=== PATIENT | female | born 1940 | race Caucasian/White ===

== ENCOUNTER 2020-12-22 08:13 | Outpatient (REF) | payer MEDICARE, OTHER, SELFPAY ==
--- NOTE | ~2020-12-22 | MM_ITS ---
EXAMINATION: MM SCREENING DIGITAL BREAST TOMOSYNTHESIS, BILATERAL CLINICAL INFORMATION: Screening. Asymptomatic. Status post right lumpectomy. COMPARISON: Mammography: December 18, 2019 and studies dating back to June 12, 2012 TECHNIQUE: Digital breast tomosynthesis is performed in both the craniocaudal and mediolateral oblique views along with computer-aided detection (CAD). Synthesized 2D images are generated from the tomosynthesis. FINDINGS: There are scattered areas of fibroglandular density (ACR BI-RADS breast composition Category b). There are no significant masses, abnormal calcifications, or other abnormalities. Postsurgical change again seen within the right breast. MM/MM tomosynthesis screening BI IMPRESSION: There are no significant changes from prior study. ASSESSMENT: BI-RADS 2: Benign RECOMMENDATION: Routine annual mammography screening. This patient's information was entered into a reminder system with a target due date for their next mammogram.
== END 2020-12-22 08:14 | disposition home or self-care (01) ==
LOC: HO.MAMMO 08:13
PROVIDERS: PCP Student in an Organized Health Care Education/Training Program; Visit Provider Student in an Organized Health Care Education/Training Program
DX: Z12.31 Encounter for screening mammogram for malignant neoplasm of breast (principal)
CPT/HCPCS: 77063; 77067

== ENCOUNTER 2021-12-13 14:47 | Inpatient (IN) | payer MEDICARE, OTHER, SELFPAY ==
[2021-12-13] VITALS (10 sets, daily range): BP systolic 98–194; BP diastolic 47–90; PULSE 75–114; RESP 16–22; TEMP 36.7–37.9; O2SAT 83–100; BMI 22.2
--- NOTE | ~2021-12-13 | XR_ITS ---
EXAMINATION: XR CHEST CLINICAL INFORMATION: Dyspnea. COMPARISON: None TECHNIQUE: Frontal view of the chest was obtained. FINDINGS: The lungs are fairly well-expanded and clear of acute pneumonic process. There is slight prominence of bilateral parahilar vascular/interstitial markings suspicious for interstitial pneumonitis or edema. The heart size is normal. There is moderate spondylosis of dorsal spine. No lytic process. XR/XR chest 1V IMPRESSION: Prominent bilateral parahilar vascular/interstitial markings suggestive of interstitial pneumonitis or edema.
--- NOTE | 2021-12-13 15:01 | ECG_ITS ---
Test Reason : sob Blood Pressure : / mmHG Vent. Rate : 100 BPM Atrial Rate : 100 BPM P-R Int : 142 ms QRS Dur : 068 ms QT Int : 356 ms P-R-T Axes : 000 136 141 degrees QTc Int : 459 ms Suspect limb lead reversal, interpretation assumes no reversal Normal sinus rhythm Low voltage QRS Lateral infarct , age undetermined Abnormal ECG When compared with ECG of 10-JAN-2009 14:54, Lateral infarct is now Present ST now depressed in Anterolateral leads Nonspecific T wave abnormality now evident in Lateral leads Referred By: Vera Blanco Electronically Signed By:SIS HULL MD
--- NOTE | 2021-12-13 15:09 | ED_ITS ---
HPI - SOB/Dyspnea General Chief Complaint: Dyspnea Stated Complaint: DIFF BREATHING Time Seen by Provider: 12/13/21 15:01 Source: patient Mode of arrival: EMS (from PCP office) Limitations: no limitations History of Present Illness HPI Narrative: 81 yo female hx of smoking, HTN, HLD, remote pneumonia in the past comes in with c/o 5 days of cough, shortness of breath, low grade fevers and not feeling well. Presented to PCP office found to be hypoxic with sats in 80s. She denies travel or sick contacts. She did start using an air conditioner (wall or mini split) about a week ago. MD elicited complaint: shortness of breath and cough Pertinent past history: pneumonia Onset (ago): day(s) (5) Timing: progressively worsening Severity: severe Exacerbating factors: exertion and coughing Relieving factors: oxygen and rest Associated symptoms: fever, cough, wheezing and chest congestion Treatment prior to arrival: oxygen Related Data Home Medications Medication Instructions Recorded Confirmed gemfibrozil 600 mg tablet 600 mg PO BID 12/13/21 12/13/21 hydrochlorothiazide 25 mg tablet 25 mg PO BEDTIME 12/13/21 12/13/21 Allergies Allergy/AdvReac Type Severity Reaction Status Date / Time No Known Allergies Allergy Verified 12/13/21 15:01 [No Known Allergies*] Review of Systems Review of Systems: Constitutional : pos Fever, pos Chills ENT/Mouth : No sore throat, No Rhinorrhea, No Swallowing Difficulty Eyes: No Eye Pain, No Swelling, No Redness Cardiovascular : No Chest Pain, positive SOB, No Orthopnea, positive Edema Respiratory : pos Cough, pos Sputum, pos Wheezing, positive dyspnea Gastrointestinal : No Nausea, No Vomiting, No Diarrhea, No abdominal Pain, No Hematochezia, No Melena Genitourinary : No Dysuria, No Urinary Frequency, No Hematuria Musculoskeletal : No joint pain, No Myalgias Skin : No Skin Lesions, No rash Neuro : pos Weakness, No Numbness, No Dizziness, No Headache Psych : No Anxiety/Panic, No Depression Heme/Lymph: No Bruising, No Lymphadenopathy Endocrine : No Polyuria, No Polydipsia All other systems reviewed and are negative PMFSH Past Medical History Attestation statement: The following information was validated with the patient. Medical History HTN (hypertension) Hypercholesteremia IBS (irritable bowel syndrome) Social History Social History Patient Tobacco Use Status: Current everyday Tobacco user Use of substances other than those prescribed or required for medical reasons: No Advance Directives: No Advance Directives Information Provided: Yes Physical Exam Vital Signs: Vital Signs: Last Vital Signs Temp 99.8 F 12/13/21 14:53 Pulse 107 H 12/13/21 16:03 Resp 21 H 12/13/21 16:03 BP 119/66 12/13/21 16:03 Pulse Ox 96 12/13/21 16:03 O2 Del Method 12/13/21 16:03 O2 Flow Rate 2 12/13/21 16:03 BMI result Body Mass Index 22.2 Appearance: Alert. Oriented X3. Mild acute distress. Eyes: Pupils equal, round and reactive to light. ENT: Pharynx normal. Neck: Normal inspection. Neck supple. CVS: tachycardic heart rate and rhythm. Pulses normal. Respiratory: Mild respiratory distress. Breath sounds coarse with junky cough along with rales at bases, upper lungs wheezes noted Abdomen: Soft and nontender. Skin: Skin warm and dry. Normal skin color. Normal skin turgor. Extremities: No lower extremity edema. No calf ttp Neuro: Oriented X 3. No motor deficit. No sensory deficit. Course Course Course Narrative: patient denies chest pain has new ST deg depressions but EKG done while patient initially arrived hypoxic, trop flat possibly related to demand from hypoxia MDM - SOB/Dyspnea MDM Narrative Medical decision making narrative: 81 yo female hx of smoking, HTN, HLD, remote pneumonia comes in with 5 days of cough, fevers, [place] - very coarse and chest congestion. At this time the patient is hypoxic on arrival will obtain labs, EKG, CXR for pneumonia, cultures, supplemental O2, she is wheezing on exam and is a heavy smoker IV solumedrol and neb ordered along with empiric rocephin. Likely admit. Lab Data Result diagrams: 12/13/21 15:28 12/13/21 15:28 Labs: Lab Results 12/13/21 12/13/21 12/13/21 Range/Units 15:28 15:28 15:28 WBC 11.8 H (4.8-10.8) X10*3/uL RBC 4.50 (4.20-5.50) X10*6/uL Hgb 14.9 (12.0-16.0) g/dl Hct 46.2 (37.0-47.0) % MCV 102.7 H (80.0-98.0) fL MCH 33.1 H (27.0-33.0) pg MCHC 32.3 (31.0-35.0) g/dl RDW 12.8 (11.0-16.0) % Plt Count 276 (160-400) X10*3/uL MPV 10.2 (9.4-12.3) fL Immature Gran % (Auto) 0.8 H (0.0-0.4) % Neut % (Auto) 86.6 H (45-73) % Lymph % (Auto) 7.0 L (20-40) % [place] % (Auto) 4.5 (2-11) % Eos % (Auto) 0.8 (0-4) % Baso % (Auto) 0.3 (0-2) % Lymph # (Auto) 0.8 L (1.2-4.9) X10*3/uL [place] # (Auto) 0.5 (0.1-1.2) X10*3/uL Eos # (Auto) 0.1 (0.0-0.4) X10*3/uL Baso # (Auto) 0.0 (0.0-0.2) X10*3/uL Abs Immat Gran (auto) 0.09 H (0.00-0.03) X10*3/uL Absolute Neuts (auto) 10.2 H (2.0-8.3) x10*3/uL Absolute Nucleated RBC 0.000 (0.0-0.012) X10*3/uL Nucleated RBC % (auto) 0.0 (0.0-0.2) /100WBC PT (9.9-13.0) SEC INR (0.9-1.1) VBG pH (7.32-7.43) VBG pCO2 mmHg VBG pO2 mmHg VBG HCO3 (22-26) mmol/L VBG O2 Saturation % VBG Base Excess mmol/L Sodium 139 (135-145) mmol/L Potassium 3.6 (3.3-5.1) mmol/L Chloride 97 (96-108) mmol/L Carbon Dioxide 25 (22-29) mmol/L Anion Gap 21 H (12-20) BUN 23 H (9-16) mg/dL Creatinine 1.26 (0.5-1.4) mg/dL Estim Creat Clear Calc 33.3 Estimated GFR 41 Random Glucose 137 H (60-115) mg/dL Lactic Acid (0.5-2.0) mmol/L Calcium 9.2 (8.4-10.2) mg/dL Magnesium 2.3 (1.6-2.6) mg/dL Total Bilirubin 0.4 (0.0-1.0) mg/dL Direct Bilirubin 0.2 (0.0-0.5) mg/dL AST 27 (5-31) U/L ALT 14 (0-31) U/L Alkaline Phosphatase 91 (39-117) U/L Troponin I High Sens 5.7 (<3.5-17.0) ng/L B-Natriuretic Peptide 86 (<100) pg/mL Total Protein 7.7 (6.5-8.0) g/dL Albumin 4.5 (3.5-5.0) g/dL Influenza Type A (PCR) (Negative) Influenza Type B (PCR) (Negative) RSV RNA Qual (PCR) (Negative) SARS-CoV-2 RNA (RT-PCR) (Negative) 12/13/21 12/13/21 12/13/21 Range/Units 15:28 15:28 15:28 WBC (4.8-10.8) X10*3/uL RBC (4.20-5.50) X10*6/uL Hgb (12.0-16.0) g/dl Hct (37.0-47.0) % MCV (80.0-98.0) fL MCH (27.0-33.0) pg MCHC (31.0-35.0) g/dl RDW (11.0-16.0) % Plt Count (160-400) X10*3/uL MPV (9.4-12.3) fL Immature Gran % (Auto) (0.0-0.4) % Neut % (Auto) (45-73) % Lymph % (Auto) (20-40) % [place] % (Auto) (2-11) % Eos % (Auto) (0-4) % Baso % (Auto) (0-2) % Lymph # (Auto) (1.2-4.9) X10*3/uL [place] # (Auto) (0.1-1.2) X10*3/uL Eos # (Auto) (0.0-0.4) X10*3/uL Baso # (Auto) (0.0-0.2) X10*3/uL Abs Immat Gran (auto) (0.00-0.03) X10*3/uL Absolute Neuts (auto) (2.0-8.3) x10*3/uL Absolute Nucleated RBC (0.0-0.012) X10*3/uL Nucleated RBC % (auto) (0.0-0.2) /100WBC PT 11.8 (9.9-13.0) SEC INR 1.0 (0.9-1.1) VBG pH (7.32-7.43) VBG pCO2 mmHg VBG pO2 mmHg VBG HCO3 (22-26) mmol/L VBG O2 Saturation % VBG Base Excess mmol/L Sodium (135-145) mmol/L Potassium (3.3-5.1) mmol/L Chloride (96-108) mmol/L Carbon Dioxide (22-29) mmol/L Anion Gap (12-20) BUN (9-16) mg/dL Creatinine (0.5-1.4) mg/dL Estim Creat Clear Calc Estimated GFR Random Glucose (60-115) mg/dL Lactic Acid 2.0 (0.5-2.0) mmol/L Calcium (8.4-10.2) mg/dL Magnesium (1.6-2.6) mg/dL Total Bilirubin (0.0-1.0) mg/dL Direct Bilirubin (0.0-0.5) mg/dL AST (5-31) U/L ALT (0-31) U/L Alkaline Phosphatase (39-117) U/L Troponin I High Sens (<3.5-17.0) ng/L B-Natriuretic Peptide (<100) pg/mL Total Protein (6.5-8.0) g/dL Albumin (3.5-5.0) g/dL Influenza Type A (PCR) NEGATIVE (Negative) Influenza Type B (PCR) NEGATIVE (Negative) RSV RNA Qual (PCR) POSITIVE A (Negative) SARS-CoV-2 RNA (RT-PCR) NEGATIVE (Negative) 12/13/21 Range/Units 15:30 WBC (4.8-10.8) X10*3/uL RBC (4.20-5.50) X10*6/uL Hgb (12.0-16.0) g/dl Hct (37.0-47.0) % MCV (80.0-98.0) fL MCH (27.0-33.0) pg MCHC (31.0-35.0) g/dl RDW (11.0-16.0) % Plt Count (160-400) X10*3/uL MPV (9.4-12.3) fL Immature Gran % (Auto) (0.0-0.4) % Neut % (Auto) (45-73) % Lymph % (Auto) (20-40) % [place] % (Auto) (2-11) % Eos % (Auto) (0-4) % Baso % (Auto) (0-2) % Lymph # (Auto) (1.2-4.9) X10*3/uL [place] # (Auto) (0.1-1.2) X10*3/uL Eos # (Auto) (0.0-0.4) X10*3/uL Baso # (Auto) (0.0-0.2) X10*3/uL Abs Immat Gran (auto) (0.00-0.03) X10*3/uL Absolute Neuts (auto) (2.0-8.3) x10*3/uL Absolute Nucleated RBC (0.0-0.012) X10*3/uL Nucleated RBC % (auto) (0.0-0.2) /100WBC PT (9.9-13.0) SEC INR (0.9-1.1) VBG pH 7.35 (7.32-7.43) VBG pCO2 52 mmHg VBG pO2 35 mmHg VBG HCO3 29 H (22-26) mmol/L VBG O2 Saturation 50.0 % VBG Base Excess 2.7 mmol/L Sodium (135-145) mmol/L Potassium (3.3-5.1) mmol/L Chloride (96-108) mmol/L Carbon Dioxide (22-29) mmol/L Anion Gap (12-20) BUN (9-16) mg/dL Creatinine (0.5-1.4) mg/dL Estim Creat Clear Calc Estimated GFR Random Glucose (60-115) mg/dL Lactic Acid (0.5-2.0) mmol/L Calcium (8.4-10.2) mg/dL Magnesium (1.6-2.6) mg/dL Total Bilirubin (0.0-1.0) mg/dL Direct Bilirubin (0.0-0.5) mg/dL AST (5-31) U/L ALT (0-31) U/L Alkaline Phosphatase (39-117) U/L Troponin I High Sens (<3.5-17.0) ng/L B-Natriuretic Peptide (<100) pg/mL Total Protein (6.5-8.0) g/dL Albumin (3.5-5.0) g/dL Influenza Type A (PCR) (Negative) Influenza Type B (PCR) (Negative) RSV RNA Qual (PCR) (Negative) SARS-CoV-2 RNA (RT-PCR) (Negative) ECG Data Attestation: I personally reviewed and interpreted this ECG as follows: ECG interpretation date: 12/13/21 ECG interpretation time: 15:17 Interpretation: Rate: 99 Rhythm: NSR [place]: normal Normal P waves. Normal RAJNI. Normal QRS complex. ST T wave : nonspecific no SURENDRA new inferior and lateral ST depressions qTC: prolonged prior studies: changed from 2008 The study has been interpreted contemporaneously by me. . Discharge Plan Discharge Clinical Impression: Hypoxia, Community acquired pneumonia, RSV bronchitis, ST segment changes on electrocardiogram Patient Disposition: Admitted As Inpatient
--- NOTE | 2021-12-13 15:12 | ECG_ITS ---
Test Reason : cp Blood Pressure : / mmHG Vent. Rate : 099 BPM Atrial Rate : 099 BPM P-R Int : 142 ms QRS Dur : 070 ms QT Int : 358 ms P-R-T Axes : 068 061 071 degrees QTc Int : 459 ms Normal sinus rhythm Possible Left atrial enlargement Nonspecific ST abnormality Abnormal ECG When compared with ECG of 13-DEC-2021 15:01, QRS axis Shifted left Nonspecific T wave abnormality no longer evident in Lateral leads Referred By: Vera Blanco Electronically Signed By:SIS HULL MD
[2021-12-13] MEDS: Acetaminophen 325 MG TABLET 650 MG PO ×2 (15:16→21:03)
[2021-12-13] MEDS: methylPREDNISolone Sod Succ 125 MG/2 ML VIAL IVPUSH (15:17)
[2021-12-13] MEDS: Albuterol Sulfate (0.083%) 2.5 MG/3 ML VIAL.NEB INHALE (15:26)
[2021-12-13] MEDS: cefTRIAXone sodium 1 GM in 0.9 % Sodium Chloride 50 ML IV (15:32)
[2021-12-13 15:39] LABS: MANUAL DIFF FLAG NO
[2021-12-13 15:40] LABS: Basophils Percent Auto 0.3 % (0-2); Eosinophils Absolute Auto 0.1 X10*3/uL (0.0-0.4); Eosinophils Percent Auto 0.8 % (0-4); Hematocrit 46.2 % (37.0-47.0); Hemoglobin 14.9 g/dl (12.0-16.0); Imm Gran Abs Auto 0.09 X10*3/uL (0.00-0.03); Imm Gran Pct Auto 0.8 % (0.0-0.4); Lymphocytes Absolute Auto 0.8 X10*3/uL (1.2-4.9); Mean Corpuscular HGB Conc 32.3 g/dl (31.0-35.0); Mean Corpuscular Hemoglobin 33.1 pg (27.0-33.0); Mean Corpuscular Volume 102.7 fL (80.0-98.0); Mean Platelet Volume 10.2 fL (9.4-12.3); Monocytes Absolute Auto 0.5 X10*3/uL (0.1-1.2); Monocytes Percent Auto 4.5 % (2-11); Neutrophils Absolute Auto 10.2 x10*3/uL (2.0-8.3); Neutrophils Percent Auto 86.6 % (45-73); Platelet Count 276 X10*3/uL (160-400); Red Cell Distribution Width 12.8 % (11.0-16.0); White Blood Count 11.8 X10*3/uL (4.8-10.8)
[2021-12-13 15:44] LABS: VBG Base Excess 2.7 mmol/L; VBG HCO3 29 mmol/L (22-26); VBG pCO2 52 mmHg; VBG pH 7.35 (7.32-7.43); VBG pO2 35 mmHg
[2021-12-13 15:48] LABS: Prothrombin Time 11.8 SEC (9.9-13.0)
[2021-12-13 16:03] LABS: Alanine Aminotransferase 14 U/L (0-31); Albumin Level 4.5 g/dL (3.5-5.0); Alkaline Phosphatase 91 U/L (39-117); Anion Gap 21 (12-20); Aspartate Amino Transferase 27 U/L (5-31); Bilirubin Direct 0.2 mg/dL (0.0-0.5); Bilirubin Total 0.4 mg/dL (0.0-1.0); Blood Urea Nitrogen 23 mg/dL (9-16); Calcium 9.2 mg/dL (8.4-10.2); Carbon Dioxide 25 mmol/L (22-29); Chloride 97 mmol/L (96-108); Creatinine Clr Calc Pharmacy 33.3; Estimated Glomerular Filt Rate 41; Glucose Random 137 mg/dL (60-115); Magnesium 2.3 mg/dL (1.6-2.6); Potassium 3.6 mmol/L (3.3-5.1); Sodium 139 mmol/L (135-145); Total Protein 7.7 g/dL (6.5-8.0)
[2021-12-13 16:16] LABS: B Type Natriuretic Peptide 86 pg/mL (<100); Troponin-I High Sensitivity 5.7 ng/L (<3.5-17.0)
[2021-12-13 16:20] LABS: Influenza A PCR NEGATIVE (Negative); Influenza B PCR NEGATIVE (Negative); Resp Syncy Virus RNA Qual PCR POSITIVE (Negative); SARS COV2 PCR INHOUSE NEGATIVE (Negative)
--- NOTE | 2021-12-13 16:24 | PHA.MEDREC ---
med rec complete, no issues Pharmacy Consult ? Medication Reconciliation Pharmacy has completed the medication reconciliation.
--- NOTE | 2021-12-13 16:29 | P.HPHOSP_ITS ---
History of Present Illness Date of Service: 12/13/21 Chief Complaint: Shortness of breath 81-year-old woman presented to the ER with complaints of worsening shortness of breath over the last several days. She reports a family member was recently diagnosed with RSV. She reported fever last night. She denied chest pain, nausea, vomiting, diarrhea, history of asthma or COPD. She continues to smoke about 5-6 cigarettes a day. She reports her symptoms started with allergy type symptoms initially. Chest x-ray shows some atelectasis, white blood cell count 11.8, initial oxygen saturation of 83% on room air. In the ER, she was given albuterol, Solu-Medrol, Rocephin and azithromycin. She will be admitted for further management and treatment of acute hypoxic respiratory failure secondary to RSV. Review of Systems Review of Systems: reported fever last night respiratory see HPI cardiovascular denies chest pain gastrointestinal denies any dysphagia abdominal pain nausea vomiting or diarrhea genitourinary denies any dysuria frequency or hematuria musculoskeletal denies any joint pain or swelling neuropsych denies any weakness or seizures all other systems reviewed are negative [facility] Medical History (Updated 12/13/21 @ 16:35 by Xin Keene NP) Diverticulosis HTN (hypertension) Hypercholesteremia IBS (irritable bowel syndrome) Family History (Updated 12/13/21 @ 16:34 by Xin Keene NP) Sister Breast cancer Surgical History (Updated 12/13/21 @ 16:35 by Xin Keene NP) H/O colonoscopy Social History (Updated 12/13/21 @ 16:35 by Xin Keene NP) Patient Tobacco Use Status: Current everyday Tobacco user Cigarettes Per Day: 5 Use of substances other than those prescribed or required for medical reasons: No Advance Directives: No Advance Directives Information Provided: Yes Meds Allergies Allergy/AdvReac Type Severity Reaction Status Date / Time No Known Allergies Allergy Verified 12/13/21 15:01 [No Known Allergies*] Active Medications: Current Medications Azithromycin 500 mg/ Sodium (Chloride) 250 mls @ 125 mls/hr IV ONCE ONE Stop: 12/13/21 17:53 Sodium Chloride (Ns) 500 mls @ 500 mls/hr IV .Q1H WOODY Stop: 12/13/21 17:14 Pharmacy Consult (Consult Rx Perform Med Rec) 1 each MISCELLANE ONCE PRN PRN Reason: Consult order Home Medications Medication Instructions Recorded Confirmed Last Taken Type gemfibrozil 600 mg tablet 600 mg PO BID 12/13/21 12/13/21 12/12/21 History hydrochlorothiazide 25 mg tablet 25 mg PO BEDTIME 12/13/21 12/13/21 12/12/21 His tory pravastatin 20 mg tablet 20 mg PO BEDTIME 12/13/21 12/13/21 12/12/21 History Physical Exam Vital Signs and Narrative: Vital Signs: Last Vital Signs Temp 99.8 F 12/13/21 14:53 Pulse 107 H 12/13/21 16:03 Resp 21 H 12/13/21 16:03 BP 119/66 12/13/21 16:03 Pulse Ox 96 12/13/21 16:03 O2 Del Method 12/13/21 16:03 O2 Flow Rate 2 12/13/21 16:03 BMI result Body Mass Index 22.2 Results Labs CBC and Chem 7: 12/13/21 15:28 12/13/21 15:28 Labs: Laboratory Results - last 24 hr 12/13/21 12/13/21 12/13/21 15:28 15:28 15:28 MCV 102.7 H MCH 33.1 H MCHC 32.3 RDW 12.8 Plt Count 276 MPV 10.2 Immature Gran % (Auto) 0.8 H Neut % (Auto) 86.6 H Lymph % (Auto) 7.0 L [place] % (Auto) 4.5 Eos % (Auto) 0.8 Baso % (Auto) 0.3 Lymph # (Auto) 0.8 L [place] # (Auto) 0.5 Eos # (Auto) 0.1 Baso # (Auto) 0.0 Abs Immat Gran (auto) 0.09 H Absolute Neuts (auto) 10.2 H Absolute Nucleated RBC 0.000 Nucleated RBC % (auto) 0.0 PT INR VBG pH VBG pCO2 VBG pO2 VBG HCO3 VBG O2 Saturation VBG Base Excess Anion Gap 21 H Estim Creat Clear Calc 33.3 Estimated GFR 41 Random Glucose 137 H Lactic Acid Calcium 9.2 Magnesium 2.3 Total Bilirubin 0.4 Direct Bilirubin 0.2 AST 27 ALT 14 Alkaline Phosphatase 91 Troponin I High Sens 5.7 B-Natriuretic Peptide 86 Total Protein 7.7 Albumin 4.5 Influenza Type A (PCR) Influenza Type B (PCR) RSV RNA Qual (PCR) SARS-CoV-2 RNA (RT-PCR) 12/13/21 12/13/21 12/13/21 15:28 15:28 15:28 MCV MCH MCHC RDW Plt Count MPV Immature Gran % (Auto) Neut % (Auto) Lymph % (Auto) [place] % (Auto) Eos % (Auto) Baso % (Auto) Lymph # (Auto) [place] # (Auto) Eos # (Auto) Baso # (Auto) Abs Immat Gran (auto) Absolute Neuts (auto) Absolute Nucleated RBC Nucleated RBC % (auto) PT 11.8 INR 1.0 VBG pH VBG pCO2 VBG pO2 VBG HCO3 VBG O2 Saturation VBG Base Excess Anion Gap Estim Creat Clear Calc Estimated GFR Random Glucose Lactic Acid 2.0 Calcium Magnesium Total Bilirubin Direct Bilirubin AST ALT Alkaline Phosphatase Troponin I High Sens B-Natriuretic Peptide Total Protein Albumin Influenza Type A (PCR) NEGATIVE Influenza Type B (PCR) NEGATIVE RSV RNA Qual (PCR) POSITIVE A SARS-CoV-2 RNA (RT-PCR) NEGATIVE 12/13/21 15:30 MCV MCH MCHC RDW Plt Count MPV Immature Gran % (Auto) Neut % (Auto) Lymph % (Auto) [place] % (Auto) Eos % (Auto) Baso % (Auto) Lymph # (Auto) [place] # (Auto) Eos # (Auto) Baso # (Auto) Abs Immat Gran (auto) Absolute Neuts (auto) Absolute Nucleated RBC Nucleated RBC % (auto) PT INR VBG pH 7.35 VBG pCO2 52 VBG pO2 35 VBG HCO3 29 H VBG O2 Saturation 50.0 VBG Base Excess 2.7 Anion Gap Estim Creat Clear Calc Estimated GFR Random Glucose Lactic Acid Calcium Magnesium Total Bilirubin Direct Bilirubin AST ALT Alkaline Phosphatase Troponin I High Sens B-Natriuretic Peptide Total Protein Albumin Influenza Type A (PCR) Influenza Type B (PCR) RSV RNA Qual (PCR) SARS-CoV-2 RNA (RT-PCR) Assessment and Plan (1) Hypoxia: Status: Acute Plan 81-year-old woman admitted acute hypoxic respiratory failure secondary to RSV Acute hypoxic respiratory failure Secondary to RSV, clinical pneumonia Chest x-ray showing prominent bilateral perihilar vascular interstitial markings suggestive of interstitial pneumonitis Has resolved with oxygen therapy continue supplemental oxygen Rocephin, azithromycin Follow cultures Robitussin for cough Tobacco use Discussed the importance of smoking cessation Offered NRT Hypertension Continue hydrochlorothiazide Hyperlipidemia Continue statin DVT prophylaxis with Lovenox Attending Dr Crowder Full code Patient likely requires 2 midnights For treatment of acute hypoxic respiratory failure secondary to RSV and clinical pneumonia requiring IV antibiotics and s upplemental oxygen Quality Stroke Does the patient have a stroke diagnosis?: No VTE Prior VTE?: No VTE Risk Level:: Medical - moderate - high VTE Device Contraindication: Treatment Not Indicated VTE Drug Contraindication: N/A - Med Ordered
[2021-12-13] MEDS: 0.9 % Sodium Chloride 500 ML IV (16:35)
[2021-12-13] MEDS: Azithromycin 500 MG in 0.9 % Sodium Chloride 250 ML 125 MG IV (16:36)
[2021-12-13 17:27] LABS: Venous Blood Gas Refer to POC result
[2021-12-13] MEDS: Enoxaparin Sodium 40 MG/0.4 ML SYRINGE SUBCUT (18:44)
[2021-12-13 20:48] LABS: Appearance Urine CLEAR; Color Urine YELLOW; Glucose Urine UA NEG (NEG); Leukocyte Esterase Urine 2+ (NEG); Nitrite Urine POS (NEG); PH 5.5 (5.0-8.0); UACC Culture Trigger YES; Urine Blood 2+ (NEG); Urine Ketones NEG (NEG); Urine Protein NEG (NEG-TRACE)
[2021-12-13 20:55] LABS: Bacteria Urine 1+ /LPF; Squamous Epithelial Cell Urine TRACE /LPF
[2021-12-13] MEDS: hydroCHLOROthiazide 25 MG TABLET PO (20:57)
[2021-12-13] MEDS: Pravastatin Sodium 20 MG TABLET PO (20:57)
[2021-12-14] VITALS (9 sets, daily range): BP systolic 102–123; BP diastolic 39–63; PULSE 70–104; RESP 15–22; TEMP 36.7–36.8; O2SAT 94–98
--- NOTE | 2021-12-14 | ECG_ITS ---
Test Reason : SOB Blood Pressure : / mmHG Vent. Rate : 080 BPM Atrial Rate : 080 BPM P-R Int : 152 ms QRS Dur : 072 ms QT Int : 422 ms P-R-T Axes : 069 056 075 degrees QTc Int : 486 ms Normal sinus rhythm Nonspecific ST abnormality Abnormal ECG When compared with ECG of 13-DEC-2021 15:05, No significant change was found Referred By: Brianna Fernandez Electronically Signed By:SIS HULL MD
[2021-12-14] MEDS: 0.9 % Sodium Chloride Flush 3 ML SYRINGE IVFLUSH (00:53)
[2021-12-14] MEDS: guaiFENesin DM 100/10/5 ML 5 ML SYRUP PO (01:14)
[2021-12-14 05:09] LABS: Basophils Percent Auto 0.2 % (0-2); Hematocrit 41.5 % (37.0-47.0); Hemoglobin 13.3 g/dl (12.0-16.0); Imm Gran Abs Auto 0.05 X10*3/uL (0.00-0.03); Imm Gran Pct Auto 0.6 % (0.0-0.4); Lymphocytes Percent Auto 11.6 % (20-40); MANUAL DIFF FLAG NO; Mean Corpuscular Hemoglobin 33.3 pg (27.0-33.0); Mean Corpuscular Volume 103.8 fL (80.0-98.0); Mean Platelet Volume 10.4 fL (9.4-12.3); Monocytes Absolute Auto 0.4 X10*3/uL (0.1-1.2); Monocytes Percent Auto 4.9 % (2-11); Neutrophils Absolute Auto 7.4 x10*3/uL (2.0-8.3); Neutrophils Percent Auto 82.7 % (45-73); Platelet Count 263 X10*3/uL (160-400); Red Cell Distribution Width 12.6 % (11.0-16.0); White Blood Count 8.9 X10*3/uL (4.8-10.8)
[2021-12-14 05:26] LABS: Anion Gap 17 (12-20); Blood Urea Nitrogen 27 mg/dL (9-16); Calcium 9.1 mg/dL (8.4-10.2); Carbon Dioxide 27 mmol/L (22-29); Chloride 100 mmol/L (96-108); Creatinine Clr Calc Pharmacy 33.6; Estimated Glomerular Filt Rate 41; Glucose Random 122 mg/dL (60-115); Potassium 3.9 mmol/L (3.3-5.1); Sodium 140 mmol/L (135-145)
[2021-12-14] MEDS: gemfibroziL 600 MG TABLET PO ×2 (09:35→21:06)
[2021-12-14] MEDS: Nicotine 7 MG PATCH.TD24 TRANSDERMA (09:35)
--- NOTE | 2021-12-14 11:18 | P.PNIM_ITS ---
Subjective Subjective Date of Service: 12/14/21 Interval History: Seen and examined this morning Follow-up for pneumonia Reports recently around granddaughter who had a cold Patient reports ongoing cough, dyspnea on exertion Review of Systems Review of Systems: Yes all other systems are reviewed and are negative Constitutional Constitutional: Denies chills and Denies fever(s) Cardiovascular Cardiovascular: Denies chest pain, Denies palpitations and Reports dyspnea Respiratory Respiratory: Reports cough and Reports dyspnea Gastrointestinal Gastrointestinal: Denies abdominal pain, Denies nausea and Denies vomiting Endocrine Endocrine: Denies palpitations Physical Exam Vital Signs: Vital Signs: Last Vital Signs Temp 98.1 F 12/14/21 05:09 Pulse 72 12/14/21 06:28 Resp 22 H 12/14/21 06:28 BP 109/56 L 12/14/21 06:28 Pulse Ox 96 12/14/21 06:29 O2 Del Method 12/14/21 06:29 O2 Flow Rate 3 12/14/21 06:28 Oxygen Flow Rate 3 12/14/21 06:29 BMI result Body Mass Index 22.2 Const: General: comfortable, alert and awake Nutritional Appearance: average body habitus Orientation/consciousness: patient oriented x3 Resp: Other: Primarily bilateral expiratory wheeze Effort & Inspection: normal respiratory effort and able to speak in complete sentences Auscultation: wheezes Cardio: Rate: regular rate Heart sounds: S1 normal heart sound present and S2 normal heart sound present GI: Inspection: No distended Palpation (GI): Soft to palpation and nontender Neuro: General: patient oriented x3 Extrem: Other: Able to move all 4 extremities spontaneously General: Yes no pedal edema Objective Data Active Medications Acetaminophen (Acetaminophen 325 Mg Tablet) 650 mg PO Q6H PRN PRN Reason: Pain, Mild (Pain Scale 1-3) Last Admin: 12/13/21 21:03 Dose: 650 mg Documented By: JAKUB Albuterol/Ipratropium (Albuterol/Iprat 2.5/0.5mg 3 Ml Ampul.Neb) 3 ml INHALE RQ4H PRN PRN Reason: Shortness of Breath/Wheezing Enoxaparin Sodium (Enoxaparin Sodium 40 Mg/0.4 Ml Syringe) 40 mg SUBCUT Q24H [facility] Last Admin: 12/13/21 18:44 Dose: 40 mg Documented By: HO.SANTEE Gemfibrozil (Gemfibrozil 600 Mg Tablet) 600 mg PO BID [facility] Last Admin: 12/14/21 09:35 Dose: 600 mg Documented By: GWENDOLYN Guaifenesin/Dextromethorphan (Guaifenesin Dm 100/10/5 Ml 5 Ml Syrup) 5 ml PO Q6H PRN PRN Reason: Cough Last Admin: 12/14/21 01:14 Dose: 5 ml Documented By: JAKUB Hydrochlorothiazide (Hydrochlorothiazide 25 Mg Tablet) 25 mg PO BEDTIME [facility]; Protocol Last Admin: 12/13/21 20:57 Dose: 25 mg Documented By: JAKUB Ceftriaxone Sodium 1 gm/ (Sodium Chloride) 50 mls @ 100 mls/hr IV Q24H [facility] Azithromycin 500 mg/ Sodium (Chloride) 250 mls @ 125 mls/hr IV Q24H [facility] Nicotine (Nicotine 7 Mg Patch.Td24) 7 mg TRANSDERMA DAILY [facility] Last Admin: 12/14/21 09:35 Dose: 7 mg Documented By: GWENDOLYN Ondansetron HCl (Ondansetron Hcl 4 Mg/2 Ml Vial) 4 mg IVPUSH Q8H PRN PRN Reason: Nausea and Vomiting Pharmacy Consult (Consult Rx Perform Med Rec) 1 each MISCELLANE ONCE PRN PRN Reason: Consult order Pravastatin Sodium (Pravastatin Sodium 20 Mg Tablet) 20 mg PO BEDTIME [facility] Last Admin: 12/13/21 20:57 Dose: 20 mg Documented By: JAKUB Sodium Chloride (0.9 % Sodium Chloride Flush 3 Ml Syringe) 3 ml IVFLUSH QSHIFT [facility] Last Admin: 12/14/21 10:00 Dose: Not Given Documented By: GWENDOLYN Non-Admin Reason: Previously Administered Labs CBC & Chem 7: 12/14/21 04:38 12/14/21 04:38 Labs: Laboratory Results - last 24 hr 12/13/21 12/13/21 12/13/21 15:28 15:28 15:28 MCV 102.7 H MCH 33.1 H MCHC 32.3 RDW 12.8 Plt Count 276 MPV 10.2 Immature Gran % (Auto) 0.8 H Neut % (Auto) 86.6 H Lymph % (Auto) 7.0 L [place] % (Auto) 4.5 Eos % (Auto) 0.8 Baso % (Auto) 0.3 Lymph # (Auto) 0.8 L [place] # (Auto) 0.5 Eos # (Auto) 0.1 Baso # (Auto) 0.0 Abs Immat Gran (auto) 0.09 H Absolute Neuts (auto) 10.2 H Absolute Nucleated RBC 0.000 Nucleated RBC % (auto) 0.0 PT INR VBG pH VBG pCO2 VBG pO2 VBG HCO3 VBG O2 Saturation VBG Base Excess Anion Gap 21 H Estim Creat Clear Calc 33.3 Estimated GFR 41 Random Glucose 137 H Lactic Acid Calcium 9.2 Magnesium 2.3 Total Bilirubin 0.4 Direct Bilirubin 0.2 AST 27 ALT 14 Alkaline Phosphatase 91 Troponin I High Sens 5.7 B-Natriuretic Peptide 86 Total Protein 7.7 Albumin 4.5 Urine Color Urine Appearance Urine pH Ur Specific [place] Urine Protein Urine Glucose (UA) Urine Ketones Urine Blood Urine Nitrite Ur Leukocyte Esterase Urine RBC Urine WBC Ur Squamous Epith Cells Urine Bacteria Influenza Type A (PCR) Influenza Type B (PCR) RSV RNA Qual (PCR) SARS-CoV-2 RNA (RT-PCR) 12/13/21 12/13/21 12/13/21 15:28 15:28 15:28 MCV MCH MCHC RDW Plt Count MPV Immature Gran % (Auto) Neut % (Auto) Lymph % (Auto) [place] % (Auto) Eos % (Auto) Baso % (Auto) Lymph # (Auto) [place] # (Auto) Eos # (Auto) Baso # (Auto) Abs Immat Gran (auto) Absolute Neuts (auto) Absolute Nucleated RBC Nucleated RBC % (auto) PT 11.8 INR 1.0 VBG pH VBG pCO2 VBG pO2 VBG HCO3 VBG O2 Saturation VBG Base Excess Anion Gap Estim Creat Clear Calc Estimated GFR Random Glucose Lactic Acid 2.0 Calcium Magnesium Total Bilirubin Direct Bilirubin AST ALT Alkaline Phosphatase Troponin I High Sens B-Natriuretic Peptide Total Protein Albumin Urine Color Urine Appearance Urine pH Ur Specific [place] Urine Protein Urine Glucose (UA) Urine Ketones Urine Blood Urine Nitrite Ur Leukocyte Esterase Urine RBC Urine WBC Ur Squamous Epith Cells Urine Bacteria Influenza Type A (PCR) NEGATIVE Influenza Type B (PCR) NEGATIVE RSV RNA Qual (PCR) POSITIVE A SARS-CoV-2 RNA (RT-PCR) NEGATIVE 12/13/21 12/13/21 12/14/21 15:30 20:35 04:38 MCV 103.8 H MCH 33.3 H MCHC 32.0 RDW 12.6 Plt Count 263 MPV 10.4 Immature Gran % (Auto) 0.6 H Neut % (Auto) 82.7 H Lymph % (Auto) 11.6 L [place] % (Auto) 4.9 Eos % (Auto) 0.0 Baso % (Auto) 0.2 Lymph # (Auto) 1.0 L [place] # (Auto) 0.4 Eos # (Auto) 0.0 Baso # (Auto) 0.0 Abs Immat Gran (auto) 0.05 H Absolute Neuts (auto) 7.4 Absolute Nucleated RBC 0.000 Nucleated RBC % (auto) 0.0 PT INR VBG pH 7.35 VBG pCO2 52 VBG pO2 35 VBG HCO3 29 H VBG O2 Saturation 50.0 VBG Base Excess 2.7 Anion Gap Estim Creat Clear Calc Estimated GFR Random Glucose Lactic Acid Calcium Magnesium Total Bilirubin Direct Bilirubin AST ALT Alkaline Phosphatase Troponin I High Sens B-Natriuretic Peptide Total Protein Albumin Urine Color YELLOW Urine Appearance CLEAR Urine pH 5.5 Ur Specific [place] 1.020 Urine Protein NEG Urine Glucose (UA) NEG Urine Ketones NEG Urine Blood 2+ H Urine Nitrite POS H Ur Leukocyte Esterase 2+ H Urine RBC 5-9 H Urine WBC 10-14 H Ur Squamous Epith Cells TRACE Urine Bacteria 1+ Influenza Type A (PCR) Influenza Type B (PCR) RSV RNA Qual (PCR) SARS-CoV-2 RNA (RT-PCR) 12/14/21 04:38 MCV MCH MCHC RDW Plt Count MPV Immature Gran % (Auto) Neut % (Auto) Lymph % (Auto) [place] % (Auto) Eos % (Auto) Baso % (Auto) Lymph # (Auto) [place] # (Auto) Eos # (Auto) Baso # (Auto) Abs Immat Gran (auto) Absolute Neuts (auto) Absolute Nucleated RBC Nucleated RBC % (auto) PT INR VBG pH VBG pCO2 VBG pO2 VBG HCO3 VBG O2 Saturation VBG Base Excess Anion Gap 17 Estim Creat Clear Calc 33.6 Estimated GFR 41 Random Glucose 122 H Lactic Acid Calcium 9.1 Magnesium Total Bilirubin Direct Bilirubin AST ALT Alkaline Phosphatase Troponin I High Sens B-Natriuretic Peptide Total Protein Albumin Urine Color Urine Appearance Urine pH Ur Specific [place] Urine Protein Urine Glucose (UA) Urine Ketones Urine Blood Urine Nitrite Ur Leukocyte Esterase Urine RBC Urine WBC Ur Squamous Epith Cells Urine Bacteria Influenza Type A (PCR) Influenza Type B (PCR) RSV RNA Qual (PCR) SARS-CoV-2 RNA (RT-PCR) Assessment and Plan (1) Community acquired pneumonia: Status: Acute (2) RSV bronchitis: Status: Acute Plan 81-year-old woman admitted acute hypoxic respiratory failure secondary to RSV Acute hypoxic respiratory failure Secondary to RSV, bronchitis/acute COPD exacerbation Chest x-ray showing prominent bilateral perihilar vascular interstitial markings suggestive of interstitial pneumonitis continue supplemental oxygen, wean as tolerated Continue IV Rocephin, azithromycin d#2 Follow cultures Robitussin for cough Acute COPD exacerbation Likely exacerbated by RSV Scheduled, p.r.n. breathing treatments Will start systemic steroids Tobacco use Discussed the importance of smoking cessation Offered NRT Hypertension Continue hydrochlorothiazide Hyperlipidemia Continue statin, gemfibrozil DVT prophylaxis with Lovenox Attending Dr Proctor Full code Requires ongoing inpatient hospitalization for treatment of acute hypoxic respiratory failure secondary to RSV and clinical pneumonia requiring IV antibiotics and supplemental oxygen Quality Stroke Does the patient have a stroke diagnosis?: No VTE Prior VTE?: No VTE Risk Level:: Medical - moderate - high VTE Device Contraindication: Treatment Not Indicated VTE Drug Contraindication: N/A - Med Ordered
[2021-12-14] MEDS: Albuterol/Iprat 2.5/0.5MG 3 ML AMPUL.NEB INHALE ×3 (12:19→20:36)
[2021-12-14] MEDS: cefTRIAXone sodium 1 GM in 0.9 % Sodium Chloride 50 ML IV (13:30)
--- NOTE | 2021-12-14 15:22 | PC.NURSE ---
This nurse responded to call cool of pt, IV changed, pt not distressed with c/o mild SOB, neb treatment provided. No complaints of pain, call cool in hand.
[2021-12-14] MEDS: Acetaminophen 325 MG TABLET 650 MG PO (15:56)
[2021-12-14] MEDS: Azithromycin 500 MG in 0.9 % Sodium Chloride 250 ML 125 MG IV (15:57)
[2021-12-14] MEDS: methylPREDNISolone Sod Succ 40 MG/ML VIAL IVPUSH (15:57)
[2021-12-14] MEDS: Enoxaparin Sodium 40 MG/0.4 ML SYRINGE SUBCUT (18:10)
--- NOTE | 2021-12-14 19:24 | PC.NURSE ---
Addendum entered by Amina Singh 12/15/21 06:49: Report given to FERNANDA Acuña Addendum entered by Amina Singh 12/14/21 19:37: pt is alert and oriented. resting in bed. on continuos cardiac monitoring. denies any chest pain Original Note: report received from FERNANDA Newton
[2021-12-14] MEDS: Pravastatin Sodium 20 MG TABLET PO (21:06)
[2021-12-14] MEDS: hydroCHLOROthiazide 25 MG TABLET PO (21:06)
[2021-12-15] MEDS: guaiFENesin DM 100/10/5 ML 5 ML SYRUP PO ×3 (02:01→21:34)
[2021-12-15] MEDS: methylPREDNISolone Sod Succ 40 MG/ML VIAL IVPUSH ×2 (02:01→15:59)
[2021-12-15 06:00] VITALS: BP 105/49; PULSE 65; RESP 17; TEMP 36.3; O2SAT 97
[2021-12-15] MEDS: gemfibroziL 600 MG TABLET PO ×2 (09:36→19:46)
[2021-12-15] MEDS: Nicotine 7 MG PATCH.TD24 TRANSDERMA (09:36)
[2021-12-15] MEDS: 0.9 % Sodium Chloride Flush 3 ML SYRINGE IVFLUSH ×3 (09:38→23:46)
[2021-12-15 10:39] VITALS: BP 124/64; PULSE 66; RESP 18; TEMP 35.5; O2SAT 97
--- NOTE | 2021-12-15 11:44 | MHC.CM.PN ---
PT NOT YET MEDICALLY CLEARED DC PLAN TBD HOME VS HOME WITH SERVICES
--- NOTE | 2021-12-15 11:52 | P.PNIM_ITS ---
Subjective Subjective Date of Service: 12/15/21 Interval History: Seen and examined this morning Follow-up for COPD/RSV Breathing improving, still with cough, dyspnea on exertion Review of Systems Review of Systems: Yes all other systems are reviewed and are negative Constitutional Constitutional: Denies chills and Denies fever(s) Cardiovascular Cardiovascular: Denies chest pain, Denies palpitations and Reports dyspnea on exertion Respiratory Respiratory: Reports cough and Reports dyspnea on exertion Gastrointestinal Gastrointestinal: Denies abdominal pain, Denies diarrhea, Denies nausea and Denies vomiting Endocrine Endocrine: Denies palpitations Physical Exam Vital Signs: Vital Signs: Last Vital Signs Temp 96 F L 12/15/21 10:39 Pulse 66 12/15/21 10:39 Resp 18 12/15/21 10:39 BP 124/64 12/15/21 10:39 Pulse Ox 97 12/15/21 10:39 O2 Del Method 12/15/21 10:39 O2 Flow Rate 2 12/15/21 10:39 Oxygen Flow Rate 3 12/14/21 06:29 BMI result Body Mass Index 22.2 Const: General: comfortable, alert and awake Nutritional Appearance: average body habitus Orientation/consciousness: patient oriented x3 Resp: Other: Scattered expiratory wheeze Effort & Inspection: normal respiratory effort and able to speak in complete sentences Auscultation: wheezes Cardio: Rate: regular rate Heart sounds: S1 normal heart sound present and S2 normal heart sound present GI: Inspection: No distended Palpation (GI): Soft to palpation and nontender Neuro: General: patient oriented x3 Extrem: Other: Able to move all 4 extremities spontaneously General: Yes no pedal edema Objective Data Active Medications Acetaminophen (Acetaminophen 325 Mg Tablet) 650 mg PO Q6H PRN PRN Reason: Pain, Mild (Pain Scale 1-3) Last Admin: 12/14/21 15:56 Dose: 650 mg Documented By: GWENDOLYN Albuterol/Ipratropium (Albuterol/Iprat 2.5/0.5mg 3 Ml Ampul.Neb) 3 ml INHALE RQ4H PRN PRN Reason: Shortness of Breath/Wheezing Last Admin: 12/14/21 12:19 Dose: 3 ml Documented By: KATE Albuterol/Ipratropium (Albuterol/Iprat 2.5/0.5mg 3 Ml Ampul.Neb) 3 ml INHALE RQ6H WHILE AWAKE [facility] Last Admin: 12/15/21 08:24 Dose: Not Given Documented By: KATE Non-Admin Reason: pt unavail Enoxaparin Sodium (Enoxaparin Sodium 40 Mg/0.4 Ml Syringe) 40 mg SUBCUT Q24H [facility] Last Admin: 12/14/21 18:10 Dose: 40 mg Documented By: GWENDOLYN Gemfibrozil (Gemfibrozil 600 Mg Tablet) 600 mg PO BID [facility] Last Admin: 12/15/21 09:36 Dose: 600 mg Documented By: KACY Guaifenesin/Dextromethorphan (Guaifenesin Dm 100/10/5 Ml 5 Ml Syrup) 5 ml PO Q6H PRN PRN Reason: Cough Last Admin: 12/15/21 09:36 Dose: 5 ml Documented By: KACY Hydrochlorothiazide (Hydrochlorothiazide 25 Mg Tablet) 25 mg PO BEDTIME [facility]; Protocol Last Admin: 12/14/21 21:06 Dose: 25 mg Documented By: YUE Ceftriaxone Sodium 1 gm/ (Sodium Chloride) 50 mls @ 100 mls/hr IV Q24H [facility] Last Infusion: 12/14/21 14:11 Dose: 0 mls/hr Documented By: GWENDOLYN Azithromycin 500 mg/ Sodium (Chloride) 250 mls @ 125 mls/hr IV Q24H [facility] Last Infusion: 12/14/21 18:30 Dose: 0 mls/hr Documented By: GWENDOLYN Methylprednisolone Sodium Succinate (Methylprednisolone Sod Succ 40 Mg/Ml Vial) 40 mg IVPUSH Q12H [facility] Last Admin: 12/15/21 02:01 Dose: 40 mg Documented By: YUE Nicotine (Nicotine 7 Mg Patch.Td24) 7 mg TRANSDERMA DAILY [facility] Last Admin: 12/15/21 09:36 Dose: 7 mg Documented By: KACY Ondansetron HCl (Ondansetron Hcl 4 Mg/2 Ml Vial) 4 mg IVPUSH Q8H PRN PRN Reason: Nausea and Vomiting Pharmacy Consult (Consult Rx Perform Med Rec) 1 each MISCELLANE ONCE PRN PRN Reason: Consult order Pravastatin Sodium (Pravastatin Sodium 20 Mg Tablet) 20 mg PO BEDTIME [facility] Last Admin: 12/14/21 21:06 Dose: 20 mg Documented By: N-ANICL Sodium Chloride (0.9 % Sodium Chloride Flush 3 Ml Syringe) 3 ml IVFLUSH QSHIFT [facility] Last Admin: 12/15/21 09:38 Dose: 3 ml Documented By: KACY Labs CBC & Chem 7: 12/14/21 04:38 12/14/21 04:38 Microbiology Microbiology Results: Microbiology 12/13/21 20:35 Urine Culture - Final Urine clean catch - Urine spear top 12/13/21 15:31 Blood Culture - Preliminary Blood - Venous No growth after 24 hours. 12/13/21 15:27 Blood Culture - Preliminary Blood - Venous No growth after 24 hours. Assessment and Plan (1) Community acquired pneumonia: Status: Acute (2) RSV bronchitis: Status: Acute Plan 81-year-old woman admitted acute hypoxic respiratory failure secondary to RSV Acute hypoxic respiratory failure Secondary to RSV, bronchitis/acute COPD exacerbation Chest x-ray showing prominent bilateral perihilar vascular interstitial markings suggestive of interstitial pneumonitis continue supplemental oxygen, wean as tolerated Continue IV Rocephin, azithromycin d#3 Blood cultures negative to date Supportive care Acute COPD exacerbation Likely exacerbated by RSV Scheduled, p.r.n. breathing treatments Continue systemic steroids Tobacco use Discussed the importance of smoking cessation Offered NRT Hypertension Continue hydrochlorothiazide Hyperlipidemia Continue statin, gemfibrozil CKD3 Renal function appears at baseline EKG changes initial trop negative no chest pain repeat EKG unchanged DVT prophylaxis with Lovenox Attending Dr Proctor Full code Requires ongoing inpatient hospitalization for treatment of acute hypoxic respiratory failure secondary to RSV and clinical pneumonia requiring IV antibiotics and supplemental oxygen Quality Stroke Does the patient have a stroke diagnosis?: No VTE Prior VTE?: No VTE Risk Level:: Medical - moderate - high VTE Device Contraindication: Treatment Not Indicated VTE Drug Contraindication: N/A - Med Ordered
--- NOTE | 2021-12-15 13:16 | MHC.CM.PN ---
Pt lives alone, family involved and provide assistance. She reports she is independent/self-care at home and does not utilize any in home assistance. She denies use of any DME. Covid vaccinated x3 (Pfizer). PCP on file- Dr. Sarah Mathews HCP on file. Family will transport home IMM delivered/signed placed in chart Discharge Plan: Home vs Home with services
--- NOTE | 2021-12-15 14:29 | PC.NURSE ---
New admit from ED with PNA/RSV. Alert and oriented. Denies pain or discomfort. VSS, afebrile, no acute resp. distress noted. Skin is intact. Continue on IB ABT and solu medrol, no adverse reaction noted. Droplet precautions maintained. Family at bedside, updated of plan of care.
[2021-12-15] MEDS: Albuterol/Iprat 2.5/0.5MG 3 ML AMPUL.NEB INHALE ×2 (15:22→19:48)
[2021-12-15 15:25] VITALS: PULSE 76; RESP 16; O2SAT 95
[2021-12-15 15:35] VITALS: BP 114/57; PULSE 74; RESP 17; TEMP 36.4; O2SAT 95
[2021-12-15] MEDS: cefTRIAXone sodium 1 GM in 0.9 % Sodium Chloride 50 ML IV (16:00)
[2021-12-15] MEDS: Azithromycin 500 MG in 0.9 % Sodium Chloride 250 ML 125 MG IV (16:02)
[2021-12-15] MEDS: Enoxaparin Sodium 40 MG/0.4 ML SYRINGE SUBCUT (16:41)
[2021-12-15] MEDS: hydroCHLOROthiazide 25 MG TABLET PO (19:46)
[2021-12-15] MEDS: Pravastatin Sodium 20 MG TABLET PO (19:46)
[2021-12-15 19:49] VITALS: PULSE 82; RESP 17; O2SAT 94
[2021-12-15 20:00] VITALS: BP 127/60; PULSE 82; RESP 18; TEMP 36.4; O2SAT 94
[2021-12-16] VITALS (10 sets, daily range): BP systolic 110–138; BP diastolic 59–79; PULSE 60–84; RESP 16–18; TEMP 36.4–37; O2SAT 93–97
[2021-12-16] MEDS: methylPREDNISolone Sod Succ 40 MG/ML VIAL IVPUSH ×2 (05:07→14:36)
[2021-12-16] MEDS: Albuterol/Iprat 2.5/0.5MG 3 ML AMPUL.NEB INHALE ×3 (09:10→19:48)
[2021-12-16] MEDS: Nicotine 7 MG PATCH.TD24 TRANSDERMA (09:40)
[2021-12-16] MEDS: 0.9 % Sodium Chloride Flush 3 ML SYRINGE IVFLUSH ×3 (09:40→20:44)
[2021-12-16] MEDS: gemfibroziL 600 MG TABLET PO ×2 (09:40→20:44)
--- NOTE | 2021-12-16 10:12 | P.PNIM_ITS ---
Subjective Subjective Date of Service: 12/16/21 Interval History: Seen and examined this morning Follow-up for COPD/RSV Breathing improving, still with cough, dyspnea on exertion Physical Exam Vital Signs: Vital Signs: Last Vital Signs Temp 98.3 F 12/16/21 07:43 Pulse 64 12/16/21 09:12 Resp 18 12/16/21 09:12 BP 138/64 12/16/21 07:47 Pulse Ox 95 12/16/21 07:43 O2 Del Method 12/16/21 07:43 O2 Flow Rate 2 12/16/21 07:43 Oxygen Flow Rate 3 12/14/21 06:29 BMI result Body Mass Index 22.2 Appearing in no acute distress lung sounds exp wheezing heart regular rate rhythm, clear S1, S2 positive bowel sounds, abdomen is soft, nontender neuro patient is alert x3, no focal deficits Objective Data Active Medications Acetaminophen (Acetaminophen 325 Mg Tablet) 650 mg PO Q6H PRN PRN Reason: Pain, Mild (Pain Scale 1-3) Last Admin: 12/14/21 15:56 Dose: 650 mg Documented By: GWENDOLYN Albuterol/Ipratropium (Albuterol/Iprat 2.5/0.5mg 3 Ml Ampul.Neb) 3 ml INHALE RQ4H PRN PRN Reason: Shortness of Breath/Wheezing Last Admin: 12/15/21 15:22 Dose: 3 ml Documented By: LUIS EDUARDO Albuterol/Ipratropium (Albuterol/Iprat 2.5/0.5mg 3 Ml Ampul.Neb) 3 ml INHALE RQ6H WHILE AWAKE [facility] Last Admin: 12/16/21 09:10 Dose: 3 ml Documented By: DORA Enoxaparin Sodium (Enoxaparin Sodium 40 Mg/0.4 Ml Syringe) 40 mg SUBCUT Q24H [facility] Last Admin: 12/15/21 16:41 Dose: 40 mg Documented By: SIA Gemfibrozil (Gemfibrozil 600 Mg Tablet) 600 mg PO BID [facility] Last Admin: 12/16/21 09:40 Dose: 600 mg Documented By: KODY Guaifenesin/Dextromethorphan (Guaifenesin Dm 100/10/5 Ml 5 Ml Syrup) 5 ml PO Q6H PRN PRN Reason: Cough Last Admin: 12/15/21 21:34 Dose: 5 ml Documented By: ROYAL Hydrochlorothiazide (Hydrochlorothiazide 25 Mg Tablet) 25 mg PO BEDTIME [facility]; Protocol Last Admin: 12/15/21 19:46 Dose: 25 mg Documented By: ROYAL Ceftriaxone Sodium 1 gm/ (Sodium Chloride) 50 mls @ 100 mls/hr IV Q24H [facility] Last Infusion: 12/15/21 16:43 Dose: 0 mls/hr Documented By: SIA Azithromycin 500 mg/ Sodium (Chloride) 250 mls @ 125 mls/hr IV Q24H [facility] Last Infusion: 12/15/21 18:20 Dose: 0 mls/hr Documented By: SIA Methylprednisolone Sodium Succinate (Methylprednisolone Sod Succ 40 Mg/Ml Vial) 40 mg IVPUSH Q12H [facility] Last Admin: 12/16/21 05:07 Dose: 40 mg Documented By: ARTHUR Nicotine (Nicotine 7 Mg Patch.Td24) 7 mg TRANSDERMA DAILY [facility] Last Admin: 12/16/21 09:40 Dose: 7 mg Documented By: KODY Ondansetron HCl (Ondansetron Hcl 4 Mg/2 Ml Vial) 4 mg IVPUSH Q8H PRN PRN Reason: Nausea and Vomiting Pharmacy Consult (Consult Rx Perform Med Rec) 1 each MISCELLANE ONCE PRN PRN Reason: Consult order Pravastatin Sodium (Pravastatin Sodium 20 Mg Tablet) 20 mg PO BEDTIME [facility] Last Admin: 12/15/21 19:46 Dose: 20 mg Documented By: ROYAL Sodium Chloride (0.9 % Sodium Chloride Flush 3 Ml Syringe) 3 ml IVFLUSH QSHIFT [facility] Last Admin: 12/16/21 09:40 Dose: 3 ml Documented By: KODY Labs CBC & Chem 7: 12/14/21 04:38 12/14/21 04:38 Microbiology Microbiology Results: Microbiology 12/13/21 15:31 Blood Culture - Preliminary Blood - Venous No growth after 48 hours. 12/13/21 15:27 Blood Culture - Preliminary Blood - Venous No growth after 48 hours. 12/13/21 20:35 Urine Culture - Final Urine clean catch - Urine spear top Assessment and Plan (1) Community acquired pneumonia: Status: Acute (2) RSV bronchitis: Status: Acute Plan 81-year-old woman admitted acute hypoxic respiratory failure secondary to RSV Acute hypoxic respiratory failure Secondary to RSV, bronchitis/acute COPD exacerbation Chest x-ray showing prominent bilateral perihilar vascular interstitial markings suggestive of interstitial pneumonitis continue supplemental oxygen, wean as tolerated Continue IV Rocephin, azithromycin Blood cultures negative to date Supportive care Acute COPD exacerbation Likely exacerbated by RSV Scheduled, p.r.n. breathing treatments Continue systemic steroids Tobacco use Discussed the importance of smoking cessation Offered NRT Hypertension Continue hydrochlorothiazide Hyperlipidemia Continue statin, gemfibrozil CKD3 Renal function appears at baseline EKG changes initial trop negative no chest pain repeat EKG unchanged DVT prophylaxis with Lovenox Attending Dr. Conley Full code Requires ongoing inpatient hospitalization for treatment of acute hypoxic respiratory failure secondary to RSV and clinical pneumonia requiring IV antibiotics and supplemental oxygen Quality Stroke Does the patient have a stroke diagnosis?: No VTE Prior VTE?: No VTE Risk Level:: Medical - moderate - high VTE Device Contraindication: Treatment Not Indicated VTE Drug Contraindication: N/A - Med Ordered
[2021-12-16] MEDS: cefTRIAXone sodium 1 GM in 0.9 % Sodium Chloride 50 ML IV (14:36)
[2021-12-16] MEDS: Azithromycin 500 MG in 0.9 % Sodium Chloride 250 ML 125 MG IV (15:23)
[2021-12-16] MEDS: Enoxaparin Sodium 40 MG/0.4 ML SYRINGE SUBCUT (17:29)
[2021-12-16] MEDS: Pravastatin Sodium 20 MG TABLET PO (20:43)
[2021-12-16] MEDS: hydroCHLOROthiazide 25 MG TABLET PO (20:43)
[2021-12-16] MEDS: Acetaminophen 325 MG TABLET 650 MG PO (20:50)
[2021-12-16] MEDS: guaiFENesin DM 100/10/5 ML 5 ML SYRUP PO (23:19)
[2021-12-17] VITALS (9 sets, daily range): BP systolic 94–135; BP diastolic 48–68; PULSE 66–82; RESP 14–20; TEMP 35.9–36.8; O2SAT 90–96
[2021-12-17] MEDS: methylPREDNISolone Sod Succ 40 MG/ML VIAL IVPUSH ×2 (03:26→14:39)
[2021-12-17] MEDS: Albuterol/Iprat 2.5/0.5MG 3 ML AMPUL.NEB INHALE ×3 (07:42→20:27)
[2021-12-17] MEDS: Nicotine 7 MG PATCH.TD24 TRANSDERMA (07:57)
[2021-12-17] MEDS: gemfibroziL 600 MG TABLET PO ×2 (07:57→20:20)
[2021-12-17] MEDS: 0.9 % Sodium Chloride Flush 3 ML SYRINGE IVFLUSH ×3 (08:00→20:20)
--- NOTE | 2021-12-17 10:07 | P.PNIM_ITS ---
Subjective Subjective Date of Service: 12/17/21 Interval History: Seen and examined this morning Follow-up for COPD/RSV Breathing improving, still with cough, dyspnea on exertion Physical Exam Vital Signs: Vital Signs: Last Vital Signs Temp 98.3 F 12/17/21 08:06 Pulse 71 12/17/21 08:06 Resp 16 12/17/21 08:06 BP 127/60 12/17/21 08:06 Pulse Ox 95 12/17/21 08:06 O2 Del Method 12/17/21 08:06 O2 Flow Rate 2 12/17/21 03:53 Oxygen Flow Rate 3 12/14/21 06:29 BMI result Body Mass Index 22.2 Appearing in no acute distress lung sounds exp wheezing heart regular rate rhythm, clear S1, S2 positive bowel sounds, abdomen is soft, nontender neuro patient is alert x3, no focal deficits Objective Data Active Medications Acetaminophen (Acetaminophen 325 Mg Tablet) 650 mg PO Q6H PRN PRN Reason: Pain, Mild (Pain Scale 1-3) Last Admin: 12/16/21 20:50 Dose: 650 mg Documented By: TIMO Albuterol/Ipratropium (Albuterol/Iprat 2.5/0.5mg 3 Ml Ampul.Neb) 3 ml INHALE RQ4H PRN PRN Reason: Shortness of Breath/Wheezing Last Admin: 12/15/21 15:22 Dose: 3 ml Documented By: LUIS EDUARDO Albuterol/Ipratropium (Albuterol/Iprat 2.5/0.5mg 3 Ml Ampul.Neb) 3 ml INHALE RQ6H WHILE AWAKE [facility] Last Admin: 12/17/21 07:42 Dose: 3 ml Documented By: DORA Enoxaparin Sodium (Enoxaparin Sodium 40 Mg/0.4 Ml Syringe) 40 mg SUBCUT Q24H [facility] Last Admin: 12/16/21 17:29 Dose: 40 mg Documented By: KODY Gemfibrozil (Gemfibrozil 600 Mg Tablet) 600 mg PO BID [facility] Last Admin: 12/17/21 07:57 Dose: 600 mg Documented By: KODY Guaifenesin/Dextromethorphan (Guaifenesin Dm 100/10/5 Ml 5 Ml Syrup) 5 ml PO Q6H PRN PRN Reason: Cough Last Admin: 12/16/21 23:19 Dose: 5 ml Documented By: TIMO Hydrochlorothiazide (Hydrochlorothiazide 25 Mg Tablet) 25 mg PO BEDTIME [facility]; Protocol Last Admin: 12/16/21 20:43 Dose: 25 mg Documented By: TIMO Ceftriaxone Sodium 1 gm/ (Sodium Chloride) 50 mls @ 100 mls/hr IV Q24H [facility] Last Infusion: 12/16/21 15:25 Dose: 0 mls/hr Documented By: KODY Azithromycin 500 mg/ Sodium (Chloride) 250 mls @ 125 mls/hr IV Q24H [facility] Last Infusion: 12/16/21 17:31 Dose: 0 mls/hr Documented By: KODY Methylprednisolone Sodium Succinate (Methylprednisolone Sod Succ 40 Mg/Ml Vial) 40 mg IVPUSH Q12H [facility] Last Admin: 12/17/21 03:26 Dose: 40 mg Documented By: TIMO Nicotine (Nicotine 7 Mg Patch.Td24) 7 mg TRANSDERMA DAILY [facility] Last Admin: 12/17/21 07:57 Dose: 7 mg Documented By: KODY Ondansetron HCl (Ondansetron Hcl 4 Mg/2 Ml Vial) 4 mg IVPUSH Q8H PRN PRN Reason: Nausea and Vomiting Pharmacy Consult (Consult Rx Perform Med Rec) 1 each MISCELLANE ONCE PRN PRN Reason: Consult order Pravastatin Sodium (Pravastatin Sodium 20 Mg Tablet) 20 mg PO BEDTIME [facility] Last Admin: 12/16/21 20:43 Dose: 20 mg Documented By: TIMO Sodium Chloride (0.9 % Sodium Chloride Flush 3 Ml Syringe) 3 ml IVFLUSH QSHIFT [facility] Last Admin: 12/17/21 08:00 Dose: 3 ml Documented By: KODY Labs CBC & Chem 7: 12/14/21 04:38 12/14/21 04:38 Assessment and Plan (1) Community acquired pneumonia: Status: Acute (2) RSV bronchitis: Status: Acute Plan 81-year-old woman admitted acute hypoxic respiratory failure secondary to RSV Acute hypoxic respiratory failure Secondary to RSV, bronchitis/acute COPD exacerbation Chest x-ray showing prominent bilateral perihilar vascular interstitial markings suggestive of interstitial pneumonitis continue supplemental oxygen, wean as tolerated Continue IV Rocephin, azithromycin Blood cultures negative to date Supportive care Acute COPD exacerbation Likely exacerbated by RSV Scheduled, p.r.n. breathing treatments change systemic steroids to oral prednisone 40 mg Tobacco use Discussed the importance of smoking cessation Offered NRT Hypertension Continue hydrochlorothiazide Hyperlipidemia Continue statin, gemfibrozil CKD3 Renal function appears at baseline EKG changes initial trop negative no chest pain repeat EKG unchanged DVT prophylaxis with Lovenox Attending Dr. Conley Full code Requires ongoing inpatient hospitalization for treatment of acute hypoxic r espiratory failure secondary to RSV and clinical pneumonia requiring IV antibiotics and supplemental oxygen Quality Stroke Does the patient have a stroke diagnosis?: No VTE Prior VTE?: No VTE Risk Level:: Medical - moderate - high VTE Device Contraindication: Treatment Not Indicated VTE Drug Contraindication: N/A - Med Ordered
[2021-12-17] MEDS: guaiFENesin LA 600 MG TAB.ER.12H PO ×2 (10:34→20:20)
[2021-12-17] MEDS: cefTRIAXone sodium 1 GM in 0.9 % Sodium Chloride 50 ML IV (14:39)
[2021-12-17] MEDS: Azithromycin 500 MG in 0.9 % Sodium Chloride 250 ML 125 MG IV (15:16)
[2021-12-17] MEDS: Enoxaparin Sodium 40 MG/0.4 ML SYRINGE SUBCUT (17:20)
[2021-12-17] MEDS: Pravastatin Sodium 20 MG TABLET PO (20:20)
[2021-12-17] MEDS: hydroCHLOROthiazide 25 MG TABLET PO (20:20)
[2021-12-17] MEDS: guaiFENesin DM 100/10/5 ML 5 ML SYRUP PO (23:10)
[2021-12-18] VITALS: BP 123/62; PULSE 74; RESP 18; TEMP 36.8; O2SAT 96
[2021-12-18 03:39] VITALS: BP 124/62; PULSE 70; RESP 17; TEMP 36.6; O2SAT 94
[2021-12-18 07:35] VITALS: BP 140/72; PULSE 76; RESP 19; TEMP 36.8; O2SAT 93
[2021-12-18] MEDS: Albuterol/Iprat 2.5/0.5MG 3 ML AMPUL.NEB INHALE (08:02)
[2021-12-18 08:04] VITALS: PULSE 72; RESP 18; O2SAT 90
[2021-12-18] MEDS: guaiFENesin DM 100/10/5 ML 5 ML SYRUP PO (08:44)
[2021-12-18] MEDS: Nicotine 7 MG PATCH.TD24 TRANSDERMA (08:44)
[2021-12-18] MEDS: predniSONE 20 MG TABLET 40 MG PO (08:45)
[2021-12-18] MEDS: guaiFENesin LA 600 MG TAB.ER.12H PO (08:46)
[2021-12-18] MEDS: gemfibroziL 600 MG TABLET PO (08:46)
[2021-12-18] MEDS: 0.9 % Sodium Chloride Flush 3 ML SYRINGE IVFLUSH (08:46)
[2021-12-18 09:42] VITALS: PULSE 102; PULSE 106; PULSE 115; PULSE 94; O2SAT 84; O2SAT 87; O2SAT 90; O2SAT 91
[2021-12-18 11:29] VITALS: BP 146/66; PULSE 70; RESP 18; TEMP 36.4; O2SAT 91
--- NOTE | 2021-12-18 13:41 | MHC.CM.PN ---
PT MEDICALLY CLEARED FOR D/C HOME W/NEW [facility] FOR NEW HOME O2 W/EXERTION, PER RESPIRATORY PT WILL NEED [facility], FAMILY FOR TRANSPORT.
--- NOTE | 2021-12-18 16:42 | W.MHC.F2F ---
Service Date Service Date: 12/18/21 Encounter Date of encounter: 12/18/21 Reasons for Services Signs and symptoms assessed: New to oxygen Reason for nursing home: CV/CP assess and/or care and teach disease management Homebound: Leaving the home is medically contraindicated at this time without the asist of a device and/or another person due th the listed conditions above and below. Reason homebound: other ( shortness of breath with ambulation) Certification: Based on the above findings, I certify that this patient is confined to the home and needs intermittent nursing home care, physical therapy and/or speech therapy, or continues to need occupational therapy. The patient is under my care, and I have initiated the establishment of the plan of care. The patient will be followed by a physician who will periodically review the plan of care.
--- NOTE | 2021-12-18 17:00 | P.DS_ITS ---
DS: Providers Provider Date of Service: 12/18/21 Date of admission: 12/13/21 16:38 Primary care physician: Sarah Mathews MD Attending physician on discharge: Pete Elaine Discharging clinician: Xin Keene DS: Diagnosis Discharge Diagnosis (1) Community acquired pneumonia: Status: Acute (2) RSV bronchitis: Status: Acute DS: Summary Hospital Course Hospital Course: 81-year-old woman presented to the ER with complaints of worsening shortness of breath over the last several days.? She reports a family member was recently diagnosed with RSV.? She reported fever last night.? She denied chest pain, nausea, vomiting, diarrhea, history of asthma or COPD.? She continues to smoke about 5-6 cigarettes a day.? She reports her symptoms started with allergy type symptoms initially.? Chest x-ray shows some atelectasis, white blood cell count 11.8, initial oxygen saturation of 83% on room air.? In the ER, she was given albuterol, Solu-Medrol, Rocephin and azithromycin.? She will be admitted for further management and treatment of acute hypoxic respiratory failure secondary to RSV. Acute hypoxic respiratory failure Secondary to RSV, bronchitis/acute COPD exacerbation Chest x-ray showing prominent bilateral perihilar vascular interstitial markings suggestive of interstitial pneumonitis continue supplemental oxygen, wean as tolerated completed IV Rocephin, azithromycin Blood cultures negative to date Home oxygen eval rec 2 LNC with ambulation Acute COPD exacerbation Likely exacerbated by RSV Scheduled, p.r.n. breathing treatments change systemic steroids to oral prednisone 40 mg taper Tobacco use Discussed the importance of smoking cessation Offered NRT Hypertension Continue hydrochlorothiazide Hyperlipidemia Continue statin, gemfibrozil CKD3 Renal function appears at baseline EKG changes initial trop negative no chest pain repeat EKG unchanged Time Spent with Patient Time attestation: Total time spent providing and/or coordinating discharge services: Discharge coordination time: Greater than 30 minutes Quality: Safe Use of Opioids Does Pt have an Active Cancer Diagnosis on the Problem List?: No Quality: Stroke Does the patient have a stroke diagnosis?: No Physical Exam Vital Signs: Vital Signs: Last Vital Signs Temp 97.5 F 12/18/21 11:29 Pulse 70 12/18/21 11:29 Resp 18 12/18/21 11:29 BP 146/66 H 12/18/21 11:29 Pulse Ox 91 L 12/18/21 11:29 O2 Del Method 12/18/21 11:29 O2 Flow Rate 2 12/18/21 03:39 Oxygen Flow Rate 3 12/14/21 06:29 BMI result Body Mass Index 22.2 Appearing in no acute distress head is normocephalic atraumatic eyes pupils are PERRLA sclera is anicteric mouth throat mucous membranes are intact and moist neck is supple no lymphadenopathy, no JVD noted lung sounds mild wheeze heart regular rate rhythm, clear S1, S2 positive bowel sounds, abdomen is soft, nontender neuro patient is alert x3, no focal deficits DS: Data Data Completed and Pending Labs on day of discharge: Preliminary micro results at discharge 12/13/21 15:31 Blood Culture - Preliminary Blood - Venous No growth after 48 hours. 12/13/21 15:27 Blood Culture - Preliminary Blood - Venous No growth after 48 hours. Discharge Plan Discharge Anticipated Discharge Date/Time: 12/18/21 12:29 Patient Disposition: Home Health Service Discharge Diagnosis: Acute hypoxic respiratory failure Acute COPD exacerbation RSV Referrals: Juan BENITES [Outside] - 1 Day (GROUP HOME FOR NEW HOME O2, A NURSE WILL CALL TO SET UP FIRST VISIT) Sarah Mathews MD [Primary Care Provider] - 1 Week Hernando Keene MD [Physician] - 1 Week (Follow up for acute respiratory failure now on home oxygen ) Discharge Medications: New prednisone 10 mg tablet See Taper PO DAILY Qty: 30 0RF Taper: Prednisone 40 mg daily for 3 Days and 0 Hour 30 mg daily for 3 Days and 0 Hour 20 mg daily for 3 Days and 0 Hour 10 mg daily for 3 Days and 0 Hour nicotine 7 mg/24 hr Patch 24 Hour 7 mg transdermal DAILY Qty: 14 0RF dextromethorphan-guaifenesin 10-100 mg/5 mL Syrup 5 ml PO Q6H PRN (Reason: Cough) Qty: 237 0RF Continued gemfibrozil 600 mg Tablet 600 mg PO BID hydrochlorothiazide 25 mg Tablet 25 mg PO BEDTIME pravastatin 20 mg Tablet 20 mg PO BEDTIME Discharge Orders: Discharge Order (Routine); Ordered 12/18/21 Ordered By: Xin Keene Diet: advance to usual diet Activity on Discharge: As tolerated Stand Alone Forms: Patient Portal Discharge page Activity Restrictions/Additional Instructions: * No smoking. A patient on oxygen should never smoke. Smoking while on oxygen is a 100% danger to the patient and anyone nearby. * No e-cigarettes/vaporizing with medical oxygen.?These have a ?spark? within and can ignite. * Always keep oxygen cylinders at least five feet from gas stoves, candles, electrical devices or other heat sources. * Do not use oil, grease, or petroleum-based lotions or creams near the oxygen equipment. These materials are highly flammable and will easily burn when near oxygen. * Do not use electric razors, candles, sparking toys or other potential ignition sources while using oxygen. * Always secure your home oxygen tank in a fixed position when at home, or in a safe position when using portable oxygen in public. * Draping a blanket over an oxygen concentrator or hiding it in a confined space like a closet allows for a dangerous buildup of pure oxygen. * Oxygen saturates hair, bedding, clothing and other nearby materials. This makes it extremely easy for a fire to start and spread. * Family members, home visitors and caretakers must also follow every home oxygen safety tip. Care Plan Goals: resolution of symptoms Health Concerns: acute hypoxic respiratory failure secondary to RSV and pneumonia Plan of Treatment: Follow-up with helminthology teacher for further workup and management of lung disease You have been placed on oxygen, for use mainly with ambulation because your saturation goes down You may get an oxygen saturation monitor to monitor at home Assessment: see discharge summary Discharge Date/Time: 12/18/21 14:32
[2021-12-20 06:02] LABS: Legionella Ag Urine Not Detected (Not Detected)
== END 2021-12-18 14:32 | disposition home health service (06) | DRG 194 ==
LOC: HO.ED 15:55 → HO.EDOVER 16:46 → HO.S3 12-15 06:44
PROVIDERS: Admitting Provider Nurse Practitioner Acute Care; Emergency Provider Emergency Medicine; PCP Student in an Organized Health Care Education/Training Program; Responsible Provider Nurse Practitioner Acute Care; Visit Provider Nurse Practitioner Acute Care
DX: J12.1 Respiratory syncytial virus pneumonia (principal); J44.0 Chronic obstructive pulmonary disease with (acute) lower respiratory infection; J44.1 Chronic obstructive pulmonary disease with (acute) exacerbation; N13.0 Hydronephrosis with ureteropelvic junction obstruction; J20.5 Acute bronchitis due to respiratory syncytial virus; I12.9 Hypertensive chronic kidney disease with stage 1 through stage 4 chronic kidney disease, or unspecified chronic kidney disease; E78.5 Hyperlipidemia, unspecified; F17.210 Nicotine dependence, cigarettes, uncomplicated; Z20.822 Contact with and (suspected) exposure to COVID-19; Z71.6 Tobacco abuse counseling; Z87.01 Personal history of pneumonia (recurrent); Z79.899 Other long term (current) drug therapy
CPT/HCPCS: 0241U; 36415; 71045; 80048; 80076; 81001; 82803; 83605; 83735; 83880; 84484; 85025; 85610; 87040; 87086; 87449; 93005; 94640; 96365; 96366; 96367; 96375; 99285; J0456; J0696; J1650; J2920; J2930

== ENCOUNTER → 2022-02-06 14:39 | Outpatient (BNVA) | payer MEDICARE, OTHER, SELFPAY | PROVIDERS: PCP Student in an Organized Health Care Education/Training Program; Visit Provider Internal Medicine | DX: J44.0 Chronic obstructive pulmonary disease with (acute) lower respiratory infection (principal); J20.5 Acute bronchitis due to respiratory syncytial virus; F17.210 Nicotine dependence, cigarettes, uncomplicated | CPT/HCPCS: 94010; 99212 ==

== ENCOUNTER → 2022-06-06 14:57 | Outpatient (BNVA) | payer MEDICARE, OTHER, SELFPAY | PROVIDERS: PCP Student in an Organized Health Care Education/Training Program; Visit Provider Internal Medicine | DX: J44.9 Chronic obstructive pulmonary disease, unspecified (principal); F17.210 Nicotine dependence, cigarettes, uncomplicated | CPT/HCPCS: 99212 ==

== ENCOUNTER 2022-12-17 10:15 | Outpatient (REF) | payer MEDICARE, OTHER, SELFPAY ==
--- NOTE | ~2022-12-17 | XR_ITS ---
EXAMINATION: XR CHEST CLINICAL INFORMATION: Nicotine dependence. COMPARISON: Chest radiograph dated 12/13/2021. TECHNIQUE: Frontal and lateral views of the chest were obtained. FINDINGS: The heart, great vessels, pulmonary vasculature and mediastinum are normal. Within the right upper lobe, a 5.2 x 4.2 cm mass is now appreciated. There is no congestive heart failure. No pleural effusion or pneumothorax is seen. There is fullness of the right paratracheal stripe and the right hilum. There is no acute osseous abnormality. There is degenerative change of the right shoulder. XR/XR chest 2V IMPRESSION: A 5.2 cm right upper lobe mass is seen, highly suspicious for neoplasm. Right paratracheal stripe and hilar fullness suggest possible lymphadenopathy. Recommend CT evaluation. A preliminary report was provided by the [facility] on 01/04/2023.
== END 2022-12-17 10:16 | disposition home or self-care (01) ==
LOC: HO.XRAY 10:15
PROVIDERS: PCP Student in an Organized Health Care Education/Training Program; Visit Provider Internal Medicine
DX: J44.9 Chronic obstructive pulmonary disease, unspecified (principal); J20.5 Acute bronchitis due to respiratory syncytial virus; F17.200 Nicotine dependence, unspecified, uncomplicated
CPT/HCPCS: 71046; 99212

== ENCOUNTER 2023-01-05 08:22 | Outpatient (REF) | payer MEDICARE, SELFPAY ==
[2023-01-05 09:17] LABS: Anion Gap 16 (12-20); Blood Urea Nitrogen 24 mg/dL (9-16); Calcium 9.9 mg/dL (8.4-10.2); Carbon Dioxide 30 mmol/L (22-29); Chloride 101 mmol/L (96-108); Estimated Glomerular Filt Rate 41; Glucose Random 105 mg/dL (60-115); Potassium 3.5 mmol/L (3.3-5.1); Sodium 143 mmol/L (135-145)
== END 2023-01-05 08:23 | disposition home or self-care (01) ==
LOC: HO.LAB 08:22
PROVIDERS: PCP Student in an Organized Health Care Education/Training Program; Visit Provider Hospitalist
DX: R59.0 Localized enlarged lymph nodes (principal); R91.8 Other nonspecific abnormal finding of lung field
CPT/HCPCS: 36415; 80048

== ENCOUNTER 2023-01-07 13:10 | Outpatient (REF) | payer MEDICARE, OTHER, SELFPAY ==
--- NOTE | ~2023-01-07 | CT_ITS ---
EXAMINATION: CT CHEST WITH CONTRAST CLINICAL INFORMATION: Nonspecific abnormal finding of lung field COMPARISON: Previous chest x-rays from November 2021 and 2022 TECHNIQUE: Multidetector volumetric CT imaging of the chest was obtained after the administration of 65 mL of Omnipaque 350 intravenous contrast without immediate adverse reactions. Axial MIP volume rendering provided. Sagittal and coronal reformatted images were obtained. This CT examination was performed using dose optimization techniques as appropriate, variously including the following: *Automated exposure control *Adjustment of mA and/or kV according to patient size (this includes techniques or standardized protocols for targeted exams where dose is matched to indication/reason for exam; i.e. extremities or head) *Use of iterative reconstruction technique DLP: 111 mGy-cm FINDINGS: ENVIRONMENTAL PROTECTION FORESTER: Right upper lobe mass LUNGS: Spiculated right upper lobe mass. This measures 3 x 4 cm in AP and transverse dimension. This extends to the lateral pleural surface and there is reactive pleural thickening. This is slightly heterogeneous in attenuation questionable for areas of cystic change or necrosis. 3 mm adjacent satellite right upper lobe nodule axial image 81 and 83 series 7. 5 mm left upper lobe nodule axial image 67 series 7. 3 mm peripheral or subpleural right lower lobe nodule axial image 176 series 7. Scarring or subsegmental atelectasis in the medial right lower lobe adjacent to vertebral body bony osteophyte. Mild emphysema. MEDIASTINUM: Small spinal and bilateral hilar lymph nodes. No enlarged lymph nodes. Normal heart size. No pericardial effusion. Normal caliber thoracic aorta. Severe coronary artery calcification.. PLEURA: There is no pleural effusion. No pleural mass or thickening. AXILLA: No lymphadenopathy. 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 Left renal cyst. Diverticulosis of the colon. 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 CT/CT chest w IV con IMPRESSION: 3 x 4 cm right upper lobe mass suspicious for neoplasm. PET/CT scan or tissue sampling recommended. Emphysema. Small pulmonary nodules. Severe coronary artery calcification. 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 Dedicated abdominal aorta ultrasound recommended. 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 Fleischner guidelines were followed.
[2023-01-07] MEDS: iohexoL 350 MG/ML 100 ML INFUS..BTL 65 ML IV (13:57)
== END 2023-01-07 13:11 | disposition home or self-care (01) ==
LOC: HO.CT 13:10
PROVIDERS: PCP Student in an Organized Health Care Education/Training Program; Visit Provider Hospitalist
DX: R91.8 Other nonspecific abnormal finding of lung field (principal); R59.0 Localized enlarged lymph nodes
CPT/HCPCS: 71260; Q9967

== ENCOUNTER 2023-01-10 09:39 | Outpatient (AMB) | payer MEDICARE, MEDICAID, SELFPAY ==
[2023-01-10 10:14] VITALS: BP 112/60; PULSE 71; O2SAT 91; BMI 20.5
--- NOTE | 2023-01-10 10:14 | MHC.OFFVIS ---
Intake Vital Signs 01/10/23 10:14 Height 5 ft 6 in Weight 127 lb BMI 20.5 BP 112/60 Blood Pressure Location Lt brachial Position Standing Pulse 71 Pulse Source Pulse Oximeter Pulse Oximetry (%) 91 L Oxygen Delivery Method Room Air Intake Visit Reasons: lung mass Intake Note: pt is here for follow up of ct scan, only just little coughing,it does sound harsh at times, she is with her granddaughter Gwendolyn. Cycle Touring Guide Required: No Allergies No Known Allergies [No Known Allergies*] Allergy (Verified 01/10/23 10:51) Medication List - Last Reconciled 01/10/23 by Janet Soliz MD albuterol sulfate 90 mcg/actuation (ProAir HFA) 2 puffs inhalation Q6H PRN aspirin 81 mg PO DAILY gemfibrozil 600 mg PO BID hydrochlorothiazide 25 mg PO BEDTIME pravastatin 20 mg PO BEDTIME Do you need a note to return to daycare/school/sports/work: No HPI lung mass HPI Details THIS 82 YEARS OLD VERY PLEASANT FEMALE, COMES TO DISCUSS THE FINDINGS OF HER CT SCAN OF THE CHEST. SHE IS A LONG-TIME SMOKER, HAS BEEN FULLY AWARE OF THE POSSIBLE RISKS FROM SMOKING. SYMPTOM MEDICALLY THE ONLY SYMPTOM SHE HAS IS MILD INTERMITTENT COUGH, NO WHEEZING, MILD SHORTNESS OF BREATH ON WALKING UP HILL OR CLIMBING STAIRS. APPETITE IS FAIR BUT LATELY SHE HAS LOST A FEW LB OF WEIGHT SINCE LAST VISIT. THE CT SCAN OF THE CHEST SHOWS GROSS ABNORMALITY ESPECIALLY A LARGE MASS IN THE RIGHT UPPER LOBE. PFSH Medical History COPD (chronic obstructive pulmonary disease) Diverticulosis HTN (hypertension) Hypercholesteremia IBS (irritable bowel syndrome) Lung mass Lymphadenopathy, mediastinal Smoker Surgical History H/O colonoscopy Family History Sister Breast cancer Social History Household Members: None Housing: Apartment Do you presently have visiting nurse or other home services: No Patient Tobacco Use Status: Current everyday Tobacco user Tobacco use type: Cigarette Cigarettes Per Day: 4 Years Smoked: 45years e-Cigarette/Vaping Use: Never Used Second Hand Smoke Exposure: No service: No Current occupational status: retired Review of Systems Const All systems reviewed & are unremarkable except as noted in HPI and below Eyes Reports no additional complaints ENT Reports no additional complaints Card Denies chest pain, Denies irregular heart rhythm and Denies leg edema Resp Reports as per HPI GI Reports no additional complaints Reports no additional complaints Musc Reports no additional complaints Skin/Breast Reports system reviewed and no additional complaints, except as documented Neuro Reports no additional complaints Psych Reports no additional complaints Physical Exam Vital Signs: Last Vital Signs Pulse 71 01/10/23 10:14 BP 112/60 01/10/23 10:14 Pulse Ox 91 L 01/10/23 10:14 Oxygen Delivery Method Room Air 01/10/23 10:14 BMI result Body Mass Index 20.5 Const General: healthy appearing, comfortable, no acute distress, alert and awake Orientation/consciousness: patient oriented x3 HEENT Head: Yes normal to inspection General nose exam: No nasal polyps present and No nasal discharge present Face and sinus: Yes sinuses nontender Mouth: oropharynx normal Throat: Yes posterior oropharynx normal Eyes General: appearance normal, both eyes and all related structures Neck Neck: Yes normal visual inspection, Yes no lymphadenopathy, Yes trachea midline and Yes no JVD Thyroid: Thyroid normal Chest Chest palpation & inspection: normal inspection of the chest, normal palpation of entire chest wall and no tenderness Resp Other: Percussion note hyper-resonant. Breath sounds are slightly distant with prolonged expiratory phase. No wheezes or rhonchi . No creps. Cardio Palpation: normal PMI Rate: regular rate Rhythm: regular rhythm Heart sounds: no gallops and no murmurs Peripheral pulses: Peripheral pulses 2+ throughout GI Palpation (GI): Soft to palpation, nontender, No hepatosplenomegaly present and no masses Auscultation: normal bowel sounds Back/Spine/Pelvis Thoracic/Lumbar Spine: thoracic and lumbar spine normal to inspection Skin General skin exam: no rashes or lesions noted Neuro General: patient oriented x3 and no focal motor deficits Cranial nerves: Yes CN's II-XII intact bilaterally Extrem General: Yes normal to inspection, Yes no clubbing, cyanosis or edema and Yes no calf tenderness Psych Appearance: grossly normal and well kempt Speech and movement: Normal speech and movement present Results Reviewed Results Reviewed: CT SCAN OF CHEST : IMPRESSION: 3 x 4 cm right upper lobe mass suspicious for neoplasm. PET/CT scan or tissue sampling recommended. Emphysema. Small pulmonary nodules. Severe coronary artery calcification. 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 Dedicated abdominal aorta ultrasound recommended. ? ? Assessment & Plan Assessment & Plan (1) Smoker: Comment: SHE IS A LONG-TIME SMOKER, HAS REDUCED TO 5 CIGARETTES A DAY. AGAIN HAD A DETAILED DISCUSSION WITH HER AND ADVISED HER TO QUIT COMPLETELY, OR AT LEAST CUT DOWN MUCH POSSIBLE * PATIENT IS FULLY AWARE OF THE CONSEQUENCES OF CONTINUED SMOKING. Code(s): F17.200 - Nicotine dependence, unspecified, uncomplicated (2) COPD (chronic obstructive pulmonary disease): Comment: SHE HAS BEEN SMOKER FOR LAST 40 YEARS. TRYING TO CUT DOWN MUCH POSSIBLE. SHE UNDERSTANDs THAT GOAL IS TO QUIT COMPLETELY. SHE IS RELATIVELY ASYMPTOMATIC AT PRESENT EXCEPT FOR COUGHING JAGS . SPIROMETRY HAS SHOWN MILD TO MODERATE DEGREE OF COPD. TX : ALBUTEROL HFA 2 PUFFS Q 4-6 HOURS ONLY P.R.N. IF THERE IS A BOUT OF PERSISTENT COUGH OR WHEEZING. DOES NOT NEED ANY MAINTENANCE REGIMEN AT THIS TIME. Code(s): J44.9 - Chronic obstructive pulmonary disease, unspecified (3) Lung mass: Comment: PER CT SCAN OF THE CHEST, SHE HAS 3X4 CM SPICULATED MASS IN THE RIGHT UPPER LOBE , MOST LIKELY NEOPLASTIC UNLESS RULED RESERVE WILSON. ONE SMALL NODULE IN THE LEFT UPPER LOBE AND 1 SMALL NODULE IN RIGHT LOWER LOBE. 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 DISCUSSED THE OPTIONS INCLUDING PERCUTANEOUS NEEDLE BIOPSY WORSE IS PET SCAN. SHE PREFERS TO UNDERGO PET SCAN BEFORE ANY SURGICAL INTERVENTION. DOES A PET SCAN IS REQUESTED. Code(s): R91.8 - Other nonspecific abnormal finding of lung field Orders: Orders PET CT fusion skull to thigh Today F17.200 - Nicotine dependence, unspecified, uncomplicated, J44.9 - Chronic obstructive pulmonary disease, unspecified, R91.8 - Other nonspecific abnormal finding of lung field Coding Level of Care Code Est Pt Level 3 (94168) Diagnoses Smoker F17.200 COPD (chronic obstructive pulmonary disease) J44.9 Lung mass R91.8
== END 2023-01-10 10:55 | disposition home or self-care (01) ==
PROVIDERS: PCP Student in an Organized Health Care Education/Training Program; Visit Provider Internal Medicine
DX: F17.200 Nicotine dependence, unspecified, uncomplicated (principal); J44.9 Chronic obstructive pulmonary disease, unspecified; R91.8 Other nonspecific abnormal finding of lung field
CPT/HCPCS: 99213

== ENCOUNTER → 2023-01-10 09:39 | Outpatient (BNVA) | payer MEDICARE, SELFPAY | PROVIDERS: PCP Student in an Organized Health Care Education/Training Program; Visit Provider Internal Medicine | DX: J44.9 Chronic obstructive pulmonary disease, unspecified (principal); R91.8 Other nonspecific abnormal finding of lung field; F17.210 Nicotine dependence, cigarettes, uncomplicated | CPT/HCPCS: 99212 ==

== ENCOUNTER 2023-01-22 08:54 | Outpatient (REF) | payer MEDICARE, SELFPAY ==
--- NOTE | ~2023-01-22 | PE_ITS ---
EXAMINATION: Fluorine-18 FDG PET/CT Scan CLINICAL INDICATION: Initial treatment management. Large lung mass right upper lobe, most likely neoplastic. Patient is a high risk for percutaneous needle biopsy. PROCEDURE: 65 minutes following the intravenous administration of 16.9 mCi of fluorine 18 FDG, images from the base of the skull to the mid thighs were obtained using a combined PET/CT scanner with CT scan based attenuation correction. No oral contrast was administered. No intravenous contrast was administered. Transverse, coronal, sagittal, and volume reconstruction projections were obtained. The patient's blood glucose as determined by a finger stick, was 113 mg/dl immediately prior to injection. Total CT exam dose-length product 253.86 mGy-cm * These CT images were obtained using dose optimization techniques as appropriate, variously including the following: Automated exposure control * Adjustment of mA and/or kV according to patient size (this includes techniques or standardized protocols for targeted exams where dose is matched to indication/reason for exam; i.e. extremities or head) * Use of iterative reconstruction technique COMPARISON: No previous PET/CT scan is available for comparison. CT scan of the chest dated 01/07/2023 there is available for comparison. FINDINGS: (Slice numbers described in this report are numbered superiorly to inferiorly with slice #1 in the head) NECK AND VISUALIZED HEAD: No foci of abnormal FDG activity are noted. The distribution of FDG activity is physiological. There is no cervical lymphadenopathy. THORAX: There is intensely FDG avid right upper lobe pulmonary mass, SUVmax 20.4, slice 82/296. This mass has spiculations which abut the lateral pleura of the right upper lobe and measures approximately 4.5 x 5.4 cm in largest transverse dimensions and 3.8 cm cephalocaudad. There is an FDG avid right lower paratracheal lymph node, SUVmax 6.1, slice 90/267. There is a 0.4 cm satellite nodule lateral to the right upper lobe mass previously described, slice 84/267, and a 0.5 cm medial left upper lobe pulmonary nodule, slice 76/267, both too small to be characterized on the FDG PET images. These nodules as well as the mass in the right upper lobe are not significantly changed in appearance from the 01/07/[address] scan. No additional suspicious nodules are visualized. Additional small subcentimeter nodules visualized on the diagnostic chest CT dated 01/07/2023 are not apparent on these nondiagnostic CT images. There is no pleural or pericardial fluid, or pneumothorax. There is no additional mediastinal, supraclavicular, or axillary lymphadenopathy. ABDOMEN AND PELVIS: There is mild FDG activity present throughout the gastrointestinal tract without a suspicious focal component, probably physiological. There is diffuse diverticulosis without evidence of diverticulitis. A large posterior gastric diverticulum and a smaller posterior duodenal diverticulum adjacent to the pancreas are visualized and appear unchanged from 01/07/2023. The hollow viscera are otherwise unremarkable. A 0.5 cm dense calcification in the left lobe of the liver is noted, likely a granuloma. The liver is otherwise unremarkable. The gallbladder and spleen are unremarkable. There is a 3.3 cm hypodense left peripelvic renal cysts and this is markedly FDG photopenic. Some cortical thinning in the left kidney is present. The kidneys are otherwise unremarkable. The adrenal glands and pancreas are unremarkable. The pelvic organs are unremarkable. There is no retroperitoneal, mesenteric, pelvic or inguinal lymphadenopathy. MUSCULOSKELETAL: There are no foci of abnormal FDG activity in the osseous structures. There are degenerative changes in the spine but no suspicious sclerotic or lytic lesions are present. VASCULAR: Diffuse vascular calcifications including dense coronary calcifications are present. There is aneurysmal dilatation of the infrarenal abdominal aorta measuring 3.2 cm in largest AP dimension. PET/PET CT fusion skull to thigh IMPRESSION: 1. An intensely FDG avid right upper lobe mass is most likely malignant. 2. A right lower paratracheal lymph node is FDG avid and likely a metastasis. 3. Additional subcentimeter pulmonary nodules are present, several of these better visualized on the 01/07/[address] scan and all too small to be characterized on the FDG PET images. 4. No additional abnormalities suspicious for other metastatic or malignant lesions are noted. 5. 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 6. Diffuse vascular calcifications including dense coronary calcifications.
== END 2023-01-22 08:55 | disposition home or self-care (01) ==
LOC: HO.PET 08:54
PROVIDERS: PCP Student in an Organized Health Care Education/Training Program; Visit Provider Internal Medicine
DX: Z13.89 Encounter for screening for other disorder (principal)

== ENCOUNTER 2023-01-29 11:19 | Outpatient (AMB) | payer MEDICARE, SELFPAY ==
[2023-01-29 11:31] VITALS: BP 120/64; PULSE 78; O2SAT 94; BMI 20.3
--- NOTE | 2023-01-29 11:31 | MHC.OFFVIS ---
Intake Vital Signs 01/29/23 11:31 Height 5 ft 6 in Weight 126 lb BMI 20.3 BP 120/64 Blood Pressure Location Lt brachial Position Sitting Pulse 78 Pulse Source Pulse Oximeter Pulse Oximetry (%) 94 Oxygen Delivery Method Room Air Intake Visit Reasons: lung mass Intake Note: pt is here for follow up only an occasional cough, and here for test results. 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 History of smoking 1 pack a day for 45 years, now down to 5 cigarettes a day but she continues to smoke. She has moderately severe obstructive airway, disorder as per spirometry has albuterol HFA on hand but hardly needs to use it. She is not on any long-acting BDs. She is being worked up for a mass in the right upper lobe. She denies any recent weight loss. She has had CT scan of the chest, followed by PET scan , which confirmed FDG positive mass, confined to the right upper lobe, a right paratracheal node also positive. Initially we were cautious about needle biopsy because of pulmonary emphysema. But now that seems to be the next step. So the patient and her 2 daughters were here to discuss, and we did have a detailed discussion. Patient is agreeable to undergo the needle biopsy. [facility] Medical History COPD (chronic obstructive pulmonary disease) Diverticulosis HTN (hypertension) Hypercholesteremia IBS (irritable bowel syndrome) Lung mass Lymphadenopathy, mediastinal Smoker Surgical History H/O colonoscopy Family History Sister Breast cancer Social History Household Members: None Housing: Apartment Do you presently have visiting nurse or other home services: No Patient Tobacco Use Status: Current everyday Tobacco user Tobacco use type: Cigarette Cigarettes Per Day: 5 Years Smoked: 45years e-Cigarette/Vaping Use: Never Used Second Hand Smoke Exposure: No service: No Current occupational status: retired Review of Systems Const All systems reviewed & are unremarkable except as noted in HPI and below Eyes Reports no additional complaints ENT Reports no additional complaints Card Denies chest pain, Denies irregular heart rhythm and Denies leg edema Resp Reports as per HPI GI Reports no additional complaints Reports no additional complaints Musc Reports no additional complaints Skin/Breast Reports system reviewed and no additional complaints, except as documented Neuro Reports no additional complaints Psych Reports no additional complaints Physical Exam Vital Signs: Last Vital Signs Pulse 78 01/29/23 11:31 BP 120/64 01/29/23 11:31 Pulse Ox 94 01/29/23 11:31 Oxygen Delivery Method Room Air 01/29/23 11:31 BMI result Body Mass Index 20.3 Const General: healthy appearing, comfortable, no acute distress, alert and awake Orientation/consciousness: patient oriented x3 HEENT Head: Yes normal to inspection General nose exam: No nasal polyps present and No nasal discharge present Face and sinus: Yes sinuses nontender Mouth: oropharynx normal Throat: Yes posterior oropharynx normal Eyes General: appearance normal, both eyes and all related structures Neck Neck: Yes normal visual inspection, Yes no lymphadenopathy, Yes trachea midline and Yes no JVD Thyroid: Thyroid normal Chest Chest palpation & inspection: normal inspection of the chest, normal palpation of entire chest wall and no tenderness Resp Other: Percussion note hyper-resonant. Breath sounds are slightly distant with prolonged expiratory phase. No wheezes or rhonchi . No creps. Cardio Palpation: normal PMI Rate: regular rate Rhythm: regular rhythm Heart sounds: no gallops and no murmurs Peripheral pulses: Peripheral pulses 2+ throughout GI Palpation (GI): Soft to palpation, nontender, No hepatosplenomegaly present and no masses Auscultation: normal bowel sounds Back/Spine/Pelvis Thoracic/Lumbar Spine: thoracic and lumbar spine normal to inspection Skin General skin exam: no rashes or lesions noted Neuro General: patient oriented x3 and no focal motor deficits Cranial nerves: Yes CN's II-XII intact bilaterally Extrem General: Yes normal to inspection, Yes no clubbing, cyanosis or edema and Yes no calf tenderness Psych Appearance: grossly normal and well kempt Speech and movement: Normal speech and movement present Results Reviewed Results Reviewed: Results of CT scan, PET scan, and previous spirometry reviewed with the patient. Assessment & Plan Assessment & Plan (1) COPD (chronic obstructive pulmonary disease): Comment: SHE HAS BEEN SMOKER FOR LAST 45 YEARS. TRYING TO CUT DOWN MUCH POSSIBLE. SHE UNDERSTANDs THAT GOAL IS TO QUIT COMPLETELY. SHE IS RELATIVELY ASYMPTOMATIC AT PRESENT EXCEPT FOR COUGHING JAGS . SPIROMETRY HAS SHOWN MILD TO MODERATE DEGREE OF COPD. TX : ALBUTEROL HFA 2 PUFFS Q 4-6 HOURS ONLY P.R.N. IF THERE IS A BOUT OF PERSISTENT COUGH OR WHEEZING. DOES NOT NEED ANY MAINTENANCE REGIMEN AT THIS TIME. Code(s): J44.9 - Chronic obstructive pulmonary disease, unspecified (2) Smoker: Comment: SHE IS A LONG-TIME SMOKER, HAS REDUCED TO 5 CIGARETTES A DAY. AGAIN HAD A DETAILED DISCUSSION WITH HER AND ADVISED HER TO QUIT COMPLETELY, OR AT LEAST CUT DOWN MUCH POSSIBLE * PATIENT IS FULLY AWARE OF THE CONSEQUENCES OF CONTINUED SMOKING. Code(s): F17.200 - Nicotine dependence, unspecified, uncomplicated (3) Lung mass: Comment: PER CT SCAN OF THE CHEST, SHE HAS 3X4 CM SPICULATED MASS IN THE RIGHT UPPER LOBE , MOST LIKELY NEOPLASTIC UNLESS RULED RESERVE WILSON. ONE SMALL NODULE IN THE LEFT UPPER LOBE AND 1 SMALL NODULE IN RIGHT LOWER LOBE. PET SCAN : 1. An intensely FDG avid right upper lobe mass is most likely malignant. 2. A right lower paratracheal lymph node is FDG avid and likely a metastasis. 3. Additional subcentimeter pulmonary nodules are present, several of these better visualized on the 01/07/[address] scan and all too small to be characterized on the FDG PET images. 4. No additional abnormalities suspicious for other metastatic or malignant lesions are noted. 5. 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 6. Diffuse vascular calcifications including dense coronary calcifications. Code(s): R91.8 - Other nonspecific abnormal finding of lung field (4) Lymphadenopathy, mediastinal: Comment: Patient does have mediastinal lymphadenopathy, 1 paratracheal lymph node FDG positive . Code(s): R59.0 - Localized enlarged lymph nodes Plan Add a discussion with the patient and her daughters. Explained all the present findings. Surprisingly the patient is relatively asymptomatic. In view of the findings I think we will have the following plan: COMPLETE PULMONARY FUNCTION TEST. IS ORDERED THORACIC SURGICAL CONSULTATION , FOR SURGICAL INPUT. INTERVENTIONAL RADIOLOGY rEQ. FOR PERCUTANEOUS NEEDLE BIOPSY. PATIENT ADVISED TO QUIT SMOKING COMPLETELY, AFTER THE PERCUTANEOUS NEEDLE BIOPSY WE WILL HAVE FURTHER DISCUSSION, MOST LIKELY PATIENT WILL BE CANDIDATE FOR, CHEMO/RADIATION THERAPY. Orders: Orders PFT pulmonary function test Today F17.200 - Nicotine dependence, unspecified, uncomplicated, J44.9 - Chronic obstructive pulmonary disease, unspecified, R91.8 - Other nonspecific abnormal finding of lung field Referrals Interventional Radiology Referral R59.0 - Localized enlarged lymph nodes, R91.8 - Other nonspecific abnormal finding of lung field Thoracic Surgery Referral F17.200 - Nicotine dependence, unspecified, uncomplicated, J44.9 - Chronic obstructive pulmonary disease, unspecified, R59.0 - Localized enlarged lymph nodes, R91.8 - Other nonspecific abnormal finding of lung field Coding Level of Care Code Est Pt Level 4 (35344) Diagnoses COPD (chronic obstructive pulmonary disease) J44.9 Smoker F17.200 Lung mass R91.8 Lymphadenopathy, mediastinal R59.0
== END 2023-01-29 11:55 | disposition home or self-care (01) ==
PROVIDERS: PCP Student in an Organized Health Care Education/Training Program; Visit Provider Internal Medicine
DX: J44.9 Chronic obstructive pulmonary disease, unspecified (principal); F17.200 Nicotine dependence, unspecified, uncomplicated; R91.8 Other nonspecific abnormal finding of lung field; R59.0 Localized enlarged lymph nodes
CPT/HCPCS: 99214

== ENCOUNTER → 2023-01-29 11:19 | Outpatient (BNVA) | payer MEDICARE, SELFPAY | PROVIDERS: PCP Student in an Organized Health Care Education/Training Program; Visit Provider Internal Medicine | DX: J44.9 Chronic obstructive pulmonary disease, unspecified (principal); R91.8 Other nonspecific abnormal finding of lung field; R59.0 Localized enlarged lymph nodes; F17.210 Nicotine dependence, cigarettes, uncomplicated | CPT/HCPCS: 99212 ==

== ENCOUNTER 2023-01-30 10:08 | Outpatient (REF) | payer MEDICARE, OTHER, SELFPAY ==
--- NOTE | 2023-01-30 11:21 | PFT_ITS ---
FLOWS: 1. FEV1 57% of predicted at 1.20 L. 2. FVC 79% of predicted at 2.23 L. 3. FEV1 to FVC ratio of 0.54. 4. Positive bronchodilator response. LUNG VOLUMES: 1. Total lung capacity 91% of predicted at 4.90 L. 2. Residual volume 111% of predicted at 2.82 L. 3. Slow vital capacity 73% of predicted at 2.09 L. 4. Expiratory reserve volume 106% of predicted at 0.63 L. 5. Diffusion capacity is moderately reduced. IMPRESSION: Moderate obstructive ventilatory defect with positive bronchodilator response. Decreased diffusion capacity suggests emphysema. MD CUAUHTEMOC Cabello/MODL / [id number]
== END 2023-01-30 10:09 | disposition home or self-care (01) ==
LOC: HO.RESP 10:08
PROVIDERS: PCP Student in an Organized Health Care Education/Training Program; Visit Provider Internal Medicine
DX: J44.9 Chronic obstructive pulmonary disease, unspecified (principal); R91.8 Other nonspecific abnormal finding of lung field; F17.200 Nicotine dependence, unspecified, uncomplicated
CPT/HCPCS: 94060; 94727; 94729

== ENCOUNTER → 2023-01-30 11:21 | Outpatient (BNV) | payer MEDICARE, SELFPAY | PROVIDERS: PCP Student in an Organized Health Care Education/Training Program; Visit Provider Internal Medicine Pulmonary Disease | DX: J44.9 Chronic obstructive pulmonary disease, unspecified (principal); R91.8 Other nonspecific abnormal finding of lung field | CPT/HCPCS: 94060; 94727; 94729 ==

== ENCOUNTER 2023-02-07 09:33 | Outpatient (AMB) | payer MEDICARE, MEDICAID, SELFPAY ==
--- NOTE | 2023-02-07 09:39 | A.OFFVIS_ITS ---
Intake Vital Signs 02/07/23 09:43 Height 5 ft 6 in Weight 125 lb BMI 20.2 BP 118/70 Blood Pressure Location Lt brachial Position Sitting Pulse 80 Intake Visit Reasons: Other nonspecific abnormal finding of lung field Intake Note: Patient referred by Dr. Soliz for Rt lobe pulomonary mass. PET Scan 01-22-23. Patient c/o on and off cough. 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 She is currently undergoing workup by pulmonology for this. Patient has a very significant smoking history of almost 1 pack per day for over 40 years. She denies any significant respiratory symptoms although she does have COPD treated with inhalers. She had not had hemoptysis, cough, dyspnea, or chest pain. Chart was reviewed patient evaluated. Patient is scheduled tentatively for February 27 CT-guided lung biopsy. She has also had pulmonary function tests which will be reviewed. PET-CT confirms the right upper lobe lung lesion. Question of distal right para tracheal adenopathy. PFSH Medical History COPD (chronic obstructive pulmonary disease) Diverticulosis HTN (hypertension) Hypercholesteremia IBS (irritable bowel syndrome) Smoker Surgical History (Updated 02/07/23 @ 10:06 by Nicholas Sandoval MD) H/O colonoscopy History of lumpectomy Lung mass Lymphadenopathy, mediastinal Family History Sister Breast cancer Social History Household Members: None Housing: Apartment Do you presently have visiting nurse or other home services: No Patient Tobacco Use Status: Current everyday Tobacco user Tobacco use type: Cigarette Cigarettes Per Day: 5 Years Smoked: 45years e-Cigarette/Vaping Use: Never Used Second Hand Smoke Exposure: No service: No Current occupational status: retired Physical Exam Vital Signs: Last Vital Signs Pulse 80 02/07/23 09:43 BP 118/70 02/07/23 09:43 BMI result Body Mass Index 20.2 Chest Other: Chest sounds bilaterally, consistent with COPD, HS 1 in 2 GI Other: Soft, benign Assessment & Plan Assessment & Plan (1) Lung mass: Comment: PER CT SCAN OF THE CHEST, SHE HAS 3X4 CM SPICULATED MASS IN THE RIGHT UPPER LOBE , MOST LIKELY NEOPLASTIC UNLESS RULED RESERVE WILSON. ONE SMALL NODULE IN THE LEFT UPPER LOBE AND 1 SMALL NODULE IN RIGHT LOWER LOBE. PET SCAN : 1. An intensely FDG avid right upper lobe mass is most likely malignant. 2. A right lower paratracheal lymph node is FDG avid and likely a metastasis. 3. Additional subcentimeter pulmonary nodules are present, several of these better visualized on the 01/07/[address] scan and all too small to be characterized on the FDG PET images. 4. No additional abnormalities suspicious for other metastatic or malignant lesions are noted. 5. 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 6. Diffuse vascular calcifications including dense coronary calcifications. Code(s): R91.8 - Other nonspecific abnormal finding of lung field (2) Lymphadenopathy, mediastinal: Comment: Patient does have mediastinal lymphadenopathy, 1 paratracheal lymph node FDG positive . Code(s): R59.0 - Localized enlarged lymph nodes Plan Current plan is see the patient after her needle biopsy and review pathology results. Making the presumption that this is a non-small cell lung cancer, patient will need to be staged with either EBUS or mediastinoscopy to rule out mediastinal lymph node involvement. Further interventions and studies will be directed by the above-mentioned procedure results. Coding Level of Care Code New Pt Level 5 (02796) Diagnoses Lung mass R91.8 Lymphadenopathy, mediastinal R59.0
[2023-02-07 09:43] VITALS: BP 118/70; PULSE 80; BMI 20.2
== END 2023-02-07 10:03 | disposition home or self-care (01) ==
PROVIDERS: PCP Student in an Organized Health Care Education/Training Program; Referring Provider Internal Medicine; Visit Provider Surgery
DX: R91.8 Other nonspecific abnormal finding of lung field (principal); R59.0 Localized enlarged lymph nodes
CPT/HCPCS: 99204

== ENCOUNTER → 2023-02-07 09:33 | Outpatient (BNVA) | payer MEDICARE, SELFPAY | PROVIDERS: PCP Student in an Organized Health Care Education/Training Program; Referring Provider Internal Medicine; Visit Provider Surgery ==

== ENCOUNTER → 2023-02-28 12:11 | Day surgery (SDC) | payer MEDICARE, SELFPAY ==
[2023-02-28 12:22] VITALS: BMI 20.2
[2023-02-28 12:30] VITALS: BMI 20.2
[2023-02-28 12:37] VITALS: BP 94/55; RESP 18; TEMP 37.1; O2SAT 96
[2023-02-28] MEDS: Lactated Ringers 1,000 ML 50 ML IVCONT (12:57)
[2023-02-28 12:58] LABS: MANUAL DIFF FLAG NO
[2023-02-28 13:03] LABS: Basophils Absolute Auto 0.1 X10*3/uL (0.0-0.2); Basophils Percent Auto 0.7 % (0-2); Eosinophils Absolute Auto 0.2 X10*3/uL (0.0-0.4); Eosinophils Percent Auto 2.2 % (0-4); Hematocrit 40.8 % (37.0-47.0); Hemoglobin 13.4 g/dl (12.0-16.0); Imm Gran Abs Auto 0.07 X10*3/uL (0.00-0.03); Imm Gran Pct Auto 0.7 % (0.0-0.4); Lymphocytes Absolute Auto 1.9 X10*3/uL (1.2-4.9); Lymphocytes Percent Auto 18.3 % (20-40); Mean Corpuscular HGB Conc 32.8 g/dl (31.0-35.0); Mean Corpuscular Hemoglobin 33.5 pg (27.0-33.0); Monocytes Absolute Auto 0.7 X10*3/uL (0.1-1.2); Monocytes Percent Auto 6.9 % (2-11); Neutrophils Absolute Auto 7.6 x10*3/uL (2.0-8.3); Neutrophils Percent Auto 71.2 % (45-73); Platelet Count 330 X10*3/uL (160-400); Red Cell Distribution Width 12.5 % (11.0-16.0); White Blood Count 10.6 X10*3/uL (4.8-10.8)
[2023-02-28 13:08] LABS: INTERNATIONAL NORM RATIO 0.9 (0.9-1.1); Prothrombin Time 11.5 SEC (11.1-13.3)
[2023-02-28 13:11] LABS: Partial Thromboplastin Time 36.5 SEC (26.0-36.4)
[2023-02-28 13:21] LABS: Anion Gap 16 (12-20); Blood Urea Nitrogen 34 mg/dL (9-16); Carbon Dioxide 23 mmol/L (22-29); Chloride 105 mmol/L (96-108); Estimated Glomerular Filt Rate 40; Potassium 3.8 mmol/L (3.3-5.1); Sodium 140 mmol/L (135-145)
--- NOTE | 2023-02-28 15:13 | PC.NURSE ---
RN Moira Townsend texted by this RN requesting ETA for next pt. complication of previous pt could take 1-2 hours or longer. Pt offered choice to wait or reschedule, chose reschedule (daughter Lamar present) Pt agreeable with plan. IV dc'd and pressure x 2 to ensure no new oozing. redressed and guided to waiting room with two daughters, will wait in waiting room to today make reschedule appt.
== END ==
PROVIDERS: Radiology Diagnostic Radiology; PCP Student in an Organized Health Care Education/Training Program; Visit Provider Radiology Diagnostic Radiology
DX: R91.8 Other nonspecific abnormal finding of lung field (principal); Z53.8 Procedure and treatment not carried out for other reasons; J44.9 Chronic obstructive pulmonary disease, unspecified; K57.30 Diverticulosis of large intestine without perforation or abscess without bleeding; I10 Essential (primary) hypertension; E78.00 Pure hypercholesterolemia, unspecified; Z79.82 Long term (current) use of aspirin; Z79.899 Other long term (current) drug therapy
CPT/HCPCS: 36415; 80051; 82565; 84520; 85025; 85610; 85730

== ENCOUNTER 2023-03-01 10:59 | Day surgery (SDC) | payer MEDICARE, OTHER, SELFPAY ==
[2023-03-01] VITALS (8 sets, daily range): BP systolic 100–129; BP diastolic 42–67; PULSE 68–81; RESP 20; TEMP 36.9; O2SAT 93–95; BMI 21.0
--- NOTE | ~2023-03-01 | XR_ITS ---
EXAMINATION: XR CHEST CLINICAL INFORMATION: Post right lung biopsy COMPARISON: Previous chest x-ray November 2022 TECHNIQUE: Frontal view of the chest was obtained. FINDINGS: No pneumothorax post right lung biopsy. Right upper lobe mass not appreciably changed. Cardiac and mediastinal contours are stable. The lungs are well-inflated. No pleural effusion. Degenerative changes of the spine. XR/XR chest 1V IMPRESSION: No pneumothorax post right upper lobe lung biopsy.
--- NOTE | ~2023-03-01 | CT_ITS ---
PROCEDURE: CT GUIDED BIOPSY, LUNG CLINICAL INFORMATION: Right upper lobe mass COMPARISON: Previous chest CT December 2022 and PET/CT January 2023 TECHNIQUE: Procedure and risks and benefits including bleeding, infection and pneumothorax were discussed with the patient and informed consent was obtained. The patient was positioned in the supine position. Axial images through the chest were performed. The right upper lateral chest was prepped and draped in the usual sterile fashion. The skin and soft tissues were anesthetized with 1% lidocaine plain. CT guidance and a coaxial system, access to the 5 cm mass in the right upper lobe obtained. 20-gauge core biopsies were obtained. A wet reading from the pathologist was nondiagnostic. The coaxial needle was repositioned more inferiorly in the mass. Additional 20-gauge biopsies were performed demonstrating atypical cells suspicious for neoplasm. Total of 12 20-gauge core biopsies performed. The patient received Versed 1.5 mg and fentanyl 50 mcg intravenously during. Sedation was provided by registered nurse under my direct supervision. Total sedation [id number] patient contact time was [address] examination was performed using dose optimization techniques as appropriate, variously including the following: *Automated exposure control *Adjustment of mA and/or kV according to patient size (this includes techniques or standardized protocols for targeted exams where dose is matched to indication/reason for exam; i.e. extremities or head) *Use of iterative reconstruction technique DLP: 99 mGy-cm FINDINGS: There is a 5 cm mass in the right upper lobe that was targeted for biopsy and there is evidence of emphysema. There are enlarged right mediastinal lymph nodes. Imaging demonstrates no evidence of pneumothorax. There is no appreciable hemorrhage. CT/CT biopsy lung RT IMPRESSION: CT-guided right upper lobe lung biopsy.
--- NOTE | 2023-03-01 13:49 | HO.RADPN ---
RADIOLOGY Narrative Narrative: RUL lung biopsy using coaxial system. Multiple 20g core biopies. No complication
[2023-03-01] MEDS: Acetaminophen 325 MG TABLET 650 MG PO (14:44)
== END 2023-03-01 16:15 | disposition home or self-care (01) ==
PROVIDERS: Radiology Diagnostic Radiology; PCP Student in an Organized Health Care Education/Training Program; Visit Provider Internal Medicine
DX: R91.8 Other nonspecific abnormal finding of lung field (principal); R59.0 Localized enlarged lymph nodes; J18.9 Pneumonia, unspecified organism; J44.9 Chronic obstructive pulmonary disease, unspecified; F17.210 Nicotine dependence, cigarettes, uncomplicated; I10 Essential (primary) hypertension; E78.00 Pure hypercholesterolemia, unspecified; Z79.82 Long term (current) use of aspirin; Z79.899 Other long term (current) drug therapy
CPT/HCPCS: 32408; 71045; 88305; 88333; 88334; 99152; 99153; J2250; J3010

== ENCOUNTER → 2023-03-01 12:02 | Outpatient (BNV) | payer MEDICARE, SELFPAY | PROVIDERS: PCP Student in an Organized Health Care Education/Training Program; Visit Provider Radiology Diagnostic Radiology | DX: R91.8 Other nonspecific abnormal finding of lung field (principal) | CPT/HCPCS: 32408 ==

== ENCOUNTER 2023-03-11 10:08 | Outpatient (AMB) | payer MEDICARE, MEDICAID, SELFPAY ==
[2023-03-11 10:13] VITALS: BP 137/64; PULSE 79
--- NOTE | 2023-03-11 10:13 | A.OFFVIS_ITS ---
Intake Vital Signs 03/11/23 10:13 Weight 129 lb 8 oz BP 137/64 Blood Pressure Location Rt brachial Position Sitting Pulse 79 Intake Visit Reasons: Follow Up after CT bx for pulmonary Intake Note: Patient here to f/u after CT bx Rt lung. Denies pain or discomfort. [employer] Tester Required: No Accompanied by: Daughter Allergies No Known Allergies [No Known Allergies*] Allergy (Verified 03/11/23 10:14) HPI HPI Comments History of Present Illness Details Patient presents with her daughter follow-up. The IR lung biopsy demonstrated no evidence of malignancy, and chronic inflammatory cells. Based on the patient's significant smoking history along with the radiographic and pets scan findings, I am still concerned that the patient has an underlying malignancy. I discussed the case duct Jassi, pulmonology and he will review with Dr. Ramires what the case and consideration should be given for bronchoscopy and EBUS. Other options include repeat CT scan with IR biopsy and just available should be needed mediastinoscopy. [facility] Medical History Smoker COPD (chronic obstructive pulmonary disease) Diverticulosis Hypercholesteremia IBS (irritable bowel syndrome) HTN (hypertension) Surgical History History of lumpectomy Lymphadenopathy, mediastinal Lung mass H/O colonoscopy Family History Sister Breast cancer Social History Household Members: None Housing: Apartment Do you presently have visiting nurse or other home services: No Patient Tobacco Use Status: Current everyday Tobacco user Tobacco use type: Cigarette Cigarettes Per Day: 4 Years Smoked: 45years e-Cigarette/Vaping Use: Never Used Second Hand Smoke Exposure: No service: No Current occupational status: retired Physical Exam Vital Signs: Last Vital Signs Pulse 79 03/11/23 10:13 BP 137/64 03/11/23 10:13 Chest Other: Status quo. Chest breath sounds bilaterally. Consistent with COPD. Assessment & Plan Assessment & Plan (1) Lung mass: Comment: PER CT SCAN OF THE CHEST, SHE HAS 3X4 CM SPICULATED MASS IN THE RIGHT UPPER LOBE , MOST LIKELY NEOPLASTIC UNLESS RULED RESERVE WILSON. ONE SMALL NODULE IN THE LEFT UPPER LOBE AND 1 SMALL NODULE IN RIGHT LOWER LOBE. PET SCAN : 1. An intensely FDG avid right upper lobe mass is most likely malignant. 2. A right lower paratracheal lymph node is FDG avid and likely a metastasis. 3. Additional subcentimeter pulmonary nodules are present, several of these better visualized on the 01/07/[address] scan and all too small to be characterized on the FDG PET images. 4. No additional abnormalities suspicious for other metastatic or malignant lesions are noted. 5. 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 6. Diffuse vascular calcifications including dense coronary calcifications. Code(s): R91.8 - Other nonspecific abnormal finding of lung field (2) Lymphadenopathy, mediastinal: Comment: Patient does have mediastinal lymphadenopathy, 1 paratracheal lymph node FDG positive . Code(s): R59.0 - Localized enlarged lymph nodes (3) COPD (chronic obstructive pulmonary disease): Comment: SHE HAS BEEN SMOKER FOR LAST 45 YEARS. TRYING TO CUT DOWN MUCH POSSIBLE. SHE UNDERSTANDs THAT GOAL IS TO QUIT COMPLETELY. SHE IS RELATIVELY ASYMPTOMATIC AT PRESENT EXCEPT FOR COUGHING JAGS . SPIROMETRY HAS SHOWN MILD TO MODERATE DEGREE OF COPD. TX : ALBUTEROL HFA 2 PUFFS Q 4-6 HOURS ONLY P.R.N. IF THERE IS A BOUT OF PERSISTENT COUGH OR WHEEZING. DOES NOT NEED ANY MAINTENANCE REGIMEN AT THIS TIME. Code(s): J44.9 - Chronic obstructive pulmonary disease, unspecified (4) Smoker: Comment: SHE IS A LONG-TIME SMOKER, HAS REDUCED TO 5 CIGARETTES A DAY. AGAIN HAD A DETAILED DISCUSSION WITH HER AND ADVISED HER TO QUIT COMPLETELY, OR AT LEAST CUT DOWN MUCH POSSIBLE * PATIENT IS FULLY AWARE OF THE CONSEQUENCES OF CONTINUED SMOKING. Code(s): F17.200 - Nicotine dependence, unspecified, uncomplicated Plan Plan as noted in the HPI comments. For consideration for bronchoscopy and EBUS, per pulmonology. Further surgical intervention will be determined by the above-mentioned interventions and the results. Coding Level of Care Code Est Pt Level 5 (61217) Diagnoses Lung mass R91.8 Lymphadenopathy, mediastinal R59.0 COPD (chronic obstructive pulmonary disease) J44.9 Smoker F17.200
== END 2023-03-11 10:23 | disposition home or self-care (01) ==
PROVIDERS: PCP Student in an Organized Health Care Education/Training Program; Visit Provider Surgery
DX: R91.8 Other nonspecific abnormal finding of lung field (principal); R59.0 Localized enlarged lymph nodes; J44.9 Chronic obstructive pulmonary disease, unspecified; F17.200 Nicotine dependence, unspecified, uncomplicated
CPT/HCPCS: 99214

== ENCOUNTER → 2023-03-11 10:08 | Outpatient (BNVA) | payer MEDICARE, SELFPAY | PROVIDERS: PCP Student in an Organized Health Care Education/Training Program; Visit Provider Surgery | DX: J44.9 Chronic obstructive pulmonary disease, unspecified (principal); R59.0 Localized enlarged lymph nodes; R91.8 Other nonspecific abnormal finding of lung field; F17.210 Nicotine dependence, cigarettes, uncomplicated | CPT/HCPCS: 99212 ==

== ENCOUNTER 2023-03-18 08:54 | Day surgery (SDC) | payer MEDICARE, OTHER, SELFPAY ==
--- NOTE | 2023-03-15 10:26 | HO.ANESPROP2 ---
Documented by User: Marcela Luque NP 03/15/23 10:27 HPI - Anesthesia Eval Consult details Narrative: 82yo F for Endoscopic Bronchial Ultrasound PMFSH Active Problems Active Problems: All Active Problems (Updated 01/29/23 @ 12:03 by Janet Soliz MD) Lymphadenopathy, mediastinal (Acute) Lung mass (Acute) Smoker (Acute) COPD (chronic obstructive pulmonary disease) (Acute) Community acquired pneumonia (Acute) RSV bronchitis (Acute) Past Medical History Medical History Smoker COPD (chronic obstructive pulmonary disease) Diverticulosis Hypercholesteremia IBS (irritable bowel syndrome) HTN (hypertension) Family History Family History Sister Breast cancer Surgical History Surgical History Hx of tonsillectomy Hx of appendectomy History of lumpectomy Lymphadenopathy, mediastinal Lung mass H/O colonoscopy Social History Social History Household Members: None Housing: Apartment Do you presently have visiting nurse or other home services: No Patient Tobacco Use Status: Current everyday Tobacco user Tobacco use type: Cigarette Cigarettes Per Day: 5 Years Smoked: 45years e-Cigarette/Vaping Use: Never Used Second Hand Smoke Exposure: No Use of substances other than those prescribed or required for medical reasons: No Are you DNR?: No Advance Directives: No Advance Directives Information Provided: Yes service: No Current occupational status: retired Meds Allergies Allergy/AdvReac Type Severity Reaction Status Date / Time No Known Allergies Allergy Verified 03/18/23 09:40 [No Known Allergies*] Home Medications Medication Instructions Recorded Confirmed Last Taken Type gemfibrozil 600 mg tablet 600 mg PO BID 12/13/21 03/18/23 12/12/21 History hydrochlorothiazide 25 mg tablet 25 mg PO BEDTIME 12/13/21 03/18/23 12/12/21 History pravastatin 20 mg tablet 20 mg PO BEDTIME 12/13/21 03/18/23 12/12/21 History albuterol sulfate 90 mcg/actuation 2 puff inhalation Q6H PRN 02/06/22 03/18/23 Unknown History aerosol inhaler (ProAir HFA) shortness of breath or wheeze aspirin 81 mg tablet,delayed 81 mg PO DAILY 06/06/22 03/18/23 03/10/23 History release Exam Exam Date and Time: March 15, 2023 1026 Pertinent Lab Results Pertinent Lab Results: Laboratory Tests 02/28/23 12:54 WBC 10.6 Hgb 13.4 Hct 40.8 Plt Count 330 D Sodium 140 Potassium 3.8 Chloride 105 Carbon Dioxide 23 BUN 34 H Creatinine 1.27 Assessment and Plan Assessment Anesthesia Assessment: Chart Reviewed Documented by User: Zenobia Crook MD 03/18/23 10:10 PMFSH Active Problems Active Problems: All Active Problems (Updated 03/18/23 @ 09:57 by Zenobia Crook MD) Lymphadenopathy, mediastinal (Acute) Lung mass (Acute) Smoker (Acute)- last cigarette a few hours ago 03/18/23 COPD (chronic obstructive pulmonary disease) (Acute) Community acquired pneumonia (Acute) RSV bronchitis (Acute) Past Medical History Medical History Smoker COPD (chronic obstructive pulmonary disease) Diverticulosis Hypercholesteremia IBS (irritable bowel syndrome) HTN (hypertension) Family History Family History Sister Breast cancer Family history of problems with anesthesia: No Surgical History Surgical History Hx of tonsillectomy Hx of appendectomy History of lumpectomy Lymphadenopathy, mediastinal Lung mass H/O colonoscopy History of Problems with Anesthesia: No Social History Social History Household Members: None Housing: Apartment Do you presently have visiting nurse or other home services: No Patient Tobacco Use Status: Current everyday Tobacco user Tobacco use type: Cigarette Cigarettes Per Day: 5 Years Smoked: 45years e-Cigarette/Vaping Use: Never Used Second Hand Smoke Exposure: No Use of substances other than those prescribed or required for medical reasons: No Are you DNR?: No Advance Directives: No Advance Directives Information Provided: Yes service: No Current occupational status: retired Meds Allergies Allergy/AdvReac Type Severity Reaction Status Date / Time No Known Allergies Allergy Verified 03/18/23 09:40 [No Known Allergies*] Home Medications Medication Instructions Recorded Confirmed Last Taken Type gemfibrozil 600 mg tablet 600 mg PO BID 12/13/21 03/18/23 12/12/21 History hydrochlorothiazide 25 mg tablet 25 mg PO BEDTIME 12/13/21 03/18/23 12/12/21 History pravastatin 20 mg tablet 20 mg PO BEDTIME 12/13/21 03/18/23 12/12/21 History albuterol sulfate 90 mcg/actuation 2 puff inhalation Q6H PRN 02/06/22 03/18/23 Unknown History aerosol inhaler (ProAir HFA) shortness of breath or wheeze aspirin 81 mg tablet,delayed 81 mg PO DAILY 06/06/22 03/18/23 03/10/23 History release Exam Height,Weight and Vital Signs: Height 5 ft 7 in Weight 58.967 kg Vital Signs Temp Pulse Resp BP Pulse Ox O2 Del Method 03/18/23 09:26 96.7 F L 79 16 136/69 95 Room Air Airway Mallampati Class: II TM Dist: >3cm Neck ROM: Full Denture: Upper Loose/Missing/Broken Teeth: Yes (Full dentures top. Only 1 tooth bottom- not loose or broken per patient ) Heart: RRR Lungs: ? Mild end- expiratory wheezing R>L. Sats 96% (RA) Assessment and Plan Assessment Anesthesia Assessment: Anesthesia Plan Discussed Final Anesthetic Review Family History of Problems with Anesthesia: No History of Problems with Anesthesia: No NPO: Yes ASA Class: III Final Preanesthetic Review: No Changes in Pt Med Stat, Meds/Allgs Chart Reviewed, Consent Obtained/Reviewed and Anes Risks/Benef Reviewed Patient Risk: Intermediate Procedure Risk: Intermediate Assessment/Block/Sedation in SS: Assess/Block/Sedation-SS Anesthetic Plan Anesthetic Plan: GA Disposition: Standard PACU
[2023-03-18] VITALS (9 sets, daily range): BP systolic 111–136; BP diastolic 48–69; PULSE 79–96; RESP 16–20; TEMP 35.9–36.9; O2SAT 95–98; BMI 20.4
--- NOTE | ~2023-03-18 | XR_ITS ---
EXAMINATION: XR CHEST CLINICAL INFORMATION: Lung mass. COMPARISON: Chest radiograph 03/01/2023. TECHNIQUE: AP view of the chest was obtained. FINDINGS: Normal heart size. Similar appearance of a right upper lobe mass measuring approximately up to 5 cm. No pneumothorax. No pleural effusion. No new focal airspace opacity. Several additional pulmonary nodules described on PET/CT from 01/22/[address] chest from 01/07/2023 are too small to be characterized by radiograph. No acute osseous findings. Again noted calcific/ossific bodies adjacent to the right acromioclavicular joint. Visualized upper abdomen is within normal limits. XR/XR chest 1V IMPRESSION: 1. Similar appearance of a right upper lobe mass. 2. No pneumothorax or pleural effusion. 3. No new focal airspace opacity. 4. Several additional pulmonary nodules described on prior PET and CT chest are too small to be characterized by radiograph.
--- NOTE | 2023-03-18 09:18 | MHC.SHP ---
Pre-Procedural Eval Section A Date of Service: 03/18/23 The patient is an INPATIENT: No Changes since office visit: No Cold of Flu in the past 2 weeks, No New Medical Problems, No Changes in Medication and No Patient answered all questions Section B Chief Complaint: Other nonspecific abnormal finding of lung field Details of Present Illness: 82 y/o woman with large RUL mass. +PET scan with mediastinal LN. Relevant Family History (Specify if Yes): No Relevant Social History: None Present Medications: see Short Stay Collaborative assessment Medical History: Significant History Allergies: Allergies Allergy/AdvReac Type Severity Reaction Status Date / Time No Known Allergies Allergy Verified 03/11/23 10:14 [No Known Allergies*] Review of Systems Sugical H&P ROS: Negative: Constitution, Cardiovascular, Neurological, Psychiatric, Hem-Onc, Allergic/Immunologic, Gastrointestinal, Genitourinary, Integumentary and Endocrine and Yes, Specify: Respiratory (cough) Exam Surgical H&P Exam: Normal: HEENT, Normal: Heart, Normal: Lungs, Normal: Extremities, Normal: Abdomen, Normal: Skin and Normal: Neurological Plan Diagnosis/Plan: Change (Lung mass/mediastinal LN, plan to perform an EBUS followed by bronchosopcy with biopsies) I have reviewed the history and physical and performed a pertinent physical examination on my patient. No changes have occurred unless specified. Time Spent With Patient Time: Total time managing care of this patient today ____ minutes.
--- NOTE | 2023-03-18 09:27 | PC.NURSE ---
congested sounding cough, nonproductive. 02 sat 95-96%. no sob. ls clear throughout.
[2023-03-18] MEDS: Lactated Ringers 1,000 ML 100 ML IVCONT (09:39)
[2023-03-18] MEDS: Albuterol Sulfate (0.083%) 2.5 MG/3 ML VIAL.NEB INHALE (10:24)
--- NOTE | 2023-03-18 20:42 | PM.OP ---
Brief Operative Note Date of Service: 03/18/23 Pre-op diagnosis: Lung mass, mediastinal lymphadenopathy Post-op diagnosis: same Procedure: EBUS with TBNA station 4R and 7; Bronchoscopy with transbronchial biopsies RUL/brushings RUL/washings RUL Surgeon: Hernando Keene MD Anesthesia: GETA Was an Quirk Sander used for this Procedure?: No Estimated blood loss (mL): 1 Pathology: other (RUL biopsies; needle aspirate 4R, 7) Condition: stable Disposition: same day
--- NOTE | 2023-03-19 05:03 | OP_ITS ---
DATE OF SERVICE: 03/18/2023 SURGEON: Hernando Keene MD PREOPERATIVE DIAGNOSIS: POSTOPERATIVE DIAGNOSIS: PROCEDURE PERFORMED: Endobronchial ultrasound bronchoscopy with transbronchial needle aspirations with transbronchial biopsies, washings, and brushings. ESTIMATED BLOOD LOSS:1ml COMPLICATIONS:none ANESTHESIA: General endotracheal anesthesia. ASSISTANTS:None SPECIMENS:RUL transbronchial biopsies; Station 4R and 7 Transbronchial needle aspiration (TBNA) PREOPERATIVE DIAGNOSES: Lung mass and mediastinal lymphadenopathy. POSTOPERATIVE DIAGNOSES: Lung mass and mediastinal lymphadenopathy. PROCEDURE IN DETAIL: After the patient was adequately sedated and intubated, a flexible digital bronchoscope with endobronchial ultrasound bronchoscopy (EBUS) was introduced into the endotracheal tube and visualized the distal trachea, which appeared to be normal. Using ultrasound guidance, the lymph node stations were appreciated. The patient did have elongated about 2 cm right paratracheal lymph nodes, there was evident in addition to smaller 1 to 2 cm station 7 lymph node. The lymph node that was active on the PET scan was the 4R lymph node. Using the ultrasound guidance real-time, transbronchial needle aspirations were obtained from the 4R station lymph node. Specimens given to the pathologist and adequate specimens were collected consistent with lymphoid tissue. The patient had undergone 4 samples of the 4R lymph node and then moved to the station 7 where 2 additional samples were collected and placed on the for additional cytologic evaluation. The patient tolerated the procedure the needle aspirations well without any apparent complications. The EBUS bronchoscope was then removed and replaced with the regular bronchoscope. The tracheobronchial tree was examined up to the subsegmental level. The patient did have some purulent secretions from the left lower lobe area that was suctioned, no endobronchial lesions or masses noted. The patient did have bronchiectatic changes and evidence of chronic airway disease throughout the airways. Using cytologic brushes into the right upper lobe, apical segments as there were 2. Specimen sent to the proper location. Then, bronchial washings were collected and ice saline was used for good hemostasis. Next, using forceps transbronchial needle aspirations of the right upper lobe were collected, patient did have some minimal bleeding noted. Epinephrine was used, half an ampule with good hemostasis. No evidence of any bleeding at the end of the procedure. The bronchoscope was removed. The total endoscopic time approximately 45 minutes. Patient tolerated the procedure well. Vital signs were stable throughout the procedure. Chest x-ray postoperative appeared to be intact with the evidence of the right upper lung mass, but no evidence of pneumothorax. MD CHERYL Morataya/WILTON / [id number] MTDD
== END 2023-03-18 14:44 | disposition home or self-care (01) ==
PROVIDERS: PCP Student in an Organized Health Care Education/Training Program; Visit Provider Hospitalist
PROC: (CPT 31652; principal; 2023-03-18 10:30)
DX: C34.11 Malignant neoplasm of upper lobe, right bronchus or lung (principal); C77.1 Secondary and unspecified malignant neoplasm of intrathoracic lymph nodes; R59.0 Localized enlarged lymph nodes; J44.9 Chronic obstructive pulmonary disease, unspecified; I10 Essential (primary) hypertension; E78.00 Pure hypercholesterolemia, unspecified; F17.210 Nicotine dependence, cigarettes, uncomplicated; Z79.82 Long term (current) use of aspirin; Z79.899 Other long term (current) drug therapy
CPT/HCPCS: 31652; 31628; 31629; 31623; 71045; 87070; 87205; 88112; 88172; 88173; 88177; 88305; 88341; 88342; 94640; J0171; J1100; J2371; J2405; J3010

== ENCOUNTER → 2023-03-18 08:54 | Outpatient (BNV) | payer MEDICARE, SELFPAY | PROVIDERS: PCP Student in an Organized Health Care Education/Training Program; Visit Provider Hospitalist | DX: C34.11 Malignant neoplasm of upper lobe, right bronchus or lung (principal); C78.1 Secondary malignant neoplasm of mediastinum | CPT/HCPCS: 31623; 31625; 31645; 31652 ==

== ENCOUNTER 2023-03-19 11:27 | Outpatient (REF) | payer MEDICARE, OTHER, SELFPAY ==
--- NOTE | ~2023-03-19 | XR_ITS ---
EXAMINATION: XR CHEST CLINICAL INFORMATION: Status post bronchoscopy COMPARISON: 03/18/2023 TECHNIQUE: 2 views of the chest were obtained. FINDINGS: No significant change large right apical mass and right hilar prominence. No pneumothorax identified status post bronchoscopy. Heart and mediastinum within normal limits. Aortic calcifications again seen. No consolidations or effusions. Degenerative changes and demineralization. XR/XR chest 2V IMPRESSION: No pneumothorax status post bronchoscopy.
== END 2023-03-19 11:28 | disposition home or self-care (01) ==
LOC: HO.XRAY 11:27
PROVIDERS: Visit Provider Hospitalist
DX: R91.8 Other nonspecific abnormal finding of lung field (principal)
CPT/HCPCS: 71046

== ENCOUNTER 2023-03-27 14:57 | Outpatient (AMB) | payer MEDICARE, MEDICAID, SELFPAY ==
[2023-03-27 15:12] VITALS: BP 102/60; PULSE 76; O2SAT 95; BMI 20.2
--- NOTE | 2023-03-27 15:12 | MHC.OFFVIS ---
Intake Vital Signs 03/27/23 15:12 Height 5 ft 6.5 in Weight 127 lb BMI 20.2 BP 102/60 Blood Pressure Location Lt brachial Position Sitting Pulse 76 Pulse Source Pulse Oximeter Pulse Oximetry (%) 95 Oxygen Delivery Method Room Air Intake Visit Reasons: S/p ebus Intake Note: pt is here for results of biopsy. [employer] Negative Required: No Allergies No Known Allergies [No Known Allergies*] Allergy (Verified 03/27/23 15:45) Medication List - Last Reconciled 03/27/23 by Janet Soliz MD albuterol sulfate 90 mcg/actuation (ProAir HFA) 2 puffs inhalation Q6H PRN amoxicillin-pot clavulanate 875-125 mg 1 tab PO BID 14 days aspirin 81 mg PO DAILY gemfibrozil 600 mg PO BID hydrochlorothiazide 25 mg PO BEDTIME pravastatin 20 mg PO BEDTIME Do you need a note to return to daycare/school/sports/work: No HPI S/p ebus HPI Details This 82 years old very pleasant female. Has history of life time smoking. She has mild COPD treated with only albuterol p.r.n.. Because of her history of smoking she underwent CT scan of the chest in December of this year, A 3 x 4 cm mass in the right upper lobe was noted. PET scan on 01/22/2023, positive for FDG avid right upper lobe mass, and also paratracheal lymph node FDG avid. On 03/01/23 a percutaneous needle biopsy was performed by Interventional Radiology. It was negative for any malignancy. However because of relatively large mass with mediastinal lymphadenopathy, there was strong possibility of neoplastic process. Patient was seen by thoracic surgeon Dr. Sandoval, who recommended that she should have bronchoscopy and biopsy byEBUS procedure. On 03/19, Dr. Hernando Keene performed bronchoscopy and EBUS, biopsy of the lung mass as well as mediastinal lymph node. Bronchial washing grew you Strep VIRIDANS, and she is being treated with Augmentin for 2 weeks. The biopsy from the lung mass as well as from the lymph node are positive for SMALL CELL CARCINOMA. PATIENT COMES HERE TODAY TO DISCUSS ABOUT THE RESULTS WHICH I HAVE EXPLAINED TO HER WELL TO HER DAUGHTER. SHE CLAIMS THAT SHE IS STILL EATING WELL, SHE HAS NO CHEST PAIN, SHE HAS ONLY MILD SHORTNESS OF BREATH, NO WHEEZING. SHE IS USING ALBUTEROL HFA ONLY P.R.N.. [facility]LY [facility] Medical History (Updated 03/27/23 @ 15:59 by Janet Soliz MD) Small cell carcinoma Smoker COPD (chronic obstructive pulmonary disease) Diverticulosis Hypercholesteremia IBS (irritable bowel syndrome) HTN (hypertension) Surgical History Hx of tonsillectomy Hx of appendectomy History of lumpectomy Lymphadenopathy, mediastinal Lung mass H/O colonoscopy Family History Sister Breast cancer Social History Household Members: None Housing: Apartment Do you presently have visiting nurse or other home services: No Patient Tobacco Use Status: Current everyday Tobacco user Tobacco use type: Cigarette Cigarettes Per Day: 5 Years Smoked: 45years e-Cigarette/Vaping Use: Never Used Second Hand Smoke Exposure: No service: No Current occupational status: retired Review of Systems Const All systems reviewed & are unremarkable except as noted in HPI and below Eyes Reports no additional complaints ENT Reports no additional complaints Card Denies chest pain, Denies irregular heart rhythm and Denies leg edema Resp Reports as per HPI GI Reports no additional complaints Reports no additional complaints Musc Reports no additional complaints Skin/Breast Reports system reviewed and no additional complaints, except as documented Neuro Reports no additional complaints Psych Reports no additional complaints Physical Exam Vital Signs: Last Vital Signs Pulse 76 03/27/23 15:12 BP 102/60 03/27/23 15:12 Pulse Ox 95 03/27/23 15:12 Oxygen Delivery Method Room Air 03/27/23 15:12 BMI result Body Mass Index 20.2 Const General: healthy appearing, comfortable, no acute distress, alert and awake Orientation/consciousness: patient oriented x3 HEENT Head: Yes normal to inspection General nose exam: No nasal polyps present and No nasal discharge present Face and sinus: Yes sinuses nontender Mouth: oropharynx normal Throat: Yes posterior oropharynx normal Eyes General: appearance normal, both eyes and all related structures Neck Neck: Yes normal visual inspection, Yes no lymphadenopathy, Yes trachea midline and Yes no JVD Thyroid: Thyroid normal Chest Chest palpation & inspection: normal inspection of the chest, normal palpation of entire chest wall and no tenderness Resp Other: Percussion note hyper-resonant. Breath sounds are slightly distant with prolonged expiratory phase. No wheezes or rhonchi . No creps. Cardio Palpation: normal PMI Rate: regular rate Rhythm: regular rhythm Heart sounds: no gallops and no murmurs Peripheral pulses: Peripheral pulses 2+ throughout GI Palpation (GI): Soft to palpation, nontender, No hepatosplenomegaly present and no masses Auscultation: normal bowel sounds Back/Spine/Pelvis Thoracic/Lumbar Spine: thoracic and lumbar spine normal to inspection Skin General skin exam: no rashes or lesions noted Neuro General: patient oriented x3 and no focal motor deficits Cranial nerves: Yes CN's II-XII intact bilaterally Extrem General: Yes normal to inspection, Yes no clubbing, cyanosis or edema and Yes no calf tenderness Psych Appearance: grossly normal and well kempt Speech and movement: Normal speech and movement present Results Reviewed Results Reviewed: I REVIEWED THE RESULTS OF HER CT SCAN WELL PET SCAN. ALSO REVIEWED THE RESULTS OF BIOPSY. SHE AND HER DAUGHTER UNDERSTAND VERY WELL. Assessment & Plan Assessment & Plan (1) Smoker: Comment: SHE IS A LONG-TIME SMOKER, HAS REDUCED TO 5 CIGARETTES A DAY. AGAIN HAD A DETAILED DISCUSSION WITH HER AND ADVISED HER TO QUIT COMPLETELY, OR AT LEAST CUT DOWN MUCH POSSIBLE SHE IS TRYING TO QUIT COMPLETELY. Code(s): F17.200 - Nicotine dependence, unspecified, uncomplicated (2) COPD (chronic obstructive pulmonary disease): Comment: SHE HAS BEEN SMOKER FOR LAST 45 YEARS. TRYING TO CUT DOWN MUCH POSSIBLE. SHE IS RELATIVELY ASYMPTOMATIC AT PRESENT EXCEPT FOR COUGHING JAGS . SPIROMETRY HAS SHOWN MILD TO MODERATE DEGREE OF COPD. TX : ALBUTEROL HFA 2 PUFFS Q 4-6 HOURS ONLY P.R.N. IF THERE IS A BOUT OF PERSISTENT COUGH OR WHEEZING. DOES NOT NEED ANY MAINTENANCE REGIMEN AT THIS TIME. Code(s): J44.9 - Chronic obstructive pulmonary disease, unspecified (3) Small cell carcinoma: Comment: HAS A ROUNDED MASS IN RIGHT UPPER LOBE WITH MEDIASTINAL LYMPHADENOPATHY STRONGLY FDG ACTIVE. 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 I EXPLAINED THIS FINDING TO THE PATIENT AND HER DAUGHTER. I ALSO EXPLAINED THAT THIS TUMOR MAY BE AMENABLE TO TREATMENT BY CHEMOTHERAPY. SHE WILL BE REFERRED TO ONCOLOGY SERVICE, THE PATIENT AND HER DAUGHTER BOTH ARE AGREEABLE TO MAKE AN APPOINTMENT AT [facility]. Code(s): C80.1 - Malignant (primary) neoplasm, unspecified Orders: Referrals Hematology & Oncology Referral C80.1 - Malignant (primary) neoplasm, unspecified, J44.9 - Chronic obstructive pulmonary disease, unspecified Coding Level of Care Code Est Pt Level 4 (11600) Diagnoses Smoker F17.200 COPD (chronic obstructive pulmonary disease) J44.9 Small cell carcinoma C80.1
== END 2023-03-27 15:39 | disposition home or self-care (01) ==
PROVIDERS: PCP Student in an Organized Health Care Education/Training Program; Visit Provider Internal Medicine
DX: F17.200 Nicotine dependence, unspecified, uncomplicated (principal); J44.9 Chronic obstructive pulmonary disease, unspecified; C80.1 Malignant (primary) neoplasm, unspecified
CPT/HCPCS: 99214

== ENCOUNTER → 2023-03-27 14:57 | Outpatient (BNVA) | payer MEDICARE, SELFPAY | PROVIDERS: PCP Student in an Organized Health Care Education/Training Program; Visit Provider Internal Medicine | DX: C80.1 Malignant (primary) neoplasm, unspecified (principal); J44.9 Chronic obstructive pulmonary disease, unspecified; F17.210 Nicotine dependence, cigarettes, uncomplicated | CPT/HCPCS: 99212 ==

== ENCOUNTER 2023-04-03 13:41 | Outpatient (AMB) | payer MEDICARE, SELFPAY ==
[2023-04-03 13:50] VITALS: BP 107/59; PULSE 94; BMI 21.1
--- NOTE | 2023-04-03 13:50 | MHC.OFFVIS ---
Intake Vital Signs 04/03/23 13:50 Height 5 ft 5 in Weight 127 lb BMI 21.1 BP 107/59 L Blood Pressure Location Rt brachial Position Sitting Pulse 94 Intake Visit Reasons: port placement Intake Note: Patient here to discuss port placement. 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 She presents here for Port-A-Cath placement for recently diagnosed small-cell lung cancer. Patient is known to me from the recent past. [facility] Medical History Small cell carcinoma Smoker COPD (chronic obstructive pulmonary disease) Diverticulosis Hypercholesteremia IBS (irritable bowel syndrome) HTN (hypertension) Surgical History Hx of tonsillectomy Hx of appendectomy History of lumpectomy Lymphadenopathy, mediastinal Lung mass H/O colonoscopy Family History Sister Breast cancer Social History Household Members: None Housing: Apartment Do you presently have visiting nurse or other home services: No Patient Tobacco Use Status: Current everyday Tobacco user Tobacco use type: Cigarette Years Smoked: 45years e-Cigarette/Vaping Use: Never Used Second Hand Smoke Exposure: No service: No Current occupational status: retired Physical Exam Vital Signs: Last Vital Signs Pulse 94 04/03/23 13:50 BP 107/59 L 04/03/23 13:50 BMI result Body Mass Index 21.1 Chest Other: Chest breath sounds bilaterally, HS 1 in 2 GI Other: Abdomen soft, benign Assessment & Plan Assessment & Plan (1) Small cell carcinoma: Comment: HAS A ROUNDED MASS IN RIGHT UPPER LOBE WITH MEDIASTINAL LYMPHADENOPATHY STRONGLY FDG ACTIVE. 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 I EXPLAINED THIS FINDING TO THE PATIENT AND HER DAUGHTER. I ALSO EXPLAINED THAT THIS TUMOR MAY BE AMENABLE TO TREATMENT BY CHEMOTHERAPY. SHE WILL BE REFERRED TO ONCOLOGY SERVICE, THE PATIENT AND HER DAUGHTER BOTH ARE AGREEABLE TO MAKE AN APPOINTMENT AT [facility]. Code(s): C80.1 - Malignant (primary) neoplasm, unspecified (2) Admission for fitting of Port-A-Cath: Code(s): Z45.2 - Encounter for adjustment and management of vascular access device Plan Risks, benefits, alternatives of Port-A-Cath placement were reviewed with the patient and her daughter and included but not limited to bleeding, infection, pneumothorax, numbness, pain, scarring, catheter migration and the patient wishes to proceed. All questions were answered. Tentatively this will be scheduled for 04/05/2023 Coding Level of Care Code Est Pt Level 5 (81342) Diagnoses Small cell carcinoma C80.1 Admission for fitting of Port-A-Cath Z45.2
== END 2023-04-03 14:20 | disposition home or self-care (01) ==
PROVIDERS: PCP Student in an Organized Health Care Education/Training Program; Visit Provider Surgery
DX: C80.1 Malignant (primary) neoplasm, unspecified (principal); Z45.2 Encounter for adjustment and management of vascular access device
CPT/HCPCS: 99215

== ENCOUNTER → 2023-04-03 13:41 | Outpatient (BNVA) | payer MEDICARE, SELFPAY | PROVIDERS: PCP Student in an Organized Health Care Education/Training Program; Visit Provider Surgery | DX: Z45.2 Encounter for adjustment and management of vascular access device (principal); C34.11 Malignant neoplasm of upper lobe, right bronchus or lung; R59.0 Localized enlarged lymph nodes | CPT/HCPCS: 99212 ==

== ENCOUNTER 2023-04-04 11:07 | Outpatient (REF) | payer MEDICARE, OTHER, SELFPAY ==
--- NOTE | ~2023-04-04 | MR_ITS ---
EXAMINATION: MR BRAIN WITHOUT AND WITH CONTRAST CLINICAL INFORMATION: Small cell carcinoma of the lungs. Initial staging. COMPARISON: None available. TECHNIQUE: Multiplanar, multisequence MRI of the brain was obtained before and after the intravenous administration of 5.5 mL Gadavist. FINDINGS: Motion artifact is present. Multiple enhancing lesions as follows: -3 mm subcortical lesion involving the left middle frontal gyrus (series 11, image 103 of 144) with associated mild FLAIR hyperintensity. -4 mm lesion involving the left parietal operculum (series 11, image 92) with associated minimal FLAIR hyperintensity. -8 x 7 mm rim-enhancing lesion in the left parietal lobe (series 11, image 89) with associated restricted diffusion and FLAIR hyperintensity. -8 x 8 mm enhancing lesion with central focus of hypoenhancement in the right cerebellar hemisphere (series 11, image 52) without associated restricted diffusion and surrounding FLAIR hyperintensity. 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 No acute intracranial hemorrhage or infarct. Scattered and confluent periventricular white matter T2/FLAIR hyperintensities, nonspecific however commonly seen with small vessel ischemic disease. No midline shift or hydrocephalus. No acute extra-axial fluid collections. The osseous structures are unremarkable. The pituitary gland, pineal gland and remaining midline structures are unremarkable. Sequelae of bilateral lens replacement. Otherwise, no orbital pathology. Mucosal thickening of the paranasal sinuses. The mastoid air cells are clear. 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
[2023-04-04] MEDS: gadobutroL 7.5 ML VIAL IVPUSH (12:36)
== END 2023-04-04 11:08 | disposition home or self-care (01) ==
LOC: HO.MRI 11:07
PROVIDERS: PCP Student in an Organized Health Care Education/Training Program; Visit Provider Internal Medicine Medical Oncology
DX: C80.1 Malignant (primary) neoplasm, unspecified (principal)
CPT/HCPCS: 70553; A9585

== ENCOUNTER 2023-04-05 09:22 | Day surgery (SDC) | payer MEDICARE, OTHER, SELFPAY ==
--- NOTE | 2023-04-04 07:22 | MHC.SHP ---
Pre-Procedural Eval Section A Date of Service: 04/04/23 The patient is an INPATIENT: No Changes since office visit: No Cold of Flu in the past 2 weeks, No New Medical Problems, No Changes in Medication and No Patient answered all questions The History & Physical has been completed within 30 days and I have reviewed it.: Yes Section B Chief Complaint: Malignant (primary) neoplasm,access device Allergies: Allergies Allergy/AdvReac Type Severity Reaction Status Date / Time No Known Allergies Allergy Verified 04/03/23 13:51 [No Known Allergies*] Plan I have reviewed the history and physical and performed a pertinent physical examination on my patient. No changes have occurred unless specified. Time Spent With Patient Time: Total time managing care of this patient today ____ minutes.
[2023-04-05] VITALS (10 sets, daily range): BP systolic 116–145; BP diastolic 51–67; PULSE 65–94; RESP 16–18; TEMP 36.1–36.6; O2SAT 93–97; BMI 21.1
--- NOTE | ~2023-04-05 | XR_ITS ---
EXAMINATION: XR CHEST CLINICAL INFORMATION: Status post right IJ port placement. COMPARISON: 03/19/2023 TECHNIQUE: Frontal view of the chest was obtained. XR/XR chest 1V FINDINGS AND IMPRESSION: The tip of the right IJ port catheter is located at level of proximal superior vena cava. No pneumothorax. Lungs are adequately expanded. Again noted is an irregular mass in the right upper lobe. No pleural effusion. No acute pulmonary disease compared to 03/19/2023. Cardiac silhouette has normal size and contour. Atherosclerotic calcification of the aorta. No acute skeletal findings.
--- NOTE | ~2023-04-05 | FL_ITS ---
EXAMINATION: XR FLUOROSCOPY WITH IMAGES CLINICAL INFORMATION: Port-A-Cath insertion. COMPARISON: None available. TECHNIQUE: Fluoroscopy Supervised By: Dr. Nicholas Sandoval. Fluoroscopy Time: 0.2 minutes. Cumulative Dose: 2.07 mGy. DAP: 0.564 Gycm2. Images: 1. FINDINGS: Images demonstrate a right jugular Port-A-Cath with tip projecting over the SVC. There is a large right upper lobe mass. FL/FL guidance in OR IMPRESSION: Fluoroscopy guidance for Port-A-Cath placement
[2023-04-05] MEDS: Lactated Ringers 1,000 ML 100 ML IVCONT (09:40)
--- NOTE | 2023-04-05 09:54 | PC.NURSE ---
Dr. Vee updated that patient is a smoker, lung sounds diminished throughtout, with exception of clear sounds in left lower base. occ. smoker cough noted. Dr. Vee ordered respiratory treatment. to be completed now by respiratory.
[2023-04-05] MEDS: Albuterol Sulfate (0.083%) 2.5 MG/3 ML VIAL.NEB INHALE (10:05)
--- NOTE | 2023-04-05 10:45 | HO.ANESPROP2 ---
Documented by User: Marcela Luque NP 04/04/23 09:10 HPI - Anesthesia Eval Consult details Narrative: 82yo F for Port-a-Cath Insertion Small cell ca of lung (hx of breast ca) Smoker PMF Active Problems Active Problems: All Active Problems (Updated 03/28/23 @ 12:43 by Yosef Wolff MD) Admission for fitting of Port-A-Cath (Acute) Breast cancer (Acute) Small cell carcinoma (Acute) RSV bronchitis (Acute) Community acquired pneumonia (Acute) Lymphadenopathy, mediastinal (Acute) Lung mass (Acute) Smoker (Acute) COPD (chronic obstructive pulmonary disease) (Acute) Past Medical History Medical History Small cell carcinoma Smoker COPD (chronic obstructive pulmonary disease) Diverticulosis Hypercholesteremia IBS (irritable bowel syndrome) HTN (hypertension) Family History Family History Sister Breast cancer Family history of problems with anesthesia: No Surgical History Surgical History Hx of tonsillectomy Hx of appendectomy History of lumpectomy Lymphadenopathy, mediastinal Lung mass H/O colonoscopy History of Problems with Anesthesia: No Social History Social History Household Members: None Housing: Apartment Do you presently have visiting nurse or other home services: No Patient Tobacco Use Status: Current everyday Tobacco user Tobacco use type: Cigarette Years Smoked: 45years Smoked in Last 30 Days: Yes e-Cigarette/Vaping Use: Never Used Patient Interested in Nicotine Replacement: No Second Hand Smoke Exposure: No Are you DNR?: No Advance Directives: No Advance Directives Information Provided: Yes service: No Current occupational status: retired Meds Allergies Allergy/AdvReac Type Severity Reaction Status Date / Time No Known Allergies Allergy Verified 04/05/23 10:00 [No Known Allergies*] Home Medications Medication Instructions Recorded Confirmed Last Taken Type gemfibrozil 600 mg tablet 600 mg PO BID 12/13/21 04/05/23 12/12/21 History hydrochlorothiazide 25 mg tablet 25 mg PO BEDTIME 12/13/21 04/05/23 12/12/21 History pravastatin 20 mg tablet 20 mg PO BEDTIME 12/13/21 04/05/23 12/12/21 History albuterol sulfate 90 mcg/actuation 2 puff inhalation Q6H PRN 02/06/22 04/05/23 Unknown History aerosol inhaler (ProAir HFA) shortness of breath or wheeze aspirin 81 mg tablet,delayed 81 mg PO DAILY 06/06/22 04/05/23 03/29/23 History release Exam Exam Date and Time: April 04, 2023 09 Pertinent Lab Results Pertinent Lab Results: Laboratory Tests 03/28/23 11:47 WBC 10.8 Hgb 13.0 Hct 40.5 Plt Count 385 Sodium 142 Potassium 4.9 D Chloride 106 Carbon Dioxide 23 BUN 22 H Creatinine 1.00 Assessment and Plan Assessment Anesthesia Assessment: Chart Reviewed Final Anesthetic Review Family History of Problems with Anesthesia: No History of Problems with Anesthesia: No Documented by User: Kendra Vee DO 04/05/23 10:54 PMFSH Past Medical History Medical History Small cell carcinoma Smoker COPD (chronic obstructive pulmonary disease) Diverticulosis Hypercholesteremia IBS (irritable bowel syndrome) HTN (hypertension) Family History Family History Sister Breast cancer Family history of problems with anesthesia: No Surgical History Surgical History Hx of tonsillectomy Hx of appendectomy History of lumpectomy Lymphadenopathy, mediastinal Lung mass H/O colonoscopy History of Problems with Anesthesia: No Social History Social History Household Members: None Housing: Apartment Do you presently have visiting nurse or other home services: No Patient Tobacco Use Status: Current everyday Tobacco user Tobacco use type: Cigarette Years Smoked: 45years Smoked in Last 30 Days: Yes e-Cigarette/Vaping Use: Never Used Patient Interested in Nicotine Replacement: No Second Hand Smoke Exposure: No Are you DNR?: No Advance Directives: No Advance Directives Information Provided: Yes service: No Current occupational status: retired Meds Allergies Allergy/AdvReac Type Severity Reaction Status Date / Time No Known Allergies Allergy Verified 04/05/23 10:00 [No Known Allergies*] Home Medications Medication Instructions Recorded Confirmed Last Taken Type gemfibrozil 600 mg tablet 600 mg PO BID 12/13/21 04/05/23 12/12/21 History hydrochlorothiazide 25 mg tablet 25 mg PO BEDTIME 12/13/21 04/05/23 12/12/21 History pravastatin 20 mg tablet 20 mg PO BEDTIME 12/13/21 04/05/23 12/12/21 History albuterol sulfate 90 mcg/actuation 2 puff inhalation Q6H PRN 02/06/22 04/05/23 Unknown History aerosol inhaler (ProAir HFA) shortness of breath or wheeze aspirin 81 mg tablet,delayed 81 mg PO DAILY 06/06/22 04/05/23 03/29/23 History release Exam Exam Date and Time: April 05, 2023 1045 Height,Weight and Vital Signs: Vital Signs Temperature 97.9 F 04/05/23 09:57 Pulse Rate 65 04/05/23 09:57 Respiratory Rate 18 04/05/23 09:57 Blood Pressure 136/61 04/05/23 09:57 Pulse Oximetry 95 04/05/23 09:57 Oxygen Delivery Method Room Air 04/05/23 09:57 Temperature 97.9 F 04/05/23 09:57 Pulse Rate 79 04/05/23 10:08 Respiratory Rate 18 04/05/23 10:08 Blood Pressure 136/61 04/05/23 09:57 Pulse Oximetry 95 04/05/23 09:57 Oxygen Delivery Method Room Air 04/05/23 09:57 Height 5 ft 5 in Weight 57.606 kg Airway Mallampati Class: I Neck ROM: Full Denture: Upper Heart: S1S2 Lungs: Diminished bilaterally Assessment and Plan Assessment Anesthesia Assessment: Anesthesia Plan Discussed and Chart Reviewed Final Anesthetic Review Family History of Problems with Anesthesia: No History of Problems with Anesthesia: No NPO: Yes ASA Class: III Final Preanesthetic Review: No Changes in Pt Med Stat, Meds/Allgs Chart Reviewed, Consent Obtained/Reviewed and Anes Risks/Benef Reviewed Patient Risk: Intermediate Procedure Risk: Low Anesthetic Plan Anesthetic Plan: GA and Agree w/ Assess. and Plan Disposition: Standard PACU
--- NOTE | 2023-04-05 11:44 | P.OP_ITS ---
Operative Note Operative Note Date of Service: 04/05/23 Narrative: Preoperative diagnosis: [] IV access for chemotherapy, lung cancer Postop diagnosis: [] same Procedure [] right internal jugular vein Port-A-Cath placement with Doppler ultrasound guidance and fluoroscopy Surgeon: [] Jaime Cabin Cleaning Supervisor: [] Sol Type of Anesthesia: [] LMA Indication for surgery: [] IV access Findings: [] patient brought to the operating room, placed on operative table in supine position, after adequate level of LMA anesthesia was induced, bilateral neck and chest areas were prepped draped in usual sterile fashion. Using Doppler ultrasound guidance, the right internal jugular vein was identified and cannulated using Seldinger technique. A wire was advanced level of the superior vena cava under fluoroscopic guidance. A pocket was fashioned approximately 4 fingerbreadths below the wire and tunnel to the wire. A catheter was placed the subcutaneous tunnel, connected to port, and secured to the pocket using 3-0 Vicryl sutures. Dilating sheath was then placed over the wire again under fluoroscopic guidance and a wire retrieved. Pre hep flushed catheter was advanced over the sheath to the level of the superior vena cava under fluoroscopic guidance. Peel-away sheath was removed out incident. Antegrade and retrograde flow were easily established. Wounds were irrigated, secured hemostasis, and closed using interrupted inverted dermal 3-0 Vicryl sutures followed by Steri-Strips and sterile dressings. Wounds were infiltrated 0.5% Marcaine/ 1% lidocaine. Sponge, needle, and instrument counts reported correct. Patient tolerated the procedure well and emerged anesthesia stable condition. EBL minimal. Postprocedure x-ray in the operating room was within normal limits. Permanent chest x-ray film From recovery room is pending.
== END 2023-04-05 13:25 | disposition home or self-care (01) ==
PROVIDERS: PCP Student in an Organized Health Care Education/Training Program; Visit Provider Surgery
PROC: (CPT 36561; principal; 2023-04-05 11:10)
DX: Z45.2 Encounter for adjustment and management of vascular access device (principal); C34.11 Malignant neoplasm of upper lobe, right bronchus or lung; Z85.3 Personal history of malignant neoplasm of breast; J44.9 Chronic obstructive pulmonary disease, unspecified; F17.210 Nicotine dependence, cigarettes, uncomplicated; I10 Essential (primary) hypertension; Z79.899 Other long term (current) drug therapy; Z79.82 Long term (current) use of aspirin
CPT/HCPCS: 36561; 71045; 94640; C1788; J0690; J1100; J1643; J2371; J2405; J2795; J3010

== ENCOUNTER → 2023-04-17 13:00 | Outpatient (BNV) | payer MEDICARE, MEDICAID, SELFPAY | PROVIDERS: PCP Student in an Organized Health Care Education/Training Program; Visit Provider Internal Medicine Medical Oncology | DX: C34.11 Malignant neoplasm of upper lobe, right bronchus or lung (principal); Z85.3 Personal history of malignant neoplasm of breast | CPT/HCPCS: 99204; 99213; 99214 ==

== ENCOUNTER 2023-04-30 10:46 | Outpatient (AMB) | payer MEDICARE, MEDICAID, SELFPAY ==
--- NOTE | 2023-04-30 11:32 | MHC.OFFVIS ---
Intake Vital Signs 04/30/23 11:33 Height 5 ft 5 in Weight 123 lb BMI 20.5 BP 98/54 L Blood Pressure Location Lt brachial Pulse 90 Pulse Source Pulse Oximeter Pulse Oximetry (%) 97 Oxygen Delivery Method Room Air Intake Visit Reasons: S/p ebus Intake Note: pt is here for follow up and states she started chemo had one treatment done, next one is every 3 days, and radiation will be started. She feels okay , but she does cough, some short of breath and fatigue. Consumer Loan Officer Required: No Allergies No Known Allergies [No Known Allergies*] Allergy (Verified 04/30/23 11:55) Medication List - Last Reconciled 04/30/23 by Janet Soliz MD albuterol sulfate 90 mcg/actuation (ProAir HFA) 2 puffs inhalation Q6H PRN gemfibrozil 600 mg PO BID hydrochlorothiazide 25 mg PO BEDTIME hydrocodone-acetaminophen 5-325 mg 1 tab PO Q4-6H PRN ondansetron 8 mg PO Q8H pravastatin 20 mg PO BEDTIME Do you need a note to return to daycare/school/sports/work: No HPI S/p ebus HPI Details 82 YEARS OLD VERY PLEASANT FEMALE WITH RECENT DIAGNOSIS OF SMALL CELL CARCINOMA RIGHT UPPER LOBE WITH POSITIVE LYMPH NODE BIOPSY. MRI SHOWING METS IN THE BRAIN. SHE HAS BEEN STARTED ON CHEMOTHERAPY, BY DR. SUMNER, AND IS SCHEDULED TO HAVE RADIATION THERAPY AT [facility] WHICH WILL BE STARTED IN EARLY MAY. REMAINS IN GOOD SPIRITS. SHE HAS NO BREATHING ISSUES. APPETITE IS POOR BUT SHE IS STILL EATING FAIRLY WELL. NO PAINS AND ACHES. [facility] Medical History Smoker COPD (chronic obstructive pulmonary disease) Diverticulosis Hypercholesteremia IBS (irritable bowel syndrome) HTN (hypertension) Surgical History Small cell carcinoma Hx of tonsillectomy Hx of appendectomy History of lumpectomy Lymphadenopathy, mediastinal Lung mass H/O colonoscopy Family History Sister Breast cancer Social History Household Members: None Housing: Apartment Do you presently have visiting nurse or other home services: No Patient Tobacco Use Status: Current everyday Tobacco user Tobacco use type: Cigarette Years Smoked: 45years e-Cigarette/Vaping Use: Never Used Second Hand Smoke Exposure: No service: No Current occupational status: retired Review of Systems Const All systems reviewed & are unremarkable except as noted in HPI and below Eyes Reports no additional complaints ENT Reports no additional complaints Card Denies chest pain, Denies irregular heart rhythm and Denies leg edema Resp Reports as per HPI GI Reports no additional complaints Reports no additional complaints Musc Reports no additional complaints Skin/Breast Reports system reviewed and no additional complaints, except as documented Neuro Reports no additional complaints Psych Reports no additional complaints Physical Exam Vital Signs: Last Vital Signs Pulse 90 04/30/23 11:33 BP 98/54 L 04/30/23 11:33 Pulse Ox 97 04/30/23 11:33 Oxygen Delivery Method Room Air 04/30/23 11:33 BMI result Body Mass Index 20.5 Const General: healthy appearing, comfortable, no acute distress, alert and awake Orientation/consciousness: patient oriented x3 HEENT Head: Yes normal to inspection General nose exam: No nasal polyps present and No nasal discharge present Face and sinus: Yes sinuses nontender Mouth: oropharynx normal Throat: Yes posterior oropharynx normal Eyes General: appearance normal, both eyes and all related structures Neck Neck: Yes normal visual inspection, Yes no lymphadenopathy, Yes trachea midline and Yes no JVD Thyroid: Thyroid normal Chest Chest palpation & inspection: normal inspection of the chest, normal palpation of entire chest wall and no tenderness Resp Other: Percussion note hyper-resonant. Breath sounds are slightly distant with prolonged expiratory phase. No wheezes or rhonchi . No creps. Cardio Palpation: normal PMI Rate: regular rate Rhythm: regular rhythm Heart sounds: no gallops and no murmurs Peripheral pulses: Peripheral pulses 2+ throughout GI Palpation (GI): Soft to palpation, nontender, No hepatosplenomegaly present and no masses Auscultation: normal bowel sounds Back/Spine/Pelvis Thoracic/Lumbar Spine: thoracic and lumbar spine normal to inspection Skin General skin exam: no rashes or lesions noted Neuro General: patient oriented x3 and no focal motor deficits Cranial nerves: Yes CN's II-XII intact bilaterally Extrem General: Yes normal to inspection, Yes no clubbing, cyanosis or edema and Yes no calf tenderness Psych Appearance: grossly normal and well kempt Speech and movement: Normal speech and movement present Assessment & Plan Assessment & Plan (1) COPD (chronic obstructive pulmonary disease): Comment: SHE HAS BEEN SMOKER FOR LAST 45 YEARS. TRYING TO CUT DOWN MUCH POSSIBLE. SHE IS RELATIVELY ASYMPTOMATIC AT PRESENT EXCEPT FOR COUGHING JAGS . SPIROMETRY HAS SHOWN MILD TO MODERATE DEGREE OF COPD. TX : ALBUTEROL HFA 2 PUFFS Q 4-6 HOURS ONLY P.R.N. IF THERE IS A BOUT OF PERSISTENT COUGH OR WHEEZING. DOES NOT NEED ANY MAINTENANCE REGIMEN AT THIS TIME. Code(s): J44.9 - Chronic obstructive pulmonary disease, unspecified (2) Smoker: Comment: SHE IS A LONG-TIME SMOKER, HAS REDUCED TO 5 CIGARETTES A DAY AND IS TRYING TO QUIT COMPLETELY. Code(s): F17.200 - Nicotine dependence, unspecified, uncomplicated (3) Small cell carcinoma: Comment: HAS A ROUNDED MASS IN RIGHT UPPER LOBE WITH MEDIASTINAL LYMPHADENOPATHY STRONGLY FDG ACTIVE. 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 MRI OF BRAIN IS POSITIVE FOR BRAIN METS. PATIENT IS UNDER CARE OF DR. HENRY SUMNER . AND HAS ALREADY BEEN STARTED ON CHEMOTHERAPY. ALSO SCHEDULED TO HAVE RADIATION THERAPY AT [facility] Code(s): C80.1 - Malignant (primary) neoplasm, unspecified Coding Level of Care Code Est Pt Level 3 (40443) Diagnoses COPD (chronic obstructive pulmonary disease) J44.9 Smoker F17.200 Small cell carcinoma C80.1
[2023-04-30 11:33] VITALS: BP 98/54; PULSE 90; O2SAT 97; BMI 20.5
== END 2023-04-30 11:59 | disposition home or self-care (01) ==
PROVIDERS: PCP Student in an Organized Health Care Education/Training Program; Visit Provider Internal Medicine
DX: J44.9 Chronic obstructive pulmonary disease, unspecified (principal); F17.200 Nicotine dependence, unspecified, uncomplicated; C80.1 Malignant (primary) neoplasm, unspecified
CPT/HCPCS: 99213

== ENCOUNTER → 2023-04-30 10:46 | Outpatient (BNVA) | payer MEDICARE, SELFPAY | PROVIDERS: PCP Student in an Organized Health Care Education/Training Program; Visit Provider Internal Medicine | DX: J44.9 Chronic obstructive pulmonary disease, unspecified (principal); C34.11 Malignant neoplasm of upper lobe, right bronchus or lung; C79.31 Secondary malignant neoplasm of brain; F17.210 Nicotine dependence, cigarettes, uncomplicated | CPT/HCPCS: 99212 ==

== ENCOUNTER 2023-07-16 09:49 | Outpatient (AMB) | payer MEDICARE, SELFPAY ==
[2023-07-16 10:09] VITALS: BP 90/52; PULSE 80; O2SAT 99
--- NOTE | 2023-07-16 10:09 | MHC.OFFVIS ---
Intake Vital Signs 07/16/23 10:09 BP 90/52 L Blood Pressure Location Rt brachial Position Sitting Pulse 80 Pulse Source Pulse Oximeter Pulse Oximetry (%) 99 Oxygen Delivery Method Room Air Intake Visit Reasons: 6MW Allergies No Known Allergies [No Known Allergies*] Allergy (Verified 07/16/23 10:10) Medication List - Last Reconciled 07/16/23 by Gwendolyn Brown LPN albuterol sulfate 90 mcg/actuation (ProAir HFA) 2 puffs inhalation Q6H PRN alprazolam (Xanax) 0.25 mg PO BID PRN gemfibrozil 600 mg PO BID hydrochlorothiazide 25 mg PO BEDTIME hydrocodone-acetaminophen 5-325 mg 1 tab PO Q4-6H PRN ondansetron 8 mg PO Q8H pravastatin 20 mg PO BEDTIME PFSH Medical History Smoker COPD (chronic obstructive pulmonary disease) Diverticulosis Hypercholesteremia IBS (irritable bowel syndrome) HTN (hypertension) Surgical History Small cell carcinoma Hx of tonsillectomy Hx of appendectomy History of lumpectomy Lymphadenopathy, mediastinal Lung mass H/O colonoscopy Family History Sister Breast cancer Social History Household Members: None Housing: Apartment Do you presently have visiting nurse or other home services: No Patient Tobacco Use Status: Current everyday Tobacco user Tobacco use type: Cigarette Years Smoked: 45years e-Cigarette/Vaping Use: Never Used Second Hand Smoke Exposure: No service: No Current occupational status: retired Physical Exam Vital Signs: Last Vital Signs Pulse 80 07/16/23 10:09 BP 90/52 L 07/16/23 10:09 Pulse Ox 99 07/16/23 10:09 Oxygen Delivery Method Room Air 07/16/23 10:09 Office Procedures 6 Minute Walk Time:: 10:00 SPO2 % at rest: 99 Pulse at rest: 80 SPO2 % during excercise: 96 Pulse during excercise: 104 SPO2 % after excercise: 97 Pulse after excercise: 98 Distance in yards walked: 180 Kameron Score: 5 Performance Observations:: Janine walked on level ground without assistance, she walked on room air the entire walk. Janine maintained her SPO2 96-100%, no supplemental O2 needed. [id number] - 6 Minute Walk Assessment & Plan Assessment & Plan (1) COPD (chronic obstructive pulmonary disease): Comment: Code(s): J44.9 - Chronic obstructive pulmonary disease, unspecified Plan 6MWT Orders: Orders AMB 6 minute walk Today J44.9 - Chronic obstructive pulmonary disease, unspecified Coding Level of Care Code Established Pt Est Pt Level 1 (76282) Patient Type Established Diagnoses COPD (chronic obstructive pulmonary disease) J44.9 CPT Codes Coding ([id number]) Comment NURSE VISIT ONLY
[2023-07-16 10:11] VITALS: PULSE 80; O2SAT 99
== END 2023-07-16 10:05 | disposition home or self-care (01) ==
PROVIDERS: PCP Student in an Organized Health Care Education/Training Program; Visit Provider Hospitalist
DX: J44.9 Chronic obstructive pulmonary disease, unspecified (principal)
CPT/HCPCS: 94618

== ENCOUNTER → 2023-07-16 09:49 | Outpatient (BNVA) | payer MEDICARE, SELFPAY | PROVIDERS: PCP Student in an Organized Health Care Education/Training Program; Visit Provider Hospitalist | DX: J44.9 Chronic obstructive pulmonary disease, unspecified (principal) | CPT/HCPCS: 94618; 99211 ==

== ENCOUNTER 2023-07-22 08:08 | Outpatient (REF) | payer MEDICARE, OTHER, SELFPAY ==
--- NOTE | ~2023-07-22 | CT_ITS ---
EXAMINATION: CT CHEST WITH CONTRAST CLINICAL INFORMATION: Follow-up small cell lung carcinoma. COMPARISON: PET/CT dated January 22, 2023. Chest CT dated January 07, 2023. TECHNIQUE: Multidetector volumetric CT imaging of the chest was obtained after the administration of 65 mL of Omnipaque 350 intravenous contrast without immediate adverse reactions. Axial MIP volume rendering provided. Sagittal and coronal reformatted images were obtained. This CT examination was performed using dose optimization techniques as appropriate, variously including the following: *Automated exposure control *Adjustment of mA and/or kV according to patient size (this includes techniques or standardized protocols for targeted exams where dose is matched to indication/reason for exam; i.e. extremities or head) *Use of iterative reconstruction technique DLP: 117 mGy-cm FINDINGS: LUNGS: Decrease in size of spiculated right upper lobe lung mass with tendrils extending to the pleura. The mass currently measures approximately 2.5 x 1.7 cm in axial dimension (image 53, series 5), having measured up to approximately 4.7 x 3.8 cm on January 07, 2023, by my measurements. Approximately 0.7 x 0.5 cm left upper lobe nodule medially near the vertebral column (image 48, series 5), not grossly changed compared with January 07, 2023, by my measurements. No new lung nodule identified. Mild emphysema. MEDIASTINUM: A precarinal lymph node measures 0.6 cm in short axis (image 26, series 3), not significant changed compared with chest CT from January 07, 2023. This was hypermetabolic on PET CT from January 22, 2023. A 0.8 cm subcarinal node appears unchanged (image 29, series 3). A 0.9 cm right hilar node appears unchanged (image 28, series 3). Heart normal in size. No pericardial effusion. Uncoiled aorta, suggesting hypertension. Tip of right internal jugular chest port catheter in superior vena cava. CORONARY ARTERIAL CALCIFICATION: Severe. PLEURA: Trace bilateral pleural fluid, new. No pneumothorax. AXILLA: No lymphadenopathy by size criteria. UPPER ABDOMEN: No change in approximately 8.5 cm gastric fundal diverticulum containing debris. No evidence of associated inflammation. OSSEOUS STRUCTURES: No suspicious lytic or sclerotic bony lesion identified. Degenerative changes of the spine and right shoulder. CT/CT chest w IV con IMPRESSION: Decrease in size of spiculated right upper lobe lung mass compared with most recent prior chest CT dated January 07, 2023, as above. No change in approximately 0.7 x 0.5 cm left upper lobe nodule. Subcentimeter mediastinal and right hilar nodes, not significantly changed, as above. Trace bilateral pleural fluid, new. Additional findings, as above.
[2023-07-22] MEDS: iohexoL 350 MG/ML 100 ML INFUS..BTL 65 ML IV (09:07)
== END 2023-07-22 08:09 | disposition home or self-care (01) ==
LOC: HO.CT 08:08
PROVIDERS: PCP Student in an Organized Health Care Education/Training Program; Visit Provider Internal Medicine Medical Oncology
DX: C34.90 Malignant neoplasm of unspecified part of unspecified bronchus or lung (principal)
CPT/HCPCS: 71260; Q9967

== ENCOUNTER 2023-08-15 09:21 | Outpatient (AMB) | payer MEDICARE, MEDICAID, SELFPAY ==
--- NOTE | 2023-08-15 09:24 | MHC.OFFVIS ---
Intake Vital Signs 08/15/23 09:25 Height 5 ft 5 in Weight 134 lb 0.4 oz BMI 22.3 BP 118/60 Blood Pressure Location Lt brachial Position Sitting Pulse 62 Pulse Source Pulse Oximeter Pulse Oximetry (%) 97 Oxygen Delivery Method Room Air Intake Visit Reasons: COPD Intake Note: pt is here for follow up and feeling okay, still having chemo every other week, finished radiation in June, she is having pain on right side rib area between armpit. Rn Perioperative Required: No Allergies No Known Allergies [No Known Allergies*] Allergy (Verified 08/15/23 09:42) Medication List - Last Reconciled 08/15/23 by Janet Soliz MD albuterol sulfate 90 mcg/actuation (ProAir HFA) 2 puffs inhalation Q6H PRN alprazolam (Xanax) 0.25 mg PO BID PRN gemfibrozil 600 mg PO BID hydrochlorothiazide 25 mg PO BEDTIME hydrocodone-acetaminophen 5-325 mg 1 tab PO Q4-6H PRN levothyroxine (Synthroid) 75 mcg PO DAILY ondansetron 8 mg PO Q8H pravastatin 20 mg PO BEDTIME HPI COPD HPI Details 83 YEARS OLD VERY PLEASANT FEMALE WITH RECENT DIAGNOSIS OF SMALL CELL CARCINOMA RIGHT UPPER LOBE WITH POSITIVE LYMPH NODE BIOPSY.MRI SHOWING METS IN THE BRAIN. SHE HAS BEEN STARTED ON CHEMOTHERAPY, BY DR. SUMNER, AND HAS COMPLETED RADIATION THERAPY AT [facility] REMAINS IN [facility] SPIRITS. SHE HAS NO BREATHING ISSUES. SHE DOES USE OXYGEN AT NIGHT AND ALSO FOR A FEW HOURS IN THE AFTERNOONS. APPETITE IS POOR BUT SHE IS STILL EATING FAIRLY WELL. COMPLAINS OF MILD DENSE COMFORT OVER THE RIGHT LOWER COSTAL AREA, BUT IT IS NOT PLEURITIC.. [facility] Medical History (Updated 08/15/23 @ 09:49 by Janet Soliz MD) Hypoxemia Smoker COPD (chronic obstructive pulmonary disease) Diverticulosis Hypercholesteremia IBS (irritable bowel syndrome) HTN (hypertension) Surgical History (Updated 08/15/23 @ 09:47 by Janet Soliz MD) Small cell carcinoma Hx of tonsillectomy Hx of appendectomy History of lumpectomy Lymphadenopathy, mediastinal Lung mass H/O colonoscopy Family History Sister Breast cancer Social History Household Members: None Housing: Apartment Do you presently have visiting nurse or other home services: No Patient Tobacco Use Status: Current everyday Tobacco user Tobacco use type: Cigarette Cigarettes Per Day: 5 Years Smoked: 45years e-Cigarette/Vaping Use: Never Used Second Hand Smoke Exposure: No service: No Current occupational status: retired Review of Systems Const All systems reviewed & are unremarkable except as noted in HPI and below Eyes Reports no additional complaints ENT Reports no additional complaints Card Denies chest pain, Denies irregular heart rhythm and Denies leg edema Resp Reports as per HPI GI Reports no additional complaints Reports no additional complaints Musc Reports no additional complaints Skin/Breast Reports system reviewed and no additional complaints, except as documented Neuro Reports no additional complaints Psych Reports no additional complaints Physical Exam Vital Signs: Last Vital Signs Pulse 62 08/15/23 09:25 BP 118/60 08/15/23 09:25 Pulse Ox 97 08/15/23 09:25 Oxygen Delivery Method Room Air 08/15/23 09:25 BMI result Body Mass Index 22.3 Const General: healthy appearing, comfortable, no acute distress, alert and awake Orientation/consciousness: patient oriented x3 HEENT Head: Yes normal to inspection General nose exam: No nasal polyps present and No nasal discharge present Face and sinus: Yes sinuses nontender Mouth: oropharynx normal Throat: Yes posterior oropharynx normal Eyes General: appearance normal, both eyes and all related structures Neck Neck: Yes normal visual inspection, Yes no lymphadenopathy, Yes trachea midline and Yes no JVD Thyroid: Thyroid normal Chest Chest palpation & inspection: normal inspection of the chest, normal palpation of entire chest wall and no tenderness Resp Other: Percussion note hyper-resonant. Breath sounds are slightly distant with prolonged expiratory phase. No wheezes or rhonchi . No creps. Cardio Palpation: normal PMI Rate: regular rate Rhythm: regular rhythm Heart sounds: no gallops and no murmurs Peripheral pulses: Peripheral pulses 2+ throughout GI Palpation (GI): Soft to palpation, nontender, No hepatosplenomegaly present and no masses Auscultation: normal bowel sounds Back/Spine/Pelvis Thoracic/Lumbar Spine: thoracic and lumbar spine normal to inspection Skin General skin exam: no rashes or lesions noted Neuro General: patient oriented x3 and no focal motor deficits Cranial nerves: Yes CN's II-XII intact bilaterally Extrem General: Yes normal to inspection, Yes no clubbing, cyanosis or edema and Yes no calf tenderness Psych Appearance: grossly normal and well kempt Speech and movement: Normal speech and movement present Assessment & Plan Assessment & Plan (1) COPD (chronic obstructive pulmonary disease): Comment: COPD IS VERY STABLE SHE HAS NOT REQUIRING A MAINTENANCE INHALER. Code(s): J44.9 - Chronic obstructive pulmonary disease, unspecified Plan: CONTINUE ALBUTEROL HFA 2 PUFFS Q 6 HOURS ONLY P.R.N. (2) Smoker: Comment: SHE IS A LONG-TIME SMOKER, HAS REDUCED TO 5 CIGARETTES A DAY AND IS TRYING TO QUIT COMPLETELY. Code(s): F17.200 - Nicotine dependence, unspecified, uncomplicated Plan: ENCOURAGED TO QUIT SMOKING COMPLETELY (3) Small cell carcinoma: Comment: HAS A ROUNDED MASS IN RIGHT UPPER LOBE WITH MEDIASTINAL LYMPHADENOPATHY STRONGLY FDG ACTIVE. 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 MRI OF BRAIN IS POSITIVE FOR BRAIN METS. PATIENT IS UNDER CARE OF DR. HENRY SUMNER . CONTINUES ON CHEMOTHERAPY. ALSO HAS COMPLETED RADIATION THERAPY AT [facility]. Code(s): C80.1 - Malignant (primary) neoplasm, unspecified Plan: CONTINUE CHEMOTHERAPY PROGRAM (4) Hypoxemia: Comment: OVERNIGHT OXIMETRY RECORDING DID CONFIRM THAT SHE HAS NOCTURNAL HYPOXEMIA. Code(s): R09.02 - Hypoxemia Plan: ADVISED TO KEEP USING O2 2 L/MINUTE AT NIGHT AND ONLY P.R.N. DURING THE DAYTIME. Coding Level of Care Code Est Pt Level 3 (45918) Diagnoses COPD (chronic obstructive pulmonary disease) J44.9 Smoker F17.200 Small cell carcinoma C80.1 Hypoxemia R09.02
[2023-08-15 09:25] VITALS: BP 118/60; PULSE 62; O2SAT 97; BMI 22.3
== END 2023-08-15 09:42 | disposition home or self-care (01) ==
PROVIDERS: PCP Student in an Organized Health Care Education/Training Program; Visit Provider Internal Medicine
DX: J44.9 Chronic obstructive pulmonary disease, unspecified (principal); F17.200 Nicotine dependence, unspecified, uncomplicated; C80.1 Malignant (primary) neoplasm, unspecified; R09.02 Hypoxemia
CPT/HCPCS: 99213

== ENCOUNTER → 2023-08-15 09:21 | Outpatient (BNVA) | payer MEDICARE, OTHER, SELFPAY | PROVIDERS: PCP Student in an Organized Health Care Education/Training Program; Visit Provider Internal Medicine | DX: J44.9 Chronic obstructive pulmonary disease, unspecified (principal); C80.1 Malignant (primary) neoplasm, unspecified; R09.02 Hypoxemia; F17.210 Nicotine dependence, cigarettes, uncomplicated | CPT/HCPCS: 99212 ==

== ENCOUNTER 2023-09-07 09:27 | Inpatient (IN) | payer MEDICARE, OTHER, SELFPAY ==
[2023-09-07] VITALS (8 sets, daily range): BP systolic 84–132; BP diastolic 44–66; PULSE 66–83; RESP 15–20; TEMP 36.4–37.7; O2SAT 92–95; BMI 22.2; BMI 22.6
--- NOTE | ~2023-09-07 | XR_ITS ---
EXAMINATION: XR CHEST CLINICAL INFORMATION: Reason for Exam sob COMPARISON: Chest radiograph 04/05/2023 TECHNIQUE: One view of the chest FINDINGS: Lines and tubes: Right chest wall port catheter tip terminates overlying the upper SVC. EKG leads overlie the patient. Interval decrease in size of the previously seen right upper lobe mass which now demonstrates bandlike residual opacities. No new focal consolidation. No pleural effusion. No pneumothorax. Unchanged cardiomediastinal silhouette. XR/XR chest 1V IMPRESSION: Interval decrease in size of the previously seen right upper lobe mass which now demonstrates bandlike residual opacities. No new focal consolidation.
--- NOTE | ~2023-09-07 | XR_ITS ---
EXAMINATION: XR CHEST CLINICAL INFORMATION: Shortness of breath COMPARISON: Chest radiograph from 09/07/2023, CT chest from 07/22/2023 TECHNIQUE: Frontal view of the chest was obtained. FINDINGS: Right single lumen chest port with its distal tip terminating in the proximal SVC, accessed at the time of image acquisition, stable. Redemonstrated radiopacity involving the right upper lung field corresponding to previously identified right upper lobe mass. No pneumothorax. Trachea is midline. Cardiac mediastinal silhouette is stable. Aorta demonstrates atherosclerotic calcifications. No large pleural effusion. Degenerative changes of the thoracolumbar spine. 7 mm periarticular osteophyte along the lateral margin of the right acromioclavicular joint, stable. Soft tissues are unremarkable. XR/XR chest 1V IMPRESSION: 1. Right single lumen chest port with its distal tip terminating in the proximal SVC, accessed at the time of image acquisition, stable. 2. Redemonstrated radiopacity involving the right upper lung field corresponding to previously identified right upper lobe mass.
--- NOTE | ~2023-09-07 | CT_ITS ---
CT HEAD WITHOUT IV CONTRAST CT CERVICAL SPINE WITHOUT IV CONTRAST INDICATION: Fall. COMPARISON: Brain MRI 04/04/2023. TECHNIQUE: Multidetector CT acquisitions of the head and cervical spine were obtained without IV contrast. Multiplanar reformats were acquired and utilized for image interpretation. This CT examination was performed using dose optimization techniques as appropriate, variously including the following: *Automated exposure control *Adjustment of mA and/or kV according to patient size (this includes techniques or standardized protocols for targeted exams where dose is matched to indication/reason for exam; i.e. extremities or head) *Use of iterative reconstruction technique FINDINGS: HEAD: Known intracranial metastatic disease is better demonstrated on the prior MRI of the brain dated 04/04/2023. If there is any concern for progression, a repeat MRI of the brain would be advised. Stable chronic low attenuation within the right caudate. There is a 1.3 cm ossified extra-axial focus along the left parasylvian convexity that could reflect a meningioma or focal dural ossification. There is no intracranial hemorrhage, hydrocephalus, extra-axial surface collection, midline shift, or other herniation pattern. Vargas to white matter differentiation is diffusely maintained without evidence of an evolved acute territorial infarct. The basilar cisterns are preserved. No significant soft tissue abnormality. No acute osseous abnormality. The paranasal sinuses and the mastoid air cells are well aerated. CERVICAL SPINE: Cervical alignment is normal. The vertebral body heights are maintained. There are multilevel endplate osteophytes. There are no acute fractures and there are no acute subluxations. Craniocervical junction is unremarkable. Hypertrophic degenerative changes involving the atlantodental interval. There is no prevertebral soft tissue swelling. Atherosclerotic calcification involving the carotid bifurcations bilaterally. Right IJ Port-A-Cath. CT/CT cervical spine wo IV con IMPRESSION: - No intracranial hemorrhage. There is a 1.3 cm ossified extra-axial focus along the left parasylvian convexity that could reflect a meningioma or focal dural ossification. Known intracranial metastatic disease is better demonstrated on the prior MRI of the brain dated 04/04/2023. If there is any concern for progression, a repeat MRI of the brain would be advised. - No acute osseous abnormality within the cervical spine. Cervical spondylosis.
--- NOTE | 2023-09-07 09:37 | PC.NURSE ---
unable to obtain O2 sat in triage, Irma RN to assume care of pt, made aware O2 sat not reading in traige.
--- NOTE | 2023-09-07 09:43 | ECG_ITS ---
Test Reason : SOB Blood Pressure : / mmHG Vent. Rate : 071 BPM Atrial Rate : 071 BPM P-R Int : 152 ms QRS Dur : 068 ms QT Int : 424 ms P-R-T Axes : 071 050 079 degrees QTc Int : 460 ms Normal sinus rhythm Septal infarct , age undetermined Nonspecific ST abnormality Abnormal ECG When compared with ECG of 14-DEC-2021 12:56, Septal infarct is now Present Referred By: Leslie Hackett Electronically Signed By:SIS HULL MD
[2023-09-07] MEDS: 0.9 % Sodium Chloride 1,000 ML 999 ML IVCONT (10:19)
[2023-09-07 10:23] LABS: MANUAL DIFF FLAG NO
--- NOTE | 2023-09-07 10:31 | ED_ITS ---
HPI - General Adult General Chief complaint: Fall Stated complaint: fell 2 days ago Time Seen by Provider: 09/07/23 09:41 Source: patient and family (two daughter's at bedside) Mode of arrival: ambulatory Limitations: no limitations History of Present Illness HPI narrative: 83yoF with a PMHx of smoking, HTN. 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 Wolff has completed radiation therapy at [facility] presenting to the ED with daughters at bedside with complaints of generalized fatigue, malaise, decreased appetite, cough, chest congestion and she had a fall on with head injury with loss of consciousness. She has also had some increased urinary frequency and urgency. Her daughter's report that this all started around Saturday she was already not feeling well or not her normal self. Then on Saturday she received her pneumonia vaccine. Saturday she went to have chemotherapy and she was noted to have some ANA therefore they gave her some IV fluids. She was also started on Bactrim by Dr. Wolff for a UTI. She has started Bactrim yesterday only took 2 pills. Daughters are concerned due to she is having more generalized weakness and normal. Patient denies any fevers, chills, dizziness or headaches, neck pain or stiffness, trouble swallowing or breathing, hemoptysis, chest pain or shortness of breath, dyspnea on exertion orthopnea, palpitations or paresthesias, nausea vomiting or diarrhea, black or bloody stools, rashes, neck or back pain, extremity pain or swelling, rashes or any other symptoms complaints or concerns at this time MD complaint: Generalized weakness, fatigue, malaise, decreased appetite, cough, fall Onset (ago): day(s) (5) Related Data Home Medications Medication Instructions Recorded Confirmed gemfibrozil 600 mg tablet 600 mg PO BID 12/13/21 08/06/23 hydrochlorothiazide 25 mg tablet 25 mg PO BEDTIME 12/13/21 08/06/23 pravastatin 20 mg tablet 20 mg PO BEDTIME 12/13/21 08/06/23 albuterol sulfate 90 mcg/actuation 2 puff inhalation Q6H PRN 02/06/22 08/06/23 aerosol inhaler (ProAir HFA) shortness of breath or wheeze Previous Rx's Medication Instructions Recorded hydrocodone 5 mg-acetaminophen 325 1 tab PO Q4-6H PRN pain #30 tabs 04/05/23 mg tablet ondansetron 8 mg disintegrating 8 mg PO Q8H #60 tabs 04/09/23 tablet alprazolam 0.25 mg tablet (Xanax) 0.25 mg PO BID PRN Anxiety #30 tabs 05/11/23 levothyroxine 75 mcg tablet 75 mcg PO DAILY #30 tabs 08/06/23 (Synthroid) levothyroxine 88 mcg tablet 88 mcg PO DAILY #30 tabs 09/03/23 sulfamethoxazole 800 1 tab PO BID #14 tabs 09/06/23 mg-trimethoprim 160 mg tablet (Bactrim DS) Allergies Allergy/AdvReac Type Severity Reaction Status Date / Time No Known Allergies Allergy Verified 08/15/23 09:42 [No Known Allergies*] Review of Systems 2 Review of Systems: Constitutional : No Weight loss, No Fever, No Chills, No Night Sweats, + Fatigue, + Malaise ENT/Mouth : No Hearing loss, No Ear Pain, No Nasal Congestion, No Sinus Pain, No Hoarseness, No sore throat, No Rhinorrhea, No Swallowing Difficulty Eyes: No Eye Pain, No Swelling, No Redness, No Foreign Body, No Discharge, No Vision Changes Cardiovascular : No Chest Pain, No SOB, No Dyspnea on Exertion, No Orthopnea, No Edema, No Palpitations Respiratory : + Cough, + Sputum, No Wheezing, No Smoke Exposure, No Dyspnea Gastrointestinal : No Nausea, No Vomiting, No Diarrhea, No Constipation, No abdominal Pain, No Hematochezia, No Melena Genitourinary : no irregular bleeding, No Dysuria, No Urinary Frequency, No Hematuria, No Urinary Incontinence, No Urgency, No Flank Pain, No Urinary Flow Changes, No Hesitancy Musculoskeletal : No joint pain, No Myalgias, No Joint Swelling Skin : No Skin Lesions, No rash Neuro : + General Weakness, No Focal weakness, No Numbness, No Paresthesias, No Loss of Consciousness, No Dizziness, No Headache Psych : No Anxiety/Panic, No Depression, No SI/HI/AH/VH, No Social Issues, Heme/Lymph: No Bruising, No Bleeding,No Lymphadenopathy Endocrine : No Polyuria, No Polydipsia, No Temperature Intolerance Yes all other systems are reviewed and are negative [facility] Past Medical History Attestation statement: The following information was validated with the patient. Source: old records reviewed, obtained from family and nursing notes reviewed Medical History Hypoxemia Smoker COPD (chronic obstructive pulmonary disease) Diverticulosis Hypercholesteremia IBS (irritable bowel syndrome) HTN (hypertension) Surgical History Small cell carcinoma Hx of tonsillectomy Hx of appendectomy History of lumpectomy Lymphadenopathy, mediastinal Lung mass H/O colonoscopy Family History Family History Sister Breast cancer Social History Social History Household Members: None Housing: Apartment Do you presently have visiting nurse or other home services: No Patient Tobacco Use Status: Current everyday Tobacco user Tobacco use type: Cigarette Cigarettes Per Day: 5 Years Smoked: 45years Smoked in Last 30 Days: No e-Cigarette/Vaping Use: Never Used Second Hand Smoke Exposure: No Use of substances other than those prescribed or required for medical reasons: No Advance Directives: No Advance Directives Information Provided: No service: No Current occupational status: retired Physical Exam ED Vital Signs: Vital Signs - 24 hr 09/07/23 09:29 09/07/23 09:47 09/07/23 12:16 Temperature 97.6 F Pulse Rate 83 74 66 Respiratory Rate 16 15 Blood Pressure 84/44 L 95/52 L 109/60 Pulse Oximetry 92 Oxygen Delivery Method Room Air Room Air Room Air Oxygen Flow Rate 95 BMI result Body Mass Index 22.2 vital signs have been reviewed as normal and appeared to be correct. Blood pressure hypotensive at 84/44. Heart rate normal. Respiration rate normal. Temperature normal. Oxygen saturation normal. Appearance: Alert. Oriented X3. No acute distress. Head: Normal external exam. Normocephalic. Atraumatic. No Durand signs noted. No raccoon eyes noted Eyes: PERRLA. EOMI. Conjunctiva and sclera normal. Eyelids normal. ENT: EAC normal. TM's Normal. No septal hematoma noted. No hemotympanum noted. Pharynx normal. Uvula midline. Moist mucous membranes. No lesions/ulcerations or masses noted on the tongue. Normal voice. No trismus noted. No drooling noted. No muffled voice noted. Neck: Normal inspection. Neck supple. FROM. No adenopathy. Thyroid Normal. No tracheal deviation noted. No crepitus is noted. No meningeal signs. No neck mass noted. No signs of trauma noted. CVS: Normal heart rate and rhythm. Heart sound normal. Pulses normal throughout. No murmurs/rales/gallops. Respiratory: No respiratory distress. Painless inspiration. Decreased breath sounds with +mild wheezing and rhonchi. No rales noted. Chest nontender. No crepitus is noted. No signs of trauma noted. No accessory muscle usage noted or decreased air movement noted. No signs of trauma. Abdomen: Soft and nontender. Bowel sounds normal in all 4 quadrants. No distention noted. No organomegaly noted. No visible injury noted. Back: No CVA tenderness. Full range of motion noted. Nontender. No signs of trauma. Patient neuro intact bilaterally and distally on all 4 extremities. Patient's reflexes intact bilaterally and distally on all 4 extremities. No rashes/lesion/induration/fluctuance or signs of infection noted. Skin: Skin warm and dry. Normal skin color. Normal skin turgor. No rashes/lesions/lacerations noted. Extremities: No lower extremity edema. No calf tenderness is noted. Extremities exhibit normal range of motion and nontender. Neuro: Oriented X 3. No motor deficit. No sensory deficit. Reflexes normal. Normal steady gait. No focal neuro deficits noted. CN's II-XII intact bilaterally? Vascular: + radial pulses/+ 2 distal pedal pulses/+2 dorsalis pedis b/l. Normal cap refill. No cyanosis noted to upper extremity nails and lower extremity toes nails. Course Course Course Narrative: 83yoF with a PMHx of smoking, HTN. 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 Wolff has completed radiation therapy at [facility] presenting to the ED with daughters at bedside with complaints of generalized fatigue, malaise, decreased appetite, cough, chest congestion and she had a fall on with head injury with loss of consciousness. She is also currently on Bactrim for UTI started by Dr. Wolff yesterday. On exam patient is alert and oriented x3. Not in any acute distress. No focal deficits noted. Lungs with decreased breath sounds with expiratory wheezing with some rhonchi at the bases otherwise no rales. No lower extremity edema or calf tenderness. Abdomen is soft and nontender. There are no rashes noted. Differential diagnosis includes toxic metabolic etiologies such as electrolyte disturbances, hypoglycemia, uremia, acidosis state such as infection. H and P not consistent with encephalopathy, toxidrome so, intoxication, withdrawal, intracranial bleed or ischemic stroke, ACS. Plan: Labs, blood cultures, lactic acid, UA, CT scan of brain/cervical spine, chest x-ray, COVID/RSV/flu swab. Provide a L of IV fluids and re-evaluate Reevaluation(s) Reevaluation #1: Labs reviewed and patient has anemia her H&H on 09/02/2023 was 11.3 and 35.2 today it is 10.1 and 30.2. Cm 2.9 therefore 20 mEq of IV potassium ordered at this time. BUN/creatinine increasing patient's BUN and creatinine now is 32 and 1.78 this is worse when compared to 09/02/2023. Patient negative for COVID/RSV/flu. CT scan of brain/cervical spine revealed chronic changes no acute processes were noted. And chest x-ray revealed improvement no worsening changes. Therefore due to patient having a UTI being on Bactrim having hyponatremia, hypokalemia and ANA patient will need to be admitted. I discussed this case with the hospitalist Xin Keene who is a nurse practitioner who will admit at this time. Rocephin was also ordered at this time. Daughter and patient at bedside understand agree this plan Time: 13:01 Medications Administered Generic Name Dose Route Start Last Admin Trade Name Freq PRN Reason Stop Dose Admin Potassium Chloride 10 meq in 100 mls @ 100 mls/hr 09/07/23 11:15 09/07/23 12:13 Potassium Chloride/H20 IV 09/07/23 13:14 100 mls/hr Q1H WOODY Administration Discontinued Medications Generic Name Dose Route Start Last Admin Trade Name Freq PRN Reason Stop Dose Admin Sodium Chloride 1,000 mls @ 999 mls/hr 09/07/23 10:00 09/07/23 12:15 Ns IVCONT 09/07/23 11:00 Infused .Q1H1M WOODY Infusion Medical Decision Making Medical Decision Making MDM Narrative: see course Differential Diagnosis Differential Diagnoses: The differential diagnosis associated with the presentation includes see course Admission/Observation Consideration of admission/observation: Escalation of care including admission/observation considered Consult Healthcare Provider Management of the patient was discussed with: Hospitalist Lab Data MDM Lab Attestation statement: I reviewed the patient's lab results. 09/07/23 10:13 09/07/23 10:13 Labs: Lab Results 09/07/23 Range/Units 10:13 WBC 9.9 (4.8-10.8) X10*3/uL RBC 2.68 L (4.20-5.50) X10*6/uL Hgb 10.1 L (12.0-16.0) g/dl Hct 30.2 L (37.0-47.0) % MCV 112.7 H D (80.0-98.0) fL MCH 37.7 H (27.0-33.0) pg MCHC 33.4 (31.0-35.0) g/dl RDW 15.2 (11.0-16.0) % Plt Count 135 L D (160-400) X10*3/uL MPV 10.1 (9.4-12.3) fL Immature Gran % (Auto) 0.7 H (0.0-0.4) % Neut % (Auto) 81.0 H (45-73) % Lymph % (Auto) 6.5 L (20-40) % [place] % (Auto) 9.5 (2-11) % Eos % (Auto) 1.9 (0-4) % Baso % (Auto) 0.4 (0-2) % Lymph # (Auto) 0.6 L (1.2-4.9) X10*3/uL [place] # (Auto) 0.9 (0.1-1.2) X10*3/uL Eos # (Auto) 0.2 (0.0-0.4) X10*3/uL Baso # (Auto) 0.0 (0.0-0.2) X10*3/uL Abs Immat Gran (auto) 0.07 H (0.00-0.03) X10*3/uL Absolute Neuts (auto) 8.0 (2.0-8.3) x10*3/uL Absolute Nucleated RBC 0.000 (0.0-0.012) X10*3/uL Nucleated RBC % (auto) 0.0 (0.0-0.2) /100WBC PT 11.4 (11.1-13.3) SEC INR 0.9 (0.9-1.1) Sodium 136 (135-145) mmol/L Potassium 2.9 L* D (3.3-5.1) mmol/L Chloride 99 (96-108) mmol/L Carbon Dioxide 27 (22-29) mmol/L Anion Gap 13 (12-20) BUN 32 H (9-16) mg/dL Creatinine 1.78 H (0.5-1.4) mg/dL Estim Creat Clear Calc 21.8 Estimated GFR 27 Random Glucose 102 (60-115) mg/dL Lactic Acid 1.3 (0.5-2.0) mmol/L Calcium 9.0 D (8.4-10.2) mg/dL Magnesium 2.1 (1.6-2.6) mg/dL Total Bilirubin 0.3 (0.0-1.0) mg/dL AST 13 (5-31) U/L ALT 7 (0-31) U/L Alkaline Phosphatase 62 (39-117) U/L Troponin I High Sens 5.3 (<3.5-17.0) ng/L Total Protein 6.9 (6.5-8.0) g/dL Albumin 3.7 (3.5-5.0) g/dL Influenza Type A (PCR) NEGATIVE (Negative) Influenza Type B (PCR) NEGATIVE (Negative) RSV RNA Qual (PCR) NEGATIVE (Negative) SARS-CoV-2 RNA (RT-PCR) NEGATIVE (Negative) Independent Interpretation I performed an independent interpretation of an: EKG and CT Scan (CT scan reviewed by myself this is my independent interpretation agreeable with rash report) Radiology Impression Discussion of test interpretation with radiology: I have reviewed the radiologist's reading. Radiologist Impression: FINDINGS: Lines and tubes: Right chest wall port catheter tip terminates overlying the upper SVC. EKG leads overlie the patient. Interval decrease in size of the previously seen right upper lobe mass which now demonstrates bandlike residual opacities. No new focal consolidation. No pleural effusion. No pneumothorax. Unchanged cardiomediastinal silhouette. XR/XR chest 1V IMPRESSION: Interval decrease in size of the previously seen right upper lobe mass which now demonstrates bandlike residual opacities. No new focal consolidation. FINDINGS: HEAD: Known intracranial metastatic disease is better demonstrated on the prior MRI of the brain dated 04/04/2023. If there is any concern for progression, a repeat MRI of the brain would be advised. Stable chronic low attenuation within the right caudate. There is a 1.3 cm ossified extra-axial focus along the left parasylvian convexity that could reflect a meningioma or focal dural ossification. There is no intracranial hemorrhage, hydrocephalus, extra-axial surface collection, midline shift, or other herniation pattern. Vargas to white matter differentiation is diffusely maintained without evidence of an evolved acute territorial infarct. The basilar cisterns are preserved. No significant soft tissue abnormality. No acute osseous abnormality. The paranasal sinuses and the mastoid air cells are well aerated. CERVICAL SPINE: Cervical alignment is normal. The vertebral body heights are maintained. There are multilevel endplate osteophytes. There are no acute fractures and there are no acute subluxations. Craniocervical junction is unremarkable. Hypertrophic degenerative changes involving the atlantodental interval. There is no prevertebral soft tissue swelling. Atherosclerotic calcification involving the carotid bifurcations bilaterally. Right IJ Port-A-Cath. CT/CT head/brain wo IV con IMPRESSION: - No intracranial hemorrhage. There is a 1.3 cm ossified extra-axial focus along the left parasylvian convexity that could reflect a meningioma or focal dural ossification. Known intracranial metastatic disease is better demonstrated on the prior MRI of the brain dated 04/04/2023. If there is any concern for progression, a repeat MRI of the brain would be advised. - No acute osseous abnormality within the cervical spine. Cervical spondylosis. Independent Historian Clinical information obtained from an independent historian. History obtained from or confirmed by: Other (Patient, medical records, nurse's no and both daughters at bedside) External Record Review External record reviewed: Inpatient record, Office record, Outpatient record, Prior outpatient labs, Prior outpatient radiology, Primary care record and Outside ED record All prior labs/imaging/EKG and notes that are accessible in our system reviewed by myself Prescription Management I considered prescription management with: Antibiotic Chronic Conditions Patient?s care impacted by: Cancer Social Determinants Patient?s care significantly limited by Social Determinants of Health including: Other Social Determinant of Health Critical Care Time Critical Care Time Critical Care Time: Yes Total Critical Care Time: 60 Attestation: I personally attest to this time spent taking care of the patient Discharge Plan Discharge Clinical Impression: General weakness, Acute hypokalemia, Anemia, ANA (acute kidney injury), Acute hypotension, Syncope, UTI (urinary tract infection) Patient Disposition: Admitted As Inpatient Prescriptions: No Action levothyroxine 88 mcg Tablet 88 mcg PO DAILY Qty: 30 3RF sulfamethoxazole-trimethoprim [Bactrim DS] 800-160 mg Tablet 1 tab PO BID Qty: 14 2RF gemfibrozil 600 mg Tablet 600 mg PO BID hydrochlorothiazide 25 mg Tablet 25 mg PO BEDTIME pravastatin 20 mg Tablet 20 mg PO BEDTIME hydrocodone-acetaminophen 5-325 mg tablet 1 tab PO Q4-6H PRN (Reason: pain) Qty: 30 0RF Rx Instructions: Partial Fill upon patient request. ondansetron 8 mg Tablet,Disintegrating 8 mg PO Q8H Qty: 60 3RF alprazolam [Xanax] 0.25 mg Tablet 0.25 mg PO BID PRN (Reason: Anxiety) Qty: 30 0RF levothyroxine [Synthroid] 75 mcg Tablet 75 mcg PO DAILY Qty: 30 3RF albuterol sulfate [ProAir HFA] 90 mcg/actuation HFA aerosol inhaler 2 puff inhalation Q6H PRN (Reason: shortness of breath or wheeze)
--- NOTE | 2023-09-07 10:34 | PC.NURSE ---
Patient resting quietly on stretcher at this time, R chest port accessed, labs drawn from port, patient to CT scan at this time.
[2023-09-07 10:38] LABS: Basophils Percent Auto 0.4 % (0-2); Eosinophils Absolute Auto 0.2 X10*3/uL (0.0-0.4); Eosinophils Percent Auto 1.9 % (0-4); Hematocrit 30.2 % (37.0-47.0); Hemoglobin 10.1 g/dl (12.0-16.0); Imm Gran Abs Auto 0.07 X10*3/uL (0.00-0.03); Imm Gran Pct Auto 0.7 % (0.0-0.4); Lymphocytes Absolute Auto 0.6 X10*3/uL (1.2-4.9); Lymphocytes Percent Auto 6.5 % (20-40); Mean Corpuscular HGB Conc 33.4 g/dl (31.0-35.0); Mean Corpuscular Hemoglobin 37.7 pg (27.0-33.0); Mean Platelet Volume 10.1 fL (9.4-12.3); Monocytes Absolute Auto 0.9 X10*3/uL (0.1-1.2); Monocytes Percent Auto 9.5 % (2-11); Platelet Count 135 X10*3/uL (160-400); Red Blood Count 2.68 X10*6/uL (4.20-5.50); Red Cell Distribution Width 15.2 % (11.0-16.0); White Blood Count 9.9 X10*3/uL (4.8-10.8)
[2023-09-07 10:41] LABS: Mean Corpuscular Volume 112.7 fL (80.0-98.0)
[2023-09-07 10:44] LABS: Lactic Acid 1.3 mmol/L (0.5-2.0)
[2023-09-07 10:47] LABS: INTERNATIONAL NORM RATIO 0.9 (0.9-1.1); Prothrombin Time 11.4 SEC (11.1-13.3)
[2023-09-07 10:57] LABS: Troponin-I High Sensitivity 5.3 ng/L (<3.5-17.0)
[2023-09-07 11:03] LABS: Alanine Aminotransferase 7 U/L (0-31); Albumin Level 3.7 g/dL (3.5-5.0); Alkaline Phosphatase 62 U/L (39-117); Anion Gap 13 (12-20); Aspartate Amino Transferase 13 U/L (5-31); Bilirubin Total 0.3 mg/dL (0.0-1.0); Blood Urea Nitrogen 32 mg/dL (9-16); Carbon Dioxide 27 mmol/L (22-29); Chloride 99 mmol/L (96-108); Creatinine Clr Calc Pharmacy 21.8; Estimated Glomerular Filt Rate 27; Glucose Random 102 mg/dL (60-115); Magnesium 2.1 mg/dL (1.6-2.6); Potassium 2.9 mmol/L (3.3-5.1); Sodium 136 mmol/L (135-145); Total Protein 6.9 g/dL (6.5-8.0)
[2023-09-07] MEDS: Potassium Chloride/H20 10 MEQ/100 ML PIGGYBACK 100 MEQ IV ×2 (11:15→12:13)
[2023-09-07 12:17] LABS: Influenza A PCR NEGATIVE (Negative); Influenza B PCR NEGATIVE (Negative); Resp Syncy Virus RNA Qual PCR NEGATIVE (Negative); SARS COV2 PCR INHOUSE NEGATIVE (Negative)
--- NOTE | 2023-09-07 13:13 | PM.IMHP ---
History of Present Illness Date of Service: 09/07/23 Chief Complaint: Fall 83 year old women with HTN. HLD, h/o recurrent PNA, recent dx of small cell carcinoma and COPD. current everyday smoker. 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 Wolff has completed radiation therapy at [facility]. She presented with generalized fatigue, malaise, decreased appetite, cough, chest congestion and a fall on with head injury and loss of consciousness. She has also had some increased urinary frequency and urgency. Her daughter's report that this all started around Saturday she was already not feeling well or not her normal self. On Saturday she received her pneumonia vaccine. Saturday she went to have chemotherapy and she was noted to have some ANA therefore they gave her some IV fluids. She was also started on Bactrim by Dr. Wolff for a UTI but only took 2 pills. Patient denied fever, chills, nausea, vomiting, diarrhea, recent illness, sick contacts, chest pain, shortness for breath. Cervical spine and head CT negative for any acute abnormality. Chest x-ray showing interval decrease in size of the previously seen right upper lobe mass which now demonstrates bandlike residual opacities with no new focal consolidation. Potassium noted to be 2.9, creatinine 1.78, positive UA, low blood pressure reading of 84/44, patient given IV fluids as well as IV potassium, Rocephin. Patient will be admitted for further management and treatment of UTI, hyperkalemia, fall and ANA. Review of Systems Review of Systems: Denies any recent fever chills or decrease in appetite respiratory denies any shortness of breath coverage production cardiovascular is adjustment of any PND or edema gastrointestinal denies any dysphagia abdominal pain nausea vomiting or diarrhea genitourinary denies any dysuria frequency or hematuria musculoskeletal denies any joint pain or swelling neuropsych denies any weakness or seizures all other systems reviewed are negative COUNT INCLUDES THE [facility] Medical History (Updated 09/07/23 @ 14:19 by Xin Keene NP) Hypoxemia Smoker COPD (chronic obstructive pulmonary disease) Diverticulosis Hypercholesteremia IBS (irritable bowel syndrome) HTN (hypertension) Family History Sister Breast cancer Surgical History (Updated 09/07/23 @ 14:37 by Xin Keene NP) Small cell carcinoma Hx of tonsillectomy Hx of appendectomy History of lumpectomy Lymphadenopathy, mediastinal Lung mass H/O colonoscopy Social History Household Members: None Housing: Apartment Do you presently have visiting nurse or other home services: No Patient Tobacco Use Status: Never used Tobacco Tobacco use type: Cigarette Years Smoked: 45years Smoked in Last 30 Days: No e-Cigarette/Vaping Use: Never Used Second Hand Smoke Exposure: No Use of substances other than those prescribed or required for medical reasons: No Advance Directives: No Advance Directives Information Provided: No Nutrition Risks: Poor intake 0-25% >4 days Patient : No service: No Current occupational status: retired [employer] Allergies Allergy/AdvReac Type Severity Reaction Status Date / Time No Known Allergies Allergy Verified 08/15/23 09:42 [No Known Allergies*] Active Medications: Current Medications Acetaminophen (Acetaminophen 325 Mg Tablet) 650 mg PO Q6H PRN PRN Reason: Pain, Mild (Pain Scale 1-3) Heparin Sodium (Porcine) (Heparin Sodium,Porcine 5,000 Unit/Ml Vial) 5,000 unit SUBCUT Q12H WOODY Potassium Chloride (Potassium Chloride/H20) 10 meq in 100 mls @ 100 mls/hr IV Q1H WOODY Stop: 09/07/23 13:14 Last Admin: 09/07/23 12:13 Dose: 100 mls/hr Ceftriaxone Sodium 2 gm/ (Sodium Chloride) 50 mls @ 100 mls/hr IV ONCE ONE Stop: 09/07/23 13:29 Ceftriaxone Sodium 1 gm/ (Sodium Chloride) 50 mls @ 100 mls/hr IV Q24H WOODY Ondansetron HCl (Ondansetron Hcl 4 Mg/2 Ml Vial) 4 mg IVPUSH Q8H PRN PRN Reason: Nausea and Vomiting Sodium Chloride (0.9 % Sodium Chloride Flush 3 Ml Syringe) 3 ml IVFLUSH QSHIFT [facility] Home Medications Medication Instructions Recorded Confirmed Last Taken Type gemfibrozil 600 mg tablet 600 mg PO BID 12/13/21 09/07/23 12/12/21 History hydrochlorothiazide 25 mg tablet 25 mg PO BEDTIME 12/13/21 09/07/23 12/12/21 History pravastatin 20 mg tablet 20 mg PO BEDTIME 12/13/21 09/07/23 12/12/21 History albuterol sulfate 90 mcg/actuation 2 puff inhalation Q6H PRN 02/06/22 09/07/23 Unknown History aerosol inhaler (ProAir HFA) shortness of breath or wheeze ondansetron 8 mg disintegrating 8 mg PO Q8H PRN Nausea 09/07/23 09/07/23 Unknown History tablet propylene glycol 0.6 % eye drops 1 drp ophthalmic (eye) DAILY PRN 09/07/23 09/07/23 Unknown History (Systane Complete) Dry Eyes Physical Exam Vital Signs and Narrative: Vital Signs: Last Vital Signs Temp 97.6 F 09/07/23 09:29 Pulse 66 09/07/23 12:16 Resp 15 09/07/23 12:16 BP 109/60 09/07/23 12:16 Pulse Ox 92 09/07/23 12:16 O2 Del Method Room Air 09/07/23 12:16 O2 Flow Rate 95 09/07/23 09:47 BMI result Body Mass Index 22.2 Appearing in no acute distress head is normocephalic atraumatic eyes pupils are PERRLA sclera is anicteric mouth throat mucous membranes are intact and moist neck is supple no lymphadenopathy, no JVD noted lung sounds are clear to auscultation heart regular rate rhythm, clear S1, S2 positive bowel sounds, abdomen is soft, nontender neuro patient is alert x3, no focal deficits Results Labs 09/07/23 10:13 09/07/23 10:13 Labs: Laboratory Results - last 24 hr 09/07/23 10:13 MCV 112.7 H D MCH 37.7 H MCHC 33.4 RDW 15.2 Plt Count 135 L D MPV 10.1 Immature Gran % (Auto) 0.7 H Neut % (Auto) 81.0 H Lymph % (Auto) 6.5 L [place] % (Auto) 9.5 Eos % (Auto) 1.9 Baso % (Auto) 0.4 Lymph # (Auto) 0.6 L [place] # (Auto) 0.9 Eos # (Auto) 0.2 Baso # (Auto) 0.0 Abs Immat Gran (auto) 0.07 H Absolute Neuts (auto) 8.0 Absolute Nucleated RBC 0.000 Nucleated RBC % (auto) 0.0 PT 11.4 INR 0.9 Anion Gap 13 Estim Creat Clear Calc 21.8 Estimated GFR 27 Random Glucose 102 Lactic Acid 1.3 Calcium 9.0 D Magnesium 2.1 Total Bilirubin 0.3 AST 13 ALT 7 Alkaline Phosphatase 62 Troponin I High Sens 5.3 Total Protein 6.9 Albumin 3.7 Influenza Type A (PCR) NEGATIVE Influenza Type B (PCR) NEGATIVE RSV RNA Qual (PCR) NEGATIVE SARS-CoV-2 RNA (RT-PCR) NEGATIVE Imaging Radiologist's Impressions: Impressions Cervical Spine CT 09/07/23 10:51 IMPRESSION: - No intracranial hemorrhage. There is a 1.3 cm ossified extra-axial focus along the left parasylvian convexity that could reflect a meningioma or focal dural ossification. Known intracranial metastatic disease is better demonstrated on the prior MRI of the brain dated 04/04/2023. If there is any concern for progression, a repeat MRI of the brain would be advised. - No acute osseous abnormality within the cervical spine. Cervical spondylosis. Head CT 09/07/23 10:51 IMPRESSION: - No intracranial hemorrhage. There is a 1.3 cm ossified extra-axial focus along the left parasylvian convexity that could reflect a meningioma or focal dural ossification. Known intracranial metastatic disease is better demonstrated on the prior MRI of the brain dated 04/04/2023. If there is any concern for progression, a repeat MRI of the brain would be advised. - No acute osseous abnormality within the cervical spine. Cervical spondylosis. Chest X-Ray 09/07/23 10:55 IMPRESSION: Interval decrease in size of the previously seen right upper lobe mass which now demonstrates bandlike residual opacities. No new focal consolidation. Assessment and Plan (1) Small cell carcinoma: Status: Acute (2) UTI (urinary tract infection): Status: Acute Plan 83 year old women admitted with UTI, ANA after a fall at home ANA Likely from dehydration and use of bactrim IV fluids follow BMP closely avoid nephrotoxins UTI Positive ua from 09/06/23 start Rocephin follow urine cx Hypokalemia likely secondary to dehydration replete with IV and po potassium follow BMP closely Fall likely multifactorial, fall, UTI, dehydration treat above Small cell carcinoma current treatment with [facility] oncology COPD no exacerbation continue home albuterol mental health continue home medications Hypothyroidism TSH >100 recently increased levothyroxine to 88mcg, continue Smoker NRT discussed the importance of smoking cessation HLD hold statin for now DVT prophlaxis with Heparin Full code patient will need at least 48 hours admission for tx of acute ana, UTI and hyppokalemia from dehydration requiring close telemetry monitoring and possible specialty consultation. Given her dx of small cell carcinoma she could decompensate quickly at a lesser acute setting Quality Stroke Does the patient have a stroke diagnosis?: No VTE Prior VTE?: No VTE Risk Level:: Medical - moderate - high VTE Device Contraindication: Treatment Not Indicated VTE Drug Contraindication: N/A - Med Ordered
[2023-09-07] MEDS: Potassium Chloride ER 20 MEQ TAB.ER.PRT 40 MEQ PO (13:14)
[2023-09-07] MEDS: cefTRIAXone sodium 2 GM in 0.9 % Sodium Chloride 50 ML IV (13:14)
--- NOTE | 2023-09-07 13:24 | PHA.MEDREC ---
Pharmacy Consult ? Medication Reconciliation Pharmacy has completed the medication reconciliation. spoke with family member at bedside who had a list on her phone. She reports that the patient restarted her levothyroxine 75mcg 4 days ago and explained they were given an increase in dose (88mcg) but family member is keeping her on 75mcg because patient was not taking it every day and thinks that is why her labs came back abnormal. Family member reports that the patient last took Bactrim around 8AM this morning.
--- NOTE | 2023-09-07 13:36 | PM.HEMONCCN ---
Subjective - Subjective Chief complaint: Consult for: Small cell carcinoma of the lung. Status post fall. 2. UTI. Patient: known to practice within the last 3 years Consult date: 09/07/23 Requesting Physician: Bisi. Primary Care Provider: Sarah Mathews MD Medical Summary: DIAGNOSIS: SMALL CELL CARCINOMA OF THE LUNG. CURRENT THERAPY: Received cycle 1 of Carbo/etoposide and atezolizumab on 04/15. Had cycle 2 on 05/06. Cycle 3 on 05/27. Cycle 4 on 06/19. On maintenance atezolizumab started on 07/09. Had cycle 8 on 08/20. HPI - Consult Narrative Reason for consult: Consult for: Small cell carcinoma of the lung, failure to thrive. UTI Narrative: Janine Felder is a 83 year old lady with history of small-cell carcinoma of the lung on immunotherapy. She presented to the ED with complaints of generalized fatigue, malaise, decreased appetite, cough, chest congestion. She had a fall on with no head injury and no loss of consciousness. She has also had some increased urinary frequency and urgency. On Saturday she received her pneumonia vaccine. After that, she was not feeling well and not her normal self. Saturday she went to have chemotherapy, she did not eat well Saturday or Saturday. She was noted to have some ANA therefore recieved some IV fluids. She had increased frequency of micturition. , upon walking from the kitchen to the living room, she she felt woozy and fell. She had a low-grade fever 99 degrees. aDaughter noted her face looked flushed. She was rather drowsy. Saturday she came in to Oncology. Had a urine test which came back positive for UTI. I gave her a script for Bactrim. She has started it yesterday only took 2 pills. She has had more generalized weakness. ROS: Generalized weakness, fatigue, malaise, decreased appetite, , fall. Patient denies any fevers, chills. Appetite there is no problem. She did lose a few lb. Denies headache no dizziness. She has a cough. No chest pain or trouble breathing. No hemoptysis, dyspnea on exertion orthopnea, palpitations. Denies abdominal pain nausea vomiting heartburn indigestion, trouble swallowing or diarrhea, black or bloody stools. Bowels are working without any gross blood in it. She had a colonoscopy a long time ago. No dysuria or hematuria. No joint pain muscle pain. No focal weakness. Denies depression. No skin rashes or pruritus PRESENTING HISTORY: She was referred by Dr. Soliz account of recent diagnosis of small cell carcinoma of the lung. Patient describes that a couple of years ago she came down with pneumonia and RSV infection. She was admitted at that time. Subsequently she has been followed by Pulmonary every [address] scan of the chest from 01/16 revealed: 3 x 4 cm right upper lobe mass suspicious for neoplasm. PET/CT scan or tissue sampling recommended. Emphysema. Small pulmonary nodules. Severe coronary artery calcification. 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 Dedicated abdominal aorta ultrasound recommended. PET SCAN from 01/23 revealed: 1. An intensely FDG avid right upper lobe mass is most likely malignant. 2. A right lower paratracheal lymph node is FDG avid and likely a metastasis. 3. Additional subcentimeter pulmonary nodules are present, several of these better visualized on the 01/07/[address] scan and all too small to be characterized on the FDG PET images. 4. No additional abnormalities suspicious for other metastatic or malignant lesions are noted. 5. 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 6. Diffuse vascular calcifications including dense coronary calcifications. PATHOLOGY from 03/18 revealed: POSITIVE FOR MALIGNANCY, CONSISTENT WITH SMALL CELL CARCINOMA. She received radiation therapy between 05/29/23 and mid June. It had to be interrupted due to the leukopenia, for a week. Medical History: History of breast cancer: 20 years ago. She says she had a lumpectomy and was not tamoxifen for 5 years. She does not remember which hospital in [place]. COPD (chronic obstructive pulmonary disease) Diverticulosis HTN (hypertension) Hypercholesteremia IBS (irritable bowel syndrome) Small cell carcinoma Smoker Surgical History: H/O colonoscopy History of lumpectomy Hx of appendectomy Hx of tonsillectomy Lung mass Lymphadenopathy, mediastinal Family History: Sister with Breast cancer. A sister has lung cancer. Social History: She previously worked for [employer], in a good firm. Then for [employer]. She worked as a [employer]. 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 She is . She has 4 daughters. She started smoking in her 20s. She smoked a pack a day, Living Situation History: Household Members: None Housing: Apartment Do you presently have visiting nurse or other home services: No Alcohol History Details: 1. How often do you have a drink containing alcohol?: a. Never Tobacco History: Patient Tobacco Use Status: Current everyday Tobacco Tobacco use type: Cigarette Years Smoked: 45years Review of Systems - Constitutional Reports system reviewed and no additional complaints, except as documented, Reports weakness, Reports weight loss, Denies fever(s) - Eyes Reports system reviewed and no additional complaints, except as documented - ENT Reports system reviewed and no additional complaints, except as documented - Cardiovascular Reports system reviewed and no additional complaints, except as documented - Respiratory Reports no additional respiratory complaints - Gastrointestinal Reports system reviewed and no additional complaints, except as documented - Genitourinary Reports no additional female genitourinary complaints - Musculoskeletal Reports system reviewed and no additional complaints, except as documented - Integumentary/Breasts Skin/Breast: Reports no additional skin complaints - Neurologic Reports system reviewed and no additional complaints, except as documented - Psychiatric Reports system reviewed and no additional complaints, except as documented - Endocrine Reports no additional endocrine complaints - Hematologic/Lymphatic Reports system reviewed and no additional complaints, except as documented - Allergic/Immunologic Reports system reviewed and no additional complaints, except as documented Oncology Screenings - ECOG Performance Status ECOG Performance Status: 2 [facility] Medical History: Medical History (Last Updated 09/07/23 @ 14:19 by Xin Keene NP) COPD (chronic obstructive pulmonary disease) Diverticulosis HTN (hypertension) Hypercholesteremia Hypoxemia IBS (irritable bowel syndrome) Smoker Functional capacity: wheelchair bound Patient : No Family History: Family History (Last Reviewed 09/07/23 @ 10:55 by MACIE Alvarez) Sister Breast cancer Surgical History: Surgical History (Last Updated 09/07/23 @ 14:37 by Xin Keene NP) H/O colonoscopy History of lumpectomy Hx of appendectomy Hx of tonsillectomy Lung mass Lymphadenopathy, mediastinal Small cell carcinoma Social History: Social History (Last Reviewed 09/07/23 @ 10:55 by MACIE Alvarez) Living Situation History: Household Members: None Housing: Apartment Do you presently have visiting nurse or other home services: No Tobacco History: Patient Tobacco Use Status: Never used Tobacco Tobacco use type: Cigarette Years Smoked: 45years e-Cigarette/Vaping Use: Currently Using Second Hand Smoke Exposure: No Occupation Assessmet: service: No Current occupational status: retired Home Medications and Allergies Current Medications: Current Medications Acetaminophen (Acetaminophen 325 Mg Tablet) 650 mg PO Q6H PRN PRN Reason: Pain, Mild (Pain Scale 1-3) Heparin Sodium (Porcine) (Heparin Sodium,Porcine 5,000 Unit/Ml Vial) 5,000 unit SUBCUT Q12H WOODY Ceftriaxone Sodium 1 gm/ (Sodium Chloride) 50 mls @ 100 mls/hr IV Q24H WOODY Sodium Chloride (Ns) 1,000 mls @ 100 mls/hr IVCONT .Q10H WOODY Ondansetron HCl (Ondansetron Hcl 4 Mg/2 Ml Vial) 4 mg IVPUSH Q8H PRN PRN Reason: Nausea and Vomiting Sodium Chloride (0.9 % Sodium Chloride Flush 3 Ml Syringe) 3 ml IVFLUSH QSHIFT WOODY Home Medications Medication Instructions Recorded Confirmed Type gemfibrozil 600 mg tablet 600 mg PO BID 12/13/21 09/07/23 History hydrochlorothiazide 25 mg tablet 25 mg PO BEDTIME 12/13/21 09/07/23 History pravastatin 20 mg tablet 20 mg PO BEDTIME 12/13/21 09/07/23 History albuterol sulfate 90 mcg/actuation 2 puff inhalation Q6H PRN 02/06/22 09/07/23 History aerosol inhaler (ProAir HFA) shortness of breath or wheeze ondansetron 8 mg disintegrating 8 mg PO Q8H PRN Nausea 09/07/23 09/07/23 History tablet propylene glycol 0.6 % eye drops 1 drp ophthalmic (eye) DAILY PRN 09/07/23 09/07/23 History (Systane Complete) Dry Eyes Allergies Allergy/AdvReac Type Severity Reaction Status Date / Time No Known Allergies Allergy Verified 08/15/23 09:42 [No Known Allergies*] Physical Exam Vital signs: Vital Signs Temp 97.6 F 09/07/23 09:29 Pulse 66 09/07/23 12:16 Resp 15 09/07/23 12:16 BP 109/60 09/07/23 12:16 Pulse Ox 92 09/07/23 12:16 O2 Del Method Room Air 09/07/23 12:16 O2 Flow Rate 95 09/07/23 09:47 Intake & Output 09/06/23 09/07/23 09/07/23 18:59 06:59 18:59 Intake Total 1196.667 / 1196.667 Balance 1196.667 / 1196.667 Intake: Intake, IV Amount 1196.667 / 1196.667 Potassium Chloride/H20 10 meq 196.667 / 196.667 In 100 ml @ 100 mls/hr IV Q1H WOODY Rx#:[id number] 0.9 % Sodium Chloride 1,000 ml 1000 / 1000 @ 999 mls/hr IVCONT .Q1H1M WOODY Rx#:[id number] Other: Weight 60.6 kg Weight 60.6 kg - Constitutional Present: mild distress - Routine HEENT Exam Head: Present: normocephalic Eye: Present: normal appearance ENT: Present: mucous membranes moist - Routine Neck Exam Present: supple - Routine Respiratory Exam Present: decreased breath sounds - Routine Cardiovascular Exam Cardiovascular: Present: S1, S2 - Routine Abdominal Exam Present: normal bowel sounds, nontender - Routine Extremities Exam Present: nontender - Routine Skin Exam Present: intact - Routine Neurological Exam Present: alert, moving all extremities, normal speech Hem/Onc Consult Result - Labs CBC & Chem 7: 09/08/23 06:14 09/09/23 08:26 Labs: Short CBC 09/07/23 Range/Units 10:13 WBC 9.9 (4.8-10.8) X10*3/uL Hgb 10.1 L (12.0-16.0) g/dl Hct 30.2 L (37.0-47.0) % Plt Count 135 L D (160-400) X10*3/uL BMP 09/07/23 10:13 Sodium 136 Potassium 2.9 L* D Chloride 99 Carbon Dioxide 27 BUN 32 H Creatinine 1.78 H Calcium 9.0 D Liver Function 09/07/23 Range/Units 10:13 Total Bilirubin 0.3 (0.0-1.0) mg/dL AST 13 (5-31) U/L ALT 7 (0-31) U/L Alkaline Phosphatase 62 (39-117) U/L Albumin 3.7 (3.5-5.0) g/dL Assessment and Plan Patient Active problem list reviewed?: Yes (1) Small cell carcinoma Status: Acute Assessment and plan: 83-year-old lady with small-cell carcinoma of the lung diagnosed, status post chemotherapy followed by combined modality therapy, currently on immunotherapy maintenance. She presents with general weakness, Acute hypokalemia, Anemia, ANA (acute kidney injury), Acute hypotension, Syncope, UTI (urinary tract infection). 01/13 BIOPSY OF TISSUE FROM THE LUNG MASS WELL FROM MEDIASTINAL LYMPH NODE, POSITIVE FOR POORLY DIFFERENTIATED SMALL CELL CARCINOMA WITH NEUROENDOCRINE FEATURES. MRI OF BRAIN IS POSITIVE FOR BRAIN METS. She has a 60 pack years of smoking history. CT scan of the chest from 01/16 revealed: 3 x 4 cm right upper lobe mass suspicious for neoplasm. PET/CT scan or tissue sampling recommended. Emphysema. Small pulmonary nodules. Severe coronary artery calcification. 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 Dedicated abdominal aorta ultrasound recommended. Review of imaging from 09/05 revealed: Chest CT: Lines and tubes: Right chest wall port catheter tip terminates overlying the upper SVC. EKG leads overlie the patient. Interval decrease in size of the previously seen right upper lobe mass which now demonstrates bandlike residual opacities. No new focal consolidation. No pleural effusion. No pneumothorax. Unchanged cardiomediastinal silhouette. Chest x-ray, IMPRESSION: Interval decrease in size of the previously seen right upper lobe mass which now demonstrates bandlike residual opacities. No new focal consolidation. HEAD: Known intracranial metastatic disease is better demonstrated on the prior MRI of the brain dated 04/04/2023. If there is any concern for progression, a repeat MRI of the brain would be advised. Stable chronic low attenuation within the right caudate. There is a 1.3 cm ossified extra-axial focus along the left parasylvian convexity that could reflect a meningioma or focal dural ossification. There is no intracranial hemorrhage, hydrocephalus, extra-axial surface collection, midline shift, or other herniation pattern. Vargas to white matter differentiation is diffusely maintained without evidence of an evolved acute territorial infarct. The basilar cisterns are preserved. No significant soft tissue abnormality. No acute osseous abnormality. The paranasal sinuses and the mastoid air cells are well aerated. CERVICAL SPINE: Cervical alignment is normal. The vertebral body heights are maintained. There are multilevel endplate osteophytes. There are no acute fractures and there are no acute subluxations. Craniocervical junction is unremarkable. Hypertrophic degenerative changes involving the atlantodental interval. There is no prevertebral soft tissue swelling. Atherosclerotic calcification involving the carotid bifurcations bilaterally. Right IJ Port-A-Cath. Patient presents after a fall at home. She has had a cough. She has had symptoms of UTI. She has hypokalemia. Kidney function is elevated. PLAN: She will be managed in the hospital with IV hydration. Potassium replacement. IV antibiotics to cover bronchitis and UTI. Her thyroid function is up. The daughter tells me she has not been taking her Synthroid at home. Will resume. Hopefully she will turn around over the next 24 hours. Thanks for the consult, I will follow along with you, CC: Dr. Mathews. - Time Spent With Patient Time Spent with Patient (in minutes): 30
[2023-09-07] MEDS: Heparin Sodium,Porcine 5,000 UNIT/ML VIAL 5000 UNIT SUBCUT (13:37)
[2023-09-07] MEDS: 0.9 % Sodium Chloride 1,000 ML 100 ML IVCONT ×2 (13:38→22:20)
[2023-09-07 17:22] LABS: Potassium 4.3 mmol/L (3.3-5.1)
[2023-09-07 18:00] LABS: Appearance Urine Clear; Color Urine Yellow; Glucose Urine UA Negative (Negative); Leukocyte Esterase Urine Moderate (2+) (Negative); Nitrite Urine Negative (Negative); UMIC TRIGGER UACC YES; Urine Blood Trace (Negative); Urine Ketones Negative (Negative); Urine Protein Negative (Neg-Trace)
[2023-09-07 18:07] LABS: Bacteria Urine None Seen (None Seen); Hyaline Casts Urine 0-2 /LPF (0-2); RBC Urine 0-2 /HPF (0-2); Squamous Epithelial Cell Urine 0-2 /HPF (0-2); UACC Culture Trigger YES; WBC Urine 21-50 /HPF (0-5)
[2023-09-08 03:28] VITALS: BP 119/57; PULSE 70; RESP 18; TEMP 36.9; O2SAT 94
[2023-09-08] MEDS: Heparin Sodium,Porcine 5,000 UNIT/ML VIAL 5000 UNIT SUBCUT ×2 (04:01→13:54)
[2023-09-08] MEDS: Levothyroxine Sodium 75 MCG TABLET PO (06:18)
[2023-09-08] MEDS: 0.9 % Sodium Chloride 1,000 ML 100 ML IVCONT ×2 (06:19→15:36)
[2023-09-08 07:04] LABS: Hematocrit 27.4 % (37.0-47.0); Hemoglobin 8.9 g/dl (12.0-16.0); Mean Corpuscular HGB Conc 32.5 g/dl (31.0-35.0); Mean Corpuscular Hemoglobin 36.9 pg (27.0-33.0); Mean Platelet Volume 9.9 fL (9.4-12.3); Platelet Count 120 X10*3/uL (160-400); Red Blood Count 2.41 X10*6/uL (4.20-5.50); Red Cell Distribution Width 14.8 % (11.0-16.0); White Blood Count 8.3 X10*3/uL (4.8-10.8)
[2023-09-08 07:05] VITALS: BP 103/60; PULSE 69; RESP 20; TEMP 36.7; O2SAT 92
[2023-09-08 07:15] LABS: Mean Corpuscular Volume 113.7 fL (80.0-98.0)
[2023-09-08 07:16] LABS: Anion Gap 14 (12-20); Blood Urea Nitrogen 23 mg/dL (9-16); Carbon Dioxide 22 mmol/L (22-29); Chloride 105 mmol/L (96-108); Creatinine Clr Calc Pharmacy 26.5; Estimated Glomerular Filt Rate 34; Glucose Random 86 mg/dL (60-115); Potassium 4.2 mmol/L (3.3-5.1); Sodium 137 mmol/L (135-145)
--- NOTE | 2023-09-08 09:44 | HO.PM.IMPN ---
Subjective Subjective Date of Service: 09/08/23 Review of Systems Follow up ANA, dehydration, UTI feeling good today no nausea or vomiting Physical Exam Vital Signs: Vital Signs: Last Vital Signs Temp 98.1 F 09/08/23 07:05 Pulse 69 09/08/23 07:05 Resp 20 09/08/23 07:05 BP 103/60 09/08/23 07:05 Pulse Ox 92 09/08/23 07:05 O2 Del Method Room Air 09/08/23 07:05 O2 Flow Rate 95 09/07/23 09:47 BMI result Body Mass Index 22.6 Appearing in no acute distress lung sounds are clear to auscultation heart regular rate rhythm, clear S1, S2 positive bowel sounds, abdomen is soft, nontender neuro patient is alert x3, no focal deficits Objective Data Active Medications Acetaminophen (Acetaminophen 325 Mg Tablet) 650 mg PO Q6H PRN PRN Reason: Pain, Mild (Pain Scale 1-3) Albuterol Sulfate (Albuterol Sulfate 90 Mcg 8 Gm Inhaler) 2 puff INHALE Q6H PRN PRN Reason: shortness of breath or wheeze Alprazolam (Alprazolam 0.25 Mg Tablet) 0.25 mg PO BID PRN PRN Reason: Anxiety Heparin Sodium (Porcine) (Heparin Sodium,Porcine 5,000 Unit/Ml Vial) 5,000 unit SUBCUT Q12H [facility] Last Admin: 09/08/23 04:01 Dose: 5,000 unit Documented By: RISHI Ceftriaxone Sodium 1 gm/ (Sodium Chloride) 50 mls @ 100 mls/hr IV Q24H [facility] Sodium Chloride (Ns) 1,000 mls @ 100 mls/hr IVCONT .Q10H [facility] Last Admin: 09/08/23 06:19 Dose: 100 mls/hr Documented By: RISHI Levothyroxine Sodium (Levothyroxine Sodium 88 Mcg Tablet) 88 mcg PO DAILY@0600 [facility] Ondansetron HCl (Ondansetron Hcl 4 Mg/2 Ml Vial) 4 mg IVPUSH Q8H PRN PRN Reason: Nausea and Vomiting Sodium Chloride (0.9 % Sodium Chloride Flush 3 Ml Syringe) 3 ml IVFLUSH QSHIFT [facility] Last Admin: 09/08/23 09:28 Dose: Not Given Documented By: HO.RIVEJES Non-Admin Reason: IV Running Labs 03/17/24 06:14 09/08/23 06:14 Labs: Laboratory Results - last 24 hr 09/07/23 09/07/23 09/08/23 10:13 17:43 06:14 MCV 112.7 H D 113.7 H MCH 37.7 H 36.9 H MCHC 33.4 32.5 RDW 15.2 14.8 Plt Count 135 L D 120 L MPV 10.1 9.9 Immature Gran % (Auto) 0.7 H Neut % (Auto) 81.0 H Lymph % (Auto) 6.5 L Brooks % (Auto) 9.5 Eos % (Auto) 1.9 Baso % (Auto) 0.4 Lymph # (Auto) 0.6 L Brooks # (Auto) 0.9 Eos # (Auto) 0.2 Baso # (Auto) 0.0 Abs Immat Gran (auto) 0.07 H Absolute Neuts (auto) 8.0 Absolute Nucleated RBC 0.000 0.000 Nucleated RBC % (auto) 0.0 0.0 PT 11.4 INR 0.9 Anion Gap 13 14 Estim Creat Clear Calc 21.8 26.5 Estimated GFR 27 34 Random Glucose 102 86 Lactic Acid 1.3 Calcium 9.0 D 8.0 L D Magnesium 2.1 Total Bilirubin 0.3 AST 13 ALT 7 Alkaline Phosphatase 62 Troponin I High Sens 5.3 Total Protein 6.9 Albumin 3.7 Urine Color Yellow Urine Appearance Clear Urine pH 6.0 Ur Specific [place] 1.010 Urine Protein Negative Urine Glucose (UA) Negative Urine Ketones Negative Urine Blood Trace H Urine Nitrite Negative Ur Leukocyte Esterase Moderate (2+) H Urine RBC 0-2 Urine WBC 21-50 H Ur Squamous Epith Cells 0-2 Urine Bacteria None Seen Hyaline Casts 0-2 Influenza Type A (PCR) NEGATIVE Influenza Type B (PCR) NEGATIVE RSV RNA Qual (PCR) NEGATIVE SARS-CoV-2 RNA (RT-PCR) NEGATIVE Assessment and Plan (1) Community acquired pneumonia: Status: Acute (2) RSV bronchitis: Status: Acute Plan 83 year old women admitted with UTI, ANA after a fall at home ANA Creat trending down Likely from dehydration and use of bactrim IV fluids follow BMP closely avoid nephrotoxins Klebsiella pneumoniae UTI Positive ua from 09/06/23 continue Rocephin Hypokalemia. 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 Sanford Full code DISPO plan for home when medically clear continue hospital stay for tx of acute ana, UTI and hypokalemia from dehydration requiring close telemetry monitoring and possible specialty consultation. Given her dx of small cell carcinoma she could decompensate quickly at a lesser acute setting Quality Stroke Does the patient have a stroke diagnosis?: No VTE Prior VTE?: No VTE Risk Level:: Medical - moderate - high VTE Device Contraindication: Treatment Not Indicated VTE Drug Contraindication: N/A - Med Ordered
--- NOTE | 2023-09-08 10:08 | MHC.CM.PN ---
IMM 09/08/23 DELIVERED TO BEDSIDE, PT IS A&O, REPORTS HER DTR KARINA LIVES W/HER, PT IS FULLY INDEP W/CARE, DENIES USE OF DME/SERVICES AND REPORTS HER DTR KARINA CAN ASSIST IF SHE NEEDS ANYTHING, CURRENTLY PT ID DECLINING [facility] SERVICES. PT VERIFIES PCP IS [facility], PT EDUCATED ON AND DECLINES TO COMPLETE A HCP AT THIS TIME.
[2023-09-08 11:12] VITALS: BP 101/60; PULSE 73; RESP 18; TEMP 36.7; O2SAT 100
[2023-09-08] MEDS: cefTRIAXone sodium 1 GM in 0.9 % Sodium Chloride 50 ML IV (13:54)
[2023-09-08 15:34] VITALS: BP 111/60; PULSE 75; RESP 18; TEMP 36.5; O2SAT 92
[2023-09-08 20:00] VITALS: BP 117/58; PULSE 80; RESP 18; TEMP 36.7; O2SAT 95
[2023-09-09] VITALS: BP 120/65; PULSE 73; RESP 18; TEMP 36.9; O2SAT 100
[2023-09-09] MEDS: 0.9 % Sodium Chloride Flush 3 ML SYRINGE IVFLUSH ×2 (01:26→09:24)
[2023-09-09] MEDS: 0.9 % Sodium Chloride 1,000 ML 100 ML IVCONT (01:59)
[2023-09-09 03:43] VITALS: BP 122/59; PULSE 64; RESP 18; TEMP 36.7; O2SAT 97
[2023-09-09] MEDS: Levothyroxine Sodium 88 MCG TABLET PO (05:06)
[2023-09-09 07:56] VITALS: BP 116/59; PULSE 62; RESP 20; TEMP 36.1; O2SAT 97
--- NOTE | 2023-09-09 08:36 | PM.DS ---
DS: Providers Provider Date of Service: 09/09/23 Date of admission: 09/07/23 13:10 Primary care physician: Sarah Mathews MD Consults: 09/07/23 13:13 Consult to Hematology / Oncology Routine Consulting Provider: Yosef Wolff Reason for consultation: ANA DS: Diagnosis Discharge Diagnosis (1) Community acquired pneumonia: Status: Acute (2) RSV bronchitis: Status: Acute DS: Summary Hospital Course Hospital Course: History and physical as per admitting provider. 83 year old women with HTN. HLD, h/o recurrent PNA, recent dx of small cell carcinoma and COPD. current everyday smoker. 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 Wolff has completed radiation therapy at [facility]. She presented with generalized fatigue, malaise, decreased appetite, cough, chest congestion and a fall on with head injury and loss of consciousness. She has also had some increased urinary frequency and urgency. Her daughter's report that this all started around Saturday she was already not feeling well or not her normal self. On Saturday she received her pneumonia vaccine. Saturday she went to have chemotherapy and she was noted to have some ANA therefore they gave her some IV fluids. She was also started on Bactrim by Dr. Wolff for a UTI but only took 2 pills. Patient denied fever, chills, nausea, vomiting, diarrhea, recent illness, sick contacts, chest pain, shortness for breath. Cervical spine and head CT negative for any acute abnormality. Chest x-ray showing interval decrease in size of the previously seen right upper lobe mass which now demonstrates bandlike residual opacities with no new focal consolidation. Potassium noted to be 2.9, creatinine 1.78, positive UA, low blood pressure reading of 84/44, patient given IV fluids as well as IV potassium, Rocephin. Patient will be admitted for further management and treatment of UTI, hyperkalemia, fall and ANA. 83-year-old woman treated for ANA, UTI, hypokalemia and fall. She is currently under the care of [facility] Oncology for small-cell carcinoma. She presented dehydrated was treated with IV fluids. Prior to hospitalization she was treated with Bactrim for UTI which may have worsened her ANA. UA was positive and she was started on IV Rocephin, urine culture back for Klebsiella pneumoniae. Will treat with 6 more days of cefuroxime. Hypokalemia was repleted with IV and oral potassium and resolved. Fall was likely multifactorial related to UTI and dehydration. She uses oxygen at home as needed and she may continue with that. Plan is for discharge home with family. COPD. No exacerbation. Continue home albuterol Mental health. Continue home medications Hypothyroidism. TSH greater than 100, on levothyroxine 88 mcg at this time Hyperlipidemia. Continue statin Smoker. Discussed the importance of smoking cessation Time Attestation Discharge Coordination Time (in mins): 45 Quality: Safe Use of Opioids Does Pt have an Active Cancer Diagnosis on the Problem List?: No Quality: Stroke Does the patient have a stroke diagnosis?: No Physical Exam Vital Signs: Vital Signs: Last Vital Signs Temp 96.9 F 09/09/23 07:56 Pulse 62 09/09/23 07:56 Resp 20 09/09/23 07:56 BP 116/59 L 09/09/23 07:56 Pulse Ox 97 09/09/23 07:56 O2 Del Method Nasal Cannula 09/09/23 07:56 O2 Flow Rate 1 09/09/23 07:56 BMI result Body Mass Index 22.6 Appearing in no acute distress head is normocephalic atraumatic eyes pupils are PERRLA sclera is anicteric mouth throat mucous membranes are intact and moist neck is supple no lymphadenopathy, no JVD noted lung sounds are clear to auscultation heart regular rate rhythm, clear S1, S2 positive bowel sounds, abdomen is soft, nontender neuro patient is alert x3, no focal deficits DS: Data Data Completed and Pending Labs on day of discharge: Preliminary micro results at discharge 09/07/23 10:20 Blood Culture - Preliminary Blood - Venous No growth after 24 hours. 09/07/23 10:13 Blood Culture - Preliminary Blood - Venous No growth after 24 hours. Discharge Plan Discharge Anticipated Discharge Date/Time: 09/09/23 08:28 Patient Disposition: Home, Self-Care Discharge Diagnosis: Urinary tract infection Acute kidney injury Hypokalemia Fall Referrals: Sarah Mathews MD [Primary Care Provider] - 1 Week Discharge Medications: New cefuroxime axetil 500 mg tablet 500 mg PO BID Qty: 12 0RF Continued gemfibrozil 600 mg Tablet 600 mg PO BID hydrochlorothiazide 25 mg Tablet 25 mg PO BEDTIME pravastatin 20 mg Tablet 20 mg PO BEDTIME Systane Complete 0.6 % Drops 1 drp OPHTHALMIC (EYE) DAILY PRN (Reason: Dry Eyes) ondansetron 8 mg tablet,disintegrating 8 mg PO Q8H PRN (Reason: Nausea) alprazolam [Xanax] 0.25 mg Tablet 0.25 mg PO BID PRN (Reason: Anxiety) Qty: 30 0RF levothyroxine [Synthroid] 75 mcg Tablet 75 mcg PO DAILY Qty: 30 3RF albuterol sulfate [ProAir HFA] 90 mcg/actuation HFA aerosol inhaler 2 puff inhalation Q6H PRN (Reason: shortness of breath or wheeze) Discontinued sulfamethoxazole-trimethoprim [Bactrim DS] 800-160 mg Tablet 1 tab PO BID Qty: 14 2RF Discharge Orders: Discharge Order (Routine); Ordered 09/09/23 Ordered By: Xin Keene Diet: Advance to usual diet Activity on Discharge: As tolerated Stand Alone Forms: Patient Portal Discharge page Care Plan Goals: May continue to use oxygen at home as needed Health Concerns: Urinary tract infection Acute kidney injury Hypokalemia Fall Plan of Treatment: Follow-up with primary care provider as needed Take all medications as prescribed Assessment: See discharge summary
[2023-09-09 08:53] LABS: Anion Gap 12 (12-20); Blood Urea Nitrogen 20 mg/dL (9-16); Calcium 8.5 mg/dL (8.4-10.2); Carbon Dioxide 25 mmol/L (22-29); Chloride 107 mmol/L (96-108); Creatinine Clr Calc Pharmacy 28.5; Estimated Glomerular Filt Rate 37; Glucose Random 106 mg/dL (60-115); Potassium 4.7 mmol/L (3.3-5.1); Sodium 139 mmol/L (135-145)
--- NOTE | 2023-09-09 09:45 | MHC.CM.PN ---
IMM 09/08/23 Patient is discharged to home with family assist and transport.
--- NOTE | 2023-09-09 12:00 | W.MHC.F2F ---
Service Date Service Date: 09/09/23 Encounter Date of encounter: 09/09/23 Reasons for Services Signs and symptoms assessed: Weakness hypokalemia con uti Reason for physical therapy: home safety and mobility Homebound: Leaving the home is medically contraindicated at this time without the asist of a device and/or another person due th the listed conditions above and below. Reason homebound: weakness related to hospital stay Certification: Based on the above findings, I certify that this patient is confined to the home and needs intermittent penitentiary care, physical therapy and/or speech therapy, or continues to need occupational therapy. The patient is under my care, and I have initiated the establishment of the plan of care. The patient will be followed by a physician who will periodically review the plan of care. Time Spent With Patient Time: Total time managing care of this patient today ____ minutes.
--- NOTE | 2023-09-10 15:14 | MHC.CM.PN ---
Addendum entered by Stephanie Hawkins 09/10/23 15:17: DTR Lamar has been notified of the SOC date. Original Note: [facility] will start PT in the home on 09/12/23. The provider is aware and is ok with the SOC date.
== END 2023-09-09 11:40 | disposition home or self-care (01) | DRG 689 ==
LOC: HO.ED 13:05 → HO.EDOVER 13:23 → HO.IMC 15:56
PROVIDERS: Physician Assistant Medical; Admitting Provider Nurse Practitioner Acute Care; Emergency Provider Emergency Medicine; PCP Student in an Organized Health Care Education/Training Program; Visit Provider Nurse Practitioner Acute Care
DX: N39.0 Urinary tract infection, site not specified (principal); J18.9 Pneumonia, unspecified organism; C34.11 Malignant neoplasm of upper lobe, right bronchus or lung; C77.1 Secondary and unspecified malignant neoplasm of intrathoracic lymph nodes; C79.31 Secondary malignant neoplasm of brain; N17.9 Acute kidney failure, unspecified; J44.0 Chronic obstructive pulmonary disease with (acute) lower respiratory infection; B96.1 Klebsiella pneumoniae [K. pneumoniae] as the cause of diseases classified elsewhere; J20.5 Acute bronchitis due to respiratory syncytial virus; E78.5 Hyperlipidemia, unspecified; E03.9 Hypothyroidism, unspecified; E86.0 Dehydration; F17.210 Nicotine dependence, cigarettes, uncomplicated; Z71.6 Tobacco abuse counseling; E87.6 Hypokalemia; Z20.822 Contact with and (suspected) exposure to COVID-19; Z87.01 Personal history of pneumonia (recurrent); Z79.890 Hormone replacement therapy; Z79.899 Other long term (current) drug therapy
CPT/HCPCS: 0241U; 36415; 70450; 71045; 72125; 80048; 80053; 81001; 83605; 83735; 84132; 84484; 85025; 85027; 85610; 87040; 93005; 97161; 99285; J0696; J1644; J3480

== ENCOUNTER → 2023-09-07 09:43 | Outpatient (BNV) | payer MEDICARE, SELFPAY | PROVIDERS: Admitting Provider Nurse Practitioner Acute Care; Emergency Provider Emergency Medicine; PCP Student in an Organized Health Care Education/Training Program; Visit Provider Internal Medicine Cardiovascular Disease | DX: R06.02 Shortness of breath (principal) | CPT/HCPCS: 93010 ==

== ENCOUNTER → 2023-09-07 13:10 | Outpatient (BNV) | payer MEDICARE, SELFPAY | PROVIDERS: Admitting Provider Nurse Practitioner Acute Care; Emergency Provider Emergency Medicine; PCP Student in an Organized Health Care Education/Training Program; Visit Provider Nurse Practitioner Acute Care | DX: C80.1 Malignant (primary) neoplasm, unspecified (principal); N39.0 Urinary tract infection, site not specified | CPT/HCPCS: 99223; 99232; 99239; G0180 ==

== ENCOUNTER → 2023-09-07 13:10 | Outpatient (BNV) | payer MEDICARE, SELFPAY | PROVIDERS: Admitting Provider Nurse Practitioner Acute Care; Emergency Provider Emergency Medicine; PCP Student in an Organized Health Care Education/Training Program; Visit Provider Internal Medicine Medical Oncology | DX: C34.11 Malignant neoplasm of upper lobe, right bronchus or lung (principal); Z79.60 Long term (current) use of unspecified immunomodulators and immunosuppressants | CPT/HCPCS: 99222 ==

== ENCOUNTER 2023-09-13 15:28 | Outpatient (REF) | payer MEDICARE, SELFPAY ==
--- NOTE | ~2023-09-13 | XR_ITS ---
EXAMINATION: XR ELBOW, LEFT CLINICAL INFORMATION: Pain status post fall COMPARISON: None available. TECHNIQUE: AP, lateral, and oblique views of the left elbow. FINDINGS: The bones and soft tissues are normal. No fracture or joint effusion. Alignment is anatomic. Joint spaces are maintained. XR/XR elbow LT 2V IMPRESSION: Normal left elbow.
== END 2023-09-13 15:29 | disposition home or self-care (01) ==
LOC: HO.XRAY 15:28
PROVIDERS: PCP Family Medicine; Visit Provider Family Medicine
DX: S50.02XA Contusion of left elbow, initial encounter (principal)
CPT/HCPCS: 73070

== ENCOUNTER 2023-09-19 09:51 | Outpatient (REF) | payer MEDICARE, SELFPAY ==
[2023-09-19 14:56] LABS: Appearance Urine Clear; Color Urine Yellow; Glucose Urine UA Negative (Negative); Leukocyte Esterase Urine Negative (Negative); Nitrite Urine Negative (Negative); PH 5.5 (5.0-9.0); Specific Gravity - Urine 1.015 (1.005-1.025); Urine Blood Negative (Negative); Urine Ketones Negative (Negative); Urine Protein Negative (Neg-Trace)
[2023-09-19 15:02] LABS: Bacteria Urine None Seen (None Seen); Hyaline Casts Urine 0-2 /LPF (0-2); RBC Urine 0-2 /HPF (0-2); Squamous Epithelial Cell Urine 0-2 /HPF (0-2); WBC Urine 0-5 /HPF (0-5)
== END 2023-09-19 09:52 | disposition home or self-care (01) ==
LOC: HO.CHCLDS 09:51
PROVIDERS: Visit Provider Family Medicine
DX: R30.0 Dysuria (principal)
CPT/HCPCS: 81001

== ENCOUNTER 2023-09-27 13:42 | Outpatient (REF) | payer MEDICARE, SELFPAY ==
--- NOTE | ~2023-09-27 | MR_ITS ---
EXAMINATION: MR BRAIN WITHOUT AND WITH CONTRAST CLINICAL INFORMATION: Metastatic disease COMPARISON: MRI of the brain with and without contrast 04/04/2023 TECHNIQUE: Multiplanar multisequence MR imaging of the brain was obtained without and following the administration of 6 mL Gadavist intravenous contrast. FINDINGS: There is evidence of interval treatment response with resolution of previously noted intracranial metastatic lesions involving the left middle frontal gyrus, left frontal parietal operculum, left parietal deep white matter, and right cerebellum. There is mild T2/FLAIR hyperintense signal corresponding to the treated lesions in the left parietal deep white matter and right cerebellum, likely reflecting gliosis. No new intraparenchymal metastases are identified. There is no acute infarct on diffusion-weighted imaging. There is no intracranial hemorrhage on iron-sensitive imaging. No extra-axial collection or mass effect/herniation. There are several scattered foci of nonspecific supratentorial white matter T2/FLAIR signal abnormality. Chronic lacunar infarct involving the right aranda radiata No hydrocephalus. The ventricles are normal in morphology and size. Stable punctate focus of enhancement at the fundus of the right internal auditory canal Right cerebellar developmental venous anomaly. The major flow voids at the skull base are preserved. Stable extra-axial susceptibility artifact along the left lateral frontal convexity measuring up to 1.5 cm (series 6 image 14) corresponding to a region of calcification on CT and which may represent dural ossification or meningioma. The midline structures are normal. The cerebellar tonsils are normally positioned. The craniocervical junction is normal. Marrow signal is within normal limits. The visualized soft tissues are without significant abnormality. No signal abnormality within the paranasal sinuses or within the mastoid air cells. MR/MR head/brain wo/w con IMPRESSION: 1. Evidence of treatment response with resolution of previously noted enhancing intracranial metastases. No new intracranial metastatic disease. 2. Stable extra-axial susceptibility artifact along the left frontal convexity corresponding calcification on CT which may represent dural ossification or a densely calcified meningioma 3. Stable punctate focus of enhancement at the fundus of the right internal auditory canal which may represent a small schwannoma. Attention on follow-up imaging.
[2023-09-27] MEDS: gadobutroL 7.5 ML VIAL IVPUSH (14:46)
== END 2023-09-27 13:43 | disposition home or self-care (01) ==
LOC: HO.MRI 13:42
PROVIDERS: PCP Family Medicine; Visit Provider Internal Medicine Medical Oncology
DX: C80.1 Malignant (primary) neoplasm, unspecified (principal)
CPT/HCPCS: 70553; A9585

== ENCOUNTER 2023-09-30 10:56 | Outpatient (REF) | payer MEDICARE, OTHER, SELFPAY | END 2023-09-30 10:57 | disposition home or self-care (01) | LOC: HO.LAB 10:56 | PROVIDERS: PCP Student in an Organized Health Care Education/Training Program; Visit Provider Student in an Organized Health Care Education/Training Program | DX: Z13.89 Encounter for screening for other disorder (principal) ==

== ENCOUNTER 2023-10-17 09:18 | Outpatient (AMB) | payer MEDICARE, MEDICAID, SELFPAY ==
--- NOTE | 2023-10-17 09:31 | MHC.OFFVIS ---
Vital Signs 10/17/23 09:32 Height 5 ft 5 in Weight 130 lb 1.164 oz BMI 21.6 BP 102/60 Blood Pressure Location Lt brachial Position Sitting Pulse 56 Pulse Source Pulse Oximeter Pulse Oximetry (%) 95 Oxygen Delivery Method Room Air Intake Visit Reasons: COPD Intake Note: pt is here for follow up and states she is using oxygen as needed and family hears some wheeze, Adult Basic Education Teacher Required: No Allergies No Known Allergies [No Known Allergies*] Allergy (Verified 10/17/23 09:51) Medication List - Last Reconciled 10/17/23 by Janet Soliz MD albuterol sulfate 90 mcg/actuation (ProAir HFA) 2 puffs inhalation Q6H PRN alprazolam (Xanax) 0.25 mg PO BID PRN gemfibrozil 600 mg PO BID hydrochlorothiazide 25 mg PO BEDTIME levothyroxine (Synthroid) 75 mcg PO DAILY ondansetron 8 mg PO Q8H PRN pravastatin 20 mg PO BEDTIME propylene glycol 0.6% (Systane Complete) 1 drp ophthalmic (eye) DAILY PRN Do you need a note to return to daycare/school/sports/work: No HPI HPI COPD: Details: 83 years old very pleasant female, with mild COPD, and 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 Pulmonary arizmendi doing very well, she has mild cough or shortness of breath usually in the evening hours, she does use oxygen for short periods in the evenings but does not need to use at night. She uses albuterol inhaler only once in a while. Eating well and remains energetic. 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 She is tolerating the chemotherapy very well. [facility] Medical History Anemia Hypoxemia Smoker COPD (chronic obstructive pulmonary disease) Diverticulosis Hypercholesteremia IBS (irritable bowel syndrome) HTN (hypertension) Surgical History Small cell carcinoma Hx of tonsillectomy Hx of appendectomy History of lumpectomy Lymphadenopathy, mediastinal Lung mass H/O colonoscopy Family History Sister Breast cancer Social History Household Members: None Housing: Apartment Do you presently have visiting nurse or other home services: No Patient Tobacco Use Status: Never used Tobacco Tobacco use type: Cigarette Years Smoked: 45years e-Cigarette/Vaping Use: Currently Using Second Hand Smoke Exposure: No service: No Current occupational status: retired Review of Systems Const All systems reviewed & are unremarkable except as noted in HPI and below Eyes Reports no additional complaints ENT Reports no additional complaints Card Denies chest pain, Denies irregular heart rhythm and Denies leg edema Resp Reports as per HPI GI Reports no additional complaints Reports no additional complaints Musc Reports no additional complaints Skin/Breast Reports system reviewed and no additional complaints, except as documented Neuro Reports no additional complaints Psych Reports no additional complaints Physical Exam Vital Signs: Last Vital Signs Pulse 56 10/17/23 09:32 BP 102/60 10/17/23 09:32 Pulse Ox 95 10/17/23 09:32 Oxygen Delivery Method Room Air 10/17/23 09:32 BMI result Body Mass Index 21.6 Const General: healthy appearing, comfortable, no acute distress, alert and awake Orientation/consciousness: patient oriented x3 HEENT Head: Yes normal to inspection General nose exam: No nasal polyps present and No nasal discharge present Face and sinus: Yes sinuses nontender Mouth: oropharynx normal Throat: Yes posterior oropharynx normal Eyes General: appearance normal, both eyes and all related structures Neck Neck: Yes normal visual inspection, Yes no lymphadenopathy, Yes trachea midline and Yes no JVD Thyroid: Thyroid normal Chest Chest palpation & inspection: normal inspection of the chest, normal palpation of entire chest wall and no tenderness Resp Other: Percussion note hyper-resonant. Breath sounds are slightly distant with prolonged expiratory phase. No wheezes or rhonchi . No creps. Cardio Palpation: normal PMI Rate: regular rate Rhythm: regular rhythm Heart sounds: no gallops and no murmurs Peripheral pulses: Peripheral pulses 2+ throughout GI Palpation (GI): Soft to palpation, nontender, No hepatosplenomegaly present and no masses Auscultation: normal bowel sounds Back/Spine/Pelvis Thoracic/Lumbar Spine: thoracic and lumbar spine normal to inspection Skin General skin exam: no rashes or lesions noted Neuro General: patient oriented x3 and no focal motor deficits Cranial nerves: Yes CN's II-XII intact bilaterally Extrem General: Yes normal to inspection, Yes no clubbing, cyanosis or edema and Yes no calf tenderness Psych Appearance: grossly normal and well kempt Speech and movement: Normal speech and movement present Results Reviewed Results Reviewed: Recent MRI of the brain, shows resolution of the metastatic lesions. Assessment & Plan Assessment & Plan (1) COPD (chronic obstructive pulmonary disease): Comment: Chronic obstructive pulmonary disease, mild, and stable Code(s): J44.9 - Chronic obstructive pulmonary disease, unspecified Category: Medical Plan: Albuterol HFA 2 puffs Q 4-6 hours only p.r.n. (2) Smoker: Comment: Past history of smoking for 45 pack years. 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 Has responded to chemotherapy very well Code(s): C80.1 - Malignant (primary) neoplasm, unspecified Category: Surgical Plan: Continue chemotherapy, Under care of doctor Dr. Yosef Wolff , oncology service. Coding Level of Care Code Est Pt Level 3 (04749) Diagnoses COPD (chronic obstructive pulmonary disease) J44.9 Smoker F17.200 Small cell carcinoma C80.1
[2023-10-17 09:32] VITALS: BP 102/60; PULSE 56; O2SAT 95; BMI 21.6
== END 2023-10-17 09:51 | disposition home or self-care (01) ==
PROVIDERS: PCP Student in an Organized Health Care Education/Training Program; Visit Provider Internal Medicine
DX: J44.9 Chronic obstructive pulmonary disease, unspecified (principal); F17.200 Nicotine dependence, unspecified, uncomplicated; C80.1 Malignant (primary) neoplasm, unspecified
CPT/HCPCS: 99213

== ENCOUNTER → 2023-10-17 09:18 | Outpatient (BNVA) | payer MEDICARE, MEDICAID, SELFPAY | PROVIDERS: PCP Student in an Organized Health Care Education/Training Program; Visit Provider Internal Medicine | DX: J44.9 Chronic obstructive pulmonary disease, unspecified (principal); C80.1 Malignant (primary) neoplasm, unspecified; F17.200 Nicotine dependence, unspecified, uncomplicated | CPT/HCPCS: 99212 ==

== ENCOUNTER 2023-10-21 09:16 | Outpatient (REF) | payer MEDICARE, SELFPAY ==
--- NOTE | ~2023-10-21 | CT_ITS ---
EXAMINATION: CT CHEST WITH CONTRAST CLINICAL INFORMATION: Follow-up small cell carcinoma of lung COMPARISON: 07/22/2023 TECHNIQUE: Multidetector volumetric CT imaging of the chest was obtained after the administration of 65 mL of Omnipaque 350 intravenous contrast without immediate adverse reactions. Axial MIP volume rendering provided. Sagittal and coronal reformatted images were obtained. This CT examination was performed using dose optimization techniques as appropriate, variously including the following: *Automated exposure control *Adjustment of mA and/or kV according to patient size (this includes techniques or standardized protocols for targeted exams where dose is matched to indication/reason for exam; i.e. extremities or head) *Use of iterative reconstruction technique DLP: 94 mGy-cm FINDINGS: EPOXY SPECIALIST: Unremarkable There is Port-A-Cath present. LUNGS: There is spiculated lesion in the right upper lobe most likely scarring slightly diminished in size since previous study, measured approximately 1.6 x 0.9 cm, on the previous examination it was measured 1.8 x 1.2 cm. There are no new lesions. There are mild changes of emphysema. MEDIASTINUM: No evidence of hilar or mediastinal lymphadenopathy. Coronary artery calcifications present. There is no pericardial effusion. The aorta is not dilated. Thyroid gland is normal. PLEURA: There is no pleural effusion. No pleural mass or thickening. AXILLA: No lymphadenopathy. UPPER ABDOMEN: Gastric diverticulum redemonstrated with significant amount of debris extending gastric fundus. OSSEOUS STRUCTURES: Unremarkable. CT/CT chest w IV con IMPRESSION: 1. Slight decrease in size of right upper lobe spiculated lesion. No new lesions. No evidence of lymphadenopathy 2. Gastric diverticulum. Fleischner guidelines were followed.
[2023-10-21] MEDS: iohexoL 350 MG/ML 100 ML INFUS..BTL 65 ML IV (10:40)
== END 2023-10-21 09:17 | disposition home or self-care (01) ==
LOC: HO.CT 09:16
PROVIDERS: PCP Student in an Organized Health Care Education/Training Program; Visit Provider Internal Medicine Medical Oncology
DX: C80.1 Malignant (primary) neoplasm, unspecified (principal)
CPT/HCPCS: 71260; Q9967

== ENCOUNTER 2023-12-30 13:31 | Outpatient (REF) | payer MEDICARE, SELFPAY ==
--- NOTE | ~2023-12-30 | MR_ITS ---
EXAMINATION: MR BRAIN WITHOUT AND WITH CONTRAST CLINICAL INFORMATION: Brain metastasis COMPARISON: MRI brain on 09/27/2023 TECHNIQUE: Multiplanar, multisequence MRI of the brain was obtained before and after the intravenous administration of 5.5 mL Gadavist. FINDINGS: No suspicious intra-axial enhancement. 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 No acute intracranial hemorrhage or infarct. Scattered and confluent periventricular and deep white matter T2/FLAIR hyperintensities, nonspecific however commonly seen with small vessel ischemic disease. No midline shift or hydrocephalus. No acute extra-axial fluid collections. Unchanged punctate focus of enhancement in the fundus of the right internal auditory canal. The osseous structures are unremarkable. Stable extra-axial susceptibility artifact along the left frontal convexity. The pituitary gland, pineal gland and remaining midline structures are unremarkable. Sequela bilateral lens replacement. Otherwise, no orbital pathology. The paranasal sinuses and mastoid air cells are clear. MR/MR head/brain wo/w con IMPRESSION: -No evidence of new or recurrent disease. -Stable enhancing focus in the right internal auditory canal.
[2023-12-30] MEDS: gadobutroL 7.5 ML VIAL IVPUSH (15:12)
== END 2023-12-30 13:32 | disposition home or self-care (01) ==
LOC: HO.MRI 13:31
PROVIDERS: PCP Student in an Organized Health Care Education/Training Program; Visit Provider Internal Medicine Medical Oncology
DX: C79.31 Secondary malignant neoplasm of brain (principal)
CPT/HCPCS: 70553; A9585

== ENCOUNTER 2024-01-20 09:19 | Outpatient (AMB) | payer MEDICARE, MEDICAID, SELFPAY ==
[2024-01-20 09:28] VITALS: BP 102/64; PULSE 76; O2SAT 95; BMI 21.3
--- NOTE | 2024-01-20 09:28 | MHC.OFFVIS ---
Vital Signs 01/20/24 09:28 Height 5 ft 5 in Weight 127 lb 13.89 oz BMI 21.3 BP 102/64 Blood Pressure Location Lt brachial Position Sitting Pulse 76 Pulse Source Pulse Oximeter Pulse Oximetry (%) 95 Oxygen Delivery Method Room Air Intake Visit Reasons: COPD Intake Note: pt is here for follow up and using oxygen during the day, and some coughing but is having some right shoulder pain. 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 Officer Required: No Allergies No Known Allergies [No Known Allergies*] Allergy (Verified 01/20/24 09:55) Medication List - Last Reconciled 01/20/24 by Janet Soliz MD albuterol sulfate 90 mcg/actuation (ProAir HFA) 2 puffs inhalation Q6H PRN alprazolam (Xanax) 0.25 mg PO BID PRN gemfibrozil 600 mg PO BID hydrochlorothiazide 25 mg PO BEDTIME levothyroxine 88 mcg PO DAILY levothyroxine (Synthroid) 75 mcg PO DAILY ondansetron 8 mg PO Q8H PRN pravastatin 20 mg PO BEDTIME propylene glycol 0.6% (Systane Complete) 1 drp ophthalmic (eye) DAILY PRN Do you need a note to return to daycare/school/sports/work: No HPI HPI COPD: Details: THIS 83 YEARS OLD VERY PLEASANT FEMALE IS HERE FOR FOLLOW-UP. SHE HAS A MILD CASE OF CHRONIC OBSTRUCTIVE PULMONARY DISEASE FOR WHICH SHE USES ALBUTEROL HFA ONLY ONCE IN A WHILE, AND USES O2 SUPPLEMENTATION P.R.N. WHEN SHE GETS SHORT OF BREATH. THERE HAS BEEN NO RECENT RESPIRATORY INFECTION OR EXACERBATION. SHE WAS DIAGNOSED TO HAVE SMALL-CELL CARCINOMA OF THE RIGHT UPPER LOBE, IN DECEMBER 2022, SHE HAS BEEN TREATED WITH CHEMOTHERAPY, VERY SUCCESSFULLY AND THE RIGHT UPPER LOBE MASS HAS RESOLVED WITH SOME SCARRING. SHE IS FOLLOWED VERY CLOSELY BY IN ONCOLOGY DEPARTMENT.. IN GENERAL SHE IS WEAK, WITH DECREASED APPETITE, BUT MAINTAINING HER WEIGHT AND REMAINS STABLE. MAIN COMPLAINT TODAY IS RIGHT SHOULDER PAIN WHICH SEEMS TO BE RELATED TO DEGENERATIVE ARTHRITIS. SHE HAS BEEN A SMOKER, NOW CUT DOWN TO 2 CIGARETTES A DAY. [facility] Medical History Anemia Hypoxemia Smoker COPD (chronic obstructive pulmonary disease) Diverticulosis Hypercholesteremia IBS (irritable bowel syndrome) HTN (hypertension) Surgical History Small cell carcinoma Hx of tonsillectomy Hx of appendectomy History of lumpectomy Lymphadenopathy, mediastinal Lung mass H/O colonoscopy Family History Sister Breast cancer Social History Household Members: None Housing: Apartment Do you presently have visiting nurse or other home services: No Patient Tobacco Use Status: Current everyday Tobacco user Tobacco use type: Cigarette Cigarette Packs Per Day: 2 Years Smoked: 45years e-Cigarette/Vaping Use: Currently Using Second Hand Smoke Exposure: No service: No Current occupational status: retired Review of Systems Const All systems reviewed & are unremarkable except as noted in HPI and below Eyes Reports no additional complaints ENT Reports no additional complaints Card Denies chest pain, Denies irregular heart rhythm and Denies leg edema Resp Reports as per HPI GI Reports no additional complaints Reports no additional complaints Musc Reports no additional complaints Skin/Breast Reports system reviewed and no additional complaints, except as documented Neuro Reports no additional complaints Psych Reports no additional complaints Physical Exam Vital Signs: Last Vital Signs Pulse 76 01/20/24 09:28 BP 102/64 01/20/24 09:28 Pulse Ox 95 01/20/24 09:28 Oxygen Delivery Method Room Air 01/20/24 09:28 BMI result Body Mass Index 21.3 Const General: healthy appearing, comfortable, no acute distress, alert and awake Orientation/consciousness: patient oriented x3 HEENT Head: Yes normal to inspection General nose exam: No nasal polyps present and No nasal discharge present Face and sinus: Yes sinuses nontender Mouth: oropharynx normal Throat: Yes posterior oropharynx normal Eyes General: appearance normal, both eyes and all related structures Neck Neck: Yes normal visual inspection, Yes no lymphadenopathy, Yes trachea midline and Yes no JVD Thyroid: Thyroid normal Chest Chest palpation & inspection: normal inspection of the chest, normal palpation of entire chest wall and no tenderness Resp Other: Percussion note hyper-resonant. Breath sounds are slightly distant with prolonged expiratory phase. No wheezes or rhonchi . No creps. Cardio Palpation: normal PMI Rate: regular rate Rhythm: regular rhythm Heart sounds: no gallops and no murmurs Peripheral pulses: Peripheral pulses 2+ throughout GI Palpation (GI): Soft to palpation, nontender, No hepatosplenomegaly present and no masses Auscultation: normal bowel sounds Back/Spine/Pelvis Thoracic/Lumbar Spine: thoracic and lumbar spine normal to inspection Skin General skin exam: no rashes or lesions noted Neuro General: patient oriented x3 and no focal motor deficits Cranial nerves: Yes CN's II-XII intact bilaterally Extrem General: Yes normal to inspection, Yes no clubbing, cyanosis or edema and Yes no calf tenderness Psych Appearance: grossly normal and well kempt Speech and movement: Normal speech and movement present Results Reviewed Results Reviewed: CHEST CT SCAN ON 10/21/23 IMP. 1. Slight decrease in size of right upper lobe spiculated lesion. No new lesions. No evidence of lymphadenopathy 2. Gastric diverticulum. Assessment & Plan Assessment & Plan (1) COPD (chronic obstructive pulmonary disease): Comment: Chronic obstructive pulmonary disease, mild, and stable Code(s): J44.9 - Chronic obstructive pulmonary disease, unspecified Category: Medical Plan: TO USE ALBUTEROL HFA 2 PUFFS Q 4-6 HOURS ONLY P.R.N. (2) Small cell carcinoma: Comment: Diagnosed to have small cell carcinoma of the right upper lobe with brain Mets.in DECEMBER 2022 Has responded to chemotherapy very well, Code(s): C80.1 - Malignant (primary) neoplasm, unspecified Category: Surgical Plan: CONTINUE FOLLOW-UP WITH ONCOLOGY. (3) Hypoxemia: Comment: SHE DOES HAVE EXERCISE INDUCED HYPOXEMIA, AND USES O2 2 L/MINUTE ONLY P.R.N., Code(s): R09.02 - Hypoxemia Category: Medical Plan: ABOVE Coding Level of Care Code Est Pt Level 3 (35395) Diagnoses COPD (chronic obstructive pulmonary disease) J44.9 Small cell carcinoma C80.1 Hypoxemia R09.02
== END 2024-01-20 09:54 | disposition home or self-care (01) ==
PROVIDERS: PCP Student in an Organized Health Care Education/Training Program; Visit Provider Internal Medicine
DX: J44.9 Chronic obstructive pulmonary disease, unspecified (principal); C80.1 Malignant (primary) neoplasm, unspecified; R09.02 Hypoxemia
CPT/HCPCS: 99213

== ENCOUNTER → 2024-01-20 09:19 | Outpatient (BNVA) | payer MEDICARE, MEDICAID, SELFPAY | PROVIDERS: PCP Student in an Organized Health Care Education/Training Program; Visit Provider Internal Medicine | DX: J44.9 Chronic obstructive pulmonary disease, unspecified (principal); R09.02 Hypoxemia; C80.1 Malignant (primary) neoplasm, unspecified | CPT/HCPCS: 99212 ==

== ENCOUNTER 2024-01-27 12:56 | Outpatient (REF) | payer MEDICARE, SELFPAY ==
--- NOTE | ~2024-01-27 | XR_ITS ---
EXAMINATION: XR SHOULDER, RIGHT CLINICAL INFORMATION: COMPARISON: None available. TECHNIQUE: AP external rotation, Grashey, scapular Y, and axillary views of the right shoulder. FINDINGS: The bones and soft tissues are normal. No fracture. Glenohumeral joint is unremarkable and there are degenerative changes at acromioclavicular joint and there is subchondral cysts visualized through the greater tuberosity is anatomic with normal joint space. No abnormal soft tissue calcifications. XR/XR shoulder RT min 2V IMPRESSION: Degenerative changes at the glenohumeral joint and acromioclavicular
== END 2024-01-27 12:57 | disposition home or self-care (01) ==
LOC: HO.XRAY 12:56
PROVIDERS: PCP Student in an Organized Health Care Education/Training Program; Visit Provider Internal Medicine Medical Oncology
DX: M75.01 Adhesive capsulitis of right shoulder (principal)
CPT/HCPCS: 73030

== ENCOUNTER 2024-02-05 09:18 | Outpatient (REF) | payer MEDICARE, SELFPAY ==
--- NOTE | ~2024-02-05 | CT_ITS ---
EXAMINATION: CT CHEST WITH CONTRAST CLINICAL INFORMATION: History of small cell carcinoma of the lung. COMPARISON: 10/21/2023 and 07/22/2023 TECHNIQUE: Multidetector volumetric CT imaging of the chest was obtained after the administration of 65 mL of Omnipaque 350 intravenous contrast without immediate adverse reactions. Axial MIP volume rendering provided. Sagittal and coronal reformatted images were obtained. This CT examination was performed using dose optimization techniques as appropriate, variously including the following: *Automated exposure control *Adjustment of mA and/or kV according to patient size (this includes techniques or standardized protocols for targeted exams where dose is matched to indication/reason for exam; i.e. extremities or head) *Use of iterative reconstruction technique DLP: 99 mGy-cm FINDINGS: LUNGS: Moderate centrilobular emphysema. Spiculated nodule in the right upper lobe measures 2.1 x 1.3 cm on image 51 of series 6. Previous measurements were. 2.1 x 1.3 cm on image 51 of series 6. There are spicules radiating to the pleura with retraction. There is right upper lobe bronchiectasis. Stable 6 mm left upper lobe nodule on image 43 series 6. Central airways are patent. MEDIASTINUM: No bulky, hilar or mediastinal lymphadenopathy. Pulmonary arteries are dilated. No pericardial effusion. Marked coronary artery calcifications. PLEURA: No pleural effusion. CHEST WALL: Right chest wall Port-A-Cath with tip in the SVC. UPPER ABDOMEN: Large gastric diverticulum. OSSEOUS STRUCTURES: No destructive bone lesions. CT/CT chest w IV con IMPRESSION: Stable spiculated nodule in the right upper lobe measuring 2.1 x 1.3 cm. Stable 6 mm left upper lobe nodule. No new or enlarging pulmonary nodules. Follow-up imaging per oncologic protocol.
[2024-02-05] MEDS: iohexoL 350 MG/ML 100 ML INFUS..BTL 65 ML IV (09:55)
== END 2024-02-05 09:19 | disposition home or self-care (01) ==
LOC: HO.CT 09:18
PROVIDERS: Visit Provider Internal Medicine Medical Oncology
DX: C34.90 Malignant neoplasm of unspecified part of unspecified bronchus or lung (principal)
CPT/HCPCS: 71260; Q9967

== ENCOUNTER 2024-05-01 09:03 | Outpatient (AMB) | payer MEDICARE, SELFPAY ==
--- NOTE | 2024-05-01 09:09 | A.OFFVIS_ITS ---
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 NO hx of injury. Patient reports having pain in both shoulders for many years and it is getting worse. She mentions that her right shoulder is worse than the left shoulder. No hx of previous treatment. Patient has tried and failed 3 + months of Tylenol and NSAIDs. She does find releif with her heated blanket. 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 The patient is referred by [facility] On[facility] and Hematology for further evaluation of right shoulder pain. X- rays of the right shoulder were obtained on 01/27/24. While in the office today, the patient reports experiencing bilateral shoulder pain, right shoulder worse than the left that has been ongoing for years and has been getting worse. She has tried and failed more than 3 months of Tylenol and NSAIDs. She does find relief with a heated blanket. She has not tried any other treatments in the past. The patient has a medical history of small cell carcinoma and has been following up with [facility] Medical History Anemia Hypoxemia Smoker COPD (chronic obstructive pulmonary disease) Diverticulosis Hypercholesteremia IBS (irritable bowel syndrome) HTN (hypertension) Surgical History Small cell carcinoma Hx of tonsillectomy Hx of appendectomy History of lumpectomy Lymphadenopathy, mediastinal Lung mass H/O colonoscopy Family History Sister Breast cancer Social History (Updated 05/01/24 @ 09:23 by Elvis Keene) Household Members: None Housing: Apartment Do you presently have visiting nurse or other home services: No Alcohol intake: never Patient Tobacco Use Status: Current everyday Tobacco user Tobacco use type: Cigarette Cigarette Packs Per Day: 2 Years Smoked: 45years e-Cigarette/Vaping Use: Currently Using Second Hand Smoke Exposure: No service: No Current occupational status: retired Review of Systems Const All systems reviewed & are unremarkable except as noted in HPI and below Physical Exam Vital Signs: BMI result Body Mass Index 21.5 Const General: cooperative and no acute distress Orientation/consciousness: patient oriented x3 Resp Effort & Inspection: normal respiratory effort and able to speak in complete sentences Cardio Peripheral pulses: Peripheral pulses 2+ throughout Skin General skin exam: no rashes or lesions noted Neuro General: patient oriented x3 Extrem Other: Bilateral shoulder: Normal to inspection. No ecchymosis, erythema, or edema. Full shoulder ROM in all planes. Positive cross-body reach. 4/5 strength with an empty can. Negative drop arm. NVI. Office Procedures AMB Joint Injection/Aspiration Joint Injection/Aspiration Primary Site: left shoulder Secondary Site: right knee Prep: site was prepped using aseptic technique, ethochloride spray was applied and injection warnings given Injected: 80 mg of, DepoMedrol, with 8 mL of (2% plain lido ) and in the subcromial space Approach Used: posterolateral Procedure: The patient tolerated the procedure well, but had some pain with the injection and there was some relief with the local anesthesia Coding 45064 - Large joint Procedure code (CPT) selection complete Assessment & Plan Assessment & Plan (1) Acromioclavicular joint arthritis: Comment: Right shoulder AC joint arthritis. Code(s): M19.019 - Primary osteoarthritis, unspecified shoulder Category: Medical (2) Painful arc syndrome of left shoulder: Code(s): M75.102 - Unspecified rotator cuff tear or rupture of left shoulder, not specified as traumatic Category: Medical (3) Painful arc syndrome of right shoulder: Code(s): M75.101 - Unspecified rotator cuff tear or rupture of right shoulder, not specified as traumatic Category: Medical Plan Ms. Felder is a 83-year-old right hand dominant female who presents in the office today, as a new patient, for an evaluation of right shoulder pain. The patient is referred by [facility] Oncology and Hematology for further evaluation of right shoulder pain. X-rays of the right shoulder were obtained on 01/27/24. While in the office today, the patient reports experiencing bilateral shoulder pain, right shoulder worse than the left that has been ongoing for years and has been getting worse. She has tried and failed more than 3 months of Tylenol and NSAIDs. She does find relief with a heated blanket. She has not tried any other treatments in the past. The patient has a medical history of small cell carcinoma and has been following up with [facility]. The patient was offered a cortisone injection in the bilateral shoulders with 80 mg of Depo-Medrol. The patient was explained the risks, benefits, and alternatives to receiving this injection. After receiving consent for the injection, the patient had the procedure done while in the office today. The patient tolerated the procedure well with no complication. Follow up will be PRN, or sooner if needed. X-rays of the right shoulder, obtained on 01/27/24, revealed: Degenerative changes at the glenohumeral joint and acromioclavicular. X-rays of the left shoulder, obtained prior chest x-ray from 01/27/24, was reviewed by me, Kate Ferreira PA-C, which showed negative for any acute fracture or dislocation. Patient Instructions: Scribed by Cele Burnett medical front desk coordinator, for Kate Ferreira PA-C on 05/01/24 at 9:50 am EST. Coding Level of Care Code New Pt Level 4 (68881) Diagnoses Acromioclavicular joint arthritis M19.019 Painful arc syndrome of left shoulder M75.102 Painful arc syndrome of right shoulder M75.101 CPT Codes Coding - 24310 Large joint: 17488 - Large joint ([id number])
[2024-05-01 09:23] VITALS: BMI 21.5
== END 2024-05-01 09:56 | disposition home or self-care (01) ==
PROVIDERS: PCP Student in an Organized Health Care Education/Training Program; Visit Provider Physician Assistant
DX: M19.011 Primary osteoarthritis, right shoulder (principal); M75.102 Unspecified rotator cuff tear or rupture of left shoulder, not specified as traumatic; M75.101 Unspecified rotator cuff tear or rupture of right shoulder, not specified as traumatic
CPT/HCPCS: 20610; 99204

== ENCOUNTER → 2024-05-01 09:03 | Outpatient (BNVA) | payer MEDICARE, SELFPAY | PROVIDERS: PCP Student in an Organized Health Care Education/Training Program; Visit Provider Physician Assistant | DX: M75.101 Unspecified rotator cuff tear or rupture of right shoulder, not specified as traumatic (principal); M75.102 Unspecified rotator cuff tear or rupture of left shoulder, not specified as traumatic; M19.011 Primary osteoarthritis, right shoulder | CPT/HCPCS: 20610; 99202; J1010; J2003 ==

== ENCOUNTER 2024-05-09 07:49 | Outpatient (REF) | payer MEDICARE, SELFPAY ==
[2024-05-09 09:37] LABS: Alanine Aminotransferase 9 U/L (0-31); Alkaline Phosphatase 97 U/L (39-117); Anion Gap 15 (12-20); Aspartate Amino Transferase 16 U/L (5-31); Bilirubin Direct 0.2 mg/dL (0.0-0.5); Bilirubin Total 0.3 mg/dL (0.0-1.0); Blood Urea Nitrogen 40 mg/dL (9-16); Calcium 9.5 mg/dL (8.4-10.2); Carbon Dioxide 29 mmol/L (22-29); Chloride 105 mmol/L (96-108); Cholesterol 158 mg/dL (<200); Estimated Glomerular Filt Rate 42; Glucose Random 77 mg/dL (60-115); HDL Cholesterol 67 mg/dL (>40); LDL Cholesterol Calculated 82 mg/dL (<100); Potassium 3.7 mmol/L (3.3-5.1); Sodium 145 mmol/L (135-145); Total Protein 6.9 g/dL (6.5-8.0); Triglycerides 48 mg/dL (<150)
== END 2024-05-09 07:50 | disposition home or self-care (01) ==
LOC: HO.LAB 07:49
PROVIDERS: PCP Student in an Organized Health Care Education/Training Program; Visit Provider Student in an Organized Health Care Education/Training Program
DX: I10 Essential (primary) hypertension (principal); E03.9 Hypothyroidism, unspecified
CPT/HCPCS: 36415; 80048; 80061; 80076

== ENCOUNTER 2024-05-14 09:25 | Outpatient (AMB) | payer MEDICARE, MEDICAID, SELFPAY ==
--- NOTE | 2024-05-14 09:34 | A.OFFVIS_ITS ---
Vital Signs 05/14/24 09:35 Height 5 ft 5 in Weight 125 lb 10.616 oz BMI 20.9 BP 98/54 L Blood Pressure Location Lt brachial Position Sitting Pulse 53 Pulse Source Pulse Oximeter Pulse Oximetry (%) 96 Oxygen Delivery Method Room Air Intake Visit Reasons: COPD Intake Note: pt is here for follow up and states she is feeling okay, still having chemo, ct scan in June, and next Saturday Mri of brain. and using oxygen prn short of breath. Breastfeeding Peer Counselor Required: No Allergies No Known Allergies [No Known Allergies*] Allergy (Verified 05/14/24 09:49) Medication List - Last Reconciled 05/14/24 by Janet Soliz MD albuterol sulfate 90 mcg/actuation (ProAir HFA) 2 puffs inhalation Q6H PRN alprazolam 0.25 mg PO BEDTIME PRN cetirizine mg PO PRN hydrochlorothiazide 25 mg PO BEDTIME levothyroxine 100 mcg PO DAILY pravastatin 20 mg PO BEDTIME Do you need a note to return to daycare/school/sports/work: No HPI HPI COPD: Details: 83 years old very pleasant female of a thin build, with past history of smoking. Has been treated successfully for small cell carcinoma of the right upper lobe. She remains on maintenance therapy with atezolizumab IV q.2 weeks. She is being followed by. Dr. Wolff very closely Breathing arizmendi has been stable with only minimal shortness of breath, and occasional bouts of cough for which she uses albuterol just as needed. She does have oxygen concentrator at home and uses p.r.n. during the daytime after some physical work and especially after taking a shower. Sleeps well at night and does not have to use oxygen at night. [facility] Medical History Anemia Hypoxemia Smoker COPD (chronic obstructive pulmonary disease) Diverticulosis Hypercholesteremia IBS (irritable bowel syndrome) HTN (hypertension) Surgical History Small cell carcinoma Hx of tonsillectomy Hx of appendectomy History of lumpectomy Lymphadenopathy, mediastinal Lung mass H/O colonoscopy Family History Sister Breast cancer Social History Household Members: None Housing: Apartment Do you presently have visiting nurse or other home services: No Alcohol intake: never Patient Tobacco Use Status: Current everyday Tobacco user Tobacco use type: Cigarette Cigarette Packs Per Day: 4 Years Smoked: 45years e-Cigarette/Vaping Use: Currently Using Second Hand Smoke Exposure: No service: No Current occupational status: retired Review of Systems Const All systems reviewed & are unremarkable except as noted in HPI and below Eyes Reports no additional complaints ENT Reports no additional complaints Card Denies chest pain, Denies irregular heart rhythm and Denies leg edema Resp Reports as per HPI GI Reports no additional complaints Reports no additional complaints Musc Reports no additional complaints Skin/Breast Reports system reviewed and no additional complaints, except as documented Neuro Reports no additional complaints Psych Reports no additional complaints Physical Exam Vital Signs: Last Vital Signs Pulse 53 05/14/24 09:35 BP 98/54 L 05/14/24 09:35 Pulse Ox 96 05/14/24 09:35 Oxygen Delivery Method Room Air 05/14/24 09:35 BMI result Body Mass Index 20.9 Const General: healthy appearing, comfortable, no acute distress, alert and awake Orientation/consciousness: patient oriented x3 HEENT Head: Yes normal to inspection General nose exam: No nasal polyps present and No nasal discharge present Face and sinus: Yes sinuses nontender Mouth: oropharynx normal Throat: Yes posterior oropharynx normal Eyes General: appearance normal, both eyes and all related structures Neck Neck: Yes normal visual inspection, Yes no lymphadenopathy, Yes trachea midline and Yes no JVD Thyroid: Thyroid normal Chest Chest palpation & inspection: normal inspection of the chest, normal palpation of entire chest wall and no tenderness Resp Other: Percussion note hyper-resonant. Breath sounds are slightly distant with prolonged expiratory phase. No wheezes or rhonchi . No creps. Cardio Palpation: normal PMI Rate: regular rate Rhythm: regular rhythm Heart sounds: no gallops and no murmurs Peripheral pulses: Peripheral pulses 2+ throughout GI Palpation (GI): Soft to palpation, nontender, No hepatosplenomegaly present and no masses Auscultation: normal bowel sounds Back/Spine/Pelvis Thoracic/Lumbar Spine: thoracic and lumbar spine normal to inspection Skin General skin exam: no rashes or lesions noted Neuro General: patient oriented x3 and no focal motor deficits Cranial nerves: Yes CN's II-XII intact bilaterally Extrem General: Yes normal to inspection, Yes no clubbing, cyanosis or edema and Yes no calf tenderness Psych Appearance: grossly normal and well kempt Speech and movement: Normal speech and movement present Results Reviewed Results Reviewed: Last CT scan of chest in January 2024 IMPRESSION: Stable spiculated nodule in the right upper lobe measuring 2.1 x 1.3 cm. Stable 6 mm left upper lobe nodule. No new or enlarging pulmonary nodules. Follow-up imaging per oncologic protocol. Assessment & Plan Assessment & Plan (1) COPD (chronic obstructive pulmonary disease): Comment: Chronic obstructive pulmonary disease, mild, and stable Code(s): J44.9 - Chronic obstructive pulmonary disease, unspecified Category: Medical Plan: Albuterol HFA 2 puffs Q 6 hours p.r.n. (2) Smoker: Comment: Past history of smoking for 45 pack years. 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 Code(s): R09.02 - Hypoxemia Category: Medical Plan: CONTINUE TO USE O2 ONLY P.R.N. DOES NOT NEED PORTABLE O2 BECAUSE SHE DOES NOT GO OUT TOO MUCH. Coding Level of Care Code Est Pt Level 3 (97626) Diagnoses COPD (chronic obstructive pulmonary disease) J44.9 Smoker F17.200 Small cell carcinoma C80.1 Hypoxemia R09.02
[2024-05-14 09:35] VITALS: BP 98/54; PULSE 53; O2SAT 96; BMI 20.9
== END 2024-05-14 09:55 | disposition home or self-care (01) ==
PROVIDERS: PCP Student in an Organized Health Care Education/Training Program; Visit Provider Internal Medicine
DX: J44.9 Chronic obstructive pulmonary disease, unspecified (principal); F17.200 Nicotine dependence, unspecified, uncomplicated; C80.1 Malignant (primary) neoplasm, unspecified; R09.02 Hypoxemia
CPT/HCPCS: 99213

== ENCOUNTER → 2024-05-14 09:25 | Outpatient (BNVA) | payer MEDICARE, MEDICAID, SELFPAY | PROVIDERS: PCP Student in an Organized Health Care Education/Training Program; Visit Provider Internal Medicine | DX: J44.9 Chronic obstructive pulmonary disease, unspecified (principal); R09.02 Hypoxemia; C80.1 Malignant (primary) neoplasm, unspecified; F17.210 Nicotine dependence, cigarettes, uncomplicated | CPT/HCPCS: 99212 ==

== ENCOUNTER → 2024-05-19 09:03 | Outpatient (BNV) | payer MEDICARE, MEDICAID, SELFPAY | PROVIDERS: PCP Student in an Organized Health Care Education/Training Program; Visit Provider Radiology Diagnostic Radiology | DX: C79.31 Secondary malignant neoplasm of brain (principal) | CPT/HCPCS: 70553 ==

== ENCOUNTER 2024-05-19 09:08 | Outpatient (REF) | payer MEDICARE, MEDICAID, SELFPAY ==
--- NOTE | ~2024-05-19 | MR_ITS ---
EXAMINATION: MR BRAIN WITHOUT AND WITH CONTRAST CLINICAL INFORMATION: Follow-up brain metastatic disease. History of small cell carcinoma of the lung. COMPARISON: MR brain 12/30/2023, 09/27/2023,04/04/2023. TECHNIQUE: Multiplanar, multisequence MRI of the brain was obtained before and after the intravenous administration of 5.5 mL Gadavist. Examination performed on a 1.5 Rukhsana Siemens unit. Standard sequences utilized. FINDINGS: There is no diffusion restriction. There is no intracranial hemorrhage, acute infarction, mass effect, or edema. Ventricles, sulci, and cisterns are normal in size and configuration for patient age. No shift of midline. No abnormal hemosiderin deposition is identified. There are a few scattered punctate and minimally confluent foci of white matter T2 hyperintensity in the periventricular, subcortical, and hemispheric deep white matter, nonspecific. 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 A few subtle foci of encephalomalacia also present in the left middle frontal gyrus, left parietal operculum, left posterior temporal lobe, left periatrial white matter superiorly, in the region of previously seen treated metastases. After the administration of contrast, no pathologic intra or extra-axial contrast enhancement is present to suggest new metastases or recurrence. Solitary 3 mm focus of enhancement left medial cerebellum (series 19, image 32), has no correlating signal abnormality on any other sequence and is likely vascular. 2 mm focus of enhancement in the distal right IAC, consistent with a tiny acoustic schwannoma. This is unchanged. Enhancing DVA again noted in the right cerebellar hemisphere superiorly. Midline structures appear normally formed. The pituitary gland appears normal. Posterior fossa structures appear normal. Cerebellar tonsils are appropriately located. Major flow voids are preserved within the skull base. The globes and orbital contents demonstrate bilateral lens replacements. No additional abnormalities. Paranasal sinuses are clear bilaterally. The mastoids and tympanic cavities are normally aerated. Extracranial soft tissues demonstrate no abnormalities. No suspicious bone marrow changes are evident. MR/MR head/brain wo/w con IMPRESSION: 1. No acute intracranial hemorrhage, acute infarction, mass effect, or edema. No definite evidence of new or recurrent metastatic disease. 2. A vague 3 mm focus of enhancement of the left medial cerebellum as detailed, has no correlating signal abnormality on any other sequence and is likely vascular in etiology. Attention on follow-up recommended. 3. Stable mild encephalomalacia in the right periventricular aranda radiata, and subtle foci of gliosis in the regions of previously identified metastatic disease. 4. Stable 2 mm focus of nodular enhancement in the distal right IAC, consistent with a tiny acoustic schwannoma. This is unchanged 5. Ancillary findings as discussed. Electronically signed by: Fab Julio MD 05/22/2024 10:27 AM [facility]
[2024-05-19] MEDS: gadobutroL 7.5 ML VIAL IVPUSH (10:15)
== END 2024-05-19 09:09 | disposition home or self-care (01) ==
LOC: HO.MRI 09:08
PROVIDERS: PCP Student in an Organized Health Care Education/Training Program; Visit Provider Internal Medicine Medical Oncology
DX: C79.31 Secondary malignant neoplasm of brain (principal)
CPT/HCPCS: 70553; A9585

== ENCOUNTER 2024-06-11 07:55 | Inpatient (IN) | payer MEDICARE, OTHER, SELFPAY ==
[2024-06-11] VITALS (14 sets, daily range): BP systolic 90–113; BP diastolic 44–60; PULSE 72–99; RESP 15–22; TEMP 36.4–37.3; O2SAT 85–99; BMI 46.6; BMI 21.4
--- NOTE | ~2024-06-11 | XR_ITS ---
EXAMINATION: XR CHEST CLINICAL INFORMATION: sob COMPARISON: CT chest dated 02/05/2024 TECHNIQUE: Frontal view of the chest was obtained. FINDINGS: Right-sided port noted with its tip in the SVC. The lungs appear hyperinflated. Previously noted stellate mass in the right upper lobe as seen on 02/05/2024 is less conspicuous but there does appear to be some volume loss and scarring and cicatrization in this region. A CT would be more helpful to reassess this area. There appears to be minimal areas of scarring at the left base likely chronic. A lateral view was not obtained. Heart size normal with normal caliber pulmonary vessels. cause analyst leads are present. XR/XR chest 1V IMPRESSION: Chronic residual changes in the right upper lung and apex. No active disease. Electronically signed by: Gabe Neff MD 06/11/2024 09:55 AM [facility]
--- NOTE | 2024-06-11 08:31 | ED_ITS ---
HPI - SOB/Dyspnea General Chief Complaint: Dyspnea Stated Complaint: Fever, cough, low oxygen Time Seen by Provider: 06/11/24 08:10 History of Present Illness HPI Narrative: Patient is an 83-year-old female with a history of lung cancer metastatic to the brain. Currently undergoing chemotherapy. Last chemo was 2 days prior. Presented today with having increasing coughing upper respiratory symptoms generalized malaise fever up to 102 at home. Baseline patient has COPD normally uses oxygen on an as-needed basis. Patient denies any pain on urination. But feels increasing short of breath coughing. Very weak. Vaccinated for COVID. Vaccinated for the flu. No chest pain no diaphoresis. Feels there is an increased need of oxygen. Related Data Home Medications ?Medication ?Instructions ?Recorded ?Confirmed hydrochlorothiazide 25 mg tablet 25 mg PO BEDTIME 12/13/21 01/20/24 pravastatin 20 mg tablet 20 mg PO BEDTIME 12/13/21 01/20/24 albuterol sulfate 90 mcg/actuation 2 puff inhalation Q6H PRN 02/06/22 01/20/24 aerosol inhaler (ProAir HFA) shortness of breath or wheeze levothyroxine 100 mcg tablet 100 mcg PO DAILY 05/01/24 cetirizine 10 mg tablet mg PO PRN 05/14/24 Previous Rx's ?Medication ?Instructions ?Recorded alprazolam 0.25 mg tablet 0.25 mg PO BEDTIME PRN Anxiety #30 05/12/24 tabs Allergies Allergy/AdvReac Type Severity Reaction Status Date / Time No Known Allergies Allergy Verified 06/11/24 08:09 [No Known Allergies*] Review of Systems 2 Review of Systems: Positive coughing congestion upper respiratory symptoms Yes all other systems are reviewed and are negative [facility] Past Medical History Attestation statement: The following information was validated with the patient. Medical History Anemia Hypoxemia Smoker COPD (chronic obstructive pulmonary disease) Diverticulosis Hypercholesteremia IBS (irritable bowel syndrome) HTN (hypertension) Surgical History Small cell carcinoma Hx of tonsillectomy Hx of appendectomy History of lumpectomy Lymphadenopathy, mediastinal Lung mass H/O colonoscopy Family History Family History Sister Breast cancer Social History Social History Household Members: None Housing: Apartment Do you presently have visiting nurse or other home services: No Alcohol intake: never Patient Tobacco Use Status: Current everyday Tobacco user Tobacco use type: Cigarette Cigarette Packs Per Day: 4 Years Smoked: 45years Smoked in Last 30 Days: No e-Cigarette/Vaping Use: Currently Using Second Hand Smoke Exposure: No Use of substances other than those prescribed or required for medical reasons: No Advance Directives: No Advance Directives Information Provided: Yes Do you have a plan to hurt others: No Plan service: No Current occupational status: retired Physical Exam 2 Vital Signs: Vital Signs: Last Vital Signs Temp 98.6 F 06/11/24 10:45 Pulse 75 06/11/24 10:32 Resp 18 06/11/24 10:32 BP 108/55 L 06/11/24 10:32 Pulse Ox 96 06/11/24 10:32 O2 Del Method Nasal Cannula 06/11/24 10:32 O2 Flow Rate 2 06/11/24 10:32 BMI result Body Mass Index 21.4 Appearance: Alert. Oriented X3. No acute distress. Eyes: Pupils equal, round and reactive to light. ENT: Pharynx normal. Neck: Normal inspection. Neck supple. No lymph nodes noted. No crepitus CVS: Normal heart rate and rhythm. Pulses normal. Normal S1 and S2 Respiratory: Diminished breath sounds bilaterally mild wheezing at the bases. Increased work of breathing Abdomen: Soft and nontender. No rigidity. No distention. good BS x4 Skin: Skin warm and dry. Normal skin color. Normal skin turgor. Extremities: No lower extremity edema. Neurovascular intact to all extremities. No Lacerations. No Rash Neuro: Oriented X 3. No motor deficit. No sensory deficit. Moving all extermities. No slurred speech Medications Administered Discontinued Medications Generic Name Dose Route Start Last Admin Trade Name Freq PRN Reason Stop Dose Admin Acetaminophen 650 mg 06/11/24 08:28 06/11/24 08:51 Acetaminophen 325 Mg Tablet PO 06/11/24 08:29 650 mg ONCE ONE Administration Dexamethasone Sodium Phosphate 10 mg 06/11/24 10:00 06/11/24 10:29 Dexamethasone Sod Phosphate 10 Mg/Ml Vial IVPUSH 06/11/24 10:01 10 mg ONCE ONE Administration Cefepime HCl 2 gm in 50 mls @ 100 mls/hr 06/11/24 08:22 06/11/24 09:33 Maxipime IV 06/11/24 08:51 Infused ONCE ONE Infusion Lactated Ringer's 3,810 mls @ 3,810 mls/hr 06/11/24 08:22 06/11/24 11:10 Lr 30 ml/kg infuse over 1 hr (3810 ml) 06/11/24 09:21 Infused IVCONT Infusion .Q1H ONE Lactated Ringer's 1,752 mls @ 1,752 mls/hr 06/11/24 10:58 06/11/24 08:45 Lr 30 ml/kg infuse over 1 hr (1752 ml) 06/11/24 11:57 1,752 mls/hr IVCONT Administration .Q1H ONE Medical Decision Making Medical Decision Making [facility] Narrative: Positive coughing upper respiratory symptoms with a history of small-cell lung cancer. Patient is currently getting chemotherapy every other Saturday the last time was 2 days ago. Positive generalized malaise fever was 102 today. Patient's lactate is normal. There is no evidence for severe sepsis. Patient's weight was corrected. Only approximately 1800 cc was given. Patient's given antibiotics. Flu COVID RSV was sent. Patient's COVID test came back positive. Likely causing patient's fever generalized malaise. Started on dose of Decadron as patient is hypoxic. Initially was given neb treatment. Patient to be admitted. Case discussed with the hospitalist team. My interpretation of patient's x-ray was grossly negative for any acute infiltrate. Differential Diagnosis Differential Diagnoses: The differential diagnosis associated with the presentation includes Pneumonia, severe sepsis, sepsis, COPD, COVID, flu, RSV Admission/Observation Consideration of admission/observation: Escalation of care including admission/observation considered Lab Data [facility] Lab Attestation statement: I reviewed the patient's lab results. 06/11/24 08:44 06/11/24 08:44 Labs: Lab Results 06/11/24 06/11/24 Range/Units 08:44 09:24 WBC 7.1 (4.8-10.8) X10*3/uL RBC 3.26 L (4.20-5.50) X10*6/uL Hgb 11.2 L (12.0-16.0) g/dl Hct 34.4 L (37.0-47.0) % MCV 105.5 H (80.0-98.0) fL MCH 34.4 H (27.0-33.0) pg MCHC 32.6 (31.0-35.0) g/dl RDW 13.9 (11.0-16.0) % Plt Count 200 (160-400) X10*3/uL MPV 9.6 (9.4-12.3) fL Immature Gran % (Auto) 1.5 H (0.0-0.4) % Neut % (Auto) 84.4 H (45-73) % Lymph % (Auto) 7.1 L (20-40) % [place] % (Auto) 6.0 (2-11) % Eos % (Auto) 0.7 (0-4) % Baso % (Auto) 0.3 (0-2) % Lymph # (Auto) 0.5 L (1.2-4.9) X10*3/uL [place] # (Auto) 0.4 (0.1-1.2) X10*3/uL Eos # (Auto) 0.1 (0.0-0.4) X10*3/uL Baso # (Auto) 0.0 (0.0-0.2) X10*3/uL Abs Immat Gran (auto) 0.11 H (0.00-0.03) X10*3/uL Absolute Neuts (auto) 6.0 (2.0-8.3) x10*3/uL Absolute Nucleated RBC 0.000 (0.0-0.012) X10*3/uL Nucleated RBC % (auto) 0.0 (0.0-0.2) /100WBC PT 12.1 (10.9-12.4) SEC INR 1.0 (0.9-1.1) Sodium 139 (135-145) mmol/L Potassium 3.4 (3.3-5.1) mmol/L Chloride 102 (96-108) mmol/L Carbon Dioxide 28 (22-29) mmol/L Anion Gap 12 (12-20) BUN 33 H (9-16) mg/dL Creatinine 1.59 H (0.5-1.4) mg/dL Estim Creat Clear Calc 36.6 Estimated GFR 31 Random Glucose 97 (60-115) mg/dL Lactic Acid 0.9 (0.5-2.0) mmol/L Calcium 8.9 D (8.4-10.2) mg/dL Total Bilirubin 0.4 (0.0-1.0) mg/dL Direct Bilirubin 0.3 (0.0-0.5) mg/dL AST 23 (5-31) U/L ALT < 6 (0-31) U/L Alkaline Phosphatase 61 (39-117) U/L Total Protein 6.6 (6.5-8.0) g/dL Albumin 3.6 (3.5-5.0) g/dL Urine Color Yellow Urine Appearance Cloudy Urine pH 5.5 (5.0-9.0) Ur Specific [place] 1.015 (1.005-1.025) Urine Protein Negative (Neg-Trace) mg/dL Urine Glucose (UA) Negative (Negative) mg/dL Urine Ketones Negative (Negative) mg/dL Urine Blood Negative (Negative) Urine Nitrite Negative (Negative) Ur Leukocyte Esterase Small (1+) H (Negative) Urine RBC 0-2 (0-2) /HPF Urine WBC 0-5 (0-5) /HPF Ur Squamous Epith Cells 0-2 (0-2) /HPF Urine Bacteria None Seen (None Seen) Hyaline Casts 0-2 (0-2) /LPF Influenza Type A (PCR) NEGATIVE (Negative) Influenza Type B (PCR) NEGATIVE (Negative) RSV RNA Qual (PCR) NEGATIVE (Negative) SARS-CoV-2 RNA (RT-PCR) POSITIVE A (Negative) Independent Interpretation I performed an independent interpretation of an: Plain X-Ray (My interpretation of patient's chest x-ray was grossly negative for infiltrates) Radiology Impression Discussion of test interpretation with radiology: I have reviewed the radiologist's reading. Independent Historian Clinical information obtained from an independent historian. History obtained from or confirmed by: Other (Additional history obtained through family) External Record Review External record reviewed: Inpatient record Critical Care Time Critical Care Time Critical Care Time: Yes Total Critical Care Time: 40 Attestation: att Discharge Plan Discharge Clinical Impression: COPD (chronic obstructive pulmonary disease), COVID Patient Disposition: Admitted As Inpatient Print Language: Serbian
[2024-06-11] MEDS: LACTATED RINGERS 3810 ML IVCONT (08:45)
[2024-06-11] MEDS: LACTATED RINGERS 1752 ML IVCONT (08:45)
[2024-06-11] MEDS: cefEPime HCl/D5W 2 GM/50 ML PIGGYBACK IV (08:45)
[2024-06-11] MEDS: Acetaminophen 325 MG TABLET 650 MG PO (08:51)
[2024-06-11 08:53] LABS: MANUAL DIFF FLAG NO
[2024-06-11 08:59] LABS: Basophils Percent Auto 0.3 % (0-2); Eosinophils Absolute Auto 0.1 X10*3/uL (0.0-0.4); Eosinophils Percent Auto 0.7 % (0-4); Hematocrit 34.4 % (37.0-47.0); Hemoglobin 11.2 g/dl (12.0-16.0); Imm Gran Abs Auto 0.11 X10*3/uL (0.00-0.03); Imm Gran Pct Auto 1.5 % (0.0-0.4); Lymphocytes Absolute Auto 0.5 X10*3/uL (1.2-4.9); Lymphocytes Percent Auto 7.1 % (20-40); Mean Corpuscular HGB Conc 32.6 g/dl (31.0-35.0); Mean Corpuscular Hemoglobin 34.4 pg (27.0-33.0); Mean Corpuscular Volume 105.5 fL (80.0-98.0); Mean Platelet Volume 9.6 fL (9.4-12.3); Monocytes Absolute Auto 0.4 X10*3/uL (0.1-1.2); Neutrophils Percent Auto 84.4 % (45-73); Platelet Count 200 X10*3/uL (160-400); Red Blood Count 3.26 X10*6/uL (4.20-5.50); Red Cell Distribution Width 13.9 % (11.0-16.0); White Blood Count 7.1 X10*3/uL (4.8-10.8)
[2024-06-11 09:00] LABS: Prothrombin Time 12.1 SEC (10.9-12.4)
[2024-06-11 09:11] LABS: Lactic Acid 0.9 mmol/L (0.5-2.0)
[2024-06-11 09:12] LABS: Alanine Aminotransferase < 6 U/L (0-31); Albumin Level 3.6 g/dL (3.5-5.0); Alkaline Phosphatase 61 U/L (39-117); Anion Gap 12 (12-20); Aspartate Amino Transferase 23 U/L (5-31); Bilirubin Direct 0.3 mg/dL (0.0-0.5); Bilirubin Total 0.4 mg/dL (0.0-1.0); Blood Urea Nitrogen 33 mg/dL (9-16); Calcium 8.9 mg/dL (8.4-10.2); Carbon Dioxide 28 mmol/L (22-29); Chloride 102 mmol/L (96-108); Creatinine Clr Calc Pharmacy 36.6; Estimated Glomerular Filt Rate 31; Glucose Random 97 mg/dL (60-115); Potassium 3.4 mmol/L (3.3-5.1); Sodium 139 mmol/L (135-145); Total Protein 6.6 g/dL (6.5-8.0)
[2024-06-11 09:37] LABS: Appearance Urine Cloudy; Color Urine Yellow; Glucose Urine UA Negative (Negative); Leukocyte Esterase Urine Small (1+) (Negative); Nitrite Urine Negative (Negative); PH 5.5 (5.0-9.0); Specific Gravity - Urine 1.015 (1.005-1.025); UMIC TRIGGER UACC YES; Urine Blood Negative (Negative); Urine Ketones Negative (Negative); Urine Protein Negative (Neg-Trace)
[2024-06-11 09:48] LABS: Influenza A PCR NEGATIVE (Negative); Influenza B PCR NEGATIVE (Negative); Resp Syncy Virus RNA Qual PCR NEGATIVE (Negative); SARS COV2 PCR INHOUSE POSITIVE (Negative)
[2024-06-11 09:52] LABS: Bacteria Urine None Seen (None Seen); Hyaline Casts Urine 0-2 /LPF (0-2); RBC Urine 0-2 /HPF (0-2); Squamous Epithelial Cell Urine 0-2 /HPF (0-2); UACC Culture Trigger YES; WBC Urine 0-5 /HPF (0-5)
[2024-06-11] MEDS: dexAMETHasone sod phosphate 10 MG/ML VIAL IVPUSH (10:29)
--- NOTE | 2024-06-11 10:48 | PC.NURSE ---
Sepsis fluids order changed d/t updated pt weight. [facility] aware of change.
--- NOTE | 2024-06-11 11:01 | PC.NURSE ---
Sepsis fluids order changed to reflect pt accurate weight of 58.4kg. Pt to receive 1,752ml/hr of LR. MAR updated to reflect accurate fluid intake.
--- NOTE | 2024-06-11 11:16 | PM.IMHP ---
History of Present Illness Date of Service: 06/11/24 Attending physician on admission: Pete Elaine Chief Complaint: SOB, fever Pt is an 83-year-old female with a PMH significant for?HTN, HLD, COPD, 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 Wolff, on 2L home O2 prn, and current everyday smoker who presents to the ED with?weakness, SOB, cough, rhinorrhea and fever x3-4 days. Patient is accompanied by do not develop supplement HPI. Under reports patient has been feeling weak and tired, not wanting to move around and just sleeping all day for the past 3-4 days. Last night patient has spiked a fever 102.1. Symptoms did not improve this morning which prompted visit to the ED. currently receiving biweekly chemotherapy for small cell lung cancer. Follows with Dr. Wolff. Curerntly smokes around 6 cigarettes a day. No chest pain/pressure, palpitations. Denies nausea, vomiting, abdominal pain. No diarrhea. Denies headache. In the ED pt with elevated heart rate of 96, respiratory rate 22, soft BP as low as 90/44, elevated temp of 99.2 degrees, and hypoxic at 85% on RA. Noted to desat into 70s on RA after ambulation to the bathroom. Labs were significant for testing positive for COVID and elevated creatinine of 1.59 (baseline around 1.2). No leukocytosis. Stable H&H. No significant electrolyte abnormalities. Acid WNL. Hepatic function baseline. UA negative for UTI. CXR negative for active disease. Pt was treated with cefepime, IVF, acetaminophen, and dexamethasone. Pt will be admitted to the hospital for treatment and further evaluation of acute hypoxic respiratory failure in the setting of COVID infection. Review of Systems Review of Systems: Negative except for that which is stated in the HPI [facility] Medical History Anemia Hypoxemia Smoker COPD (chronic obstructive pulmonary disease) Diverticulosis Hypercholesteremia IBS (irritable bowel syndrome) HTN (hypertension) Family History Sister Breast cancer Surgical History Small cell carcinoma Hx of tonsillectomy Hx of appendectomy History of lumpectomy Lymphadenopathy, mediastinal Lung mass H/O colonoscopy Social History Household Members: None Housing: Apartment Do you presently have visiting nurse or other home services: No Alcohol intake: never Patient Tobacco Use Status: Current everyday Tobacco user Tobacco use type: Cigarette Cigarette Packs Per Day: 4 Years Smoked: 45years Smoked in Last 30 Days: No e-Cigarette/Vaping Use: Currently Using Second Hand Smoke Exposure: No Use of substances other than those prescribed or required for medical reasons: No Advance Directives: No Advance Directives Information Provided: Yes Do you have a plan to hurt others: No Plan service: No Current occupational status: retired [employer] Allergies Allergy/AdvReac Type Severity Reaction Status Date / Time No Known Allergies Allergy Verified 06/11/24 08:09 [No Known Allergies*] Active Medications: Current Medications Lactated Ringer's (Lr) 1,752 mls @ 1,752 mls/hr 30 ml/kg infuse over 1 hr (1752 ml) IVCONT .Q1H ONE Stop: 06/11/24 11:57 Last Admin: 06/11/24 08:45 Dose: 1,752 mls/hr Home Medications ?Medication ?Instructions ?Recorded ?Confirmed ?Last Taken ?Type hydrochlorothiazide 25 mg tablet 25 mg PO BEDTIME 12/13/21 01/20/24 12/12/21 History pravastatin 20 mg tablet 20 mg PO BEDTIME 12/13/21 01/20/24 12/12/21 History albuterol sulfate 90 mcg/actuation 2 puff inhalation Q6H PRN 02/06/22 01/20/24 Unknown History aerosol inhaler (ProAir HFA) shortness of breath or wheeze levothyroxine 100 mcg tablet 100 mcg PO DAILY 05/01/24 Unknown History cetirizine 10 mg tablet mg PO PRN 05/14/24 Unknown History Physical Exam Vital Signs and Narrative: Vital Signs: Last Vital Signs Temp 98.6 F 06/11/24 10:45 Pulse 75 06/11/24 10:32 Resp 18 06/11/24 10:32 BP 108/55 L 06/11/24 10:32 Pulse Ox 96 06/11/24 10:32 O2 Del Method Nasal Cannula 06/11/24 10:32 O2 Flow Rate 2 12/19/24 10:32 BMI result Body Mass Index 21.4 General: AOx3, no acute distress Resp: CTA bilaterally though diminished. CVS: S1, S2, RRR GI: +BS, NT, no distention Skin: Warm, dry Neuro: Cranial nerves II-XII grossly intact bilaterally. Motor grossly intact bilaterally Extremities: No edema Psych: Appropriate affect Results Labs 06/11/24 08:44 06/11/24 08:44 Labs: Laboratory Results - last 24 hr 06/11/24 06/11/24 08:44 09:24 MCV 105.5 H MCH 34.4 H MCHC 32.6 RDW 13.9 Plt Count 200 MPV 9.6 Immature Gran % (Auto) 1.5 H Neut % (Auto) 84.4 H Lymph % (Auto) 7.1 L [place] % (Auto) 6.0 Eos % (Auto) 0.7 Baso % (Auto) 0.3 Lymph # (Auto) 0.5 L [place] # (Auto) 0.4 Eos # (Auto) 0.1 Baso # (Auto) 0.0 Abs Immat Gran (auto) 0.11 H Absolute Neuts (auto) 6.0 Absolute Nucleated RBC 0.000 Nucleated RBC % (auto) 0.0 PT 12.1 INR 1.0 Anion Gap 12 Estim Creat Clear Calc 36.6 Estimated GFR 31 Random Glucose 97 Lactic Acid 0.9 Calcium 8.9 D Total Bilirubin 0.4 Direct Bilirubin 0.3 AST 23 ALT < 6 Alkaline Phosphatase 61 Total Protein 6.6 Albumin 3.6 Urine Color Yellow Urine Appearance Cloudy Urine pH 5.5 Ur Specific [place] 1.015 Urine Protein Negative Urine Glucose (UA) Negative Urine Ketones Negative Urine Blood Negative Urine Nitrite Negative Ur Leukocyte Esterase Small (1+) H Urine RBC 0-2 Urine WBC 0-5 Ur Squamous Epith Cells 0-2 Urine Bacteria None Seen Hyaline Casts 0-2 Influenza Type A (PCR) NEGATIVE Influenza Type B (PCR) NEGATIVE RSV RNA Qual (PCR) NEGATIVE SARS-CoV-2 RNA (RT-PCR) POSITIVE A Imaging Radiologist's Impressions: Impressions Chest X-Ray 06/11/24 08:22 IMPRESSION: Chronic residual changes in the right upper lung and apex. No active disease. Electronically signed by: Gabe Neff MD 06/11/2024 09:55 AM EST Assessment and Plan (1) COVID: Status: Acute (2) Acute and chronic respiratory failure with hypoxia: Status: Acute Plan Pt is an 83-year-old female with a PMH significant for?HTN, HLD, hypothyroidism, COPD, 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 Wolff, on 2L home O2 prn, and current everyday smoker who presents to the ED with?weakness, SOB, cough, rhinorrhea and fever x3-4 days. Pt will be admitted to the hospital for treatment and further evaluation of acute hypoxic respiratory failure in the setting of COVID infection. Acute on chronic hypoxic respiratory failure in setting of COVID infection Pt with weakness, lethargy, fever, SOB, cough x3-4 days Desatting to 85% on RA at rest, into 70s with ambulation Will treat with dexamethasone, breathing treatments, guaifenesin Titrate supplemental O2 >90, wean as tolerated; pt only on prn home O2 Monitor respiratory status Viral sepsis Tachycardia and tachypnea secondary to viral COVID infection No indication for antibiotics at this time Treat as above HTN Hold hydrochlorothiazide due to soft BP Resume as warranted HLD Continue statin Hypothyroidism Continue levothyroxine Full Code Attending:? DVT Prophylaxis: Lovenox Given patient's immunocompromised state currently on biweekly chemotherapy for small cell lung cancer, pt will require a hospitalization of at least two nights for treatment of?acute on chronic hypoxemic respiratory failure in the setting of COVID infection. Patient will receive IV steroids, breathing treatments, and close monitoring of vitals. Quality Stroke Does the patient have a stroke diagnosis?: No VTE Prior VTE?: No VTE Risk Level:: Medical - moderate - high VTE Device Contraindication: Treatment Not Indicated VTE Drug Contraindication: N/A - Med Ordered
[2024-06-11] MEDS: Albuterol/Iprat 2.5/0.5MG 3 ML AMPUL.NEB INHALE ×3 (13:00→19:35)
[2024-06-11] MEDS: Enoxaparin Sodium 40 MG/0.4 ML SYRINGE SUBCUT (13:03)
--- NOTE | 2024-06-11 13:31 | PHA.MEDREC ---
Addendum entered by Chava Rubalcava RP 06/11/24 13:40: MED REC CHECKED BY [facility] Original Note: Pharmacy Consult ? Medication Reconciliation Pharmacy has completed the medication reconciliation. Spoke to patients daughter Lamar over the phone to confirm med list. Daughter states patient Levothyroxine is 112 mcg, patients is on Gemfibrozil 600 mg .
[2024-06-11] MEDS: 0.9 % Sodium Chloride Flush 3 ML SYRINGE IVFLUSH ×2 (13:45→20:31)
--- NOTE | 2024-06-11 15:53 | HO.WOUND ---
Wound Consult: Initial 83yr old female admitted to [facility] on 06/11/24 - See progress notes and H&P for detailed history.? Wound consult placed for Right hand skin tear / abrasion.? Arrival to unit discussed with direct care nurse. no concerns for wound infection or bleeding are noted - dry wound bed. She applied xeroform and gauze wrap to the right hand. No new topical recommendations needed. If concerns for infection or bleeding are noted informed to reconsult wound care nurse. Recommendations: 1. Right Hand - Cleanse with NS moist gauze, Pat dry. Apply skin prep allow to dry, apply xeroform to wound bed cover with dry gauze, and wrap. Change daily. Re-consult wound care Nurse for wound deterioration or wound changes.
[2024-06-11] MEDS: gemfibroziL 600 MG TABLET PO (20:31)
[2024-06-11] MEDS: Pravastatin Sodium 20 MG TABLET PO (20:31)
[2024-06-12] VITALS (8 sets, daily range): BP systolic 101–134; BP diastolic 52–76; PULSE 68–87; RESP 18–20; TEMP 36.3–37.3; O2SAT 94–100
[2024-06-12] MEDS: Levothyroxine Sodium 112 MCG TABLET PO (05:14)
[2024-06-12] MEDS: Acetaminophen 325 MG TABLET 650 MG PO (05:15)
[2024-06-12] MEDS: Benzonatate 100 MG CAPSULE 200 MG PO ×2 (06:09→16:37)
[2024-06-12 06:45] LABS: Alanine Aminotransferase < 6 U/L (0-31); Albumin Level 3.3 g/dL (3.5-5.0); Alkaline Phosphatase 65 U/L (39-117); Anion Gap 15 (12-20); Aspartate Amino Transferase 20 U/L (5-31); Bilirubin Total 0.3 mg/dL (0.0-1.0); Blood Urea Nitrogen 27 mg/dL (9-16); Calcium 8.5 mg/dL (8.4-10.2); Carbon Dioxide 28 mmol/L (22-29); Chloride 103 mmol/L (96-108); Creatinine Clr Calc Pharmacy 31.5; Estimated Glomerular Filt Rate 41; Glucose Random 82 mg/dL (60-115); Potassium 3.5 mmol/L (3.3-5.1); Sodium 142 mmol/L (135-145); Total Protein 6.1 g/dL (6.5-8.0)
--- NOTE | 2024-06-12 08:22 | HO.PM.IMPN ---
Subjective Subjective Date of Service: 06/12/24 Interval History: Follow-up on acute hypoxic respiratory failure chronic respiratory failure in the setting of acute COVID. Hypoxia seems to have improved, she is feeling better Physical Exam Vital Signs: Vital Signs: Last Vital Signs Temp 98.2 F 06/12/24 07:57 Pulse 68 06/12/24 07:57 Resp 18 06/12/24 07:57 BP 101/58 L 06/12/24 07:57 Pulse Ox 97 06/12/24 07:57 O2 Del Method Nasal Cannula 06/12/24 07:57 O2 Flow Rate 2 06/12/24 07:57 BMI result Body Mass Index 21.4 Const: Other: General: AO X 3, no acute distress Resp: CTA bilateral CVS: S1,S2,RRR GI: +BS, NT, no distention Skin: No rash Neuro: motor grossly intact Psych: appropriate affect Objective Data Active Medications Acetaminophen (Acetaminophen 325 Mg Tablet) 650 mg PO Q6H PRN PRN Reason: Pain, Mild (Pain Scale 1-3), fever or headache Last Admin: 06/12/24 05:15 Dose: 650 mg Documented By: DIAMANTE Albuterol/Ipratropium (Albuterol/Iprat 2.5/0.5mg 3 Ml Ampul.Neb) 3 ml INHALE RQ4H WHILE AWAKE PRN PRN Reason: Shortness of Breath/Wheezing Alprazolam (Alprazolam 0.25 Mg Tablet) 0.25 mg PO BEDTIME PRN PRN Reason: Anxiety Benzonatate (Benzonatate 100 Mg Capsule) 200 mg PO TID PRN PRN Reason: Cough Last Admin: 06/12/24 06:09 Dose: 200 mg Documented By: DIAMANTE Calcium Carbonate (Calcium Carbonate 750 Mg Tab.Chew) 750 mg PO Q4H PRN PRN Reason: Heartburn Dexamethasone Sodium Phosphate (Dexamethasone Sod Phosphate 4 Mg/Ml Vial) 6 mg IVPUSH DAILY [facility] Enoxaparin Sodium (Enoxaparin Sodium 40 Mg/0.4 Ml Syringe) 40 mg SUBCUT Q24H [facility] Last Admin: 06/11/24 13:03 Dose: 40 mg Documented By: SANYA Gemfibrozil (Gemfibrozil 600 Mg Tablet) 600 mg PO BID [facility] Last Admin: 12/19/24 20:31 Dose: 600 mg Documented By: DIAMANTE Levothyroxine Sodium (Levothyroxine Sodium 112 Mcg Tablet) 112 mcg PO DAILY@0600 [facility] Last Admin: 06/12/24 05:14 Dose: 112 mcg Documented By: DIAMANTE Magnesium Hydroxide (Milk Of Magnesia 30 Ml Oral.Susp) 30 ml PO DAILY PRN PRN Reason: Constipation Melatonin (Melatonin 3 Mg Tablet) 6 mg PO BEDTIME PRN PRN Reason: Insomnia Ondansetron HCl (Ondansetron Hcl 4 Mg/2 Ml Vial) 4 mg IVPUSH Q8H PRN PRN Reason: Nausea and Vomiting Pravastatin Sodium (Pravastatin Sodium 20 Mg Tablet) 20 mg PO BEDTIME [facility] Last Admin: 06/11/24 20:31 Dose: 20 mg Documented By: DIAMANTE Sodium Chloride (0.9 % Sodium Chloride Flush 3 Ml Syringe) 3 ml IVFLUSH QSHIFT [facility] Last Admin: 06/11/24 20:31 Dose: 3 ml Documented By: DIAMANTE Labs 06/11/24 08:44 06/12/24 05:44 Labs: Laboratory Results - last 24 hr 06/11/24 06/11/24 06/12/24 08:44 09:24 05:44 MCV 105.5 H MCH 34.4 H MCHC 32.6 RDW 13.9 Plt Count 200 MPV 9.6 Immature Gran % (Auto) 1.5 H Neut % (Auto) 84.4 H Lymph % (Auto) 7.1 L [place] % (Auto) 6.0 Eos % (Auto) 0.7 Baso % (Auto) 0.3 Lymph # (Auto) 0.5 L [place] # (Auto) 0.4 Eos # (Auto) 0.1 Baso # (Auto) 0.0 Abs Immat Gran (auto) 0.11 H Absolute Neuts (auto) 6.0 Absolute Nucleated RBC 0.000 Nucleated RBC % (auto) 0.0 PT 12.1 INR 1.0 Anion Gap 12 15 Estim Creat Clear Calc 36.6 31.5 Estimated GFR 31 41 Random Glucose 97 82 Lactic Acid 0.9 Calcium 8.9 D 8.5 Total Bilirubin 0.4 0.3 Direct Bilirubin 0.3 AST 23 20 ALT < 6 < 6 Alkaline Phosphatase 61 65 Total Protein 6.6 6.1 L Albumin 3.6 3.3 L Urine Color Yellow Urine Appearance Cloudy Urine pH 5.5 Ur Specific [place] 1.015 Urine Protein Negative Urine Glucose (UA) Negative Urine Ketones Negative Urine Blood Negative Urine Nitrite Negative Ur Leukocyte Esterase Small (1+) H Urine RBC 0-2 Urine WBC 0-5 Ur Squamous Epith Cells 0-2 Urine Bacteria None Seen Hyaline Casts 0-2 Influenza Type A (PCR) NEGATIVE Influenza Type B (PCR) NEGATIVE RSV RNA Qual (PCR) NEGATIVE SARS-CoV-2 RNA (RT-PCR) POSITIVE A Assessment and Plan (1) COVID: Status: Acute Plan 83-year-old female with a PMH significant for?HTN, HLD, hypothyroidism, COPD, 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 Wolff, on 2L home O2 prn, and current everyday smoker who presents to the ED with?weakness, SOB, cough, rhinorrhea and fever x3-4 days. Pt will be admitted to the hospital for treatment and further evaluation of acute hypoxic respiratory failure in the setting of COVID infection. Acute on chronic hypoxic respiratory failure in setting of COVID infection -O2 as needed, treat underlying covid Viral sepsis d/t covid, resolved -Dexamethasone for covid -O2, aim for sat 94% HTN, BP on low side hold HCTZ HLD Continue statin Hypothyroidism Continue levothyroxine Lung CA, outpatient follow Weakness d/t covid -PT eval Full Code DVT Prophylaxis: Lovenox need for inpt: covid with hypoxia Quality Stroke Does the patient have a stroke diagnosis?: No VTE Prior VTE?: No VTE Risk Level:: Medical - moderate - high VTE Device Contraindication: Treatment Not Indicated VTE Drug Contraindication: N/A - Med Ordered
[2024-06-12] MEDS: gemfibroziL 600 MG TABLET PO ×2 (09:14→20:29)
[2024-06-12] MEDS: dexAMETHasone sod phosphate 4 MG/ML VIAL 6 MG IVPUSH (09:15)
[2024-06-12] MEDS: 0.9 % Sodium Chloride Flush 3 ML SYRINGE IVFLUSH ×3 (09:15→20:32)
--- NOTE | 2024-06-12 11:54 | MHC.CM.PN ---
IMM 06/12/24, Pt. lives alone, she does not have home care services, for DME, she has home O2. She has used [facility] in the past. HCP discussed she declined to complete form. Dtr to transport home at DC. PT rec. pul. rehab, pt. said she wants to go home. Dtr to discuss with PT. CM to follow for DC plan.
[2024-06-12] MEDS: Enoxaparin Sodium 40 MG/0.4 ML SYRINGE SUBCUT (12:48)
[2024-06-12] MEDS: Pravastatin Sodium 20 MG TABLET PO (20:29)
[2024-06-13 04:00] VITALS: BP 109/61; PULSE 110; RESP 18; TEMP 37.8; O2SAT 93
[2024-06-13] MEDS: Levothyroxine Sodium 112 MCG TABLET PO (06:15)
[2024-06-13 07:42] VITALS: BP 111/64; PULSE 93; RESP 16; TEMP 36.4; O2SAT 95
[2024-06-13] MEDS: gemfibroziL 600 MG TABLET PO (08:33)
[2024-06-13] MEDS: Benzonatate 100 MG CAPSULE 200 MG PO (08:33)
[2024-06-13] MEDS: dexAMETHasone sod phosphate 4 MG/ML VIAL 6 MG IVPUSH (08:33)
[2024-06-13] MEDS: 0.9 % Sodium Chloride Flush 3 ML SYRINGE IVFLUSH (08:34)
--- NOTE | 2024-06-13 10:31 | P.DS_ITS ---
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 Wolff, on 2L home O2 prn, and current everyday smoker who presents to the ED with?weakness, SOB, cough, rhinorrhea and fever x3-4 days. Patient is accompanied by do not develop supplement HPI. Under reports patient has been feeling weak and tired, not wanting to move around and just sleeping all day for the past 3-4 days. Last night patient has spiked a fever 102.1. Symptoms did not improve this morning which prompted visit to the ED. currently receiving biweekly chemotherapy for small cell lung cancer. Follows with Dr. Wolff. Curerntly smokes around 6 cigarettes a day. No chest pain/pressure, palpitations. Denies nausea, vomiting, abdominal pain. No diarrhea. Denies headache. In the ED pt with elevated heart rate of 96, respiratory rate 22, soft BP as low as 90/44, elevated temp of 99.2 degrees, and hypoxic at 85% on RA. Noted to desa t into 70s on RA after ambulation to the bathroom. Labs were significant for testing positive for COVID and elevated creatinine of 1.59 (baseline around 1.2). No leukocytosis. Stable H&H. No significant electrolyte abnormalities. Acid WNL. Hepatic function baseline. UA negative for UTI. CXR negative for active disease. Pt was treated with cefepime, IVF, acetaminophen, and dexamethasone. Pt will be admitted to the hospital for treatment and further evaluation of acute hypoxic respiratory failure in the setting of COVID infection. Hospital course: The patient presented to the hospital with fever and shortness of breath. Chest X-ray showed no acute findings. She tested positive for COVID-19 and was initially found to be hypoxic with an oxygen saturation of 85% on room air. The patient uses oxygen at home as needed. She was admitted for further management of acute hypoxic respiratory failure due to COVID-19 and was treated with dexamethasone. She continued on oxygen and has not demonstrated any further episodes of hypoxia. She reports feeling well. Physical therapy evaluated the patient and recommended pulmonary rehabilitation, but she declined in favor of returning home. She will be discharged with instructions to complete a 10-day course of dexamethasone 6 mg daily for COVID-19 with hypoxia. She is advised to use O2 continuously at 2 liters, rather than PRN Time Attestation Discharge Coordination Time (in mins): 35 Quality: Safe Use of Opioids Does Pt have an Active Cancer Diagnosis on the Problem List?: No Quality: Stroke Does the patient have a stroke diagnosis?: No Physical Exam Vital Signs: Vital Signs: Last Vital Signs Temp 97.6 F 06/13/24 07:42 Pulse 93 06/13/24 07:42 Resp 16 06/13/24 07:42 BP 111/64 06/13/24 07:42 Pulse Ox 95 06/13/24 07:42 O2 Del Method Nasal Cannula 06/13/24 07:42 O2 Flow Rate 2 06/13/24 07:42 BMI result Body Mass Index 21.4 Const: Other: General: AO X 3, no acute distress Resp: CTA bilateral CVS: S1,S2,RRR GI: +BS, NT, no distention Skin: No rash Neuro: motor grossly intact Psych: appropriate affect DS: Data Data Completed and Pending Labs on day of discharge: Preliminary micro results at discharge 06/11/24 08:44 Blood Culture - Preliminary Blood - Venous No growth after 24 hours. 06/11/24 08:44 Blood Culture - Preliminary Blood - Venous No growth after 24 hours. Discharge Plan Discharge Anticipated Discharge Date/Time: 06/13/24 10:16 Patient Disposition: Home Health Service Discharge Diagnosis: Acute on chronic respiratory failure, covid 19 Referrals: [facility] [Outside] - 1 Week Sarah Mathews MD [Primary Care Provider] - 1 Week Discharge Medications: New dexamethasone 6 mg tablet 6 mg PO DAILY Qty: 7 0RF Continued hydrochlorothiazide 25 mg Tablet 25 mg PO BEDTIME pravastatin 20 mg Tablet 20 mg PO BEDTIME levothyroxine 112 mcg tablet 112 mcg PO DAILY gemfibrozil 600 mg tablet 600 mg PO BID alprazolam 0.25 mg Tablet 0.25 mg PO BEDTIME PRN (Reason: Anxiety) Qty: 30 0RF albuterol sulfate [ProAir HFA] 90 mcg/actuation HFA aerosol inhaler 2 puff inhalation Q6H PRN (Reason: shortness of breath or wheeze) Discharge Orders: Discharge Order (Routine); Ordered 06/13/24 Ordered By: Abdiel Sanford Diet: Advance to usual diet Activity on Discharge: As tolerated Stand Alone Forms: Patient Portal Discharge page Print Language: Turkmen Care Plan Goals: recovery from covid and acute respiratory failure Health Concerns: covid 19, acute on chronic hypoxic respiratory failure copd Plan of Treatment: take dexamethasone as recommended continue oxygen at 2 liters wear mask in public for at least 5 more days Assessment: see above
[2024-06-13 11:34] VITALS: BP 118/62; PULSE 79; RESP 14; TEMP 36.8; O2SAT 93
[2024-06-13] MEDS: Enoxaparin Sodium 40 MG/0.4 ML SYRINGE SUBCUT (11:59)
[2024-06-13 12:45] VITALS: PULSE 89; O2SAT 86; O2SAT 90; O2SAT 93
--- NOTE | 2024-06-13 13:01 | MHC.CM.PN ---
Patient has been medically cleared for dc to home today, with services. A referral was made to [facility], who has been informed of today's dc. Last IMM addressed yesterday.Patient's Daughter to transport.
--- NOTE | 2024-06-13 14:34 | W.MHC.F2F ---
Service Date Service Date: 06/13/24 Encounter Date of encounter: 06/13/24 Reasons for Services Signs and symptoms assessed: Shortness with little effort Reason for group home: CV/CP assess and/or care, medication management and teach disease management Homebound: Leaving the home is medically contraindicated at this time without the asist of a device and/or another person due th the listed conditions above and below. Reason homebound: shortness of breath with minimal effort and weakness related to hospital stay Homebound supporting statement: homebound due to shortness of breath from covid, post hospitalization weakness, need of oxygen all the time now and therefore needs he assistance of anothe person Certification: Based on the above findings, I certify that this patient is confined to the home and needs intermittent group home care, physical therapy and/or speech therapy, or continues to need occupational therapy. The patient is under my care, and I have initiated the establishment of the plan of care. The patient will be followed by a physician who will periodically review the plan of care. Time Spent With Patient Time: Total time managing care of this patient today ____ minutes.
== END 2024-06-13 16:04 | disposition home health service (06) | DRG 871 ==
LOC: HO.ED 10:51 → HO.EDOVER 12:19 → HO.IMC 12:54
PROVIDERS: Admitting Provider Student in an Organized Health Care Education/Training Program; Emergency Provider Emergency Medicine Emergency Medical Services; PCP Student in an Organized Health Care Education/Training Program; Visit Provider Internal Medicine
DX: A41.89 Other specified sepsis (principal); J96.21 Acute and chronic respiratory failure with hypoxia; U07.1 COVID-19; C34.11 Malignant neoplasm of upper lobe, right bronchus or lung; C79.31 Secondary malignant neoplasm of brain; J44.9 Chronic obstructive pulmonary disease, unspecified; E03.9 Hypothyroidism, unspecified; F17.210 Nicotine dependence, cigarettes, uncomplicated; Z99.81 Dependence on supplemental oxygen; Z71.6 Tobacco abuse counseling; Z79.890 Hormone replacement therapy; Z79.899 Other long term (current) drug therapy
CPT/HCPCS: 0241U; 36415; 71045; 80048; 80053; 80076; 81001; 83605; 85025; 85610; 87040; 87086; 94640; 97162; 99285; J0692; J1100; J1650; J7120

== ENCOUNTER → 2024-06-11 11:44 | Outpatient (BNV) | payer MEDICARE, MEDICAID, SELFPAY | PROVIDERS: Admitting Provider Student in an Organized Health Care Education/Training Program; Emergency Provider Emergency Medicine Emergency Medical Services; PCP Student in an Organized Health Care Education/Training Program; Visit Provider Internal Medicine | DX: U07.1 COVID-19 (principal); J96.21 Acute and chronic respiratory failure with hypoxia | CPT/HCPCS: 99222; 99232; 99239; G0180 ==

== ENCOUNTER 2024-06-30 10:42 | Outpatient (AMB) | payer MEDICARE, MEDICAID, SELFPAY ==
[2024-06-30 10:54] VITALS: BP 84/48; PULSE 76; O2SAT 91; BMI 20.7
--- NOTE | 2024-06-30 10:54 | MHC.OFFVIS ---
Vital Signs 06/30/24 10:54 Height 5 ft 5 in Weight 124 lb 8.979 oz BMI 20.7 BP 84/48 L Blood Pressure Location Lt brachial Position Sitting Pulse 76 Pulse Source Pulse Oximeter Pulse Oximetry (%) 91 L Oxygen Delivery Method Room Air Intake Visit Reasons: COPD Intake Note: pt is here for follow up and states she has a cough that cannot produce mucous, she coughs hard and episode was scary due to phelgm was stuck and than finally little production, they have questions on this and what to do. Information Assurance Engineer Required: No Allergies No Known Allergies [No Known Allergies*] Allergy (Verified 06/30/24 13:31) Medication List - Last Reconciled 06/30/24 by Janet Soliz MD albuterol sulfate 90 mcg/actuation (ProAir HFA) 2 puffs inhalation Q6H PRN alprazolam 0.25 mg PO BEDTIME PRN gemfibrozil 600 mg PO BID hydrochlorothiazide 25 mg PO BEDTIME levothyroxine 125 mcg PO DAILY pravastatin 20 mg PO BEDTIME Do you need a note to return to daycare/school/sports/work: No HPI HPI COPD: Details: THIS 83 YEARS OLD VERY PLEASANT FEMALE IS HERE FOR FOLLOW-UP AFTER HER RECENT HOSPITALIZATION. OVER THE LAST WEEK OF MAY 2024, SHE WAS ADMITTED TO [facility] WITH SYMPTOMS OF, SORE THROAT NASAL CONGESTION SHORTNESS OF BREATH BUT NO FEVER. SHE TESTED POSITIVE FOR COVID INFECTION. SHE WAS KEPT IN THE HOSPITAL AND TREATED FOR COVID, WITH IV DEXAMETHASONE AND SYMPTOMATICALLY, SHE WAS DISCHARGED HOME TO COMPLETE THE COURSE OF DEXAMETHASONE AFTER 3 DAYS IN THE HOSPITAL. SHE HAS BEEN DOING WELL EXCEPT FOR ONGOING COUGH AND MUCUS WHICH SHE CAN NOT CLEAR. SHE HAS BEEN USING OXYGEN OFF AND ON WHICH SHE DOES HAVE AT HOME. SHE HAD SOME GENERALIZED WEAKNESS WHICH IS IMPROVING SLOWLY. [facility] Medical History Anemia Hypoxemia Smoker COPD (chronic obstructive pulmonary disease) Diverticulosis Hypercholesteremia IBS (irritable bowel syndrome) HTN (hypertension) Surgical History Small cell carcinoma Hx of tonsillectomy Hx of appendectomy History of lumpectomy Lymphadenopathy, mediastinal Lung mass H/O colonoscopy Family History Sister Breast cancer Social History Household Members: None Housing: Apartment Do you presently have visiting nurse or other home services: No Alcohol intake: never Patient Tobacco Use Status: Current everyday Tobacco user Tobacco use type: Cigarette Cigarette Packs Per Day: 0.25 Cigarettes Per Day: 4 Years Smoked: 60 e-Cigarette/Vaping Use: Currently Using Second Hand Smoke Exposure: No service: No Current occupational status: retired Review of Systems Const All systems reviewed & are unremarkable except as noted in HPI and below Eyes Reports no additional complaints ENT Reports no additional complaints Card Denies chest pain, Denies irregular heart rhythm and Denies leg edema Resp Reports as per HPI GI Reports no additional complaints Reports no additional complaints Musc Reports no additional complaints Skin/Breast Reports system reviewed and no additional complaints, except as documented Neuro Reports no additional complaints Psych Reports no additional complaints Physical Exam Vital Signs: Last Vital Signs Pulse 76 06/30/24 10:54 BP 84/48 L 06/30/24 10:54 Pulse Ox 91 L 06/30/24 10:54 Oxygen Delivery Method Room Air 06/30/24 10:54 BMI result Body Mass Index 20.7 Const General: healthy appearing, comfortable, no acute distress, alert and awake Orientation/consciousness: patient oriented x3 HEENT Head: Yes normal to inspection General nose exam: No nasal polyps present and No nasal discharge present Face and sinus: Yes sinuses nontender Mouth: oropharynx normal Throat: Yes posterior oropharynx normal Eyes General: appearance normal, both eyes and all related structures Neck Neck: Yes normal visual inspection, Yes no lymphadenopathy, Yes trachea midline and Yes no JVD Thyroid: Thyroid normal Chest Chest palpation & inspection: normal inspection of the chest, normal palpation of entire chest wall and no tenderness Resp Other: Percussion note hyper-resonant. Breath sounds are slightly distant with prolonged expiratory phase. No wheezes or rhonchi . No creps. Cardio Palpation: normal PMI Rate: regular rate Rhythm: regular rhythm Heart sounds: no gallops and no murmurs Peripheral pulses: Peripheral pulses 2+ throughout GI Palpation (GI): Soft to palpation, nontender, No hepatosplenomegaly present and no masses Auscultation: normal bowel sounds Back/Spine/Pelvis Thoracic/Lumbar Spine: thoracic and lumbar spine normal to inspection Skin General skin exam: no rashes or lesions noted Neuro General: patient oriented x3 and no focal motor deficits Cranial nerves: Yes CN's II-XII intact bilaterally Extrem General: Yes normal to inspection, Yes no clubbing, cyanosis or edema and Yes no calf tenderness Psych Appearance: grossly normal and well kempt Speech and movement: Normal speech and movement present Results Reviewed Results Reviewed: REVIEWED THE HOSPITAL COURSE, EXPLAINED TO THE PATIENT. CHEST X-RAY DID NOT SHOW ANY NEW CHANGE EXCEPT FOR CHRONIC FIBROTIC CHANGES IN THE RIGHT UPPER LOBE. Assessment & Plan Assessment & Plan (1) COPD (chronic obstructive pulmonary disease): Comment: Chronic obstructive pulmonary disease, mild, and stable, slightly aggravated by her recent respiratory infection. Code(s): J44.9 - Chronic obstructive pulmonary disease, unspecified Category: Medical Plan: Continue using ProAir HFA 2 puffs Q 4-6 hours only p.r.n.. OK to use Mucinex 400 mg b.i.d. or just plain Robitussin 2 tsp t.i.d. for cough and mucus. (2) Smoker: Comment: Past history of smoking for 45 pack years. Quit in 2022 Currently smoking about 2-3 cigarettes a day. Code(s): F17.200 - Nicotine dependence, unspecified, uncomplicated Category: Social Hx Plan: I encouraged her to quit smoking completely. 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 Yosef Wolff ( oncologist ) regularly (4) Hypoxemia: Comment: SHE DOES HAVE EXERCISE INDUCED HYPOXEMIA, AND USES O2 2 L/MINUTE ONLY P.R.N., AFTER ANY BOUT OF PHYSICAL EXERTION. Code(s): R09.02 - Hypoxemia Category: Medical Plan: OK to continue using O2 2 L/minute p.r.n. with any exertion or if she feels more short of breath. Coding Level of Care Code Est Pt Level 3 (15404) Diagnoses COPD (chronic obstructive pulmonary disease) J44.9 Smoker F17.200 Small cell carcinoma C80.1 Hypoxemia R09.02
== END 2024-06-30 11:53 | disposition home or self-care (01) ==
PROVIDERS: PCP Student in an Organized Health Care Education/Training Program; Visit Provider Internal Medicine
DX: J44.9 Chronic obstructive pulmonary disease, unspecified (principal); F17.200 Nicotine dependence, unspecified, uncomplicated; C80.1 Malignant (primary) neoplasm, unspecified; R09.02 Hypoxemia
CPT/HCPCS: 99213

== ENCOUNTER → 2024-06-30 10:42 | Outpatient (BNVA) | payer MEDICARE, MEDICAID, SELFPAY | PROVIDERS: PCP Student in an Organized Health Care Education/Training Program; Visit Provider Internal Medicine | DX: J44.9 Chronic obstructive pulmonary disease, unspecified (principal); C80.1 Malignant (primary) neoplasm, unspecified; R09.02 Hypoxemia; F17.210 Nicotine dependence, cigarettes, uncomplicated | CPT/HCPCS: 99212 ==

== ENCOUNTER 2024-07-02 10:12 | Outpatient (REF) | payer MEDICARE, MEDICAID, SELFPAY ==
--- NOTE | ~2024-07-02 | CT_ITS ---
EXAMINATION: CT CHEST WITH CONTRAST CLINICAL INFORMATION: Small cell carcinoma. Follow-up. COMPARISON: CT chest dated February 05, 2024. TECHNIQUE: Multidetector volumetric CT imaging of the chest was obtained after the administration of 65 mL of Omnipaque 350 intravenous contrast without immediate adverse reactions. Axial MIP volume rendering provided. Sagittal and coronal reformatted images were obtained. This CT examination was performed using dose optimization techniques as appropriate, variously including the following: *Automated exposure control *Adjustment of mA and/or kV according to patient size (this includes techniques or standardized protocols for targeted exams where dose is matched to indication/reason for exam; i.e. extremities or head) *Use of iterative reconstruction technique. DLP: 85 mGy centimeters. FINDINGS: There is a spiculated 19 x 14 x 20 mm attenuation abnormality centered in the right upper lobe with associated linear attenuation contractions and volume loss extending from the superior right pulmonary hilum into the subtalar of the right upper hemithorax. There is a focal attenuation with minimal bronchiectasis in the medial anterior right upper lobe and right middle lobe likely post treatment changes. Centrilobular emphysematous changes. No pleural effusion. No pneumothorax. No honeycombing. Respiratory airways is grossly patent. No lymphadenopathy, mediastinum or perihilar. No axillary lymphadenopathy. Mixed plaques throughout the thoracic aorta its main branches. Calcified plaques in the coronary arteries. Calcified plaques in the mitral valve. No pericardial effusion. No aneurysm or dissection, thoracic aorta. The right-sided Port-A-Cath tip ends in the SVC. Multilevel spondylosis throughout the axial skeleton without acute fracture or gross listhesis. Osteopenia versus osteoporosis. No gross lytic or blastic lesions. Posterior marginal osteophyte formation at T6-7. The proximal abdominal aorta diameters 2.7 cm. There is a prominent gastric fundus/large diverticulum. CT/CT chest w IV con IMPRESSION: Stable to slightly decreased spiculated lesion right upper lobe. No lymphadenopathy. Fleischner guidelines were followed. Electronically signed by: Fito Willams MD 07/02/2024 12:08 PM [facility] [place]
[2024-07-02] MEDS: iohexoL 350 MG/ML 100 ML INFUS..BTL 85 ML IV (11:02)
== END 2024-07-02 10:13 | disposition home or self-care (01) ==
LOC: HO.CT 10:12
PROVIDERS: PCP Student in an Organized Health Care Education/Training Program; Visit Provider Internal Medicine Medical Oncology
DX: C34.90 Malignant neoplasm of unspecified part of unspecified bronchus or lung (principal)
CPT/HCPCS: 71260; Q9967

== ENCOUNTER → 2024-07-02 10:14 | Outpatient (BNV) | payer MEDICARE, MEDICAID, SELFPAY | PROVIDERS: PCP Student in an Organized Health Care Education/Training Program; Visit Provider Radiology Diagnostic Radiology | DX: C34.91 Malignant neoplasm of unspecified part of right bronchus or lung (principal) | CPT/HCPCS: 71260 ==

== ENCOUNTER → 2024-07-28 14:20 | Outpatient (BNV) | payer MEDICARE, MEDICAID, SELFPAY | PROVIDERS: Visit Provider Radiology Diagnostic Radiology | DX: J47.1 Bronchiectasis with (acute) exacerbation (principal) | CPT/HCPCS: 71046 ==

== ENCOUNTER 2024-08-03 10:37 | Inpatient (IN) | payer MEDICARE, OTHER, SELFPAY ==
[2024-08-03] VITALS (7 sets, daily range): BP systolic 96–108; BP diastolic 43–56; PULSE 71–92; RESP 18–25; TEMP 36.5–36.7; O2SAT 88–99; BMI 21.3
--- NOTE | ~2024-08-03 | XR_ITS ---
EXAMINATION: XR CHEST CLINICAL INFORMATION: SOB COMPARISON: Chest 07/28/2024 TECHNIQUE: Frontal view of the chest was obtained. FINDINGS: The lungs are well-expanded and clear acute processes. Heart size and pulmonary vascularity is normal. No gross bony abnormality seen. There is a right central venous port with its tip in proximal SVC. There is moderate dorsal spine spondylosis. XR/XR chest 1V IMPRESSION: No acute cardiopulmonary process seen. Electronically signed by: Trey Ng MD 08/03/2024 11:24 AM [facility]
--- NOTE | 2024-08-03 10:44 | ED_ITS ---
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 Wolff on 2 liters/minute home O2 p.r.n. who presents for evaluation of dyspnea and weakness. Patient states that she has been sick last 2 days. She states feeling weak and having difficulty breathing. Daughter (Lamar) at the bedside states that she is not very good at using her inhalers. Patient states that she use 2 puffs of albuterol this morning and a few puffs last night as well. She states no increased cough frequency or sputum production. She has no hemoptysis or chest pain. She states no asymmetrical leg swelling. Daughter states that there was seen at urgent care a week ago Saturday and prescribed prednisone and a Z-Bautista, which she states that she has completed. Daughter states that had oxygen home and states that she has noticed increased need for oxygen use. Daughter states the lowest oxygen they have seen at home was 85%, which resolves with supplemental oxygen. Patient states no vomiting, diarrhea or urinary symptoms. Related Data Home Medications ?Medication ?Instructions ?Recorded ?Confirmed hydrochlorothiazide 25 mg tablet 25 mg PO BEDTIME 12/13/21 06/23/24 pravastatin 20 mg tablet 20 mg PO BEDTIME 12/13/21 06/23/24 albuterol sulfate 90 mcg/actuation 2 puff inhalation Q6H PRN 02/06/22 06/23/24 aerosol inhaler (ProAir HFA) shortness of breath or wheeze gemfibrozil 600 mg tablet 600 mg PO BID 06/11/24 06/23/24 Previous Rx's ?Medication ?Instructions ?Recorded alprazolam 0.25 mg tablet 0.25 mg PO BEDTIME PRN Anxiety #30 05/12/24 tabs levothyroxine 125 mcg tablet 125 mcg PO DAILY #60 caps 06/22/24 cefuroxime axetil 500 mg tablet 500 mg PO Q12H #14 tabs 07/14/24 Allergies Allergy/AdvReac Type Severity Reaction Status Date / Time No Known Allergies Allergy Verified 08/03/24 10:48 [No Known Allergies*] Review of Systems 2 Review of Systems: ROS as per HPI [facility] Past Medical History Medical History Anemia Hypoxemia Smoker COPD (chronic obstructive pulmonary disease) Diverticulosis Hypercholesteremia IBS (irritable bowel syndrome) HTN (hypertension) Surgical History Small cell carcinoma Hx of tonsillectomy Hx of appendectomy History of lumpectomy Lymphadenopathy, mediastinal Lung mass H/O colonoscopy Family History Family History Sister Breast cancer Social History Social History Household Members: None Housing: Apartment Do you presently have visiting nurse or other home services: No Alcohol intake: never Patient Tobacco Use Status: Current everyday Tobacco user Tobacco use type: Cigarette Cigarette Packs Per Day: 0.25 Cigarettes Per Day: 4 Years Smoked: 60 Smoked in Last 30 Days: Yes e-Cigarette/Vaping Use: Currently Using Second Hand Smoke Exposure: No Use of substances other than those prescribed or required for medical reasons: No Advance Directives: Yes Advance Directives Information Provided: No Advance Directives on File: No Do you have a plan to hurt others: No Plan service: No Current occupational status: retired Physical Exam ED Vital Signs: Vital Signs - 24 hr 08/03/24 10:43 08/03/24 12:13 Temperature 97.7 F Pulse Rate 81 71 Respiratory Rate 22 H 18 Blood Pressure 108/56 L Pulse Oximetry 88 L Oxygen Delivery Method Room Air BMI result Body Mass Index 21.3 Gen: NAD, AOx3 HEENT: NCAT, EOMI, normal conjunctiva CV: RRR Pulm: Diffuse expiratory wheezes with a prolonged expiratory phase, +conversational dyspnea, no respiratory distress GI: Soft, NTND, no rebound, guarding or rigidity Neuro: Grossly non focal Skin: Warm, dry, right chest catheter c/d/i Course Course Course Narrative: RME performed by Mery Reinoso PA-C. Patient is an 84 year old assigned female at presenting to the emergency department with wheezing / shortness of breath / cough. Patient states that she has small cell carcinoma which she follows with Dr. Wolff for and is on chemo. Patient recently finished antibiotics and steroids and continues to have profound weakness and shortness of breath. Patient is on oxygen at home. Detailed physical exam and review of systems are deferred to the mice raiser. EKG, labs, imaging, and swabs ordered. projector operator aware of patient. Medications Administered Discontinued Medications Generic Name Dose Route Start Last Admin Trade Name Larry PRN Reason Stop Dose Admin Albuterol Sulfate 2.5 mg/ 0 mg 08/03/24 12:03 08/03/24 12:09 Albuterol/Ipratropium 3 ml INHALE 08/03/24 12:04 7.5 dose ONCE ONE Administration Methylprednisolone Sodium Succinate 125 mg 08/03/24 11:32 08/03/24 11:56 Methylprednisolone Sod Succ 125 Mg/2 Ml Vial IVPUSH 08/03/24 11:33 125 mg ONCE ONE Administration Medical Decision Making Medical Decision Making [facility] Narrative: 1122 - patient presents with dyspnea. Initial presenting vital signs at 10:43 a.m. with a blood pressure 108/56 mmHg, pulse 81, respiration rate 22, temp 97.7? and SpO2 88% on room air does not meet SIRS criteria. Differential diagnosis includes, but is not limited to viral URI, pneumonia, pneumothorax, COPD exacerbation. This is not sepsis. Patient is afebrile and hemodynamically stable and hypoxic to 88% on room air. Hypoxia resolved with supplemental oxygen via nasal cannula. Exam is notable for diffuse expiratory wheezes, prolonged expiratory phase and conversational dyspnea. Lung exam is consistent with bronchospasm for which patient is provided Solu-Medrol and nebulized bronchodilators. I reviewed the patient's labs, EKG and chest x-ray as below. Patient is provided doxycycline for COPD exacerbation. Case management and discussed with admitting hospitalist, Dr. Proctor, and given increased need of oxygen use at home, hypoxia to 85% at home, diffuse expiratory wheezes on exam as above patient will certainly benefit from admission for ongoing pulmonary hygiene. Admission/Observation Consideration of admission/observation: Escalation of care including admission/observation considered Consult Healthcare Provider Management of the patient was discussed with: Hospitalist Lab Data [facility] Lab Attestation statement: I reviewed the patient's lab results. I independently reviewed and interpreted the patient's labs including CBC and metabolic panel, troponin, which are benign and reassuring. There is stable chronic anemia with hemoglobin 11.6 (previous 10.0). There is no leukocytosis or leukopenia. There is no evidence of acute kidney injury or electrolyte derangement. Troponin reassuring at 4.0. Clinically suspicion for ACS is low given lack of chest pain and reassuring EKG without ischemic changes. There is no hyperbilirubinemia or transaminitis. Patient is negative for COVID-19, influenza and RSV. 08/03/24 11:52 08/03/24 11:52 Labs: Lab Results 08/03/24 08/03/24 Range/Units 11:50 11:52 WBC 9.6 (4.8-10.8) X10*3/uL RBC 3.46 L (4.20-5.50) X10*6/uL Hgb 11.6 L (12.0-16.0) g/dl Hct 37.6 (37.0-47.0) % MCV 108.7 H (80.0-98.0) fL MCH 33.5 H (27.0-33.0) pg MCHC 30.9 L (31.0-35.0) g/dl RDW 15.3 (11.0-16.0) % Plt Count 194 (160-400) X10*3/uL MPV 9.7 (9.4-12.3) fL Immature Gran % (Auto) 2.2 H (0.0-0.4) % Neut % (Auto) 82.8 H (45-73) % Lymph % (Auto) 6.8 L (20-40) % [place] % (Auto) 7.3 (2-11) % Eos % (Auto) 0.5 (0-4) % Baso % (Auto) 0.4 (0-2) % Lymph # (Auto) 0.7 L (1.2-4.9) X10*3/uL [place] # (Auto) 0.7 (0.1-1.2) X10*3/uL Eos # (Auto) 0.1 (0.0-0.4) X10*3/uL Baso # (Auto) 0.0 (0.0-0.2) X10*3/uL Abs Immat Gran (auto) 0.21 H (0.00-0.03) X10*3/uL Absolute Neuts (auto) 8.0 (2.0-8.3) x10*3/uL Absolute Nucleated RBC 0.000 (0.0-0.012) X10*3/uL Nucleated RBC % (auto) 0.0 (0.0-0.2) /100WBC Hold Blue Top SEE NOTE Sodium 143 (135-145) mmol/L Potassium 3.9 (3.3-5.1) mmol/L Chloride 107 (96-108) mmol/L Carbon Dioxide 29 (22-29) mmol/L Anion Gap 11 L (12-20) BUN 28 H (9-16) mg/dL Creatinine 0.94 (0.5-1.4) mg/dL Estim Creat Clear Calc 39.1 Estimated GFR 57 Random Glucose 95 (60-115) mg/dL Calcium 8.8 D (8.4-10.2) mg/dL Magnesium 2.0 (1.6-2.6) mg/dL Total Bilirubin 0.3 (0.0-1.0) mg/dL AST 19 (5-31) U/L ALT < 6 (0-31) U/L Alkaline Phosphatase 67 (39-117) U/L Troponin I High Sens 4.0 (<3.5-17.0) ng/L Total Protein 6.7 (6.5-8.0) g/dL Albumin 3.7 (3.5-5.0) g/dL Influenza Type A (PCR) NEGATIVE (Negative) Influenza Type B (PCR) NEGATIVE (Negative) RSV RNA Qual (PCR) NEGATIVE (Negative) SARS-CoV-2 RNA (RT-PCR) NEGATIVE (Negative) Independent Interpretation I performed an independent interpretation of an: EKG and Plain X-Ray Interpretation: I independently reviewed and interpreted the patient's chest x-ray, which demonstrates no pleural effusion or pneumothorax, ?haziness at the right lung apex (we will await radiology impression). Considered additional antibiotic coverage for community-acquired pneumonia, but given reassuring radiology impression of the chest x-ray without focal process will defer at this time. Suspect the patient's symptoms are likely secondary to bronchospasm and hypoxia. I independently reviewed and interpreted the patient's EKG, which demonstrates sinus rhythm at 75 beats per minute, MN 136, QRS 64, QTC 451, no STEMI Radiology Impression Discussion of test interpretation with radiology: I have reviewed the radiologist's reading. Radiologist Impression: XR/XR chest 1V IMPRESSION: No acute cardiopulmonary process seen. Electronically signed by: Trey Ng MD 08/03/2024 11:24 AM EST Dictated By: Trey Ng MD Signed By: <Electronically signed by Trey Ng MD in OV> 08/03/24 1124 Independent Historian Clinical information obtained from an independent historian. History obtained from or confirmed by: Other (Family contributes to the history) Discharge Plan Discharge Clinical Impression: Acute exacerbation of chronic obstructive pulmonary disease Patient Disposition: Admitted As Inpatient Prescriptions: No Action hydrochlorothiazide 25 mg Tablet 25 mg PO BEDTIME pravastatin 20 mg Tablet 20 mg PO BEDTIME gemfibrozil 600 mg tablet 600 mg PO BID alprazolam 0.25 mg Tablet 0.25 mg PO BEDTIME PRN (Reason: Anxiety) Qty: 30 0RF levothyroxine 125 mcg Tablet 125 mcg PO DAILY Qty: 60 2RF cefuroxime axetil 500 mg Tablet 500 mg PO Q12H Qty: 14 3RF albuterol sulfate [ProAir HFA] 90 mcg/actuation HFA aerosol inhaler 2 puff inhalation Q6H PRN (Reason: shortness of breath or wheeze) Print Language: Citizen [place]
--- NOTE | 2024-08-03 10:45 | ECG_ITS ---
Test Reason : SOB Blood Pressure : */* mmHG Vent. Rate : 75 BPM Atrial Rate : 75 BPM P-R Int : 136 ms QRS Dur : 64 ms QT Int : 404 ms P-R-T Axes : 70 59 74 degrees QTcB Int : 451 ms Normal sinus rhythm Normal ECG When compared with ECG of 07-Sep-2023 10:27, T wave amplitude has increased in Anterior leads Referred By: Mery Reinoso Electronically Signed By: SIS HULL MD
[2024-08-03] MEDS: methylPREDNISolone Sod Succ 125 MG/2 ML VIAL IVPUSH (11:56)
[2024-08-03 11:59] LABS: MANUAL DIFF FLAG NO
[2024-08-03 12:03] LABS: Basophils Percent Auto 0.4 % (0-2); Eosinophils Absolute Auto 0.1 X10*3/uL (0.0-0.4); Eosinophils Percent Auto 0.5 % (0-4); Hematocrit 37.6 % (37.0-47.0); Hemoglobin 11.6 g/dl (12.0-16.0); Imm Gran Abs Auto 0.21 X10*3/uL (0.00-0.03); Imm Gran Pct Auto 2.2 % (0.0-0.4); Lymphocytes Absolute Auto 0.7 X10*3/uL (1.2-4.9); Lymphocytes Percent Auto 6.8 % (20-40); Mean Corpuscular HGB Conc 30.9 g/dl (31.0-35.0); Mean Corpuscular Hemoglobin 33.5 pg (27.0-33.0); Mean Corpuscular Volume 108.7 fL (80.0-98.0); Mean Platelet Volume 9.7 fL (9.4-12.3); Monocytes Absolute Auto 0.7 X10*3/uL (0.1-1.2); Monocytes Percent Auto 7.3 % (2-11); Neutrophils Percent Auto 82.8 % (45-73); Platelet Count 194 X10*3/uL (160-400); Red Blood Count 3.46 X10*6/uL (4.20-5.50); Red Cell Distribution Width 15.3 % (11.0-16.0); White Blood Count 9.6 X10*3/uL (4.8-10.8)
[2024-08-03] MEDS: Albuterol Sulfate 2.5 MG, Albuterol/Iprat 2.5/0.5MG 3 ML 3 ML INHALE (12:09)
[2024-08-03 12:19] LABS: Alanine Aminotransferase < 6 U/L (0-31); Albumin Level 3.7 g/dL (3.5-5.0); Alkaline Phosphatase 67 U/L (39-117); Anion Gap 11 (12-20); Aspartate Amino Transferase 19 U/L (5-31); Bilirubin Total 0.3 mg/dL (0.0-1.0); Blood Urea Nitrogen 28 mg/dL (9-16); Calcium 8.8 mg/dL (8.4-10.2); Carbon Dioxide 29 mmol/L (22-29); Chloride 107 mmol/L (96-108); Creatinine Clr Calc Pharmacy 39.1; Estimated Glomerular Filt Rate 57; Glucose Random 95 mg/dL (60-115); Potassium 3.9 mmol/L (3.3-5.1); Sodium 143 mmol/L (135-145); Total Protein 6.7 g/dL (6.5-8.0)
--- OUTSIDE RECORDS SUMMARY | 2024-08-03 12:34 | XMS_ITS | Encounter Summary ---
Author Organization [employer] Address 75 [facility] 7t [place] [address] Care Team Providers Care Ramp Agent Name Role Phone Sarah Mathews MD Primary Care Provider [phone] Encounter Details Date Type Department Care Team (Late st Contact Info) Description 07/29/2024 Orders Only [facility] CHC MED & PEDS [address] [place], [place] [phone] Sarah Mathews MD [address] [place] [address] Social History Tobacco Use Types Packs/Day Years Used Date Smoking Tobacco: Every Day Cigarettes Passive Smoke Exposure: Current Smokeless Tobacco: Never Alcohol Use Standard Drinks/Week Comments Never 0 (1 standard drink = 0.6 oz pur e alcohol) Depression Answer Date Recorded Patient Health Questionnaire-9 Score 2 04/29/2024 Patient Health Questionnaire-9 Score 2 04/29/2024 Last PHQ-9: Questionnaire Data Not on file 1 06/29/2023 Housing Stability Answer Date Recorded What is your housing situation today? I have urmila banegas 04/10/[address] you li ve. Do you have problems with any of the following? None of the above 04/10/2023 Food Insecurity Answer Date Recorded Within the past 12 months, y ou worried that your food would run out before you got money to buy more: Never True 04/10/2023 Within the past 12 months,th e food you bought just didn't last and you didn't have enough money to get more: Never True Transportation Answer Date Recorded In the past 12 months, has l ack of transportation kept you from medical appts, meetings, work or from getting things needed for daily living? No 04/10/2023 Utilities Answer Date Recorded In the past 12 months, has t he electric, gas, oil or water company threatened to shut off services in your home? No 04/10/2023 Depression Answer Date Recorded Patient Health Questionnaire-2 Score 1 04/29/2024 Internet Access Answer Date Recorded Internet Access Q1 Yes 07/22/2024 Internet Access Q2 Not on file 07/22/2024 Comments No Sex and Gender Information Value Date Recorded Sex Assigned at Female 04/23/2022 10:18 AM EDT Legal Sex Female 10:18 AM EDT Gender Identity Female 04/23/2022 10:18 AM EDT Sexual Orientation Straight 04/23/2022 10 :18 AM EDT documented as of this encounter Plan of Treatment Upcoming Encounters Date Type Department Care Team ([facility] st Contact Info) Description 08/26/2024 10:45 AM EST Office Visit [facility] MED & PEDS [address] [place] [address] Sarah Mathews MD [address] [place] [address] documented as of this encounter Procedures Procedure Name Priority Date/Time Associated Diagnosis Comments XR CHEST 1 VIEW Routine 08/03/2024 11:00 AM EST documented in this encounter Results * XR Chest 1 View (08/03/2024 11:00 AM EST) Anatomical Region Laterality Modality Chest Radiographic Preeti ging 08/03/2024 11:0 0 AM EST Narrative 08/03/2024 11:26 AM EST ? [facility] ?[address] ?[place] [address] ?XRay Report ? Signed ? Patient: Emerita,Janine ?MR#: [id number] ?? 34 ? : 1940 ?Acct:[id number] ? Age/Sex: 84 / F ?ADM Date: 02/10/25 ? Loc: HO.ED ? Attending Dr: ? Ordering Physician: Mery Reinoso ?? Date of Service: 08/03/24 ?? Procedure(s): XR chest 1V ?? Accession Number(s): [id number] ? cc: Mery Reinoso; Sarah Mathews MD ? EXAMINATION: ?? XR CHEST ? CLINICAL INFORMATION: ?? SOB ? COMPARISON: ?? Chest 07/28/2024 ? TECHNIQUE: ?? Frontal view of the chest was obtained. ? FINDINGS: ?? The lungs are well-expanded and clear acute processes. Heart size and ?? pulmonary vascularity is normal. No gross bony abnormality seen. There ?? is a right central venous port with its tip in proximal SVC. There is ?? moderate dorsal spine spondylosis. ? XR/XR chest 1V ?? IMPRESSION: ?? No acute cardiopulmonary process seen. ? Electronically signed by: ??Trey Ng MD ??08/03/2024 11:24 AM EST RP ? Dictated By: ?Trey Ng MD ? Signed By: ?<Electronically signed by Trey Ng MD in OV> ?08/03/24 1124 ? DD/ 1100 ? TD/TT: 08/03/24 1110 ? Sound Printer: MSM ? Procedure Note Julianjonel, Image - 08/03/[address] [address] XRay Report Signed Patient: Vanesa Felder#: [id number] 33 : 2Acct:[id number] Age/Sex: 84 / FADM Date: 08/03/24 Loc: HO.ED Attending Dr: Ordering Physician: Mery Reinoso Date of Service: 08/03/24 Procedure(s): XR chest 1V Accession Number(s): [id number] cc: Mery Reinoso; Sarah Mathews MD EXAMINATION: XR CHEST CLINICAL INFORMATION: SOB COMPARISON: Chest 07/28/2024 TECHNIQUE: Frontal view of the chest was obtained. FINDINGS: The lungs are well-expanded and clear acute processes. Heart size and pulmonary vascularity is normal. No gross bony abnormality seen. There is a right central venous port with its tip in proximal SVC. There is moderate dorsal spine spondylosis. XR/XR chest 1V IMPRESSION: No acute cardiopulmonary process seen. Electronically signed by: Trey Ng MD 08/03/2024 11:24 AM EST Dictated By: Trey Ng MD Signed By: <Electronically signed by Trey Ng MD in OV> 08/03/24 1124 DD/ 1100 TD/TT: 08/03/24 1110 Sound Printer: SAMMY [facility] External Provider IMG XR PROCEDURES Final Result documented in this encounter Visit Diagnoses Not on filedocumented in this encounter Additional Health Concerns Assessment Noted Time PHQ-9 Depression Total Score: 2 04/29/20 24 10:19 AM EST documented as of this encounter Care Teams Ramp Agent Relationship Specialty Start Date End Date Sarah Mathews MD [address] [place] [address] PCP - General Family Medicine 04/15/12 Juan BENITES 06/15/24 documented as of this encounter
--- OUTSIDE RECORDS SUMMARY | 2024-08-03 12:34 | XMS_ITS | Encounter Summary ---
Author Organization [employer] Address 75 [facility] [address]t [place] [address] Care Team Providers Care Computer Hardware Technician Name Role Phone Sarah Mathews MD Primary Care Provider Reason for Visit * Reason Comments Pre-visit Planning SDOH negative, Tobac co screening negative. Encounter Details Date Type Department Care Team ([facility] Contact Info) Description 07/22/2024 Patient Outreach [facility] CHC MED & PEDS [address] [place], [place] [phone] Sarah Mathews MD [address] [place], [place] [phone] Pre-visit Planning (SDOH negative, Tobacco screening negative. ) Social History Tobacco Use Types Packs/Day Years [...] is your housing situation today? I have urmiladiandra banegas 04/10/[address] you [...] AM EDT documented as of this encounter Progress Notes * Dione Hernandez - 07/22/2024 9:29 AM EST CC Dione Reed placed successful outbound call to patient for pre-visit planning. Patient name and confirmed. Patient confirms appt date and time, and has transportation arrangements. Biggest concern for appointment at this time is no concerns. Appropriate screenings completed in anticipation ofappointment. documented in this encounter Plan of Treatment Upcoming Encounters Date Type Department Care Team ([facility] st Contact Info) Description 08/26/2024 10:45 AM EST Office Visit [facility] MED & PEDS [address] [place] [address] Sarah Mathews MD [address] [place] [address] documented as of this encounter Visit Diagnoses Not on filedocumented in this encounter Additional Health Concerns Assessment Noted Time PHQ-9 Depression Total Score: 2 04/29/20 24 10:19 AM EST documented as of this encounter Care Teams Computer Hardware Technician Relationship Specialty Start Date End Date Sarah Mathews MD [address] [place] [address] PCP - General Family Medicine 04/15/12 Juan BENITES 06/15/24 documented as of this encounter
--- OUTSIDE RECORDS SUMMARY | 2024-08-03 12:34 | XMS_ITS | Encounter Summary ---
Author Organization [employer] Address 75 [facility] 7t [place] [address] Care Team Providers Care Computer Hardware Engineer Name Role Phone Sarah Mathews MD Primary Care Provider [phone] Reason for Visit * Reason Onset Date Comments Nurse Triage 07/28/2024 Encounter Details Date Type Department Care Team ([facility] st Contact Info) Description 07/28/2024 Telephone C CHC MED & PEDS [address] [place], [place] [phone] Sarah Mathews MD [address] [place] [address] Nurse Triage Social History Tobacco Use Types Packs/Day Years [...] AM EDT documented as of this encounter Miscellaneous Notes * Telephone Encounter - Lilly Paulino RN - 07/28/2024 9:32 AM EST Called pt. Daughter Lamar [phone]. Pt. Daughter states that pt. Has been trying to cough up mucous but, having trouble. This am o2 has been 84% and her heart rate has been low. Pt recently had a UTI a few weeks ago. Unsure if pt. Has UTI. Pt. Is using o2 and taking Geritussin but, not able to get phlegm out of lungs. Current pulse 127/74- 77 [id number] Pt. On o2 2 liters and is helping pt. Atpresent. No fever. Pt in background stating that she is urinating within normal limits. Pt. Has nonproductive cough. No swelling in legs. Advised to have pt. Get assessed in [facility] walk in today even though pt. Does have appt tomorrow with PCP at 1045am. Protocol Used: Cough (Adult) Protocol-Based Disposition: Go to Office or Video Visit Now Video visit not offered Positive Triage Questions: * Mild difficulty breathing (e.g., minimal/no SOB at rest, SOB with walking, pulse < 100) and still present when not coughing *O2 sats low. * Known COPD or other severe lung disease (i.e., bronchiectasis, cystic fibrosis, lung surgery) andsymptoms getting worse (i.e., increased sputum purulence or amount, increased breathing difficulty)< br /> * All higher-acuity triage questions were negative Care Advice Discussed: * Reassurance and Education - Cough * Cough Medicines * Coughing Spells * Prevent Dehydration * Avoid Tobacco Smoke * Humidifier * Telephone Encounter - Melissa Kirby - 07/28/2024 9:16 AM EST Symptom: Low Blood Pressure - Caller Reports Outcome: Schedule a same-day appointment or talk to a nurse or provider today Reason: Caller denied all higher acuity questions The caller accepted this outcome. Daughter is also concern about pt oxygen levels. Pt Daughter is aware that pt has an appt tomorrow but would like to see if pt can be seen today. documented in this encounter Plan of Treatment Upcoming Encounters Date Type Department Care Team (Late st Contact Info) Description 08/26/2024 10:45 AM EST Office Visit [facility] MED & PEDS [address] [place] [address] Sarah Mathews MD [address] [place] [address] documented as of this encounter Visit Diagnoses Not on filedocumented in this encounter Additional Health Concerns Assessment Noted Time PHQ-9 Depression Total Score: 2 04/29/20 24 10:19 AM EST documented as of this encounter Care Teams Computer Hardware Engineer Relationship Specialty Start Date End Date Sarah Mathews MD [address] [place] [address] PCP - General Family Medicine 04/15/12 Juan BENITES 06/15/24 documented as of this encounter
--- OUTSIDE RECORDS SUMMARY | 2024-08-03 12:34 | XMS_ITS | Encounter Summary ---
Author Organization [employer] Address [address] [place] [address] 7t [place] [address] Care Team Providers Care Powder Nipper Name Role Phone Sarah Mathews MD Primary Care Provider [phone] Reason for Referral * Imaging (Routine) - Pending Review Specialty Diagnoses / Procedures Referred By Hernando baez Referred To Contact Cardiology Diagnoses Edema leg Procedures Transthoracic Echo (TTE) Complete Sarah Mathews MD [address] [place] [address] Phone: tel: fax: Referral ID Status Reason Start Date Expiration Date Visits Requested Visits Authorized [id number] Pending Review Perform Procedure 07/29/2024 07/29/2025 1 1 Encounter Details Date Type Department Care Team (Late st Contact Info) Description 07/29/2024 10:45 AM EST Office Visit [facility] CHC MED & PEDS [address] [place] [address] Sarah Mathews MD [address] [place], [place] [phone] Edema leg (Primary Dx); Primary hypertension; Chronic obstructive pulmonary disease, unspecified COPD type (CMS/HCC) Social History Tobacco Use Types Packs/Day Years [...] AM EDT documented as of this encounter Last Filed Vital Signs Vital Sign Reading Time Taken Comments Blood Pressure 112/63 07/29/2024 10:47 AM EST Pulse 78 07/29/2024 10:47 AM EST Temperature 35.6 ??C (96.1 ??F) 07/29/2024 10:[address] Respiratory Rate 18 07/29/2024 10:47 AM EST Oxygen Saturation - - Inhaled Oxygen Concentration - - Weight 56.2 kg (124 lb) 07/29/2024 10:47 AM EST Height 163 cm (5' 4.17 ) 07/29/2024 10:47 AM EST Body Mass Index 21.17 07/29/2024 10:47 AM EST documented in this encounter Progress Notes * Sarah Mathews MD - 07/29/2024 10:45 AM EST Subjective Patient ID: Janine Felder is a 84 y.o. female who presents for No chief complaint on file.. Edema Presents with recurrent edema. The current episode started more than 1 month ago. The onset of the episode was gradual. These episodes happen throughout the day. The problem presents itself constantly. The problem has been stable. The edema is present on the both side(s). Associated symptoms include cough. Pertinent negative symptoms include no chest pain and no palpitations. Past medical history comments: COPD. Treatments tried include elevating limb(s) and low salt diet. There has been mild improvement on treatment(s). Review of Systems Constitutional: Negative. Respiratory: Positive for cough. Negative for shortness of breath. Cardiovascular: Negative for chest pain and palpitations. Gastrointestinal: Negative. Genitourinary: Negative. Musculoskeletal: Negative for neck pain. Neurological: Negative for headaches. Objective Physical Exam Constitutional: Appearance: Normal appearance. Cardiovascular: Rate and Rhythm: Normal rate and regular rhythm. Pulses: Normal pulses. Heart sounds: Normal heart sounds. Pulmonary: Effort: Pulmonary effort is normal. Musculoskeletal: Right lower le+ Edema present. Left lower le+ Edema present. Neurological: Mental Status: She is alert. Assessment/Plan Diagnoses and all orders for this visit: Edema leg Comments: Started on Lasix 5mg daily Advised leg elevation ECHO ordered to rule out CHF Orders: - Transthoracic Echo (TTE) Complete; Future Primary hypertension Comments: Stable No changes in meds Chronic obstructive pulmonary disease, unspecified COPD type (CMS/HCC) Comments: Stable on Oxygen Cont Prednisone to finish Other orders - furosemide (Lasix) 20 MG tablet; Take 0.5 tablets (10 mg) by mouth Once per day. documented in this encounter Plan of Treatment Upcoming Encounters Date Type Department Care Team (Late st Contact Info) Description 08/26/2024 10:45 AM EST Office Visit [facility] MED & PEDS [address] [place] [address] Sarah Mathews MD [address] [place] [address] Scheduled Orders Name Type Priority Associated Diagnoses Order Schedule Transthoracic Echo (TTE) Complete Echocardiography Routine Edema leg Expected: 07/29/2024 (Approximate), Expires: 07/29/2026 documented as of this encounter Visit Diagnoses Diagnosis Edema leg- Primary Edema Primary hypertension Unspecified essential hypertension Chronic obstructive pulmonary disease, unspecified COPD type ([facility]/HCC) documented in this encounter Additional Health Concerns Assessment Noted Time PHQ-9 Depression Total Score: 2 04/29/20 24 10:19 AM EST documented as of this encounter Care Teams Powder Nipper Relationship Specialty Start Date End Date Sarah Mathews MD [address] [place] [address] PCP - General Family Medicine 04/15/12 Juan BENITES 06/15/24 documented as of this encounter
--- OUTSIDE RECORDS SUMMARY | 2024-08-03 12:34 | XMS_ITS | Encounter Summary ---
Author Organization [employer] Address 75 [facility] 7t [place] [address] Care Team Providers Care Manufacturing Recruiter Name Role Phone Sarah Mathews MD Primary Care Provider [phone] Encounter Details Date Type Department Care Team (Latest Contact Info) Description 07/29/2024 Travel Social History Tobacco Use Types Packs/Day Years [...] Upcoming Encounters Date Type Department Care Team ([facility] st Contact Info) Description 08/26/2024 10:45 AM EST Office Visit [facility] MED & PEDS [address] [place] [address] Sarah Mathews MD [address] [place] [address] documented as of this encounter Visit Diagnoses Not on filedocumented in this encounter Additional Health Concerns Assessment Noted Time PHQ-9 Depression Total Score: 2 04/29/20 24 10:19 AM EST documented as of this encounter Care Teams Manufacturing Recruiter Relationship Specialty Start Date End Date Sarah Mathews MD [address] [place] [address] PCP - General Family Medicine 04/15/12 Juan BENITES 06/15/24 documented as of this encounter
--- OUTSIDE RECORDS SUMMARY | 2024-08-03 12:34 | XMS_ITS | Encounter Summary ---
Author Organization [employer] Address 75 [facility] 7t [place] [address] Care Team Providers Care Solidworks Drafter Name Role Phone Sarah Mathews MD Primary Care Provider [phone] Encounter Details Date Type Department Care Team (Latest Contact Info) Description 07/08/2024 Travel Social History Tobacco Use Types Packs/Day [...] Recorded Patient Health Questionnaire-2 Score 1 04/29/2024 Comments No Sex and Gender Information Value [...] EST Office Visit [facility] MED & PEDS [address] [place] [address] Sarah Mathews MD [address] [place] [address] documented as of this encounter Visit Diagnoses Not on filedocumented in this encounter Additional Health Concerns Assessment Noted Time PHQ-9 Depression Total Score: 2 04/29/20 24 10:19 AM EST documented as of this encounter Care Teams Solidworks Drafter Relationship Specialty Start Date End Date Sarah Mathews MD [address] [place] [address] [place] [address] PCP - General Family Medicine 04/15/12 Juan BENITES 06/15/24 documented as of this encounter
--- OUTSIDE RECORDS SUMMARY | 2024-08-03 12:34 | XMS_ITS | Encounter Summary ---
Author Organization [employer] Address 75 [facility] 7t [place] [address] Care Team Providers Care Sour Bleaching Pleater Name Role Phone Sarah Mathews MD Primary Care Provider [phone] Reason for Visit * Reason Onset Date Comments FYI 07/20/2024 Encounter Details Date Type Department Care Team ([facility] st Contact Info) Description 07/20/2024 Telephone C [facility] MED [facility] PEDS [address] [place], [place] [phone] Sarah Mathews MD [address] [place] [address] FYI Social History Tobacco Use Types Packs/Day Years [...] encounter Miscellaneous Notes * Telephone Encounter - Melissa Kirby - 07/20/2024 9:38 AM EST Tc from [facility] calling to inform pt missed today visit next visit is 07/23/24. documented in this encounter Plan of Treatment Upcoming Encounters Date Type Department Care Team (Late st Contact Info) Description 08/26/2024 10:45 AM EST Office Visit [facility] CHC MED & PEDS [address] [place] [address] Sarah Mathews MD [address] [place] [address] documented as of this encounter Visit Diagnoses Not on filedocumented in this encounter Additional Health Concerns Assessment Noted Time PHQ-9 Depression Total Score: 2 04/29/20 24 10:19 AM EST documented as of this encounter Care Teams Sour Bleaching Pleater Relationship Specialty Start Date End Date Sarah Mathews MD [address] [place] [address] PCP - General Family Medicine 04/15/12 Juan [facility] 06/15/24 documented as of this encounter
--- OUTSIDE RECORDS SUMMARY | 2024-08-03 12:34 | XMS_ITS | Encounter Summary ---
Author Organization [employer] Address 75 [facility] 7t [place] [address] Care Team Providers Care Natural Gas Inspector Name Role Phone Sarah Mathews MD Primary Care Provider [phone] Reason for Visit * Reason Onset Date Comments FYI 06/16/2024 Encounter Details Date Type Department Care Team (Late st Contact Info) Description 06/16/2024 Telephone [facility] [address] [place] [address] Sarah Mathews MD [address] [place] [address] FYI Social History Tobacco Use Types Packs/Day Years Used Date Smoking Tobacco: Every Day Cigarettes Smokeless Tobacco: Never Alcohol Use Standard Drinks/Week [...] encounter Miscellaneous Notes * Telephone Encounter - Jose David Huff RN - 06/16/2024 11:53 AM EST Please see FYI below. * Telephone Encounter - Abel Rutledge - 06/16/2024 11:21 AM EST [facility] Stating that they admitted pt into Physical Therapy and will be seeing pt once a week. documented in this encounter Plan of Treatment Upcoming Encounters Date Type Department Care Team ([facility] st Contact Info) Description 08/26/2024 10:45 AM EST Office Visit [facility] CHC MED & PEDS [address] [place] [address] Sarah Mathews MD [address] [place] [address] documented as of this encounter Visit Diagnoses Not on filedocumented in this encounter Additional Health Concerns Assessment Noted Time PHQ-9 Depression Total Score: 2 04/29/20 24 10:19 AM EST documented as of this encounter Care Teams Natural Gas Inspector Relationship Specialty Start Date End Date Sarah Mathews MD [address] [place] [address] PCP - General Family Medicine 04/15/12 Juan BENITES 06/15/24 documented as of this encounter
--- OUTSIDE RECORDS SUMMARY | 2024-08-03 12:34 | XMS_ITS | Encounter Summary ---
Author Organization [employer] Address [address] 7t [place] [address] Care Team Providers Care Manufacturer'S Service Representative Name Role Phone Sarah Mathews MD Primary Care Provider [phone] Encounter Details Date Type Department Care Team (Late st Contact Info) Description 07/28/2024 4:00 PM EST Office Visit [facility] [address] [place] [address] Sue Hooper MD [address] [place] [address] COPD exacerbation (CMS/HCC) (Primary Dx); Cough, unspecified type Social History Tobacco Use Types Packs/Day Years [...] Sign Reading Time Taken Comments Blood Pressure 106/62 07/28/2024 1:06 PM EST Pulse 91 07/28/2024 1:06 PM EST Temperature 36.4 ??C (97.6 ??F) 07/28/2024 1:06 PM ES T Respiratory Rate - - Oxygen Saturation 99% 07/28/2024 1:06 PM EST room air Inhaled Oxygen Concentration - - Weight - - Height - - Body Mass Index - - documented in this encounter Progress Notes * Sue Hooper MD - 07/28/2024 4:00 PM EST Subjective Patient ID: Janine Felder is a 84 y.o. female who presents for productive cough and worsening oxygen level. 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 She was given supplemental oxygen awhile back and uses it as needed. Her daughters have noticed that Dorota's oxygen levels have been lower the past few days, in the 88-90 % range whereas previously there were mostly in the low 90s. They have also noticed Dorota coughing more but she is unable to bring anything up. Review of Systems Constitutional: Negative for chills and fever. HENT: Negative for congestion. Respiratory: Positive for cough and shortness of breath. Negative for wheezing. Cardiovascular: Positive for leg swelling. Negative for chest pain. Gastrointestinal: Negative for diarrhea, nausea and vomiting. Neurological: Negative for light-headedness and headaches. Objective BP 106/62 (BP Location: Left arm, Patient Position: Sitting, BP Cuff Size: Adult) Pulse 91 Temp97.6 ??F (36.4 ??C) SpO2 99% Comment: room air Physical Exam Constitutional: Appearance: She is not toxic-appearing. Comments: Thin, alert, interactive. HENT: Head: Normocephalic and atraumatic. Nose: Nose normal. Mouth/Throat: Mouth: Mucous membranes are moist. Eyes: General: No scleral icterus. Conjunctiva/sclera: Conjunctivae normal. Pupils: Pupils are equal, round, and reactive to light. Cardiovascular: Rate and Rhythm: Normal rate and regular rhythm. Pulses: Normal pulses. Heart sounds: Normal heart sounds. Pulmonary: Effort: Pulmonary effort is normal. Comments: Decreased breath sounds. Prolonged expiratory phase. No wheezing. Coarse cough at times. Musculoskeletal: Right lower leg: Edema (1+ankle) present. Left lower leg: Edema (1+ ankle) present. Skin: General: Skin is warm and dry. Neurological: Mental Status: She is alert. Mental status is at baseline. Psychiatric: Mood and Affect: Mood normal. Behavior: Behavior normal. Assessment/Plan Diagnoses and all orders for this visit: COPD exacerbation ([facility]): Negative POCT for COVID and flu today. Chest xray official reading today shows airspace opacity vs mass in RUL. She has a known malignancy in that part of her lung. I will treat her for a COPD exacerbation with 5 days of prednisone, Z-pack, and q4-6hr albuterol 2 puffs.Has follow up tomorrow with PCP. I have communicated with Dr. Mathews and sent her the official Xray report. - predniSONE (Deltasone) 20 MG tablet; Take 2 tablets (40 mg) by mouth Once per day for 5 days. - azithromycin (Zithromax Z-Bautista) 250 MG tablet; Take 2 tablets once on day 1, then 1 tablet once a day for 4 days. Cough, unspecified type - POCT Rapid Covid-19 BinaxNOW - POCT Rapid Influenza A CHÁVEZ ID NOW - POCT Rapid Influenza B CHÁVEZ ID NOW - XR Chest 2 Views; Future documented in this encounter Plan of Treatment Upcoming Encounters Date Type Department Care Team (Late st Contact Info) Description 08/26/2024 10:45 AM EST Office Visit [facility] [address] [facility] [place] [address] Sarah Mathews MD [address] [place] [address] documented as of this encounter Procedures Procedure Name Priority Date/Time Associated Diagnosis Comments XR CHEST 2 VIEWS STAT 07/28/2024 2:20 PM EST Cough, unspecified type POCT INFLUENZA B (ID NOW RAPID MOLECULAR) Routine 07/28/2024 1:36 PM EST Cough, unspecified type POCT INFLUENZA A (ID NOW RAPID MOLECULAR) Routine 07/28/2024 1:36 PM EST Cough, unspecified type POCT RAPID COVID ANTIGEN Routine 07/28/2024 1:21 PM EST Cough, unspecified type documented in this encounter Results * XR Chest 2 Views (07/28/2024 2:20 PM EST) Anatomical Region Laterality Modality Chest Radiographic Preeti ging 07/28/2024 2:20 PM EST Narrative 07/28/2024 3:08 PM EST ?[facility] ?[address] ?[place] [address] ?XRay Report ? Signed ? Patient: Emerita,Janine ?MR#: [id number] ?? 34 ? : 1940 ?Acct:[id number] ? Age/Sex: 84 / F ?ADM Date: 02/04/25 ? Loc: HO.HHCX ? Attending : Sue Hooper MD ? Ordering Physician: Sue Hooper MD ?? Date of Service: 07/28/24 ?? Procedure(s): XR chest 2V ?? Accession Number(s): [id number] ? cc: Sue Hooper MD ? EXAMINATION: ?? XR CHEST ? CLINICAL INFORMATION: ?? Productive cough with worsening hypoxemia ? COMPARISON: ?? June 11, 2024. ? TECHNIQUE: ?? 2 views of the chest were obtained. ? FINDINGS: ?? Hyperinflated lungs. Patchy opacity right lung apex. Focal ?? bronchiectasis, right lung apex. ?? Right-sided Port-A-Cath with tip ends in the SVC. ?? No pneumothorax. ?? No pleural effusion. ?? Heart silhouette is normal in size. ?? Multilevel thoracic spondylosis. Superiorly convex deformity of the ?? right clavicle likely old. ? XR/XR chest 2V ?? IMPRESSION: ?? Airspace disease versus malignancy, right lung apex. ? Electronically signed by: ??Fito Willams MD ??07/28/2024 03:05 PM ?? EST RP ? Dictated By: ?Fito Weiss MD ? Signed By: ?<Electronically signed by Fito Galan MD in OV> ? 07/28/24 1505 ? DD/ 1420 ? TD/TT: 07/28/24 1431 ? Freight Flow Sales Leader: ? Procedure Note Umm Giraldo - 07/28/[address] [address] XRay Report Signed Patient: Vanesa Felder#: [id number] 33 : 2Acct:[id number] Age/Sex: 84 / FADM Date: 07/28/24 Loc: HO.HHCX Attending Dr: Sue Hooper MD Ordering Physician: Sue Hooper MD Date of Service: 07/28/24 Procedure(s): XR chest 2V Accession Number(s): [id number] cc: Sue Hooper MD EXAMINATION: XR CHEST CLINICAL INFORMATION: Productive cough with worsening hypoxemia COMPARISON: June 11, 2024. TECHNIQUE: 2 views of the chest were obtained. FINDINGS: Hyperinflated lungs. Patchy opacity right lung apex. Focal bronchiectasis, right lung apex. Right-sided Port-A-Cath with tip ends in the SVC. No pneumothorax. No pleural effusion. Heart silhouette is normal in size. Multilevel thoracic spondylosis. Superiorly convex deformity of the right clavicle likely old. XR/XR chest 2V IMPRESSION: Airspace disease versus malignancy, right lung apex. Electronically signed by: Fito Willams MD 07/28/2024 03:05 PM EST Dictated By: Fito Weiss MD Signed By: <Electronically signed by Fito Galan MDin OV> 07/28/24 1505 DD/ 1420 TD/TT: 07/28/24 1431 Freight Flow Sales Leader: Sue Hooper MD IMG XR PROCEDURES Final Resul t * POCT Rapid Influenza B CHÁVEZ ID NOW (07/28/2024 1:36 PM EST) [facility] Influenza B Negative Negative, Indeterminate [facility] Swab 07/28/2024 1:36 PM EST Sue Hooper MD POINT OF CARE TEST ENTER/EDIT ORDERABLES Final Result Performing Organization Address [facility] Co de Phone Number [facility] [address] [place] [phone] * POCT Rapid Influenza A CHÁVEZ ID NOW (07/28/2024 1:36 PM EST) [facility] Influenza A Negative Negative, Indeterminate [facility] Swab 07/28/2024 1:36 PM EST Sue Hooper MD POINT OF CARE TEST ENTER/EDIT ORDERABLES Final Result Performing Organization Address [facility] Co de Phone Number [facility] [address] [place] [phone] * POCT Rapid Covid-19 BinaxNOW (07/28/2024 1:21 PM EST) [facility] Rapid COVID Ag Negative Swab 07/28/2024 1:21 PM EST Sue Hooper MD POINT OF CARE TEST ENTER/EDIT ORDERABLES Final Result documented in this encounter Visit Diagnoses Diagnosis COPD exacerbation ([facility])- Primary Obstructive chronic bronchitis with exacerbation Cough, unspecified type documented in this encounter Additional Health Concerns Assessment Noted Time PHQ-9 Depression Total Score: 2 04/29/20 24 10:19 AM EST documented as of this encounter Care Teams Manufacturer'S Service Representative Relationship Specialty Start Date End Date Sarah Mathews MD [address] [place] [phone] PCP - General Family Medicine 04/15/12 Juan BENITES 06/15/24 documented as of this encounter
--- OUTSIDE RECORDS SUMMARY | 2024-08-03 12:34 | XMS_ITS | Encounter Summary ---
Author Organization [employer] Address [address] [facility] [address] 7t [place] [address] Care Team Providers Care Senior Network Security Architect Name Role Phone Sarah Mathews MD Primary Care Provider [phone] Reason for Visit * Reason Onset Date Comments Medication Question 07/29/2024 Encounter Details Date Type Department Care Team ([facility] st Contact Info) Description 07/29/2024 Telephone [facility] [address] [place], [place] [phone] Sarah Mathews MD [address] [place] [address] Medication Question Social History Tobacco Use Types Packs/Day Years [...] encounter Miscellaneous Notes * Telephone Encounter - Song Peña - 07/31/2024 11:59 AM EST Tc from pt daughter regarding prior message. She states that she talked to the pharmacy and they stated that the medication that was being ordered doesn't come in a 10 mg. Pt would like to Have the 20 Mg back and will just cut them in Half to give Pt 10 mg. Contact pt at [phone] * Telephone Encounter - Abel Rutledge - 07/30/2024 4:08 PM EST Tc from Pt daughter requesting that 10 mg furosemide (Lasix) could be sent to [id number] AT [facility]. Pt daughter is also waiting for call to schedule and endogram for pt. Daughter Contact: [phone] * Telephone Encounter - Sarah Mathews MD - 07/29/2024 6:33 PM EST Please send verbal order of 10mg.[facility] does not let me send 10mg * Telephone Encounter - Melissa Kirby - 07/29/2024 12:15 PM EST Tc from pt daughter Lamar calling to inform went to pickling grader medication furosemide (Lasix) 20 MG tablet but was advised by a pharmacist to contact pcp office to switch script over to 10 mg instead of 20 mg so that its easier to spilt medication in half. Any further questions please contact phone # [phone] documented in this encounter Plan of Treatment Upcoming Encounters Date Type Department Care Team (Late st Contact Info) Description 08/26/2024 10:45 AM EST Office Visit [facility] [address] [place] [address] Sarah Mathews MD [address] [place] [address] documented as of this encounter Visit Diagnoses Not on filedocumented in this encounter Additional Health Concerns Assessment Noted Time PHQ-9 Depression Total Score: 2 04/29/20 24 10:19 AM EST documented as of this encounter Care Teams Senior Network Security Architect Relationship Specialty Start Date End Date Sarah Mathews MD [address] [place] [address] PCP - General Family Medicine 04/15/12 Juan BENITES 06/15/24 documented as of this encounter
--- OUTSIDE RECORDS SUMMARY | 2024-08-03 12:34 | XMS_ITS | Encounter Summary ---
Author Organization [employer] Address [address] [facility] 7t [place] [address] Care Team Providers Care Boom Boss Name Role Phone Sarah Mathews MD Primary Care Provider [phone] Reason for Visit * Reason Comments RN Visit- BP Check Encounter Details Date Type Department Care Team (Latest Contact Info) Description 07/08/2024 2:00 PM EST Clinical Support [facility] [address] [place] [address] Jose David Huff, RN [address] [place] [address] Idiopathic hypotension Social History Tobacco Use Types Packs/Day Years [...] Sign Reading Time Taken Comments Blood Pressure 98/58 07/08/2024 3:50 PM EST Pulse 71 07/08/2024 3:50 PM EST Temperature - - Respiratory Rate - - Oxygen Saturation 96% 07/08/2024 3:50 PM EST Inhaled Oxygen Concentration - - Weight - - Height - - Body Mass Index - - documented in this encounter Progress Notes * Jose David Huff, FERNANDA - 07/08/2024 2:00 PM EST S: Janine Felder is a 83 y.o. female who presents here today with daughter for BP check per covering provider Dr. Francois. At last visit with covering provider Dr. Francois on 07/01/24, pt's BP noted to be 94/44 and hydrochlorothiazide was discontinued. Pt denies any dizziness or lightheadedness. Daughter reported the following BP readings from home: 07-02-24: 110/67, P 66 07-03-24: 103/58, P 79 07-04-24: 115/70, P 73 07-05-24: 93/56, P 78 07-06-24: 102/58, 119/70, P 67 07-07-24: 106/53, P 70 07-08-24: 88/59, P 72 Pt also continues with cough despite using expectorant. Has not worsened but has not really improved. Pt has an oxygen tank at home which she uses as needed. She has been needing to use it more frequently. Also has inhalers but has not had to use. Pt is not in any respiratory distress, talking in full sentences. O: Pt calm alert and oriented x 3. Today BP Left Arm: 98/58 sitting, Pulse 71, O2 sat 96 % on RA. Pt denies any sx. Heart Sounds normal, mild wheezing heard upon exhalation. A: Hypotension. P: Advised to continue monitoring BP and to continue not taking hydrochlorothiazide. In regards to cough, advised to continue expectorant and maintain hydrated and to f/u next week if symptoms worsenor do not improve so that we can schedule a re-evaluation. In regards to her BP will send message to PCP to advise of plan also to see if anything else can help with the cough. Pt verbalized understanding and agrees to plan at this time. documented in this encounter Plan of Treatment Upcoming Encounters Date Type Department Care Team (Late st Contact Info) Description 08/26/2024 10:45 AM EST Office Visit [facility] [address] [place] [address] Sarah Mathews MD [address] [place] [address] documented as of this encounter Visit Diagnoses Diagnosis Idiopathic hypotension Unspecified hypotension documented in this encounter Additional Health Concerns Assessment Noted Time PHQ-9 Depression Total Score: 2 04/29/20 24 10:19 AM EST documented as of this encounter Care Teams Boom Boss Relationship Specialty Start Date End Date Sarah Mathews MD [address] [place] [phone] PCP - General Family Medicine 04/15/12 Juan BENITES 06/15/24 documented as of this encounter
--- OUTSIDE RECORDS SUMMARY | 2024-08-03 12:35 | XMS_ITS | Encounter Summary ---
Author Organization [employer] Address [address] [facility] 7t [place] [address] Care Team Providers Care Minister Helper Name Role Phone Sarah Mathews MD Primary Care Provider [phone] Reason for Visit * Reason Onset Date Comments Nurse Triage 07/01/2024 Encounter Details Date Type Department Care Team (Late st Contact Info) Description 07/01/2024 Telephone [facility] [address] [place] [address] Sarah Mathews MD [address] [place] [address] Nurse Triage Social History Tobacco Use Types [...] encounter Miscellaneous Notes * Telephone Encounter - Berenice Marques RN - 07/01/2024 11:27 AM EST Triage call Pt daughter Lamar Guillen is asked by Pt to speak for Pt. Pt was admitted to [facility] 06/11/24for dx of copd exacerbation and covid. Pt was discharged 06/13/24. Pt has been having low blood pressure even while in the hospital. Note, Pt has been undergoing chemotherapy prior to ED visit. Pt was seen by criminal justice faculty yesterday and had a BP of 84/48. Today [facility]NA visit showed BP of 90/60 and last week running in the 102/60 range. Pt is taking hydroCHLOROthiazide 25mg daily every morning. Daughter reports no verbalized symtoms noted but some SOB at rest is noted but, not unusual. Daughter reports adequate liquid intake but, encouraged to increase liquids to 64oz daily ( 6-8 glasses or bottles of water). Daughter agrees with this advice and disposition. [facility]K apt in [facility] today at 240pm. Insurance is verified as active prior to booking. Pt does not have a hospital discharge follow up scheduled at this time. Protocol Used: Blood Pressure - Low (Adult) Protocol-Based Disposition: See in Office or Video Visit Today Positive Triage Question: * Systolic BP 90-110 while taking blood pressure medications * All higher-acuity triage questions were negative Care Advice Discussed: * Reassurance and Education - Low (Diastolic) Blood Pressure * Fall Prevention * Reasons To Call Back - Lightheadedness, weakness, or dizziness occurs - Systolic BP under 90 - You feel sick - You become worse * Telephone Encounter - Abel Rutledge - 07/01/2024 10:31 AM EST Symptom: Low Blood Pressure - Caller Reports Outcome: Talk to a nurse or provider within 15 minutes Reason: Sudden decrease within the past 24 hours The caller accepted this outcome. Blood Pressure: Yesterday: 84/48 Today: 90/60 documented in this encounter Plan of Treatment Upcoming Encounters Date Type Department Care Team (Late st Contact Info) Description 08/26/2024 10:45 AM EST Office Visit [facility] [address] [place] [address] Sarah Mathews MD [address] [place] [address] documented as of this encounter Visit Diagnoses Not on filedocumented in this encounter Additional Health Concerns Assessment Noted Time PHQ-9 Depression Total Score: 2 04/29/20 24 10:19 AM EST documented as of this encounter Care Teams Minister Helper Relationship Specialty Start Date End Date Sarah Mathews MD [address] [place] [address] PCP - General Family Medicine 04/15/12 Juan BENITES 06/15/24 documented as of this encounter
--- OUTSIDE RECORDS SUMMARY | 2024-08-03 12:35 | XMS_ITS | Encounter Summary ---
Author Organization [employer] Address [address] [place] [address] 7t [place] [address] Care Team Providers Care Stress Test Technician Name Role Phone Sarah Mathews MD Primary Care Provider [phone] Reason for Referral * Consultation (Routine) - Pending Review Specialty Diagnoses / Procedures Referred By Hernando baez Referred To Contact Pharmacy Diagnoses Urinary tract infection without hematuria, site unspecified Tash Walker PharmD [address] [place] [address] Phone: tel: fax: Referral ID Status Reason Start Date Expiration Date Visits Requested Visits Authorized [id number] Pending Review Continuity of Care 09/12/2023 09/11/2024 1 1 Encounter Details Date Type Department Care Team (Late st Contact Info) Description 09/12/2023 Orders Only [facility] [address] [place], [place] [phone] Tash Walker, PharmD [address] [place], [place] [phone] Urinary tract infection without hematuria, site unspecified (Primary Dx) Social History Tobacco Use Types Packs/Day Years Used Date Smoking Tobacco: Every Day Cigarettes Smokeless Tobacco: Never Alcohol Use Standard Drinks/Week Comments Never 0 (1 standard drink = 0.6 oz pur e alcohol) Housing Stability Answer Date Recorded What is [...] off services in your home? No 04/10/2023 Comments No Sex and Gender Information Value [...] Description 08/26/2024 10:45 AM EST Office Visit [facility] [address] [place] [address] Sarah Mathews MD [address] [place] [address] Scheduled Referrals Name Type Priority Associated Diagnoses Orde r Schedule Referral to Pharmacy [facility] Outpatient Referral Routine Urinary tract infection without hematuria, site unspecified Ordered: 09/12/2023 documented as of this encounter Visit Diagnoses Diagnosis Urinary tract infection without hematuria, site unspecified- Primary documented in this encounter Care Teams Stress Test Technician Relationship Specialty Start Date End Date Sarah Mathews MD [address] [place] [phone] PCP - General Family Medicine 04/15/12 Juan BENITES 06/15/24 documented as of this encounter
--- OUTSIDE RECORDS SUMMARY | 2024-08-03 12:35 | XMS_ITS | Encounter Summary ---
Author Organization [employer] Address [address] [facility] 7t [place] [address] Care Team Providers Care Statistics Professor Name Role Phone Sarah Mathews MD Primary Care Provider [phone] Reason for Visit * Reason Comments Med Refill Encounter Details Date Type Department Care Team ([facility] st Contact Info) Description 02/09/2024 Refill [facility] [address] [place] [address] Sarah Mathews MD [address] [place], [place] [phone] Primary hypertension Social History Tobacco Use Types Packs/Day Years [...] Description 08/26/2024 10:45 AM EST Office Visit [facility] [address] [place] [address] Sarah Mathews MD [address] [place] [address] documented as of this encounter Visit Diagnoses Diagnosis Primary hypertension Unspecified essential hypertension documented in this encounter Care Teams Statistics Professor Relationship Specialty Start Date End Date Sarah Mathews MD [address] [place] [address] [place] [address] PCP - General Family Medicine 04/15/12 Juan BENITES 06/15/24 documented as of this encounter
--- OUTSIDE RECORDS SUMMARY | 2024-08-03 12:35 | XMS_ITS | Clinical Summary ---
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 05/11/20 23 Active ondansetron ODT (Zofran-ODT) 8 MG disintegrating tablet DISSOLVE 1 TABLET ON THE TONGUE EVERY 8 HOURS 04/09/20 23 Active Multiple Vitamins-Minerals (CENTRUM SILVER 50+WOMEN PO) Purchases OTC- Take 1 tablet by mouth once daily Active pravastatin (Pravachol) 20 MG tablet TAKE 1 TABLET BY MOUTH EVERY NIGHT AT BEDTIME 90 tablet 1 01/23/20 24 Active levothyroxine (Synthroid, Levoxyl) 125 MCG tablet Take by mouth before breakfast. Active gemfibrozil (Lopid) 600 MG tabletIndications :Primary hypertension Take 1 tablet (600 mg) by mouth 2 times daily. 90 tablet 3 04/29/20 24 025 Active cetirizine (ZyrTEC) 10 MG tabletIndications :Seasonal Allergic Rhinitis Take 1 tablet (10 mg) by mouth at bedtime. 30 tablet 2 04/29/20 24 Active albuterol (ProAir HFA) 108 (90 Base) MCG/ACT inhaler Inhale 2 puffs every 4 (four) hours if needed for wheezing. 18 g 3 04/29/20 24 Active Blood Pressure kit 1 Units Once per day. 1 kit 07/01/19 25 Active azithromycin (Zithromax Z-Bautista) 250 MG tabletIndications :COPD exacerbation (CMS/HCC) Take 2 tablets once on day 1, then 1 tablet once a day for 4 days. 6 tablet 07/28/19 25 Active furosemide (Lasix) 20 MG tablet Take 0.5 tablets (10 mg) by mouth Once per day. 15 tablet 11 08/02/19 25 026 Active guaiFENesin (Robitussin) 100 MG/5ML liquid Take 10 mL (200 mg) by mouth if needed in the morning, at noon, and at bedtime for cough for up to 10 days. 120 mL 07/01/19 25 025 predniSONE (Deltasone) 20 MG tabletIndications :COPD exacerbation (CMS/HCC) Take 2 tablets (40 mg) by mouth Once per day for 5 days. 10 tablet 07/28/19 25 025 furosemide (Lasix) 20 MG tablet Take 0.5 tablets (10 mg) by mouth Once per day. 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 At this moment will discontinue hydrochlorothiazide and f.up in 1 week with nursing. Cough 07/01/2024 Assessment & Plan (07/02/2024 9:10 AM EST): Normal lung exam. Hemodynamically stable. At this moment will send expectorant. 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 04/23/2023 Atherosclerotic cardiovascular disease Renal cyst, left 04/23/2023 Irritable bowel syndrome 04/23/2023 Infrarenal abdominal aortic aneurysm (AAA) witho ut rupture 04/23/2023 History of radiation therapy 04/23/2023 History of breast cancer 04/23/2023 Diverticulosis of colon 04/23/2023 Gastric diverticulum without complication 2022 COPD (chronic obstructive pulmonary disease) Acquired trigger finger 10/16/2012 Hypercholesterolemia 10/16/2012 Tobacco dependence syndrome 10/16/2012 Encounters Date Type Department Care Team Description 08/03/2024 Orders Only GENERIC EXTERNAL DATA DEPARTMENT Provider, Generic External Data 07/29/2024 10:45 AM EST Office Visit [facility] [address] [place] [address] Sarah Mathews MD Edema leg (Primary Dx); Primary hypertension; Chronic obstructive pulmonary disease, unspecified COPD type (CMS/HCC) 07/29/2024 Orders Only [facility] [address] [place] [address] Sarah Mathews MD 07/29/2024 Telephone [facility] [address] [place] [address] Sarah Mathews MD Medication Question 07/29/2024 Travel 07/28/2024 4:00 PM EST Office Visit [facility] [address] [place] [address] Sue Hooper MD COPD exacerbation (CMS/HCC) (Primary Dx); Cough, unspecified type 07/28/2024 Telephone [facility] [address] [place] [address] Sarah Mathews MD Nurse Triage 07/22/2024 Patient Outreach [facility] [address] [place] [address] Sarah Mathews MD Pre-visit Planning (SDOH negative, Tobacco screening negative. ) 07/20/2024 Telephone [facility] [address] [place] [address] Sarah Mathews MD FYI 07/08/2024 2:00 PM EST Clinical Support [facility] [address] [place] [address] Jose David Huff, FERNANDA Idiopathic hypotension 07/08/2024 Travel 07/01/2024 2:40 PM EST Office Visit [facility] [address] [place] [address] Sandra Francois MD Idiopathic hypotension (Primary Dx); Cough, unspecified type 07/01/2024 Travel 07/01/2024 Telephone [facility] [address] [place], [place] [phone] Sarah Mathews MD Nurse Triage 06/16/2024 Telephone [facility] [address] [place], [place] [phone] Sarah Mathews MD FYI 06/11/2024 Orders Only GENERIC EXTERNAL DATA DEPARTMENT Provider, Generic External Data 05/19/2024 Orders Only [facility] External Provider, [facility] from Last 3 Months Immunizations Name Administration Dates Next Due Influenza Quadrivalent Adjuvanted 06/06/2022, Influenza injectable quadriv alent IIV4 with preservative 03/08/2015 Influenza, High Dose Seasona l, Preservative Free 04/29/2024,02/01/2017,02/04/2016 Influenza, IIV3, injectable 04/03/2012 Influenza, Split (incl. frederick f[place] surface antigen) 03/06/2013 Influenza, trivalent, adjuvanted 04/27/2018 Pfizer Covid-19 Vaccine 12+ 03/23/2021,,08/06/2020 Pneumococcal Conjugate PCV 20 09/02/2023 Pneumococcal Polysaccharide PPSV23 02/04/2016 TD (adult), 2 Lf tetanus tox oid, preservative free, adsorbed 02/21/2007 Tdap 12/21/2022 Zoster, live 06/26/2015 Social History Tobacco Use Types Packs/Day Years Used Date Smoking Tobacco: Every Day Cigarettes Passive Smoke Exposure: Current Smokeless Tobacco: Never Tobacco Cessation:Ready to Q uit: Not Asked; Counseling Given: Not Answered Alcohol Use Standard Drinks/Week Comments Never 0 [...] Orientation Straight 04/23/2022 10 :18 AM EDT Last Filed Vital Signs Vital Sign Reading Time Taken Comments Blood Pressure 112/63 07/29/2024 10:47 AM EST Pulse 78 07/29/2024 10:47 AM EST Temperature 35.6 ??C (96.1 ??F) 07/29/2024 10:[address] Respiratory Rate 18 07/29/2024 10:47 AM EST Oxygen Saturation 99% 07/28/2024 1:06 PM EST room air Inhaled Oxygen Concentration - - Weight 56.2 kg (124 lb) 07/29/2024 10:47 AM EST Height 163 cm (5' 4.17 ) 07/29/2024 10:47 AM EST Body Mass Index 21.17 07/29/2024 10:47 AM EST Plan of Treatment Upcoming Encounters Date Type Department Care Team (Late st Contact Info) Description 08/26/2024 10:45 AM EST Office Visit [facility] [address] [place] [address] Sarah Mathews MD [address] [place] [address] Health Maintenance Due Date Last Done Comments Hepatitis A Vaccines (1 of 2 - Risk 2-dose series) 1959 Zoster Vaccines (2 of 3) 08/21/2015 06/26/2015 RSV Patients and Patients Aged 60 years or older (1 - 1-dose 75+ series) 2016 COVID-19 Vaccine ( season) 2024 06/06/2022, 03/23/2021, 08/27/2020, Additional history exists Depression Screening 04/29/2025 04/29/2024, 04/29/20 24 SDOH Screening 07/22/2025 07/22/2024 Tobacco Screening 07/28/2025 07/28/2024 Alcohol/Substance Use Screening 07/29/2025 07/29/2024 Lipid Panel 05/09/2029 05/09/2024, 04/0 01/2024, 12/21/2022, Additional history exists DTaP/Tdap/Td Vaccines (2 - Td or Tdap) 12/21/2032 12/21/2022, 02/21/2007 Pneumococcal Vaccine: 50+ Years Completed 09/02/2023, 02/04/2016 Influenza Vaccine Completed 04/29/2024, , 04/23/2021, Additional history exists HIB Vaccines Aged Out No longer eligi ble based on patient's age to complete this topic HPV Vaccines Aged Out No longer eligi ble based on patient's age to complete this topic Hepatitis B Vaccines Aged Out No long er eligible based on patient's age to complete this topic IPV Vaccines Aged Out No longer eligi ble based on patient's age to complete this topic Meningococcal Vaccine Aged Out No nehemias christi eligible based on patient's age to complete this topic RSV under 20 months Aged Out No longe r eligible based on patient's age to complete this topic Rotavirus Vaccines Aged Out No longer eligible based on patient's age to complete this topic Procedures Procedure Name Priority Date/Time Associated Diagnosis Comments HIGH SENSITIVITY TROPONIN I Routine 08/03/2024 11:52 AM EST MAGNESIUM Routine 08/03/2024 11:52 AM EST COMPREHENSIVE METABOLIC PANEL Routine 08/03/2024 11:52 AM EST CBC WITH AUTO DIFFERENTIAL Routine 08/03/2024 11:52 AM EST HOLD LT BLUE - POSSIBLE COAG Routine 08/03/2024 11:50 AM EST XR CHEST 1 VIEW Routine 08/03/2024 11:00 AM EST XR CHEST 2 VIEWS STAT 07/28/2024 2:20 PM EST Cough, unspecified type POCT INFLUENZA B (ID NOW RAPID MOLECULAR) Routine 07/28/2024 1:36 PM EST Cough, unspecified type POCT INFLUENZA A (ID NOW RAPID MOLECULAR) Routine 07/28/2024 1:36 PM EST Cough, unspecified type POCT RAPID COVID ANTIGEN Routine 07/28/2024 1:21 PM EST Cough, unspecified type CT CHEST W CONTRAST Routine 07/02/2024 1 0:35 AM EST URINALYSIS, COMPLETE, WITH REFLEX TO CULTURE Routine 06/11/2024 9:24 AM EST BASIC METABOLIC PANEL Routine 06/11/2024 8:44 AM EST HEPATIC FUNCTION PANEL Routine 06/11/2024 8:44 AM EST LACTIC ACID Routine 06/11/2024 8:44 AM EST PROTHROMBIN TIME-INR Routine 06/11/2024 8:44 AM EST CBC WITH AUTO DIFFERENTIAL Routine 06/11/2024 8:44 AM EST SARS COV2/INFLUENZA A/B AND RSV RNA QL NAAT Routine 06/11/2024 8:44 AM EST XR CHEST 1 VIEW Routine 06/11/2024 8:22 AM EST MR BRAIN W AND WO CONTRAST Routine 05/19/2024 9:03 AM EST HEPATIC FUNCTION PANEL Routine 05/09/2024 8:09 AM EST Primary hypertension Hypothyroidism, unspecified type LIPID PANEL, STANDARD Routine 05/09/2024 8:09 AM EST Primary hypertension Hypothyroidism, unspecified type BASIC METABOLIC PANEL Routine 05/09/2024 8:09 AM EST Primary hypertension from Last 3 Months Results * High Sensitivity Troponin I (08/03/2024 11:52 AM EST) [facility] TROPONIN I HIGH SENSITIVITY 4.0 <3.5 - 17.0 ng/L [facility] Comment:The Chávez high sens itivity Troponin-I results should beused in conjunction with other diagnostic information suchas ECG, clinical observations and information, and patientsymptoms to aid in the diagnosis of CA. 08/03/2024 11:5 2 AM EST 08/03/2024 11:58 AM EST us Generic External Data Provider LAB BLOOD ORDERAB LES Final Result [facility] [address] [place] [phone] * (ABNORMAL) CBC auto differential (08/03/2024 11:52 AM EST) Only the most recent of2 resultswithin the time period is included. [facility] White Blood Count 9.6 4.8 - 10.8 X10*3/uL [facility] Red Blood Count 3.46(L) 4.20 - 5.50 X10*6/uL [facility] Hemoglobin 11.6(L) 12.0 - 16.0 g/dl [facility] Hematocrit 37.6 37.0 - 47.0 % [facility] Mean Corpuscular Volume 108.7(H) 80.0 - 98.0 fL [facility] Mean Corpuscular Hemoglobin 33.5(H) 27.0 - 33.0 pg [facility] Mean Corpuscular HGB Conc 30.9(L) 31.0 - 35.0 g/dl [facility] Red Cell Distribution Width 15.3 11.0 - 16.0 % [facility] Platelet Count 194 160 - 400 X10*3/uL [facility] Mean Platelet Volume 9.7 9.4 - 12.3 fL [facility] Neutrophils Percent Auto 82.8(H) 45 - 73 % [facility] Imm Gran Pct Auto 2.2(H) 0.0 - 0.4 % [facility] Lymphocytes Percent Auto 6.8(L) 20 - 40 % [facility] Monocytes Percent Auto 7.3 2 - 11 % [facility] Eosinophils Percent Auto 0.5 0 - 4 % [facility] Basophils Percent Auto 0.4 0 - 2 % [facility] NRBC Pct Auto 0.0 0.0 - 0.2 /100WBC [facility] Neutrophils Absolute Auto 8.0 2.0 - 8.3 x10*3/uL [facility] Imm Gran Abs Auto 0.21(H) 0.00 - 0.03 X10*3/uL [facility] Lymphocytes Absolute Auto 0.7(L) 1.2 - 4.9 X10*3/uL [facility] Monocytes Absolute Auto 0.7 0.1 - 1.2 X10*3/uL [facility] Eosinophils Absolute Auto 0.1 0.0 - 0.4 X10*3/uL [facility] Basophils Absolute Auto 0.0 0.0 - 0.2 X10*3/uL [facility] NRBC Abs Auto 0.000 0.0 - 0.012 X10*3/uL [facility] 08/03/2024 11:5 2 AM EST 08/03/2024 11:58 AM EST us Generic External Data Provider LAB BLOOD ORDERAB LES Final Result Performing Organization Address City/[facility] Co de Phone Number [facility] [address] [place] [phone] * Magnesium (08/03/2024 11:52 AM EST) Magnesium 2.0 1.6 - 2.6 mg/dL [facility] 08/03/2024 11:5 2 AM EST 08/03/2024 11:58 AM EST [employer] External Data Provider LAB BLOOD ORDERAB LES Final Result Performing Organization Address [facility] Phone Number [facility] [address] [place] [phone] * (ABNORMAL) Comprehensive Metabolic Panel (08/03/2024 11:52 AM EST) Sodium 143 135 - 145 mmol/L [facility] Potassium 3.9 3.3 - 5.1 mmol/L [facility] Chloride 107 96 - 108 mmol/L [facility] Carbon Dioxide 29 22 - 29 mmol/L [facility] Anion Gap 11(L) 12 - 20 [facility] Urea Nitrogen (BUN) 28(H) 9 - 16 mg/dL [facility] Creatinine, Serum 0.94 0.5 - 1.4 mg/dL [facility] Creatinine Clr Calc Pharmacy 39.1 [facility] Comment:Provided height and weight: 162.56 cm,56.245 kg.eGFR (calculated from the MDRD study equation) and eCrCl(calculated from the Cockcroft-Gault equation) are based ondifferent parameters and may not yield comparable results.If eCrCl result is absurd, please check patient'sheight/weight. Estimated Glomerular Filt Rate 57 [facility] Comment:Chronic Kidney Disea se: Estimated GFR < 60 mL/min/[id number] Kidney Disease: Estimated GFR < 15 mL/min/1.73m2 Glucose 95 60 - 115 mg/dL [facility] Calcium 8.8 8.4 - 10.2 mg/dL [facility] Bilirubin, Total 0.3 0.0 - 1.0 mg/dL [facility] Aspartate Amino Transferase 19 5 - 31 U/L [facility] Alanine Aminotransferase <6 0 - 31 U/L [facility] Total Protein 6.7 6.5 - 8.0 g/dL [facility] Albumin Level 3.7 3.5 - 5.0 g/dL [facility] Alkaline Phosphatase 67 39 - 117 U/L [facility] 08/03/2024 11:5 2 AM EST 08/03/2024 11:58 AM EST us Generic External Data Provider LAB BLOOD ORDERAB LES Final Result Performing Organization Address City/[facility]/ZIP Co de Phone Number [facility] [address] [place] [phone] * HOLD LT BLUE - POSSIBLE COAG (08/03/2024 11:50 AM EST) Hold Lt Blue - Possible Coag SEE NOTE [facility] Comment:Specimen will be hel d untested for 4 hours. Call Hematologyif testing is desired. 08/03/2024 11:5 0 AM EST 08/03/2024 12:02 PM EST us Generic External Data Provider LAB BLOOD ORDERAB LES Final Result Performing Organization Address [facility]/ZIP Co de Phone Number [facility] [address] [place] [phone] * XR Chest 1 View (08/03/2024 11:00 AM EST) Only the most recent of2 resultswithin the time period is included. Anatomical Region Laterality Modality Chest Radiographic Preeti ging 08/03/2024 11:0 0 AM EST Narrative 08/03/2024 11:26 AM EST ? [facility] ?[address] ?[place] [address] ?XRay Report ? Signed ? Patient: Emerita,Janine ?MR#: [id number] ?? 34 ? : 1940 ?Acct:[id number] ? Age/Sex: 84 / F ?ADM Date: 08/03/24 ? Loc: HO.ED ? Attending Dr: ? Ordering Physician: Mery Reinoso ?? Date of Service: 08/03/24 ?? Procedure(s): XR chest 1V ?? Accession Number(s): [id number] ? cc: Mery Reinoso; Sarah Mtahews MD ? EXAMINATION: ?? XR CHEST ? [...] DD/ 1100 ? TD/TT: 08/03/24 1110 ? Cut Off Man: MSM ? Procedure Note Enzo, Image - 08/03/[address] [address] XRay Report Signed Patient: Vanesa Felder#: [id number] [birth year] : 2Acct:[id number] Age/Sex: 84 / FADM Date: 08/03/24 Loc: HO.ED Attending Dr: Ordering Physician: Mery Reinoso Date of Service: 08/03/24 Procedure(s): XR chest 1V Accession Number(s): [id number] cc: Mery Reinoso; Sarah Mathews MD EXAMINATION: [...] Trey Ng MD 08/03/2024 11:24 AM EST RP Dictated By: Trey Ng MD Signed By: <Electronically signed by Trey Ng MD in OV> 08/03/24 1124 DD/ 1100 TD/TT: 08/03/24 1110 Cut Off Man: SAMMY [facility] External Provider IMG XR PROCEDURES Final Result * XR Chest 2 Views (07/28/2024 2:20 PM EST) Anatomical Region Laterality Modality Chest Radiographic Preeti ging 07/28/2024 2:20 PM EST Narrative 07/28/2024 3:08 PM EST ?[facility] ?[address] ?[place] [address] ?XRay Report ? Signed ? Patient: Emerita,Janine ?MR#: [id number] ?? 34 ? : 1940 ?Acct:[id number] ? Age/Sex: 84 / F ?ADM Date: 07/28/25 ? Loc: HO.HHCX ? Attending Dr: Sue Hooper MD ? Ordering Physician: Sue Hooper MD ?? Date of Service: 07/28/24 ?? Procedure(s): XR chest 2V ?? Accession Number(s): [id number] ? cc: Sue Hooper MD ? EXAMINATION: [...] DD/ 1420 ? TD/TT: 07/28/24 1431 ? Cut Off Man: ? Procedure Note Umm Giraldo - 07/28/[address] [address] XRay Report Signed Patient: Vanesa Felder#: [id number] [birth year] : 1940cct:[id number] Age/Sex: 84 / FADM Date: 07/28/24 Loc: HO.HHCX Attending Dr: Sue Hooper MD Ordering Physician: Sue Hooper MD Date of Service: 07/28/24 Procedure(s): XR chest 2V Accession Number(s): [id number] cc: Sue Hooepr MD EXAMINATION: XR CHEST CLINICAL INFORMATION: Productive [...] Fito Willams MD 07/28/2024 03:05 PM EST RP Dictated By: Fito Weiss MD Signed By: <Electronically signed by Fito Galan MDin OV> 07/28/24 1505 DD/ 1420 TD/TT: 07/28/24 1431 Cut Off Man: Sue Hooper MD IMG XR PROCEDURES Final Resul t * POCT Rapid Influenza B CHÁVEZ ID NOW (07/28/2024 1:36 PM EST) [facility] Influenza B Negative Negative, Indeterminate [facility] Swab 07/28/2024 1:36 PM EST Sue Hooper MD POINT OF CARE TEST ENTER/EDIT ORDERABLES Final Result Performing Organization Address [facility] Co de Phone Number [facility] [address] [place] [phone] * POCT Rapid Influenza A CHÁVEZ ID NOW (07/28/2024 1:36 PM EST) [facility] Influenza A Negative Negative, Indeterminate [facility] Swab 07/28/2024 1:36 PM EST Sue Hooper MD POINT OF CARE TEST ENTER/EDIT ORDERABLES Final Result Performing Organization Address [facility] de Phone Number [facility] [address] [place] [phone] * POCT Rapid Covid-19 BinaxNOW (07/28/2024 1:21 PM EST) [facility] Rapid COVID Ag Negative Swab 07/28/2024 1:21 PM EST Sue Hooper MD POINT OF CARE TEST ENTER/EDIT ORDERABLES Final Result * CT Chest w/ Contrast (07/02/2024 10:35 AM EST) Anatomical Region Laterality Modality Body, Chest Computed Tomogra phy 07/02/2024 10:3 5 AM EST Narrative 07/02/2024 12:11 PM EST ? [facility] ?[address] ?[place] [address] ? CT Scan Report ? Signed ? Patient: Emerita,Janine ?MR#: [id number] ?? 34 ? : 1940 ?Acct:[id number] ? Age/Sex: 83 / F ?ADM Date: 07/02/24 ? Loc: HO.CT ? Attending Dr: Yosef Wolff MD ? Ordering Physician: Yosef Wolff MD ?? Date of Service: 07/02/24 ?? Procedure(s): CT chest w IV con ?? Accession Number(s): [id number] ? cc: Yosef Wolff MD; Sarah Mathews MD ? Report Number: ?? [id number]: Total DLP = ?? 85.00 mGy-cm ?? EXAMINATION: ?? CT CHEST WITH CONTRAST ? CLINICAL INFORMATION: ?? Small cell carcinoma. Follow-up. ? COMPARISON: ?? CT chest dated February 05, 2024. ? TECHNIQUE: ?? Multidetector volumetric CT imaging of the chest was obtained after the ?? administration of 65 mL of Omnipaque 350 intravenous contrast without ?? immediate adverse reactions. Axial MIP volume rendering provided. ?? Sagittal and coronal reformatted images were obtained. ? This CT examination was performed using dose optimization techniques as ?? appropriate, variously including the following: ?? *Automated exposure control ?? *Adjustment of mA and/or kV according to patient size (this includes ?? techniques or standardized protocols for targeted exams where dose is ?? matched to indication/reason for exam; i.e. extremities or head) ?? *Use of iterative reconstruction technique. ?? DLP: 85 mGy centimeters. ? FINDINGS: ?? There is a spiculated 19 x 14 x 20 mm attenuation abnormality centered ?? in the right upper lobe with associated linear attenuation contractions ?? and volume loss extending from the superior right pulmonary hilum into ?? the subtalar of the right upper hemithorax. ?? There is a focal attenuation with minimal bronchiectasis in the medial ?? anterior right upper lobe and right middle lobe likely post treatment ?? changes. ?? Centrilobular emphysematous changes. ?? No pleural effusion. ?? No pneumothorax. ?? No honeycombing. ?? Respiratory airways is grossly patent. ?? No lymphadenopathy, mediastinum or perihilar. ?? No axillary lymphadenopathy. ?? Mixed plaques throughout the thoracic aorta its main branches. ?? Calcified plaques in the coronary arteries. ?? Calcified plaques in the mitral valve. ?? No pericardial effusion. ?? No aneurysm or dissection, thoracic aorta. ?? The right-sided Port-A-Cath tip ends in the SVC. ?? Multilevel spondylosis throughout the axial skeleton without acute ?? fracture or gross listhesis. Osteopenia versus osteoporosis. No gross ?? lytic or blastic lesions. ?? Posterior marginal osteophyte formation at T6-7. ?? The proximal abdominal aorta diameters 2.7 cm. ?? There is a prominent gastric fundus/large diverticulum. ? CT/CT chest w IV con ?? IMPRESSION: ?? Stable to slightly decreased spiculated lesion right upper lobe. ?? No lymphadenopathy. ? Fleischner guidelines were followed. ? Electronically signed by: ??Fito Willams MD ??07/02/2024 12:08 PM ?? EST ? Dictated By: ?Fito Weiss MD ? Signed By: ?<Electronically signed by Fito Galan MD in OV> ? 07/02/24 1208 ? DD/ 1035 ? TD/TT: 07/02/24 1103 ? Cut Off Man: ? Procedure Note Enzo, Image - 07/02/[address] [address] [address] Scan Report Signed Patient: Vanesa Felder#: [id number] 34 : 2Acct:[id number] Age/Sex: 83 / FADM Date: 07/02/24 Loc: HO.CT Attending Dr: Yosef Wolff MD Ordering Physician: Yosef Wolff MD Date of Service: 07/02/24 Procedure(s): CT chest w IV con Accession Number(s): [id number] cc: Yosef Wolff MD; Sarah Mathews MD Report Number: [id number]: Total DLP = 85.00 mGy-cm EXAMINATION: CT CHEST WITH CONTRAST CLINICAL INFORMATION: Small cell carcinoma. Follow-up. COMPARISON: CT chest dated February 05, 2024. TECHNIQUE: Multidetector volumetric CT imaging of the chest was obtained after the administration of 65 mL of Omnipaque 350 intravenous contrast without immediate adverse reactions. Axial MIP volume rendering provided. Sagittal and coronal reformatted images were obtained. This CT examination was performed using dose optimization techniques as appropriate, variously including the following: *Automated exposure control *Adjustment of mA and/or kV according to patient size (this includes techniques or standardized protocols for targeted exams where dose is matched to indication/reason for exam; i.e. extremities or head) *Use of iterative reconstruction technique. DLP: 85 mGy centimeters. FINDINGS: There is a spiculated 19 x 14 x 20 mm attenuation abnormality centered in the right upper lobe with associated linear attenuation contractions and volume loss extending from the superior right pulmonary hilum into the subtalar of the right upper hemithorax. There is a focal attenuation with minimal bronchiectasis in the medial anterior right upper lobe and right middle lobe likely post treatment changes. Centrilobular emphysematous changes. No pleural effusion. No pneumothorax. No honeycombing. Respiratory airways is grossly patent. No lymphadenopathy, mediastinum or perihilar. No axillary lymphadenopathy. Mixed plaques throughout the thoracic aorta its main branches. Calcified plaques in the coronary arteries. Calcified plaques in the mitral valve. No pericardial effusion. No aneurysm or dissection, thoracic aorta. The right-sided Port-A-Cath tip ends in the SVC. Multilevel spondylosis throughout the axial skeleton without acute fracture or gross listhesis. Osteopenia versus osteoporosis. No gross lytic or blastic lesions. Posterior marginal osteophyte formation at T6-7. The proximal abdominal aorta diameters 2.7 cm. There is a prominent gastric fundus/large diverticulum. CT/CT chest w IV con IMPRESSION: Stable to slightly decreased spiculated lesion right upper lobe. No lymphadenopathy. Fleischner guidelines were followed. Electronically signed by: Fito Willams MD 07/02/2024 12:08 PM EST RP Dictated By: Fito Weiss MD Signed By: <Electronically signed by Fito Galan MDin OV> 07/02/24 1208 DD/ 1035 TD/TT: 07/02/24 1103 Cut Off Man: [facility] External Provider IMG CT PROCEDURES Final Result * (ABNORMAL) Urinalysis, Complete, with Reflex to Culture (06/11/2024 9:24 AM EST) Color Urine Yellow [facility] Appearance Urine Cloudy [facility] PH 5.5 5.0 - 9.0 [facility] Glucose Urine UA Negative Negative mg/dL [facility] Urine Blood Negative Negative [facility] Specific [place] - Urine 1.015 1.005 - 1.025 [facility] Urine Protein Negative Neg-Trace mg/dL [facility] Urine Ketones Negative Negative mg/dL [facility] Nitrite Urine Negative Negative [facility] Leukocyte Esterase Urine Small (1+)(A) Negative [facility] RBC Urine 0-2 0 - 2 /HPF [facility] Urine WBC 0-5 0 - 5 /HPF [facility] Urine Squamous Epithelial Cell 0-2 0 - 2 /HPF [facility] Urine Bacteria None Seen None Seen [facility] Hyaline Casts, Urine 0-2 0 - 2 /LPF [facility] 06/11/2024 9:24 AM EST 06/11/2024 9:28 AM EST Narrative [facility] - 06/11/2024 9:53 AM EST Urine, Clean Catch Generic External Data Provider LAB URINE ORDERAB LES Final Result [facility] [address] [place] [phone] * (ABNORMAL) SARS-CoV-2 RNA, Influenza A/B, and RSV RNA, Ql NAAT (06/11/2024 8:44 AM EST) Influenza A PCR NEGATIVE Negative [facility] Influenza B PCR NEGATIVE Negative [facility] Resp Syncy Virus RNA Qual PCR NEGATIVE Negative [facility] SARS COV2 PCR POSITIVE(A) Negative [facility] Comment:All test results mus t be correlated with clinical findings.Negative results do not preclude SARS-CoV2, influenza Avirus, influenza B virus and/or RSV infectionand should not be used as the sole basis for treatment orother patient management decisions. Negative results must becombined with clinical observations, patient history, andepidemiological information.This test has not been evaluated for monitoring treatment ofinfection.This test has been authorized by the FDA under an EmergencyUse Authorization (EUA) for use by authorized laboratories.Testing performed on the [employer] GeneXpert utilizingreal-time RT-PCR.All SARS CoV2 and positive influenza A/B results arereported to [facility]. 06/11/2024 8:44 AM EST 06/11/2024 8:55 AM EST Generic External Data Provider LAB MICROBIOLOGY - GENERAL ORDERABLES Final Result [facility] [address] [place] [phone] * Prothrombin Time-INR (06/11/2024 8:44 AM EST) Prothrombin Time 12.1 10.9 - 12.4 SEC [facility] INTERNATIONAL NORM RATIO 1.0 0.9 - 1.1 [facility] Comment:INTERNATIONAL NORMAL IZED RATIO (INR) REFERENCE RANGES Reference RangeFor patients not on anticoagulant therapy: 0.9 - 1.1INR ranges for oral anticoagulanttherapy:For prevention and treatment of venous thrombosis and pulmonary embolism: 2.0 - 3.0For acute myocardial infarction with aspirin therapy: 2.0 - 3.0For acute myocardial infarction without aspirin therapy: 3.0 - 4.0For patients with mechanical prosthetic heart valves: 2.5 - 3.5 06/11/2024 8:44 AM EST 06/11/2024 8:51 AM EST us Generic External Data Provider LAB BLOOD ORDERAB LES Final Result Performing Organization Address [facility] Co de Phone Number [facility] [address] [place] [phone] * Lactic Acid (06/11/2024 8:44 AM EST) Lactic Acid 0.9 0.5 - 2.0 mmol/L [facility] 06/11/2024 8:44 AM EST 06/11/2024 8:51 AM EST us Generic External Data Provider LAB BLOOD ORDERAB LES Final Result Performing Organization Address [facility] Phone Number [facility] [address] [place] [phone] * Hepatic Function Panel (06/11/2024 8:44 AM EST) Only the most recent of2 resultswithin the time period is included. Bilirubin, Total 0.4 0.0 - 1.0 mg/dL [facility] Bilirubin, Direct 0.3 0.0 - 0.5 mg/dL [facility] Aspartate Amino Transferase 23 5 - 31 U/L [facility] Alanine Aminotransferase <6 0 - 31 U/L [facility] Total Protein 6.6 6.5 - 8.0 g/dL [facility] Albumin Level 3.6 3.5 - 5.0 g/dL [facility] Alkaline Phosphatase 61 39 - 117 U/L [facility] 06/11/2024 8:44 AM EST 06/11/2024 8:51 AM EST us Generic External Data Provider LAB BLOOD ORDERAB LES Final Result Performing Organization Address City/[facility] Co de Phone Number [facility] [address] [place] [phone] * (ABNORMAL) Basic Metabolic Panel (06/11/2024 8:44 AM EST) Only the most recent of2 resultswithin the time period is included. Sodium 139 135 - 145 mmol/L [facility] Potassium 3.4 3.3 - 5.1 mmol/L [facility] Chloride 102 96 - 108 mmol/L [facility] Carbon Dioxide 28 22 - 29 mmol/L [facility] Anion Gap 12 12 - 20 [facility] Urea Nitrogen (BUN) 33(H) 9 - 16 mg/dL [facility] Creatinine, Serum 1.59(H) 0.5 - 1.4 mg/dL [facility] Creatinine Clr Calc Pharmacy 36.6 [facility] Comment:Provided height and weight: 165.1 cm,127 kg.eGFR (calculated from the MDRD study equation) and eCrCl(calculated from the Cockcroft-Gault equation) are based ondifferent parameters and may not yield comparable results.If eCrCl result is absurd, please check patient'sheight/weight. Estimated Glomerular Filt Rate 31 [facility] Comment:Chronic Kidney Disea se: Estimated GFR < 60 mL/min/1.23s4Oeifzn Kidney Disease: Estimated GFR < 15 mL/min/1.73m2 Glucose 97 60 - 115 mg/dL [facility] Calcium 8.9 8.4 - 10.2 mg/dL [facility] 06/11/2024 8:44 AM EST 06/11/2024 8:51 AM EST us Generic External Data Provider LAB BLOOD ORDERAB LES Final Result [facility] [address] [place] [phone] * Mr Brain w/ and w/o Contrast (05/19/2024 9:03 AM EST) Anatomical Region Laterality Modality Brain Magnetic Resonan ce 05/19/2024 9:03 AM EST Narrative 05/22/2024 10:30 AM EST ? [facility] ?[address] ?[place] [address] ? Magnetic Resonance Report ? Signed ? Patient: Emerita,Janine ?MR#: [id number] ?? 34 ? : 1940 ?Acct:[id number] ? Age/Sex: 83 / F ?ADM Date: 05/19/24 ? Loc: HO.MRI ? Attending Dr: Yosef Wolff MD ? Ordering Physician: Yosef Wolff MD ?? Date of Service: 05/19/24 ?? Procedure(s): MR head/brain wo/w con ?? Accession Number(s): [id number] ? cc: Yosef Wolff MD; Sarah Mathews MD ? EXAMINATION: ?? MR BRAIN WITHOUT AND WITH CONTRAST ? CLINICAL INFORMATION: ?? 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 ? COMPARISON: ?? MR brain 12/30/2023, 09/27/2023,04/04/2023. ? TECHNIQUE: ?? Multiplanar, multisequence MRI of the brain was obtained before and ?? after the intravenous administration of 5.5 mL Gadavist. Examination ?? performed on a 1.5 Rukhsana Siemens unit. Standard sequences utilized. ? FINDINGS: ?? There is no diffusion restriction. ?? There is no intracranial hemorrhage, acute infarction, mass effect, or ?? edema. ?? Ventricles, sulci, and cisterns are normal in size and configuration ?? for patient age. No shift of midline. ?? No abnormal hemosiderin deposition is identified. ? There are a few scattered punctate and minimally confluent foci of ?? white matter T2 hyperintensity in the periventricular, subcortical, and ?? hemispheric deep white matter, nonspecific. ?? 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 ?? A few subtle foci of encephalomalacia also present in the left middle ?? frontal gyrus, left parietal operculum, left posterior temporal lobe, ?? left periatrial white matter superiorly, in the region of previously ?? seen treated metastases. ?? After the administration of contrast, no pathologic intra or ?? extra-axial contrast enhancement is present to suggest new metastases ?? or recurrence. ?? Solitary 3 mm focus of enhancement left medial cerebellum (series 19, ?? image 32), has no correlating signal abnormality on any other sequence ?? and is likely vascular. ?? 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 This is unchanged. ?? Enhancing DVA again noted in the right cerebellar hemisphere superiorly. ? Midline structures appear normally formed. The pituitary gland appears ?? normal. ?? Posterior fossa structures appear normal. Cerebellar tonsils are ?? appropriately located. ?? Major flow voids are preserved within the skull base. ? The globes and orbital contents demonstrate bilateral lens ?? replacements. No additional abnormalities. ?? Paranasal sinuses are clear bilaterally. ?? The mastoids and tympanic cavities are normally aerated. ? Extracranial soft tissues demonstrate no abnormalities. ?? No suspicious bone marrow changes are evident. ? MR/MR head/brain wo/w con ?? IMPRESSION: ?? 1. No acute intracranial hemorrhage, acute infarction, mass effect, or ?? edema. No definite evidence of new or recurrent metastatic disease. ?? 2. A vague 3 mm focus of enhancement of the left medial cerebellum as ?? detailed, has no correlating signal abnormality on any other sequence ?? and is likely vascular in etiology. Attention on follow-up recommended. ?? 3. Stable mild encephalomalacia in the right periventricular raanda ?? radiata, and subtle foci of gliosis in the regions of previously ?? identified metastatic disease. ?? 4. Stable 2 mm focus of nodular enhancement in the distal right IAC, ?? consistent with a tiny acoustic schwannoma. This is unchanged ?? 5. Ancillary findings as discussed. ? Electronically signed by: ??Fab Julio MD ??05/22/2024 10:27 AM EST RP ? Dictated By: ?Fab Julio MD ? Signed By: ?<Electronically signed by Fab Julio MD in OV> ?05/22/24 1027 ? DD/ 0903 ? TD/TT: 05/19/24 1005 ? Cut Off Man: ? 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 COMPARISON: MR brain 12/30/2023, 09/27/2023,04/04/2023. TECHNIQUE: Multiplanar, multisequence MRI of the brain was obtained before and after the intravenous administration of 5.5 mL Gadavist. Examination performed on a 1.5 Rukhsana Siemens unit. Standard sequences utilized. FINDINGS: There is no diffusion restriction. There is no intracranial hemorrhage, acute infarction, mass effect, or edema. Ventricles, sulci, and cisterns are normal in size and configuration for patient age. No shift of midline. No abnormal hemosiderin deposition is identified. There are a few scattered punctate and minimally confluent foci of white matter T2 hyperintensity in the periventricular, subcortical, and hemispheric deep white matter, nonspecific. 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 A few subtle foci of encephalomalacia also present in the left middle frontal gyrus, left parietal operculum, left posterior temporal lobe, left periatrial white matter superiorly, in the region of previously seen treated metastases. After the administration of contrast, no pathologic intra or extra-axial contrast enhancement is present to suggest new metastases or recurrence. Solitary 3 mm focus of enhancement left medial cerebellum (series 19, image 32), has no correlating signal abnormality on any other sequence and is likely vascular. 2 mm focus of enhancement in the distal right IAC, consistent with a tiny acoustic schwannoma. This is unchanged. Enhancing DVA again noted in the right cerebellar hemisphere superiorly. Midline structures appear normally formed. The pituitary gland appears normal. Posterior fossa structures appear normal. Cerebellar tonsils are appropriately located. Major flow voids are preserved within the skull base. The globes and orbital contents demonstrate bilateral lens replacements. No additional abnormalities. Paranasal sinuses are clear bilaterally. The mastoids and tympanic cavities are normally aerated. Extracranial soft tissues demonstrate no abnormalities. No suspicious bone marrow changes are evident. MR/MR head/brain wo/w con IMPRESSION: 1. No acute intracranial hemorrhage, acute infarction, mass effect, or edema. No definite evidence of new or recurrent metastatic disease. 2. A vague 3 mm focus of enhancement of the left medial cerebellum as detailed, has no correlating signal abnormality on any other sequence and is likely vascular in etiology. Attention on follow-up recommended. 3. Stable mild encephalomalacia in the right periventricular aranda radiata, and subtle foci of gliosis in the regions of previously identified metastatic disease. 4. Stable 2 mm focus of nodular enhancement in the distal right IAC, consistent with a tiny acoustic schwannoma. This is unchanged 5. Ancillary findings as discussed. Electronically signed by: Fab Julio MD 05/22/2024 10:27 AM EST Dictated By: Fab Julio MD Signed By: <Electronically signed by Fab Julio MD in OV> 05/22/24 1027 DD/ 0903 TD/TT: 05/19/24 1005 Cut Off Man: [facility] External Provider IMG MRI PROCEDURES Edited Result - Final * Lipid Panel, Standard (05/09/2024 8:09 AM EST) Triglycerides 48 <150 mg/dL [facility] Comment:Desirable Triglyceri de: less than 150 mg/dLBorderline High Triglyceride 150-199 mg/dLHigh Triglyceride: 200-499 mg/dLVery High Triglyceride: greater than or equal to 5OO mg/dL Cholesterol 158 <200 mg/dL [facility] Comment:Desirable Cholestero l: less than 200 mg/dLBorderline High Cholesterol: 200-239 mg/dLHigh Cholesterol: greater than 239 mg/dL LDL Cholesterol Calculated 82 <100 mg/dL [facility] Comment:Desirable LDL: less than 100 mg/dLNear Optimal/Above Optimal LDL: 110- 129 mg/dLBorderline High LDL: 130-159 mg/dLHigh LDL: 160-189 mg/dLVery High LDL: greater than or equal to 190 mg/dL HDL Cholesterol 67 >40 mg/dL [facility] Comment:Desirable HDL: great er than 40 mg/dL Note: This HDL assay may give artificially low results in patients with liver disease. Blood Venous blood specimen / Unknown 05/09/2024 8:09 AM EST 05/09/2024 8:09 AM EST us Sarah Mathews MD LAB BLOOD ORDERABLES Final Resul t [facility] [address] [place] [phone] from Last 3 Months Insurance [facility] MEDIC[facility] ADVANTAGE HMO Care Teams Fender Mechanic Relationship Specialty Start Date End Date Sarah Mathews MD [address] [place] [phone] PCP - General Family Medicine 04/15/12 Juan BENITES 06/15/24
--- OUTSIDE RECORDS SUMMARY | 2024-08-03 12:35 | XMS_ITS | Encounter Summary ---
Author Organization [employer] Address [address] [place] [address] Care Team Providers Care Command And Control Specialist Name Role Phone Sarah Mathews MD Primary Care Provider [phone] Reason for Visit * Reason Onset Date Comments FYI 09/16/2023 Encounter Details Date Type Department Care Team ([facility] Contact Info) Description 09/16/2023 Telephone [facility] [address], [place] [phone] Sarah Mathews MD [address] [place] [address] FYI Social History Tobacco Use Types Packs/Day [...] encounter Miscellaneous Notes * Telephone Encounter - Imelda Barrientos RN - 09/23/2023 12:05 PM EDT Noted. * Telephone Encounter - Sarah Mathews MD - 09/23/2023 11:39 AM EDT We will watch the LFTS periodically Sarah Mathews MD aware of the interaction * Telephone Encounter - Cindy Bernal - 09/16/2023 11:49 AM EDT Tc from [facility] with Juan BENITES calling to report a drug interaction with gemfibrozil (Lopid) 600 MG tablet and pravastatin (Pravachol) 20 MG tablet. Any questions, contact [facility] at [phone] documented in this encounter Plan of Treatment Upcoming Encounters Date Type Department Care Team (Late st Contact Info) Description 08/26/2024 10:45 AM EST Office Visit [facility] [address] [place] [phone] Sarah Mathews MD [address] [facility] [place] [address] documented as of this encounter Visit Diagnoses Not on filedocumented in this encounter Care Teams Command And Control Specialist Relationship Specialty Start Date End Date Sarah Mathews MD [address] [place] [address] [place] [address] PCP - General Family Medicine 04/15/12 Juan BENITES 06/15/24 documented as of this encounter
--- OUTSIDE RECORDS SUMMARY | 2024-08-03 12:35 | XMS_ITS | Encounter Summary ---
Author Organization [email or web address] Address [address] [facility] [address] [place] [address] Care Team Providers Care Wood Handler Name Role Phone Sarah Mathews MD Primary Care Provider Encounter Details Date Type Department Care Team ([facility] st Contact Info) Description 08/03/2024 Orders Only GENERIC EXTERNAL DATA DEPARTMENT Provider, Generic External Data Social History Tobacco Use Types Packs/Day Years [...] 10:45 AM EST Office Visit [facility] MED & PEDS [address] [place] [address] Sarah Mathews MD [address] [place] [address] documented as of this encounter Procedures Procedure Name Priority Date/Time Associated Diagnosis Comments HIGH SENSITIVITY TROPONIN I Routine 08/03/2024 11:52 AM EST CBC WITH AUTO DIFFERENTIAL Routine 08/03/2024 11:52 AM EST MAGNESIUM Routine 08/03/2024 11:52 AM EST COMPREHENSIVE METABOLIC PANEL Routine 08/03/2024 11:52 AM EST HOLD LT BLUE - POSSIBLE COAG Routine 08/03/2024 11:50 AM EST documented in this encounter Results * High Sensitivity Troponin I (08/03/2024 11:52 AM EST) TROPONIN I HIGH SENSITIVITY 4.0 <3.5 - 17.0 ng/L [facility] Comment:The Tao high sens itivity Troponin-I results should beused in conjunction with other diagnostic information suchas ECG, clinical observations and information, and patientsymptoms to aid in the diagnosis of ND. 08/03/2024 11:5 2 AM EST 08/03/2024 11:58 AM EST us Generic External Data Provider LAB BLOOD ORDERAB LES Final Result Performing Organization Address City/[facility]/ZIP Co de Phone Number [facility] [address] [place] [phone] * Magnesium (08/03/2024 11:52 AM EST) Magnesium 2.0 1.6 - 2.6 mg/dL [facility] 08/03/2024 11:5 2 AM EST 08/03/2024 11:58 AM EST Generic External Data Provider LAB BLOOD ORDERAB LES Final Result Performing Organization Address [facility] Co de Phone Number [facility] [address] [place] [phone] * (ABNORMAL) Comprehensive Metabolic Panel (08/03/2024 11:52 AM EST) Pathologist [facility] Sodium 143 135 - 145 mmol/L [facility] Potassium 3.9 3.3 - 5.1 mmol/L [facility] Chloride 107 96 - 108 mmol/L [facility] Carbon Dioxide 29 22 - 29 mmol/L [facility] Anion Gap 11(L) 12 - 20 [facility] Urea Nitrogen (BUN) 28(H) 9 - 16 mg/dL [facility] Creatinine, Serum 0.94 0.5 - 1.4 mg/dL [facility] Creatinine Clr Calc Pharmacy 39.1 [facility] Comment:Provided height and weight: 162.56 cm,56.245 kg.eGFR (calculated from the MDRD study equation) and eCrCl(calculated from the Cockcroft-Gault equation) are based ondifferent parameters and may not yield comparable results.If eCrCl result is absurd, please check patient'sheight/weight. Estimated Glomerular Filt Rate 57 [facility] Comment:Chronic Kidney Disea se: Estimated GFR < 60 mL/min/1.49d1Aolquo Kidney Disease: Estimated GFR < 15 mL/min/1.73m2 Glucose 95 60 - 115 mg/dL [facility] Calcium 8.8 8.4 - 10.2 mg/dL [facility] Bilirubin, Total 0.3 0.0 - 1.0 mg/dL [facility] Aspartate Amino Transferase 19 5 - 31 U/L [facility] Alanine Aminotransferase <6 0 - 31 U/L [facility] Total Protein 6.7 6.5 - 8.0 g/dL [facility] Albumin Level 3.7 3.5 - 5.0 g/dL [facility] Alkaline Phosphatase 67 39 - 117 U/L [facility] 08/03/2024 11:5 2 AM EST 08/03/2024 11:58 AM EST us Generic External Data Provider LAB BLOOD ORDERAB LES Final Result [facility] [address] [place] [phone] * (ABNORMAL) CBC auto differential (08/03/2024 11:52 AM EST) White Blood Count 9.6 4.8 - 10.8 X10*3/uL [facility] Red Blood Count 3.46(L) 4.20 - 5.50 X10*6/uL [facility] Hemoglobin 11.6(L) 12.0 - 16.0 g/dl [facility] Hematocrit 37.6 37.0 - 47.0 % [facility] Mean Corpuscular Volume 108.7(H) 80.0 - 98.0 fL [facility] Mean Corpuscular Hemoglobin 33.5(H) 27.0 - 33.0 pg [facility] Mean Corpuscular HGB Conc 30.9(L) 31.0 - 35.0 g/dl [facility] Red Cell Distribution Width 15.3 11.0 - 16.0 % [facility] Platelet Count 194 160 - 400 X10*3/uL [facility] Mean Platelet Volume 9.7 9.4 - 12.3 fL [facility] Neutrophils Percent Auto 82.8(H) 45 - 73 % [facility] Imm Gran Pct Auto 2.2(H) 0.0 - 0.4 % [facility] Lymphocytes Percent Auto 6.8(L) 20 - 40 % [facility] Monocytes Percent Auto 7.3 2 - 11 % [facility] Eosinophils Percent Auto 0.5 0 - 4 % [facility] Basophils Percent Auto 0.4 0 - 2 % [facility] NRBC Pct Auto 0.0 0.0 - 0.2 /100WBC [facility] Neutrophils Absolute Auto 8.0 2.0 - 8.3 x10*3/uL [facility] Imm Gran Abs Auto 0.21(H) 0.00 - 0.03 X10*3/uL [facility] Lymphocytes Absolute Auto 0.7(L) 1.2 - 4.9 X10*3/uL [facility] Monocytes Absolute Auto 0.7 0.1 - 1.2 X10*3/uL [facility] Eosinophils Absolute Auto 0.1 0.0 - 0.4 X10*3/uL [facility] Basophils Absolute Auto 0.0 0.0 - 0.2 X10*3/uL [facility] NRBC Abs Auto 0.000 0.0 - 0.012 X10*3/uL [facility] 08/03/2024 11:5 2 AM EST 08/03/2024 11:58 AM EST us Generic External Data Provider LAB BLOOD ORDERAB LES Final Result [facility] [address] [place] [phone] * HOLD LT BLUE - POSSIBLE COAG (08/03/2024 11:50 AM EST) Hold Lt Blue - Possible Coag SEE NOTE [facility] Comment:Specimen will be hel d untested for 4 hours. Call Hematologyif testing is desired. 08/03/2024 11:5 0 AM EST 08/03/2024 12:02 PM EST us Generic External Data Provider LAB BLOOD ORDERAB LES Final Result [facility] [address] [place] [phone] documented in this encounter Visit Diagnoses Not on filedocumented in this encounter Additional Health Concerns Assessment Noted Time PHQ-9 Depression Total Score: 2 04/29/20 24 10:19 AM EST documented as of this encounter Care Teams Wood Handler Relationship Specialty Start Date End Date Sarah Mathews MD [address] [place] [phone] PCP - General Family Medicine 04/15/12 Juan BENITES 06/15/24 documented as of this encounter
--- OUTSIDE RECORDS SUMMARY | 2024-08-03 12:35 | XMS_ITS | Encounter Summary ---
Author Organization [employer] Address [address] [facility] [address] [place] [address] Care Team Providers Care Motion Picture Photographer Name Role Phone Sarah Mathews MD Primary Care Provider [phone] Reason for Visit * Reason Onset Date Comments Results 10/09/2023 Encounter Details Date Type Department Care Team ([facility] st Contact Info) Description 10/09/2023 Telephone [facility] MED & PEDS [address] [place], [place] [phone] Sarah Mathews MD [address] [place] [address] Results Social History Tobacco Use Types Packs/Day Years [...] Telephone Encounter - Imelda Barrientos RN - 10/10/2023 12:05 PM EDT Noted. Labs placed in HIM basket. * Telephone Encounter - Aida Dai RN - 10/10/2023 8:53 AM EDT TC placed to daughter, listed on HIPAA form, regarding message below. Daughter reports pt has chemotherapy and gets blood work done every other week and when she went on the brought in the orders given by Dr. Mathews (BMP, hepatic fx and lipid panel orders) to be done there. No lab results noted in chart. RN was able to obtain result with attending as Dr. Wolff, SUB: Dr. Mathews, for ordered:liver panel, BMP, lipid panel from [facility] and printed to [facility] for medical records and for providerto review. RN informed daughter, lab results would be given to provider to review. Daughter verbalized understanding and reports so if there is anything abnormal, she will contact us. RN informed anamika horan yes, provider will review and notify. Daughter verbalized understanding. No further questions or concerns expressed this time. Daughter/pt to F/U as needed. RN will forward message to [facility] to obtain lab results for provider. TC from pt daughter requesting call back regarding Results. Type of results: labs Date when done: 09/30/23 [place] [facility] [place] Telephone Encounter - Melissa Kirby - 10/09/2023 12:35 PM EDT TC from pt daughter requesting call back regarding Results. Type of results: labs Date when done: 09/30/23 Facility: [facility] documented in this encounter Plan of Treatment Upcoming Encounters Date Type Department Care Team (Late st Contact Info) Description 08/26/2024 10:45 AM EST Office Visit [facility] MED & PEDS [address] [place] [address] Sarah Mathews MD [address] [place] [address] documented as of this encounter Visit Diagnoses Not on filedocumented in this encounter Care Teams Motion Picture Photographer Relationship Specialty Start Date End Date Sarah Mathews MD [address] [place] [phone] PCP - General Family Medicine 04/15/12 Juan BENITES 06/15/24 documented as of this encounter
--- OUTSIDE RECORDS SUMMARY | 2024-08-03 12:35 | XMS_ITS | Encounter Summary ---
Author Organization [employer] Address [address] [facility] [address] [place] [address] Care Team Providers Care Maintenance Mechanic Supervisor Name Role Phone Sarah Mathews MD Primary Care Provider [phone] Reason for Visit * Reason Onset Date Comments Hospital Follow-up 09/11/2023 Encounter Details Date Type Department Care Team ([facility] Contact Info) Description 09/11/2023 Telephone [facility] MED & PEDS [address] [place], [place] [phone] Sarah Mathews MD [address] [place] [address] Hospital Follow-up Social History Tobacco Use Types Packs/Day Years [...] encounter Miscellaneous Notes * Telephone Encounter - Cindy Gabe - 09/11/2023 10:38 AM EDT Tc from pt requesting a HDF appt. [place] [facility] [place]: 09/06 Discharge date: 09/08 Diagnosed: UTI, Fall, Acute kidney injury, Hypokalemia Please contact daughter at [phone] documented in this encounter Plan of Treatment Upcoming Encounters Date Type Department Care Team (Late st Contact Info) Description 08/26/2024 10:45 AM EST Office Visit [facility] MED & PEDS [address] [place] [phone] Sarah Mathews MD [address] [place] [phone] documented as of this encounter Visit Diagnoses Not on filedocumented in this encounter Care Teams Maintenance Mechanic Supervisor Relationship Specialty Start Date End Date Sarah Mathews MD [address] [place] [phone] PCP - General Family Medicine 04/15/12 Juan Daniella 06/15/24 documented as of this encounter
[2024-08-03 12:46] LABS: Influenza A PCR NEGATIVE (Negative); Influenza B PCR NEGATIVE (Negative); Resp Syncy Virus RNA Qual PCR NEGATIVE (Negative); SARS COV2 PCR INHOUSE NEGATIVE (Negative)
--- NOTE | 2024-08-03 13:26 | PC.NURSE ---
Confirmed w/ provider no blood cultures needed.
[2024-08-03] MEDS: Doxycycline Hyclate 100 MG in 0.9 % Sodium Chloride 250 ML 166.67 MG IV (13:34)
--- NOTE | 2024-08-03 14:26 | PM.IMHP ---
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 Wolff for cancer care) who comes with an increase in dyspnea and weakness x 2 days. When asked denies needing increased use of PRN 02, states she used maybe 1-2 times the last two days (2L via [place]). Denies sputum production, hemoptysis, wheezing or pleuritic pain. States she has a primarily non-productive cough at baseline, confirms she still is smoking daily, around 6 cigarettes, stated she smoked 3 this am prior to arrival. Denies recent sick contacts. She herself was seen recently however at urgent care, also for URI symptoms, and was prescribed prednisone and z-eliel, which she states she completed on Saturday, the day of or before she describes is when her current symptoms arose. Denies any CP, palpitations, edema, pain or redness to lower extremities, N/V/D, fevers, or chills, and no recent travel. Last chemo dose cycle#32 completed on 07/21, was pending chemo tomorrow with Dr. Wolff. Review of Systems Constitutional: Comments: Denies any wt loss, fever, or chills, no changes to sleep Endorses fatigue Eyes: Comments: Denies any changes to vision ENT: Comments: Denies headache, vertigo, changes to hearing, sore throat or rhinorrhea Cardiovascular: Comments: Denies palpitations, diaphoresis, orthopnea, edema, pain Respiratory: Comments: Denies hemoptysis, pleuritic pain, wheeze Endorses dyspnea Gastrointestinal: Comments: Denies N/V/D, no changes to appetite, bleeding, or pain Genitourinary: Comments: Denies frequency, urgency, pain, burning or hematuria Musculoskeletal: Comments: Denies musce or joint pain, stiffness, swelling of joints Integumentary/Breasts: Comments: Denies itchiness or dryness, lesions or rashes Neurologic: Comments: Denies dizziness, syncope or seizures, numbness, or tingling, or tremors Psychiatric: Comments: Denies anxiety, depression ,or memory changes Endocrine: Comments: Denies any intolerance to temperature, polyuria or dipsia, or bleeding Hematologic/Lymphatic: Comments: Endorses lung cancer hx Allergic/Immunologic: Comments: Denies REPLACED BY [facility] Medical History Anemia Hypoxemia Smoker COPD (chronic obstructive pulmonary disease) Diverticulosis Hypercholesteremia IBS (irritable bowel syndrome) HTN (hypertension) Family History Sister Breast cancer Surgical History Small cell carcinoma Hx of tonsillectomy Hx of appendectomy History of lumpectomy Lymphadenopathy, mediastinal Lung mass H/O colonoscopy Social History Household Members: None Housing: Apartment Do you presently have visiting nurse or other home services: No Alcohol intake: never Patient Tobacco Use Status: Current everyday Tobacco user Tobacco use type: Cigarette Cigarette Packs Per Day: 0.25 Cigarettes Per Day: 4 Years Smoked: 60 Smoked in Last 30 Days: Yes e-Cigarette/Vaping Use: Currently Using Second Hand Smoke Exposure: No Use of substances other than those prescribed or required for medical reasons: No Advance Directives: Yes Advance Directives Information Provided: No Advance Directives on File: No Do you have a plan to hurt others: No Plan service: No Current occupational status: retired [employer] Allergies Allergy/AdvReac Type Severity Reaction Status Date / Time No Known Allergies Allergy Verified 08/03/24 10:48 [No Known Allergies*] Home Medications ?Medication ?Instructions ?Recorded ?Confirmed ?Last Taken ?Type pravastatin 20 mg tablet 20 mg PO BEDTIME 12/13/21 08/03/24 08/02/24 History gemfibrozil 600 mg tablet 600 mg PO BID 06/11/24 08/03/24 08/03/24 History albuterol sulfate 90 mcg/actuation 2 inh inhalation Q6H PRN Shortness 08/03/24 08/03/24 08/02/24 History aerosol inhaler (Ventolin HFA) Of Breath Or Wheezing levothyroxine 125 mcg tablet 125 mcg PO DAILY@0600 08/03/24 08/03/24 08/03/24 History Physical Exam Vital Signs and Narrative: Vital Signs: Last Vital Signs Temp 97.7 F 08/03/24 10:43 Pulse 71 08/03/24 12:13 Resp 18 08/03/24 12:13 BP 108/56 L 08/03/24 10:43 Pulse Ox 88 L 08/03/24 10:43 O2 Del Method Room Air 08/03/24 10:43 BMI result Body Mass Index 21.3 Const: General: cooperative, no acute distress, alert and awake Nutritional Appearance: average body habitus Orientation/consciousness: patient oriented x3 HEENT: Head: Yes normal to inspection Ears: hearing grossly normal bilaterally Eyes: General: appearance normal, both eyes and all related structures Conjunctivae: conjunctivae normal Pupils: Equal, round and reactive pupils present EOM: EOMs intact bilaterally Neck: Yes normal visual inspection and Yes full ROM Resp: Effort & Inspection: normal respiratory effort, able to speak in complete sentences and Actively coughing Quality: dry Auscultation: wheezes throughout and diminished lung sounds diffuse Cardio: Jugular venous distension: no JVD Rate: regular rate Rhythm: regular rhythm GI: Inspection: Yes normal to inspection Palpation (GI): Soft to palpation Auscultation: normal bowel sounds : General: Yes no CVA tenderness Back/Spine/Pelvis: Back: no CVA tenderness Cervical Spine: cervical ROM normal Thoracic/Lumbar Spine: thoraco-lumbar ROM normal Skin: General skin exam: no rashes or lesions noted Neuro: General: patient oriented x3 Cranial nerves: Yes CN's II-XII intact bilaterally, Yes Equal, round and reactive pupils present and Yes Bilaterally intact EOM present Cognition (Neuro): normal cognition Extrem: General: Yes normal to inspection and Yes full ROM Psych: Appearance: grossly normal Mental Status: mental status grossly normal Speech and movement: Normal speech and movement present Affect: normal affect Results Labs 08/03/24 11:52 08/03/24 11:52 Labs: Laboratory Results - last 24 hr 08/03/24 08/03/24 11:50 11:52 MCV 108.7 H MCH 33.5 H MCHC 30.9 L RDW 15.3 Plt Count 194 MPV 9.7 Immature Gran % (Auto) 2.2 H Neut % (Auto) 82.8 H Lymph % (Auto) 6.8 L Riley % (Auto) 7.3 Eos % (Auto) 0.5 Baso % (Auto) 0.4 Lymph # (Auto) 0.7 L Riley # (Auto) 0.7 Eos # (Auto) 0.1 Baso # (Auto) 0.0 Abs Immat Gran (auto) 0.21 H Absolute Neuts (auto) 8.0 Absolute Nucleated RBC 0.000 Nucleated RBC % (auto) 0.0 Hold Blue Top SEE NOTE Anion Gap 11 L Estim Creat Clear Calc 39.1 Estimated GFR 57 Random Glucose 95 Calcium 8.8 D Magnesium 2.0 Total Bilirubin 0.3 AST 19 ALT < 6 Alkaline Phosphatase 67 Troponin I High Sens 4.0 Total Protein 6.7 Albumin 3.7 Influenza Type A (PCR) NEGATIVE Influenza Type B (PCR) NEGATIVE RSV RNA Qual (PCR) NEGATIVE SARS-CoV-2 RNA (RT-PCR) NEGATIVE Imaging Radiologist's Impressions: Impressions Chest X-Ray 08/03/24 11:00 IMPRESSION: No acute cardiopulmonary process seen. 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 Wolff for cancer care) who comes with an increase in dyspnea and weakness x 2 days. Acute and chronic respiratory failure, secondary to COPD exacerbation CXR negative for any acute cardiopulmonary processes EKG Nsr Supplemental 02, goal sat 88-92% Solumedrol IV Duonebs scheduled, and PRN Doxycycline HLD Continue statin Anemia, chronic No current treatments HTN Continue HCTZ Hypothyroidism Continue levothyroxine Lung cancer currently undergoing chemo, sees Dr. Wolff Heme/onc consulted DVT prophylaxis with Lovenox Full code Quality Stroke Does the patient have a stroke diagnosis?: No VTE Prior VTE?: No VTE Risk Level:: Medical - moderate - high VTE Device Contraindication: Treatment Not Indicated VTE Drug Contraindication: N/A - Med Ordered
--- NOTE | 2024-08-03 14:41 | PHA.MEDREC ---
Addendum entered by Carlo Gonzalez RPh 08/03/24 15:22: Med rec was reviewed by [facility]. Original Note: Pharmacy Consult ? Medication Reconciliation Pharmacy has completed the medication reconciliation. Spoke to patients daughter at bedside to confirm med list. Daughter states patient is not taking HCTZ 25 mg ( Dr Leon/Fatou June), and Furosemide 20 mg ( patient hasn't started yet. Having trouble with there pharmacy)
[2024-08-03 15:54] LABS: Appearance Urine Cloudy; Color Urine Yellow; Glucose Urine UA Negative (Negative); Leukocyte Esterase Urine Large (3+) (Negative); Nitrite Urine Positive (Negative); PH 5.5 (5.0-9.0); Specific Gravity - Urine 1.015 (1.005-1.025); UMIC TRIGGER UACC YES; Urine Blood Small (1+) (Negative); Urine Ketones Negative (Negative); Urine Protein 30 (1+) mg/dL (Neg-Trace)
[2024-08-03 16:07] LABS: Bacteria Urine 4+ (None Seen); Hyaline Casts Urine 0-2 /LPF (0-2); RBC Urine 0-2 /HPF (0-2); Squamous Epithelial Cell Urine 0-2 /HPF (0-2); UACC Culture Trigger YES; WBC Urine >50 /HPF (0-5)
[2024-08-03] MEDS: Albuterol/Iprat 2.5/0.5MG 3 ML AMPUL.NEB INHALE ×2 (16:24→18:54)
[2024-08-03] MEDS: Enoxaparin Sodium 40 MG/0.4 ML SYRINGE SUBCUT (16:43)
[2024-08-03] MEDS: 0.9 % Sodium Chloride Flush 3 ML SYRINGE IVFLUSH ×2 (16:43→23:36)
[2024-08-03] MEDS: Albumin Human 25 % 100 ML IV (20:37)
[2024-08-03] MEDS: cefTRIAXone sodium 1 GM VIAL IVPUSH (21:49)
[2024-08-03] MEDS: Pravastatin Sodium 20 MG TABLET PO (22:31)
[2024-08-04] VITALS (11 sets, daily range): BP systolic 104–136; BP diastolic 54–71; PULSE 72–94; RESP 16–22; TEMP 36.6–37; O2SAT 95–100
[2024-08-04] MEDS: Albumin Human 25 % 100 ML IV (02:07)
--- NOTE | 2024-08-04 03:22 | PM.EVENT ---
Event Note Date of Service: 08/04/24 Event Note: Patient with UTI, will add ceftriaxone Time Spent With Patient Time: Total time managing care of this patient today ____ minutes.
[2024-08-04 06:02] LABS: MANUAL DIFF FLAG NO
[2024-08-04 06:04] LABS: Basophils Percent Auto 0.2 % (0-2); Hemoglobin 9.4 g/dl (12.0-16.0); Imm Gran Abs Auto 0.13 X10*3/uL (0.00-0.03); Imm Gran Pct Auto 1.5 % (0.0-0.4); Lymphocytes Absolute Auto 0.6 X10*3/uL (1.2-4.9); Lymphocytes Percent Auto 6.6 % (20-40); Mean Corpuscular HGB Conc 30.3 g/dl (31.0-35.0); Mean Corpuscular Hemoglobin 32.9 pg (27.0-33.0); Mean Corpuscular Volume 108.4 fL (80.0-98.0); Mean Platelet Volume 10.1 fL (9.4-12.3); Monocytes Absolute Auto 0.6 X10*3/uL (0.1-1.2); Monocytes Percent Auto 6.7 % (2-11); Neutrophils Absolute Auto 7.4 x10*3/uL (2.0-8.3); Platelet Count 167 X10*3/uL (160-400); Red Blood Count 2.86 X10*6/uL (4.20-5.50); White Blood Count 8.7 X10*3/uL (4.8-10.8)
[2024-08-04 06:23] LABS: Alanine Aminotransferase < 6 U/L (0-31); Alkaline Phosphatase 57 U/L (39-117); Anion Gap 11 (12-20); Aspartate Amino Transferase 14 U/L (5-31); Bilirubin Total 0.3 mg/dL (0.0-1.0); Blood Urea Nitrogen 32 mg/dL (9-16); Calcium 8.9 mg/dL (8.4-10.2); Carbon Dioxide 29 mmol/L (22-29); Chloride 108 mmol/L (96-108); Creatinine Clr Calc Pharmacy 37.9; Estimated Glomerular Filt Rate 55; Glucose Random 84 mg/dL (60-115); Potassium 4.3 mmol/L (3.3-5.1); Sodium 144 mmol/L (135-145); Total Protein 6.4 g/dL (6.5-8.0)
[2024-08-04] MEDS: Levothyroxine Sodium 125 MCG TABLET PO (06:54)
[2024-08-04] MEDS: Albuterol/Iprat 2.5/0.5MG 3 ML AMPUL.NEB INHALE ×4 (07:33→19:29)
[2024-08-04] MEDS: 0.9 % Sodium Chloride Flush 3 ML SYRINGE IVFLUSH ×3 (08:23→20:22)
[2024-08-04] MEDS: methylPREDNISolone Sod Succ 40 MG/ML VIAL IVPUSH ×2 (08:24→20:09)
[2024-08-04] MEDS: Doxycycline Hyclate 100 MG in 0.9 % Sodium Chloride 250 ML 166.67 MG IV ×2 (08:25→20:20)
--- NOTE | 2024-08-04 08:53 | P.PNIM_ITS ---
Subjective Subjective Date of Service: 08/04/24 Review of Systems Follow-up visit completed for Acute and chronic respiratory failure, secondary to COPD exacerbation Pt reports respiratory symptoms seems to have improved, she is feeling a little bit better. Denies any urinary symptoms. Constitutional Alert and oriented, denies fever, chills Cardiovascular Denies palpitations, diaphoresis, orthopnea, edema, pain Respiratory Denies hemoptysis, pleuritic pain, wheeze Endorses dyspnea is improving Gastrointestinal Denies N/V/D, no changes to appetite, bleeding, or pain Genitourinary Denies frequency, urgency, pain, burning or hematuria Physical Exam 2 Vital Signs: Vital Signs: Last Vital Signs Temp 97.8 F 08/04/24 08:26 Pulse 85 08/04/24 08:26 Resp 20 08/04/24 08:26 BP 124/60 08/04/24 08:26 Pulse Ox 98 08/04/24 08:26 O2 Del Method Nasal Cannula 08/04/24 08:26 O2 Flow Rate 2 08/04/24 08:26 BMI result Body Mass Index 21.3 Const: General: cooperative, no acute distress, alert and awake Resp: Effort & Inspection: normal respiratory effort and able to speak in complete sentences Auscultation: wheezes throughout and diminished lung sounds diffuse Cardio: Jugular venous distension: no JVD Rate: regular rate Rhythm: r egular rhythm GI: Inspection: Yes normal to inspection Palpation (GI): Soft to palpation Auscultation: normal bowel sounds : General: Yes no CVA tenderness Back/Spine/Pelvis: Back: no CVA tenderness Objective Data Active Medications Acetaminophen (Acetaminophen 325 Mg Tablet) 650 mg PO Q6H PRN PRN Reason: Pain, Mild 1-3,fever,headache Albuterol Sulfate (Albuterol Sulfate 90 Mcg 8 Gm Inhaler) 2 puff INHALE Q6H PRN PRN Reason: Shortness Of Breath Or Wheezing Albuterol/Ipratropium (Albuterol/Iprat 2.5/0.5mg 3 Ml Ampul.Neb) 3 ml INHALE RQ4H WHILE AWAKE WOODY Last Admin: 08/04/24 07:33 Dose: 3 ml Documented By: QUE Alprazolam (Alprazolam 0.25 Mg Tablet) 0.25 mg PO BEDTIME PRN PRN Reason: Anxiety Calcium Carbonate (Calcium Carbonate 750 Mg Tab.Chew) 750 mg PO Q4H PRN PRN Reason: Heartburn Ceftriaxone Sodium (Ceftriaxone Sodium 1 Gm Vial) 1 gm IVPUSH Q24H [facility] Last Admin: 08/03/24 21:49 Dose: 1 gm Documented By: GABBY Enoxaparin Sodium (Enoxaparin Sodium 40 Mg/0.4 Ml Syringe) 40 mg SUBCUT Q24H [facility] Last Admin: 08/03/24 16:43 Dose: 40 mg Documented By: JACI Doxycycline Hyclate 100 mg/ (Sodium Chloride) 250 mls @ 166.67 mls/hr IV Q12H [facility] Last Admin: 08/04/24 08:25 Dose: 166.67 mls/hr Documented By: JOHN Levothyroxine Sodium (Levothyroxine Sodium 125 Mcg Tablet) 125 mcg PO DAILY@0600 [facility] Last Admin: 08/04/24 06:54 Dose: 125 mcg Documented By: GABBY Magnesium Hydroxide (Milk Of Magnesia 30 Ml Oral.Susp) 30 ml PO DAILY PRN PRN Reason: Constipation Melatonin (Melatonin 3 Mg Tablet) 6 mg PO BEDTIME PRN PRN Reason: Insomnia Methylprednisolone Sodium Succinate (Methylprednisolone Sod Succ 40 Mg/Ml Vial) 40 mg IVPUSH Q12H [facility] Last Admin: 08/04/24 08:24 Dose: 40 mg Documented By: JOHN Ondansetron HCl (Ondansetron Hcl 4 Mg/2 Ml Vial) 4 mg IVPUSH Q8H PRN PRN Reason: Nausea and Vomiting Pravastatin Sodium (Pravastatin Sodium 20 Mg Tablet) 20 mg PO BEDTIME [facility] Last Admin: 08/03/24 22:31 Dose: 20 mg Documented By: GABBY Sodium Chloride (0.9 % Sodium Chloride Flush 3 Ml Syringe) 3 ml IVFLUSH QSHIFT [facility] Last Admin: 08/04/24 08:23 Dose: 3 ml Documented By: JOHN Labs 08/04/24 05:37 08/04/24 05:37 Labs: Laboratory Results - last 24 hr 08/03/24 08/03/24 08/03/24 11:50 11:52 15:33 MCV 108.7 H MCH 33.5 H MCHC 30.9 L RDW 15.3 Plt Count 194 MPV 9.7 Immature Gran % (Auto) 2.2 H Neut % (Auto) 82.8 H Lymph % (Auto) 6.8 L [place] % (Auto) 7.3 Eos % (Auto) 0.5 Baso % (Auto) 0.4 Lymph # (Auto) 0.7 L [place] # (Auto) 0.7 Eos # (Auto) 0.1 Baso # (Auto) 0.0 Abs Immat Gran (auto) 0.21 H Absolute Neuts (auto) 8.0 Absolute Nucleated RBC 0.000 Nucleated RBC % (auto) 0.0 Hold Blue Top SEE NOTE Anion Gap 11 L Estim Creat Clear Calc 39.1 Estimated GFR 57 Random Glucose 95 Calcium 8.8 D Magnesium 2.0 Total Bilirubin 0.3 AST 19 ALT < 6 Alkaline Phosphatase 67 Troponin I High Sens 4.0 Total Protein 6.7 Albumin 3.7 Urine Color Yellow Urine Appearance Cloudy Urine pH 5.5 Ur Specific [place] 1.015 Urine Protein 30 (1+) H Urine Glucose (UA) Negative Urine Ketones Negative Urine Blood Small (1+) H Urine Nitrite Positive H Ur Leukocyte Esterase Large (3+) H Urine RBC 0-2 Urine WBC >50 H Ur Squamous Epith Cells 0-2 Urine Bacteria 4+ Hyaline Casts 0-2 Influenza Type A (PCR) NEGATIVE Influenza Type B (PCR) NEGATIVE RSV RNA Qual (PCR) NEGATIVE SARS-CoV-2 RNA (RT-PCR) NEGATIVE 08/04/24 05:37 MCV 108.4 H MCH 32.9 MCHC 30.3 L RDW 15.0 Plt Count 167 MPV 10.1 Immature Gran % (Auto) 1.5 H Neut % (Auto) 85.0 H Lymph % (Auto) 6.6 L [place] % (Auto) 6.7 Eos % (Auto) 0.0 Baso % (Auto) 0.2 Lymph # (Auto) 0.6 L [place] # (Auto) 0.6 Eos # (Auto) 0.0 Baso # (Auto) 0.0 Abs Immat Gran (auto) 0.13 H Absolute Neuts (auto) 7.4 Absolute Nucleated RBC 0.000 Nucleated RBC % (auto) 0.0 Hold Blue Top Anion Gap 11 L Estim Creat Clear Calc 37.9 Estimated GFR 55 Random Glucose 84 Calcium 8.9 Magnesium Total Bilirubin 0.3 AST 14 ALT < 6 Alkaline Phosphatase 57 Troponin I High Sens Total Protein 6.4 L Albumin 4.0 Urine Color Urine Appearance Urine pH Ur Specific [place] Urine Protein Urine Glucose (UA) Urine Ketones Urine Blood Urine Nitrite Ur Leukocyte Esterase Urine RBC Urine WBC Ur Squamous Epith Cells Urine Bacteria Hyaline Casts Influenza Type A (PCR) Influenza Type B (PCR) RSV RNA Qual (PCR) SARS-CoV-2 RNA (RT-PCR) Assessment and Plan (1) UTI (urinary tract infection): Status: Acute Plan 84 yo female with PMH significant for HTN, HLD, COPD on 2 liters/minute home O2 p.r.n., 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 Wolff for cancer care) who comes with an increase in dyspnea and weakness x 2 days. Acute and chronic respiratory failure, secondary to COPD exacerbation CXR negative for any acute cardiopulmonary processes EKG Nsr Supplemental 02, goal sat 88-92% Solumedrol IV Duonebs scheduled, and PRN Doxycycline GNR UTI started on ceftriaxone Follow final cx HLD Continue statin Anemia, chronic No current treatments HTN Continue HCTZ Hypothyroidism Continue levothyroxine Lung cancer currently undergoing chemo, sees Dr. Wolff Heme/onc consulted DVT prophylaxis with Lovenox Full code Quality Stroke Does the patient have a stroke diagnosis?: No VTE Prior VTE?: No VTE Risk Level:: Medical - moderate - high VTE Device Contraindication: Treatment Not Indicated VTE Drug Contraindication: N/A - Med Ordered
--- NOTE | 2024-08-04 10:45 | MHC.CM.PN ---
PTLIVES ALONE HAS SERVICES THRU HV AND HAS HOME 02 PT HAS A RIDE HOME WHEN DCD
--- NOTE | 2024-08-04 11:36 | PC.NURSE ---
Pt alert and oriented, breathing even and unlabored while at rest. Pt is on her 2L O2 NC and sating well, does have nonproductive cough. Denying any pain or new complaints. Ate some of her breakfast.
--- NOTE | 2024-08-04 11:50 | P.CDIM_ITS ---
PROVIDER RESPONSE TEXT: To clarify, the appropriate diagnosis supported by the clinical indicators: Acute and chronic Respiratory failure with hypoxia: acute QUERY TEXT: PHYSICIAN'S DOCUMENTATION REQUEST Date of Query: 08/04/2024 10:34 AM EST Patient Name: Janine Felder Admit Date: 08/03/2024 Dear Xin Keene [employer]ER, A review of the medical record indicates additional documentation may be needed. Please review below and update the documentation accordingly. Acute and chronic Respiratory failure was documented on 08/03/24. Clinical Indicators: PMH: small cell lung cancer COPD exacerbation Supplemental O2, goal SAT 88-92%, IV Solu-Medrol, Duoneb, Doxycline If possible, please further clarify the type and acuity of respiratory failure: Acute and chronic Respiratory failure with hypoxia Please specify acuity as Acute, Chronic, or Acute on chronic if known Acute and chronic Respiratory failure with hypercapnia Acute and chronic Respiratory failure with hypoxia and hypercapnia Other (explain) Clinically unable to determine (explain) Thank you, Lenore Stanford RN Use of terms such as suspected, likely, concern for, or probable (associated with a specific diagnosi s that is being evaluated, monitored, or treated as if it exists) are acceptable and can be coded in the inpatient se tting, when documented at the time of discharge. Please use your independent medical judgment in providing your response. THIS QUERY IS PART OF THE PERMANENT MEDICAL RECORD
--- NOTE | 2024-08-04 13:00 | PM.HEMONCCN ---
Subjective - Subjective Chief complaint: CONSULT FOR: Small-cell carcinoma of the lung. Brain metastases. Patient: known to practice within the last 3 years Consult date: 08/04/24 Requesting Physician: Sarah Mathews MD Primary Care Provider: Sarah Mathews MD Family Provider: Sarah Mathews MD. Medical Summary: DIAGNOSIS: Advanced small-cell carcinoma of the lung. Account Executive Trainee Utilized?: No - [place]se Speaking HPI - Consult Narrative Reason for consult: Consult for: Small-cell carcinoma of the lung. Narrative: Janine Felder is a 84 year old lady, admitted on 08/03 on account of shortness of breath. She has a history of small-cell lung cancer on chemotherapy. She presented with an increase in dyspnea and weakness x 2 days. She denies needing increased use of PRN 02, states she used maybe 1-2 times the last two days (2L via [place]). Denies sputum production, hemoptysis, wheezing or pleuritic pain. States she has a primarily non-productive cough at baseline, confirms she still is smoking daily, around 6 cigarettes, stated she smoked 3 this am prior to arrival. Denies recent sick contacts. She was seen recently at urgent care, also for URI symptoms, and was prescribed prednisone and z-eliel. She states she completed it on Saturday, the day of or before she describes is when her current symptoms arose. Denies any CP, palpitations, edema, pain or redness to lower extremities, N/V/D, fevers, or chills, and no recent travel. Last chemo dose cycle#32 completed on 07/21. PAST MEDICAL HISTORY: PMH significant for HTN, HLD, COPD on 2 liters/minute home O2 p.r.n. History of breast cancer: 20 years ago. She says she had a lumpectomy and was not tamoxifen for 5 years. She does not remember which hospital in [place]. COPD (chronic obstructive pulmonary disease) Diverticulosis HTN (hypertension) Hypercholesteremia IBS (irritable bowel syndrome) Small cell carcinoma Smoker Surgical History: H/O colonoscopy History of lumpectomy Hx of appendectomy Hx of tonsillectomy Lung mass Lymphadenopathy, mediastinal Family History: Sister with Breast cancer. A sister has lung cancer. Social History: She previously for [employer] turn in a good firm. Then for [employer]. 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 She is . She has 4 daughters. She started smoking in her 20s. She smoked a pack a day, Review of Systems - Constitutional Reports anorexia, Reports fatigue, Reports lack of energy, Reports malaise, Reports poor appetite, Reports weight loss - Eyes Reports no additional eye complaints - ENT Reports no additional ear, nose, mouth, and throat complaints - Cardiovascular Reports no additional cardiovascular complaints - Respiratory Reports no additional respiratory complaints - Gastrointestinal Reports no additional gastrointestinal complaints - Genitourinary Reports no additional female genitourinary complaints - Musculoskeletal Reports no additional musculoskeletal complaints - Integumentary/Breasts Skin/Breast: Reports no additional skin complaints - Neurologic Reports no additional neurologic complaints - Psychiatric Reports no additional psychiatric complaints - Endocrine Reports no additional endocrine complaints - Hematologic/Lymphatic Reports no additional hematologic/lymphatic complaints - Allergic/Immunologic Reports no additional allergic/immunologic complaints Oncology Screenings - ECOG Performance Status ECOG Performance Status: 2 [facility] Medical History: Medical History (Last Reviewed 06/30/24 @ 13:34 by Janet Soliz MD) Anemia COPD (chronic obstructive pulmonary disease) Diverticulosis HTN (hypertension) Hypercholesteremia Hypoxemia IBS (irritable bowel syndrome) Smoker Functional capacity: wheelchair bound Patient : No Family History: Family History (Last Reviewed 06/30/24 @ 13:34 by Janet Soliz MD) Sister Breast cancer Surgical History: Surgical History (Last Reviewed 06/30/24 @ 13:34 by Janet Soliz MD) H/O colonoscopy History of lumpectomy Hx of appendectomy Hx of tonsillectomy Lung mass Lymphadenopathy, mediastinal Small cell carcinoma Social History: Social History (Last Reviewed 06/30/24 @ 13:34 by Janet Soliz MD) Living Situation History: Household Members: None Housing: Apartment Do you presently have visiting nurse or other home services: No Tobacco History: Patient Tobacco Use Status: Current everyday Tobacco Tobacco use type: Cigarette Cigarette Packs Per Day: 0.25 Years Smoked: 60 e-Cigarette/Vaping Use: Currently Using Second Hand Smoke Exposure: No Advance Directives: Advance Directives Date on File: 08/04/24 Occupation Assessmet: service: No Current occupational status: retired Home Medications and Allergies Current Medications: Current Medications Acetaminophen (Acetaminophen 325 Mg Tablet) 650 mg PO Q6H PRN PRN Reason: Pain, Mild 1-3,fever,headache Albuterol Sulfate (Albuterol Sulfate 90 Mcg 8 Gm Inhaler) 2 puff INHALE Q6H PRN PRN Reason: Shortness Of Breath Or Wheezing Albuterol/Ipratropium (Albuterol/Iprat 2.5/0.5mg 3 Ml Ampul.Neb) 3 ml INHALE RQ4H WHILE AWAKE [facility] Last Admin: 08/04/24 11:52 Dose: 3 ml Alprazolam (Alprazolam 0.25 Mg Tablet) 0.25 mg PO BEDTIME PRN PRN Reason: Anxiety Calcium Carbonate (Calcium Carbonate 750 Mg Tab.Chew) 750 mg PO Q4H PRN PRN Reason: Heartburn Ceftriaxone Sodium (Ceftriaxone Sodium 1 Gm Vial) 1 gm IVPUSH Q24H [facility] Last Admin: 08/03/24 21:49 Dose: 1 gm Enoxaparin Sodium (Enoxaparin Sodium 40 Mg/0.4 Ml Syringe) 40 mg SUBCUT Q24H [facility] Last Admin: 08/03/24 16:43 Dose: 40 mg Doxycycline Hyclate 100 mg/ (Sodium Chloride) 250 mls @ 166.67 mls/hr IV Q12H [facility] Last Infusion: 08/04/24 09:56 Dose: Infused Levothyroxine Sodium (Levothyroxine Sodium 125 Mcg Tablet) 125 mcg PO DAILY@0600 [facility] Last Admin: 08/04/24 06:54 Dose: 125 mcg Magnesium Hydroxide (Milk Of Magnesia 30 Ml Oral.Susp) 30 ml PO DAILY PRN PRN Reason: Constipation Melatonin (Melatonin 3 Mg Tablet) 6 mg PO BEDTIME PRN PRN Reason: Insomnia Methylprednisolone Sodium Succinate (Methylprednisolone Sod Succ 40 Mg/Ml Vial) 40 mg IVPUSH Q12H [facility] Last Admin: 08/04/24 08:24 Dose: 40 mg Ondansetron HCl (Ondansetron Hcl 4 Mg/2 Ml Vial) 4 mg IVPUSH Q8H PRN PRN Reason: Nausea and Vomiting Pravastatin Sodium (Pravastatin Sodium 20 Mg Tablet) 20 mg PO BEDTIME [facility] Last Admin: 08/03/24 22:31 Dose: 20 mg Sodium Chloride (0.9 % Sodium Chloride Flush 3 Ml Syringe) 3 ml IVFLUSH QSHIFT [facility] Last Admin: 08/04/24 08:23 Dose: 3 ml Home Medications ?Medication ?Instructions ?Recorded ?Confirmed ?Type pravastatin 20 mg tablet 20 mg PO BEDTIME 12/13/21 08/03/24 History gemfibrozil 600 mg tablet 600 mg PO BID 06/11/24 08/03/24 History albuterol sulfate 90 mcg/actuation 2 inh inhalation Q6H PRN Shortness 08/03/24 08/03/24 History aerosol inhaler (Ventolin HFA) Of Breath Or Wheezing levothyroxine 125 mcg tablet 125 mcg PO DAILY@0600 08/03/24 08/03/24 History Allergies Allergy/AdvReac Type Severity Reaction Status Date / Time No Known Allergies Allergy Verified 08/03/24 10:48 [No Known Allergies*] Physical Exam Vital signs: Vital Signs Temp 97.8 F 08/04/24 08:26 Pulse 75 08/04/24 11:54 Resp 20 08/04/24 11:54 BP 124/60 08/04/24 08:26 Pulse Ox 98 08/04/24 08:26 O2 Del Method Nasal Cannula 08/04/24 08:26 O2 Flow Rate 2 08/04/24 08:26 Intake & Output 08/03/24 08/04/24 08/04/24 18:59 06:59 18:59 Intake Total 250 / 450 200 / 450 250 / 250 Balance 250 / 450 200 / 450 250 / 250 Intake: Intake, IV Amount 250 / 450 200 / 450 250 / 250 Albumin Human 25 % 100 ml @ 100 200 / 200 mls/hr IV Q6H [facility] Rx#: [id number] Doxycycline Hyclate 100 mg In 0 250 / 250 250 / 250 .9 % Sodium Chloride 250 ml @ 166.67 mls/hr IV Q12H [facility] Rx#: [id number] Other: Last Bowel Movement 08/03/24 Weight 56.245 kg Weight 56.245 kg - Constitutional Present: moderate distress - Routine HEENT Exam Head: Present: normal inspection, normocephalic ENT: Present: mucous membranes moist - Routine Neck Exam Present: supple - Routine Respiratory Exam Present: decreased breath sounds - Routine Cardiovascular Exam Cardiovascular: Present: RRR, S1, S2 - Routine Abdominal Exam Present: nontender - Routine Skin Exam Present: intact, normal turgor - Routine Neurological Exam Present: alert, oriented X3 Hem/Onc Consult Result - Labs CBC & Chem 7: 08/04/24 05:37 08/04/24 05:37 Labs: Short CBC 08/04/24 Range/Units 05:37 WBC 8.7 (4.8-10.8) X10*3/uL Hgb 9.4 L (12.0-16.0) g/dl Hct 31.0 L (37.0-47.0) % Plt Count 167 (160-400) X10*3/uL BMP 08/04/24 05:37 Sodium 144 Potassium 4.3 Chloride 108 Carbon Dioxide 29 BUN 32 H Creatinine 0.97 Calcium 8.9 Liver Function 08/04/24 Range/Units 05:37 Total Bilirubin 0.3 (0.0-1.0) mg/dL AST 14 (5-31) U/L ALT < 6 (0-31) U/L Alkaline Phosphatase 57 (39-117) U/L Albumin 4.0 (3.5-5.0) g/dL Urine 08/03/24 Range/Units 15:33 Urine Color Yellow Urine Appearance Cloudy Urine pH 5.5 (5.0-9.0) Ur Specific [place] 1.015 (1.005-1.025) Urine Protein 30 (1+) H (Neg-Trace) mg/dL Urine Glucose (UA) Negative (Negative) mg/dL Assessment and Plan Patient Active problem list reviewed?: Yes (1) Small cell carcinoma of lung Status: Acute Assessment and plan: 84-year-old lady, with a history of small-cell carcinoma of the lung. CT scan of the chest from 01/16/23 revealed: 3 x 4 cm right upper lobe mass suspicious for neoplasm. PET/CT scan or tissue sampling recommended. Emphysema. Small pulmonary nodules. Severe coronary artery calcification. 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 Dedicated abdominal aorta ultrasound recommended. PET SCAN from 01/23/23 revealed: 1. An intensely FDG avid right upper lobe mass is most likely malignant. 2. A right lower paratracheal lymph node is FDG avid and likely a metastasis. 3. Additional subcentimeter pulmonary nodules are present, several of these better visualized on the 01/07/[address] scan and all too small to be characterized on the FDG PET images. 4. No additional abnormalities suspicious for other metastatic or malignant lesions are noted. 5. 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 6. Diffuse vascular calcifications including dense coronary calcifications. PATHOLOGY from 03/18 revealed: POSITIVE FOR MALIGNANCY, CONSISTENT WITH SMALL CELL CARCINOMA. I explained to them that at this point it appeared she has limited stage disease. However, patient needs to have staging workup. Checked LDH: 161. I proceeded with an MRI of the brain, for initial staging. MRI of the brain from 04/04/23 revealed: Multiple enhancing lesions as follows: -3 mm subcortical lesion involving the left middle frontal gyrus (series 11, image 103 of 144) with associated mild FLAIR hyperintensity. -4 mm lesion involving the left parietal operculum (series 11, image 92) with associated minimal FLAIR hyperintensity -8 x 7 mm rim-enhancing lesion in the left parietal lobe (series 11, image 89) with associated restricted diffusion and FLAIR hyperintensity. -8 x 8 mm enhancing lesion with central focus of hypoenhancement in the right cerebellar hemisphere (series 11, image 52) without associated restricted diffusion and surrounding FLAIR hyperintensity. 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 Based upon NCCN guidelines and the above workup would recommend combined modality therapy with radiation along with systemic chemotherapy plus immunotherapy. Treatment regimen: carboplatin, etoposide and atezolizumab. For asymptomatic brain Mets from small cell lung carcinoma one can start chemotherapy and follow along. l got an opinion from radiation therapy at [facility]. Usually initial treatment is with systemic chemotherapy, with radiation to be started with the 2nd cycle. In general 4 - 6 cycles systemic therapy are recommended, every 21-28 days during concurrent RT. After that she would continue on maintenance Atezolizumab. She had a Port-A-Cath placed by IR on 04/05/23. Was started on systemic therapy on 04/15. She had cycle 2 on 05/06. Cycle 3 on 05/27/23. She tolerated it reasonably well. She has completed cycle 4 on 06/19. She received the radiation starting 05/[address] chest from July 22 revealed: Decrease in size of spiculated right upper lobe lung mass compared with most recent prior chest CT dated January 07, 2023, as above. MRI of the brain from 09/26 revealed: 1. Evidence of treatment response with resolution of previously noted enhancing intracranial metastases. No new intracranial metastatic disease. 2. Stable extra-axial susceptibility artifact along the left frontal convexity corresponding calcification on CT which may represent dural ossification or a densely calcified meningioma 3. Stable punctate focus of enhancement at the fundus of the right internal auditory canal which may represent a small schwannoma. Attention on follow-up imaging. CT chest from 10/20: 1. Slight decrease in size of right upper lobe spiculated lesion. No new lesions. No evidence of lymphadenopathy. 2. Gastric diverticulum. CT chest from 02/05/2024: Stable spiculated nodule in the right upper lobe measuring 2.1 x 1.3 cm. Stable 6 mm left upper lobe nodule. No new or enlarging pulmonary nodules. Follow-up imaging per oncologic protocol. She had urinary frequency. Daughter noted a little bit of confusion. Concern was UTI. However her urine came back negative. Brain MRI from 12/29: -No evidence of new or recurrent disease. -Stable enhancing focus in the right internal auditory canal. CT chest from 02/04: Stable spiculated nodule in the right upper lobe measuring 2.1 x 1.3 cm. Stable 6 mm left upper lobe nodule. No new or enlarging pulmonary nodules. Follow-up imaging per oncologic protocol. Overall she is holding stable. Has had right shoulder pain. X-ray of a right shoulder revealed: Degenerative changes at the glenohumeral joint and acromioclavicular I referred her to Orthopedics. Appointment was on 05/01. She was given cortisone shots and shoulders. Pain has resolved. MRI of the brain from 05/19/24 revealed: 1. No acute intracranial hemorrhage, acute infarction, mass effect, or edema. No definite evidence of new or recurrent metastatic disease. 2. A vague 3 mm focus of enhancement of the left medial cerebellum a detailed, has no correlating signal abnormality on any other sequence and is likely vascular in etiology. Attention on follow-up recommended. 3. Stable mild encephalomalacia in the right periventricular aranda radiata, and subtle foci of gliosis in the regions of previously identified metastatic disease. 4. Stable 2 mm focus of nodular enhancement in the distal right IAC, consistent with a tiny acoustic schwannoma. This is unchanged. She is receiving maintenance atezolizumab, cycle 32 on 07/21. She has been tolerating it very well. CT chest from 07/02/24: Stable to slightly decreased spiculated lesion right upper lobe. No lymphadenopathy. She has now been admitted with shortness of breath and generalized weakness. Chest x-ray revealed: No acute cardiopulmonary process seen. She has also been noted to have a UTI. She has COPD exacerbation. PLAN: She is being managed with updraft treatments antibiotics and steroids. Hopefully she will turn around. I would recommend continuing supportive care as you are doing. Thank you for the consult, I will follow along with you, CC: Sarah Mathews MD. - Time Spent With Patient Time Spent with Patient (in minutes): 30
[2024-08-04] MEDS: Enoxaparin Sodium 40 MG/0.4 ML SYRINGE SUBCUT (16:56)
[2024-08-04] MEDS: cefTRIAXone sodium 1 GM VIAL IVPUSH (20:14)
[2024-08-04] MEDS: Pravastatin Sodium 20 MG TABLET PO (20:19)
[2024-08-04] MEDS: Melatonin 3 MG TABLET 6 MG PO (20:28)
[2024-08-04] MEDS: Acetaminophen 325 MG TABLET 650 MG PO (20:29)
[2024-08-05 03:57] VITALS: BP 119/65; PULSE 82; RESP 18; TEMP 36.1; O2SAT 95
[2024-08-05] MEDS: Levothyroxine Sodium 125 MCG TABLET PO (05:50)
--- NOTE | 2024-08-05 07:00 | CA_ITS ---
Transthoracic Echocardiogram Patient (Last, First, Middle): Janine Felder, Gender: Female Date of : 1940 Age: 84 Procedure Date: 08/05/2024 Procedure Type: Transthoracic Echocardiogram Location: S3E Height: 162. cm Weight: 56.25 kg BSA: 1.59 m2 Heart Rate: 80 bpm BP: 110 / 59 mmHg Psych Coordinator: DIANE Referring MD: Xin Keene NP Rn Clinical Appeals: Shiraz Staton MD Symptoms: hypoxia,leg swelling Study Quality: Fair ECG Rhythm: Sinus Conclusions: - 1. Normal LV ejection fraction of 65-70% 2. Mildly dilated left atrium 3. Early mild calcific aortic stenosis 4. Severe mitral annular calcification with possible mild mitral stenosis 5. Normal RV systolic pressure 6. No pericardial effusion Findings Left Ventricle Normal left ventricular size, thickness, and systolic function. The visually estimated ejection fraction is between 65-70%. Spectral Doppler is indicative of an impaired relaxation filling pattern. E/E prime ratio is between 8 and 15 consistent with indeterminate filling pressures. Right Ventricle Normal right ventricular cavity size and systolic function. Atria The left atrium is mildly dilated. There is no evidence of interatrial shunt. The right atrium is normal in size. Aortic Valve The aortic valve was not well visualized. There is moderate calcification of the aortic valve. There is mild aortic valve stenosis. The peak aortic gradient is 12 mmHg.The mean gradient is 6 mmHg. The aortic valve area is 2.07 cm2. There is no aortic valve regurgitation. Mitral Valve There is mild anterior and severe posterior mitral leaflet thickening. There is severe mitral annular calcification. There is no mitral valve regurgitation. There is mild mitral valve stenosis. Pulmonic Valve The pulmonic valve was not well visualized. Tricuspid Valve Normal tricuspid valve structure. There is trace tricuspid valve regurgitation. The right ventricular systolic pressure is normal. The right ventricular systolic pressure is 24 mmHg. Normal right atrial pressure. There is no evidence of pulmonary hypertension. Great Vessels All visible segments of the aorta are normal in size. The pulmonary artery was not well visualized. There is no dilatation of the ascending aorta measuring 3.20 cm. Venous The inferior vena cava is normal in size and collapses greater than 50% with inspiration. Pericardium/Pleural There is no evidence of pericardial effusion. Prior Study Comparison No prior study available for comparison. Measurements 2D Linear Measurements IVSd: 0.90 0.6-0.9/0.6-1.0 cm LVIDd: 3.54 3.9-5.3/4.2-5.9 cm LVIDd Index: 2.23 2.4-3.2/2.2-3.1 cm/m2 LVIDs: 2.36 2.0-3.6 cm LVPWd: 0.98 0.7-1.1 cm LA Diam: 3.30 2.7-3.8/3.0-4.0 cm LAIDs Index: 2.08 1.5-2.3 cm/m2 LV Mass: 118.99 67-162/88-224 g LV Mass Index: 74.84 43-95/49-115 g/m2 LVOT Diam: 1.90 3.0+(-)1.3 cm 2D Systolic Function EF 4C: 64.70 >55% EF 2C: 65.60 >55% EF BiP: 66.30 >55% Mitral Valve MV VTI: 0.45 MV Pk Kenneth: 1.80 MV Mn Kenneth: 1.11 MV Pk Grad: 13.00 MV Mn Grad: 6.00 MV Pk E: 1.47 MV PK A: 1.62 MV Decel Time: 284.00 E/A: 0.90 E'Lateral: 6.85 E'Medial: 6.31 E/E' Med: 23.30 E/E' Lat: 21.50 PHT: 83.00 MVA PHT: 2.65 MVA Continuity: 1.56 Decel Yellow Medicine: 5.20 Aortic Valve AoV Pk Kenneth: 1.70 AoV Mn Kenneth: 1.11 AoV VTI: 0.34 AoV Pk Grad: 12.00 Aov Mn Grad: 6.00 CLARA Cont.VTI: 2.07 LVOT LVOT Pk Kenneth: 1.26 LVOT Mn Kenneth: 0.84 LVOT VTI: 0.25 LVOT Pk Grad: 6.00 LVOT Mn Grad: 3.00 LVOT Diam: 1.90 LVOT Area: 2.84 Diastolic Function MV Pk E: 1.47 MV Pk A: 1.62 E/A: 0.90 E'Medial: 6.31 E/E' Med: 23.30 E' Laterial: 6.85 E/E' Lat: 21.50 Right Ventricle TAPSE (mm): 16.30 TVS' Kenneth: 14.70 Tricuspid Valve TR Pk Kenneth: 2.27 TR Pk Grad: 21.00 RA Press: 3.00 RVSP: 24.00 Great Vessels Aorta Sinus of Valsalva: 3.10 2.0-3.5 cm Ao Asc: 3.20 2.1-3.4 cm Pulmonary Valve PV Pk Kenneth: 1.43 Peak PV Grad: 8.00 Updated in Other Vendor System with Status of Final Shiraz Staton MD electronically signed on 08/05/2024 2:02:58 PM with status of Final
[2024-08-05 08:03] VITALS: BP 110/59; PULSE 73; RESP 12; TEMP 37.1; O2SAT 96
[2024-08-05] MEDS: Albuterol/Iprat 2.5/0.5MG 3 ML AMPUL.NEB INHALE ×2 (08:09→11:59)
[2024-08-05 08:10] VITALS: PULSE 72; RESP 16; O2SAT 93
[2024-08-05] MEDS: Doxycycline Hyclate 100 MG in 0.9 % Sodium Chloride 250 ML 166.67 MG IV (08:15)
[2024-08-05] MEDS: methylPREDNISolone Sod Succ 40 MG/ML VIAL IVPUSH (08:15)
[2024-08-05] MEDS: 0.9 % Sodium Chloride Flush 3 ML SYRINGE IVFLUSH (08:16)
[2024-08-05] MEDS: Milk of Magnesia 30 ML ORAL.SUSP PO (08:23)
--- NOTE | 2024-08-05 11:03 | W.MHC.F2F ---
Service Date Service Date: 08/05/24 Encounter Date of encounter: 08/05/24 Reasons for Services Signs and symptoms assessed: COPD PNA UTI Reason for care home: CV/CP assess and/or care Reason for physical therapy: home safety and mobility Homebound: Leaving the home is medically contraindicated at this time without the asist of a device and/or another person due th the listed conditions above and below. Reason homebound: unsteady gait / fall risk and weakness related to hospital stay Certification: Based on the above findings, I certify that this patient is confined to the home and needs intermittent care home care, physical therapy and/or speech therapy, or continues to need occupational therapy. The patient is under my care, and I have initiated the establishment of the plan of care. The patient will be followed by a physician who will periodically review the plan of care. Time Spent With Patient Time: Total time managing care of this patient today ____ minutes.
--- NOTE | 2024-08-05 11:18 | PM.DS ---
DS: Providers Provider Date of Service: 08/05/24 Date of admission: 08/03/24 13:12 Date of discharge: 08/05/24 Primary care physician: Sarah Mathews MD Consults: 08/03/24 15:07 Consult to Hematology / Oncology Routine Consulting Provider: [facility] Oncology/Hematology Reason for consultation: copd exacerabtion, known to you DS: Diagnosis Discharge Diagnosis (1) Small cell carcinoma of lung: Status: Acute DS: Summary Hospital Course Hospital Course: History and physical as per admitting provider. 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 Wolff for cancer care) who comes with an increase in dyspnea and weakness x 2 days. When asked denies needing increased use of PRN 02, states she used maybe 1-2 times the last two days (2L via NC). Denies sputum production, hemoptysis, wheezing or pleuritic pain. States she has a primarily non-productive cough at baseline, confirms she still is smoking daily, around 6 cigarettes, stated she smoked 3 this am prior to arrival. Denies recent sick contacts. She herself was seen recently however at urgent care, also for URI symptoms, and was prescribed prednisone and z-eliel, which she states she completed on Saturday, the day of or before she describes is when her current symptoms arose. Denies any CP, palpitations, edema, pain or redness to lower extremities, N/V/D, fevers, or chills, and no recent travel. Last chemo dose cycle#32 completed on 07/21, was pending chemo tomorrow with Dr. Wolff. 84-year-old woman treated for acute on chronic respiratory failure secondary to COPD exacerbation and clinical pneumonia. Treated with oxygen, IV Solu-Medrol, scheduled DuoNebs, doxycycline and Rocephin. Patient already has oxygen at home and uses it as needed. She was noted to have E coli UTI and treated with ceftriaxone. Patient will be discharged home to complete antibiotic course as well as steroids. Hyperlipidemia. Continue statin Chronic anemia. No bleeding during hospitalization Hypertension. Continue hydrochlorothiazide Hypothyroidism. Continue levothyroxine Lung cancer. Currently undergoing chemotherapy Time Attestation Discharge Coordination Time (in mins): 40 Quality: Safe Use of Opioids Does Pt have an Active Cancer Diagnosis on the Problem List?: No Quality: Stroke Does the patient have a stroke diagnosis?: No Physical Exam Vital Signs: Vital Signs: Last Vital Signs Temp 98.8 F 08/05/24 08:03 Pulse 72 08/05/24 08:10 Resp 16 08/05/24 08:10 BP 110/59 L 08/05/24 08:03 Pulse Ox 96 08/05/24 08:03 O2 Del Method Nasal Cannula 08/05/24 08:03 O2 Flow Rate 1 08/05/24 08:03 BMI result Body Mass Index 21.3 Discharge Plan Discharge Anticipated Discharge Date/Time: 08/05/24 09:58 Patient Disposition: Home Health Service Discharge Diagnosis: COPD exacerbation Community-acquired pneumonia E coli UTI Referrals: Juan BENITES [Outside] - 1 Week ([facility]- A NURSE WILL CALL YOU TO RESUME SERVICES.) Sarah Mathews MD [Primary Care Provider] - 1 Week Discharge Medications: New albuterol sulfate 2.5 mg /3 mL (0.083 %) solution for nebulization 2.5 mg inhalation Q4H PRN (Reason: shortness of breath or wheezing) Qty: 180 0RF cefuroxime axetil 500 mg tablet 500 mg PO BID Qty: 6 0RF doxycycline hyclate 100 mg tablet 100 mg PO BID Qty: 6 0RF prednisone 10 mg tablet See Taper PO DIRECTED Qty: 30 0RF Taper: Prednisone 40 mg daily for 3 Days and 0 Hour 30 mg daily for 3 Days and 0 Hour 20 mg daily for 3 Days and 0 Hour 10 mg daily for 3 Days and 0 Hour Rx Instructions: see taper instructions Continued pravastatin 20 mg Tablet 20 mg PO BEDTIME gemfibrozil 600 mg tablet 600 mg PO BID alprazolam 0.25 mg Tablet 0.25 mg PO BEDTIME PRN (Reason: Anxiety) Qty: 30 0RF albuterol sulfate [Ventolin HFA] 90 mcg/actuation Hfa Aerosol Inhaler 2 inh INHALATION Q6H PRN (Reason: Shortness Of Breath Or Wheezing) levothyroxine 125 mcg tablet 125 mcg PO DAILY@0600 Discharge Orders: Discharge Order (Routine); Ordered 08/05/24 Ordered By: Xin Keene Diet: Advance to usual diet Activity on Discharge: As tolerated Stand Alone Forms: Patient Portal Discharge page Print Language: Syriac Care Plan Goals: Complete antibiotic course Health Concerns: COPD exacerbation Community-acquired pneumonia E coli UTI Plan of Treatment: Follow-up with primary care provider as needed Take all medications as prescribed Assessment: See discharge summary
--- NOTE | 2024-08-05 11:25 | PC.NURSE ---
Pt has echo ordered, residential gas heat technician requested oncology approval to administer contrast into chemo port. Pt is an existing patinet here for chemotherpy. Oncology was contacted and covering oncologist advised to use a peripheral location for the contrast. This RN offered to place a peripheral IV, residential gas heat technician denied.
--- NOTE | 2024-08-05 11:31 | MHC.CM.PN ---
DP: PT HAS BEEN MEDICALLY CLEARED FOR DC HOME WITH [facility]. [facility] UPDATED ON TODAY'S DC. DAUGHTER WILL TRANSPORT HOME.
[2024-08-05 12:02] VITALS: PULSE 72; RESP 16; O2SAT 93
[2024-08-05 12:52] LABS: B Type Natriuretic Peptide 647 pg/mL (<100)
== END 2024-08-05 14:27 | disposition home health service (06) | DRG 190 ==
LOC: HO.ED 13:02 → HO.EDOVER 13:21 → HO.S3 08-04 13:29
PROVIDERS: Physician Assistant Medical; Admitting Provider Nurse Practitioner Acute Care; Emergency Provider Emergency Medicine; PCP Student in an Organized Health Care Education/Training Program; Visit Provider Nurse Practitioner Acute Care
DX: J44.1 Chronic obstructive pulmonary disease with (acute) exacerbation (principal); J18.9 Pneumonia, unspecified organism; J96.21 Acute and chronic respiratory failure with hypoxia; C34.11 Malignant neoplasm of upper lobe, right bronchus or lung; C79.31 Secondary malignant neoplasm of brain; N39.0 Urinary tract infection, site not specified; J44.0 Chronic obstructive pulmonary disease with (acute) lower respiratory infection; B96.20 Unspecified Escherichia coli [E. coli] as the cause of diseases classified elsewhere; E78.5 Hyperlipidemia, unspecified; D63.0 Anemia in neoplastic disease; I10 Essential (primary) hypertension; E03.9 Hypothyroidism, unspecified; Z20.822 Contact with and (suspected) exposure to COVID-19; Z99.81 Dependence on supplemental oxygen; Z79.890 Hormone replacement therapy; Z79.899 Other long term (current) drug therapy
CPT/HCPCS: 0241U; 36415; 71045; 80053; 81001; 83735; 83880; 84484; 85025; 87086; 87088; 87186; 93005; 93306; 94640; 97161; 99221; 99285; J0696; J1650; J2919; P9047; Q9957

== ENCOUNTER → 2024-08-03 10:45 | Outpatient (BNV) | payer MEDICARE, MEDICAID, SELFPAY | PROVIDERS: Emergency Provider Emergency Medicine; PCP Student in an Organized Health Care Education/Training Program; Visit Provider Radiology Diagnostic Radiology | DX: R06.02 Shortness of breath (principal) | CPT/HCPCS: 71045 ==

== ENCOUNTER → 2024-08-03 10:45 | Outpatient (BNV) | payer MEDICARE, MEDICAID, SELFPAY | PROVIDERS: Emergency Provider Emergency Medicine; PCP Student in an Organized Health Care Education/Training Program; Visit Provider Internal Medicine Cardiovascular Disease | DX: R06.02 Shortness of breath (principal) | CPT/HCPCS: 93010 ==

== ENCOUNTER 2024-08-03 13:12 | Outpatient (BNV) | payer MEDICARE, MEDICAID, SELFPAY | END 2024-08-05 07:00 | PROVIDERS: Admitting Provider Nurse Practitioner Acute Care; Emergency Provider Emergency Medicine; PCP Student in an Organized Health Care Education/Training Program; Visit Provider Internal Medicine Cardiovascular Disease | DX: I35.0 Nonrheumatic aortic (valve) stenosis (principal); I35.8 Other nonrheumatic aortic valve disorders; I34.81 Nonrheumatic mitral (valve) annulus calcification; I34.2 Nonrheumatic mitral (valve) stenosis | CPT/HCPCS: 93306 ==

== ENCOUNTER → 2024-08-03 13:12 | Outpatient (BNV) | payer MEDICARE, MEDICAID, SELFPAY | PROVIDERS: Admitting Provider Nurse Practitioner Acute Care; Emergency Provider Emergency Medicine; PCP Student in an Organized Health Care Education/Training Program; Visit Provider Nurse Practitioner Acute Care | DX: C34.91 Malignant neoplasm of unspecified part of right bronchus or lung (principal); J44.1 Chronic obstructive pulmonary disease with (acute) exacerbation; J96.20 Acute and chronic respiratory failure, unspecified whether with hypoxia or hypercapnia; J18.9 Pneumonia, unspecified organism | CPT/HCPCS: 99223; 99232; 99239; 99499; G0180 ==

== ENCOUNTER → 2024-08-03 13:12 | Outpatient (BNV) | payer MEDICARE, MEDICAID, SELFPAY | PROVIDERS: Admitting Provider Nurse Practitioner Acute Care; Emergency Provider Emergency Medicine; PCP Student in an Organized Health Care Education/Training Program; Visit Provider Internal Medicine Medical Oncology | DX: C34.91 Malignant neoplasm of unspecified part of right bronchus or lung (principal); J44.9 Chronic obstructive pulmonary disease, unspecified | CPT/HCPCS: 99222 ==

== ENCOUNTER 2024-08-26 11:38 | Outpatient (REF) | payer MEDICARE, MEDICAID, SELFPAY ==
--- NOTE | ~2024-08-26 | XR_ITS ---
EXAMINATION: XR CHEST 2 VIEWS HISTORY: COPD COMPARISON: Comparison is made with the prior examination dated 08/03/2024. FINDINGS: PA and lateral views of the chest are submitted. A right-sided port is unchanged in position. There is scarring in the right upper lobe. The lungs are otherwise clear. There is no pleural effusion, pneumothorax, or pulmonary vascular congestion. The heart is normal in size. The aorta is tortuous. There is degenerative disc disease of the spine. XR/XR chest 2V IMPRESSION: No acute cardiopulmonary abnormality. Electronically signed by: Jean Marie Smith MD 08/28/2024 03:02 PM CARLOS
--- OUTSIDE RECORDS SUMMARY | 2024-08-26 14:09 | XMS_ITS | Encounter Summary ---
Author Organization [employer] Address [address] [facility] 7t [place] [address] Care Team Providers Care Risk Control Field Representative Name Role Phone Sarah Mathwes MD Primary Care Provider [phone] Reason for Visit * Reason Onset Date Comments Results 10/09/2023 Encounter Details Date Type Department Care Team ([facility] Contact Info) Description 10/09/2023 Telephone [facility] MED & PEDS [address] [place], [place] [phone] Sarah Mathews MD [address] [place], [place] [phone] Results Social History Tobacco Use Types Packs/Day [...] for ordered:liver panel, BMP, lipid panel from [facility] and printed to [facility] for medical records and for providerto [...] as needed. RN will forward message to [facility] to obtain lab results for provider. TC from pt daughter requesting call back regarding Results. Type of results: labs Date when done: 09/30/23 Facility: [facility] * Telephone Encounter - Melissa Kirby - 10/09/2023 12:35 PM EDT TC from pt daughter requesting call back regarding Results. Type of results: labs Date when done: 09/30/23 Facility: [facility] documented in this encounter Plan of Treatment Upcoming Encounters Date Type Department Care Team (Late st Contact Info) Description 09/28/2024 10:00 AM EDT Office Visit [facility] MED & PEDS [address] [place] [address] Sarah Mathews MD [address] [place] [address] documented as of this encounter Visit Diagnoses Not on filedocumented in this encounter Care Teams Risk Control Field Representative Relationship Specialty Start Date End Date Sarah Mathews MD [address] [place] [phone] PCP - General Family Medicine 04/15/12 Juan BENITES 06/15/24 documented as of this encounter
--- OUTSIDE RECORDS SUMMARY | 2024-08-26 14:09 | XMS_ITS | Encounter Summary ---
Author Organization [employer] Address [address] [facility] 7[address] [place] [address] Care Team Providers Care Plastics Technician Name Role Phone Sarah Mathews MD Primary Care Provider [phone] Reason for Visit * Reason Onset Date Comments FYI 07/20/2024 Encounter Details Date Type Department Care Team ([facility] st Contact Info) Description 07/20/2024 Telephone [facility] MED & PEDS [address] [place], [place] [phone] Sarah Mathews MD [address] [place] [address] FYI Social History Tobacco Use Types Packs/Day [...] - 07/20/2024 9:38 AM EST Tc from [facility] with [facility] calling to inform pt missed today visit next visit is 07/23/24. documented in this encounter Plan of Treatment Upcoming Encounters Date Type Department Care Team (Late st Contact Info) Description 09/28/2024 10:00 AM EDT Office Visit [facility] CHC MED & PEDS [address] [place] [address] Sarah Mathews MD [address] [place] [address] documented as of this encounter Visit Diagnoses Not on filedocumented in this encounter Additional Health Concerns Assessment Noted Time PHQ-9 Depression Total Score: 2 04/29/20 24 10:19 AM EST documented as of this encounter Care Teams Plastics Technician Relationship Specialty Start Date End Date Sarah Mathews MD [address] [place] [phone] PCP - General Family Medicine 04/15/12 [facility] 06/15/24 documented as of this encounter
--- OUTSIDE RECORDS SUMMARY | 2024-08-26 14:09 | XMS_ITS | Encounter Summary ---
Author Organization [employer] Address [address] [facility] 7t [place] [address] Care Team Providers Care Culturist Name Role Phone Sarah Mathews MD Primary Care Provider [phone] Encounter Details Date Type Department Care Team (Late st Contact Info) Description 08/03/2024 Orders Only [...] Upcoming Encounters Date Type Department Care Team ([facility] st Contact Info) Description 09/28/2024 10:00 AM EDT Office Visit [facility] CHC MED & PEDS [address] [place] [address] Sarah Mathews MD [address] [place] [address] documented as of this encounter Procedures Procedure Name Priority Date/Time Associated Diagnosis Comments HIGH SENSITIVITY TROPONIN I Routine 08/03/2024 11:52 AM EST SARS COV2/INFLUENZA A/B AND RSV RNA QL NAAT Routine 08/03/2024 11:52 AM EST CBC WITH AUTO DIFFERENTIAL Routine 08/03/2024 11:52 AM EST MAGNESIUM Routine 08/03/2024 11:52 AM EST COMPREHENSIVE METABOLIC PANEL Routine 08/03/2024 11:52 AM EST HOLD LT BLUE - POSSIBLE COAG Routine 08/03/2024 11:50 AM EST documented in this encounter Results * SARS-CoV-2 RNA, Influenza A/B, and RSV RNA, Ql NAAT (08/03/2024 11:52 AM EST) Influenza A PCR NEGATIVE Negative [facility] Influenza B PCR NEGATIVE Negative [facility] Resp Syncy Virus RNA Qual PCR NEGATIVE Negative [facility] SARS COV2 PCR NEGATIVE Negative [facility] Comment:All test results mus t be [...] use by authorized laboratories.Testing performed on the [employer] GeneXpert utilizingreal-time RT-PCR.All SARS CoV2 and positive influenza A/B results arereported to [facility]. 08/03/2024 11:5 2 AM EST 08/03/2024 12:00 PM EST Generic External Data Provider LAB MICROBIOLOGY - GENERAL ORDERABLES Final Result Performing Organization Address [facility] Co de Phone Number [facility] [address] [place] [phone] * High Sensitivity Troponin I (08/03/2024 11:52 AM EST) TROPONIN I HIGH SENSITIVITY 4.0 <3.5 - 17.0 ng/L [facility] Comment:The Tao high sens itivity Troponin-I results should beused in conjunction with other diagnostic information suchas ECG, clinical observations and information, and patientsymptoms to aid in the diagnosis of AK. 08/03/2024 11:5 2 AM EST 08/03/2024 11:58 AM EST Generic External Data Provider LAB BLOOD ORDERAB LES Final Result Performing Organization Address [facility] Co de Phone Number [facility] [address] [place] [phone] * Magnesium (08/03/2024 11:52 AM EST) Magnesium 2.0 1.6 - 2.6 mg/dL [facility] 08/03/2024 11:5 2 AM EST 08/03/2024 11:58 AM EST us Generic External Data Provider LAB BLOOD ORDERAB LES Final Result [facility] [address] [place] [address] [phone] * (ABNORMAL) Comprehensive Metabolic Panel (08/03/2024 11:52 AM EST) Sodium 143 135 - 145 mmol/L [facility] Potassium 3.9 3.3 - 5.1 mmol/L [facility] Chloride 107 96 - 108 mmol/L [facility] Carbon Dioxide 29 22 - 29 mmol/L [facility] Anion Gap 11(L) 12 - 20 [facility] Urea Nitrogen (BUN) 28(H) 9 - 16 mg/dL [facility] Creatinine, Serum 0.94 0.5 - 1.4 mg/dL [facility] Creatinine Clr Calc Pharmacy 39.1 [facility] Comment:Provided height and weight: 162.56 cm,56.245 kg.eGFR (calculated from the MDRD study equation) and eCrCl(calculated from the Cockcroft-Gault equation) are based ondifferent parameters and may not yield comparable results.If eCrCl result is absurd, please check patient'sheight/weight. Estimated Glomerular Filt Rate 57 [facility] Comment:Chronic Kidney Disea se: Estimated GFR < 60 mL/min/1.06o9[place]ow Kidney Disease: Estimated GFR < 15 mL/min/1.73m2 Glucose 95 60 - 115 mg/dL [facility] Calcium 8.8 8.4 - 10.2 mg/dL [facility] Bilirubin, Total 0.3 0.0 - 1.0 mg/dL [facility] Aspartate Amino Transferase 19 5 - 31 U/L [facility] Alanine Aminotransferase <6 0 - 31 U/L [facility] Total Protein 6.7 6.5 - 8.0 g/dL [facility] Albumin Level 3.7 3.5 - 5.0 g/dL [facility] Alkaline Phosphatase 67 39 - 117 U/L [facility] 08/03/2024 11:5 2 AM EST 08/03/2024 11:58 AM EST us Generic External Data Provider LAB BLOOD ORDERAB LES Final Result [facility] [address] [place] [address] [phone] * (ABNORMAL) CBC auto differential (08/03/2024 11:52 AM EST) White Blood Count 9.6 4.8 - 10.8 X10*3/uL [facility] Red Blood Count 3.46(L) 4.20 - 5.50 X10*6/uL [facility] Hemoglobin 11.6(L) 12.0 - 16.0 g/dl [facility] Hematocrit 37.6 37.0 - 47.0 % [facility] Mean Corpuscular Volume 108.7(H) 80.0 - 98.0 fL [facility] Mean Corpuscular Hemoglobin 33.5(H) 27.0 - 33.0 pg [facility] Mean Corpuscular HGB Conc 30.9(L) 31.0 - 35.0 g/dl [facility] Red Cell Distribution Width 15.3 11.0 - 16.0 % [facility] Platelet Count 194 160 - 400 X10*3/uL [facility] Mean Platelet Volume 9.7 9.4 - 12.3 fL [facility] Neutrophils Percent Auto 82.8(H) 45 - 73 % [facility] Imm Gran Pct Auto 2.2(H) 0.0 - 0.4 % [facility] Lymphocytes Percent Auto 6.8(L) 20 - 40 % [facility] Monocytes Percent Auto 7.3 2 - 11 % [facility] Eosinophils Percent Auto 0.5 0 - 4 % [facility] Basophils Percent Auto 0.4 0 - 2 % [facility] NRBC Pct Auto 0.0 0.0 - 0.2 /100WBC [facility] Neutrophils Absolute Auto 8.0 2.0 - 8.3 x10*3/uL [facility] Imm Gran Abs Auto 0.21(H) 0.00 - 0.03 X10*3/uL [facility] Lymphocytes Absolute Auto 0.7(L) 1.2 - 4.9 X10*3/uL [facility] Monocytes Absolute Auto 0.7 0.1 - 1.2 X10*3/uL [facility] Eosinophils Absolute Auto 0.1 0.0 - 0.4 X10*3/uL [facility] Basophils Absolute Auto 0.0 0.0 - 0.2 X10*3/uL [facility] NRBC Abs Auto 0.000 0.0 - 0.012 X10*3/uL [facility] 08/03/2024 11:5 2 AM EST 08/03/2024 11:58 AM EST us Generic External Data Provider LAB BLOOD ORDERAB LES Final Result Performing Organization Address [facility]/ZIP Co de Phone Number [facility] [address] [place] [phone] * HOLD LT BLUE - POSSIBLE COAG (08/03/2024 11:50 AM EST) Hold Lt Blue - Possible Coag SEE NOTE [facility] Comment:Specimen will be hel d untested for 4 hours. Call Hematologyif testing is desired. 08/03/2024 11:5 0 AM EST 08/03/2024 12:02 PM EST us Generic External Data Provider LAB BLOOD ORDERAB LES Final Result Performing Organization Address [facility] Co de Phone Number [facility] [address] [place] [phone] documented in this encounter Visit Diagnoses Not on filedocumented in this encounter Additional Health Concerns Assessment Noted Time PHQ-9 Depression Total Score: 2 04/29/20 24 10:19 AM EST documented as of this encounter Care Teams Culturist Relationship Specialty Start Date End Date Sarah Mathews MD [address] [place] [address] PCP - General Family Medicine 04/15/12 Juan BENITES 06/15/24 documented as of this encounter
--- OUTSIDE RECORDS SUMMARY | 2024-08-26 14:09 | XMS_ITS | Encounter Summary ---
Author Organization [employer] Address [address] [facility] [address]t [place] [address] Care Team Providers Care Typesetter Apprentice Name Role Phone Sarah Mathews MD Primary Care Provider [phone] Reason for Visit * Reason Onset Date Comments Nurse Triage 07/01/2024 Encounter Details Date Type Department Care Team ([facility] st Contact Info) Description 07/01/2024 Telephone [facility] [address] [place] [address] Sarah Mathews MD [address] [place], [place] [phone] Nurse Triage Social History Tobacco Use Types [...] speak for Pt. Pt was admitted to [facility] 06/11/24for dx of copd exacerbation and covid. Pt was discharged 06/13/24. Pt has been having low blood pressure even while in the hospital. Note, Pt has been undergoing chemotherapy prior to ED visit. Pt was seen by manager cafe yesterday and had a BP of 84/48. Today [facility] visit showed BP of 90/60 and lastweek running in the 102/60 range. Pt is taking hydroCHLOROthiazide 25mg daily every morning. Daughter reports no verbalized symtoms noted but some SOB at rest is noted but, not unusual. Daughter reports adequate liquid intake but, encouraged to increase liquids to 64oz daily ( 6-8 glasses or bottles of water). Daughter agrees with this advice and disposition. ASK apt in [facility] today at 240pm. Insurance is verified as [...] Description 09/28/2024 10:00 AM EDT Office Visit [facility] MED & PEDS [address] [place] [address] Sarah Mathews MD [address] [place] [address] documented as of this encounter Visit Diagnoses Not on filedocumented in this encounter Additional Health Concerns Assessment Noted Time PHQ-9 Depression Total Score: 2 04/29/20 24 10:19 AM EST documented as of this encounter Care Teams Typesetter Apprentice Relationship Specialty Start Date End Date Sarah Mathews MD [address] [place] [phone] PCP - General Family Medicine 04/15/12 Juan BENITES 06/15/24 documented as of this encounter
--- OUTSIDE RECORDS SUMMARY | 2024-08-26 14:09 | XMS_ITS | Encounter Summary ---
Author Organization [employer] Address [address] [facility] 7t [place] [address] Care Team Providers Care Hand Tool Filer Name Role Phone Sarah Mathews MD Primary Care Provider [phone] Reason for Referral * Imaging (Routine) - Authorized Specialty Diagnoses / Procedures Referred By Contac t Referred To Contact Cardiology Diagnoses Edema leg Procedures Transthoracic Echo (TTE) Complete Sarah Mathews MD [address] [place] [address] Phone: tel: fax: [address] Phone: tel: fax: Referral ID Status Reason Start Date Expiration Date Visits Requested Visits Authorized [id number] Authorized Perform Procedure 07/29/2024 07/29/2025 1 1 Encounter Details Date Type Department Care Team (Late st Contact Info) Description 07/29/2024 10:45 AM EST Office Visit [facility] MED & PEDS [address] [place] [address] Sarah Mathews MD [address] [place] [address] Edema leg (Primary Dx); Primary hypertension; Chronic [...] Upcoming Encounters Date Type Department Care Team ([facility] st Contact Info) Description 09/28/2024 10:00 AM EDT Office Visit [facility] MED & PEDS [address] [place] [address] Sarah Mathews MD [address] [place] [address] Scheduled Orders Name Type Priority Associated Diagnoses Order Schedule Transthoracic Echo (TTE) Complete Echocardiography Routine Edema leg Expected: 07/29/2024 (Approximate), Expires: 07/29/2026 documented as of this encounter Visit Diagnoses Diagnosis Edema leg- Primary Edema Primary hypertension Unspecified essential hypertension Chronic obstructive pulmonary disease, unspecified COPD type (CMS/HCC) documented in this encounter Additional Health Concerns Assessment Noted Time PHQ-9 Depression Total Score: 2 04/29/20 24 10:19 AM EST documented as of this encounter Care Teams Hand Tool Filer Relationship Specialty Start Date End Date Sarah Mathews MD [address] [place] [phone] PCP - General Family Medicine 04/15/12 Juan BENITES 06/15/24 documented as of this encounter
--- OUTSIDE RECORDS SUMMARY | 2024-08-26 14:09 | XMS_ITS | Encounter Summary ---
Author Organization [employer] Address [address] [facility] [address] [place] [address] Care Team Providers Care Retail Specialist Name Role Phone Sarah Mathews MD Primary Care Provider Reason for Referral * Consultation (Urgent) - Authorized Specialty Diagnoses / Procedures Referred By Contjenni t Referred To Contact Cardiology Diagnoses Edema leg Sarah Mathews MD [address] [place] [address] Phone: tel: fax: Shiraz Staton MD [address] [place] [phone] Phone: tel: fax: Referral ID Status Reason Start Date Expiration Date Visits Requested Visits Authorized [id number] Authorized Specialty Services Required 08/12/2024 08/12/2025 1 1 Encounter Details Date Type Department Care Team (Late st Contact Info) Description 08/12/2024 Orders Only [facility] MED & PEDS [address] [place], [place] [phone] Sarah Mathews MD [address] [place], [place] [phone] Edema leg (Primary Dx) Social History Tobacco Use Types [...] Upcoming Encounters Date Type Department Care Team ([facility] st Contact Info) Description 09/28/2024 10:00 AM EDT Office Visit [facility] MED & PEDS [address] [place] [address] Sarah Mathews MD [address] [place] [address] Scheduled Referrals Name Type Priority Associated Diagnoses Order Schedule Referral to Cardiology Outpatient Referral Urgent Edema leg Expected: 08/12/2024 (Approximate), Expires: 08/12/2025 documented as of this encounter Visit Diagnoses Diagnosis Edema leg- Primary Edema documented in this encounter Additional Health Concerns Assessment Noted Time PHQ-9 Depression Total Score: 2 04/29/20 10:19 AM EST documented as of this encounter Care Teams Retail Specialist Relationship Specialty Start Date End Date Sarah Mathews MD [address] [place], [place] [address] [place] [address] PCP - General Family Medicine 04/15/12 Juan BENITES 06/15/24 documented as of this encounter
--- OUTSIDE RECORDS SUMMARY | 2024-08-26 14:09 | XMS_ITS | Encounter Summary ---
Author Organization [employer] Address [address] [facility] [address] [place] [address] Care Team Providers Care Mapping Analyst Name Role Phone Sarah Mathews MD Primary Care Provider [phone] Reason for Visit * Reason Onset Date Comments Chart Prep 08/25/2024 Encounter Details Date Type Department Care Team ([facility] st Contact Info) Description 08/25/2024 Telephone C [facility] [address] [place], [place] [phone] Sarah Mathews MD [address] [place] [address] Chart Prep Social History Tobacco Use Types Packs/Day Years [...] encounter Miscellaneous Notes * Telephone Encounter - Awilda Montero [place] - 08/25/2024 2:21 PM EST Chart Prep Labs: done Images: done Vaccines due: yes Referrals: pending appt Screenings: none Overdue care gaps: none documented in this encounter Plan of Treatment Upcoming Encounters Date Type Department Care Team (Late st Contact Info) Description 09/28/2024 10:00 AM EDT Office Visit [facility] [address] [place] [address] Sarah Mathews MD [address] [place] [address] documented as of this encounter Visit Diagnoses Not on filedocumented in this encounter Additional Health Concerns Assessment Noted Time PHQ-9 Depression Total Score: 2 04/29/20 24 10:19 AM EST documented as of this encounter Care Teams Mapping Analyst Relationship Specialty Start Date End Date Sarah Mathews MD [address] [place] [id number] PCP - General Family Medicine 04/15/12 Juan BENITES 06/15/24 documented as of this encounter
--- OUTSIDE RECORDS SUMMARY | 2024-08-26 14:09 | XMS_ITS | Encounter Summary ---
Author Organization [employer] Address [address] [facility] [address] [place] [address] Care Team Providers Care Assembler Corncob Pipes Name Role Phone Sarah Mathews MD Primary Care Provider [phone] Reason for Visit * Reason Comments Cough fu Encounter Details Date Type Department Care Team ([facility] Contact Info) Description 08/26/2024 10:45 AM EST Office Visit [facility] [address] [place], [place] [phone] Sarah Mathews MD [address] [place], [place] [phone] Chronic obstructive pulmonary disease, unspecified COPD type (CMS/HCC) (Primary Dx) Social History Tobacco Use Types [...] Sign Reading Time Taken Comments Blood Pressure 109/63 08/26/2024 10:55 AM EST Pulse 78 08/26/2024 10:55 AM EST Temperature 36.6 ??C (97.9 ??F) 08/26/2024 10:[address] Respiratory Rate 22 08/26/2024 10:55 AM EST Oxygen Saturation - - Inhaled Oxygen Concentration - - Weight 54.4 kg (120 lb) 08/26/2024 10:55 AM EST Height 162.6 cm (5' 4 ) 08/26/2024 10:55 AM EST Body Mass Index 20.6 08/26/2024 10:55 AM EST documented in this encounter Progress Notes * Sarah Mathews MD - 08/26/2024 10:45 AM EST Subjective Patient ID: Janine Felder is a 84 y.o. female who presents for Cough (fu). Cough This is a recurrent problem. The current episode started in the past 7 days. The problem has been unchanged. The cough is Productive of sputum. Pertinent negatives include no chest pain, chills, ear congestion, fever, headaches, hemoptysis, myalgias, nasal congestion, postnasal drip, rash, rhinorrhea, shortness of breath, sweats, weight loss or wheezing. Review of Systems Constitutional: Negative. Negative for chills, fever and weight loss. HENT: Negative for postnasal drip and rhinorrhea. Respiratory: Positive for cough. Negative for hemoptysis, shortness of breath and wheezing. Cardiovascular: Negative for chest pain and palpitations. Gastrointestinal: Negative. Genitourinary: Negative. Musculoskeletal: Negative for myalgias and neck pain. Skin: Negative for rash. Neurological: Negative for headaches. Objective Physical Exam Constitutional: Appearance: Normal appearance. Cardiovascular: Rate and Rhythm: Normal rate and regular rhythm. Pulses: Normal pulses. Heart sounds: Normal heart sounds. Pulmonary: Effort: Pulmonary effort is normal. Breath sounds: Wheezing present. Abdominal: General: Abdomen is flat. Neurological: Mental Status: She is alert. Assessment/Plan Diagnoses and all orders for this visit: Chronic obstructive pulmonary disease, unspecified COPD type (CMS/HCC) Comments: D/C salmetrol Started on Breo daily Advised mucinex as need.Cont Oxygen.Advised steam inhaltion Orders: - XR Chest 2 Views; Future Other orders - Dextromethorphan-guaiFENesin (Mucinex DM) 30-600 MG tablet sustained-release 12 hour; Use 1 tab TID - Fluticasone Furoate-Vilanterol (Breo Ellipta) 100-25 MCG/ACT aerosol powder ; Inhale 100 mg Once per day. documented in this encounter Plan of Treatment Upcoming Encounters Date Type Department Care Team ([facility] Contact Info) Description 09/28/2024 10:00 AM EDT Office Visit [facility] [address] [place] [address] Sarah Mathews MD [address] [place] [address] Scheduled Orders Name Type Priority Associated Diagnoses Orde r Schedule XR Chest 2 Views Imaging Routine Chronic obstructive pulmonary disease, unspecified COPD type (CMS/HCC) Expected: 08/26/2024, Expires: 08/26/2025 documented as of this encounter Visit Diagnoses Diagnosis Chronic obstructive pulmonary disease, unspecified COPD type (CMS/HCC)- Primary documented in this encounter Additional Health Concerns Assessment Noted Time PHQ-9 Depression Total Score: 2 04/29/20 24 10:19 AM EST documented as of this encounter Care Teams Assembler Corncob Pipes Relationship Specialty Start Date End Date Sarah Mathews MD [address] [place] [address] [place] [address] PCP - General Family Medicine 04/15/12 Juan BENITES 06/15/24 documented as of this encounter
--- OUTSIDE RECORDS SUMMARY | 2024-08-26 14:09 | XMS_ITS | Clinical Summary ---
Author Organization [employer] Address [address] [facility] [address] [place] [address] Care Team Providers Care Frit Mixer Name Role Phone Sarah Mathews MD Primary Care Provider [phone] Allergies No known active allergies Medications ALPRAZolam (Xanax) 0.25 MG tablet Take 0.25 mg by mouth if needed in the morning and at bedtime for anxiety. 05/11/20 23 Active Multiple Vitamins-Minerals (CENTRUM SILVER 50+WOMEN [...] times daily. 90 tablet 3 04/29/20 24 2024 Active albuterol (ProAir HFA) 108 (90 Base) MCG/ACT inhaler Inhale 2 puffs every 4 (four) hours if needed for wheezing. 18 g 3 04/29/20 24 Active Blood Pressure kit 1 Units Once per day. 1 kit 07/01/19 25 Active furosemide (Lasix) 20 MG tablet Take 0.5 tablets (10 mg) by mouth Once per day. 15 tablet 11 08/02/19 25 2025 Active albuterol (2.5 MG/3ML) 0.083% nebulizer solution INHALE 1 VIAL EVERY 4 HOURS NEEDED FOR SHORTNESS OF BREATH 08/05/19 25 Active Spacer/Aero-Holdi ng Chambers device Use spacer with albuterol inhaler 1 Device 1 08/13/19 Active Dextromethorphan- guaiFENesin (Mucinex DM) 30-600 MG tablet sustained-release 12 hour Use 1 tab TID 28 tablet 08/27/19 25 Active Fluticasone Furoate-Vilantero l (Breo Ellipta) 100-25 MCG/ACT aerosol powder Inhale 100 mg Once per day. 28 each 3 08/27/19 25 Active ondansetron ODT (Zofran-ODT) 8 MG disintegrating tablet DISSOLVE 1 TABLET ON THE TONGUE EVERY 8 HOURS 04/09/202024 Discontinued(M ed list cleanup (will not trigger notification to Pharmacy)) cetirizine (ZyrTEC) 10 MG tabletIndications :Seasonal Allergic Rhinitis Take 1 tablet (10 mg) by mouth at bedtime. 30 tablet 2 04/29/20 24 2024 Discontinued(M ed list cleanup (will not trigger notification to Pharmacy)) predniSONE (Deltasone) 20 MG tabletIndications :COPD exacerbation (CMS/HCC) Take 2 tablets (40 mg) by mouth Once per day for 5 days. 10 tablet 07/28/19 25 2024 azithromycin (Zithromax Z-Bautista) 250 MG tabletIndications :COPD exacerbation (CMS/HCC) Take 2 tablets once on day 1, then 1 tablet once a day for 4 days. 6 tablet 07/28/19 25 2024 Discontinued furosemide (Lasix) 20 MG tablet Take 0.5 tablets (10 mg) by mouth Once per day. 15 tablet 11 07/29/19 25 2024 Discontinued predniSONE (Deltasone) 10 MG tablet 40 mg by mouth daily for 3 days 30 mg by mouth daily for 3 days 20 mg by mouth daily for 3 days 10 mg by mouth daily for 3 days 08/05/19 25 2024 Salmeterol Xinafoate (Serevent Diskus) 50 MCG/ACT aerosol powderIndications :Chronic obstructive pulmonary disease, unspecified COPD type (CMS/HCC) Inhale 1 Act (50 mcg) 2 times daily. 60 each 11 08/13/19 25 2024 Discontinued Active Problems Problem Noted Date Diagnosed [...] Encounters Date Type Department Care Team Description 08/26/2024 10:45 AM EST Office Visit [facility] [address] [place] [address] Sarah Mathews MD Chronic obstructive pulmonary disease, unspecified COPD type (CMS/HCC) (Primary Dx) 08/26/2024 Travel 08/25/2024 Telephone [facility] [address] [place] [address] Sarah Mathews MD Chart Prep 08/13/2024 10:30 AM EST Office Visit [facility] [address] [place] [address] Melanie Marlow MD Smoker (Primary Dx); Chronic obstructive pulmonary disease, unspecified COPD type (CMS/HCC); Hypoxemia; Atherosclerotic cardiovascular disease 08/13/2024 Travel 08/13/2024 Telephone [facility] [address] [place] [phone] Melanie Marlow MD 08/12/2024 Telephone [facility] [address] [place] [phone] Sarah Mathews MD ECHO ORDER 08/12/2024 Orders Only [facility] [address] [place] [address] Sarah Mathews MD Edema leg (Primary Dx) 08/06/2024 Telephone [facility] [address] [place] [phone] Bienvenido Canela MD 08/05/2024 Patient Outreach [facility] [address] [place] [address] Sarah Mathews MD Transition Of Care (Tcm) (HDF- scheduled ) 08/05/2024 Telephone [facility] MEDICINE [address] [place] [phone] Sarah Mathews MD Hospital Follow-up 08/03/2024 Orders Only GENERIC EXTERNAL DATA DEPARTMENT Provider, Generic External Data 07/29/2024 10:45 AM EST Office Visit [facility] [address] [place] [address] Sarah Mathews MD Edema leg (Primary Dx); Primary hypertension; Chronic obstructive pulmonary disease, unspecified COPD type (CMS/HCC) 07/29/2024 Orders Only [facility] [address] [place] [address] Sarah Mathews MD 07/29/2024 Telephone [facility] [address] [place] [address] Sarah Mathews MD Medication Question 07/29/2024 Travel 07/28/2024 4:00 PM EST Office Visit [facility] [address] [address] Sue Hooper MD COPD exacerbation (CMS/HCC) (Primary Dx); Cough, unspecified type 07/28/2024 Telephone [facility] [address] [place] [address] Sarah Mathews MD Nurse Triage 07/22/2024 Patient Outreach [facility] [address] [place] [address] Sarah Mathews MD Pre-visit Planning (SDOH negative, Tobacco screening negative. ) 07/20/2024 Telephone [facility] [address] [place] [address] Sarah Mathews MD FYI 07/08/2024 2:00 PM EST Clinical Support [facility] [address] [place] [address] Jose David Huff, FERNANDA Idiopathic hypotension 07/08/2024 Travel 07/01/2024 2:40 PM EST Office Visit [facility] [address] [place] [address] Sandra Francois MD Idiopathic hypotension (Primary Dx); Cough, unspecified type 07/01/2024 Travel 07/01/2024 Telephone [facility] [address] [place] [address] Sarah Mathews MD Nurse Triage 06/16/2024 Telephone [facility] [address] [place], [place] [phone] Sarah Mathews MD I 06/11/2024 Orders Only GENERIC EXTERNAL DATA DEPARTMENT Provider, Generic External Data from Last 3 Months Immunizations Name Administration [...] your housing situation today? I have urmila makenzie 04/10/[address] you li [...] 22 08/26/2024 10:55 AM EST Oxygen Saturation 97% 08/13/2024 10:24 AM EST Inhaled Oxygen Concentration - - Weight 54.4 kg (120 lb) 08/26/2024 10:55 AM EST Height 162.6 cm (5' 4 ) 08/26/2024 10:55 AM EST Body Mass Index 20.6 08/26/2024 10:55 AM EST Plan of Treatment Upcoming Encounters Date Type Department Care Team (Late st Contact Info) Description 09/28/2024 10:00 AM EDT Office Visit [facility] [address] [place] [address] Sarah Mathews MD [address] [place] [address] Health Maintenance Due Date Last Done Comments [...] AUTO DIFFERENTIAL Routine 08/03/2024 11:52 AM EST SARS COV2/INFLUENZA A/B AND RSV RNA QL NAAT Routine 08/03/2024 11:52 AM EST HOLD LT [...] 8:44 AM EST HEPATIC FUNCTION PANEL Routine 8:44 AM EST LACTIC ACID Routine 06/11/2024 8:44 AM EST PROTHROMBIN TIME-INR Routine 06/11/2024 8:44 AM EST CBC WITH AUTO DIFFERENTIAL Routine 06/11/2024 8:44 AM EST SARS COV2/INFLUENZA A/B AND RSV RNA QL NAAT Routine 06/11/2024 8:44 AM EST XR CHEST 1 VIEW Routine 06/11/2024 8:22 AM EST LIPID PANEL, STANDARD Routine 05/09/2024 8:09 AM EST Primary hypertension Hypothyroidism, unspecified type from Last 3 Months or Most Recently Relevant to Health Maintenance Results * High Sensitivity Troponin I (08/03/2024 11:52 AM EST) TROPONIN I HIGH SENSITIVITY 4.0 <3.5 - 17.0 ng/L [facility] Comment:The Chávez high sens itivity Troponin-I results should beused in conjunction with other diagnostic information suchas ECG, clinical observations and information, and patientsymptoms to aid in the diagnosis of MS. 08/03/2024 11:5 2 AM EST 08/03/2024 11:58 AM EST us Generic External Data Provider LAB BLOOD ORDERAB LES Final Result [facility] [address] [place] [phone] * SARS-CoV-2 RNA, Influenza A/B, and RSV RNA, Ql NAAT (08/03/2024 11:52 AM EST) Only the most recent of2 resultswithin the time period is included. Pathologist [facility] Influenza A PCR NEGATIVE Negative [facility] Influenza B PCR NEGATIVE Negative [facility] Resp Syncy Virus RNA Qual PCR NEGATIVE Negative [facility] SARS COV2 PCR NEGATIVE Negative [facility] Comment:All test results mus [...] use by authorized laboratories.Testing performed on the [employer] GeneXpert utilizingreal-time RT-PCR.All SARS CoV2 and positive influenza A/B results arereported to [facility]. 08/03/2024 11:5 2 AM EST 08/03/2024 12:00 PM EST us Generic External Data Provider LAB MICROBIOLOGY - GENERAL ORDERABLES Final Result [facility] [address] [place] [phone] * (ABNORMAL) CBC auto differential (08/03/2024 11:52 AM EST) Only the most recent of2 resultswithin the time period is included. Pathologist [facility] White Blood Count 9.6 4.8 - 10.8 X10*3/uL [facility] Red Blood Count 3.46(L) 4.20 - 5.50 X10*6/uL [facility] Hemoglobin 11.6(L) 12.0 - 16.0 g/dl [facility] Hematocrit 37.6 37.0 - 47.0 % [facility] Mean Corpuscular Volume 108.7(H) 80.0 - 98.0 fL [facility] Mean Corpuscular Hemoglobin 33.5(H) 27.0 - 33.0 pg [facility] Mean Corpuscular HGB Conc 30.9(L) 31.0 - 35.0 g/dl [facility] Red Cell Distribution Width 15.3 11.0 - 16.0 % [facility] Platelet Count 194 160 - 400 X10*3/uL [facility] Mean Platelet Volume 9.7 9.4 - 12.3 fL [facility] Neutrophils Percent Auto 82.8(H) 45 - 73 % [facility] Imm Gran Pct Auto 2.2(H) 0.0 - 0.4 % [facility] Lymphocytes Percent Auto 6.8(L) 20 - 40 % [facility] Monocytes Percent Auto 7.3 2 - 11 % [facility] Eosinophils Percent Auto 0.5 0 - 4 % [facility] Basophils Percent Auto 0.4 0 - 2 % [facility] NRBC Pct Auto 0.0 0.0 - 0.2 /100WBC [facility] Neutrophils Absolute Auto 8.0 2.0 - 8.3 x10*3/uL [facility] Imm Gran Abs Auto 0.21(H) 0.00 - 0.03 X10*3/uL [facility] Lymphocytes Absolute Auto 0.7(L) 1.2 - 4.9 X10*3/uL [facility] Monocytes Absolute Auto 0.7 0.1 - 1.2 X10*3/uL [facility] Eosinophils Absolute Auto 0.1 0.0 - 0.4 X10*3/uL [facility] Basophils Absolute Auto 0.0 0.0 - 0.2 X10*3/uL [facility] NRBC Abs Auto 0.000 0.0 - 0.012 X10*3/uL [facility] 08/03/2024 11:5 2 AM EST 08/03/2024 11:58 AM EST us Generic External Data Provider LAB BLOOD ORDERAB LES Final Result Performing Organization Address City/[facility]/ZIP Co de Phone Number [facility] [address] [place] [phone] * Magnesium (08/03/2024 11:52 AM EST) Magnesium 2.0 1.6 - 2.6 mg/dL [facility] 08/03/2024 11:5 2 AM EST 08/03/2024 11:58 AM EST Generic External Data Provider LAB BLOOD ORDERAB LES Final Result Performing Organization Address [facility] Co de Phone Number [facility] [address] [place] [phone] * (ABNORMAL) Comprehensive Metabolic Panel (08/03/2024 11:52 AM EST) Pathologist [facility] Sodium 143 135 - 145 mmol/L [facility] Potassium 3.9 3.3 - 5.1 mmol/L [facility] Chloride 107 96 - 108 mmol/L [facility] Carbon Dioxide 29 22 - 29 mmol/L [facility] Anion Gap 11(L) 12 - 20 [facility] Urea Nitrogen (BUN) 28(H) 9 - 16 mg/dL [facility] Creatinine, Serum 0.94 0.5 - 1.4 mg/dL [facility] Creatinine Clr Calc Pharmacy 39.1 [facility] Comment:Provided height and weight: 162.56 cm,56.245 kg.eGFR (calculated from the MDRD study equation) and eCrCl(calculated from the Cockcroft-Gault equation) are based ondifferent parameters and may not yield comparable results.If eCrCl result is absurd, please check patient'sheight/weight. Estimated Glomerular Filt Rate 57 [facility] Comment:Chronic Kidney Disea se: Estimated GFR < 60 mL/min/1.60p0Rqwgyr Kidney Disease: Estimated GFR < 15 mL/min/1.73m2 Glucose 95 60 - 115 mg/dL [facility] Calcium 8.8 8.4 - 10.2 mg/dL [facility] Bilirubin, Total 0.3 0.0 - 1.0 mg/dL [facility] Aspartate Amino Transferase 19 5 - 31 U/L [facility] Alanine Aminotransferase <6 0 - 31 U/L [facility] Total Protein 6.7 6.5 - 8.0 g/dL [facility] Albumin Level 3.7 3.5 - 5.0 g/dL [facility] Alkaline Phosphatase 67 39 - 117 U/L [facility] 08/03/2024 11:5 2 AM EST 08/03/2024 11:58 AM EST Generic External Data Provider LAB BLOOD ORDERAB LES Final Result Performing Organization Address [facility] Co de Phone Number [facility] [address] [place] [phone] [phone] * HOLD LT BLUE - POSSIBLE COAG (08/03/2024 11:50 AM EST) Hold Lt Blue - Possible Coag SEE NOTE [facility] Comment:Specimen will be hel d untested for 4 hours. Call Hematologyif testing is desired. 08/03/2024 11:5 0 AM EST 08/03/2024 12:02 PM EST us Generic External Data Provider LAB BLOOD ORDERAB LES Final Result Performing Organization Address City/[facility] Co de Phone Number [facility] [address] [place] [phone] * XR Chest 1 View (08/03/2024 11:00 AM EST) Only the most recent of2 resultswithin the time period is included. Anatomical Region Laterality Modality Chest Radiographic Preeti ging 08/03/2024 11:0 0 AM EST Narrative 08/03/2024 11:26 AM EST ? [facility] [place] [facility] ?[address] ?[place] [address] ?XRay Report ? Signed ? Patient: Emerita,Janine ?MR#: [id number] ?? 34 ? : 1940 ?Acct:[id number] ? Age/Sex: 84 / F ?ADM Date: 08/03/24 ? Loc: HO.ED ? Attending Dr: ? Ordering Physician: Mery Reinoso ?? Date of Service: 08/03/24 ?? Procedure(s): XR chest 1V ?? Accession Number(s): [id number] ? cc: Mery Reinoso; Sarah Mathews MD [...] DD/ 1100 ? TD/TT: 08/03/24 1110 ? Pharmaceutical Detailer: MSM ? Procedure Note Umm Giraldo - 08/03/[address] [address] XRay Report Signed Patient: Vanesa Felder#: [id number] [birth year] : 2Acct:[id number] Age/Sex: 84 / FADM Date: 08/03/24 Loc: HO.ED Attending Dr: Ordering Physician: Mery Reinoso Date of Service: 08/03/24 Procedure(s): XR chest 1V Accession Number(s): [id number] cc: Mery Reinoso; Sarah Mathews MD EXAMINATION: [...] 08/03/24 1124 DD/ 1100 TD/TT: 08/03/24 1110 Pharmaceutical Detailer: SAMMY [facility] External Provider IMG XR PROCEDURES Final Result * XR Chest 2 Views (07/28/2024 2:20 PM EST) Anatomical Region Laterality Modality Chest Radiographic Preeti ging 07/28/2024 2:20 PM EST Narrative 07/28/2024 3:08 PM EST ?[facility] ?[address] ?[place] [address] ?XRay Report ? Signed ? Patient: Janine Felder ?MR#: [id number] ?? 34 ? : 1940 ?Acct:[id number] ? Age/Sex: 84 / F ?ADM Date: 07/28/24 ? Loc: HO.HHCX ? Attending Dr: Sue Hooper MD ? Ordering Physician: Sue Hooper MD ?? Date of Service: 07/28/24 ?? Procedure(s): XR chest 2V ?? Accession Number(s): [id number] ? cc: Sue Hooper MD ? EXAMINATION: [...] DD/ 1420 ? TD/TT: 07/28/24 1431 ? Pharmaceutical Detailer: ? Procedure Note Enzo, Image - 07/28/[address] [address] XRay Report Signed Patient: Vanesa Felder#: [id number] [birth year] : 1940cct:[id number] Age/Sex: 84 / FADM Date: 07/28/24 Loc: HO.HHCX Attending Dr: Sue Hooper MD Ordering Physician: Sue Hooper MD Date of Service: 07/28/24 Procedure(s): XR chest 2V Accession Number(s): [id number] cc: Sue Hooper MD EXAMINATION: XR CHEST [...] 07/28/24 1505 DD/ 1420 TD/TT: 07/28/24 1431 Pharmaceutical Detailer: Sue Hooper MD IMG XR PROCEDURES Final Resul t * POCT Rapid Influenza B CHÁVEZ ID NOW (07/28/2024 1:36 PM EST) Influenza B Negative Negative, Indeterminate [facility] Swab 07/28/2024 1:36 PM EST Sue Hooper MD POINT OF CARE TEST ENTER/EDIT ORDERABLES Final Result Performing Organization Address [facility]/ZIP Co de Phone Number [facility] [address] [place] [phone] * POCT Rapid Influenza A CHÁVEZ ID NOW (07/28/2024 1:36 PM EST) [facility] Influenza A Negative Negative, Indeterminate [facility] Swab 07/28/2024 1:36 PM EST Sue Hooper MD POINT OF CARE TEST ENTER/EDIT ORDERABLES Final Result Performing Organization Address [facility] Co de Phone Number [facility] [address] [place] [phone] * POCT Rapid Covid-19 BinaxNOW (07/28/2024 1:21 PM EST) Rapid COVID Ag Negative Swab 07/28/2024 1:21 PM EST Sue Hooper MD POINT OF CARE TEST ENTER/EDIT ORDERABLES Final Result * CT Chest w/ Contrast (07/02/2024 10:35 AM EST) Anatomical Region Laterality Modality Body, Chest Computed Tomogra phy 07/02/2024 10:3 5 AM EST Narrative 07/02/2024 12:11 PM EST ? [facility] ?[address] ?[place], [place] [address] ? CT Scan Report ? Signed ? Patient: Emerita,Janine ?MR#: [id number] ?? 34 ? : 1940 ?Acct:[id number] ? Age/Sex: 83 / F ?ADM Date: 07/02/24 ? Loc: HO.CT ? Attending Dr: Yosef Wolff MD ? Ordering Physician: Yosef Wolff MD ?? Date of Service: 07/02/24 ?? Procedure(s): CT chest w IV con ?? Accession Number(s): [id number] ? cc: Yosef Wolff MD; Sarah Mathews MD ? Report Number: ?? [id number]: Total DLP = ?? 85.00 mGy-cm ?? [...] DD/ 1035 ? TD/TT: 07/02/24 1103 ? Pharmaceutical Detailer: ? Procedure Note Enzo, Image - 07/02/[address] [address] [address] Scan Report Signed Patient: Vanesa Felder#: [id number] [birth year] : 2Acct:[id number] Age/Sex: 83 / FADM Date: 07/02/24 Loc: HO.CT Attending Dr: Yosef Wolff MD Ordering Physician: Yosef Wolff MD Date of Service: 07/02/24 Procedure(s): CT chest w IV con Accession Number(s): [id number] cc: Yosef Wolff MD; Sarah Mathews MD Report Number: [id number]: Total DLP = 85.00 mGy-cm EXAMINATION: CT [...] by: Fito Willams MD 07/02/2024 12:[address] [facility] Dictated By: Fito Weiss MD Signed By: <Electronically signed by Fito Galan MDin OV> 07/02/24 1208 DD/ 1035 TD/TT: 07/02/24 1103 Pharmaceutical Detailer: [facility] External Provider IMG CT PROCEDURES Final Result * (ABNORMAL) Urinalysis, Complete, with Reflex to Culture (06/11/2024 9:24 AM EST) Color Urine Yellow [facility] Appearance Urine Cloudy [facility] PH 5.5 5.0 - 9.0 [facility] Glucose Urine UA Negative Negative mg/dL [facility] Urine Blood Negative Negative [facility] Specific [place] - Urine 1.015 1.005 - 1.025 [facility] Urine Protein Negative Neg-Trace mg/dL [facility] Urine Ketones Negative Negative mg/dL [facility] Nitrite Urine Negative Negative [facility] Leukocyte Esterase Urine Small (1+)(A) Negative [facility] RBC Urine 0-2 0 - 2 /HPF [facility] Urine WBC 0-5 0 - 5 /HPF [facility] Urine Squamous Epithelial Cell 0-2 0 - 2 /HPF [facility] Urine Bacteria None Seen None Seen [facility] Hyaline Casts, Urine 0-2 0 - 2 /LPF [facility] 06/11/2024 9:24 AM EST 06/11/2024 9:28 AM EST Narrative [facility] - 06/11/2024 9:53 AM EST Urine, Clean Catch Generic External Data Provider LAB URINE ORDERAB LES Final Result [facility] [address] [place] [phone] * Prothrombin Time-INR (06/11/2024 8:44 AM EST) Prothrombin Time 12.1 10.9 - 12.4 SEC [facility] INTERNATIONAL NORM RATIO 1.0 0.9 - 1.1 [facility] Comment:INTERNATIONAL NORMAL IZED RATIO (INR) REFERENCE [...] 8:44 AM EST 06/11/2024 8:51 AM EST Generic External Data Provider LAB BLOOD ORDERAB LES Final Result Performing Organization Address City/[facility]/ZIP Co de Phone Number [facility] [address] [place] [phone] * Lactic Acid (06/11/2024 8:44 AM EST) Lactic Acid 0.9 0.5 - 2.0 mmol/L [facility] 06/11/2024 8:44 AM EST 06/11/2024 8:51 AM EST [employer] External Data Provider LAB BLOOD ORDERAB LES Final Result Performing Organization Address City/[facility]/ZIP Co de Phone Number [facility] [address] [place] [phone] * Hepatic Function Panel (06/11/2024 8:44 AM EST) Bilirubin, Total 0.4 0.0 - 1.0 mg/dL [facility] Bilirubin, Direct 0.3 0.0 - 0.5 mg/dL [facility] Aspartate Amino Transferase 23 5 - 31 U/L [facility] Alanine Aminotransferase <6 0 - 31 U/L [facility] Total Protein 6.6 6.5 - 8.0 g/dL [facility] Albumin Level 3.6 3.5 - 5.0 g/dL [facility] Alkaline Phosphatase 61 39 - 117 U/L [facility] 06/11/2024 8:44 AM EST 06/11/2024 8:51 AM EST us Generic External Data Provider LAB BLOOD ORDERAB LES Final Result [facility] [address], [place] [phone] * (ABNORMAL) Basic Metabolic Panel (06/11/2024 8:44 AM EST) Sodium 139 135 - 145 mmol/L [facility] Potassium 3.4 3.3 - 5.1 mmol/L [facility] Chloride 102 96 - 108 mmol/L [facility] Carbon Dioxide 28 22 - 29 mmol/L [facility] Anion Gap 12 12 - 20 [facility] Urea Nitrogen (BUN) 33(H) 9 - 16 mg/dL [facility] Creatinine, Serum 1.59(H) 0.5 - 1.4 mg/dL [facility] Creatinine Clr Calc Pharmacy 36.6 [facility] Comment:Provided height and weight: 165.1 cm,127 kg.eGFR (calculated from the MDRD study equation) and eCrCl(calculated from the Cockcroft-Gault equation) are based ondifferent parameters and may not yield comparable results.If eCrCl result is absurd, please check patient'sheight/weight. Estimated Glomerular Filt Rate 31 [facility] Comment:Chronic Kidney Disea se: Estimated GFR < 60 mL/min/[id number] Kidney Disease: Estimated GFR < 15 mL/min/1.73m2 Glucose 97 60 - 115 mg/dL [facility] Calcium 8.9 8.4 - 10.2 mg/dL [facility] 06/11/2024 8:44 AM EST 06/11/2024 8:51 AM EST us Generic External Data Provider LAB BLOOD ORDERAB LES Final Result Performing Organization Address [facility] Co de Phone Number [facility] [address] [place] [phone] * Lipid Panel, Standard (05/09/2024 8:09 AM EST) Triglycerides 48 <150 mg/dL [facility] Comment:Desirable Triglyceri de: less than 150 mg/dLBorderline High Triglyceride 150-199 mg/dLHigh Triglyceride: 200-499 mg/dLVery High Triglyceride: greater than or equal to 5OO mg/dL Cholesterol 158 <200 mg/dL [facility] Comment:Desirable Cholestero l: less than 200 mg/dLBorderline High Cholesterol: 200-239 mg/dLHigh Cholesterol: greater than 239 mg/dL LDL Cholesterol Calculated 82 <100 mg/dL [facility] Comment:Desirable LDL: less than 100 mg/dLNear Optimal/Above Optimal LDL: 110- 129 mg/dLBorderline High LDL: 130-159 mg/dLHigh LDL: 160-189 mg/dLVery High LDL: greater than or equal to 190 mg/dL HDL Cholesterol 67 >40 mg/dL [facility] Comment:Desirable HDL: great er than 40 mg/dL Note: This HDL assay may give artificially low results in patients with liver disease. Blood Venous blood specimen / Unknown 05/09/2024 8:09 AM EST 05/09/2024 8:09 AM EST Sarah Mathews MD LAB BLOOD ORDERABLES Final Resul t Performing Organization Address City/[facility]/ZIP Co de Phone Number [facility] [address] [place] [address] [phone] from Last 3 Months or Most Recently Relevant to Health Maintenance Insurance [employer] MEDICARE ADVANTAGE HMO Care Teams Frit Mixer Relationship Specialty Start Date End Date Sarah Mathews MD [address] [place] [address] PCP - General Family Medicine 04/15/12 Juan A 06/15/24
--- OUTSIDE RECORDS SUMMARY | 2024-08-26 14:09 | XMS_ITS | Encounter Summary ---
Author Organization [employer] Address [address] [facility] 7t [place] [address] Care Team Providers Care Cook Specialty Foreign Food Name Role Phone Sarah Mathews MD Primary Care Provider [phone] Encounter Details Date Type Department Care Team ([facility] st Contact Info) Description 08/13/2024 Telephone [employer] [address] [place] [address] Melanie Marlow MD [address] [place], [place] [phone] Social History Tobacco Use Types Packs/Day Years [...] encounter Miscellaneous Notes * Telephone Encounter - Sarai Wu - 08/13/2024 9:17 AM EST Good morning Dr. Marlow, patient is scheduled with you today. Can you please add the need for cardiology referral sent by Dr. Mathews on 08/12, thank you. documented in this encounter Plan of Treatment Upcoming Encounters Date Type Department Care Team (Late st Contact Info) Description 09/28/2024 10:00 AM EDT Office Visit [facility] MED & PEDS [address] [place] [address] Sarah Mathews MD [address] [place] [address] documented as of this encounter Visit Diagnoses Not on filedocumented in this encounter Additional Health Concerns Assessment Noted Time PHQ-9 Depression Total Score: 2 04/29/20 24 10:19 AM EST documented as of this encounter Care Teams Cook Specialty Foreign Food Relationship Specialty Start Date End Date Sarah Mathews MD [address] [place] [address] PCP - General Family Medicine 04/15/12 Juan BENITES 06/15/24 documented as of this encounter
--- OUTSIDE RECORDS SUMMARY | 2024-08-26 14:09 | XMS_ITS | Encounter Summary ---
Author Organization [employer] Address [address] [facility] 7t [place] [address] Care Team Providers Care Production Line Name Role Phone Sarah Mathews MD Primary Care Provider [phone] Reason for Visit * Reason Onset Date Comments Hospital Follow-up 09/11/2023 Encounter Details Date Type Department Care Team ([facility] Contact Info) Description 09/11/2023 Telephone C [facility] MED & PEDS [address] [place], [place] [phone] Sarah Mathews MD [address] [place], [place] [phone] Hospital Follow-up Social History Tobacco Use Types [...] Miscellaneous Notes * Telephone Encounter - Cindy Bernal - 09/11/2023 10:38 AM EDT Tc from pt requesting a HDF appt. Hospital: [facility] Date of admission: 09/06 Discharge date: 09/08 Diagnosed: UTI, Fall, Acute kidney injury, Hypokalemia Please contact daughter at [phone] documented in this encounter Plan of Treatment Upcoming Encounters Date Type Department Care Team (Late st Contact Info) Description 09/28/2024 10:00 AM EDT Office Visit [facility] MED & PEDS [address] [place] [address] Sarah Mathews MD [address] [place] [address] documented as of this encounter Visit Diagnoses Not on filedocumented in this encounter Care Teams Production Line Relationship Specialty Start Date End Date Sarah Mathews MD [address] [place] [address] PCP - General Family Medicine 04/15/12 Juan A 06/15/24 documented as of this encounter
--- OUTSIDE RECORDS SUMMARY | 2024-08-26 14:09 | XMS_ITS | Encounter Summary ---
Author Organization [employer] Address [address] [facility] 7t [place] [address] Care Team Providers Care Agricultural Research Director Name Role Phone Sarah Mathews MD Primary Care Provider [phone] Reason for Visit * Reason Onset Date Comments Medication Question 07/29/2024 Encounter Details Date Type Department Care Team ([facility] st Contact Info) Description 07/29/2024 Telephone C [facility]S [address] [place], [place] [phone] Sarah Mathews MD [address] [place], [place] [phone] Medication Question Social History Tobacco Use Types [...] give Pt 10 mg. Contact pt at [phone] * Telephone Encounter - Abel Rutledge - 07/30/2024 4:08 PM EST Tc from Pt daughter requesting that 10 mg furosemide (Lasix) could be sent to [id number] AT [facility]. Pt daughter is also waiting for call to schedule and endogram for pt. Daughter Contact: [phone] * Telephone Encounter - Sarah Mathews MD - 07/29/2024 6:33 PM EST Please send verbal order of 10mg.[facility] does not let me send 10mg * Telephone Encounter - Melissa Kirby - 07/29/2024 12:15 PM EST Tc from pt daughter Lamar calling to inform went to sisal picker medication furosemide (Lasix) 20 MG tablet but was advised by a pharmacist to contact pcp office to switch script over to 10 mg instead of 20 mg so that its easier to spilt medication in half. Any further questions please contact phone # [phone] documented in this encounter Plan of Treatment Upcoming Encounters Date Type Department Care Team ([facility] st Contact Info) Description 09/28/2024 10:00 AM EDT Office Visit [facility] CHC MED & PEDS [address] [place] [address] Sarah Mathews MD [address] [place] [address] documented as of this encounter Visit Diagnoses Not on filedocumented in this encounter Additional Health Concerns Assessment Noted Time PHQ-9 Depression Total Score: 2 04/29/20 24 10:19 AM EST documented as of this encounter Care Teams Agricultural Research Director Relationship Specialty Start Date End Date Sarah Mathews MD [address] [place] [address] PCP - General Family Medicine 04/15/12 Juan BENITES 06/15/24 documented as of this encounter
--- OUTSIDE RECORDS SUMMARY | 2024-08-26 14:09 | XMS_ITS | Encounter Summary ---
Author Organization [employer] Address [address] [facility] [address] [facility] [address] 7t [place] [address] Care Team Providers Care Carton Stenciler Name Role Phone Sarah Mathews MD Primary Care Provider [phone] Encounter Details Date Type Department Care Team (Late st Contact Info) Description 08/06/2024 Telephone [facility] [address] [place] [address] [phone] Bienvenido Canela MD [address] [place] [address] [phone] Social History Tobacco Use Types Packs/Day Years [...] encounter Miscellaneous Notes * Telephone Encounter - Jyotsna Barrett RN - 08/07/2024 1:56 PM EST Spoke with daughter Lamar, who was with patient. Pt states she is doing better. She is using the O2.Bp is still fluctuating. She is receiving her neb treatments as well. No chest pain, difficulty breathing, respiratoy distress. Instructed daughter to take Mom to WIC or ED if symptoms start again. Daughter verbally stated understanding and agrees with plan. * Telephone Encounter - Bienvenido Canela MD - 08/06/2024 9:45 PM EST On-Call Note: Received a call from VNA nurse Saba Hassan due to low BP of 90/50 with HR 64. Was discharged yesterday from [facility] [place]3-[place]) due to COPD exacerbation and UTI. Underlying small cell carcinomaof lung, followed by Heme/Onc. States clinically doing well when VNA RN visited the patient. Deniesdizziness, lightheadedness, CP, or AUGUST. Currently scheduled for hospital discharge F/U on 08/13/[address] Marlow (PCP Dr. Mathews). Could you please check to see if sooner appointment is available? Ifnot, please check in with patient on Saturday or Saturday for a status check. Thank you. Bienvenido Canela MD documented in this encounter Plan of Treatment Upcoming Encounters Date Type Department Care Team (Late st Contact Info) Description 09/28/2024 10:00 AM EDT Office Visit [facility] CH[facility] MED & PEDS [address] [facility] [place] [address] Sarah Mathews MD [address] [place] [address] documented as of this encounter Visit Diagnoses Not on filedocumented in this encounter Additional Health Concerns Assessment Noted Time PHQ-9 Depression Total Score: 2 04/29/20 24 10:19 AM EST documented as of this encounter Care Teams Carton Stenciler Relationship Specialty Start Date End Date Sarah Mathews MD [address] [place] [address] PCP - General Family Medicine 04/15/12 Juan BENITES 06/15/24 documented as of this encounter
--- OUTSIDE RECORDS SUMMARY | 2024-08-26 14:09 | XMS_ITS | Encounter Summary ---
Author Organization [employer] Address [address] [facility] 7t [place] [address] Care Team Providers Care Ways Operator Name Role Phone Sarah Mathews MD Primary Care Provider [phone] Reason for Visit * Reason Onset Date Comments FYI 09/16/2023 Encounter Details Date Type Department Care Team ([facility] st Contact Info) Description 09/16/2023 Telephone C [facility] MED & PEDS [address] [place], [place] [phone] Sarah Mathews MD [address] [place], [place] [phone] FYI Social History Tobacco Use Types Packs/Day [...] MG tablet. Any questions, contact [place] at [phone] documented in this encounter Plan of Treatment Upcoming Encounters Date Type Department Care Team ([facility] st Contact Info) Description 09/28/2024 10:00 AM EDT Office Visit [facility] MED & PEDS [address] [place] [address] Sarah Mathews MD [address] [place] [address] documented as of this encounter Visit Diagnoses Not on filedocumented in this encounter Care Teams Ways Operator Relationship Specialty Start Date End Date Sarah Mathews MD [address] [place] [address] PCP - General Family Medicine 04/15/12 Juan BENITES 06/15/24 documented as of this encounter
--- OUTSIDE RECORDS SUMMARY | 2024-08-26 14:09 | XMS_ITS | Encounter Summary ---
Author Organization [employer] Address [address] [facility] 7t [place] [address] Care Team Providers Care Deliverer Food Name Role Phone Sarah Mathews MD Primary Care Provider Reason for Visit * Reason Comments Med Refill Encounter Details Date Type Department Care Team ([facility] st Contact Info) Description 02/09/2024 Refill [facility] MEDICINE [address] [place] [address] Sarah Mathews MD [address] [place], [place] [phone] Primary hypertension Social History Tobacco Use Types [...] Description 09/28/2024 10:00 AM EDT Office Visit [facility] MED & PEDS [address] [place] [address] Sarah Mathews MD [address] [place] [address] documented as of this encounter Visit Diagnoses Diagnosis Primary hypertension Unspecified essential hypertension documented in this encounter Care Teams Deliverer Food Relationship Specialty Start Date End Date Sarah Mathews MD [address] [place] [address] PCP - General Family Medicine 04/15/12 Juna Daniella 06/15/24 documented as of this encounter
--- OUTSIDE RECORDS SUMMARY | 2024-08-26 14:09 | XMS_ITS | Encounter Summary ---
Author Organization [employer] Address [address] [facility] 7t [place] [address] Care Team Providers Care Paper Coater Name Role Phone Sarah Mathews MD Primary Care Provider [phone] Encounter Details Date Type Department Care Team (Latest Contact Info) Description 08/26/2024 Travel Social History Tobacco Use Types Packs/Day [...] 09/28/2024 10:00 AM EDT Office Visit [facility] MED & PEDS [address] [place] [address] Sarah Mathews MD 505 [place] [address] documented as of this encounter Visit Diagnoses Not on filedocumented in this encounter Additional Health Concerns Assessment Noted Time PHQ-9 Depression Total Score: 2 04/29/20 24 10:19 AM EST documented as of this encounter Care Teams Paper Coater Relationship Specialty Start Date End Date Sarah Mathews MD [address] [place] [address] PCP - General Family Medicine 04/15/12 Juan BENITES 06/15/24 documented as of this encounter
--- OUTSIDE RECORDS SUMMARY | 2024-08-26 14:09 | XMS_ITS | Encounter Summary ---
Author Organization [employer] Address [address] [facility] 7t [place] [address] Care Team Providers Care Museum Archivist Name Role Phone Sarah Mathews MD Primary Care Provider [phone] Reason for Visit * Reason Onset Date Comments ECHO ORDER 08/12/2024 Encounter Details Date Type Department Care Team ([facility] [address] Contact Info) Description 08/12/2024 Telephone [employer] [facility] [address] [place] [address] Sarah Mathews MD [address] [place] [address] ECHO ORDER Social History Tobacco Use Types Packs/Day Years [...] encounter Miscellaneous Notes * Telephone Encounter - Rachelle Francois - 08/12/2024 2:53 PM EST Incoming fax from [facility], Patient had this test performed during Inpatient admission at [facility]. Please contact Health Information Management dept. at [facility] for report and advise if this test is still needed. Please be advised thatpatient will not be contacted until a response is received from the office. documented in this encounter Plan of Treatment Upcoming Encounters Date Type Department Care Team ([facility] st Contact Info) Description 09/28/2024 10:00 AM EDT Office Visit [facility] MED & PEDS [address] [place] [address] Sarah Mathews MD [address] [place] [address] documented as of this encounter Visit Diagnoses Not on filedocumented in this encounter Additional Health Concerns Assessment Noted Time PHQ-9 Depression Total Score: 2 04/29/20 24 10:19 AM EST documented as of this encounter Care Teams Museum Archivist Relationship Specialty Start Date End Date Sarah Mathews MD [address] [place] [address] PCP - General Family Medicine 04/15/12 Juan BENITES 06/15/24 documented as of this encounter
--- OUTSIDE RECORDS SUMMARY | 2024-08-26 14:09 | XMS_ITS | Encounter Summary ---
Author Organization [employer] Address [address] [facility] 7t [place] [address] Care Team Providers Care Ruby Software Developer Name Role Phone Sarah Mathews MD Primary Care Provider [phone] Reason for Visit * Reason Onset Date Comments FYI 06/16/2024 Encounter Details Date Type Department Care Team ([facility] st Contact Info) Description 06/16/2024 Telephone [facility] MEDICINE [address] [place] [address] Sarah Mathews MD [address] [place], [place] [phone] FYI Social History Tobacco Use Types Packs/Day [...] - 06/16/2024 11:21 AM EST Tc from Juan BENITES ([facility]) Stating that they admitted pt into Physical Therapy and will be seeing pt once a week. documented in this encounter Plan of Treatment Upcoming Encounters Date Type Department Care Team (Late st Contact Info) Description 09/28/2024 10:00 AM EDT Office Visit [facility] MED & PEDS [address] [place] [address] Sarah Mathews MD [address] [place] [address] documented as of this encounter Visit Diagnoses Not on filedocumented in this encounter Additional Health Concerns Assessment Noted Time PHQ-9 Depression Total Score: 2 04/29/20 24 10:19 AM EST documented as of this encounter Care Teams Ruby Software Developer Relationship Specialty Start Date End Date Sarah Mathews MD [address] [place] [address] PCP - General Family Medicine 04/15/12 Juan BENITES 06/15/24 documented as of this encounter
--- OUTSIDE RECORDS SUMMARY | 2024-08-26 14:09 | XMS_ITS | Encounter Summary ---
Author Organization [employer] Address [address] [facility] 7t [place] [address] Care Team Providers Care Corporate Legal Assistant Name Role Phone Sarah Mathews MD Primary Care Provider [phone] Encounter Details Date Type Department Care Team [...] 10:00 AM EDT Office Visit [facility] MED & PEDS 505 [place] [address] Sarah Mathews MD 505 [place] [address] documented as of this encounter Visit Diagnoses Not on filedocumented in this encounter Additional Health Concerns Assessment Noted Time PHQ-9 Depression Total Score: 2 04/29/20 24 10:19 AM EST documented as of this encounter Care Teams Corporate Legal Assistant Relationship Specialty Start Date End Date Sarah Mathews MD [address] [place] [address] PCP - General Family Medicine 04/15/12 Juan BENITES 06/15/24 documented as of this encounter
--- OUTSIDE RECORDS SUMMARY | 2024-08-26 14:09 | XMS_ITS | Encounter Summary ---
Author Organization [employer] Address [address] [facility] 7t [place] [address] Care Team Providers Care Education And Training Coordinator Name Role Phone Sarah Mathews MD Primary Care Provider [phone] Reason for Visit * Reason Onset Date Comments Hospital Follow-up 08/05/2024 Encounter Details Date Type Department Care Team ([facility] st Contact Info) Description 08/05/2024 Telephone [facility] MEDICINE [address] [place] [address] Sarah Mathews MD [address] [place], [place] [phone] Hospital Follow-up Social History Tobacco Use Types [...] encounter Miscellaneous Notes * Telephone Encounter - Abel Aamir - 08/05/2024 3:54 PM EST Tc from pt requesting a HDF appt. Hospital: [facility] Date of admission: 08/03/2024 Discharge date: 08/05/2024 Diagnosed: Respiratory Problems and UTI *Send message to [place] [facility] Care Coordinators documented in this encounter Plan of Treatment Upcoming Encounters Date Type Department Care Team (Late st Contact Info) Description 09/28/2024 10:00 AM EDT Office Visit [facility] CHC MED & PEDS [address] [place] [address] Sarah Mathews MD [address] [place] [address] documented as of this encounter Visit Diagnoses Not on filedocumented in this encounter Additional Health Concerns Assessment Noted Time PHQ-9 Depression Total Score: 2 04/29/20 24 10:19 AM EST documented as of this encounter Care Teams Education And Training Coordinator Relationship Specialty Start Date End Date Sarah Mathews MD [address] [place] [address] PCP - General Family Medicine 04/15/12 [facility] documented as of this encounter
--- OUTSIDE RECORDS SUMMARY | 2024-08-26 14:09 | XMS_ITS | Encounter Summary ---
Author Organization [employer] Address [address] [facility] 7t [place] [address] Care Team Providers Care Sap Data Architect Name Role Phone Sarah Mathews MD Primary Care Provider Reason for Visit * Reason Comments Transition Of Care (Tcm) HDF- scheduled Encounter Details Date Type Department Care Team ([facility] Contact Info) Description 08/05/[address] [facility] CHC MED & PEDS [address] [place], [place] [phone] Sarah Mathews MD [address] [place], [place] [phone] Transition Of Care (Tcm) (HDF- scheduled ) Social History Tobacco Use Types Packs/Day [...] as of this encounter Progress Notes * Sarah Mathews MD - 08/05/2024 3:59 PM EST Labs reviewed Bun elevated mostly from some dehydration * Wing Ralph RN - 08/05/2024 3:59 PM EST Tc to pt's daughter. Pt was concerned about elevated BNP and echo results done at [facility] on 08/05/24. Uploaded both results to pt's media. Informed daughter would message PCP to have her review these twoas that is what she is concerned about. Daughter verbalized understanding and agreement with plan. 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 Spoke with daughter Lamar. Reviewed labs. Lamar was looking for BNP results, informed her that that particular lab is sometime ordered at hospital. Stated it was done when pt got ECHO done. Appointment scheduled for 08/13/24. Will review results with provider at that time. documented in this encounter Miscellaneous Notes * Significant Event - Nkechi Oakleya - 08/05/2024 4:07 PM EST 08/05/24 1605 Hospital Discharges and Admission for [facility] Type of Visit Hospital Admission Date of Admission/Visit 08/03/24 Date of Discharge 08/03/24 Facility [facility] Diagnosis Respiratory Problems and UTI Disposition Discharged Home Follow-Up Actions Follow-Up Needed Provider appointment Follow-Up Outcome Spoke to Caregiver;Booked Appointment Initial Contact Date 08/05/24 CC Nkechi Yip placed outbound call to patient for HDF outreach. Patient's name and were confirmed by daughter. Patient offered an HDF appt. Patient is agreeable to an appointment and has been scheduled for 08/13/2024 at 10:[address] Marlow. Daughter would like for PCP to review Cardiac USand B enzyme labs and call daughter back due to enzymes levels being unleveled. Stated would send amessage to nurses to follow up . Insurance verified prior to scheduling. Patient advised to bring to appointment a photo id and insurance card. Patient provided with education on contacting the Health Center with any questions or concerns prior to the scheduled appointment. Patient educated on extended clinic hours on Mondays and Wednesdays, and Walk-In Urgent Care Located in [facility] of [facility]. Patient provided with after-hours line for [facility], , which offer night time triage service and option to transfer to recreational sports director provider if needed. CC will request Discharge summary to be scanned intochart. documented in this encounter Plan of Treatment Upcoming Encounters Date Type Department Care Team ([facility] st Contact Info) Description 09/28/2024 10:00 AM EDT Office Visit [facility] MED & PEDS [address] [place] [address] Sarah Mathews MD [address] [place] [address] documented as of this encounter Visit Diagnoses Not on filedocumented in this encounter Additional Health Concerns Assessment Noted Time PHQ-9 Depression Total Score: 2 04/29/20 24 10:19 AM EST documented as of this encounter Care Teams Sap Data Architect Relationship Specialty Start Date End Date Sarah Mathews MD [address] [place] [address] PCP - General Family Medicine 04/15/12 Juan Daniella 06/15/24 documented as of this encounter
--- OUTSIDE RECORDS SUMMARY | 2024-08-26 14:09 | XMS_ITS | Encounter Summary ---
Author Organization [employer] Address [address] [facility] 7t [place] [address] Care Team Providers Care Bank Appraiser Name Role Phone Sarah Mathews MD Primary Care Provider [phone] Reason for Visit * Reason Onset Date Comments Nurse Triage 07/28/2024 Encounter Details Date Type Department Care Team ([facility] st Contact Info) Description 07/28/2024 Telephone C [facility] [address] [place], [place] [phone] Sarah Mathews MD [address] [place] [address] Nurse Triage Social History Tobacco Use Types [...] 9:32 AM EST Called pt. Daughter Lamar [phone]. Pt. Daughter states that pt. Has been trying to cough up mucous but, having trouble. This am o2 has been 84% and her heart rate has been low. Pt recently had a UTI a few weeks ago. Unsure if pt. Has UTI. Pt. Is using o2 and taking Geritussin but, not able to get phlegm out of lungs. Current pulse 127/74- 77 [id number]%- Pt. On o2 2 liters and is helping pt. Atpresent. No fever. Pt in background stating that she is urinating within normal limits. Pt. Has nonproductive cough. No swelling in legs. Advised to have pt. Get assessed in [facility] walk in today even though pt. [...] Description 09/28/2024 10:00 AM EDT Office Visit [facility] PEDS [address] [place] [address] Sarah Mathews MD [address] [place] [address] documented as of this encounter Visit Diagnoses Not on filedocumented in this encounter Additional Health Concerns Assessment Noted Time PHQ-9 Depression Total Score: 2 04/29/20 24 10:19 AM EST documented as of this encounter Care Teams Bank Appraiser Relationship Specialty Start Date End Date Sarah Mathews MD [address] [place] [phone] PCP - General Family Medicine 04/15/12 Juan BENITES 06/15/24 documented as of this encounter
--- OUTSIDE RECORDS SUMMARY | 2024-08-26 14:09 | XMS_ITS | Encounter Summary ---
Author Organization [employer] Address [address] [facility] [address] 7t [place] [address] Care Team Providers Care Plumbing Engineer Name Role Phone Sarah Mathews MD Primary Care Provider [phone] Encounter Details Date Type Department Care Team (Late st Contact Info) Description 07/28/2024 4:00 PM EST Office Visit [facility] [address] [place] [address] Sue Hooper MD [address] [place] [address] COPD exacerbation (CMS/HCC) (Primary Dx); Cough, unspecified [...] in this encounter Progress Notes * Sue Hooepr MD - 07/28/2024 4:00 PM EST Subjective [...] the low 90s. They have also noticed oDrota coughing more but she is unable to [...] all orders for this visit: COPD exacerbation ([facility]): Negative POCT for COVID and flu today. [...] Description 09/28/2024 10:00 AM EDT Office Visit [facility] [address] [place] [address] Sarah Mathews MD [address] [place] [address] documented as of this encounter Procedures Procedure [...] PM EST Narrative 07/28/2024 3:08 PM EST ?[facility] ?[address] ?[place] [address] ?XRay Report ? Signed ? Patient: Emerita,Janine ?MR#: [id number] ?? 34 ? : 1940 ?Acct:[id number] ? Age/Sex: 84 / F ?ADM Date: 02/04/25 ? Loc: HO.HHCX ? Attending Dr: Sue Hooper MD ? Ordering Physician: Sue Hooper MD ?? Date of Service: 07/28/24 ?? Procedure(s): XR chest 2V ?? Accession Number(s): [id number] ? cc: Sue Hooper MD ? EXAMINATION: [...] DD/ 1420 ? TD/TT: 07/28/24 1431 ? Machine Operator Replanter: ? Procedure Note Umm Giraldo - 07/28/[address] [address] XRay Report Signed Patient: Vanesa Felder#: [id number] 34 : 2Acct:[id number] Age/Sex: 84 / FADM Date: 07/28/24 Loc: HO.HHCX Attending Dr: Sue Hooper MD Ordering Physician: Sue Hooper MD Date of Service: 07/28/24 Procedure(s): XR chest 2V Accession Number(s): [id number] cc: Sue Hooper MD EXAMINATION: XR CHEST [...] 07/28/24 1505 DD/ 1420 TD/TT: 07/28/24 1431 Machine Operator Replanter: Sue Hooper MD IMG XR PROCEDURES Final Resul t * POCT Rapid Influenza B CHÁVEZ ID NOW (07/28/2024 1:36 PM EST) [facility] Influenza B Negative Negative, Indeterminate [facility] Swab 07/28/2024 1:36 PM EST Sue Hooper MD POINT OF CARE TEST ENTER/EDIT ORDERABLES Final Result Performing Organization Address [facility] Co de Phone Number [facility] [address] [place] [phone] * POCT Rapid Influenza A CHÁVEZ ID NOW (07/28/2024 1:36 PM EST) [facility] Influenza A Negative Negative, Indeterminate [facility] Swab 07/28/2024 1:36 PM EST Sue Hooper MD POINT OF CARE TEST ENTER/EDIT ORDERABLES Final Result Performing Organization Address [facility] Co de Phone Number [facility] [address] [place] [phone] * POCT Rapid Covid-19 BinaxNOW (07/28/2024 1:21 PM EST) [facility] Rapid COVID Ag Negative Swab 07/28/2024 1:21 PM EST Sue Hooper MD POINT OF CARE TEST ENTER/EDIT ORDERABLES Final Result documented in this encounter Visit Diagnoses Diagnosis COPD exacerbation ([facility])- Primary Obstructive chronic bronchitis with exacerbation Cough, unspecified type documented in this encounter Additional Health Concerns Assessment Noted Time PHQ-9 Depression Total Score: 2 04/29/20 24 10:19 AM EST documented as of this encounter Care Teams Plumbing Engineer Relationship Specialty Start Date End Date Sarah Mathews MD [address] [place] [address] PCP - General Family Medicine 04/15/12 Juan BENITES 06/15/24 documented as of this encounter
--- OUTSIDE RECORDS SUMMARY | 2024-08-26 14:09 | XMS_ITS | Encounter Summary ---
Author Organization [employer] Address [address] [facility] 7t [place] [address] Care Team Providers Care Clerical Assigner Name Role Phone Sarah Mathews MD Primary Care Provider [phone] Encounter Details Date Type Department Care Team (Latest Contact Info) Description 08/13/2024 Travel Social History Tobacco Use Types Packs/Day [...] AM EDT Office Visit [facility] MED [facility] PED[facility] [address] [place] [address] Sarah Mathews MD [address] [place] [address] documented as of this encounter Visit Diagnoses Not on filedocumented in this encounter Additional Health Concerns Assessment Noted Time PHQ-9 Depression Total Score: 2 04/29/20 24 10:19 AM EST documented as of this encounter Care Teams Clerical Assigner Relationship Specialty Start Date End Date Sarah Mathews MD [address] [place] [address] PCP - General Family Medicine 04/15/12 Juan BENITES 06/15/24 documented as of this encounter
--- OUTSIDE RECORDS SUMMARY | 2024-08-26 14:09 | XMS_ITS | Encounter Summary ---
Author Organization [employer] Address [address] [facility] 7t [place] [address] Care Team Providers Care Ui Software Engineer Name Role Phone Sarah Mathews MD Primary Care Provider [phone] Encounter Details Date Type Department Care Team (Late st Contact Info) Description 07/29/2024 Orders Only [facility] MED & PEDS [address] [place], [place] [phone] Sarah Mathews MD [address] [place], [place] [phone] Social History Tobacco Use Types Packs/Day Years [...] Upcoming Encounters Date Type Department Care Team ([facility] st Contact Info) Description 09/28/2024 10:00 AM EDT Office Visit [facility] MED & PEDS [address] [place] [address] Sarah Mathews MD [address] [place] [address] documented as of this encounter Procedures Procedure Name Priority Date/Time Associated Diagnosis Comments XR CHEST 1 VIEW Routine 08/03/2024 11:00 AM EST documented in this encounter Results * XR Chest 1 View (08/03/2024 11:00 AM EST) Anatomical Region Laterality Modality Chest Radiographic Preeti ging 08/03/2024 11:0 0 AM EST Narrative 08/03/2024 11:26 AM EST ? [facility] ?[address] ?[place] [address] ?XRay Report ? Signed ? Patient: Emerita,Janine ?MR#: [id number] ?? 34 ? : 1940 ?Acct:[id number] ? Age/Sex: 84 / F ?ADM Date: 02/10/25 ? Loc: HO.ED ? Attending Dr: ? Ordering Physician: Mery Reinoso ?? Date of Service: 08/03/24 ?? Procedure(s): XR chest 1V ?? Accession Number(s): [id number] ? cc: Mery Reinoso; Sarah Mathews MD [...] DD/ 1100 ? TD/TT: 08/03/24 1110 ? Bell Tier: MSM ? Procedure Note Enzo, Umm - 08/03/[address] [address] XRay Report Signed Patient: Vanesa Felder#: [id number] 34 : 2Acct:[id number] Age/Sex: 84 / FADM Date: 08/03/24 Loc: .ED Attending Dr: Ordering Physician: Mery Reinoso Date of Service: 08/03/24 Procedure(s): XR chest 1V Accession Number(s): [id number] cc: Mery Reinoso; Sarah Mathews MD EXAMINATION: [...] 08/03/24 1124 DD/ 1100 TD/TT: 08/03/24 1110 Bell Tier: SAMMY [facility] External Provider IMG XR PROCEDURES Final Result documented in this encounter Visit Diagnoses Not on filedocumented in this encounter Additional Health Concerns Assessment Noted Time PHQ-9 Depression Total Score: 2 04/29/20 24 10:19 AM EST documented as of this encounter Care Teams Ui Software Engineer Relationship Specialty Start Date End Date Sarah Mathews MD [address] [place] [phone] PCP - General Family Medicine 04/15/12 Juan BENITES 06/15/24 documented as of this encounter
--- OUTSIDE RECORDS SUMMARY | 2024-08-26 14:09 | XMS_ITS | Encounter Summary ---
Author Organization [employer] Address [address] [facility] 7t [place] [address] Care Team Providers Care It Network Administrator Name Role Phone Sarah Mathews MD Primary Care Provider [phone] Encounter Details Date Type Department Care Team (Latest Contact Info) Description 08/13/2024 10:30 AM EST Office Visit [facility] MED & PEDS [address] [place], [place] [phone] Melanie Marlow MD [address] [place] [address] Smoker (Primary Dx); Chronic obstructive pulmonary disease, unspecified COPD type (CMS/HCC); Hypoxemia; Atherosclerotic cardiovascular disease Social History Tobacco Use Types Packs/Day Years [...] Sign Reading Time Taken Comments Blood Pressure 115/70 08/13/2024 10:24 AM EST Pulse 79 08/13/2024 10:24 AM EST Temperature 35.9 ??C (96.7 ??F) 08/13/2024 10:[address] Respiratory Rate 18 08/13/2024 10:24 AM EST Oxygen Saturation 97% 08/13/2024 10:24 AM EST Inhaled Oxygen Concentration - - Weight 54 kg (119 lb) 08/13/2024 10:24 AM EST Height 163 cm (5' 4.17 ) 08/13/2024 10:24 AM EST Body Mass Index 20.32 08/13/2024 10:24 AM EST documented in this encounter Progress Notes * Melanie Marlow MD - 08/13/2024 10:30 AM EST Subjective Patient ID: Janine Felder is a 84 y.o. female who presents for follow-up [facility] hospitalization for acute bronchitis/COPD exacerbation from COVID infection. Janine is an 84-year-old female patient of Dr. Mathews here for follow-up discharge of hospital where she was admitted for 4 days due to COPD exacerbation after COVID infection and UTI. Patient required ceftriaxone and prednisone treatment which she has now finished. She feels better now. She has home oxygen that she uses as needed. She is followed by movement education specialist Dr. Soliz with whom she has afollow-up on September 19. She is being followed by Dr. Wolff for lung cancer as well. She is only on albuterol as needed and coughs frequently. She was referred recently to cardiology by PCP due to lower extremity edema and abnormal echocardiogram revealing severe calcification of mitral valve. Review of Systems Constitutional: Negative for activity change, chills, fever and unexpected weight change. Respiratory: Negative for cough, shortness of breath and wheezing. Cardiovascular: Negative for chest pain, palpitations and leg swelling. Gastrointestinal: Negative for abdominal pain and blood in stool. Endocrine: Negative for polydipsia and polyuria. Genitourinary: Negative for decreased urine volume, difficulty urinating, dysuria and hematuria. Musculoskeletal: Negative for arthralgias and gait problem. Skin: Negative for color change and rash. Neurological: Negative for dizziness, light-headedness and headaches. Hematological: Negative for adenopathy. Psychiatric/Behavioral: Negative for dysphoric mood, hallucinations, sleep disturbance and suicidalideas. The patient is not nervous/anxious. Objective BP 115/70 (BP Location: Left arm, Patient Position: Sitting, BP Cuff Size: Adult) Pulse79 Temp 96.7 ??F (35.9 ??C) (Oral) Resp 18 Ht 5' 4.17 (1.63 m) Wt 119 lb (54 kg) SpO2 97% BMI 20.32 kg/m?? Physical Exam Vitals reviewed. Constitutional: Appearance: She is not toxic-appearing. HENT: Head: Normocephalic. Cardiovascular: Rate and Rhythm: Normal rate and regular rhythm. Heart sounds: Normal heart sounds. No murmur heard. Pulmonary: Breath sounds: Rhonchi and rales present. Musculoskeletal: Right lower leg: Edema present. Left lower leg: Edema present. Neurological: Mental Status: She is oriented to person, place, and time. Assessment/Plan Diagnoses and all orders for this visit: Smoker Comments: Patient still smokes tobacco and is not willing to quit, has tried before with her medications. Chronic obstructive pulmonary disease, unspecified COPD type ([facility]) Comments: Spacer prescribed today to use with albuterol inhaler. Serevent also prescribed to help with her COPD symptoms and to be used twice daily. Rinse mouth after each use. F/U with pulmonary as scheduled. Orders: - Salmeterol Xinafoate (Serevent Diskus) 50 MCG/ACT aerosol powder ; Inhale 1 Act (50 mcg) 2 times daily. Hypoxemia Comments: Patient has portable oxygen tank with her today. O2 on room air was 97. Atherosclerotic cardiovascular disease Comments: Patient was referred to cardiology by PCP already. Has history of pedal edema although none on examtoday. BP stable. Echo reviewed. Other orders - Spacer/Aero-Holding Chambers device; Use spacer with albuterol inhaler documented in this encounter Plan of Treatment Upcoming Encounters Date Type Department Care Team (Late st Contact Info) Description 09/28/2024 10:00 AM EDT Office Visit [facility] MED & PEDS [address] [place] [address] Sarah Mathews MD [address] [place] [address] documented as of this encounter Visit Diagnoses Diagnosis Smoker- Primary Tobacco use disorder Chronic obstructive pulmonary disease, unspecified COPD type ([facility]) Hypoxemia Atherosclerotic cardiovascular disease documented in this encounter Additional Health Concerns Assessment Noted Time PHQ-9 Depression Total Score: 2 04/29/20 24 10:19 AM EST documented as of this encounter Care Teams It Network Administrator Relationship Specialty Start Date End Date Sarah Mathews MD [address] [place] [phone] PCP - General Family Medicine 04/15/12 Juan BENITES 06/15/24 documented as of this encounter
--- OUTSIDE RECORDS SUMMARY | 2024-08-26 14:09 | XMS_ITS | Encounter Summary ---
Author Organization [employer] Address [address] [place] [address] 7 [place] [address] Care Team Providers Care Reformatory Attendant Name Role Phone Sarah Mathews MD Primary Care Provider [phone] Reason for Referral * Consultation (Routine) - Pending Review Specialty Diagnoses / Procedures Referred By Hernando t Referred To Contact Pharmacy Diagnoses Urinary tract infection without hematuria, site unspecified Tash Walker, PharmD [address] [place] [address] Phone: tel: fax: Referral ID Status Reason Start Date Expiration Date Visits Requested Visits Authorized [id number] Pending Review Continuity of Care 09/12/2023 09/11/2024 1 1 Encounter Details Date Type Department Care Team (Late st Contact Info) Description 09/12/2023 Orders Only [facility] [address] [place], [place] [phone] Tash Walker, PharmD [address] [place], [place] [phone] Urinary tract infection without hematuria, site unspecified [...] Description 09/28/2024 10:00 AM EDT Office Visit [facility] MED & PEDS [address] [place] [address] Sarah Mathews MD [address] [place] [address] Scheduled Referrals Name Type Priority Associated Diagnoses Orde r Schedule Referral to Pharmacy MTM Outpatient Referral Routine Urinary tract infection without hematuria, site unspecified Ordered: 09/12/2023 documented as of this encounter Visit Diagnoses Diagnosis Urinary tract infection without hematuria, site unspecified- Primary documented in this encounter Care Teams Reformatory Attendant Relationship Specialty Start Date End Date Sarah Mathews MD [address] [place] [address] PCP - General Family Medicine 04/15/12 Juan BENITES 06/15/24 documented as of this encounter
== END 2024-08-26 11:39 | disposition home or self-care (01) ==
LOC: HO.XRAY 11:38
PROVIDERS: Absent Provider Internal Medicine Medical Oncology; PCP Student in an Organized Health Care Education/Training Program; Visit Provider Student in an Organized Health Care Education/Training Program
DX: J44.9 Chronic obstructive pulmonary disease, unspecified (principal)
CPT/HCPCS: 71046

== ENCOUNTER → 2024-08-26 11:44 | Outpatient (BNV) | payer MEDICARE, MEDICAID, SELFPAY | PROVIDERS: Absent Provider Internal Medicine Medical Oncology; PCP Student in an Organized Health Care Education/Training Program; Visit Provider Radiology Diagnostic Radiology | DX: J44.9 Chronic obstructive pulmonary disease, unspecified (principal) | CPT/HCPCS: 71046 ==

== ENCOUNTER 2024-09-10 09:19 | Outpatient (AMB) | payer MEDICARE, MEDICAID, SELFPAY ==
[2024-09-10 09:25] VITALS: BP 110/64; PULSE 77; O2SAT 97; BMI 20.9
--- NOTE | 2024-09-10 09:25 | MHC.OFFVIS ---
Vital Signs 09/10/24 09:25 Height 5 ft 5 in Weight 125 lb 10.616 oz BMI 20.9 BP 110/64 Blood Pressure Location Lt brachial Position Sitting Pulse 77 Pulse Source Pulse Oximeter Pulse Oximetry (%) 97 Oxygen Delivery Method Room Air Intake Visit Reasons: COPD Intake Note: pt is here for follow up and feels good, and using oxygen with exertion, and prn night time. Linoleum Tile Floor Layer Required: No Allergies No Known Allergies [No Known Allergies*] Allergy (Verified 09/10/24 09:40) Medication List - Last Reconciled 09/10/24 by Janet Soliz MD albuterol sulfate 90 mcg/actuation (Ventolin HFA) 2 inhalations inhalation Q6H PRN albuterol sulfate 2.5 mg (3 mL) inhalation Q4H PRN alprazolam 0.25 mg PO BEDTIME PRN blood pressure test kit-large As directed fluticasone furoate-vilanterol 100-25 mcg/dose (Breo Ellipta) 1 inh inhalation DAILY gemfibrozil 600 mg PO BID levothyroxine 125 mcg PO DAILY@0600 pravastatin 20 mg PO BEDTIME Do you need a note to return to daycare/school/sports/work: No HPI HPI COPD: Details: This 84 years old female, very pleasant, 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 She does have moderate degree of COPD which is under control with her current treatment, which is mainly oxygen with any physical activity and albuterol solution in the nebulizer once or twice a day, With background therapy of Breo Ellipta 10-25 once a day. She was treated for a an acute exacerbation back in July and has recovered from that. She still smokes before to 5 cigarettes a day, has increased the number of cigarettes due to stressful situation that she is going through( 1 daughter suffers from cancer ) She uses O2 mainly when she is doing any physical activity. Eating fairly well and maintaining her nutrition. [facility] Medical History (Updated 09/10/24 @ 09:47 by Janet Soliz MD) COPD (chronic obstructive pulmonary disease) Anemia Hypoxemia Smoker Diverticulosis Hypercholesteremia IBS (irritable bowel syndrome) HTN (hypertension) Surgical History (Updated 09/10/24 @ 09:49 by Janet Soliz MD) Small cell carcinoma Hx of tonsillectomy Hx of appendectomy History of lumpectomy Lymphadenopathy, mediastinal Lung mass H/O colonoscopy Family History Sister Breast cancer Social History Household Members: None Housing: Apartment Do you presently have visiting nurse or other home services: No Alcohol intake: never Patient Tobacco Use Status: Current everyday Tobacco user Tobacco use type: Cigarette Cigarette Packs Per Day: 0.25 Years Smoked: 60 e-Cigarette/Vaping Use: Currently Using Second Hand Smoke Exposure: No Advance Directives Date on File: 08/04/24 service: No Current occupational status: retired Review of Systems Const All systems reviewed & are unremarkable except as noted in HPI and below Eyes Reports no additional complaints ENT Reports no additional complaints Card Denies chest pain, Denies irregular heart rhythm and Denies leg edema Resp Reports as per HPI GI Reports no additional complaints Reports no additional complaints Musc Reports no additional complaints Skin/Breast Reports system reviewed and no additional complaints, except as documented Neuro Reports no additional complaints Psych Reports no additional complaints Physical Exam Const General: healthy appearing, comfortable, no acute distress, alert and awake Orientation/consciousness: patient oriented x3 HEENT Head: Yes normal to inspection General nose exam: No nasal polyps present and No nasal discharge present Face and sinus: Yes sinuses nontender Mouth: oropharynx normal Throat: Yes posterior oropharynx normal Eyes General: appearance normal, both eyes and all related structures Neck Neck: Yes normal visual inspection, Yes no lymphadenopathy, Yes trachea midline and Yes no JVD Thyroid: Thyroid normal Chest Chest palpation & inspection: normal inspection of the chest, normal palpation of entire chest wall and no tenderness Breast/axilla inspection: Other (Port-A-Cath site in right pectoral area) Resp Other: Percussion note hyper-resonant. Breath sounds are slightly distant with prolonged expiratory phase. No wheezes or rhonchi . No creps. Cardio Palpation: normal PMI Rate: regular rate Rhythm: regular rhythm Heart sounds: no gallops and no murmurs Peripheral pulses: Peripheral pulses 2+ throughout GI Palpation (GI): Soft to palpation, nontender, No hepatosplenomegaly present and no masses Auscultation: normal bowel sounds Back/Spine/Pelvis Thoracic/Lumbar Spine: thoracic and lumbar spine normal to inspection Skin General skin exam: no rashes or lesions noted Neuro General: patient oriented x3 and no focal motor deficits Cranial nerves: Yes CN's II-XII intact bilaterally Extrem General: Yes normal to inspection, Yes no clubbing, cyanosis or edema and Yes no calf tenderness Psych Appearance: grossly normal and well kempt Speech and movement: Normal speech and movement present Assessment & Plan Assessment & Plan (1) COPD (chronic obstructive pulmonary disease): Comment: Chronic obstructive pulmonary disease, mild to moderately severe and stable, Code(s): J44.9 - Chronic obstructive pulmonary disease, unspecified Category: Medical Plan: Continue to use Breo Ellipta 100-25 1 inhalation daily Albuterol solution in the nebulizer once or twice a day as needed. Albuterol HFA 2 puffs Q 6 hours p.r.n. especially when outdoors. (2) Smoker: Comment: Past history of smoking for 45 pack years. Quit in 2022 Currently smoking about 4-5 cigarettes a day. Code(s): F17.200 - Nicotine dependence, unspecified, uncomplicated Category: Social Hx Plan: Counseled her to keep the number of cigarettes as low as possible (3) Hypoxemia: Comment: SHE DOES HAVE EXERCISE INDUCED HYPOXEMIA, AND USES O2 2 L/MINUTE ONLY P.R.N., AFTER ANY BOUT OF PHYSICAL EXERTION. 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 Yosef Wolff . Code(s): C80.1 - Malignant (primary) neoplasm, unspecified Category: Surgical Plan: Continue regular follow-up with oncology service. Coding Level of Care Code Est Pt Level 3 (73165) Diagnoses COPD (chronic obstructive pulmonary disease) J44.9 Smoker F17.200 Hypoxemia R09.02 Small cell carcinoma C80.1
--- OUTSIDE RECORDS SUMMARY | 2024-09-10 10:07 | XMS_ITS | Encounter Summary ---
Author Organization [employer] Address [address] [facility] 7t [place] [address] Care Team Providers Care Flooring Grader Name Role Phone Sarah Mathews MD Primary Care Provider [phone] Reason for Visit * Reason Comments Cough fu Encounter Details Date Type Department Care Team ([facility] Contact Info) Description 08/26/2024 10:45 AM EST Office Visit [facility] CHC MED & PEDS [address] [place], [place] [phone] Sarah Mathews MD [address] [place], [place] [phone] Chronic obstructive pulmonary disease, unspecified COPD type [...] Upcoming Encounters Date Type Department Care Team ([facility] st Contact Info) Description 09/28/2024 10:00 AM EDT Office Visit [facility] MED & PEDS [address] [place] [address] Sarah Mathews MD [address] [place] [address] documented as of this encounter Procedures Procedure Name Priority Date/Time Associated Diagnosis Comments XR CHEST 2 VIEWS Routine 08/26/2024 11:4 4 AM EST Chronic obstructive pulmonary disease, unspecified COPD type (CMS/HCC) documented in this encounter Results * XR Chest 2 Views (08/26/2024 11:44 AM EST) Anatomical Region Laterality Modality Chest Radiographic Preeti ging 08/26/2024 11:4 4 AM EST Narrative 08/28/2024 3:04 PM EST ? [facility] ?[address] ?[place] [address] ?XRay Report ? Signed ? Patient: Emerita,Janine ?MR#: [id number] ?? 34 ? : 1940 ?Acct:[id number] ? Age/Sex: 84 / F ?ADM Date: 08/26/24 ? Loc: HO.XRAY ? Attending Dr: Sarah Mathews MD ? Ordering Physician: Sarah Mathews MD ?? Date of Service: 08/26/24 ?? Procedure(s): XR chest 2V ?? Accession Number(s): [id number] ? cc: Yosef Wolff MD; Sarah Mathews MD ? EXAMINATION: ??XR CHEST 2 VIEWS ? HISTORY: COPD ? COMPARISON: Comparison is made with the prior examination dated ?? 08/03/2024. ? FINDINGS: ??PA and lateral views of the chest are submitted. A ?? right-sided port is unchanged in position. There is scarring in the ?? right upper lobe. The lungs are otherwise clear. ??There is no pleural ?? effusion, pneumothorax, or pulmonary vascular congestion. ??The heart is ?? normal in size. The aorta is tortuous. 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 ? XR/XR chest 2V ?? IMPRESSION: ?? No acute cardiopulmonary abnormality. ? Electronically signed by: ??Jean Marie Smith MD ??08/28/2024 03:02 PM EST ?? RP ? Dictated By: ?Jean Marie Smith MD ? Signed By: ?<Electronically signed by Jean Marie Smith MD in OV> ?08/28/24 1502 ? DD/ 1144 ? TD/TT: 08/26/24 1153 ? Traffic Observer: ? Procedure Note Umm Giraldo - 08/28/[address] [address] XRay Report Signed Patient: Vanesa Felder#: [id number] 33 : 2Acct:[id number] Age/Sex: 84 / FADM Date: 08/26/24 Loc: HO.XRAY Attending Dr: Sarah Mathews MD Ordering Physician: Sarah Mathews MD Date of Service: 08/26/24 Procedure(s): XR chest 2V Accession Number(s): [id number] cc: Yosef Wolff MD; Sarah Mathews MD EXAMINATION: XR CHEST 2 VIEWS HISTORY: COPD COMPARISON: Comparison is made with the prior examination dated 08/03/2024. FINDINGS: PA and lateral views of the chest are submitted. A right-sided port is unchanged in position. There is scarring in the right upper lobe. The lungs are otherwise clear. There is no pleural effusion, pneumothorax, or pulmonary vascular congestion. The heart is normal in size. The aorta is tortuous. There is degenerative disc disease of the spine. XR/XR chest 2V IMPRESSION: No acute cardiopulmonary abnormality. Electronically signed by: Jean Marie Smith MD 08/28/2024 03:02 PM EST RP Dictated By: Jean Marie Smith MD Signed By: <Electronically signed by Jean Marie Smith MD in OV> 08/28/24 1502 DD/ 1144 TD/TT: 08/26/24 1153 Traffic Observer: Sarah Mathews MD IMG XR PROCEDURES Final Result documented in this encounter Visit Diagnoses Diagnosis Chronic obstructive pulmonary disease, unspecified COPD type (CMS/HCC)- Primary documented in this encounter Additional Health Concerns Assessment Noted Time PHQ-9 Depression Total Score: 2 04/29/20 24 10:19 AM EST documented as of this encounter Care Teams Flooring Grader Relationship Specialty Start Date End Date Sarah Mathews MD [address] [place] [address] PCP - General Family Medicine 04/15/12 Juan BENITES 06/15/24 documented as of this encounter
--- OUTSIDE RECORDS SUMMARY | 2024-09-10 10:07 | XMS_ITS | Encounter Summary ---
Author Organization [employer] Address 75 [facility] 7t [place] [address] Care Team Providers Care Tanning Wheel Operator Name Role Phone Sarah Mathews MD Primary Care Provider Encounter Details Date Type Department Care Team (Latest Contact Info) Description 08/13/2024 10:30 AM EST Office Visit [facility] CHC MED & PEDS [address] [place], [place] [phone] Melanie Marlow MD [address] [place] [address] Smoker (Primary Dx); Chronic obstructive pulmonary disease, [...] 84 y.o. female who presents for follow-up [facility] hospitalization for acute bronchitis/COPD exacerbation from COVID [...] uses as needed. She is followed by license and permit specialist Dr. Soliz with whom she has [...] Chronic obstructive pulmonary disease, unspecified COPD type ([facility]) Comments: Spacer prescribed today to use with [...] 09/28/2024 10:00 AM EDT Office Visit [facility] MED & PEDS [address] [place] [address] Sarah Mathews MD [address] [place] [address] documented as of this encounter Visit Diagnoses Diagnosis Smoker- Primary Tobacco use disorder Chronic obstructive pulmonary disease, unspecified COPD type (CMS/[facility]) Hypoxemia Atherosclerotic cardiovascular disease documented in this encounter Additional Health Concerns Assessment Noted Time PHQ-9 Depression Total Score: 2 04/29/20 24 10:19 AM EST documented as of this encounter Care Teams Tanning Wheel Operator Relationship Specialty Start Date End Date Sarah Mathews MD [address] [place] [address] PCP - General Family Medicine 04/15/12 Juan BENITES 06/15/24 documented as of this encounter
--- OUTSIDE RECORDS SUMMARY | 2024-09-10 10:07 | XMS_ITS | Encounter Summary ---
Author Organization [employer] Address 75 [facility] 7t [place] [address] Care Team Providers Care Dividing Machine Operator Name Role Phone Sarah Mathews MD Primary Care Provider [phone] Reason for Visit * Reason Onset Date Comments Hospital Follow-up 08/05/2024 Encounter Details Date Type Department Care Team ([facility] st Contact Info) Description 08/05/2024 Telephone [facility] MEDICINE [address] [place] [address] Sarah Mathews MD [address] [place], [place] [phone] Hospital Follow-up Social History Tobacco Use Types [...] from pt requesting a HDF appt. Hospital: [facility] Date of admission: 08/03/2024 Discharge date: 08/05/2024 Diagnosed: Respiratory Problems and UTI *Send message to [facility] Clinical Care Coordinators documented in this encounter Plan of Treatment Upcoming Encounters Date Type Department Care Team (Late st Contact Info) Description 09/28/2024 10:00 AM EDT Office Visit [facility] CHC MED & PEDS [address] [place] [address] Sarah Mathews MD [address] [place] [address] documented as of this encounter Visit Diagnoses Not on filedocumented in this encounter Additional Health Concerns Assessment Noted Time PHQ-9 Depression Total Score: 2 04/29/20 24 10:19 AM EST documented as of this encounter Care Teams Dividing Machine Operator Relationship Specialty Start Date End Date Sarah Mathews MD [address] [place] [address] PCP - General Family Medicine 04/15/12 [facility] documented as of this encounter
--- OUTSIDE RECORDS SUMMARY | 2024-09-10 10:07 | XMS_ITS | Encounter Summary ---
Author Organization [employer] Address [address] [facility] 7t [place] [address] Care Team Providers Care Health And Fitness Professor Name Role Phone Sarah Mathews MD Primary Care Provider [phone] Reason for Visit * Reason Onset Date Comments Medication Question 07/29/2024 Encounter Details Date Type Department Care Team ([facility] st Contact Info) Description 07/29/2024 Telephone C CHC MED & PEDS [address] [place], [place] [phone] Sarah Mathews MD [address] [place], [place] [phone] Medication Question Social History Tobacco Use Types [...] give Pt 10 mg. Contact pt at [phone] * Telephone Encounter - Abel Rutledge - 07/30/2024 4:08 PM EST Tc from Pt daughter requesting that 10 mg furosemide (Lasix) could be sent to [id number] [facility]. Pt daughter is also waiting for call to schedule and endogram for pt. Daughter Contact: [phone] * Telephone Encounter - Sarah Mathews MD - 07/29/2024 6:33 PM EST Please send verbal order of 10mg.PSYCHIATRIC does not let me send 10mg * Telephone Encounter - Melissa Kirby - 07/29/2024 12:15 PM EST Tc from pt daughter Lamar calling to inform went to pickle pumper medication furosemide (Lasix) 20 MG tablet but was advised by a pharmacist to contact pcp office to switch script over to 10 mg instead of 20 mg so that its easier to spilt medication in half. Any further questions please contact phone # [phone] documented in this encounter Plan of Treatment Upcoming Encounters Date Type Department Care Team ([facility] st Contact Info) Description 09/28/2024 10:00 AM EDT Office Visit [facility] CHC MED & PEDS [address] [place] [address] Sarah Mathews MD [address] [place] [address] documented as of this encounter Visit Diagnoses Not on filedocumented in this encounter Additional Health Concerns Assessment Noted Time PHQ-9 Depression Total Score: 2 04/29/20 24 10:19 AM EST documented as of this encounter Care Teams Health And Fitness Professor Relationship Specialty Start Date End Date Sarah Mathews MD [address] [place] [id number] PCP - General Family Medicine 04/15/12 Juan BENITES 06/15/24 documented as of this encounter
--- OUTSIDE RECORDS SUMMARY | 2024-09-10 10:07 | XMS_ITS | Encounter Summary ---
Author Organization [employer] Address [address] [facility] 7t [place] [address] Care Team Providers Care Military Communications Specialist Name Role Phone Sarah Mathews MD Primary Care Provider [phone] Encounter Details Date Type Department Care Team [...] Description 09/28/2024 10:00 AM EDT Office Visit [facility] MED & PEDS [address] [place] [address] Sarah Mathews MD [address] [place] [address] documented as of this encounter Visit Diagnoses Not on filedocumented in this encounter Additional Health Concerns Assessment Noted Time PHQ-9 Depression Total Score: 2 04/29/20 24 10:19 AM EST documented as of this encounter Care Teams Military Communications Specialist Relationship Specialty Start Date End Date Sarah Mathews MD [address] [place] [address] PCP - General Family Medicine 04/15/12 Juan BENITES 06/15/24 documented as of this encounter
--- OUTSIDE RECORDS SUMMARY | 2024-09-10 10:07 | XMS_ITS | Encounter Summary ---
Author Organization [employer] Address [address] [facility] 7t [place] [address] Care Team Providers Care Lining Stitcher Name Role Phone Sarah Mathews MD Primary Care Provider [phone] Reason for Visit * Reason Comments Transition Of Care (Tcm) HDF- scheduled Encounter Details Date Type Department Care Team ([facility] Contact Info) Description 08/05/2024 Patient Outreach [facility] CHC MED & PEDS [address] [place], [place] [phone] Sarah Mathews MD [address] [place] [address] Transition Of Care (Tcm) (HDF- scheduled ) [...] elevated BNP and echo results done at [facility] on 08/05/24. Uploaded both results to pt's [...] Admission/Visit 08/03/24 Date of Discharge 08/03/24 Facility [facility] Diagnosis Respiratory Problems and UTI Disposition Discharged [...] Wednesdays, and Walk-In Urgent Care Located in [facility] of [facility]. Patient provided with after-hours line for [facility], , which offer night time triage service and option to transfer to web content specialist provider if needed. CC will request Discharge summary to be scanned intochart. documented in this encounter Plan of Treatment Upcoming Encounters Date Type Department Care Team ([facility] st Contact Info) Description 09/28/2024 10:00 AM EDT Office Visit [facility] MED & PEDS [address] [place] [address] Sarah Mathews MD [address] [place] [address] documented as of this encounter Visit Diagnoses Not on filedocumented in this encounter Additional Health Concerns Assessment Noted Time PHQ-9 Depression Total Score: 2 04/29/20 24 10:19 AM EST documented as of this encounter Care Teams Lining Stitcher Relationship Specialty Start Date End Date Sarah Mathews MD [address] [place] [id number] PCP - General Family Medicine 04/15/12 Juan Daniella 06/15/24 documented as of this encounter
--- OUTSIDE RECORDS SUMMARY | 2024-09-10 10:07 | XMS_ITS | Encounter Summary ---
Author Organization [employer] Address [address] [facility] 7t [place] [address] Care Team Providers Care Brazer Production Line Name Role Phone Sarah Mathews MD Primary Care Provider [phone] Encounter Details Date Type Department Care Team [...] [facility] MED & PEDS [address] [place] [address] Sarah Mathews MD [address] [place] [address] documented as of this encounter Visit Diagnoses Not on filedocumented in this encounter Additional Health Concerns Assessment Noted Time PHQ-9 Depression Total Score: 2 04/29/20 24 10:19 AM EST documented as of this encounter Care Teams Brazer Production Line Relationship Specialty Start Date End Date Sarah Mathews MD [address] [place] [address] PCP - General Family Medicine 04/15/12 Juan BENITES 06/15/24 documented as of this encounter
--- OUTSIDE RECORDS SUMMARY | 2024-09-10 10:07 | XMS_ITS | Clinical Summary ---
Author Organization [employer] Address [address] [facility] [address] [place] [address] Care Team Providers Care Dentist Name Role Phone Sarah Mathews MD Primary Care Provider [phone] Allergies No known active allergies Medications ALPRAZolam (Xanax) 0.25 MG tablet Take 0.25 mg by mouth if needed in the morning and at bedtime for anxiety. 05/11/20 23 Active Multiple Vitamins-Mineral s (CENTRUM SILVER 50+WOMEN PO) Purchases OTC- Take 1 tablet by mouth once daily Active pravastatin (Pravachol) 20 MG tablet TAKE 1 TABLET BY MOUTH EVERY NIGHT AT BEDTIME 90 tablet 1 01/23/20 24 Active levothyroxine (Synthroid, Levoxyl) 125 MCG tablet Take by mouth before breakfast. Active gemfibrozil (Lopid) 600 MG tabletIndication s:Primary hypertension Take 1 tablet (600 mg) by mouth 2 times daily. 90 tablet 3 04/29/20 24 025 Active albuterol (ProAir HFA) 108 (90 Base) MCG/ACT inhaler Inhale 2 puffs every 4 (four) hours if needed for wheezing. 18 g 3 04/29/20 24 Active Blood Pressure kit 1 Units Once per day. 1 kit 07/01/19 25 Active furosemide (Lasix) 20 MG tablet Take 0.5 tablets (10 mg) by mouth Once per day. 15 tablet 11 08/02/19 25 026 Active albuterol (2.5 MG/3ML) 0.083% nebulizer solution INHALE 1 VIAL EVERY 4 HOURS NEEDED FOR SHORTNESS OF BREATH 08/05/19 25 Active Spacer/Aero-Hold ing Chambers device Use spacer with albuterol inhaler 1 Device 1 08/13/19 25 Active Dextromethorphan -guaiFENesin (Mucinex DM) 30-600 MG tablet sustained-releas e 12 hour Use 1 tab TID 28 tablet 08/27/19 25 Active Fluticasone Furoate-Vilanter ol (Breo Ellipta) 100-25 MCG/ACT aerosol powder Inhale 100 mg Once per day. 28 each 3 08/27/19 25 Active azithromycin (Zithromax Z-Bautista) 250 MG tabletIndication s:COPD exacerbation (CMS/HCC) Take 2 tablets once on day 1, then 1 tablet once a day for 4 days. 6 tablet 07/28/19 25 025 Discontinued predniSONE (Deltasone) 10 MG tablet 40 mg by mouth daily for 3 days 30 mg by mouth daily for 3 days 20 mg by mouth daily for 3 days 10 mg by mouth daily for 3 days 08/05/19 25 025 Salmeterol Xinafoate (Serevent Diskus) 50 MCG/ACT aerosol powderIndication s:Chronic obstructive pulmonary disease, unspecified COPD type (CMS/HCC) Inhale 1 Act (50 mcg) 2 times daily. 60 each 11 08/13/19 25 025 Discontinued Active Problems Problem Noted [...] 08/26/2024 10:45 AM EST Office Visit [facility] [address] [place] [address] Sarah Mathews MD Chronic obstructive pulmonary disease, unspecified COPD type (CMS/HCC) (Primary Dx) 08/26/2024 Travel 08/25/2024 Telephone [facility] [address] [place] [address] Sarah Mathews MD Chart Prep 08/13/2024 10:30 AM EST Office Visit [facility] [address] [place] [address] Melanie Marlow MD Smoker (Primary Dx); Chronic obstructive pulmonary disease, unspecified COPD type (CMS/HCC); Hypoxemia; Atherosclerotic cardiovascular disease 08/13/2024 Travel 08/13/2024 Telephone [facility] [address] [place] [address] Melanie Marlow MD 08/12/2024 Telephone [facility] [address] [place] [address] Sarah Mahtews MD ECHO ORDER 08/12/2024 Orders Only [facility] [address] [place] [address] Sarah Mathews MD Edema leg (Primary Dx) 08/06/2024 Telephone [facility] [address] [place] [address] Bienvenido Canela MD 08/05/2024 Patient Outreach [facility] [address] [place] [address] Sarah Mathews MD Transition Of Care (Tcm) (HDF- scheduled ) 08/05/2024 Telephone [facility] [address] [place] [phone] Sarah Mathews MD Hospital Follow-up 08/03/2024 Orders Only GENERIC EXTERNAL DATA DEPARTMENT Provider, Generic External Data 07/29/2024 10:45 AM EST Office Visit [facility] [address] [place] [address] Sarah Mathews MD Edema leg (Primary Dx); Primary hypertension; Chronic obstructive pulmonary disease, unspecified COPD type (CMS/HCC) 07/29/2024 Orders Only [facility] [address] [place] [address] Sarah Mathews MD 07/29/2024 Telephone [facility] [address] [place] [address] Sarah Mathews MD Medication Question 07/29/2024 Travel 07/28/2024 4:00 PM EST Office Visit [facility] [address] [place] [phone] Sue Hooper MD COPD exacerbation ([facility]) (Primary Dx); Cough, unspecified type 07/28/2024 Telephone [facility] [address] [place] [address] Sarah Mathews MD Nurse Triage 07/22/2024 Patient Outreach [facility] [address] [place] [address] Sarah Mathews MD Pre-visit Planning (SDOH negative, Tobacco screening negative. ) 07/20/2024 Telephone [facility] [address] [place] [address] Sarah Mathews MD FYI 07/08/2024 2:00 PM EST Clinical Support [facility] [address] [place] [address] Jose David Huff, FERNANDA Idiopathic hypotension 07/08/2024 Travel 07/01/2024 2:40 PM EST Office Visit [facility] [address] [place] [address] Sandra Francois MD Idiopathic hypotension (Primary Dx); Cough, unspecified type 07/01/2024 Travel 07/01/2024 Telephone [facility] [address] [place], [place] [phone] Sarah Mathews MD Nurse Triage 06/16/2024 Telephone [facility] [address] [place], [place] [phone] Sarah Mathews MD FYI from Last 3 Months Immunizations Name Administration [...] 09/28/2024 10:00 AM EDT Office Visit [facility] [address] [facility] [place] [address] Sarah Mathews MD [address] [facility] [place] [address] Health Maintenance Due Date Last Done Comments Zoster Vaccines (2 of 3) 08/21/2015 06/26/2015 [...] patient's age to complete this topic Hepatitis A Vaccines Aged Out No long er eligible [...] obstructive pulmonary disease, unspecified COPD type (CMS/HCC) HIGH SENSITIVITY TROPONIN I Routine 08/03/2024 11:52 [...] CONTRAST Routine 07/02/2024 1 0:35 AM EST LIPID PANEL, STANDARD Routine 05/09/2024 8:09 AM EST Primary hypertension Hypothyroidism, unspecified type from Last 3 Months or Most Recently Relevant to Health Maintenance Results * XR Chest 2 Views (08/26/2024 11:44 AM EST) Only the most recent of2 resultswithin the time period is included. Anatomical Region Laterality Modality Chest Radiographic Preeti ging 08/26/2024 11:4 4 AM EST Narrative 08/28/2024 3:04 PM EST ? [place] [facility] ?[address] ?[place] [address] ?XRay Report ? Signed ? Patient: Emerita,Janine ?MR#: [id number] ?? 34 ? : 1940 ?Acct:[id number] ? Age/Sex: 84 / F ?ADM Date: 08/26/24 ? Loc: HO.XRAY ? Attending Dr: Sarah Mathews MD ? Ordering Physician: Sarah Mathews MD ?? Date of Service: 08/26/24 ?? Procedure(s): XR chest 2V ?? Accession Number(s): [id number] ? cc: Yosef Wolff MD; Sarah Mathews [...] DD/ 1144 ? TD/TT: 08/26/24 1153 ? Chief Revenue Officer: ? Procedure Note Enzo, Image - 08/28/[address] [address] XRay Report Signed Patient: Vanesa Felder#: [id number] 33 : 2Acct:[id number] Age/Sex: 84 / FADM Date: 08/26/24 Loc: RAJNI Attending Dr: Sarah Mathews MD Ordering Physician: Sarah Mathews MD Date of Service: 08/26/24 Procedure(s): XR chest 2V Accession Number(s): [id number] cc: Yosef Wolff MD; Sarah Mathews MD [...] Marie Smith MD 08/28/2024 03:02 PM EST Dictated By: Jean Marie Smith MD Signed By: <Electronically signed by Jean Marie Smith MD in OV> 08/28/24 1502 DD/ 1144 TD/TT: 08/26/24 1153 Chief Revenue Officer: us Sarah Mathews MD IMG XR PROCEDURES Final Result * High Sensitivity Troponin I (08/03/2024 11:52 AM EST) [facility] TROPONIN I HIGH SENSITIVITY 4.0 <3.5 - 17.0 ng/L [facility] Comment:The Chávez high sens itivity Troponin-I results should beused in conjunction with other diagnostic information suchas ECG, clinical observations and information, and patientsymptoms to aid in the diagnosis of [place]. 08/03/2024 11:5 2 AM EST 08/03/2024 11:58 AM EST us Generic External Data Provider LAB BLOOD ORDERAB LES Final Result [facility] [address] [place] [phone] * SARS-CoV-2 RNA, Influenza A/B, and RSV RNA, Ql NAAT (08/03/2024 11:52 AM EST) Influenza A PCR NEGATIVE Negative [facility] Influenza B PCR NEGATIVE Negative [facility] Resp Syncy Virus RNA Qual PCR NEGATIVE Negative [facility] SARS COV2 PCR NEGATIVE Negative [facility] Comment:All test results mus t [...] use by authorized laboratories.Testing performed on the [employer] GeneXpert utilizingreal-time RT-PCR.All SARS CoV2 and positive influenza A/B results arereported to [facility]. 08/03/2024 11:5 2 AM EST 08/03/2024 12:00 PM EST us Generic External Data Provider LAB MICROBIOLOGY - GENERAL ORDERABLES Final Result [facility] [address] [place] [phone] * (ABNORMAL) CBC auto differential (08/03/2024 11:52 AM EST) White Blood Count 9.6 4.8 - 10.8 X10*3/uL [facility] Red Blood Count 3.46(L) 4.20 - 5.50 X10*6/uL [facility] Hemoglobin 11.6(L) 12.0 - 16.0 g/dl [facility] Hematocrit 37.6 37.0 - 47.0 % [facility] Mean Corpuscular Volume 108.7(H) 80.0 - 98.0 fL [facility] Mean Corpuscular Hemoglobin 33.5(H) 27.0 - 33.0 pg [facility] Mean Corpuscular HGB Conc 30.9(L) 31.0 - 35.0 g/dl [facility] Red Cell Distribution Width 15.3 11.0 - 16.0 % [facility] Platelet Count 194 160 - 400 X10*3/uL [facility] Mean Platelet Volume 9.7 9.4 - 12.3 fL [facility] Neutrophils Percent Auto 82.8(H) 45 - 73 % [facility] Imm Gran Pct Auto 2.2(H) 0.0 - 0.4 % [facility] Lymphocytes Percent Auto 6.8(L) 20 - 40 % [facility] Monocytes Percent Auto 7.3 2 - 11 % [facility] Eosinophils Percent Auto 0.5 0 - 4 % [facility] Basophils Percent Auto 0.4 0 - 2 % [facility] NRBC Pct Auto 0.0 0.0 - 0.2 /100WBC [facility] Neutrophils Absolute Auto 8.0 2.0 - 8.3 x10*3/uL [facility] Imm Gran Abs Auto 0.21(H) 0.00 - 0.03 X10*3/uL [facility] Lymphocytes Absolute Auto 0.7(L) 1.2 - 4.9 X10*3/uL [facility] Monocytes Absolute Auto 0.7 0.1 - 1.2 X10*3/uL [facility] Eosinophils Absolute Auto 0.1 0.0 - 0.4 X10*3/uL [facility] Basophils Absolute Auto 0.0 0.0 - 0.2 X10*3/uL [facility] NRBC Abs Auto 0.000 0.0 - 0.012 X10*3/uL [facility] 08/03/2024 11:5 2 AM EST 08/03/2024 11:58 AM EST us Generic External Data Provider LAB BLOOD ORDERAB LES Final Result [facility] [address] [place] [address] [phone] * Magnesium (08/03/2024 11:52 AM EST) Magnesium 2.0 1.6 - 2.6 mg/dL [facility] 08/03/2024 11:5 2 AM EST 08/03/2024 11:58 AM EST us Generic External Data Provider LAB BLOOD ORDERAB LES Final Result [facility] [address] [place] [address] [phone] * (ABNORMAL) Comprehensive Metabolic Panel (08/03/2024 11:52 AM EST) Sodium 143 135 - 145 mmol/L [facility] Potassium 3.9 3.3 - 5.1 mmol/L [facility] Chloride 107 96 - 108 mmol/L [facility] Carbon Dioxide 29 22 - 29 mmol/L [facility] Anion Gap 11(L) 12 - 20 [facility] Urea Nitrogen (BUN) 28(H) 9 - 16 mg/dL [facility] Creatinine, Serum 0.94 0.5 - 1.4 mg/dL [facility] Creatinine Clr Calc Pharmacy 39.1 [facility] Comment:Provided height and weight: 162.56 cm,56.245 kg.eGFR (calculated from the MDRD study equation) and eCrCl(calculated from the Cockcroft-Gault equation) are based ondifferent parameters and may not yield comparable results.If eCrCl result is absurd, please check patient'sheight/weight. Estimated Glomerular Filt Rate 57 [facility] Comment:Chronic Kidney Disea se: Estimated GFR < 60 mL/min/1.23i7Nrcuti Kidney Disease: Estimated GFR < 15 mL/min/1.73m2 Glucose 95 60 - 115 mg/dL [facility] Calcium 8.8 8.4 - 10.2 mg/dL [facility] Bilirubin, Total 0.3 0.0 - 1.0 mg/dL [facility] Aspartate Amino Transferase 19 5 - 31 U/L [facility] Alanine Aminotransferase <6 0 - 31 U/L [facility] Total Protein 6.7 6.5 - 8.0 g/dL [facility] Albumin Level 3.7 3.5 - 5.0 g/dL [facility] Alkaline Phosphatase 67 39 - 117 U/L [facility] 08/03/2024 11:5 2 AM EST 08/03/2024 11:58 AM EST us Generic External Data Provider LAB BLOOD ORDERAB LES Final Result Performing Organization Address [facility] de Phone Number [facility] [address] [place] [address] [phone] * HOLD LT BLUE - POSSIBLE COAG (08/03/2024 11:50 AM EST) Hold Lt Blue - Possible Coag SEE NOTE [facility] Comment:Specimen will be hel d untested for 4 hours. Call Hematologyif testing is desired. 08/03/2024 11:5 0 AM EST 08/03/2024 12:02 PM EST Generic External Data Provider LAB BLOOD ORDERAB LES Final Result Performing Organization Address [facility] de Phone Number [facility] [address] [place] [address] [phone] * XR Chest 1 View (08/03/2024 11:00 AM EST) Anatomical Region Laterality Modality Chest Radiographic Preeti ging 08/03/2024 11:0 0 AM EST Narrative 08/03/2024 11:26 AM EST ? [facility] ?[address] ?[place] [address] ?XRay Report ? Signed ? Patient: Emerita,Janine ?MR#: [id number] ?? 34 ? : 1940 ?Acct:[id number] ? Age/Sex: 84 / F ?ADM Date: 02/10/25 ? Loc: HO.ED ? Attending Dr: ? Ordering Physician: Mery Reinoso ?? Date of Service: 08/03/24 ?? Procedure(s): XR chest 1V ?? Accession Number(s): [id number] ? cc: Mery Reinoso; Sarah Mathews MD [...] DD/ 1100 ? TD/TT: 08/03/24 1110 ? Chief Revenue Officer: MSM ? Procedure Note Donjonel, Image - 08/03/2024 [place] [address] XRay Report Signed Patient: Vanesa Felder#: [id number] 34 : 2Acct:[id number] Age/Sex: 84 / FADM Date: 08/03/24 Loc: HO.ED Attending Dr: Ordering Physician: Mery Reinoso Date of Service: 08/03/24 Procedure(s): XR chest 1V Accession Number(s): [id number] cc: Mery Reinoso; Sarah Mathews MD EXAMINATION: [...] 08/03/24 1124 DD/ 1100 TD/TT: 08/03/24 1110 Chief Revenue Officer: SAMMY [facility] External Provider IMG XR PROCEDURES Final Result * POCT Rapid Influenza B CHÁVEZ ID NOW (07/28/2024 1:36 PM EST) [facility] Influenza B Negative Negative, Indeterminate [facility] Swab 07/28/2024 1:36 PM EST Sue Hooper MD POINT OF CARE TEST ENTER/EDIT ORDERABLES Final Result Performing Organization Address [facility] Phone Number [facility] [address] [place] [phone] * POCT Rapid Influenza A CHÁVEZ ID NOW (07/28/2024 1:36 PM EST) [facility] Influenza A Negative Negative, Indeterminate [facility] Swab 07/28/2024 1:36 PM EST Sue Hooper MD POINT OF CARE TEST ENTER/EDIT ORDERABLES Final Result Performing Organization Address [facility] Phone Number [facility] [address] [place] [phone] * POCT Rapid Covid-19 BinaxNOW (07/28/2024 1:21 PM EST) [facility] Rapid COVID Ag Negative Swab 07/28/2024 1:21 PM EST Sue Hooper MD POINT OF CARE TEST ENTER/EDIT ORDERABLES Final Result * CT Chest w/ Contrast (07/02/2024 10:35 AM EST) Anatomical Region Laterality Modality Body, Chest Computed Tomogra phy 07/02/2024 10:3 5 AM EST Narrative 07/02/2024 12:11 PM EST ? [facility] ?[address] ?[place] [address] ? CT Scan Report ? Signed ? Patient: Emerita,Janine ?MR#: [id number] ?? 34 ? : 1940 ?Acct:[id number] ? Age/Sex: 83 / F ?ADM Date: 07/02/24 ? Loc: HO.CT ? Attending Dr: Yosef Wolff MD ? Ordering Physician: Yosef Wolff MD ?? Date of Service: 07/02/24 ?? Procedure(s): CT chest w IV con ?? Accession Number(s): [id number] ? cc: Yosef Wolff MD; Sarah Mathews MD ? Report Number: ?? [id number]: Total DLP = ?? 85.00 mGy-cm ?? [...] DD/ 1035 ? TD/TT: 07/02/24 1103 ? Chief Revenue Officer: ? Procedure Note Enzo, Image - 07/02/[address] [address] [address] Scan Report Signed Patient: Vanesa Felder#: [id number] 34 : 2Acct:[id number] Age/Sex: 83 / FADM Date: 07/02/24 Loc: HO.CT Attending Dr: Yosef Wolff MD Ordering Physician: Yosef Wolff MD Date of Service: 07/02/24 Procedure(s): CT chest w IV con Accession Number(s): [id number] cc: Yosef Wolff MD; Sarah Mathews MD Report Number: [id number]: Total DLP = 85.00 mGy-cm EXAMINATION: CT [...] 07/02/24 1208 DD/ 1035 TD/TT: 07/02/24 1103 Chief Revenue Officer: [facility] External Provider IMG CT PROCEDURES Final Result * Lipid Panel, Standard (05/09/2024 8:09 AM EST) Triglycerides 48 <150 mg/dL [facility] Comment:Desirable Triglyceri de: less than 150 mg/dLBorderline High Triglyceride 150-199 mg/dLHigh Triglyceride: 200-499 mg/dLVery High Triglyceride: greater than or equal to 5OO mg/dL Cholesterol 158 <200 mg/dL [facility] Comment:Desirable Cholestero l: less than 200 mg/dLBorderline High Cholesterol: 200-239 mg/dLHigh Cholesterol: greater than 239 mg/dL LDL Cholesterol Calculated 82 <100 mg/dL [facility] Comment:Desirable LDL: less than 100 mg/dLNear Optimal/Above Optimal LDL: 110- 129 mg/dLBorderline High LDL: 130-159 mg/dLHigh LDL: 160-189 mg/dLVery High LDL: greater than or equal to 190 mg/dL HDL Cholesterol 67 >40 mg/dL [facility] Comment:Desirable HDL: great er than 40 mg/dL Note: This HDL assay may give artificially low results in patients with liver disease. Blood Venous blood specimen / Unknown 05/09/2024 8:09 AM EST 05/09/2024 8:09 AM EST Sarah Mathews MD LAB BLOOD ORDERABLES Final Resul t [facility] [address] [place] [phone] from Last 3 Months or Most Recently Relevant to Health Maintenance Insurance [place] HSN FULL IRA [facility] MEDICARE ADVANTAGE HMO * Guarantor: Janine Felder Account Type Relation to Patient Date of Phone Billing Address Personal/Family Self [place], [place] Care Teams Dentist Relationship Specialty Start Date End Date Sarah Mathews MD [address] [place] [phone] PCP - General Family Medicine 04/15/12 Juan A 06/15/24
--- OUTSIDE RECORDS SUMMARY | 2024-09-10 10:07 | XMS_ITS | Encounter Summary ---
Author Organization [employer] Address [address] [facility] 7[address] [place] [address] Care Team Providers Care Green Ware Caster Name Role Phone Sarah Mathews MD Primary Care Provider [phone] Reason for Visit * Reason Comments Med Refill Encounter Details Date Type Department Care Team ([facility] st Contact Info) Description 02/09/2024 Refill [facility] [address] [place] [address] Sarah Mathews MD [address] [place], [place] [phone] Primary hypertension Social History Tobacco Use Types [...] 10:00 AM EDT Office Visit [facility] [address] [place] [address] Sarah Mathews MD [address] [place] [address] documented as of this encounter Visit Diagnoses Diagnosis Primary hypertension Unspecified essential hypertension documented in this encounter Care Teams Green Ware Caster Relationship Specialty Start Date End Date Sarah Mathews MD [address] [place] [phone] PCP - General Family Medicine 04/15/12 Juan Daniella 06/15/24 documented as of this encounter
--- OUTSIDE RECORDS SUMMARY | 2024-09-10 10:07 | XMS_ITS | Encounter Summary ---
Author Organization [employer] Address [address] [facility] [address]t [place] [address] Care Team Providers Care Assistant Family Teacher Name Role Phone Sarah Mathews MD Primary Care Provider [phone] Reason for Visit * Reason Onset Date Comments ECHO ORDER 08/12/2024 Encounter Details Date Type Department Care Team ([facility] Contact Info) Description 08/12/2024 Telephone [employer] [facility] [address] [place] [address] Sarah Mathews MD [address] [place] [address] ECHO ORDER Social History Tobacco Use Types [...] 08/12/2024 2:53 PM EST Incoming fax from [facility], Patient had this test performed during Inpatient admission at [facility]. Please contact Health Information Management dept. at [facility] for report and advise if this test is still needed. Please be advised thatpatient will not be contacted until a response is received from the office. documented in this encounter Plan of Treatment Upcoming Encounters Date Type Department Care Team ([facility] st Contact Info) Description 09/28/2024 10:00 AM EDT Office Visit [facility] [address] [place] [address] Sarah Mathews MD [address] [place] [address] documented as of this encounter Visit Diagnoses Not on filedocumented in this encounter Additional Health Concerns Assessment Noted Time PHQ-9 Depression Total Score: 2 04/29/20 24 10:19 AM EST documented as of this encounter Care Teams Assistant Family Teacher Relationship Specialty Start Date End Date Sarah Mathews MD [address] [place] [phone] PCP - General Family Medicine 04/15/12 Juan BENITES 06/15/24 documented as of this encounter
--- OUTSIDE RECORDS SUMMARY | 2024-09-10 10:07 | XMS_ITS | Encounter Summary ---
Author Organization [employer] Address [address] [facility] 7t [place] [address] Care Team Providers Care Crm Architect Name Role Phone Sarah Mathews MD Primary Care Provider [phone] Encounter Details Date Type Department Care Team ([facility] st Contact Info) Description 08/13/2024 Telephone [employer] [facility] [address] [place] [address] Melanie Marlow MD [address] [place], [place] [phone] Social History Tobacco Use Types Packs/Day Years [...] Description 09/28/2024 10:00 AM EDT Office Visit [facility] [address] [place] [address] Sarah Mathews MD [address] [place] [address] documented as of this encounter Visit Diagnoses Not on filedocumented in this encounter Additional Health Concerns Assessment Noted Time PHQ-9 Depression Total Score: 2 04/29/20 24 10:19 AM EST documented as of this encounter Care Teams Crm Architect Relationship Specialty Start Date End Date Sarah Mathews MD [address] [place] [phone] PCP - General Family Medicine 04/15/12 Juan BENITES 06/15/24 documented as of this encounter
--- OUTSIDE RECORDS SUMMARY | 2024-09-10 10:07 | XMS_ITS | Encounter Summary ---
Author Organization [employer] Address 75 [facility] 7t [place] [address] Care Team Providers Care Shelter Supervisor Name Role Phone Sarah Mathews MD Primary Care Provider [phone] Reason for Referral * Consultation (Urgent) - Authorized Specialty Diagnoses / Procedures Referred By Contjenni t Referred To Contact Cardiology Diagnoses Edema leg Sarah Mathews MD [address] [place] [address] Phone: tel: fax: Shiraz Staton MD [address] [place] [address] Phone: tel: fax: Referral ID Status Reason Start Date Expiration Date Visits Requested Visits Authorized [id number] Authorized Specialty Services Required 08/12/2024 08/12/2025 1 1 Encounter Details Date Type Department Care Team (Late st Contact Info) Description 08/12/2024 Orders Only [facility] MED & PEDS [address] [place], [place] [phone] Sarah Mathews MD [address] [place], [place] [phone] Edema leg (Primary Dx) Social History Tobacco [...] Upcoming Encounters Date Type Department Care Team ([facility] st Contact Info) Description 09/28/2024 10:00 AM EDT Office Visit [facility] MED & PEDS [address] [place] [address] Sarah Mathews MD [address] [place] [address] Scheduled Referrals Name Type Priority Associated Diagnoses Order Schedule Referral to Cardiology Outpatient Referral Urgent Edema leg Expected: 08/12/2024 (Approximate), Expires: 08/12/2025 documented as of this encounter Visit Diagnoses Diagnosis Edema leg- Primary Edema documented in this encounter Additional Health Concerns Assessment Noted Time PHQ-9 Depression Total Score: 2 04/29/20 10:19 AM EST documented as of this encounter Care Teams Shelter Supervisor Relationship Specialty Start Date End Date Sarah Mathews MD [address] [place], [place] [address] [place] [address] PCP - General Family Medicine 04/15/12 Juan BENITES 06/15/24 documented as of this encounter
--- OUTSIDE RECORDS SUMMARY | 2024-09-10 10:08 | XMS_ITS | Encounter Summary ---
Author Organization [employer] Address [address] [place] [address] 7 [place] [address] Care Team Providers Care Embossing Machine Operator Name Role Phone Sarah Mathews MD Primary Care Provider Reason for Referral * Consultation (Routine) - Pending Review Specialty Diagnoses / Procedures Referred By Hernando t Referred To Contact Pharmacy Diagnoses Urinary tract infection without hematuria, site unspecified Tash Walker, PharmD [address] [place] [address] Phone: tel: fax: Referral ID Status Reason Start Date Expiration Date Visits Requested Visits Authorized [id number] Pending Review Continuity of Care 09/12/2023 09/11/2024 1 1 Encounter Details Date Type Department Care Team (Late st Contact Info) Description 09/12/2023 Orders Only [facility] MEDICINE [address] [place], [place] [phone] Tash Walker, PharmD [address] [place], [place] [phone] Urinary tract infection without hematuria, site unspecified [...] Description 09/28/2024 10:00 AM EDT Office Visit [facility] MED & PEDS [address] [place] [address] Sarah Mathews MD 505 [place] [address] Scheduled Referrals Name Type Priority Associated Diagnoses Orde r Schedule Referral to Pharmacy [facility] Outpatient Referral Routine Urinary tract infection without hematuria, site unspecified Ordered: 09/12/2023 documented as of this encounter Visit Diagnoses Diagnosis Urinary tract infection without hematuria, site unspecified- Primary documented in this encounter Care Teams Embossing Machine Operator Relationship Specialty Start Date End Date Sarah Mathews MD [address] [place] [address] PCP - General Family Medicine 04/15/12 Juan BENITES 06/15/24 documented as of this encounter
--- OUTSIDE RECORDS SUMMARY | 2024-09-10 10:08 | XMS_ITS | Encounter Summary ---
Author Organization [employer] Address 75 [facility] 7t [place] [address] Care Team Providers Care Electrician Powerhouse Name Role Phone Sarah Mathews MD Primary Care Provider [phone] Reason for Visit * Reason Onset Date Comments Nurse Triage 07/01/2024 Encounter Details Date Type Department Care Team ([facility] st Contact Info) Description 07/01/2024 Telephone [facility] MEDICINE [address] [place] [address] Sarah Mathews MD [address] [place], [place] [phone] Nurse Triage Social History Tobacco Use Types [...] is your housing situation today? I have umrila banegas 04/10/[address] you [...] speak for Pt. Pt was admitted to [facility] 06/11/24for dx of copd exacerbation and covid. Pt was discharged 06/13/24. Pt has been having low blood pressure even while in the hospital. Note, Pt has been undergoing chemotherapy prior to ED visit. Pt was seen by education department registrar yesterday and had a BP of 84/48. [...] advice and disposition. [place]K apt [place] [facility] today at 240[place]. Insurance is verified [...] Description 09/28/2024 10:00 AM EDT Office Visit [facility] MED & PEDS [address] [place] [address] Sarah Mathews MD 505 [place] [address] documented as of this encounter Visit Diagnoses Not on filedocumented in this encounter Additional Health Concerns Assessment Noted Time PHQ-9 Depression Total Score: 2 04/29/20 24 10:19 AM EST documented as of this encounter Care Teams Electrician Powerhouse Relationship Specialty Start Date End Date Sarah Mathews MD [address] [place] [address] PCP - General Family Medicine 04/15/12 Juan BENITES 06/15/24 documented as of this encounter
--- OUTSIDE RECORDS SUMMARY | 2024-09-10 10:08 | XMS_ITS | Encounter Summary ---
Author Organization [employer] Address 75 [facility] 7t [place] [address] Care Team Providers Care Kiln Door Builder Name Role Phone Sarah Mathews MD Primary Care Provider [phone] Reason for Visit * Reason Onset Date Comments Results 10/09/2023 Encounter Details Date Type Department Care Team ([facility] Contact Info) Description 10/09/2023 Telephone [facility] MED & PEDS [address] [place], [place] [phone] Sarah Mathews MD [address] [place], [place] [phone] Results Social History Tobacco Use Types Packs/Day [...] for ordered:liver panel, BMP, lipid panel from [facility] and printed to [facility] [...] results: labs Date when done: 09/30/23 Facility[place] [facility] Telephone Encounter - Melissa Kirby - 10/09/2023 12:35 PM EDT TC from pt daughter requesting call back regarding Results. Type of results: labs Date when done: 09/30/23 Facility[place] [facility] documented in this encounter Plan of Treatment Upcoming Encounters Date Type Department Care Team (Late st Contact Info) Description 09/28/2024 10:00 AM EDT Office Visit [facility] MED & PEDS [address] [place] [address] Sarah Mathews MD [address] [place] [address] documented as of this encounter Visit Diagnoses Not on filedocumented in this encounter Care Teams Kiln Door Builder Relationship Specialty Start Date End Date Sarah Mathews MD [address] [place] [address] PCP - General Family Medicine 04/15/12 Juan BENITES 06/15/24 documented as of this encounter
--- OUTSIDE RECORDS SUMMARY | 2024-09-10 10:08 | XMS_ITS | Encounter Summary ---
Author Organization [employer] Address 75 [facility] 7t [place] [address] Care Team Providers Care Printing Mechanist Name Role Phone Sarah Mathews MD Primary Care Provider [phone] Reason for Visit * Reason Onset Date Comments Hospital Follow-up 09/11/2023 Encounter Details Date Type Department Care Team ([facility] Contact Info) Description 09/11/2023 Telephone C [facility] MED & PEDS [address] [place], [place] [phone] Sarah Mathews MD [address] [place], [place] [phone] Hospital Follow-up Social History Tobacco Use Types [...] from pt requesting a HDF appt. Hospital: [facility] Date of admission: 09/06 Discharge date: 09/08 Diagnosed: UTI, Fall, Acute kidney injury, Hypokalemia Please contact daughter at [phone] documented in this encounter Plan of Treatment Upcoming Encounters Date Type Department Care Team (Late st Contact Info) Description 09/28/2024 10:00 AM EDT Office Visit [facility] MED & PEDS [address] [place] [address] Sarah Mathews MD [address] [place] [address] documented as of this encounter Visit Diagnoses Not on filedocumented in this encounter Care Teams Printing Mechanist Relationship Specialty Start Date End Date Sarah Mathews MD [address] [place] [address] PCP - General Family Medicine 04/15/12 Juan A 06/15/24 documented as of this encounter
--- OUTSIDE RECORDS SUMMARY | 2024-09-10 10:08 | XMS_ITS | Encounter Summary ---
Author Organization [employer] Address 75 [facility] 7t [place] [address] Care Team Providers Care Beef Trimmer Name Role Phone Sarah Mathews MD Primary Care Provider [phone] Reason for Visit * Reason Onset Date Comments FYI 09/16/2023 Encounter Details Date Type Department Care Team ([facility] st Contact Info) Description 09/16/2023 Telephone C [facility] MED & PEDS [address] [place], [place] [phone] Sarah Mathews MD [address] [place], [place] [phone] FYI Social History Tobacco Use Types Packs/Day [...] MG tablet. Any questions, contact [place] at [phone] documented in this encounter Plan of Treatment Upcoming Encounters Date Type Department Care Team ([facility] st Contact Info) Description 09/28/2024 10:00 AM EDT Office Visit [facility] MED & PEDS [address] [place] [address] Sarah Mathews MD [address] [place] [address] documented as of this encounter Visit Diagnoses Not on filedocumented in this encounter Care Teams Beef Trimmer Relationship Specialty Start Date End Date Sarah Mathews MD [address] [place] [address] PCP - General Family Medicine 04/15/12 Juan BENITES 06/15/24 documented as of this encounter
--- OUTSIDE RECORDS SUMMARY | 2024-09-10 10:08 | XMS_ITS | Encounter Summary ---
Author Organization [employer] Address 75 [facility] 7t [place] [address] Care Team Providers Care Strategic Planner Name Role Phone Sarah Mathews MD Primary Care Provider [phone] Reason for Visit * Reason Onset Date Comments FYI 07/20/2024 Encounter Details Date Type Department Care Team ([facility] st Contact Info) Description 07/20/2024 Telephone C [facility] MED & PEDS [address] [place], [place] [phone] Sarah Mathews MD [address] [place] [address] FYI Social History Tobacco Use Types Packs/Day [...] - 07/20/2024 9:38 AM EST Tc from [facility] with [facility] calling to inform pt missed today visit next visit is 07/23/24. documented in this encounter Plan of Treatment Upcoming Encounters Date Type Department Care Team (Late st Contact Info) Description 09/28/2024 10:00 AM EDT Office Visit [facility] MED & PEDS [address] [place] [address] Sarah Mathews MD [address] [place] [address] documented as of this encounter Visit Diagnoses Not on filedocumented in this encounter Additional Health Concerns Assessment Noted Time PHQ-9 Depression Total Score: 2 04/29/20 24 10:19 AM EST documented as of this encounter Care Teams Strategic Planner Relationship Specialty Start Date End Date Sarah Mathews MD [address] [place] [address] PCP - General Family Medicine 04/15/12 Juan [facility] 06/15/24 documented as of this encounter
--- OUTSIDE RECORDS SUMMARY | 2024-09-10 10:08 | XMS_ITS | Encounter Summary ---
Author Organization [employer] Address 75 [facility] 7t [place] [address] Care Team Providers Care Metrology Specialist Name Role Phone Sarah Mathews MD Primary Care Provider [phone] Reason for Visit * Reason Onset Date Comments Chart Prep 08/25/2024 Encounter Details Date Type Department Care Team ([facility] st Contact Info) Description 08/25/2024 Telephone C [facility] MED & PEDS [address] [place], [place] [phone] Sarah Mathews MD [address] [place], [place] [phone] Chart Prep Social History Tobacco Use Types [...] Description 09/28/2024 10:00 AM EDT Office [facility] MED & PEDS [address] [place] [address] Sarah Mathews MD [address] [place] [address] documented as of this encounter Visit Diagnoses Not on filedocumented in this encounter Additional Health Concerns Assessment Noted Time PHQ-9 Depression Total Score: 2 04/29/20 24 10:19 AM EST documented as of this encounter Care Teams Metrology Specialist Relationship Specialty Start Date End Date Sarah Mathews MD [address] [place] [address] PCP - General Family Medicine 04/15/12 Juan BENITES 06/15/24 documented as of this encounter
--- OUTSIDE RECORDS SUMMARY | 2024-09-10 10:08 | XMS_ITS | Encounter Summary ---
Author Organization [employer] Address 75 [facility] 7t [place] [address] Care Team Providers Care Forest Products Gatherer Name Role Phone Sarah Mathews MD Primary Care Provider [phone] Reason for Visit * Reason Onset Date Comments FYI 06/16/2024 Encounter Details Date Type Department Care Team ([facility] st Contact Info) Description 06/16/2024 Telephone [facility] MEDICINE [address] [place] [address] Sarah Mathews MD [address] [place], [place] [phone] FYI Social History Tobacco Use Types Packs/Day [...] [facility] MED & PEDS [address] [place] [address] Sarah Mathews MD 505 [place] [address] documented as of this encounter Visit Diagnoses Not on filedocumented in this encounter Additional Health Concerns Assessment Noted Time PHQ-9 Depression Total Score: 2 04/29/20 24 10:19 AM EST documented as of this encounter Care Teams Forest Products Gatherer Relationship Specialty Start Date End Date Sarah Mathews MD [address] [place] [address] PCP - General Family Medicine 04/15/12 Juan BENITES 06/15/24 documented as of this encounter
== END 2024-09-10 09:41 | disposition home or self-care (01) ==
LOC: HO.HPS 09:20
PROVIDERS: PCP Student in an Organized Health Care Education/Training Program; Visit Provider Internal Medicine
DX: J44.9 Chronic obstructive pulmonary disease, unspecified (principal); F17.200 Nicotine dependence, unspecified, uncomplicated; R09.02 Hypoxemia; C80.1 Malignant (primary) neoplasm, unspecified
CPT/HCPCS: 99213

== ENCOUNTER → 2024-09-10 09:19 | Outpatient (BNVA) | payer MEDICARE, MEDICAID, SELFPAY | PROVIDERS: PCP Student in an Organized Health Care Education/Training Program; Visit Provider Internal Medicine | DX: J44.9 Chronic obstructive pulmonary disease, unspecified (principal); C34.11 Malignant neoplasm of upper lobe, right bronchus or lung; C79.31 Secondary malignant neoplasm of brain; F17.210 Nicotine dependence, cigarettes, uncomplicated; R09.02 Hypoxemia; Z99.81 Dependence on supplemental oxygen | CPT/HCPCS: 99212 ==

== ENCOUNTER 2024-09-21 12:19 | Outpatient (AMB) | payer MEDICARE, MEDICAID, SELFPAY ==
[2024-09-21 12:31] VITALS: BP 120/80; PULSE 78; BMI 21.3
--- NOTE | 2024-09-21 12:31 | MHC.OFFVIS ---
Vital Signs 09/21/24 12:31 Height 5 ft 5 in Weight 127 lb 13.89 oz BMI 21.3 BP 120/80 Blood Pressure Location Lt brachial Position Sitting Pulse 78 Intake Visit Reasons: POTASH FLAKER- Edema leg Intake Note: New patient echo abnormal echo Collar Closer Lockstitch Required: No Forestry Foreman: Forestry Foreman Present Accompanied by: Daughter Allergies No Known Allergies [No Known Allergies*] Allergy (Verified 09/10/24 09:40) Medication List - Last Reconciled 09/21/24 by Shiraz Staton MD albuterol sulfate 90 mcg/actuation (Ventolin HFA) 2 inhalations inhalation Q6H PRN albuterol sulfate 2.5 mg (3 mL) inhalation Q4H PRN alprazolam 0.25 mg PO BEDTIME PRN blood pressure test kit-large As directed fluticasone furoate-vilanterol 100-25 mcg/dose (Breo Ellipta) 1 inh inhalation DAILY gemfibrozil 600 mg PO BID levothyroxine 125 mcg PO DAILY@0600 pravastatin 20 mg PO BEDTIME HPI Comments Details: Thank you for referring Janine in cardiology consultation today for echocardiogram results. She was 84-year-old female with underlying significant COPD requiring oxygen therapy with exertion at nighttime. Patient has been admitted multiple time with hypoxemic respiratory failure related to significant COPD exacerbation. Unfortunately she has started to smoke again. She presents here with her daughter. She continues to exertional shortness of breath but denies any orthopnea, PND, leg edema. During 1 of the hospitalization she was noted to have significantly elevated BNP in the 600 range which had then down to 200 range. She has not had any significant history of prior congestive heart failure. She denies any palpitations, lightheadedness, syncope. No exertional chest pain. She was at 1 point time treated with loop diuretics but she has been off it and there is no worsening heart failure syndrome. She had an echocardiogram which shows normal LV ejection fraction but severe mitral annular calcification with mild mitral stenosis without significant pulmonary hypertension. [facility]LY [facility], [facility] Medical History COPD (chronic obstructive pulmonary disease) Anemia Hypoxemia Smoker Diverticulosis Hypercholesteremia IBS (irritable bowel syndrome) HTN (hypertension) Surgical History Small cell carcinoma Hx of tonsillectomy Hx of appendectomy History of lumpectomy Lymphadenopathy, mediastinal Lung mass H/O colonoscopy Family History Sister Breast cancer Social History Household Members: None Housing: Apartment Do you presently have visiting nurse or other home services: No Alcohol intake: never Patient Tobacco Use Status: Current everyday Tobacco user Tobacco use type: Cigarette Cigarette Packs Per Day: 0.25 Years Smoked: 60 e-Cigarette/Vaping Use: Currently Using Second Hand Smoke Exposure: No Advance Directives Date on File: 08/04/24 service: No Current occupational status: retired Review of Systems Const Denies chills, Denies daytime sleepiness, Denies fatigue, Denies fever(s), Denies frequent falls, Denies poor appetite, Denies snoring, Denies stops breathing during sleep, Denies weakness, Denies weight gain and Denies weight loss Eyes Denies loss of vision ENT Denies dizziness and Denies hearing loss Card Denies chest pain, Denies claudication, Denies leg edema, Denies lightheadedness, Denies palpitations, Denies dyspnea, Denies dyspnea on exertion and Denies orthopnea Resp Denies cough, Denies excessive phlegm production, Denies dyspnea, Denies dyspnea on exertion, Denies snoring and Denies wheezing GI Denies abdominal pain, Denies hematochezia, Denies change in bowel habits, Denies nausea and Denies vomiting Denies urinary frequency and Denies dysuria Musc Denies arthralgias, Denies muscle weakness, Denies numbness and Denies other (frequent falls) Skin/Breast Denies nail changes and Denies rash Neuro Denies Abnormal speech present, Denies dizziness, Denies frequent falls, Denies loss of vision, Denies memory loss, Denies numbness and Denies weakness Psych Denies depression and Denies memory loss Endo Denies fatigue and Denies palpitations Michael/Lymph Reports easy bruising and Reports other (anemia) Aller/Immun Denies wheezing Physical Exam Vital Signs: Last Vital Signs Pulse 78 09/21/24 12:31 BP 120/80 09/21/24 12:31 BMI result Body Mass Index 21.3 Const General: cooperative, comfortable, no acute distress, alert and awake Nutritional Appearance: thin Orientation/consciousness: patient oriented x3 Limitations: no limitations HEENT Head: Yes normocephalic and Yes atraumatic Neck Neck: Yes trachea midline, Yes supple and Yes no JVD Resp Effort & Inspection: normal respiratory effort Auscultation: clear to auscultation bilaterally and diminished lung sounds Cardio Jugular venous distension: no JVD Palpation: normal PMI Rate: regular rate Rhythm: regular rhythm Heart sounds: S1 normal heart sound present, S2 normal heart sound present, no click, no gallops, no murmurs and no rubs GI Auscultation: normal bowel sounds Skin General skin exam: no rashes or lesions noted Neuro General: patient oriented x3 and no focal motor deficits Speech: No Abnormal speech present Extrem General: Yes no clubbing, cyanosis or edema Psych Appearance: grossly normal Assessment & Plan Assessment & Plan (1) Mitral annular calcification: Code(s): I34.81 - Nonrheumatic mitral (valve) annulus calcification Category: Medical Plan: Patient was severe mitral annular calcification with only mild mitral valve stenosis. This does not require any intervention at this point time. Pathophysiology of mitral annular calcification was noted. I would consider low-dose aspirin therapy to prevent neurologic complications related to mitral annular calcification. Complete smoking cessation was advised. Continue aggressive risk factor modification including aggressive blood pressure control. Target goal LDL less than 100 mg/dL. Follow-up echocardiogram in 1 year's time. (2) Elevated brain natriuretic peptide (BNP) level: Code(s): R79.89 - Other specified abnormal findings of blood chemistry Category: Medical Plan: Elevated BNP in the setting of COPD exacerbation most likely related to RV strain. Clinically no signs of congestive heart failure. Currently does not require any diuretics. However higher BNP predict switch her risk of development of heart failure syndrome. This was discussed with her. Pulmonary optimization should be pursued. Treating hypoxemia aggressively should be pursued. Importance of complete smoking cessation was discussed. Will follow up in the clinic in 1 year's time, sooner p.r.n.. Thank you for allowing me to partake in her care Coding Level of Care Code New Pt Level 4 (27254) Complex EM visit Add On G2211 Diagnoses Mitral annular calcification I34.81 Elevated brain natriuretic peptide (BNP) level R79.89
--- OUTSIDE RECORDS SUMMARY | 2024-09-21 13:59 | XMS_ITS | Encounter Summary ---
Author Organization [employer] Address 75 [facility] 7t [place] [address] Care Team Providers Care Dye House Helper Name Role Phone Sarah Mathews MD Primary Care Provider [phone] Reason for Visit * Reason Onset Date Comments Nurse Triage 07/01/2024 Encounter Details Date Type Department Care Team ([facility] st Contact Info) Description 07/01/2024 Telephone [facility] MEDICINE [address] [place] [address] Sarah Mathews MD [address] [place], [place] [phone] Nurse Triage Social History Tobacco Use Types [...] speak for Pt. Pt was admitted to [facility] 06/11/24for dx of copd exacerbation and covid. Pt was discharged 06/13/24. Pt has been having low blood pressure even while in the hospital. Note, Pt has been undergoing chemotherapy prior to ED visit. Pt was seen by entry level lab technician yesterday and had a BP of 84/48. [...] this advice and disposition. ASK apt in [facility] today at 240pm. Insurance is verified [...] 10:00 AM EDT Office Visit [facility] MED & PEDS [address] [place] [address] Sarah Mathews MD [address] [place] [address] documented as of this encounter Visit Diagnoses Not on filedocumented in this encounter Additional Health Concerns Assessment Noted Time PHQ-9 Depression Total Score: 2 04/29/20 24 10:19 AM EST documented as of this encounter Care Teams Dye House Helper Relationship Specialty Start Date End Date Sarah Mathews MD [address] [place] [address] PCP - General Family Medicine 04/15/12 Juan BENITES 06/15/24 documented as of this encounter
--- OUTSIDE RECORDS SUMMARY | 2024-09-21 13:59 | XMS_ITS | Encounter Summary ---
Author Organization [employer] Address 75 [facility] 7t [place] [address] Care Team Providers Care Electronic Integrated Systems Mechanic Name Role Phone Sarah Mathews MD Primary Care Provider Reason for Visit * Reason Comments Med Refill Encounter Details Date Type Department Care Team ([facility] st Contact Info) Description 02/09/2024 Refill [facility] MEDICINE [address] [place] [address] Sarah Mathews MD [address] [place], [place] [phone] Primary hypertension Social History Tobacco Use Types [...] [facility] MED & PEDS [address] [place] [address] Sarah Mathews MD [address] [place] [address] documented as of this encounter Visit Diagnoses Diagnosis Primary hypertension Unspecified essential hypertension documented in this encounter Care Teams Electronic Integrated Systems Mechanic Relationship Specialty Start Date End Date Sarah Mathews MD [address] [place] [address] PCP - General Family Medicine 04/15/12 Juan Daniella 06/15/24 documented as of this encounter
--- OUTSIDE RECORDS SUMMARY | 2024-09-21 13:59 | XMS_ITS | Encounter Summary ---
Author Organization [employer] Address [address] [facility] 7t [place] [address] Care Team Providers Care Adult Services Librarian Name Role Phone Sarah Mathews MD Primary Care Provider [phone] Reason for Visit * Reason Onset Date Comments Hospital Follow-up 08/05/2024 Encounter Details Date Type Department Care Team ([facility] st Contact Info) Description 08/05/2024 Telephone [facility] MEDICINE [address] [place] [address] Sarah Mathews MD [address] [place], [place] [phone] Hospital Follow-up Social History Tobacco Use Types [...] from pt requesting a HDF appt. Hospital: [facility] Date of admission: 08/03/2024 Discharge date: 08/05/2024 Diagnosed: Respiratory Problems and UTI *Send message to [place] Clinical Care Coordinators documented in this encounter Plan of Treatment Upcoming Encounters Date Type Department Care Team (Late st Contact Info) Description 09/28/2024 10:00 AM EDT Office Visit [facility] CHC MED & PEDS [address] [place] [address] Sarah Mathews MD [address] [place] [address] documented as of this encounter Visit Diagnoses Not on filedocumented in this encounter Additional Health Concerns Assessment Noted Time PHQ-9 Depression Total Score: 2 04/29/20 24 10:19 AM EST documented as of this encounter Care Teams Adult Services Librarian Relationship Specialty Start Date End Date Sarah Mathews MD [address] [place] [address] PCP - General Family Medicine [facility] documented as of this encounter
--- OUTSIDE RECORDS SUMMARY | 2024-09-21 13:59 | XMS_ITS | Encounter Summary ---
Author Organization [employer] Address [address] [facility] 7t [place] [address] Care Team Providers Care Barrel Finisher Name Role Phone Sarah Mathews MD Primary Care Provider [phone] Reason for Visit * Reason Onset Date Comments Medication Question 07/29/2024 Encounter Details Date Type Department Care Team ([facility] st Contact Info) Description 07/29/2024 Telephone C [facility] MED [facility] PEDS [address] [place], [place] [phone] Sarah Mathews MD [address] [place], [place] [phone] Medication Question Social History Tobacco Use Types [...] give Pt 10 mg. Contact pt at [phone] * Telephone Encounter - Abel Rutledge - 07/30/2024 4:08 PM EST Tc from Pt daughter requesting that 10 mg furosemide (Lasix) could be sent to [facility] #[id number] AT [facility]. Pt daughter is also waiting for call to schedule and endogram for pt. 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 Any further questions please contact phone # [phone] documented in this encounter Plan of Treatment Upcoming Encounters Date Type Department Care Team ([facility] st Contact Info) Description 09/28/2024 10:00 AM EDT Office Visit [facility] CHC MED & PEDS [address] [place] [address] Sarah Mathews MD [address] [place] [address] documented as of this encounter Visit Diagnoses Not on filedocumented in this encounter Additional Health Concerns Assessment Noted Time PHQ-9 Depression Total Score: 2 04/29/20 24 10:19 AM EST documented as of this encounter Care Teams Barrel Finisher Relationship Specialty Start Date End Date Sarah Mathews MD [address] [place] [address] PCP - General Family Medicine 04/15/12 Juan BENITES 06/15/24 documented as of this encounter
--- OUTSIDE RECORDS SUMMARY | 2024-09-21 13:59 | XMS_ITS | Encounter Summary ---
Author Organization [employer] Address [address] [facility] 7t [place] [address] Care Team Providers Care Otolaryngology Surgeon Name Role Phone Sarah Mathews MD Primary Care Provider [phone] Reason for Visit * Reason Onset Date Comments FYI 09/16/2023 Encounter Details Date Type Department Care Team ([facility] st Contact Info) Description 09/16/2023 Telephone C [facility] MED [facility] PEDS [address] [place], [place] [phone] Sarah Mtahews MD [address] [place], [place] [phone] FYI Social History Tobacco Use Types Packs/Day [...] MG tablet. Any questions, contact [place] at [phone] documented in this encounter Plan of Treatment Upcoming Encounters Date Type Department Care Team ([facility] st Contact Info) Description 09/28/2024 10:00 AM EDT Office Visit [facility] MED & PEDS [address] [place] [address] Sarah Mathews MD [address] [place] [address] documented as of this encounter Visit Diagnoses Not on filedocumented in this encounter Care Teams Otolaryngology Surgeon Relationship Specialty Start Date End Date Sarah Mathews MD [address] [place] [address] PCP - General Family Medicine 04/15/12 Juan BENITES 06/15/24 documented as of this encounter
--- OUTSIDE RECORDS SUMMARY | 2024-09-21 13:59 | XMS_ITS | Encounter Summary ---
Author Organization [employer] Address [address] [facility] 7t [place] [address] Care Team Providers Care Earth Mover Name Role Phone Sarah Mathews MD Primary Care Provider [phone] Reason for Referral * Consultation (Routine) - Closed Specialty Diagnoses / Procedures Referred By Contac t Referred To Contact Pharmacy Diagnoses Urinary tract infection without hematuria, site unspecified Tash Walker, PharmD [address] [place] [address] Phone: tel: fax: Referral ID Status Reason Start Date Expiration Date V isits Requested Visits Authorized [id number] Closed Continuity of Care 09/12/2023 09/11/2024 1 1 Encounter Details Date Type Department Care Team (Late st Contact Info) Description 09/12/2023 Orders Only [facility] MEDICINE [address] [place], [place] [phone] Tash Walker, PharmD [address] [place], [place] [phone] Urinary tract infection without hematuria, site unspecified [...] 10:00 AM EDT Office Visit [facility] MED & PEDS [address] [place] [address] Sarah Mathews MD [address] [place] [address] Scheduled Referrals Name Type Priority Associated Diagnoses Orde r Schedule Referral to Pharmacy [facility] Outpatient Referral Routine Urinary tract infection without hematuria, site unspecified Ordered: 09/12/2023 documented as of this encounter Visit Diagnoses Diagnosis Urinary tract infection without hematuria, site unspecified- Primary documented in this encounter Care Teams Earth Mover Relationship Specialty Start Date End Date Sarah Mathews MD [address] [place] [address] PCP - General Family Medicine 04/15/12 Juan BENITES 06/15/24 documented as of this encounter
--- OUTSIDE RECORDS SUMMARY | 2024-09-21 13:59 | XMS_ITS | Encounter Summary ---
Author Organization [employer] Address [address] [facility] 7t [place] [address] Care Team Providers Care Weigher Bulker Name Role Phone Sarah Mathews MD Primary Care Provider [phone] Reason for Visit * Reason Onset Date Comments Hospital Follow-up 09/11/2023 Encounter Details Date Type Department Care Team ([facility] Contact Info) Description 09/11/2023 Telephone C [facility] MED & PEDS [address] [place], [place] [phone] Sarah Mathews MD [address] [place], [place] [phone] Hospital Follow-up Social History Tobacco Use Types [...] from pt requesting a HDF appt. [facility]: [facility] Date of admission: 09/06 Discharge date: 09/08 Diagnosed: UTI, Fall, Acute kidney injury, Hypokalemia Please contact daughter at [phone] documented in this encounter Plan of Treatment Upcoming Encounters Date Type Department Care Team (Late st Contact Info) Description 09/28/2024 10:00 AM EDT Office Visit [facility] MED & PEDS [address] [place] [address] Sarah Mathews MD [address] [place] [address] documented as of this encounter Visit Diagnoses Not on filedocumented in this encounter Care Teams Weigher Bulker Relationship Specialty Start Date End Date Sarah Mathews MD [address] [place] [address] PCP - General Family Medicine 04/15/12 Juan A 06/15/24 documented as of this encounter
--- OUTSIDE RECORDS SUMMARY | 2024-09-21 13:59 | XMS_ITS | Encounter Summary ---
Author Organization [employer] Address [address] [facility] 7[address] [place] [address] Care Team Providers Care Help Desk Internship Name Role Phone Sarah Mathews MD Primary Care Provider Reason for Visit * Reason Onset Date Comments FYI 06/16/2024 Encounter Details Date Type Department Care Team ([facility] st Contact Info) Description 06/16/2024 Telephone [facility] MEDICINE [address] [place] [address] Sarah Mathews MD [address] [place], [place] [phone] FYI Social History Tobacco Use Types Packs/Day [...] 10:00 AM EDT Office Visit [facility]EDS [address] [place] [address] Sarah Mathews MD [address] [place] [address] documented as of this encounter Visit Diagnoses Not on filedocumented in this encounter Additional Health Concerns Assessment Noted Time PHQ-9 Depression Total Score: 2 04/29/20 24 10:19 AM EST documented as of this encounter Care Teams Help Desk Internship Relationship Specialty Start Date End Date Sarah Mathews MD [address] [place] [id number] PCP - General Family Medicine 04/15/12 Juan BENITES 06/15/24 documented as of this encounter
--- OUTSIDE RECORDS SUMMARY | 2024-09-21 13:59 | XMS_ITS | Clinical Summary ---
Author Organization [employer] Address [address] [facility] [place] [address] Care Team Providers Care Debt Management Counselor Name Role Phone Sarah Mathews MD Primary Care Provider [phone] Allergies No known active allergies Medications ALPRAZolam [...] days. 6 tablet 07/28/19 25 025 Discontinued Salmeterol Xinafoate (Serevent Diskus) 50 MCG/ACT aerosol [...] Description 08/26/2024 10:45 AM EST Office Visit [facility] [address] [place] [address] Sarah Mathews MD Chronic obstructive pulmonary disease, unspecified COPD type (CMS/HCC) (Primary Dx) 08/26/2024 Travel 08/25/2024 Telephone [facility] [address] [place] [address] Sarah Mathews MD Chart Prep 08/13/2024 10:30 AM EST Office Visit [facility] [address] [place] [address] Melanie Marlow MD Smoker (Primary Dx); Chronic obstructive pulmonary disease, unspecified COPD type (CMS/HCC); Hypoxemia; Atherosclerotic cardiovascular disease 08/13/2024 Travel 08/13/2024 Telephone [place] [facility] [address] [place] [address] Melanie Marlow MD 08/12/2024 Telephone [place] [facility] [address] [place] [phone] Sarah Mathews MD ECHO ORDER 08/12/2024 Orders Only [facility] [address] [place] [address] Sarah Mathews MD Edema leg (Primary Dx) 08/06/2024 Telephone [facility] [address] [place] [address] Bienvenido Canela MD 08/05/2024 Patient Outreach [facility] [address] [place] [address] Sarah Mathews MD Transition Of Care (Tcm) (HDF- scheduled ) 08/05/2024 Telephone [facility] [address] [place] [phone] Sarah Mathews MD Hospital Follow-up 08/03/2024 Orders Only GENERIC EXTERNAL DATA DEPARTMENT Provider, Generic External Data 07/29/2024 10:45 AM EST Office Visit [facility] [address] [place] [address] Sarah Mathews MD Edema leg (Primary Dx); Primary hypertension; Chronic obstructive pulmonary disease, unspecified COPD type (CMS/HCC) 07/29/2024 Orders Only [facility] [address] [place] [address] Sarah Mathews MD 07/29/2024 Telephone [facility] [address] [place] [address] Sarah Mathews MD Medication Question 07/29/2024 Travel 07/28/2024 4:00 PM EST Office Visit [facility] [address] [place] [phone] Sue Hooper MD COPD exacerbation ([facility]) (Primary Dx); Cough, unspecified type 07/28/2024 Telephone [facility] [address] [place] [address] Sarah Mathews MD Nurse Triage 07/22/2024 Patient Outreach [facility] [address] [place] [address] Sarah Mathews MD Pre-visit Planning (SDOH negative, Tobacco screening negative. ) 07/20/2024 Telephone [facility] [address] [place] [address] Sarah Mathews MD FYI 07/08/2024 2:00 PM EST Clinical Support [facility] [address] [place] [address] Jose David Huff, FERNANDA Idiopathic hypotension 07/08/2024 Travel 07/01/2024 2:40 PM EST Office Visit [facility] [address] [place] [address] Sandra Francois MD Idiopathic hypotension (Primary Dx); Cough, unspecified type 07/01/2024 Travel 07/01/2024 Telephone [facility] [address] [place] [phone] Sarah Mathews MD Nurse Triage from Last 3 Months Immunizations Name Administration [...] Description 09/28/2024 10:00 AM EDT Office Visit [facility] [address] [place] [address] Sarah Mathews MD [address] [place] [address] Health Maintenance Due Date Last Done Comments [...] Chronic obstructive pulmonary disease, unspecified COPD type ([facility]/HCC) HIGH SENSITIVITY TROPONIN I Routine 08/03/2024 11:52 [...] EST Narrative 08/28/2024 3:04 PM EST ? [facility] ?[address] ?[place] [address] ?XRay Report ? Signed ? Patient: Emerita,Janine ?MR#: [id number] ?? 34 ? : 1940 ?Acct:[id number] ? Age/Sex: 84 / F ?ADM Date: 03/05/25 ? Loc: HO.XRAY ? Attending Dr: Sarah Mathews MD ? Ordering Physician: Sarah Mathews MD ?? Date of Service: 08/26/24 ?? Procedure(s): XR chest 2V ?? Accession Number(s): [id number] ? cc: Yosef Wolff MD; Sarah Mathews [...] DD/ 1144 ? TD/TT: 08/26/24 1153 ? Quality Review Specialist: ? Procedure Note Enzo, Image - 08/28/2024 [place] [address] XRay Report Signed Patient: Vanesa Felder#: [id number] 34 : 2Acct:[id number] Age/Sex: 84 / FADM Date: 08/26/24 Loc: RAJNI Attending Dr: Sarah Mathews MD Ordering Physician: Sarah Mathews MD Date of Service: 08/26/24 Procedure(s): XR chest 2V Accession Number(s): [id number] cc: Yosef Wolff MD; Sarah Mathews MD [...] 08/28/24 1502 DD/ 1144 TD/TT: 08/26/24 1153 Quality Review Specialist: us Sarah Mathews MD IMG XR PROCEDURES Final Result * High Sensitivity Troponin I (08/03/2024 11:52 AM EST) Pathologist [facility] TROPONIN I HIGH SENSITIVITY 4.0 <3.5 - 17.0 ng/L [facility] Comment:The Chávez high sens itivity Troponin-I results should beused in conjunction with other diagnostic information suchas ECG, clinical observations and information, and patientsymptoms to aid in the diagnosis of [place]. 08/03/2024 11:5 2 AM EST 08/03/2024 11:58 AM EST us Generic External Data Provider LAB BLOOD ORDERAB LES Final Result [facility] [address] [place] [phone] * SARS-CoV-2 RNA, Influenza A/B, and RSV RNA, Ql NAAT (08/03/2024 11:52 AM EST) Pathologist [facility] Influenza A PCR NEGATIVE Negative [facility] Influenza B PCR NEGATIVE Negative [facility] Resp Syncy Virus RNA Qual PCR NEGATIVE Negative [facility] SARS COV2 PCR NEGATIVE Negative [facility] Comment:All test results mus [...] use by authorized laboratories.Testing performed on the Veratect GeneXpert utilizingreal-time RT-PCR.All SARS CoV2 and positive influenza A/B results arereported to [facility]. 08/03/2024 11:5 2 AM EST 08/03/2024 12:00 PM EST us Generic External Data Provider LAB MICROBIOLOGY - GENERAL ORDERABLES Final Result [facility] [address] [place] [phone] * (ABNORMAL) CBC auto differential (08/03/2024 11:52 AM EST) White Blood Count 9.6 4.8 - 10.8 X10*3/uL [facility] Red Blood Count 3.46(L) 4.20 - 5.50 X10*6/uL [facility] Hemoglobin 11.6(L) 12.0 - 16.0 g/dl [facility] Hematocrit 37.6 37.0 - 47.0 % [facility] Mean Corpuscular Volume 108.7(H) 80.0 - 98.0 fL [facility] Mean Corpuscular Hemoglobin 33.5(H) 27.0 - 33.0 pg [facility] Mean Corpuscular HGB Conc 30.9(L) 31.0 - 35.0 g/dl [facility] Red Cell Distribution Width 15.3 11.0 - 16.0 % [facility] Platelet Count 194 160 - 400 X10*3/uL [facility] Mean Platelet Volume 9.7 9.4 - 12.3 fL [facility] Neutrophils Percent Auto 82.8(H) 45 - 73 % [facility] Imm Gran Pct Auto 2.2(H) 0.0 - 0.4 % [facility] Lymphocytes Percent Auto 6.8(L) 20 - 40 % [facility] Monocytes Percent Auto 7.3 2 - 11 % [facility] Eosinophils Percent Auto 0.5 0 - 4 % [facility] Basophils Percent Auto 0.4 0 - 2 % [facility] NRBC Pct Auto 0.0 0.0 - 0.2 /100WBC [facility] Neutrophils Absolute Auto 8.0 2.0 - 8.3 x10*3/uL [facility] Imm Gran Abs Auto 0.21(H) 0.00 - 0.03 X10*3/uL [facility] Lymphocytes Absolute Auto 0.7(L) 1.2 - 4.9 X10*3/uL [facility] Monocytes Absolute Auto 0.7 0.1 - 1.2 X10*3/uL [facility] Eosinophils Absolute Auto 0.1 0.0 - 0.4 X10*3/uL [facility] Basophils Absolute Auto 0.0 0.0 - 0.2 X10*3/uL [facility] NRBC Abs Auto 0.000 0.0 - 0.012 X10*3/uL [facility] 08/03/2024 11:5 2 AM EST 08/03/2024 11:58 AM EST us Generic External Data Provider LAB BLOOD ORDERAB LES Final Result Performing Organization Address City/[facility]/ZIP Co de Phone Number [facility] [address] [place] [phone] * Magnesium (08/03/2024 11:52 AM EST) Magnesium 2.0 1.6 - 2.6 mg/dL [facility] 08/03/2024 11:5 2 AM EST 08/03/2024 11:58 AM EST Generic External Data Provider LAB BLOOD ORDERAB LES Final Result [facility] [address] [place] [phone] * (ABNORMAL) Comprehensive Metabolic Panel (08/03/2024 11:52 AM EST) Sodium 143 135 - 145 mmol/L [facility] Potassium 3.9 3.3 - 5.1 mmol/L [facility] Chloride 107 96 - 108 mmol/L [facility] Carbon Dioxide 29 22 - 29 mmol/L [facility] Anion Gap 11(L) 12 - 20 [facility] Urea Nitrogen (BUN) 28(H) 9 - 16 mg/dL [facility] Creatinine, Serum 0.94 0.5 - 1.4 mg/dL [facility] Creatinine Clr Calc Pharmacy 39.1 [facility] Comment:Provided height and weight: 162.56 cm,56.245 kg.eGFR (calculated from the MDRD study equation) and eCrCl(calculated from the Cockcroft-Gault equation) are based ondifferent parameters and may not yield comparable results.If eCrCl result is absurd, please check patient'sheight/weight. Estimated Glomerular Filt Rate 57 [facility] Comment:Chronic Kidney Disea se: Estimated GFR < 60 mL/min/1.80h2Cjoabc Kidney Disease: Estimated GFR < 15 mL/min/1.73m2 Glucose 95 60 - 115 mg/dL [facility] Calcium 8.8 8.4 - 10.2 mg/dL [facility] Bilirubin, Total 0.3 0.0 - 1.0 mg/dL [facility] Aspartate Amino Transferase 19 5 - 31 U/L [facility] Alanine Aminotransferase <6 0 - 31 U/L [facility] Total Protein 6.7 6.5 - 8.0 g/dL [facility] Albumin Level 3.7 3.5 - 5.0 g/dL [facility] Alkaline Phosphatase 67 39 - 117 U/L [facility] 08/03/2024 11:5 2 AM EST 08/03/2024 11:58 AM EST us Generic External Data Provider LAB BLOOD ORDERAB LES Final Result Performing Organization Address [facility] de Phone Number [facility] [address] [place] [phone] * HOLD LT BLUE - POSSIBLE COAG (08/03/2024 11:50 AM EST) Hold Lt Blue - Possible Coag SEE NOTE [facility] Comment:Specimen will be hel d untested for 4 hours. Call Hematologyif testing is desired. 08/03/2024 11:5 0 AM EST 08/03/2024 12:02 PM EST us Generic External Data Provider LAB BLOOD ORDERAB LES Final Result Performing Organization Address [facility] Co de Phone Number [facility] [address] [place] [phone] * XR Chest 1 View (08/03/2024 11:00 AM EST) Anatomical Region Laterality Modality Chest Radiographic Preeti ging 08/03/2024 11:0 0 AM EST Narrative 08/03/2024 11:26 AM EST ? [facility] ?[address] ?[place] [address] ?XRay Report ? Signed ? Patient: Janine Felder ?MR#: [id number] ?? 34 ? : 1940 ?Acct:[id number] ? Age/Sex: 84 / F ?ADM Date: 08/03/24 ? Loc: HO.ED ? Attending Dr: ? Ordering Physician: Mery Reinoso ?? Date of Service: 08/03/24 ?? Procedure(s): XR chest 1V ?? Accession Number(s): [id number] ? cc: Mery Reinoso; Sarah Mathews MD [...] cardiopulmonary process seen. ? Electronically signed by: ??Trye Ng MD ??08/03/2024 11:24 AM EST RP ? Dictated By: ?Berenice,Trey Burr MD ? Signed By: ?<Electronically signed by Trey Ng MD in OV> ?08/03/244 ? DD/ 1100 ? TD/TT: 08/03/24 1110 ? Quality Review Specialist: MSM ? Procedure Note Donjonel, Image - 08/03/[address] [address] XRay Report Signed Patient: Vanesa Felder#: [id number] 34 : 2Acct:[id number] Age/Sex: 84 / FADM Date: 08/03/24 Loc: HO.ED Attending Dr: Ordering Physician: Mery Reinoso Date of Service: 08/03/24 Procedure(s): XR chest 1V Accession Number(s): [id number] cc: Mery Reinoso; Sarah Mathews MD EXAMINATION: [...] 08/03/24 1124 DD/ 1100 TD/TT: 08/03/24 1110 Quality Review Specialist: SAMMY [facility] External Provider IMG XR PROCEDURES Final Result * POCT Rapid Influenza B CHÁVEZ ID NOW (07/28/2024 1:36 PM EST) [facility] Influenza B Negative Negative, Indeterminate [facility] Swab 07/28/2024 1:36 PM EST Sue Hooper MD POINT OF CARE TEST ENTER/EDIT ORDERABLES Final Result Performing Organization Address [facility] Co de Phone Number [facility] [address] [place] [phone] * POCT Rapid Influenza A CHÁVEZ ID NOW (07/28/2024 1:36 PM EST) [facility] Influenza A Negative Negative, Indeterminate [facility] Swab 07/28/2024 1:36 PM EST Sue Hooper MD POINT OF CARE TEST ENTER/EDIT ORDERABLES Final Result Performing Organization Address [facility] de Phone Number [facility] [address] [place] [phone] * POCT Rapid Covid-19 BinaxNOW (07/28/2024 1:21 PM EST) Pathologist [facility] Rapid COVID Ag Negative Swab 07/28/2024 1:21 PM EST Sue Hooper MD POINT OF CARE TEST ENTER/EDIT ORDERABLES Final Result * CT Chest w/ Contrast (07/02/2024 10:35 AM EST) Anatomical Region Laterality Modality Body, Chest Computed Tomogra phy 07/02/2024 10:3 5 AM EST Narrative 07/02/2024 12:11 PM EST ? [facility] ?[address] ?[place] [address] ? CT Scan Report ? Signed ? Patient: Emerita,Janine ?MR#: [id number] ?? 34 ? : 1940 ?Acct:[id number] ? Age/Sex: 83 / F ?ADM Date: 07/02/24 ? Loc: HO.CT ? Attending Dr: Yosef Wolff MD ? Ordering Physician: Yosef Wolff MD ?? Date of Service: 07/02/24 ?? Procedure(s): CT chest w IV con ?? Accession Number(s): [id number] ? cc: Yosef Wolff MD; Sarah Mathews MD ? Report Number: ?? [id number]: Total DLP = ?? 85.00 mGy-cm ?? [...] DD/ 1035 ? TD/TT: 07/02/24 1103 ? Quality Review Specialist: ? Procedure Note Umm Giraldo - 07/02/[address] [address] Scan Report Signed Patient: Vanesa Felder#: [id number] 34 : 2Acct:[id number] Age/Sex: 83 / FADM Date: 07/02/24 Loc: HO.CT Attending Dr: Yosef Wolff MD Ordering Physician: Yosef Wolff MD Date of Service: 07/02/24 Procedure(s): CT chest w IV con Accession Number(s): [id number] cc: Yosef Wolff MD; Sarah Mathews MD Report Number: [id number]: Total DLP = 85.00 mGy-cm EXAMINATION: CT [...] by: Fito Willams MD 07/02/2024 12:08 PM [facility] Dictated By: Fito Weiss MD Signed By: <Electronically signed by Fito aGlan MDin OV> 07/02/24 1208 DD/ 1035 TD/TT: 07/02/24 1103 Quality Review Specialist: us [facility] External Provider IMG CT PROCEDURES Final Result * Lipid Panel, Standard (05/09/2024 8:09 AM EST) Triglycerides 48 <150 mg/dL [facility] Comment:Desirable Triglyceri de: less than 150 mg/dLBorderline High Triglyceride 150-199 mg/dLHigh Triglyceride: 200-499 mg/dLVery High Triglyceride: greater than or equal to 5OO mg/dL Cholesterol 158 <200 mg/dL [facility] Comment:Desirable Cholestero l: less than 200 mg/dLBorderline High Cholesterol: 200-239 mg/dLHigh Cholesterol: greater than 239 mg/dL LDL Cholesterol Calculated 82 <100 mg/dL [facility] Comment:Desirable LDL: less than 100 mg/dLNear Optimal/Above Optimal LDL: 110- 129 mg/dLBorderline High LDL: 130-159 mg/dLHigh LDL: 160-189 mg/dLVery High LDL: greater than or equal to 190 mg/dL HDL Cholesterol 67 >40 mg/dL [facility] Comment:Desirable HDL: grea ter than 40 mg/dL Note: This HDL assay may give artificially low results in patients with liver disease. Blood Venous blood specimen / Unknown 05/09/2024 8:09 AM EST 05/09/2024 8:09 AM EST Sarah Mathews MD LAB BLOOD ORDERABLES Final Resul t [facility] [address] [place] [phone] from Last 3 Months or Most Recently Relevant to Health Maintenance Insurance [employer] [facility] MEDICARE ADVANTAGE HMO Care Teams Debt Management Counselor Relationship Specialty Start Date End Date Sarah Mathews MD [address] [place] [phone] PCP - General Family Medicine 04/15/12 [place] 06/15/24
--- OUTSIDE RECORDS SUMMARY | 2024-09-21 13:59 | XMS_ITS | Encounter Summary ---
Author Organization [employer] Address [address] [facility] 7[address] [place] [address] Care Team Providers Care Cnc Mill Programmer Name Role Phone Sarah Mathews MD Primary Care Provider [phone] Reason for Visit * Reason Onset Date Comments Results 10/09/2023 Encounter Details Date Type Department Care Team ([facility] Contact Info) Description 10/09/2023 Telephone [facility] [address] [place], [place] [phone] Sarah Mathews MD [address] [place], [place] [phone] Results Social History Tobacco Use Types Packs/Day [...] ordered:liver panel, BMP, lipid panel from [facility] and printed to [facility] for medical records and for [...] as needed. RN will forward message to [facility] to obtain lab results for provider. TC from pt daughter requesting call back regarding Results. Type of results: labs Date when done: 09/30/23 Facility: [facility] * Telephone Encounter - Melissa Kirby - 10/09/2023 12:35 PM EDT TC from pt daughter requesting call back regarding Results. Type of results: labs Date when done: 09/30/23 Facility: [facility] documented in this encounter Plan of Treatment Upcoming Encounters Date Type Department Care Team (Late st Contact Info) Description 09/28/2024 10:00 AM EDT Office Visit [facility] [address] [place] [address] Sarah Mathews MD [address] [place] [address] documented as of this encounter Visit Diagnoses Not on filedocumented in this encounter Care Teams Cnc Mill Programmer Relationship Specialty Start Date End Date Sarah Mathews MD [address] [place] [phone] PCP - General Family Medicine 04/15/12 [place] BENITES 06/15/24 documented as of this encounter
--- OUTSIDE RECORDS SUMMARY | 2024-09-21 13:59 | XMS_ITS | Encounter Summary ---
Author Organization [employer] Address [address] [facility] 7t [place] [address] Care Team Providers Care Drill Press Operator For Metal Name Role Phone Sarah Mathews MD Primary Care Provider [phone] Reason for Visit * Reason Onset Date Comments FYI 07/20/2024 Encounter Details Date Type Department Care Team ([facility] st Contact Info) Description 07/20/2024 Telephone [facility] [address] [place], [place] [phone] Sarah Mathews MD [address] [place] [address] FYI Social History Tobacco Use Types Packs/Day [...] is your housing situation today? I have rumila banegas 04/10/[address] you [...] - 07/20/2024 9:38 AM EST Tc from [facility] with [facility] calling to inform pt missed today visit next visit is 07/23/24. documented in this encounter Plan of Treatment Upcoming Encounters Date Type Department Care Team (Late st Contact Info) Description 09/28/2024 10:00 AM EDT Office Visit [facility] [address] [place] [address] Sarah Mathews MD [address] [place] [address] documented as of this encounter Visit Diagnoses Not on filedocumented in this encounter Additional Health Concerns Assessment Noted Time PHQ-9 Depression Total Score: 2 04/29/20 24 10:19 AM EST documented as of this encounter Care Teams Drill Press Operator For Metal Relationship Specialty Start Date End Date Sarah Mathews MD [address] [place] [phone] PCP - General Family Medicine 04/15/12 [place] [facility] 06/15/24 documented as of this encounter
== END 2024-09-21 12:51 | disposition home or self-care (01) ==
LOC: HO.HCS 12:20
PROVIDERS: PCP Student in an Organized Health Care Education/Training Program; Visit Provider Internal Medicine Cardiovascular Disease
DX: I34.81 Nonrheumatic mitral (valve) annulus calcification (principal); R79.89 Other specified abnormal findings of blood chemistry
CPT/HCPCS: 99214; G2211

== ENCOUNTER → 2024-09-21 12:19 | Outpatient (BNVA) | payer MEDICARE, MEDICAID, SELFPAY | PROVIDERS: PCP Student in an Organized Health Care Education/Training Program; Visit Provider Internal Medicine Cardiovascular Disease | DX: I34.81 Nonrheumatic mitral (valve) annulus calcification (principal); J44.9 Chronic obstructive pulmonary disease, unspecified; R79.89 Other specified abnormal findings of blood chemistry; F17.210 Nicotine dependence, cigarettes, uncomplicated; Z99.81 Dependence on supplemental oxygen | CPT/HCPCS: 99212 ==

== ENCOUNTER → 2024-10-16 10:12 | Outpatient (BNV) | payer MEDICARE, MEDICAID, SELFPAY | PROVIDERS: PCP Student in an Organized Health Care Education/Training Program; Visit Provider Radiology Diagnostic Radiology | DX: R90.89 Other abnormal findings on diagnostic imaging of central nervous system (principal) | CPT/HCPCS: 70553 ==

== ENCOUNTER 2024-10-16 10:13 | Outpatient (REF) | payer MEDICARE, MEDICAID, SELFPAY ==
--- NOTE | ~2024-10-16 | MR_ITS ---
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 COMPARISON: 05/19/2024, 12/30/2023. TECHNIQUE: Multiplanar, multisequence MRI of the brain was obtained before and after the intravenous administration of 5.5 mL Gadavist. Examination performed on a 1.5 Rukhsana Siemens high-field scanner. FINDINGS: There is no diffusion restriction. There is no intracranial hemorrhage, acute infarction, mass effect, or edema. Ventricles, sulci, and cisterns are normal in size and configuration for patient age. No shift of midline. No abnormal hemosiderin deposition is identified. There are a few scattered punctate and minimally confluent foci of white matter T2 hyperintensity in the periventricular, subcortical, and hemispheric deep white matter, nonspecific. 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 A few subtle foci of encephalomalacia also present in the left middle frontal gyrus, left parietal operculum, left posterior temporal lobe, left periatrial white matter superiorly, in the region of previously seen treated metastases. After the administration of contrast, no pathologic intra or extra-axial contrast enhancement is present to suggest new metastases or recurrence. 2 mm focus of enhancement in the distal right IAC, consistent with a tiny acoustic schwannoma. This is unchanged. Enhancing DVA again noted in the right cerebellar hemisphere superiorly. Midline structures appear normally formed. The pituitary gland appears normal. Posterior fossa structures appear normal. Cerebellar tonsils are appropriately located. Major flow voids are preserved within the skull base. The globes and orbital contents demonstrate bilateral lens replacements. No additional abnormalities. Paranasal sinuses are clear bilaterally. The mastoids and tympanic cavities are normally aerated. Extracranial soft tissues demonstrate no abnormalities. No suspicious bone marrow changes are evident. MR/MR head/brain wo/w con IMPRESSION: 1. No acute intracranial hemorrhage, acute infarction, mass effect, or edema. No definite evidence of new or recurrent metastatic disease. 2. Previously seen vague 3 mm focus of enhancement in the left medial cerebellum is not present on this examination. This was likely artifact. 3. Stable mild encephalomalacia in the right periventricular aranda radiata, and subtle stable foci of gliosis in the regions of previously identified metastatic disease. 4. Stable 2 mm focus of nodular enhancement in the distal right IAC, consistent with known tiny acoustic schwannoma. Electronically signed by: Fab Julio MD 10/16/2024 02:41 PM EDT RP
--- OUTSIDE RECORDS SUMMARY | 2024-10-16 10:39 | XMS_ITS | Clinical Summary ---
Author Organization [email or web address] Address [address] [facility] 7t [place] [address] Care Team Providers Care Ostrich Farm Worker Name Role Phone Sarah Mathews MD Primary Care Provider [phone] Allergies No known active allergies Medications ALPRAZolam (Xanax) 0.25 MG tablet Take 0.25 mg by mouth if needed in the morning and at bedtime for anxiety. 05/11/20 23 Active Multiple Vitamins-Minera ls (CENTRUM SILVER 50+WOMEN PO) Purchases OTC- Take 1 tablet by mouth once daily Active levothyroxine (Synthroid, Levoxyl) 125 MCG tablet Take by mouth before breakfast. Active albuterol (ProAir HFA) 108 (90 Base) MCG/ACT inhaler Inhale 2 puffs every 4 (four) hours if needed for wheezing. 18 g 3 04/29/20 24 Active Blood Pressure kit 1 Units Once per day. 1 kit 07/01/19 25 Active albuterol (2.5 MG/3ML) 0.083% nebulizer solution INHALE 1 VIAL EVERY 4 HOURS NEEDED FOR SHORTNESS OF BREATH 08/05/19 25 Active Spacer/Aero-Hol ding Chambers device Use spacer with albuterol inhaler 1 Device 1 08/13/19 25 Active Fluticasone Furoate-Vilante rol (Breo Ellipta) 100-25 MCG/ACT aerosol powder Inhale 100 mg Once per day. 28 each 3 08/27/19 25 Active pravastatin (Pravachol) 20 MG tablet TAKE 1 TABLET BY MOUTH EVERY NIGHT AT BEDTIME 90 tablet 1 09/29/19 25 Active gemfibrozil (Lopid) 600 MG tabletIndicatio ns:Primary hypertension Take 1 tablet (600 mg) by mouth 2 times daily. 180 tablet 3 09/29/19 25 026 Active pravastatin (Pravachol) 20 MG tablet TAKE 1 TABLET BY MOUTH EVERY NIGHT AT BEDTIME 90 tablet 1 01/23/20 24 025 Discontinued(Re order (will not trigger notification to Pharmacy)) gemfibrozil (Lopid) 600 MG tabletIndicatio ns:Primary hypertension Take 1 tablet (600 mg) by mouth 2 times daily. 90 tablet 3 04/29/20 24 025 Discontinued(Re order (will not trigger notification to Pharmacy)) furosemide (Lasix) 20 MG tablet Take 0.5 tablets (10 mg) by mouth Once per day. 15 tablet 11 08/02/19 25 025 Discontinued Dextromethorpha n-guaiFENesin (Mucinex DM) 30-600 MG tablet sustained-relea se 12 hour Use 1 tab TID 28 tablet 08/27/19 25 025 Discontinued Active Problems Problem Noted [...] Encounters Date Type Department Care Team Description 09/28/2024 10:00 AM EDT Office Visit [facility] [address] [place] [address] Sarah Mathews MD Chronic obstructive pulmonary disease, unspecified COPD type (CMS/HCC) (Primary Dx); PVD (peripheral vascular disease) (CMS/HCC); Primary hypertension 09/28/2024 Travel 08/26/2024 10:45 AM EST Office Visit [facility] [address] [place] [address] Sarah Mathews MD Chronic obstructive pulmonary disease, unspecified COPD type (CMS/HCC) (Primary Dx) 08/26/2024 Travel 08/25/2024 Telephone [facility] [address] [place] [address] Sarah Mathews MD Chart Prep 08/13/2024 10:30 AM EST Office Visit [facility] [address] [place] [address] Melanie Marlow MD Smoker (Primary Dx); Chronic obstructive pulmonary disease, unspecified COPD type (CMS/HCC); Hypoxemia; Atherosclerotic cardiovascular disease 08/13/2024 Travel 08/13/2024 Telephone [facility] [address] [place] [address] Melanie Marolw MD 08/12/2024 Telephone [facility] [address] [place] [address] Sarah Mathews MD ECHO ORDER 08/12/2024 Orders Only [facility] [address] [place] [address] Sarah Mathews MD Edema leg (Primary Dx) 08/06/2024 Telephone [facility] [address] [place], [place] [phone] Bienvenido Canela MD 08/05/2024 Patient Outreach [facility] [address] [place] [address] Sarah Mathews MD Transition Of Care (Tcm) (HDF- scheduled ) 08/05/2024 Telephone [facility] [address] [place] [phone] Sarah Mathews MD Hospital Follow-up 08/03/2024 Orders Only GENERIC EXTERNAL DATA DEPARTMENT Provider, Generic External Data 07/29/2024 10:45 AM EST Office Visit [facility] [address] [place] [address] Sarah Mathews MD Edema leg (Primary Dx); Primary hypertension; Chronic obstructive pulmonary disease, unspecified COPD type (CMS/HCC) 07/29/2024 Orders Only [facility] [address] [place] [address] Sarah Mathews MD 07/29/2024 Telephone [facility] [address] [place] [address] Sarah Mathews MD Medication Question 07/29/2024 Travel 07/28/2024 4:00 PM EST Office Visit [facility] [address] [place] [phone] Sue Hooper MD COPD exacerbation (CMS/HCC) (Primary Dx); Cough, unspecified type 07/28/2024 Telephone [facility] [address] [place] [address] Sarah Mathews MD Nurse Triage 07/22/2024 Patient Outreach [facility] [address] [place] [address] Sarah Mathews MD Pre-visit Planning (SDOH negative, Tobacco screening negative. ) 07/20/2024 Telephone [facility] [address] [place] [address] Sarah Mathews MD FYI from Last 3 [...] Sign Reading Time Taken Comments Blood Pressure 130/69 09/28/2024 9:49 AM EDT Pulse 72 09/28/2024 9:49 AM EDT Temperature 37 ??C (98.6 ??F) 09/28/2024 9:49 AM EDT Respiratory Rate 18 09/28/2024 9:49 AM EDT Oxygen Saturation 98% 09/28/2024 9:49 AM EDT Inhaled Oxygen Concentration - - Weight 57.3 kg (126 lb 6.4 oz) 09/28/2024 9:49 A M EDT Height 165.1 cm (5' 5 ) 09/28/2024 9:49 AM EDT Body Mass Index 21.03 09/28/2024 9:49 AM EDT Plan of Treatment Upcoming Encounters Date Type Department Care Team (Late st Contact Info) Description 12/30/2024 8:45 AM EDT Office Visit [facility] [address] [place] [address] Sarah Mathews MD [address] [place] [address] Health Maintenance Due Date Last Done Comments [...] 07/28/2024 1:21 PM EST Cough, unspecified type LIPID PANEL, STANDARD Routine 05/09/2024 [...] EST Narrative 08/28/2024 3:04 PM EST ? [facility] ?[address] ?[place] [address] ?XRay Report ? Signed ? Patient: Emerita,Janine ?MR#: [id number] ?? 34 ? : 1940 ?Acct:[id number] ? Age/Sex: 84 / F ?ADM Date: 08/26/24 ? Loc: HO.XRAY ? Attending Dr: Sarah Mathews MD ? Ordering Physician: Sarah Mathews MD ?? Date of Service: 08/26/24 ?? Procedure(s): XR chest 2V ?? Accession Number(s): [id number] ? cc: Yosef Wolff MD; Sarah Mathews [...] DD/ 1144 ? TD/TT: 08/26/24 1153 ? Radio Aerial Installer: ? Procedure Note Kimiter, Image - 08/28/2024 [place] [address] XRay Report Signed Patient: Vanesa Felder#: [id number] 33 : 2Acct:[id number] Age/Sex: 84 / FADM Date: 08/26/24 Loc: RAJNI Attending Dr: Sarah Mathews MD Ordering Physician: Sarah Mathews MD Date of Service: 08/26/24 Procedure(s): XR chest 2V Accession Number(s): [id number] cc: Yosef Wolff MD; Sarah Mathews MD [...] Jean Marie Smith MD 08/28/2024 03:02 PM [facility] Dictated By: Jean Marie Smith MD Signed By: <Electronically signed by Jean Marie Smith MD in OV> 08/28/24 1502 DD/ 1144 TD/TT: 08/26/24 1153 Radio Aerial Installer: Sarah Mathews MD IMG XR PROCEDURES Final Result * High Sensitivity Troponin I (08/03/2024 11:52 AM EST) Pathologist [facility] TROPONIN I HIGH SENSITIVITY 4.0 <3.5 - 17.0 ng/L [facility] Comment:The Chávez high sens itivity Troponin-I results should beused in conjunction with other diagnostic information suchas ECG, clinical observations and information, and patientsymptoms to aid in the diagnosis of RI. 08/03/2024 11:5 2 AM EST 08/03/2024 11:58 AM EST Generic External Data Provider LAB BLOOD ORDERAB LES Final Result Performing Organization Address City/State/[facility] Co de Phone Number [facility] [address] [place] [phone] * SARS-CoV-2 RNA, Influenza A/B, and RSV RNA, Ql NAAT (08/03/2024 11:52 AM EST) Pathologist [facility] Influenza A PCR NEGATIVE Negative [facility] Influenza B PCR NEGATIVE Negative [facility] Resp Syncy Virus RNA Qual PCR NEGATIVE Negative [facility] SARS COV2 PCR NEGATIVE Negative [facility] Comment:All test results mus t be [...] use by authorized laboratories.Testing performed on the [employer] GeneXpert utilizingreal-time RT-PCR.All SARS CoV2 and positive influenza A/B results arereported to [facility]. 08/03/2024 11:5 2 AM EST 08/03/2024 12:00 PM EST us Generic External Data Provider LAB MICROBIOLOGY - GENERAL ORDERABLES Final Result [facility] [address] [place] [address] [phone] * (ABNORMAL) CBC auto differential (08/03/2024 11:52 AM EST) White Blood Count 9.6 4.8 - 10.8 X10*3/uL [facility] Red Blood Count 3.46(L) 4.20 - 5.50 X10*6/uL [facility] Hemoglobin 11.6(L) 12.0 - 16.0 g/dl [facility] Hematocrit 37.6 37.0 - 47.0 % [facility] Mean Corpuscular Volume 108.7(H) 80.0 - 98.0 fL [facility] Mean Corpuscular Hemoglobin 33.5(H) 27.0 - 33.0 pg [facility] Mean Corpuscular HGB Conc 30.9(L) 31.0 - 35.0 g/dl [facility] Red Cell Distribution Width 15.3 11.0 - 16.0 % [facility] Platelet Count 194 160 - 400 X10*3/uL [facility] Mean Platelet Volume 9.7 9.4 - 12.3 fL [facility] Neutrophils Percent Auto 82.8(H) 45 - 73 % [facility] Imm Gran Pct Auto 2.2(H) 0.0 - 0.4 % [facility] Lymphocytes Percent Auto 6.8(L) 20 - 40 % [facility] Monocytes Percent Auto 7.3 2 - 11 % [facility] Eosinophils Percent Auto 0.5 0 - 4 % [facility] Basophils Percent Auto 0.4 0 - 2 % [facility] NRBC Pct Auto 0.0 0.0 - 0.2 /100WBC [facility] Neutrophils Absolute Auto 8.0 2.0 - 8.3 x10*3/uL [facility] Imm Gran Abs Auto 0.21(H) 0.00 - 0.03 X10*3/uL [facility] Lymphocytes Absolute Auto 0.7(L) 1.2 - 4.9 X10*3/uL [facility] Monocytes Absolute Auto 0.7 0.1 - 1.2 X10*3/uL [facility] Eosinophils Absolute Auto 0.1 0.0 - 0.4 X10*3/uL [facility] Basophils Absolute Auto 0.0 0.0 - 0.2 X10*3/uL [facility] NRBC Abs Auto 0.000 0.0 - 0.012 X10*3/uL [facility] 08/03/2024 11:5 2 AM EST 08/03/2024 11:58 AM EST us Generic External Data Provider LAB BLOOD ORDERAB LES Final Result Performing Organization Address City/[facility]/ZIP Co de Phone Number [facility] [address] [place] [phone] * Magnesium (08/03/2024 11:52 AM EST) Magnesium 2.0 1.6 - 2.6 mg/dL [facility] 08/03/2024 11:5 2 AM EST 08/03/2024 11:58 AM EST [employer] External Data Provider LAB BLOOD ORDERAB LES Final Result Performing Organization Address [facility] Co de Phone Number [facility] [address] [place] [phone] * (ABNORMAL) Comprehensive Metabolic Panel (08/03/2024 11:52 AM EST) Sodium 143 135 - 145 mmol/L [facility] Potassium 3.9 3.3 - 5.1 mmol/L [facility] Chloride 107 96 - 108 mmol/L [facility] Carbon Dioxide 29 22 - 29 mmol/L [facility] Anion Gap 11(L) 12 - 20 [facility] Urea Nitrogen (BUN) 28(H) 9 - 16 mg/dL [facility] Creatinine, Serum 0.94 0.5 - 1.4 mg/dL [facility] Creatinine Clr Calc Pharmacy 39.1 [facility] Comment:Provided height and weight: 162.56 cm,56.245 kg.eGFR (calculated from the MDRD study equation) and eCrCl(calculated from the Cockcroft-Gault equation) are based ondifferent parameters and may not yield comparable results.If eCrCl result is absurd, please check patient'sheight/weight. Estimated Glomerular Filt Rate 57 [facility] Comment:Chronic Kidney Disea se: Estimated GFR < 60 mL/min/1.09t3Wctwgw Kidney Disease: Estimated GFR < 15 mL/min/1.73m2 Glucose 95 60 - 115 mg/dL [facility] Calcium 8.8 8.4 - 10.2 mg/dL [facility] Bilirubin, Total 0.3 0.0 - 1.0 mg/dL [facility] Aspartate Amino Transferase 19 5 - 31 U/L [facility] Alanine Aminotransferase <6 0 - 31 U/L [facility] Total Protein 6.7 6.5 - 8.0 g/dL [facility] Albumin Level 3.7 3.5 - 5.0 g/dL [facility] Alkaline Phosphatase 67 39 - 117 U/L [facility] 08/03/2024 11:5 2 AM EST 08/03/2024 11:58 AM EST us Generic External Data Provider LAB BLOOD ORDERAB LES Final Result [facility] [address] [place] [phone] * HOLD LT BLUE - POSSIBLE COAG (08/03/2024 11:50 AM EST) Hold Lt Blue - Possible Coag SEE NOTE [facility] Comment:Specimen will be hel d untested for 4 hours. Call Hematologyif testing is desired. 08/03/2024 11:5 0 AM EST 08/03/2024 12:02 PM EST us Generic External Data Provider LAB BLOOD ORDERAB LES Final Result [facility] [address] [place] [phone] [phone] * XR Chest 1 View (08/03/2024 11:00 AM EST) Anatomical Region Laterality Modality Chest Radiographic Preeti ging 08/03/2024 11:0 0 AM EST Narrative 08/03/2024 11:26 AM EST ? [facility] ?[address] ?[place] [address] ?XRay Report ? Signed ? Patient: Janine Felder ?MR#: [id number] ?? 34 ? : 1940 ?Acct:[id number] ? Age/Sex: 84 / F ?ADM Date: 08/03/24 ? Loc: HO.ED ? Attending Dr: ? Ordering Physician: Mery Reinoso ?? Date of Service: 08/03/24 ?? Procedure(s): XR chest 1V ?? Accession Number(s): [id number] ? cc: Mery Reinoso; Sarah Mathews MD [...] DD/ 1100 ? TD/TT: 08/03/24 1110 ? Radio Aerial Installer: SAMMY ? Procedure Note Donotuseinterpreter, Image - 08/03/[address] [address] XRay Report Signed Patient: Vanesa Felder#: [id number] 34 : 2Acct:[id number] Age/Sex: 84 / FADM Date: 08/03/24 Loc: HO.ED Attending Dr: Ordering Physician: Mery Reinoso Date of Service: 08/03/24 Procedure(s): XR chest 1V Accession Number(s): [id number] cc: Mery Reinoso; Sarah Mathews MD EXAMINATION: [...] 08/03/24 1124 DD/ 1100 TD/TT: 08/03/24 1110 Radio Aerial Installer: SAMMY [facility] External Provider IMG XR PROCEDURES Final Result * POCT Rapid Influenza B CHÁVEZ ID NOW (07/28/2024 1:36 PM EST) Influenza B Negative Negative, Indeterminate [facility] Swab 07/28/2024 1:36 PM EST Sue Hooper MD POINT OF CARE TEST ENTER/EDIT ORDERABLES Final Result Performing Organization Address [facility]/ZIP Co de Phone Number [facility] [address] [place] [phone] * POCT Rapid Influenza A CHÁVEZ ID NOW (07/28/2024 1:36 PM EST) Influenza A Negative Negative, Indeterminate [facility] Swab 07/28/2024 1:36 PM EST Sue Hooper MD POINT OF CARE TEST ENTER/EDIT ORDERABLES Final Result Performing Organization Address [facility] Co de Phone Number [facility] [address] [place] [phone] * POCT Rapid Covid-19 BinaxNOW (07/28/2024 1:21 PM EST) Pathologist [facility] Rapid COVID Ag Negative Swab 07/28/2024 1:21 PM EST Sue Hooper MD POINT OF CARE TEST ENTER/EDIT ORDERABLES Final Result * Lipid Panel, Standard (05/09/2024 8:09 AM EST) Triglycerides 48 <150 mg/dL [facility] Comment:Desirable Triglyceri de: less than 150 mg/dLBorderline High Triglyceride 150-199 mg/dLHigh Triglyceride: 200-499 mg/dLVery High Triglyceride: greater than or equal to 5OO mg/dL Cholesterol 158 <200 mg/dL [facility] Comment:Desirable Cholestero l: less than 200 mg/dLBorderline High Cholesterol: 200-239 mg/dLHigh Cholesterol: greater than 239 mg/dL LDL Cholesterol Calculated 82 <100 mg/dL [facility] Comment:Desirable LDL: less than 100 mg/dLNear Optimal/Above Optimal LDL: 110- 129 mg/dLBorderline High LDL: 130-159 mg/dLHigh LDL: 160-189 mg/dLVery High LDL: greater than or equal to 190 mg/dL HDL Cholesterol 67 >40 mg/dL [facility] Comment:Desirable HDL: great er than 40 mg/dL Note: This HDL assay may give artificially low results in patients with liver disease. Blood Venous blood specimen / Unknown 05/09/2024 8:09 AM EST 05/09/2024 8:09 AM EST us Sarah Mathews MD LAB BLOOD ORDERABLES Final Resul t [facility] [address] [place] [address] [phone] from Last 3 Months or Most Recently Relevant to Health Maintenance Insurance [facility] [place] [address] * Guarantor: Janine Felder Account Type Relation to Patient Date of Phone Billing Address Personal/Family Self [place], [place] * Guarantor: Janine Felder Account Type Relation to Patient Date of Phone Billing Address Personal/Family Self [place], [place] Care Teams Ostrich Farm Worker Relationship Specialty Start Date End Date Sarah Mathews MD [address] [place] [phone] PCP - General Family Medicine 04/15/12 [place] Daniella 06/15/24
--- OUTSIDE RECORDS SUMMARY | 2024-10-16 10:39 | XMS_ITS | Encounter Summary ---
Author Organization [employer] Address [address] [facility] [address] [place] [address] Care Team Providers Care Engineering Technician Parking Name Role Phone Sarah Mathews MD Primary Care Provider [phone] Reason for Visit * Reason Onset Date Comments Nurse Triage 07/01/2024 Encounter Details Date Type Department Care Team ([facility] st Contact Info) Description 07/01/2024 Telephone [facility] [address] [place] [address] Sarah Mathews MD [address] [place], [place] [phone] Nurse Triage Social History Tobacco Use Types [...] to ED visit. Pt was seen by internal control analyst yesterday and had a BP of 84/48. [...] Description 12/30/2024 8:45 AM EDT Office Visit [facility] [address] [place] [address] Sarah Mathews MD [address] [place] [address] documented as of this encounter Visit Diagnoses Not on filedocumented in this encounter Additional Health Concerns Assessment Noted Time PHQ-9 Depression Total Score: 2 04/29/20 24 10:19 AM EST documented as of this encounter Care Teams Engineering Technician Parking Relationship Specialty Start Date End Date Sarah Mathews MD [address] [place] [phone] PCP - General Family Medicine 04/15/12 [place] BENITES 06/15/24 documented as of this encounter
--- OUTSIDE RECORDS SUMMARY | 2024-10-16 10:39 | XMS_ITS | Encounter Summary ---
Author Organization [employer] Address [address] [facility] 7t [place] [address] Care Team Providers Care Filling Station Attendant Name Role Phone Sarah Mathews MD Primary Care Provider [phone] Reason for Visit * Reason Onset Date Comments FYI 07/20/2024 Encounter Details Date Type Department Care Team ([facility] st Contact Info) Description 07/20/2024 Telephone C [facility] [address] [place], [place] [phone] Sarah Mathews MD [address] [place] [address] FYI Social History Tobacco Use Types Packs/Day [...] - 07/20/2024 9:38 AM EST [facility] calling to inform pt missed today visit next visit is 07/23/24. documented in this encounter Plan of Treatment Upcoming Encounters Date Type Department Care Team (Late st Contact Info) Description 12/30/2024 8:45 AM EDT Office Visit [facility] [address] [place] [address] Sarah Mathews MD [address] [place] [address] documented as of this encounter Visit Diagnoses Not on filedocumented in this encounter Additional Health Concerns Assessment Noted Time PHQ-9 Depression Total Score: 2 04/29/20 24 10:19 AM EST documented as of this encounter Care Teams Filling Station Attendant Relationship Specialty Start Date End Date Sarah Mathews MD [address] [place] [phone] PCP - General Family Medicine 04/15/12 [place] [facility] 06/15/24 documented as of this encounter
--- OUTSIDE RECORDS SUMMARY | 2024-10-16 10:39 | XMS_ITS | Encounter Summary ---
Author Organization [employer] Address [address] [facility] [address] [place] [address] Care Team Providers Care Printer Machine Name Role Phone Sarah Mathews MD Primary Care Provider [phone] Reason for Visit * Reason Onset Date Comments FYI 09/16/2023 Encounter Details Date Type Department Care Team ([facility] st Contact Info) Description 09/16/2023 Telephone C [facility] [address] [place], [place] [phone] Sarah Mathews MD [address] [place], [place] [phone] FYI Social History Tobacco Use Types Packs/Day [...] MG tablet. Any questions, contact [place] at [phone] documented in this encounter Plan of Treatment Upcoming Encounters Date Type Department Care Team ([facility] st Contact Info) Description 12/30/2024 8:45 AM EDT Office Visit [facility] [address] [place] [address] Sarah Mathews MD [address] [place] [address] documented as of this encounter Visit Diagnoses Not on filedocumented in this encounter Care Teams Printer Machine Relationship Specialty Start Date End Date Sarah Mathews MD [address] [place] [phone] PCP - General Family Medicine 04/15/12 [place] BENITES 06/15/24 documented as of this encounter
--- OUTSIDE RECORDS SUMMARY | 2024-10-16 10:39 | XMS_ITS | Encounter Summary ---
Author Organization [employer] Address [address] [facility] 7t [place] [address] Care Team Providers Care Soyfreeze Operator Name Role Phone Sarah Mathews MD Primary Care Provider [phone] Reason for Visit * Reason Onset Date Comments Hospital Follow-up 08/05/2024 Encounter Details Date Type Department Care Team ([facility] st Contact Info) Description 08/05/2024 Telephone [facility] [address] [place] [address] Sarah Mathews MD [address] [place], [place] [phone] Hospital Follow-up Social History Tobacco Use Types [...] from pt requesting a HDF appt. Hospital: [facility] Date of admission: 08/03/2024 Discharge date: 08/05/2024 Diagnosed: Respiratory Problems and UTI *Send message to [place] Clinical Care Coordinators documented in this encounter Plan of Treatment Upcoming Encounters Date Type Department Care Team (Late st Contact Info) Description 12/30/2024 8:45 AM EDT Office Visit [facility] PEDS [address] [place] [address] Sarah Mathews MD [address] [place] [address] documented as of this encounter Visit Diagnoses Not on filedocumented in this encounter Additional Health Concerns Assessment Noted Time PHQ-9 Depression Total Score: 2 04/29/20 24 10:19 AM EST documented as of this encounter Care Teams Soyfreeze Operator Relationship Specialty Start Date End Date Sarah Mathews MD [address] [place] [address] PCP - General Family Medicine [facility] documented as of this encounter
--- OUTSIDE RECORDS SUMMARY | 2024-10-16 10:39 | XMS_ITS | Encounter Summary ---
Author Organization [email or web address] Address 75 [facility] 7t [place] [address] Care Team Providers Care Procedure Writer Name Role Phone Sarah Mathews MD Primary Care Provider [phone] Reason for Visit * Reason Onset Date Comments FYI 06/16/2024 Encounter Details Date Type Department Care Team ([facility] st Contact Info) Description 06/16/2024 Telephone [facility] MEDICINE [address] [place] [address] Sarah Mathews MD [address] [place], [place] [phone] FYI Social History Tobacco Use Types Packs/Day [...] Description 12/30/2024 8:45 AM EDT Office Visit [facility] MED & PEDS [address] [place] [address] Sarah Mathews MD 505 [place] [address] documented as of this encounter Visit Diagnoses Not on filedocumented in this encounter Additional Health Concerns Assessment Noted Time PHQ-9 Depression Total Score: 2 04/29/20 24 10:19 AM EST documented as of this encounter Care Teams Procedure Writer Relationship Specialty Start Date End Date Sarah Mathews MD [address] [place] [id number] PCP - General Family Medicine 04/15/12 Juan BENITES 06/15/24 documented as of this encounter
--- OUTSIDE RECORDS SUMMARY | 2024-10-16 10:39 | XMS_ITS | Encounter Summary ---
Author Organization [employer] Address 75 [facility] 7t [place] [address] Care Team Providers Care Tap Grinder Name Role Phone Sarah Mathews MD Primary Care Provider [phone] Reason for Referral * Consultation (Routine) - Closed Specialty Diagnoses / Procedures Referred By Contac t Referred To Contact Pharmacy Diagnoses Urinary tract infection without hematuria, site unspecified Tash Walker, PharmD [address] [place] [address] Phone: tel: fax: Referral ID Status Reason Start Date Expiration Date V isits Requested Visits Authorized [id number] Closed Continuity of Care 09/12/2023 09/11/2024 1 1 Encounter Details Date Type Department Care Team (Late st Contact Info) Description 09/12/2023 Orders Only [facility] MEDICINE [address] [place], [place] [phone] Tash Walker, PharmD [address] [place], [place] [phone] Urinary tract infection without hematuria, site unspecified [...] Description 12/30/2024 8:45 AM EDT Office Visit [facility] MED & PEDS [address] [place] [address] Sarah Mathews MD 505 [place] [address] Scheduled Referrals Name Type Priority Associated Diagnoses Orde r Schedule Referral to Pharmacy [facility] Outpatient Referral Routine Urinary tract infection without hematuria, site unspecified Ordered: 09/12/2023 documented as of this encounter Visit Diagnoses Diagnosis Urinary tract infection without hematuria, site unspecified- Primary documented in this encounter Care Teams Tap Grinder Relationship Specialty Start Date End Date Sarah Mathews MD [address] [place] [address] PCP - General Family Medicine 04/15/12 Juan BENITES 06/15/24 documented as of this encounter
--- OUTSIDE RECORDS SUMMARY | 2024-10-16 10:39 | XMS_ITS | Encounter Summary ---
Author Organization [employer] Address 75 [facility] 7t [place] [address] Care Team Providers Care Coach Name Role Phone Sarah Mathews MD Primary Care Provider [phone] Reason for Visit * Reason Comments Med Refill Encounter Details Date Type Department Care Team ([facility] st Contact Info) Description 02/09/2024 Refill [facility] MEDICINE [address] [place] [address] Sarah Mathews MD [address] [place], [place] [phone] Primary hypertension Social History Tobacco Use Types [...] Description 12/30/2024 8:45 AM EDT Office Visit [facility] MED & PEDS [address] [place] [address] Sarah Mathews MD 505 [place] [address] documented as of this encounter Visit Diagnoses Diagnosis Primary hypertension Unspecified essential hypertension documented in this encounter Care Teams Coach Relationship Specialty Start Date End Date Sarah Mathews MD [address] [place] [address] PCP - General Family Medicine 04/15/12 Juan Daniella 06/15/24 documented as of this encounter
--- OUTSIDE RECORDS SUMMARY | 2024-10-16 10:39 | XMS_ITS | Encounter Summary ---
Author Organization [employer] Address 75 [facility] 7t [place] [address] Care Team Providers Care Machine Stone Polisher Apprentice Name Role Phone Sarah Mathews MD Primary Care Provider [phone] Reason for Visit * Reason Onset Date Comments Results 10/09/2023 Encounter Details Date Type Department Care Team ([facility] Contact Info) Description 10/09/2023 Telephone [facility] MED & PEDS [address] [place], [place] [phone] Sarah Mathews MD [address] [place], [place] [phone] Results Social History Tobacco Use Types Packs/Day [...] for ordered:liver panel, BMP, lipid panel from [facility] and printed to [facility] for medical records and for providerto [...] as needed. RN will forward message to [facility] to obtain lab results for provider. TC from pt daughter requesting call back regarding Results. Type of results: labs Date when done: 09/30/23 Facility: [facility] * Telephone Encounter - Melissa Kirby - 10/09/2023 12:35 PM EDT TC from pt daughter requesting call back regarding Results. Type of results: labs Date when done: 09/30/23 Facility: [facility] documented in this encounter Plan of Treatment Upcoming Encounters Date Type Department Care Team (Late st Contact Info) Description 12/30/2024 8:45 AM EDT Office Visit [facility] MED & PEDS [address] [place] [address] Sarah Mathews MD [address] [place] [address] documented as of this encounter Visit Diagnoses Not on filedocumented in this encounter Care Teams Machine Stone Polisher Apprentice Relationship Specialty Start Date End Date Sarah Mathews MD [address] [place] [address] PCP - General Family Medicine 04/15/12 Juan BENITES 06/15/24 documented as of this encounter
--- OUTSIDE RECORDS SUMMARY | 2024-10-16 10:39 | XMS_ITS | Encounter Summary ---
Author Organization [employer] Address 75 [facility] 7t [place] [address] Care Team Providers Care Business Manager Name Role Phone Sarah Mathews MD Primary Care Provider [phone] Reason for Visit * Reason Onset Date Comments Hospital Follow-up 09/11/2023 Encounter Details Date Type Department Care Team ([facility] Contact Info) Description 09/11/2023 Telephone C [facility] MED & PEDS [address] [place], [place] [phone] Sarah Mathews MD [address] [place], [place] [phone] Hospital Follow-up Social History Tobacco Use Types [...] from pt requesting a HDF appt. [place] [facility] [place] of admission: 09/06 Discharge date: 09/08 Diagnosed: UTI, Fall, Acute kidney injury, Hypokalemia Please contact daughter at [phone] documented in this encounter Plan of Treatment Upcoming Encounters Date Type Department Care Team (Late st Contact Info) Description 12/30/2024 8:45 AM EDT Office Visit [facility] MED & PEDS 505 [place] [address] Sarah Mathews MD [address] [place] [address] documented as of this encounter Visit Diagnoses Not on filedocumented in this encounter Care Teams Business Manager Relationship Specialty Start Date End Date Sarah Mathews MD [address] [place] [address] PCP - General Family Medicine 04/15/12 Juan A 06/15/24 documented as of this encounter
--- OUTSIDE RECORDS SUMMARY | 2024-10-16 10:39 | XMS_ITS | Encounter Summary ---
Author Organization [employer] Address 75 [facility] 7t [place] [address] Care Team Providers Care Pcb Designer Name Role Phone Sarah Mathews MD Primary Care Provider [phone] Reason for Visit * Reason Onset Date Comments Medication Question 07/29/2024 Encounter Details Date Type Department Care Team ([facility] st Contact Info) Description 07/29/2024 Telephone C [facility] MED [facility] PEDS 505 [place], [place] [phone] Sarah Mathews MD 505 [place], [place] [phone] Medication Question Social History Tobacco Use Types [...] give Pt 10 mg. Contact pt at [phone] * Telephone Encounter - Abel Rutledge - 07/30/2024 4:08 PM EST Tc from Pt daughter requesting that 10 mg furosemide (Lasix) could be sent to [facility] #[id number] AT [facility]. Pt daughter is also waiting for call to schedule and endogram for pt. Daughter Contact: [phone] * Telephone Encounter - Sarah Mathews MD - 07/29/2024 6:33 PM EST Please send verbal order of 10mg.[facility] does not let me send 10mg * Telephone Encounter - Melissa Kirby - 07/29/2024 12:15 PM EST Tc from pt daughter Lamar calling to inform went to corn picker medication furosemide (Lasix) 20 MG tablet but was advised by a pharmacist to contact pcp office to switch script over to 10 mg instead of 20 mg so that its easier to spilt medication in half. Any further questions please contact phone # [phone] documented in this encounter Plan of Treatment Upcoming Encounters Date Type Department Care Team ([facility] st Contact Info) Description 12/30/2024 8:45 AM EDT Office Visit [facility] MED & PEDS [address] [place] [address] Sarah Mathews MD 505 [place] [address] documented as of this encounter Visit Diagnoses Not on filedocumented in this encounter Additional Health Concerns Assessment Noted Time PHQ-9 Depression Total Score: 2 04/29/20 24 10:19 AM EST documented as of this encounter Care Teams Pcb Designer Relationship Specialty Start Date End Date Sarah Mathews MD [address] [place] [id number] PCP - General Family Medicine 04/15/12 Juan BENITES 06/15/24 documented as of this encounter
[2024-10-16] MEDS: gadobutroL 7.5 ML VIAL IVPUSH (11:01)
== END 2024-10-16 10:14 | disposition home or self-care (01) ==
LOC: HO.MRI 10:13
PROVIDERS: PCP Student in an Organized Health Care Education/Training Program; Visit Provider Internal Medicine Medical Oncology
DX: C79.31 Secondary malignant neoplasm of brain (principal)
CPT/HCPCS: 70553; A9585

== ENCOUNTER 2024-11-03 09:45 | Outpatient (REF) | payer MEDICARE, MEDICAID, SELFPAY ==
--- NOTE | ~2024-11-03 | CT_ITS ---
CLINICAL HISTORY: Follow-up imaging for small-cell carcinoma lung CT chest with contrast Comparison: 07/02/2024 Findings: Irregular right upper lobe densities are essentially unchanged. Findings most likely represent scarring. PET imaging could be used to exclude active disease. No new parenchymal abnormalities are identified. No significant mediastinal adenopathy. No significant free pleural fluid. Dense coronary artery calcifications noted. No significant focal bony abnormalities. Right infusion catheter tip SVC. Impression: Stable appearance of right upper lobe as above Consider PET imaging as needed to exclude active disease This document has been electronically signed by: Michael Loza MD on 11/03/2024 19:17:45
[2024-11-03] MEDS: iohexoL 350 MG/ML 100 ML INFUS..BTL IV (10:26)
--- OUTSIDE RECORDS SUMMARY | 2024-11-03 10:26 | XMS_ITS | Encounter Summary ---
Author Organization [employer] Address 75 [facility] 7t [place] [address] Care Team Providers Care Claims Representative Name Role Phone Sarah Mathews MD Primary Care Provider [phone] Reason for Visit * Reason Onset Date Comments Medication Question 07/29/2024 Encounter Details Date Type Department Care Team ([facility] st Contact Info) Description 07/29/2024 Telephone C [facility] MED [facility]EDS [address] [place], [place] [phone] Sarah Mathesw MD [address] [place], [place] [phone] Medication Question Social History Tobacco Use Types [...] give Pt 10 mg. Contact pt at [phone] * Telephone Encounter - Abel Rutledge - 07/30/2024 4:08 PM EST Tc from Pt daughter requesting that 10 mg furosemide (Lasix) could be sent to [facility] #[id number] AT [facility]. Pt daughter is also waiting for call to schedule and endogram for pt. Daughter Contact: [phone] * Telephone Encounter - Sarah Mathews MD - 07/29/2024 6:33 PM EST Please send verbal order of 10mg.[facility] does not let me send 10mg * Telephone Encounter - Melissa Kirby - 07/29/2024 12:15 PM EST Tc from pt daughter Lamar calling to inform went to garbage pick up man medication furosemide (Lasix) 20 MG tablet but was advised by a pharmacist to contact pcp office to switch script over to 10 mg instead of 20 mg so that its easier to spilt medication in half. Any further questions please contact phone # [phone] documented in this encounter Plan of Treatment Upcoming Encounters Date Type Department Care Team ([facility] st Contact Info) Description 12/30/2024 8:45 AM EDT Office Visit [facility] CHC MED & PEDS [address] [place] [address] Sarah Mathews MD [address] [place] [address] documented as of this encounter Visit Diagnoses Not on filedocumented in this encounter Additional Health Concerns Assessment Noted Time PHQ-9 Depression Total Score: 2 04/29/20 24 10:19 AM EST documented as of this encounter Care Teams Claims Representative Relationship Specialty Start Date End Date Sarah Mathews MD [address] [place] [id number] PCP - General Family Medicine 04/15/12 Juan BENITES 06/15/24 documented as of this encounter
--- OUTSIDE RECORDS SUMMARY | 2024-11-03 10:27 | XMS_ITS | Encounter Summary ---
Author Organization [employer] Address 75 [facility] 7t [place] [address] Care Team Providers Care Golf Course Patroller Name Role Phone Sarah Mathews MD Primary Care Provider [phone] Reason for Visit * Reason Onset Date Comments Durable Medical Equipment 10/26/2024 Encounter Details Date Type Department Care Team ([facility] st Contact Info) Description 10/26/2024 Telephone [facility] MED & PEDS [address] [place], [place] [phone] Sarah Mathews MD [address] [place] [address] Durable Medical Equipment Social History Tobacco Use Types Packs/Day Years [...] encounter Miscellaneous Notes * Telephone Encounter - Rani Walker LPN - 10/29/2024 12:25 PM EDT Nurse returned Call no answer. If call is turn massage was t inform pt will have to pay of out pocket due to insurance no covering request , Pt daughter states her mother compression socks were denied, they stated insurance wont cover, daughter requesting an alternative * Telephone Encounter - Vicenta Lassiter - 10/26/2024 11:59 AM EDT Pt daughter states her mother compression socks were denied, they stated insurance wont cover, daughter requesting an alternative documented in this encounter Plan of Treatment Upcoming Encounters Date Type Department Care Team (Late st Contact Info) Description 12/30/2024 8:45 AM EDT Office Visit [facility] CHC MED & PEDS [address] [place] [address] Sarah Mathews MD 505 [place] [address] documented as of this encounter Visit Diagnoses Not on filedocumented in this encounter Additional Health Concerns Assessment Noted Time PHQ-9 Depression Total Score: 2 11/06/20 24 10:19 AM EST documented as of this encounter Care Teams Golf Course Patroller Relationship Specialty Start Date End Date Sarah Mathews MD [address] [place], [place] [address] [place] [address] PCP - General Family Medicine 04/15/12 Juan BENITES 06/15/24 documented as of this encounter
--- OUTSIDE RECORDS SUMMARY | 2024-11-03 10:27 | XMS_ITS | Clinical Summary ---
Author Organization [employer] Address 75 [facility] 7t [place] [address] Care Team Providers Care Hospice Art Therapist Name Role Phone Sarah Mathews MD Primary Care Provider [phone] Allergies No known active allergies Medications ALPRAZolam (Xanax) 0.25 MG tablet Take 0.25 mg by mouth if needed in the morning and at bedtime for anxiety. 3 Active Multiple Vitamins-Minerals (CENTRUM SILVER 50+WOMEN PO) Purchases OTC- Take 1 tablet by mouth once daily Active levothyroxine (Synthroid, Levoxyl) 125 MCG tablet Take by mouth before breakfast. Active albuterol (ProAir HFA) 108 (90 Base) MCG/ACT inhaler Inhale 2 puffs every 4 (four) hours if needed for wheezing. 18 g 3 4 Active Blood Pressure kit 1 Units Once per day. 1 kit 5 Active albuterol (2.5 MG/3ML) 0.083% nebulizer solution INHALE 1 VIAL EVERY 4 HOURS NEEDED FOR SHORTNESS OF BREATH 5 Active Spacer/Aero-Holdi ng Chambers device Use spacer with albuterol inhaler 1 Device 1 5 Active Fluticasone Furoate-Vilantero l (Breo Ellipta) 100-25 MCG/ACT aerosol powder Inhale 100 mg Once per day. 28 each 3 5 Active pravastatin (Pravachol) 20 MG tablet TAKE 1 TABLET BY MOUTH EVERY NIGHT AT BEDTIME 90 tablet 1 5 Active gemfibrozil (Lopid) 600 MG tabletIndications :Primary hypertension Take 1 tablet (600 mg) by mouth 2 times daily. 180 tablet 3 5 09/29/19 26 Active Active Problems Problem Noted Date Diagnosed Date [...] Encounters Date Type Department Care Team Description 10/26/2024 Telephone [facility] [address] [place] [address] Sarah Mathews MD Durable Medical Equipment 10/16/2024 Orders Only [facility] External Provider, [facility] 09/28/2024 10:00 AM EDT Office Visit [facility] [address] [place] [address] Sarah Mathews MD Chronic obstructive pulmonary disease, unspecified COPD type (CMS/HCC) (Primary Dx); PVD (peripheral vascular disease) (CMS/HCC); Primary hypertension 09/28/2024 Travel 08/26/2024 10:45 AM EST Office Visit [facility] [address] [place] [address] Sarah Mathews MD Chronic obstructive pulmonary disease, unspecified COPD type (CMS/HCC) (Primary Dx) 08/26/2024 Travel 08/25/2024 Telephone [facility] [address] [place] [address] Sarah Mathews MD Chart Prep 08/13/2024 10:30 AM EST Office Visit [facility] [address] [place] [address] Melanie Marlow MD Smoker (Primary Dx); Chronic obstructive pulmonary disease, unspecified COPD type (CMS/HCC); Hypoxemia; Atherosclerotic cardiovascular disease 08/13/2024 Travel 08/13/2024 Telephone [facility] [address] [place] [address] Melanie Marlow MD 08/12/2024 Telephone [facility] [address] [place] [address] Sarah Mathews MD ECHO ORDER 08/12/2024 Orders Only [facility] [address] [place] [address] Sarah Mathews MD Edema leg (Primary Dx) 08/06/2024 Telephone [facility] [address] [place] [address] Bienvenido Canela MD from Last 3 Months Immunizations Name Administration [...] AM EDT Office Visit [facility] [address] [place] [address] Sarah Mathews MD [address] [place] [address] Health Maintenance Due Date Last Done Comments Zoster Vaccines (2 of 3) 08/21/2015 06/26/2015 RSV Patients and Patients Aged 60 years or older (1 - 1-dose 75+ series) 2016 COVID-19 Vaccine ( season) 2024 06/06/2022, 03/23/2021, 08/27/2020, Additional history exists Depression Screening 04/29/2025 04/29/2024, 04/29/20 24 SDOH Screening 07/22/2025 07/22/2024 Tobacco Screening 07/28/2025 07/28/2024 Alcohol/Substance Use Screening 07/29/2025 07/29/2024 Lipid Panel 05/09/2029 05/09/2024, 04/01/2024, 12/21/2022, Additional history exists DTaP/Tdap/Td Vaccines (2 [...] Procedure Name Priority Date/Time Associated Diagnosis Comments MR BRAIN W AND WO CONTRAST Routine 10/16/2024 10:35 AM EDT XR CHEST 2 VIEWS Routine 08/26/2024 11:4 4 AM EST Chronic obstructive pulmonary disease, unspecified COPD type (CMS/HCC) LIPID PANEL, STANDARD Routine 05/09/2024 8:09 AM EST Primary hypertension Hypothyroidism, unspecified type from Last 3 Months or Most Recently Relevant to Health Maintenance Results * Mr Brain w/ and w/o Contrast (10/16/2024 10:35 AM EDT) Anatomical Region Laterality Modality Brain Magnetic Resonan ce 10/16/2024 10:3 5 AM EDT Narrative 10/16/2024 2:43 PM EDT ? [facility] ?[address] ?[place] [address] ? Magnetic Resonance Report ? Signed ? Patient: Emerita,Janine ?MR#: [id number] ?? 34 ? : 1940 ?Acct:[id number] ? Age/Sex: 84 / F ?ADM Date: 04/25/25 ? Loc: HO.MRI ? Attending Dr: Yosef Wolff MD ? Ordering Physician: Yosef Wolff MD ?? Date of Service: 10/16/24 ?? Procedure(s): MR head/brain wo/w con ?? Accession Number(s): [id number] ? cc: Yosef Wolff MD; Sarah Mathews MD ? EXAMINATION: ?? MR BRAIN WITHOUT AND WITH CONTRAST ? CLINICAL INFORMATION: ?? 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 ? COMPARISON: ?? 05/19/2024, 12/30/2023. ? TECHNIQUE: ?? Multiplanar, multisequence MRI of the brain was obtained before and ?? after the intravenous administration of 5.5 mL Gadavist. Examination ?? performed on a 1.5 Rukhsana Siemens high-field scanner. ? FINDINGS: ?? There is no diffusion [...] aranda ?? radiata abutting the right lateral ventricle, stable. A few subtle foci ?? of encephalomalacia also present in the left middle frontal gyrus, left ?? parietal operculum, left posterior temporal lobe, left periatrial white ?? matter superiorly, in the region of previously seen treated metastases. ? After the administration of contrast, no pathologic intra or ?? extra-axial contrast enhancement is present to suggest new metastases ?? or recurrence. ? 2 mm focus of enhancement in the [...] new or recurrent metastatic disease. ?? 2. Previously seen vague 3 mm focus of enhancement in the left medial ?? cerebellum is not present on this examination. This was likely artifact. ?? 3. Stable mild encephalomalacia in the right periventricular aranda ?? radiata, and subtle stable foci of gliosis in the regions of previously ?? identified metastatic disease. ?? 4. Stable 2 mm focus of nodular enhancement in the distal right IAC, ?? consistent with known tiny acoustic schwannoma. ? Electronically signed by: ??Fab Julio MD ??10/16/2024 02:41 PM EDT RP ? Dictated By: ?Fab Julio MD ? Signed By: ?<Electronically signed by Fab Julio MD in OV> ?10/16/24 1441 ? DD/ 1035 ? TD/TT: 10/16/24 1101 ? Operations Vice President: ? 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 COMPARISON: 05/19/2024, 12/30/2023. TECHNIQUE: Multiplanar, multisequence MRI of the brain was obtained before and after the intravenous administration of 5.5 mL Gadavist. Examination performed on a 1.5 Rukhsana Siemens high-field scanner. FINDINGS: There is no diffusion restriction. There [...] right aranda radiata abutting the right lateral ventricle, stable. A few subtle foci of encephalomalacia also present in the left middle frontal gyrus, left parietal operculum, left posterior temporal lobe, left periatrial white matter superiorly, in the region of previously seen treated metastases. After the administration of contrast, no pathologic intra or extra-axial contrast enhancement is present to suggest new metastases or recurrence. 2 mm focus of enhancement in the [...] of new or recurrent metastatic disease. 2. Previously seen vague 3 mm focus of enhancement in the left medial cerebellum is not present on this examination. This was likely artifact. 3. Stable mild encephalomalacia in the right periventricular aranda radiata, and subtle stable foci of gliosis in the regions of previously identified metastatic disease. 4. Stable 2 mm focus of nodular enhancement in the distal right IAC, consistent with known tiny acoustic schwannoma. Electronically signed by: Fab Julio MD 10/16/2024 02:41 PM EDT Dictated By: Fab Julio MD Signed By: <Electronically signed by Fab Julio MD in OV> 10/16/24 1441 DD/ 1035 TD/TT: 10/16/24 1101 Operations Vice President: [facility] External Provider IMG MRI PROCEDURES Edited Result - Final * XR Chest 2 Views (08/26/2024 11:44 AM EST) Anatomical Region Laterality Modality Chest Radiographic Preeti ging 08/26/2024 11:4 4 AM EST Narrative 08/28/2024 3:04 PM EST ? [facility] ?[address] ?[place], [place] [address] ?XRay Report ? Signed ? Patient: Janine Felder ?MR#: [id number] ?? 34 ? : 1940 ?Acct:[id number] ? Age/Sex: 84 / F ?ADM Date: 08/26/24 ? Loc: HO.XRAY ? Attending Dr: Sarah Mathews MD ? Ordering Physician: Sarah Mathews MD ?? Date of Service: 08/26/24 ?? Procedure(s): XR chest 2V ?? Accession Number(s): [id number] ? cc: Yosef Wolff MD; Sarah Mathews [...] DD/ 1144 ? TD/TT: 08/26/24 1153 ? Operations Vice President: ? Procedure Note Donotuseinterpreter, Image - 08/28/[address] [address] XRay Report Signed Patient: Vanesa Felder#: [id number] 34 : 2Acct:[id number] Age/Sex: 84 / FADM Date: 08/26/24 Loc: HO.XRAY Attending Dr: Sarah Mathews MD Ordering Physician: Sarah Mathews MD Date of Service: 08/26/24 Procedure(s): XR chest 2V Accession Number(s): [id number] cc: Yosef Wolff MD; Sarah Mathews MD [...] 08/28/24 1502 DD/ 1144 TD/TT: 08/26/24 1153 Operations Vice President: us Sarah Mathews MD IMG XR PROCEDURES Final Result * Lipid Panel, Standard (05/09/2024 8:09 AM EST) Triglycerides 48 <150 mg/dL [facility] Comment:Desirable Triglyceri de: less than 150 mg/dLBorderline High Triglyceride 150-199 mg/dLHigh Triglyceride: 200-499 mg/dLVery High Triglyceride: greater than or equal to 5OO mg/dL Cholesterol 158 <200 mg/dL [facility] Comment:Desirable Cholestero l: less than 200 mg/dLBorderline High Cholesterol: 200-239 mg/dLHigh Cholesterol: greater than 239 mg/dL LDL Cholesterol Calculated 82 <100 mg/dL [facility] Comment:Desirable LDL: less than 100 mg/dLNear Optimal/Above Optimal LDL: 110- 129 mg/dLBorderline High LDL: 130-159 mg/dLHigh LDL: 160-189 mg/dLVery High LDL: greater than or equal to 190 mg/dL HDL Cholesterol 67 >40 mg/dL [facility] Comment:Desirable HDL: great er than 40 mg/dL Note: This HDL assay may give artificially low results in patients with liver disease. Blood Venous blood specimen / Unknown 05/09/2024 8:09 AM EST 05/09/2024 8:09 AM EST us Sarah Mathews MD LAB BLOOD ORDERABLES Final Resul t [facility] [address] [place] [phone] from Last 3 Months or Most Recently Relevant to Health Maintenance Insurance [facility] MEDICARE ADVANTAGE HMO Care Teams Hospice Art Therapist Relationship Specialty Start Date End Date Sarah Mathews MD [address] [place] [address] [place] [address] PCP - General Family Medicine 04/15/12 uJan BENITES 06/15/24
--- OUTSIDE RECORDS SUMMARY | 2024-11-03 10:27 | XMS_ITS | Encounter Summary ---
Author Organization [employer] Address 75 [facility] 7t [place] [address] Care Team Providers Care Sales And Customer Relations Rep Name Role Phone Sarah Mathews MD Primary Care Provider [phone] Reason for Visit * Reason Onset Date Comments Nurse Triage 07/01/2024 Encounter Details Date Type Department Care Team ([facility] st Contact Info) Description 07/01/2024 Telephone [facility] MED[facility]INE [address] [place] [address] Sarah Mathews MD [address] [place], [place] [phone] Nurse Triage Social History Tobacco Use Types [...] for Pt. Pt was admitted to [facility] 06/11/24for dx of copd exacerbation and covid. Pt was discharged 06/13/24. Pt has been having low blood pressure even while in the hospital. Note, Pt has been undergoing chemotherapy prior to ED visit. Pt was seen by optical brightener maker helper yesterday and had a BP of 84/48. [...] this advice and disposition. ASK apt in [facility] today at 240pm. Insurance is verified [...] Description 12/30/2024 8:45 AM EDT Office Visit [facility] MED & PEDS [address] [place] [address] Sarah Mathews MD [address] [place] [address] documented as of this encounter Visit Diagnoses Not on filedocumented in this encounter Additional Health Concerns Assessment Noted Time PHQ-9 Depression Total Score: 2 04/29/20 24 10:19 AM EST documented as of this encounter Care Teams Sales And Customer Relations Rep Relationship Specialty Start Date End Date Sarah Mathews MD [address] [place] [address] PCP - General Family Medicine 04/15/12 [place] BENITES 06/15/24 documented as of this encounter
--- OUTSIDE RECORDS SUMMARY | 2024-11-03 10:27 | XMS_ITS | Encounter Summary ---
Author Organization [employer] Address 75 [facility] 7t [place] [address] Care Team Providers Care Food And Beverage Outlets Manager Name Role Phone Sarah Mathews MD Primary Care Provider [phone] Reason for Visit * Reason Onset Date Comments Hospital Follow-up 09/11/2023 Encounter Details Date Type Department Care Team ([facility] Contact Info) Description 09/11/2023 Telephone C [facility] MED [facility]EDS [address] [place], [place] [phone] Sarah Mathews MD [address] [place], [place] [phone] Hospital Follow-up Social History Tobacco Use Types [...] from pt requesting a HDF appt. Hospital: [facility] Date of admission: 09/06 Discharge date: 09/08 Diagnosed: UTI, Fall, Acute kidney injury, Hypokalemia Please contact daughter at [phone] documented in this encounter Plan of Treatment Upcoming Encounters Date Type Department Care Team (Late st Contact Info) Description 12/30/2024 8:45 AM EDT Office Visit [facility] [address] [place] [address] Sarah Mathews MD [address] [place] [address] documented as of this encounter Visit Diagnoses Not on filedocumented in this encounter Care Teams Food And Beverage Outlets Manager Relationship Specialty Start Date End Date Sarah Mathews MD [address] [place] [address] PCP - General Family Medicine 04/15/12 [place] A 06/15/24 documented as of this encounter
--- OUTSIDE RECORDS SUMMARY | 2024-11-03 10:27 | XMS_ITS | Encounter Summary ---
Author Organization [employer] Address [address] [facility] 7t [place] [address] Care Team Providers Care Sleeve Machine Tender Name Role Phone Sarah Mathews MD Primary Care Provider [phone] Reason for Visit * Reason Onset Date Comments Results 10/09/2023 Encounter Details Date Type Department Care Team ([facility] Contact Info) Description 10/09/2023 Telephone [facility] MED & PEDS [address] [place], [place] [phone] Sarah Mathews MD [address] [place], [place] [phone] Results Social History Tobacco Use Types Packs/Day [...] for ordered:liver panel, BMP, lipid panel from [facility] and printed to [facility] for medical records and for providerto [...] as needed. RN will forward message to [facility] to obtain lab results for provider. TC from pt daughter requesting call back regarding Results. Type of results: labs Date when done: 09/30/23 Facility[place] [facility] [place] Telephone Encounter - Melissa Kirby - 10/09/2023 12:35 PM EDT TC from pt daughter requesting call back regarding Results. Type of results: labs Date when done: 09/30/23 Facility: [facility] documented in this encounter Plan of Treatment Upcoming Encounters Date Type Department Care Team (Late st Contact Info) Description 12/30/2024 8:45 AM EDT Office Visit [facility] [address] [place] [address] Sarah Mathews MD [address] [place] [address] documented as of this encounter Visit Diagnoses Not on filedocumented in this encounter Care Teams Sleeve Machine Tender Relationship Specialty Start Date End Date Sarah Mathews MD [address] [place] [address] PCP - General Family Medicine 04/15/12 [place] BENITES 06/15/24 documented as of this encounter
--- OUTSIDE RECORDS SUMMARY | 2024-11-03 10:27 | XMS_ITS | Encounter Summary ---
Author Organization [employer] Address 75 [facility] 7t [place] [address] Care Team Providers Care Cotton Candy Maker Name Role Phone Sarah Mathews MD Primary Care Provider [phone] Reason for Referral * Consultation (Routine) - Closed Specialty Diagnoses / Procedures Referred By Contac t Referred To Contact Pharmacy Diagnoses Urinary tract infection without hematuria, site unspecified Tash Walker, PharmD [address] [place] [address] Phone: tel: fax: Referral ID Status Reason Start Date Expiration Date V isits Requested Visits Authorized [id number] Closed Continuity of Care 09/12/2023 09/11/2024 1 1 Encounter Details Date Type Department Care Team (Late st Contact Info) Description 09/12/2023 Orders Only [facility] MEDICINE [address] [place], [place] [phone] Tash Walker, PharmD [address] [place], [place] [phone] Urinary tract infection without hematuria, site unspecified [...] Description 12/30/2024 8:45 AM EDT Office Visit [facility] MED [facility] PEDS [address] [place] [address] Sarah Mathews MD [address] [place] [address] Scheduled Referrals Name Type Priority Associated Diagnoses Orde r Schedule Referral to Pharmacy [facility] Outpatient Referral Routine Urinary tract infection without hematuria, site unspecified Ordered: 09/12/2023 documented as of this encounter Visit Diagnoses Diagnosis Urinary tract infection without hematuria, site unspecified- Primary documented in this encounter Care Teams Cotton Candy Maker Relationship Specialty Start Date End Date Sarah Mathews MD [address] [place] [address] PCP - General Family Medicine 04/15/12 [place] BENITES 06/15/24 documented as of this encounter
--- OUTSIDE RECORDS SUMMARY | 2024-11-03 10:27 | XMS_ITS | Encounter Summary ---
Author Organization [employer] Address 75 [facility] 7t [place] [address] Care Team Providers Care Make Ready Mechanic Name Role Phone Sarah Mathews MD Primary Care Provider [phone] Reason for Visit * Reason Onset Date Comments FYI 07/20/2024 Encounter Details Date Type Department Care Team ([facility] st Contact Info) Description 07/20/2024 Telephone C [facility]S [address] [place], [place] [phone] Sarah Mathews MD [address] [place] [address] FYI Social History Tobacco Use Types Packs/Day [...] Miscellaneous Notes * Telephone Encounter - Melissa Kriby - 07/20/2024 9:38 AM EST Tc from [facility] with [facility] calling to inform pt missed today visit next visit is 07/23/24. documented in this encounter Plan of Treatment Upcoming Encounters Date Type Department Care Team (Late st Contact Info) Description 12/30/2024 8:45 AM EDT Office Visit [facility] CH[facility] MED & PEDS [address] [place] [address] Sarah Mathews MD [address] [place] [address] documented as of this encounter Visit Diagnoses Not on filedocumented in this encounter Additional Health Concerns Assessment Noted Time PHQ-9 Depression Total Score: 2 04/29/20 24 10:19 AM EST documented as of this encounter Care Teams Make Ready Mechanic Relationship Specialty Start Date End Date Sarah Mathews MD [address] [place] [address] PCP - General Family Medicine 04/15/12 [place] [facility] 06/15/24 documented as of this encounter
--- OUTSIDE RECORDS SUMMARY | 2024-11-03 10:27 | XMS_ITS | Encounter Summary ---
Author Organization [employer] Address 75 [facility] 7t [place] [address] Care Team Providers Care Carbon Electrodes Supervisor Name Role Phone Sarah Mathews MD Primary Care Provider [phone] Reason for Visit * Reason Onset Date Comments FYI 06/16/2024 Encounter Details Date Type Department Care Team ([facility] st Contact Info) Description 06/16/2024 Telephone [facility] MEDICINE [address] [place] [address] Sarah Mathews MD [address] [place], [place] [phone] FYI Social History Tobacco Use Types Packs/Day [...] 8:45 AM EDT Office Visit [facility] MED & PEDS [address] [place] [address] Sarah Mathews MD [address] [place] [address] documented as of this encounter Visit Diagnoses Not on filedocumented in this encounter Additional Health Concerns Assessment Noted Time PHQ-9 Depression Total Score: 2 04/29/20 24 10:19 AM EST documented as of this encounter Care Teams Carbon Electrodes Supervisor Relationship Specialty Start Date End Date Sarah Mathews MD [address] [place] [address] PCP - General Family Medicine 04/15/12 [place] BENITES 06/15/24 documented as of this encounter
--- OUTSIDE RECORDS SUMMARY | 2024-11-03 10:27 | XMS_ITS | Encounter Summary ---
Author Organization [employer] Address 75 [facility] 7t [place] [address] Care Team Providers Care Sales Vendor Name Role Phone Sarah Mathews MD Primary Care Provider [phone] Reason for Visit * Reason Comments Med Refill Encounter Details Date Type Department Care Team ([facility] st Contact Info) Description 02/09/2024 Refill [facility] MED[facility]INE [address] [place] [address] Sarah Mathews MD [address] [place], [place] [phone] Primary hypertension Social History Tobacco Use Types [...] 8:45 AM EDT Office Visit [facility] MED & PEDS [address] [place] [address] Sarah Mathews MD [address] [place] [address] documented as of this encounter Visit Diagnoses Diagnosis Primary hypertension Unspecified essential hypertension documented in this encounter Care Teams Sales Vendor Relationship Specialty Start Date End Date Sarah Mathews MD [address] [place] [address] PCP - General Family Medicine 04/15/12 [place] 06/15/24 documented as of this encounter
--- OUTSIDE RECORDS SUMMARY | 2024-11-03 10:27 | XMS_ITS | Encounter Summary ---
Author Organization [employer] Address 75 [facility] 7t [place] [address] Care Team Providers Care Operations Administrative Assistant Name Role Phone Sarah Mathews MD Primary Care Provider [phone] Reason for Visit * Reason Onset Date Comments Hospital Follow-up 08/05/2024 Encounter Details Date Type Department Care Team ([facility] st Contact Info) Description 08/05/2024 Telephone [facility] MEDICINE [address] [place] [address] Sarah Mathews MD [address] [place], [place] [phone] Hospital Follow-up Social History Tobacco Use Types [...] from pt requesting a HDF appt. Hospital: [facility] Date of admission: 08/03/2024 Discharge date: 08/05/2024 Diagnosed: Respiratory Problems and UTI *Send message to [facility] Clinical Care Coordinators documented in this encounter Plan of Treatment Upcoming Encounters Date Type Department Care Team (Late st Contact Info) Description 12/30/2024 8:45 AM EDT Office Visit [facility] CHC MED & PEDS [address] [place] [address] Sarah Mathews MD [address] [place] [address] documented as of this encounter Visit Diagnoses Not on filedocumented in this encounter Additional Health Concerns Assessment Noted Time PHQ-9 Depression Total Score: 2 04/29/20 24 10:19 AM EST documented as of this encounter Care Teams Operations Administrative Assistant Relationship Specialty Start Date End Date Sarah Mathews MD [address] [place] [address] PCP - General Family Medicine 04/15/12 [facility] 06/15/24 documented as of this encounter
--- OUTSIDE RECORDS SUMMARY | 2024-11-03 10:27 | XMS_ITS | Encounter Summary ---
Author Organization [employer] Address [address] [place] [address] Care Team Providers Care Olap Developer Name Role Phone Sarah Mathews MD Primary Care Provider [phone] Reason for Visit * Reason Onset Date Comments FYI 09/16/2023 Encounter Details Date Type Department Care Team ([facility] st Contact Info) Description 09/16/2023 Telephone C [facility] [address] [place], [place] [phone] Sarah Mathews MD [address] [place], [place] [phone] FYI Social History Tobacco Use Types Packs/Day [...] MG tablet. Any questions, contact [place] at [phone] documented in this encounter Plan of Treatment Upcoming Encounters Date Type Department Care Team ([facility] st Contact Info) Description 12/30/2024 8:45 AM EDT Office Visit [facility] [address] [place] [address] Sarah Mathews MD [address] [place] [address] documented as of this encounter Visit Diagnoses Not on filedocumented in this encounter Care Teams Olap Developer Relationship Specialty Start Date End Date Sarah Mathews MD [address] [place] [address] PCP - General Family Medicine 04/15/12 Juan BENITES 06/15/24 documented as of this encounter
== END 2024-11-03 09:46 | disposition home or self-care (01) ==
LOC: HO.CT 09:45
PROVIDERS: PCP Student in an Organized Health Care Education/Training Program; Visit Provider Internal Medicine Medical Oncology
DX: C34.90 Malignant neoplasm of unspecified part of unspecified bronchus or lung (principal)
CPT/HCPCS: 71260; Q9967

== ENCOUNTER → 2024-11-03 09:47 | Outpatient (BNV) | payer MEDICARE, MEDICAID, SELFPAY | PROVIDERS: PCP Student in an Organized Health Care Education/Training Program; Visit Provider Radiology Diagnostic Radiology | DX: C34.90 Malignant neoplasm of unspecified part of unspecified bronchus or lung (principal) | CPT/HCPCS: 71260 ==

== ENCOUNTER 2024-12-10 09:19 | Outpatient (AMB) | payer MEDICARE, MEDICAID, SELFPAY ==
[2024-12-10 09:32] VITALS: BP 130/52; PULSE 63; O2SAT 94; BMI 21.5
--- NOTE | 2024-12-10 09:32 | MHC.OFFVIS ---
Vital Signs 12/10/24 09:32 Height 5 ft 5 in Weight 128 lb 15.527 oz BMI 21.5 BP 130/52 L Blood Pressure Location Lt brachial Position Sitting Pulse 63 Pulse Source Pulse Oximeter Pulse Oximetry (%) 94 Oxygen Delivery Method Room Air Intake Visit Reasons: COPD Intake Note: pt is here for follow up and states she is feeling well, using oxygen as needed Glass Sagger Required: No Allergies No Known Allergies (No Known Allergies*) Allergy (Verified 12/10/24 09:39) Medication List - Last Reconciled 12/10/24 by Janet Soliz MD albuterol sulfate 2.5 mg (3 mL) inhalation Q4H PRN albuterol sulfate 90 mcg/actuation (Ventolin HFA) 2 inhalations inhalation Q6H PRN alprazolam 0.25 mg PO BEDTIME PRN blood pressure test kit-large As directed cephalexin 500 mg PO Q12H fluticasone furoate-vilanterol 100-25 mcg/dose (Breo Ellipta) 1 inh inhalation DAILY gemfibrozil 600 mg PO BID levothyroxine 125 mcg PO DAILY@0600 ondansetron 8 mg PO Q8H pravastatin 20 mg PO BEDTIME Do you need a note to return to daycare/school/sports/work: No HPI HPI COPD: Details: 84 years old very pleasant lady is here for follow-up after 3 months. She is getting her chemotherapy regularly every 2 weeks. She has mild intermittent cough denies any wheezing or shortness of breath. She uses oxygen only p.r.n., but her daughter make sure that she puts herself on oxygen for about an hour in the morning in our in the evening. She has the mild cough after eating, but only off and on. She is mostly on pureed are soft diet. [facility] Medical History COPD (chronic obstructive pulmonary disease) Anemia Hypoxemia Smoker Diverticulosis Hypercholesteremia IBS (irritable bowel syndrome) HTN (hypertension) Surgical History Small cell carcinoma Hx of tonsillectomy Hx of appendectomy History of lumpectomy Lymphadenopathy, mediastinal Lung mass H/O colonoscopy Family History Sister Breast cancer Social History Household Members: None Housing: Apartment Do you presently have visiting nurse or other home services: No Alcohol intake: never Patient Tobacco Use Status: Current everyday Tobacco user Tobacco use type: Cigarette Cigarette Packs Per Day: 0.25 Years Smoked: 60 e-Cigarette/Vaping Use: Currently Using Second Hand Smoke Exposure: No Advance Directives Date on File: 08/04/24 service: No Current occupational status: retired Review of Systems Const All systems reviewed & are unremarkable except as noted in HPI and below Eyes Reports no additional complaints ENT Reports no additional complaints Card Denies chest pain, Denies irregular heart rhythm and Denies leg edema Resp Reports as per HPI GI Reports no additional complaints Reports no additional complaints Musc Reports no additional complaints Skin/Breast Reports system reviewed and no additional complaints, except as documented Neuro Reports no additional complaints Psych Reports no additional complaints Physical Exam Vital Signs: Last Vital Signs Pulse 63 12/10/24 09:32 BP 130/52 L 12/10/24 09:32 Pulse Ox 94 12/10/24 09:32 Oxygen Delivery Method Room Air 12/10/24 09:32 BMI result Body Mass Index 21.5 Const General: healthy appearing, comfortable, no acute distress, alert and awake Orientation/consciousness: patient oriented x3 HEENT Head: Yes normal to inspection General nose exam: No nasal polyps present and No nasal discharge present Face and sinus: Yes sinuses nontender Mouth: oropharynx normal Throat: Yes posterior oropharynx normal Eyes General: appearance normal, both eyes and all related structures Neck Neck: Yes normal visual inspection, Yes no lymphadenopathy, Yes trachea midline and Yes no JVD Thyroid: Thyroid normal Chest Chest palpation & inspection: normal inspection of the chest, normal palpation of entire chest wall and no tenderness Breast/axilla inspection: Other (Port-A-Cath site in right pectoral area) Resp Other: Percussion note hyper-resonant. Breath sounds are slightly distant with prolonged expiratory phase. A few exp. wheezes especially over LLL. area No creps. Cardio Palpation: normal PMI Rate: regular rate Rhythm: regular rhythm Heart sounds: no gallops and no murmurs Peripheral pulses: Peripheral pulses 2+ throughout GI Palpation (GI): Soft to palpation, nontender, No hepatosplenomegaly present and no masses Auscultation: normal bowel sounds Back/Spine/Pelvis Thoracic/Lumbar Spine: thoracic and lumbar spine normal to inspection Skin General skin exam: no rashes or lesions noted Neuro General: patient oriented x3 and no focal motor deficits Cranial nerves: Yes CN's II-XII intact bilaterally Extrem General: Yes normal to inspection, Yes no clubbing, cyanosis or edema and Yes no calf tenderness Psych Appearance: grossly normal and well kempt Speech and movement: Normal speech and movement present Assessment & Plan Assessment & Plan (1) COPD (chronic obstructive pulmonary disease): Comment: Chronic obstructive pulmonary disease, mild to moderately severe and stable, Code(s): J44.9 - Chronic obstructive pulmonary disease, unspecified Category: Medical Plan: CONTINUE USING BREO ELLIPTA 100-251 INHALATION DAILY ALBUTEROL HFA 2 PUFFS Q 4-6 HOURS ONLY P.R.N. (2) Smoker: Comment: Past history of smoking for 45 pack years. Quit in 2022 Currently smoking about 4-5 cigarettes a day. Code(s): F17.200 - Nicotine dependence, unspecified, uncomplicated Category: Social Hx Plan: TALKED TO HER ABOUT QUITTING.. SHE IS NOT JB TO QUIT COMPLETELY. ADVISE THAT SHE SHOULD SMOKE ONLY A FEW PUFFS AT A TIME. AND TRY TO USE ONLY ABOUT 2 CIGARETTES FOR THE WHOLE DAY. (3) Hypoxemia: Comment: SHE DOES HAVE EXERCISE INDUCED HYPOXEMIA, AND USES O2 2 L/MINUTE ONLY P.R.N., AFTER ANY BOUT OF PHYSICAL EXERTION. CAME TODAY WITHOUT O2 AND FEELS COMFORTABLE. Code(s): R09.02 - Hypoxemia Category: Medical Plan: USE O2 2 L/MINUTE P.R.N. 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 Henry Sumner . Code(s): C80.1 - Malignant (primary) neoplasm, unspecified Category: Surgical Plan: ADVISED TO CONTINUE FOLLOW-UP AND TREATMENTS BY DR. HENRY SUMNER . Coding Level of Care Code Est Pt Level 3 (15278) Diagnoses COPD (chronic obstructive pulmonary disease) J44.9 Smoker F17.200 Hypoxemia R09.02 Small cell carcinoma C80.1
--- OUTSIDE RECORDS SUMMARY | 2024-12-10 10:01 | XMS_ITS | Encounter Summary ---
Author Organization [employer] Address [address] [facility] [place] [address] Care Team Providers Care Net Solutions Architect Name Role Phone Sarah Mathews MD Primary Care Provider [phone] Reason for Visit * Reason Onset Date Comments Medication Question 07/29/2024 Encounter Details Date Type Department Care Team ([facility] st Contact Info) Description 07/29/2024 Telephone C [facility] [address] [place], [place] [phone] Sarah Mathews MD [address] [place] [address] Medication Question Social History Tobacco Use Types [...] give Pt 10 mg. Contact pt at [phone] * Telephone Encounter - Abel Rutledge - 07/30/2024 4:08 PM EST Tc from Pt daughter requesting that 10 mg furosemide (Lasix) could be sent to [email or web address] #[id number] [facility] [address] [facility]. Pt daughter is also waiting for call to schedule and endogram for pt. Daughter Contact: [phone] * Telephone Encounter - Sarah Mathews MD - 07/29/2024 6:33 PM EST Please send verbal order of 10mg.[facility] does not let me send 10mg * Telephone Encounter - Melissa Kirby - 07/29/2024 12:15 PM EST Tc from pt daughter Lamar calling to inform went to picking tech medication furosemide (Lasix) 20 MG tablet but was advised by a pharmacist to contact pcp office to switch script over to 10 mg instead of 20 mg so that its easier to spilt medication in half. Any further questions please contact phone # [phone] documented in this encounter Plan of Treatment Upcoming Encounters Date Type Department Care Team ([facility] st Contact Info) Description 12/30/2024 8:45 AM EDT Office Visit [facility] [address] [place] [address] Sarah Mathews MD [address] [place] [address] documented as of this encounter Visit Diagnoses Not on filedocumented in this encounter Additional Health Concerns Assessment Noted Time PHQ-9 Depression Total Score: 2 04/29/20 24 10:19 AM EST documented as of this encounter Care Teams Net Solutions Architect Relationship Specialty Start Date End Date Sarah Mathews MD [address] [place] [address] PCP - General Family Medicine 04/15/12 Juan BENITES 06/15/24 documented as of this encounter
== END 2024-12-10 09:53 | disposition home or self-care (01) ==
LOC: HO.HPS 09:20
PROVIDERS: PCP Student in an Organized Health Care Education/Training Program; Visit Provider Internal Medicine
DX: J44.9 Chronic obstructive pulmonary disease, unspecified (principal); F17.200 Nicotine dependence, unspecified, uncomplicated; R09.02 Hypoxemia; C80.1 Malignant (primary) neoplasm, unspecified
CPT/HCPCS: 99213

== ENCOUNTER → 2024-12-10 09:19 | Outpatient (BNVA) | payer MEDICARE, MEDICAID, SELFPAY | PROVIDERS: PCP Student in an Organized Health Care Education/Training Program; Visit Provider Internal Medicine | DX: J44.9 Chronic obstructive pulmonary disease, unspecified (principal); C80.1 Malignant (primary) neoplasm, unspecified; R09.02 Hypoxemia; F17.210 Nicotine dependence, cigarettes, uncomplicated | CPT/HCPCS: 99212 ==

== ENCOUNTER 2024-12-22 07:53 | Outpatient (REF) | payer MEDICARE, MEDICAID, SELFPAY ==
--- NOTE | ~2024-12-22 | FL_ITS ---
EXAMINATION: Barium swallow. CLINICAL INDICATION: Large lymph nodes. Occasional dysphagia. COMPARISON: CT chest 11/03/2024 FINDINGS: Following oral administration of thick and thin barium there is normal propagation bolus from the oral cavity through the pharynx, esophagus into stomach without obstruction, narrowing or stricture. The mucosal pattern of the esophagus is normal. On oral administration of saltine crackers coated with barium there is normal oral mastication and propagation of bolus from oral cavity, pharynx into the midesophagus. Food in the mid esophagus clears following oral administration of thin barium. There is mild retention of food in the right piriform sinus which clears with multiple swallows. There is trace laryngeal penetration but no aspiration. On placing patient supine and prone lying there is no gastroesophageal reflux or hiatal hernia. FL/FL barium swallow with air IMPRESSION: Mild retention of barium in the right piriform sinus which clears with several subsequent dry swallows. There is trace laryngeal penetration but no aspiration. Fluoroscopy: 2 minutes and 48 seconds. Dose area product: 724.3 Electronically signed by: Trey Ng MD 12/22/2024 09:33 AM EDT
--- OUTSIDE RECORDS SUMMARY | 2024-12-22 07:55 | XMS_ITS | Patient Health Record ---
Author Organization [facility] Address [address] [place] [address] Care Team Providers Care Train Operator Name Role Phone NEIL ECHAVARRIA Primary Care Provider [place] Jr Unavailable Reason For Referral No Information Medications Medication SIG (Take, Route, Frequency, Duration) Notes Start Date End Date Status Aspirin Adult Low Dose 81 MG 1 tablet Orally Once a day A ctive Ibuprofen 800 MG 1 tablet with food o r milk as needed Orally Three times a day Active ProAir HFA 108 (90 Base) MCG/ACT INHALE TWO PUFFS FOUR TIMES DAILY NEEDED Inhalation for 25 Active Pravastatin Sodium 20 MG Oral for 90 Active Nicotine 21 MG/24HR APPLY PATCH TO SKIN IN THE MORNING AND REMOVE AT NIGHT. DO NOT SMOKE WHILE USING PATCH Transdermal for 30 Active Colyte with Flavor Packs 240 GM As directed Orally Over the specified time. for 1 day(s) Active Gemfibrozil 600 MG Oral for 30 Active Social History Tobacco Use: Social History Observation Description Date Details (start date - stop date) Current Smoker NA - NA Tobacco Use/Smoking Question Answer Notes Patient is a current smoker How often do you smoke cigarettes? every day Are you interested in quitting? Ready to quit Alcohol Screen Question Answer Notes Did you have a drink containing alcohol in the p ast year? No Points 0 Interpretation Negative Section Notes: patient currently on nicotin e patches Problems Problem Type SNOMED Code ICD Code Onset Dates Problem Status W/U Status Risk Notes Problem 584900354 Change in bowel habits (R19.4) Active confirmed Problem 432732883 Irritable bowel syndrome with diarrhea (K58.0) Active confirmed Problem 388370534 Long-term use of aspirin therapy (Z79.82) Active confirmed Plan Of Treatment Future Test Test Name Order Date COLONOSCOPY 05/09/2017 Insurance Providers Payer Name Payer Address Payer Phone Subscriber Number Group Number Insured Name Patient Relationship to Insured Coverage Start Date Coverage End Date A[employer] MEDI COMPLETE (REFERRAL REQUIRED) [address] [address] [place] [address] [id number] ITZEL ANDREIAE Self - patient is the insured Medicare of [facility] [address] [place] [phone] [id number] ONEIL ROBBINS Self - patient is the insured MEDICAID OF [facility] [address] [place] [phone] [id number] ONEIL ROBBINS Self - patient is the insured Medical (General) History Medical History History ICD Code hypercholesterolemia trigger finger tobacco abuse past hx of diverticulitis Denies NM,DM,CVA,Lung disease,renal dise ase Surgical History Surgery Date(Month/Year) lumpectomy, right breast was on tamoxife n for 7 years tonsillectomy appendectomy partial hysterectomy
--- OUTSIDE RECORDS SUMMARY | 2024-12-22 07:55 | XMS_ITS | Encounter Summary ---
Author Organization [employer] Address [address] [facility] [address] [place] [address] Care Team Providers Care Master Baker Name Role Phone Sarah Mathews MD Primary Care Provider [phone] Reason for Visit * Reason Onset Date Comments Medication Question 07/29/2024 Encounter Details Date Type Department Care Team ([facility] st Contact Info) Description 07/29/2024 Telephone C [facility] [address] [place], [place] [phone] Sarah Mathews MD [address] [place] [address] Medication Question Social History Tobacco Use Types [...] give Pt 10 mg. Contact pt at [phone] * Telephone Encounter - Abel Rutledge - 07/30/2024 4:08 PM EST Tc from Pt daughter requesting that 10 mg furosemide (Lasix) could be sent to [facility] #[id number] AT [address] [facility]. Pt daughter is also waiting for call to schedule and endogram for pt. Daughter Contact: [phone] * Telephone Encounter - Sarah Mathews MD - 07/29/2024 6:33 PM EST Please send verbal order of 10mg.[facility] does not let me send 10mg * Telephone Encounter - Melissa Kirby - 07/29/2024 12:15 PM EST Tc from pt daughter Lamar calling to inform went to burr picker medication furosemide (Lasix) 20 MG tablet but was advised by a pharmacist to contact pcp office to switch script over to 10 mg instead of 20 mg so that its easier to spilt medication in half. Any further questions please contact phone # [phone] documented in this encounter Plan of Treatment Upcoming Encounters Date Type Department Care Team ([facility] st Contact Info) Description 12/30/2024 8:45 AM EDT Office Visit [facility] [address] [place] [address] Sarah Mathews MD [address] [place] [address] documented as of this encounter Visit Diagnoses Not on filedocumented in this encounter Additional Health Concerns Assessment Noted Time PHQ-9 Depression Total Score: 2 04/29/20 24 10:19 AM EST documented as of this encounter Care Teams Master Baker Relationship Specialty Start Date End Date Sarah Mathews MD [address] [place] [address] PCP - General Family Medicine 04/15/12 Juan BENITES 06/15/24 documented as of this encounter
== END 2024-12-22 07:54 | disposition home or self-care (01) ==
LOC: HO.XRAY 07:53
PROVIDERS: PCP Student in an Organized Health Care Education/Training Program; Visit Provider Internal Medicine Medical Oncology
DX: R59.0 Localized enlarged lymph nodes (principal)
CPT/HCPCS: 74221

== ENCOUNTER → 2024-12-22 07:56 | Outpatient (BNV) | payer MEDICARE, MEDICAID, SELFPAY | PROVIDERS: PCP Student in an Organized Health Care Education/Training Program; Visit Provider Radiology Diagnostic Radiology | DX: R13.10 Dysphagia, unspecified (principal); R59.0 Localized enlarged lymph nodes | CPT/HCPCS: 74221 ==

== ENCOUNTER 2025-02-25 09:53 | Outpatient (AMB) | payer MEDICARE, MEDICAID, SELFPAY ==
--- NOTE | 2025-02-25 09:57 | MHC.OFFVIS ---
Intake Visit Reasons: Recurrent UTIs Intake Note: patient presents today for: new pt recurrent UTI's urology medications: none blood thinners: none Inventory Control Assistant Required: No Accompanied by: Daughter Allergies nitrofurantoin Allergy (Verified 02/25/25 10:32) Nausea Medication List - Last Reconciled 02/25/25 by MONALISA Phoenix- albuterol sulfate 2.5 mg (3 mL) inhalation Q4H PRN albuterol sulfate 90 mcg/actuation (Ventolin HFA) 2 inhalations inhalation Q6H PRN alprazolam 0.25 mg PO BEDTIME PRN aspirin (Adult Low Dose Aspirin) 81 mg PO DAILY blood pressure test kit-large As directed cetirizine (All Day Allergy (cetirizine)) 10 mg PO DAILY PRN ciprofloxacin HCl 250 mg PO Q12H estradiol 0.01%(0.1mg/gram) (Estrace) 1 g vaginal 3XW 90 days fluticasone furoate-vilanterol 100-25 mcg/dose (Breo Ellipta) 1 inh inhalation DAILY gemfibrozil 600 mg PO BID levothyroxine (Synthroid) 100 mcg PO DAILY ondansetron 8 mg PO Q8H pravastatin 20 mg PO BEDTIME HPI Comments Details: Janine is a pleasant 84-year-old female patient of Dr. Mathews who was accompanied by her daughter Kiara at today's office visit. 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 In discussion with the patient today she reports noting over the last year she has been having issues with recurrent urinary tract infections. In review of patient's chart it appears urine cultures are as follows: 03/16 Streptococcus viridans group, 09/14 Klebsiella pneumoniae, / E coli, 12/16 ecoli, 6 E coli, 8/ E coli. In office urinalysis results reviewed with the patient today negative leukocytes negative nitrates. She reports typical UTI like symptoms are dysuria and fatigue. Daughter also reports patient is noted to be aggressive as one of her UTI like symptoms. We did discuss potential causes of recurrent urinary tract infections as well as further treatment options. She is not currently sexually active. She does have a history of IBS. We did discussed correlation of bowel issues and recurrent urinary tract infections. She denies urinary urgency, urinary frequency, incontinence, nocturia, hematuria, dysuria, foul smelling urine, changes to urinary stream, flank pain, fever, and or chills. She is happy with her current voiding parameters. We discussed obtaining retroperitoneal ultrasound for further assessment evaluation. All questions were answered. She otherwise offers no other issues or concerns at this time. Urinary Symptoms Review - Behavioral changes noted during infections include increased sleep and irritability Discussion Notes We discussed that recurrent urinary tract infections can be due to various reasons, including bowel issues. An ultrasound of the kidneys and bladder was recommended to ensure anatomical normalcy. First-line therapy options include topical or vaginal estradiol, with a preference for cream application. Additional preventive measures include increased water intake, proper hygiene practices, and possibly using methenamine, vitamin C, or D-mannose. Low-dose antibiotic therapy was also mentioned as a potential treatment option. The patient was advised to contact the clinic if any UTI symptoms arise. Plan 1. Recurrent Urinary Tract Infections The patient will undergo an ultrasound to check for anatomical issues and start topical estradiol cream therapy. Preventive measures include hydration, hygiene, and possibly methenamine or D-mannose. [facility]LY [facility] Medical History COPD (chronic obstructive pulmonary disease) Anemia Hypoxemia Smoker Diverticulosis Hypercholesteremia IBS (irritable bowel syndrome) HTN (hypertension) Surgical History Small cell carcinoma Hx of tonsillectomy Hx of appendectomy History of lumpectomy Lymphadenopathy, mediastinal Lung mass H/O colonoscopy Family History Sister Breast cancer Social History Household Members: None Housing: Apartment Do you presently have visiting nurse or other home services: No Alcohol intake: never Patient Tobacco Use Status: Current everyday Tobacco user Tobacco use type: Cigarette Cigarette Packs Per Day: 0.25 Years Smoked: 60 e-Cigarette/Vaping Use: Currently Using Second Hand Smoke Exposure: No Advance Directives Date on File: 08/04/24 service: No Current occupational status: retired Review of Systems Const All systems reviewed & are unremarkable except as noted in HPI and below Physical Exam Const General: cooperative, comfortable, no acute distress, well developed, alert and awake Orientation/consciousness: patient oriented x3 Limitations: no limitations HEENT Head: Yes normal to inspection, Yes normocephalic and Yes atraumatic Ears: hearing grossly normal bilaterally Eyes General: appearance normal, both eyes and all related structures Neck Neck: Yes normal visual inspection and Yes trachea midline Chest Chest palpation & inspection: normal inspection of the chest Resp Effort & Inspection: normal respiratory effort and able to speak in complete sentences Cardio Rate: regular rate GI Inspection: Yes normal to inspection General: Yes no CVA tenderness Back/Spine/Pelvis Back: no CVA tenderness Skin General skin exam: no rashes or lesions noted Neuro General: patient oriented x3 Extrem General: Yes normal to inspection Psych Appearance: grossly normal and well kempt Mental Status: mental status grossly normal Speech and movement: Normal speech and movement present and Clear speech present Affect: normal affect Attitude: cooperative Thought process: Normal thought process present Thought content: Normal thought content present Insight: Fair insight present (Psych) Judgement: Fair judgement present (Psych) Results AMB Urinalysis, Automated UA Leukoctes 0 Jung/uL Last Edit by GAYLA Rock on 02/25/25 10:13 UA Nitrite Negative Last Edit by GAYLA Rock on 02/25/25 10:13 UA Urobilinogen 0.2 mg/dL Last Edit by GAYLA Rock on 02/25/25 10:13 UA Protein 0 mg/dL Last Edit by GAYLA Rock on 02/25/25 10:13 UA pH 6.0 Last Edit by GAYLA Rock on 02/25/25 10:13 UA Blood 0 Chadd/uL Last Edit by GAYLA Rock on 02/25/25 10:13 UA Specific [place] 1.015 Last Edit by GAYLA Rock on 02/25/25 10:13 UA Ketone Negative Last Edit by GAYLA Rock on 02/25/25 10:13 UA Bilirubin 0 mg/dL Last Edit by GAYLA Rock on 02/25/25 10:13 UA Glucose 0 mg/dL Last Edit by GAYLA Rock on 02/25/25 10:13 Results Reviewed Results Reviewed: Laboratory Last Values Urine pH (Auto) 6.0 02/25/25 10:12 Specific [place] (Auto) 1.015 02/25/25 10:12 Urine Protein (Auto) 0 mg/dL 02/25/25 10:12 Glucose (UA)(Auto) 0 mg/dL 02/25/25 10:12 Urine Ketones (Auto) Negative 02/25/25 10:12 Urine Blood (Auto) 0 Chadd/uL 02/25/25 10:12 Urine Nitrite (Auto) Negative 02/25/25 10:12 Urine Bilirubin (Auto) 0 mg/dL 02/25/25 10:12 Urine Urobilinogen (Auto) 0.2 mg/dL 02/25/25 10:12 Leukocyte Esterase (Auto) 0 Jung/uL 02/25/25 10:12 Assessment & Plan Assessment & Plan (1) Recurrent UTI: Code(s): N39.0 - Urinary tract infection, site not specified Category: Medical Plan In office urinalysis results with the patient today; as noted above. PVR 0 mL. Will obtain retroperitoneal ultrasound for further assessment evaluation. We did discuss potential causes of recurrent urinary tract infections as well as further treatment options and risks and benefits of these treatment options. Start Estrace cream as discussed and prescribed. All questions were answered. Discussed UTI prevention with D mannose supplement, vitamin-C, increasing fluid intake, behavioral therapy with timed voiding, perineal hygiene and postcoital voiding, and management of constipation with stool softeners and increased fiber intake. Follow-up in 1-3 months with imaging and PVR; or sooner with any issues, concerns, and or questions. Orders: Orders AMB Urinalysis Automated Today Z13.9 - Encounter for screening, unspecified US retroperitoneal comp Today N39.0 - Urinary tract infection, site not specified Medications: New estradiol 0.01%(0.1mg/gram) (Estrace) 1 g vaginal 3XW 42.5 grams 3RF 90 days Patient Instructions: The patient had an opportunity to ask questions regarding the treatment plan. All questions were answered. Physical exam, labs, and imaging were discussed and reviewed in detail. As well as risks, benefits, and discussion of treatment choices. No major barriers to understanding were identified. The patient expressed understanding and agreement with the above treatment plan. The patient was made aware they should contact our office by phone for worsening of their current condition, the appearance of new symptoms, or with any questions or concerns. Compliance is encouraged with any medications and follow up testing that is ordered. It is a privilege to be allowed the opportunity to participate in? your urological care.? Again, if you have any questions or concerns If you have any questions or concerns please do not hesitate to contact me. The office is [phone]. This note is constructed using voice recognition software. While every effort has been made to ensure accuracy solid waste engineer errors may have been included. Yours sincerely, ANNIE Phoenix Coding Level of Care Code New Pt Level 4 (40615) Diagnoses Recurrent UTI N39.0
--- OUTSIDE RECORDS SUMMARY | 2025-02-25 10:54 | XMS_ITS | Encounter Summary ---
Author Organization [employer] Address [address] [facility] [address] [place] [address] Care Team Providers Care Car Construction Superintendent Name Role Phone Sarah Mathews MD Primary Care Provider [phone] Reason for Visit * Reason Comments Med Refill Encounter Details Date Type Department Care Team ([facility] st Contact Info) Description 02/09/2024 Refill [facility] MEDICINE [address] [place] [address] Sarah Mathews MD [address] [place], [place] [phone] Primary hypertension Social History Tobacco Use Types [...] Care Team (Late st Contact Info) Description 03/08/2025 11:00 AM EDT Office Visit [facility] MED & PEDS [address] [place] [address] Sarah Mathews MD [address] [place] [address] documented as of this encounter Visit Diagnoses Diagnosis Primary hypertension Unspecified essential hypertension documented in this encounter Care Teams Car Construction Superintendent Relationship Specialty Start Date End Date Sarah Mathews MD [address] [place] [id number] PCP - General Family Medicine 04/15/12 Juan Daniella 06/15/24 documented as of this encounter
--- OUTSIDE RECORDS SUMMARY | 2025-02-25 10:54 | XMS_ITS | Encounter Summary ---
Author Organization [employer] Address [address] [facility] 7[address] [place] [address] Care Team Providers Care Oracle Financial Application Developer Name Role Phone Sarah Mathews MD Primary Care Provider [phone] Reason for Visit * Reason Onset Date Comments Hospital Follow-up 08/05/2024 Encounter Details Date Type Department Care Team ([facility] st Contact Info) Description 08/05/2024 Telephone [facility] MEDICINE [address] [place] [address] Sarah Mathews MD [address] [place], [place] [phone] Hospital Follow-up Social History Tobacco Use Types [...] from pt requesting a HDF appt. Hospital: [facility] Date of admission: 08/03/2024 Discharge date: 08/05/2024 Diagnosed: Respiratory Problems and UTI *Send message to [place] Clinical Care Coordinators documented in this encounter Plan of Treatment Upcoming Encounters Date Type Department Care Team (Late st Contact Info) Description 03/08/2025 11:00 AM EDT Office Visit [facility] MED & PEDS [address] [place] [address] Sarah Mathews MD [address] [place] [address] documented as of this encounter Visit Diagnoses Not on filedocumented in this encounter Additional Health Concerns Assessment Noted Time PHQ-9 Depression Total Score: 2 04/29/20 24 10:19 AM EST documented as of this encounter Care Teams Oracle Financial Application Developer Relationship Specialty Start Date End Date Sarah Mathews MD [address] [place] [address] PCP - General Family Medicine [facility] documented as of this encounter
--- OUTSIDE RECORDS SUMMARY | 2025-02-25 10:54 | XMS_ITS | Clinical Summary ---
Author Organization [employer] Address [address] [facility] [address] [place] [address] Care Team Providers Care Painter Aircraft Name Role Phone Sarah Mathews MD Primary Care Provider [phone] Allergies No known active allergies Medications ALPRAZolam (Xanax) 0.25 MG tablet Take 0.25 mg by mouth if needed in the morning and at bedtime for anxiety. 3 Active Multiple Vitamins-Minerals (CENTRUM SILVER 50+WOMEN PO) Purchases OTC- Take 1 tablet by mouth once daily Active albuterol (ProAir HFA) 108 (90 Base) [...] albuterol inhaler 1 Device 1 5 Active gemfibrozil (Lopid) 600 MG tabletIndications :Primary hypertension Take 1 tablet (600 mg) by mouth 2 times daily. 180 tablet 3 5 09/29/19 26 Active pravastatin (Pravachol) 20 MG tablet TAKE 1 TABLET BY MOUTH EVERY NIGHT AT BEDTIME 90 tablet 1 5 Active Fluticasone Furoate-Vilantero l (Breo Ellipta) 100-25 MCG/ACT aerosol powder Inhale 100 mcg Once per day. 60 each 3 5 Active cetirizine (ZyrTEC) 10 MG tablet Take 1 tablet (10 mg) by mouth Once per day. 30 tablet 11 5 12/31/19 26 Active bacitracin-polymy anastacia b (Polysporin) ointment Apply topically 2 times daily. 15 g Active silver sulfADIAZINE (Silvadene) 1 % cream Apply topically 2 times daily. 50 g 5 06/28/19 26 Active levothyroxine (Synthroid, Levoxyl) 125 MCG tablet Take 1 tablet (125 mcg) by mouth before breakfast. 30 tablet 11 5 12/31/19 26 Active Active Problems Problem Noted Date [...] Encounters Date Type Department Care Team Description 01/22/2025 Telephone [facility] MED & PEDS [address] [facility] [place] [address] Sarah Mathews MD TC- canceled apt 01/04/2025 Telephone [facility] MED & PEDS [address] [facility] [address] Sarah Mathews MD 12/30/2024 8:45 AM EDT Office Visit [facility] MED & PEDS [address] [facility] [place] [address] Sarah Mathews MD Wound cellulitis (Primary Dx); Chronic obstructive pulmonary disease, unspecified COPD type (CMS/HCC); Primary malignant neoplasm of bronchus of right upper lobe ([facility]/HCC) 12/30/2024 Travel 12/22/2024 Orders Only [facility] External Provider, [facility] 12/18/2024 Refill [facility] MED & PEDS [address] [facility] [place] [address] Sarah Mathews MD from Last 3 Months Immunizations Immunization Administration Dates Next Due Influenza Quadrivalent Adjuvanted [...] Sign Reading Time Taken Comments Blood Pressure 124/70 12/30/2024 8:49 AM EDT Pulse 66 12/30/2024 8:49 AM EDT Temperature 37.1 C (98.7 F) 12/30/2024 8:49 AM EDT Respiratory Rate 18 12/30/2024 8:49 AM EDT Oxygen Saturation 97% 12/30/2024 8:4 9 AM EDT with O2 at 2 ml Inhaled Oxygen Concentration - - Weight 58.5 kg (129 lb) 12/30/2024 8:49 AM EDT Height 165.1 cm (5' 5 ) 12/30/2024 8:49 AM EDT Body Mass Index 21.47 12/30/2024 8:49 AM EDT Plan of Treatment Upcoming Encounters Date Type Department Care Team (Late st Contact Info) Description 03/08/2025 11:00 AM EDT Office Visit [facility] MED & PEDS [address] [place] [address] Sarah Mathews MD [address] [place] [address] Health Maintenance Due Date Last Done Comments Zoster Vaccines (2 of 3) 08/21/2015 06/26/2015 RSV Patients and Patients Aged 60 years or older (1 - 1-dose 75+ series) 2016 COVID-19 Vaccine ( season) 2025 06/06/2022, 03/23/2021, 08/27/2020, Additional history exists Influenza Vaccine (#1) 2025 , 06/06/2022, 04/23/2021, Additional history exists Depression Screening 04/29/2025 04/29/2024, 04/29/20 24 SDOH Screening 07/22/2025 07/22/2024 Alcohol/Substance Use Screening 07/29/2025 07/29/2024 Tobacco Screening 12/30/2025 12/30/2024 Lipid Panel 05/09/2029 05/09/2024, 04/0 01/2024, 12/21/2022, Additional history exists DTaP/Tdap/Td Vaccines (2 - Td or Tdap) 12/21/2032 12/21/2022, 02/21/2007 Pneumococcal Vaccine: 50+ Years Completed 09/02/2023, 02/04/2016 HIB Vaccines Aged Out No longer eligi [...] patient's age to complete this topic Meningococcal B Vaccine Aged Out No l onger eligible based on patient's age to complete [...] Procedure Name Priority Date/Time Associated Diagnosis Comments FL ESOPHAGUS BARIUM SWALLOW WITH AIR Routine 12/22/2024 8:20 AM EDT LIPID PANEL, STANDARD Routine 05/09/2024 8:09 AM EST Primary hypertension Hypothyroidism, unspecified type from Last 3 Months or Most Recently Relevant to Health Maintenance Results * FL Esophagus Barium Swallow w/Air (12/22/2024 8:20 AM EDT) Anatomical Region Laterality Modality Head, Neck Radiographic Preeti ging 12/22/2024 8:20 AM EDT Narrative 12/22/2024 9:36 AM EDT [place] [address] Fluoroscopy Report Signed Patient: Janine Felder MR#: [id number] [birth year] : 1940 Acct:[id number] Age/Sex: 84 / F ADM Date: 12/22/24 Loc: HO.XRAY Attending Dr: Yosef Wolff MD Ordering Physician: Yosef Wolff MD Date of Service: 12/22/24 Procedure(s): FL barium swallow with air Accession Number(s): [id number] cc: Yosef Wolff MD; Sarah Mathews MD EXAMINATION: Barium swallow. CLINICAL INDICATION: Large lymph nodes. Occasional dysphagia. COMPARISON: CT chest 11/03/2024 FINDINGS: Following oral administration of thick and thin barium there is normal propagation bolus from the oral cavity through the pharynx, esophagus into stomach without obstruction, narrowing or stricture. The mucosal pattern of the esophagus is normal. On oral administration of saltine crackers coated with barium there is normal oral mastication and propagation of bolus from oral cavity, pharynx into the midesophagus. Food in the mid esophagus clears following oral administration of thin barium. There is mild retention of food in the right piriform sinus which clears with multiple swallows. There is trace laryngeal penetration but no aspiration. On placing patient supine and prone lying there is no gastroesophageal reflux or hiatal hernia. FL/FL barium swallow with air IMPRESSION: Mild retention of barium in the right piriform sinus which clears with several subsequent dry swallows. There is trace laryngeal penetration but no aspiration. Fluoroscopy: 2 minutes and 48 seconds. Dose area product: 724.3 Electronically signed by: Trey gN MD 12/22/2024 09:33 AM EDT RP Dictated By: Trey Ng MD Signed By: <Electronically signed by Trey Ng MD in OV> 12/22/24932 DD/ 9 TD/TT: 12/22/2437 Veterinary Laboratory Technician: [facility] Procedure Note Donotuseinterpreter, Image - 12/22/2024 [place] [address] Fluoroscopy Report Signed Patient: Vanesa Felder#: [id number] [birth year] : 1940cct:[id number] Age/Sex: 84 / FADM Date: 12/22/24 Loc: HO.MAUREENAY Attending Dr: Yosef Wolff MD Ordering Physician: Yosef Wolff MD Date of Service: 12/22/24 Procedure(s): FL barium swallow with air Accession Number(s): [id number] cc: Yosef Wolff MD; Sarah Mathews MD EXAMINATION: Barium swallow. CLINICAL INDICATION: Large lymph nodes. Occasional dysphagia. COMPARISON: CT chest 11/03/2024 FINDINGS: Following oral administration of thick and thin barium there is normal propagation bolus from the oral cavity through the pharynx, esophagus into stomach without obstruction, narrowing or stricture. The mucosal pattern of the esophagus is normal. On oral administration of saltine crackers coated with barium there is normal oral mastication and propagation of bolus from oral cavity, pharynx into the midesophagus. Food in the mid esophagus clears following oral administration of thin barium. There is mild retention of food in the right piriform sinus which clears with multiple swallows. There is trace laryngeal penetration but no aspiration. On placing patient supine and prone lying there is no gastroesophageal reflux or hiatal hernia. FL/FL barium swallow with air IMPRESSION: Mild retention of barium in the right piriform sinus which clears with several subsequent dry swallows. There is trace laryngeal penetration but no aspiration. Fluoroscopy: 2 minutes and 48 seconds. Dose area product: 724.3 Electronically signed by: Trey Ng MD 12/22/2024 09:33 AM EDT RP Dictated By: Trey Ng MD Signed By: <Electronically signed by Trey Ng MD in [place]> 12/22/2433 DD/ 9 TD/TT: 12/22/24 08 Veterinary Laboratory Technician: [facility] External Provider IMG FLU OROSCOPY PROCEDURES Final Result * Lipid Panel, Standard (05/09/2024 8:09 AM EST) Triglycerides 48 <150 mg/dL [facility] Comment:Desirable Triglyceri de: less than 150 mg/dLBorderline High Triglyceride 150-199 mg/dLHigh Triglyceride: 200-499 mg/dLVery High Triglyceride: greater than or equal to 5OO mg/dL Cholesterol 158 <200 mg/dL [facility] Comment:Desirable Cholestero l: less than 200 mg/dLBorderline High Cholesterol: 200-239 mg/dLHigh Cholesterol: greater than 239 mg/dL LDL Cholesterol Calculated 82 <100 mg/dL [facility] Comment:Desirable LDL: less than 100 mg/dLNear Optimal/Above Optimal LDL: 110- 129 mg/dLBorderline High LDL: 130-159 mg/dLHigh LDL: 160-189 mg/dLVery High LDL: greater than or equal to 190 mg/dL HDL Cholesterol 67 >40 mg/dL [facility] Comment:Desirable HDL: great er than 40 mg/dL Note: This HDL assay may give artificially low results in patients with liver disease. Blood Venous blood specimen / Unknown 05/09/2024 8:09 AM EST 05/09/2024 8:09 AM EST us Sarah Mathews MD LAB BLOOD ORDERABLES Final Resul t [facility] [address] [place] [address] [phone] from Last 3 Months or Most Recently Relevant to Health Maintenance Insurance [place], [place] HSN [facility] MEDICARE ADVANTAGE HMO Care Teams Painter Aircraft Relationship Specialty Start Date End Date Sarah Mathews MD [address] [place] [address] [place] [address] PCP - General Family Medicine 04/15/12 Juan BENITES 06/15/24
--- OUTSIDE RECORDS SUMMARY | 2025-02-25 10:54 | XMS_ITS | Clinical Summary ---
Author Organization [facility] Address [address] [place] [address] Phone Care Team Providers Care Paper Cone Grader Name Role Phone Sarah Mathews MD Primary Care Provider [phone] Yosef Wolff MD Unavailable [phone] Allergies No known active allergies Medications albuterol 90 mcg/actuation inhaler Inhale 2 puffs into the lungs every 4 (four) hours as needed. 12/21/2022 Active gemfibroziL (LOPID) 600 MG tablet 02/07/2023 Active hydroCHLOROthia zide (HYDRODIURIL) 25 MG tablet 01/28/2023 Active pravastatin (PRAVACHOL) 20 MG tablet Take 20 mg by mouth nightly at bedtime. 02/11/2023 Active guaiFENesin (ROBITUSSIN) 100 mg/5 mL syrup Take 200 mg by mouth 3 (three) times a day as needed for cough. 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 2022 Renal cyst, left 04/23/2023 Diverticulosis of colon 04/23/2023 Irritable bowel syndrome 04/23/2023 History of breast cancer 04/23/2023 History of radiation therapy 04/23/2023 Family History Medical History Relation Comments Cancer Sister 1 breast cancer Cancer Sister 2 lung cancer ([place]) Relation Status Comments Sister 1 Sister 2 Alive Social History Tobacco Use Types Packs/Day Years Used Date Smoking Tobacco: Every Day Cigarettes 0.3 55 Comments:Started at 27 years old Alcohol Use Standard Drinks/Week Comments Not Currently 0 (1 standard drink = 0.6 oz pur e alcohol) Education Answer Date Recorded Are you interested in more education? Not on garth e 04/10/2023 Are you concerned about learning? Not on file 04/10/2023 No 04/10/2023 No 04/10/2023 Digital Access Answer Date Recorded No 04/10/2023 No 04/10/2023 Reliable internet access at home? Not on file 04/10/2023 Device with a working camera? Not on file Comments Unknown Sex and Gender Information Value Date Recorded Sex Assigned at Not on file Legal Sex Female 2:00 PM EDT Gender Identity Not on file Sexual Orientation Not on file Last Filed Vital Signs Vital Sign Reading Time Taken Comments Blood Pressure 144/76 07/22/2023 10:05 AM EST Pulse 75 07/22/2023 10:05 AM EST Temperature 36.2 C (97.2 F) 07/01/2023 11:48 AM EST Respiratory Rate 18 07/15/2023 11:32 AM EST Oxygen Saturation 95% 07/22/2023 10:05 AM EST Inhaled Oxygen Concentration - - Weight 60.8 kg (134 lb 1.6 oz) 07/22/2023 10:05 AM EST Height 165.1 cm (5' 5 ) 04/23/2023 1:16 PM EDT Body Mass Index 22.32 04/23/2023 1:16 PM EDT Plan of Treatment Health Maintenance Due Date Last Done Comments POTASSIUM LEVEL 1941 DEPRESSION SCREENING 1953 ZOSTER VACCINES (1 of 2) 1960 OSTEOPOROSIS SCREENING INITI AL (ONE-TIME) 2006 RSV VACCINE (1 - 1-dose 75+ series) 2016 PNEUMOCOCCAL VACCINES (50+ years) (2 of 2 - PCV) 02/03/2017 02/04/2016 BLOOD PRESSURE 10/22/2023 04/23/2023 COVID-19 VACCINE (1 - 2023-2 5 season) 2024 LIPID PANEL 09/29/2024 09/30/2023, 12/21/2022 Adult Td,Tdap Booster 12/21/2032 12/21/2022 HEPATITIS A VACCINES Aged Out No long er eligible based on patient's age to complete this topic HIB VACCINES Aged Out No longer eligi ble based on patient's age to complete this topic MENINGOCOCCAL VACCINES (ACWY) Aged Out No longer eligible based on patient's age to complete this topic MENINGOCOCCAL VACCINES (B) Aged Out N o longer eligible based on patient's age to complete this topic Medical Devices Not on file Insurance [employer] MEDICARE REPLACEMENT FULL MEDICARE PART A & B Member Subscriber Plan / Payer (Ef fective 2006-Present) Name:Emerita, Janine Member ID:[id number] Relation to Subscriber:Self Name:EmeritaJanine Subscriber ID:[id number] Payer ID:[id number] Group ID:Not on file Type:Medicare Address: [employer] [address] [place] [address] [facility] [employer] MEDICARE REPLACEMENT [facility] FULL MEDICARE PART A & B Member Subscriber Plan / Payer (Ef fective 2006-Present) Name:Janine Felder Member ID:[id number] Relation to Subscriber:Self Name:Janine Felder Subscriber ID:[id number] Payer ID:[id number] Group ID:Not on file Type:Medicare Address: [employer] [address] [place] [phone] [facility] [employer] MEDICARE REPLACEMENT [place] [id number] FULL MEDICARE PART A & B [facility] [employer] [facility] AARP MEDICARE REPLACEMENT [facility] FULL MEDICARE PART A & B [facility] [employer] MEDICARE REPLACEMENT [facility] FULL MEDICARE PART A & [facility] [address] [place] [address] MEDICARE REPLACEMENT [facility] FULL MEDICARE PART A & B [facility] Care Teams Paper Cone Grader Relationship Specialty Start Date End Date Sarah Mathews MD [address] [place] [address] PCP - General Family Medicine 04/09/23 Yosef Wolff MD [address] [place] [address] Primary Oncologist 07/08/23 Additional Source Comments The information contained in this document represents components of the legal health record. It is not the complete legal health record.[facility]
--- OUTSIDE RECORDS SUMMARY | 2025-02-25 10:54 | XMS_ITS | Encounter Summary ---
Author Organization [employer] Address [address] [facility] 7t [place] [address] Care Team Providers Care Forestry Conservation Worker Name Role Phone Sarah Mathews MD Primary Care Provider [phone] Reason for Visit * Reason Onset Date Comments Medication Question 07/29/2024 Encounter Details Date Type Department Care Team ([facility] st Contact Info) Description 07/29/2024 Telephone C [facility] [address] [place], [place] [phone] Sarah Mathews MD 505 [place] [address] Medication Question Social History Tobacco Use Types [...] give Pt 10 mg. Contact pt at [phone] * Telephone Encounter - Abel Rutledge - 07/30/2024 4:08 PM EST Tc from Pt daughter requesting that 10 mg furosemide (Lasix) could be sent to [facility] #[id number] AT SEC OF [facility]. Pt daughter is also waiting for call to schedule and endogram for pt. Daughter Contact: [phone] * Telephone Encounter - Sarah Mathews MD - 07/29/2024 6:33 PM EST Please send verbal order of 10mg.[facility] does not let me send 10mg * Telephone Encounter - Melissa Kirby - 07/29/2024 12:15 PM EST Tc from pt daughter Lamar calling to inform went to continuous pickling line pickler medication furosemide (Lasix) 20 MG tablet but was advised by a pharmacist to contact pcp office to switch script over to 10 mg instead of 20 mg so that its easier to spilt medication in half. Any further questions please contact phone # [phone] documented in this encounter Plan of Treatment Upcoming Encounters Date Type Department Care Team ([facility] st Contact Info) Description 03/08/2025 11:00 AM EDT Office Visit [facility] MED & PEDS [address] [place] [address] Sarah Mathews MD 505 [place] [address] documented as of this encounter Visit Diagnoses Not on filedocumented in this encounter Additional Health Concerns Assessment Noted Time PHQ-9 Depression Total Score: 2 04/29/20 24 10:19 AM EST documented as of this encounter Care Teams Forestry Conservation Worker Relationship Specialty Start Date End Date Sarah Mathews MD [address] [place] [address] PCP - General Family Medicine 04/15/12 Juan BENITES 06/15/24 documented as of this encounter
--- OUTSIDE RECORDS SUMMARY | 2025-02-25 10:55 | XMS_ITS | Encounter Summary ---
Author Organization [employer] Address [address] [facility] 7t [place] [address] Care Team Providers Care Depot Agent Name Role Phone Sarah Mathesw MD Primary Care Provider [phone] Reason for Visit * Reason Onset Date Comments FYI 09/16/2023 Encounter Details Date Type Department Care Team ([facility] st Contact Info) Description 09/16/2023 Telephone C [facility]S [address] [place], [place] [phone] Sarah Mathews MD [address] [place], [place] [phone] FYI Social History Tobacco Use Types Packs/Day [...] MG tablet. Any questions, contact [place] at [phone] documented in this encounter Plan of Treatment Upcoming Encounters Date Type Department Care Team (Late st Contact Info) Description 03/08/2025 11:00 AM EDT Office Visit [facility] MED & PEDS [address] [place] [address] Sarah Mathews MD [address] [place] [address] documented as of this encounter Visit Diagnoses Not on filedocumented in this encounter Care Teams Depot Agent Relationship Specialty Start Date End Date Sarah Mathews MD [address] [place] [address] PCP - General Family Medicine 04/15/12 Juan BENITES 06/15/24 documented as of this encounter
--- OUTSIDE RECORDS SUMMARY | 2025-02-25 10:55 | XMS_ITS | Encounter Summary ---
Author Organization [employer] Address [address] [facility] 7t [place] [address] Care Team Providers Care Information Clerk Brokerage Name Role Phone Sarah Mathews MD Primary Care Provider [phone] Reason for Visit * Reason Onset Date Comments FYI 06/16/2024 Encounter Details Date Type Department Care Team ([facility] st Contact Info) Description 06/16/2024 Telephone [facility] MEDICINE [address] [place] [address] Sarah Mathews MD [address] [place], [place] [phone] FYI Social History Tobacco Use Types Packs/Day [...] 11:21 AM EST Tc from Juan BENITES ([facility]) Stating that they admitted pt into Physical Therapy and will be seeing pt once a week. documented in this encounter Plan of Treatment Upcoming Encounters Date Type Department Care Team (Late st Contact Info) Description 03/08/2025 11:00 AM EDT Office Visit [facility] MED & PEDS 505 [place] [address] Sarah Mathews MD [address] [place] [address] documented as of this encounter Visit Diagnoses Not on filedocumented in this encounter Additional Health Concerns Assessment Noted Time PHQ-9 Depression Total Score: 2 04/29/20 24 10:19 AM EST documented as of this encounter Care Teams Information Clerk Brokerage Relationship Specialty Start Date End Date Sarah Mathews MD [address] [place] [address] PCP - General Family Medicine 04/15/12 Juan BENITES 06/15/24 documented as of this encounter
--- OUTSIDE RECORDS SUMMARY | 2025-02-25 10:55 | XMS_ITS | Encounter Summary ---
Author Organization [employer] Address [address] [place] [address] 7 [place] [address] Care Team Providers Care High School Math Tutor Name Role Phone Sarah Mathews MD Primary Care Provider [phone] Reason for Referral * Consultation (Routine) - Closed Specialty Diagnoses / Procedures Referred By Contac t Referred To Contact Pharmacy Diagnoses Urinary tract infection without hematuria, site unspecified Tash Walker, PharmD [address] [place] [address] Phone: tel: fax: Referral ID Status Reason Start Date Expiration Date V isits Requested Visits Authorized [id number] Closed Continuity of Care 09/12/2023 09/11/2024 1 1 Encounter Details Date Type Department Care Team (Late st Contact Info) Description 09/12/2023 Orders Only [facility] MEDICINE [address] [place], [place] [phone] Tash Walker, PharmD [address] [place], [place] [phone] Urinary tract infection without hematuria, site unspecified [...] Description 03/08/2025 11:00 AM EDT Office Visit [facility] MED & PEDS [address] [place] [address] Sarah Mathews MD [address] [place] [address] Scheduled Referrals Name Type Priority Associated Diagnoses Orde r Schedule Referral to Pharmacy MTM Outpatient Referral Routine Urinary tract infection without hematuria, site unspecified Ordered: 09/12/2023 documented as of this encounter Visit Diagnoses Diagnosis Urinary tract infection without hematuria, site unspecified- Primary documented in this encounter Care Teams High School Math Tutor Relationship Specialty Start Date End Date Sarah Mathews MD [address] [place] [address] PCP - General Family Medicine 04/15/12 Juan BENITES 06/15/24 documented as of this encounter
--- OUTSIDE RECORDS SUMMARY | 2025-02-25 10:55 | XMS_ITS | Encounter Summary ---
Author Organization [employer] Address [address] [facility] 7t [place] [address] Care Team Providers Care Appointment Manager Name Role Phone Sarah Mathews MD Primary Care Provider [phone] Reason for Visit * Reason Onset Date Comments Results 10/09/2023 Encounter Details Date Type Department Care Team ([facility] st Contact Info) Description 10/09/2023 Telephone [facility] MED & PEDS [address] [place], [place] [phone] Sarah Mathews MD [address] [place], [place] [phone] Results Social History Tobacco Use Types Packs/Day [...] for ordered:liver panel, BMP, lipid panel from [facility] and printed to [facility] for medical records and for providerto review. [...] as needed. RN will forward message to [facility] to obtain lab results for provider. TC from pt daughter requesting call back regarding Results. Type of results: labs Date when done: 09/30/23 Facility: [facility] * Telephone Encounter - Melissa Kirby - 10/09/2023 12:35 PM EDT TC from pt daughter requesting call back regarding Results. Type of results: labs Date when done: 09/30/23 Facility: [facility] documented in this encounter Plan of Treatment Upcoming Encounters Date Type Department Care Team (Late st Contact Info) Description 03/08/2025 11:00 AM EDT Office Visit [facility] MED & PEDS [address] [place] [address] Sarah Mathews MD [address] [place] [address] documented as of this encounter Visit Diagnoses Not on filedocumented in this encounter Care Teams Appointment Manager Relationship Specialty Start Date End Date Sarah Mathews MD [address] [place] [address] PCP - General Family Medicine 04/15/12 Juan BENITES 06/15/24 documented as of this encounter
--- OUTSIDE RECORDS SUMMARY | 2025-02-25 10:55 | XMS_ITS | Encounter Summary ---
Author Organization [employer] Address [address] [facility] 7t [place] [address] Care Team Providers Care Powdered Sugar Supervisor Name Role Phone Sarah Mathews MD Primary Care Provider [phone] Reason for Visit * Reason Onset Date Comments Hospital Follow-up 09/11/2023 Encounter Details Date Type Department Care Team ([facility] Contact Info) Description 09/11/2023 Telephone C [facility] MED [facility] PEDS [address] [place], [place] [phone] Sarah Mathews MD [address] [place], [place] [phone] Hospital Follow-up Social History Tobacco Use Types [...] from pt requesting a HDF appt. Hospital: [facility] Date of admission: 09/06 Discharge date: 09/08 Diagnosed: UTI, Fall, Acute kidney injury, Hypokalemia Please contact daughter at [phone] documented in this encounter Plan of Treatment Upcoming Encounters Date Type Department Care Team (Late st Contact Info) Description 03/08/2025 11:00 AM EDT Office Visit [facility] MED & PEDS [address] [place] [address] Sarah Mathews MD [address] [place] [address] documented as of this encounter Visit Diagnoses Not on filedocumented in this encounter Care Teams Powdered Sugar Supervisor Relationship Specialty Start Date End Date Sarah Mathews MD [address] [place] [address] PCP - General Family Medicine 04/15/12 Juan A 06/15/24 documented as of this encounter
--- OUTSIDE RECORDS SUMMARY | 2025-02-25 10:55 | XMS_ITS | Encounter Summary ---
Author Organization [employer] Address [address] [facility] 7t [place] [address] Care Team Providers Care Calibration Laboratory Technician Name Role Phone Sarah Mathews MD Primary Care Provider [phone] Reason for Visit * Reason Onset Date Comments Nurse Triage 07/01/2024 Encounter Details Date Type Department Care Team ([facility] st Contact Info) Description 07/01/2024 Telephone [facility] MEDICINE [address] [place] [address] Sarah Mathews MD [address] [place], [place] [phone] Nurse Triage Social History Tobacco Use Types [...] for Pt. Pt was admitted to [facility] 06/11/24for dx of copd exacerbation and covid. Pt was discharged 06/13/24. Pt has been having low blood pressure even while in the hospital. Note, Pt has been undergoing chemotherapy prior to ED visit. Pt was seen by anesthesiology resident yesterday and had a BP of 84/48. [...] Description 03/08/2025 11:00 AM EDT Office Visit [facility]C MED & PEDS [address] [place] [address] Sarah Mathews MD [address] [place] [address] documented as of this encounter Visit Diagnoses Not on filedocumented in this encounter Additional Health Concerns Assessment Noted Time PHQ-9 Depression Total Score: 2 04/29/20 24 10:19 AM EST documented as of this encounter Care Teams Calibration Laboratory Technician Relationship Specialty Start Date End Date Sarah Mathews MD [address] [place] [address] PCP - General Family Medicine 04/15/12 Juan BENITES 06/15/24 documented as of this encounter
--- OUTSIDE RECORDS SUMMARY | 2025-02-25 10:55 | XMS_ITS | Encounter Summary ---
Author Organization [employer] Address [address] [facility] 7t [place] [address] Care Team Providers Care Institutional Research Director Name Role Phone Sarah Mathews MD Primary Care Provider [phone] Reason for Visit * Reason Onset Date Comments Med Refill 11/17/2024 Encounter Details Date Type Department Care Team ([facility] st Contact Info) Description 11/17/2024 Telephone [facility] MEDICINE [address] [place] [address] Sarah Mathews MD [address] [place], [place] [phone] Med Refill Social History Tobacco Use Types Packs/Day Years [...] encounter Miscellaneous Notes * Telephone Encounter - Laxmi Dai LPN - 11/17/2024 1:02 PM EDT Please review request as medication was discontinued * Telephone Encounter - Daniel Champion - 11/17/2024 12:45 PM EDT TC from pt requesting medication refill. Medications needing refill : cetirizine (ZyrTEC) 10 MG tablet To be sent to: [facility] documented in this encounter Plan of Treatment Upcoming Encounters Date Type Department Care Team (Late st Contact Info) Description 03/08/2025 11:00 AM EDT Office Visit [facility] MED & PEDS [address] [place] [address] Sarah Mathews MD [address] [place] [address] documented as of this encounter Visit Diagnoses Not on filedocumented in this encounter Additional Health Concerns Assessment Noted Time PHQ-9 Depression Total Score: 2 04/29/20 24 10:19 AM EST documented as of this encounter Care Teams Institutional Research Director Relationship Specialty Start Date End Date Sarah Mathews MD [address] [facility] [place] [address] PCP - General Family Medicine 04/15/12 Juan BENITES 06/15/24 documented as of this encounter
--- OUTSIDE RECORDS SUMMARY | 2025-02-25 10:55 | XMS_ITS | Encounter Summary ---
Author Organization [employer] Address [address] 7t [place] [address] Care Team Providers Care Development Mechanic Name Role Phone Sarah Mathews MD Primary Care Provider [phone] Reason for Visit * Reason Onset Date Comments FYI 07/20/2024 Encounter Details Date Type Department Care Team ([facility] st Contact Info) Description 07/20/2024 Telephone C [facility]S [address] [place], [place] [phone] Sarah Mathews MD [address] [place] [address] FYI Social History Tobacco Use Types Packs/Day [...] - 07/20/2024 9:38 AM EST Tc from [facility] calling to inform pt missed today visit next visit is 07/23/24. documented in this encounter Plan of Treatment Upcoming Encounters Date Type Department Care Team (Late st Contact Info) Description 03/08/2025 11:00 AM EDT Office Visit [facility]C MED & PEDS [address] [place] [address] Sarah Mathews MD [address] [place] [address] documented as of this encounter Visit Diagnoses Not on filedocumented in this encounter Additional Health Concerns Assessment Noted Time PHQ-9 Depression Total Score: 2 04/29/20 24 10:19 AM EST documented as of this encounter Care Teams Development Mechanic Relationship Specialty Start Date End Date Sarah Mathews MD [address] [place] [address] PCP - General Family Medicine 04/15/12 Juan [facility] 06/15/24 documented as of this encounter
--- OUTSIDE RECORDS SUMMARY | 2025-02-25 10:55 | XMS_ITS | Patient Health Record ---
Author Organization [facility] Address [address] [place] [address] Care Team Providers Care Fire Equipment Operator Name Role Phone NEIL ECHAVARRIA Primary [...] Problem Status W/U Status Risk Notes Problem 866639207 Change in bowel habits (R19.4) Active confirmed Problem 295166390 Irritable bowel syndrome with diarrhea (K58.0) Active confirmed Problem 565587559 Long-term use of aspirin therapy (Z79.82) Active confirmed Plan Of Treatment Future Test Test Name Order Date COLONOSCOPY 05/09/2017 Insurance Providers Payer Name Payer Address Payer Phone Subscriber Number Group Number Insured Name Patient Relationship to Insured Coverage Start Date Coverage End Date [employer] MEDI COMPLETE (REFERRAL REQUIRED) [address] [address] [place] [address] [id number] ITZEL ANDREIAE Self - patient is the insured Medicare of [facility] [address] [place] [id number] ONEIL ROBBINS Self - patient is the insured MEDICAID OF [facility] [address] [place] [phone] [id number] ONEIL ROBBINS Self - patient is the insured Medical (General) History Medical History History ICD Code hypercholesterolemia trigger finger tobacco abuse past hx of diverticulitis Denies RI,DM,CVA,Lung disease,renal dise ase Surgical History Surgery Date(Month/Year) lumpectomy, right breast was on tamoxife n for 7 years tonsillectomy appendectomy partial hysterectomy
== END 2025-02-25 10:35 | disposition home or self-care (01) ==
LOC: HO.HUSH 09:54
PROVIDERS: PCP Student in an Organized Health Care Education/Training Program; Visit Provider Nurse Practitioner Family
DX: N39.0 Urinary tract infection, site not specified (principal); Z13.9 Encounter for screening, unspecified
CPT/HCPCS: 99204

== ENCOUNTER → 2025-02-25 09:53 | Outpatient (BNVA) | payer MEDICARE, MEDICAID, SELFPAY | PROVIDERS: PCP Student in an Organized Health Care Education/Training Program; Visit Provider Nurse Practitioner Family | DX: N39.0 Urinary tract infection, site not specified (principal); Z13.9 Encounter for screening, unspecified | CPT/HCPCS: 81003; 99202 ==

== ENCOUNTER 2025-04-07 09:51 | Outpatient (AMB) | payer MEDICARE, MEDICAID, SELFPAY ==
--- NOTE | 2025-04-07 10:11 | A.OFFVIS_ITS ---
Vital Signs 04/07/25 10:14 Height 5 ft 5 in Weight 130 lb 1.164 oz BMI 21.6 BP 110/60 Blood Pressure Location Lt brachial Position Sitting Pulse 69 Pulse Source Pulse Oximeter Pulse Oximetry (%) 95 Oxygen Delivery Method Room Air Intake Visit Reasons: COPD Intake Note: pt is here for follow up and states she is doing well, using oxygen. Aviation Tactical Readiness Officer Required: No Lead Customer Service Representative: Lead Customer Service Representative offered & declined Allergies nitrofurantoin Allergy (Verified 04/07/25 10:49) Nausea Medication List - Last Reconciled 04/07/25 by Janet Soliz MD albuterol sulfate 2.5 mg (3 mL) inhalation Q4H PRN albuterol sulfate 90 mcg/actuation (Ventolin HFA) 2 inhalations inhalation Q6H PRN alprazolam 0.25 mg PO BEDTIME PRN aspirin (Adult Low Dose Aspirin) 81 mg PO DAILY blood pressure test kit-large As directed cetirizine (All Day Allergy (cetirizine)) 10 mg PO DAILY estradiol 0.01%(0.1mg/gram) (Estrace) 1 g vaginal 3XW 90 days fluticasone furoate-vilanterol 100-25 mcg/dose (Breo Ellipta) 1 inh inhalation DAILY gemfibrozil 600 mg PO BID levothyroxine (Synthroid) 100 mcg PO DAILY ondansetron 8 mg PO Q8H pravastatin 20 mg PO BEDTIME Do you need a note to return to daycare/school/sports/work: No HPI HPI COPD: Details: THIS 84 YEARS OLD VERY PLEASANT FEMALE, A CASE OF COPD AND 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 BREATHING WILSON SHE HAS REMAINED VERY STABLE. DENIES ANY BOUTS OF COUGH OR WHEEZING. SHE DOES GET SHORT OF BREATH ON WALKING AROUND. STILL SMOKES 7 CIGARETTES A DAY. USES OXYGEN P.R.N. CONTINUES TO GET CHEMOTHERAPY WITHOUT HPI Comments Details: THIS 84 YEARS OLD VERY PLEASANT FEMALE IS HERE FOR HER ROUTINE 4 MONTHS FOLLOW- UP. BREATHING WILSON SHE REMAINS VERY STABLE AND DENIES ANY BOUTS OF COUGH OR WHEEZING. SHE USES BREO 100-251 PUFF DAILY AND ALBUTEROL JUST P.R.N.. SHE CONTINUES TO GET CHEMOTHERAPY FOR HER SMALL CELL CARCINOMA, WITHOUT MUCH SIDE EFFECTS RECENTLY HAD A PET SCAN , WHICH SHOWS DECREASE IN SIZE OF THE MASS RIGHT UPPER LOBE. THERE IS A QUESTIONABLE INCREASED UPTAKE IN THE STOMACH, PROBABLY NONSPECIFIC. SHE STILL SMOKES ABOUT 7 CIGARETTES A DAY. [facility] Medical History COPD (chronic obstructive pulmonary disease) Anemia Hypoxemia Smoker Diverticulosis Hypercholesteremia IBS (irritable bowel syndrome) HTN (hypertension) Surgical History Small cell carcinoma Hx of tonsillectomy Hx of appendectomy History of lumpectomy Lymphadenopathy, mediastinal Lung mass H/O colonoscopy Family History Sister Breast cancer Social History (Updated 04/07/25 @ 10:22 by Merlyn Barragan Daniella) Household Members: None Housing: Apartment Do you presently have visiting nurse or other home services: No Alcohol intake: never Patient Tobacco Use Status: Current everyday Tobacco user Tobacco use type: Cigarette Cigarette Packs Per Day: 0.25 Cigarettes Per Day: 6 Years Smoked: 60 e-Cigarette/Vaping Use: Currently Using Second Hand Smoke Exposure: No Advance Directives Date on File: 08/04/24 service: No Current occupational status: retired Review of Systems Const All systems reviewed & are unremarkable except as noted in HPI and below Eyes Reports no additional complaints ENT Reports no additional complaints Card Denies chest pain, Denies irregular heart rhythm and Denies leg edema Resp Reports as per HPI GI Reports no additional complaints Reports no additional complaints Musc Reports no additional complaints Skin/Breast Reports system reviewed and no additional complaints, except as documented Neuro Reports no additional complaints Psych Reports no additional complaints Physical Exam Vital Signs: Last Vital Signs Pulse 69 04/07/25 10:14 BP 110/60 04/07/25 10:14 Pulse Ox 95 04/07/25 10:14 Oxygen Delivery Method Room Air 04/07/25 10:14 BMI result Body Mass Index 21.6 Const General: healthy appearing, comfortable, no acute distress, alert and awake Orientation/consciousness: patient oriented x3 HEENT Head: Yes normal to inspection General nose exam: No nasal polyps present and No nasal discharge present Face and sinus: Yes sinuses nontender Mouth: oropharynx normal Throat: Yes posterior oropharynx normal Eyes General: appearance normal, both eyes and all related structures Neck Neck: Yes normal visual inspection, Yes no lymphadenopathy, Yes trachea midline and Yes no JVD Thyroid: Thyroid normal Chest Chest palpation & inspection: normal inspection of the chest, normal palpation of entire chest wall and no tenderness Breast/axilla inspection: Other (Port-A-Cath site in right pectoral area) Resp Other: Percussion note hyper-resonant. Breath sounds are slightly distant with prolonged expiratory phase. A few exp. wheezes especially over LLL. area No creps. Cardio Palpation: normal PMI Rate: regular rate Rhythm: regular rhythm Heart sounds: no gallops and no murmurs Peripheral pulses: Peripheral pulses 2+ throughout GI Palpation (GI): Soft to palpation, nontender, No hepatosplenomegaly present and no masses Auscultation: normal bowel sounds Back/Spine/Pelvis Thoracic/Lumbar Spine: thoracic and lumbar spine normal to inspection Skin General skin exam: no rashes or lesions noted Neuro General: patient oriented x3 and no focal motor deficits Cranial nerves: Yes CN's II-XII intact bilaterally Extrem General: Yes normal to inspection, Yes no clubbing, cyanosis or edema and Yes no calf tenderness Psych Appearance: grossly normal and well kempt Speech and movement: Normal speech and movement present Results Reviewed Results Reviewed: REPORT OF THE PET SCAN REVIEWED. SHOWS INTERVAL DECREASE IN THE SIZE AND FDG ACTIVITY OF THE RIGHT UPPER LOBE MASS. NONSPECIFIC FOCAL ACTIVITY WITHIN THE GASTRIC BODY AND FUNDUS . MAY NEED ENDOSCOPY Assessment & Plan Assessment & Plan (1) COPD (chronic obstructive pulmonary disease): Comment: Chronic obstructive pulmonary disease, mild to moderately severe and stable, Code(s): J44.9 - Chronic obstructive pulmonary disease, unspecified Category: Medical Plan: CONTINUE BREO 100-251 INHALATION DAILY. USE ALBUTEROL HFA OR ALBUTEROL SOLUTION IN THE NEBULIZER Q 4-6 HOURS ONLY P.R.N. FOR WHEEZING (2) Smoker: Comment: Past history of smoking for 45 pack years. Quit in 2022 Currently smoking about 6-7 cigarettes a day. Code(s): F17.200 - Nicotine dependence, unspecified, uncomplicated Category: Social Hx Plan: TALKED TO HER ABOUT QUITTING, WHICH SHE WILL NOT DO . I TOLD HER TO AT LEAST CUT DOWN THE NUMBER OF CIGARETTES , NO MORE THAN 5 CIGARETTES A DAY (3) Hypoxemia: Comment: SHE DOES HAVE EXERCISE INDUCED HYPOXEMIA, AND USES O2 2 L/MINUTE ONLY P.R.N., AFTER ANY BOUT OF PHYSICAL EXERTION. CAME TODAY WITHOUT O2 AND FEELS COMFORTABLE. 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 Yosef Wolff . Patient is progressing well. As per recent PET scan there is decrease in the size of the right upper lobe mass. Code(s): C80.1 - Malignant (primary) neoplasm, unspecified Category: Surgical Plan: Continue the present treatment Coding Level of Care Code Est Pt Level 3 (46445) Diagnoses COPD (chronic obstructive pulmonary disease) J44.9 Smoker F17.200 Hypoxemia R09.02 Small cell carcinoma C80.1
[2025-04-07 10:14] VITALS: BP 110/60; PULSE 69; O2SAT 95; BMI 21.6
--- OUTSIDE RECORDS SUMMARY | 2025-04-07 11:22 | XMS_ITS | Clinical Summary ---
Author Organization [employer] Address [address] [facility] [address] [place] [address] Care Team Providers Care National Van Owner Operator Name Role Phone Sarah Mathews MD Primary Care Provider [phone] Allergies No known active allergies Medications ALPRAZolam [...] Syncope 09/16/2023 Smoker 09/16/2023 Small cell carcinoma (CMS/HCC) 09/16/2023 Lymphadenopathy, mediastinal 09/16/2023 Lung mass 09/16/2023 [...] Encounters Date Type Department Care Team Description 03/08/2025 11:00 AM EDT Office Visit [facility] [address] [place] [address] Sarah Mathews MD Wound cellulitis (Primary Dx) 03/08/2025 Travel 03/05/2025 Telephone [facility] [address] [place] [address] Sarah Mathews MD Chart Prep 01/22/2025 Telephone [facility] [address] [place] [address] Sarah Mathews MD TC- canceled apt from Last 3 Months Immunizations Immunization Administration [...] Date Recorded Patient Health Questionnaire-9 Score 2 03/08/2025 Patient Health Questionnaire-9 Score 2 03/08/2025 Last PHQ-9: Questionnaire Data Not on file 0 03/08/2025 Housing Stability Answer Date Recorded What is [...] Date Recorded Patient Health Questionnaire-2 Score 1 03/08/2025 Internet Access Answer Date Recorded Internet Access [...] Sign Reading Time Taken Comments Blood Pressure 120/67 03/08/2025 11:04 AM EDT Pulse 67 03/08/2025 11:04 AM EDT Temperature 36.2 C (97.1 F) 03/08/2025 11:04 AM EDT Respiratory Rate 22 03/08/2025 11:04 AM EDT Oxygen Saturation 95% 03/08/2025 11:04 AM EDT Inhaled Oxygen Concentration - - Weight 59 kg (130 lb) 03/08/2025 11:04 AM EDT Height 165.1 cm (5' 5 ) 03/08/2025 11:04 AM EDT Body Mass Index 21.63 03/08/2025 11:04 AM EDT Plan of Treatment Upcoming Encounters Date Type Department Care Team (Late st Contact Info) Description 05/26/2025 9:15 AM EST Office Visit [facility] [address] [place] [address] Sandra Francois MD [address] [place] [address] Health Maintenance Due Date Last Done Comments Zoster Vaccines (2 of 3) 08/21/2015 06/26/2015 SDOH Screening 07/22/2025 07/22/2024 Alcohol/Substance Use Screening 07/29/2025 07/29/2024 COVID-19 Vaccine ( season) 2025 03/11/2025, 06/06/2022, 03/23/2021, Additional history exists Depression Screening 03/08/2026 03/08/2025, 03/08/20 Tobacco Screening 03/08/2026 03/08/2025 Lipid Panel 05/09/2029 05/09/2024, 04/0 01/2024, 12/21/2022, Additional history exists DTaP/Tdap/Td Vaccines (2 - Td or Tdap) 12/21/2032 12/21/2022, 02/21/2007 Pneumococcal Vaccine: 50+ Years Completed 09/02/2023, 02/04/2016 Influenza Vaccine Completed 03/11/2025, , 06/06/2022, Additional history exists RSV Patients and Patients Aged 60 years or older Completed 03/11/2025 HIB Vaccines Aged Out No longer eligi [...] Procedure Name Priority Date/Time Associated Diagnosis Comments LIPID PANEL, STANDARD Routine 05/09/2024 8:09 AM EST Primary hypertension Hypothyroidism, unspecified type from Last 3 Months or Most Recently Relevant to Health Maintenance Results * Lipid Panel, Standard (05/09/2024 8:09 AM EST) Triglycerides 48 <150 mg/dL [facility] Comment:Desirable Triglyceri de: less than 150 mg/dLBorderline High Triglyceride 150-199 mg/dLHigh Triglyceride: 200-499 mg/dLVery High Triglyceride: greater than or equal to 5OO mg/dL Cholesterol 158 <200 mg/dL [facility] Comment:Desirable Cholestero l: less than 200 mg/dLBorderline High Cholesterol: 200-239 mg/dLHigh Cholesterol: greater than 239 mg/dL LDL Cholesterol Calculated 82 <100 mg/dL [facility] Comment:Desirable LDL: less than 100 mg/dLNear Optimal/Above Optimal LDL: 110- 129 mg/dLBorderline High LDL: 130-159 mg/dLHigh LDL: 160-189 mg/dLVery High LDL: greater than or equal to 190 mg/dL HDL Cholesterol 67 >40 mg/dL [facility] Comment:Desirable HDL: great er than 40 mg/dL Note: This HDL assay may give artificially low results in patients with liver disease. Blood Venous blood specimen / Unknown 05/09/2024 8:09 AM EST 05/09/2024 8:09 AM EST us Sarah Mathews MD LAB BLOOD ORDERABLES Final Resul t [facility] [address] [place] [phone] from Last 3 Months or Most Recently Relevant to Health Maintenance Insurance [facility] MEDICARE ADVANTAGE HMO Care Teams National Van Owner Operator Relationship Specialty Start Date End Date Sarah Mathews MD [address] [place] [id number] PCP - General Family Medicine 04/15/12 [facility] 06/15/24
--- OUTSIDE RECORDS SUMMARY | 2025-04-07 11:22 | XMS_ITS | Encounter Summary ---
Author Organization [employer] Address [address] [facility] [address] [place] [address] Care Team Providers Care Gum Machine Filler Name Role Phone Sarah Mathews MD Primary Care Provider [phone] Reason for Visit * Reason Comments Med Refill Encounter Details Date Type Department Care Team ([facility] st Contact Info) Description 02/09/2024 Refill [facility] [address] [place] [address] Sarah Mathews MD [address] [place], [place] [phone] Primary hypertension Social History Tobacco Use Types [...] Description 05/26/2025 9:15 AM EST Office Visit [facility] [address] [place] [address] Sandra Francois MD [address] [place] [address] documented as of this encounter Visit Diagnoses Diagnosis Primary hypertension Unspecified essential hypertension documented in this encounter Care Teams Gum Machine Filler Relationship Specialty Start Date End Date Sarah Mathews MD [address] [place] [id number] PCP - General Family Medicine 04/15/12 [facility] 06/15/24 documented as of this encounter
--- OUTSIDE RECORDS SUMMARY | 2025-04-07 11:22 | XMS_ITS | Patient Health Record ---
Author Organization [facility] Address [address] [place] [address] Care Team Providers Care Rail Car Repairer Name Role Phone ITALIA NEIL Primary Care Provider [place] Jr Unavailable Reason For Referral No Information Medications Medication SIG (Take, Route, Frequency, Duration) Notes Start Date End Date Status Aspirin Adult Low Dose 81 MG 1 tablet Orally Once a day Active Ibuprofen 800 MG 1 tablet with food o r milk as needed Orally Three times a day Active ProAir HFA 108 (90 Base) MCG/ACT INHALE TWO PUFFS FOUR TIMES DAILY NEEDED Inhalation; Duration: 25 Active Pravastatin Sodium 20 MG Oral; Duration: 90 Active Nicotine 21 MG/24HR APPLY PATCH TO SKIN IN THE MORNING AND REMOVE AT NIGHT. DO NOT SMOKE WHILE USING PATCH Transdermal; Duration: 30 Active Colyte with Flavor Packs 240 GM As directed Orally Over the specified time.; Duration: 1 day(s) Active Gemfibrozil 600 MG Oral; Duration: 30 Active Social History Tobacco Use: Social [...] Problem Status W/U Status Risk Notes Problem Change in bowel habit (86815879) Change in bowel habits (R19.4) Active confirmed Problem Irritable bowel syndrome with diarrhea (943302956) Irritable bowel syndrome with diarrhea (K58.0) Active confirmed Problem Long-term current use of antiplatelet drug ([id number]) Long-term use of aspirin therapy (Z79.82) Active confirmed Plan Of Treatment Future Test Test Name Order Date COLONOSCOPY 05/09/2017 Insurance Providers Payer Name Payer Address Payer Phone Subscriber Number Group Number Insured Name Patient Relationship to Insured Coverage Start Date Coverage End Date [employer] MEDI COMPLETE (REFERRAL REQUIRED) [address] [address] [place] [address] [phone] [id number] ONEIL ROBBINS Self - patient is the insured Medicare of [facility] [address] [place] [phone] [id number] ONEIL ROBBINS Self - patient is the insured MEDICAID OF [facility] [address] [place] [phone] [id number] ONEIL ROBBINS Self - patient is the insured Medical (General) History Medical History History ICD Code hypercholesterolemia trigger finger tobacco abuse past hx of diverticulitis Denies SC,DM,CVA,Lung disease,renal dise ase Surgical History Surgery Date(Month/Year) lumpectomy, right breast was on tamoxife n for 7 years tonsillectomy appendectomy partial hysterectomy
--- OUTSIDE RECORDS SUMMARY | 2025-04-07 11:22 | XMS_ITS | Clinical Summary ---
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 (CMS/HCC V24, CMS/HCC V28) Discharge Disposition: Home or Self Care from Last 3 Months Social History Tobacco Use Types Packs/Day Years Used Date Smoking Tobacco: Never Assessed Comments Unknown Sex and Gender Information Value Date Recorded Sex Assigned at Not on file Legal Sex Female 1:09 PM EDT Gender Identity Not on file Sexual Orientation Not on file Plan of Treatment Health Maintenance Due Date Last Done Comments Zoster Vaccines (1 of 2) 08/21/2015 06/26/2015 RSV Immunization Adult Patients (1 - 1-dose 75+ series) 2016 Depression Screening 06/24/2024 COVID-19 Vaccine ( season) 2025 03/23/2021, 08/27/2020, 08/06/2020 Influenza Vaccine (#1) 2025 , 06/06/2022, 04/23/2021, Additional history exists Falls Risk Assessment 03/18/2025 Medicare Annual Wellness Visit 03/18/2025 Osteoporosis Screening (Bone Density Screening) 03/18/2025 Social Influencers of Health Screening 03/18/2025 Hypertension/CHF/CAD Annual BMP Blood Test 03/19/2025 Cholesterol Screening (Lipid Panel) 05/09/2029 05/09/2024 DTaP,Tdap,and Td Vaccines (3 - Td or Tdap) 12/21/2032 12/21/2022, 02/21/2007 [...] on patient's age to complete this topic MMR Vaccines Aged Out No longer eligi ble based on patient's age to complete this topic Meningococcal ACWY Vaccine Aged Out N o longer eligible based on patient's age to complete this topic Meningococcal B Vaccine Aged Out No l onger eligible based on patient's age to complete this topic RSV Immunization Patients Under 20 months Aged Out No longer eligible based on patient's age to complete this topic Varicella Vaccines Aged Out No longer eligible based on patient's age to complete this topic Procedures Procedure Name Priority Date/Time Associated Diagnosis Comments PET CT SKULL TO MID THIGH SUBSEQUENT Routine 03/19/2025 11:00 AM EDT 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 Interval decrease in size and FDG activity of right upper lobe mass and right paratracheal lymph node in keeping with treatment response. 2. Nonspecific focal activity within the gastric body and fundus. Correlation with patient's clinical symptoms and endoscopy is suggested. Please note: The CT was acquired at a low radiation dose settings. The images are of nondiagnostic quality and used solely for purposes of attenuation correction and slice localization for the PET scan. If a diagnostic CT study is desired it must be ordered separately. -------- FINAL REPORT -------- Dictated By: Elli Gomes Dictated Date: 03/23/2025 05:18 ET Assigned Physician: Elli Gomes Reviewed and Electronically Signed By: Elli Gomes Signed Date: 03/23/2025 10:23 ET Workstation ID: [id number] Transcribed By: Self Edit Transcribed Date: 03/23/2025 05:58 ET Narrative 03/23/2025 10:23 AM EDT INDICATION: RIGHT NON-SMALL CELL LUNG CANCER. History of breast cancer. Restaging. TECHNIQUE: FDG PET-CT imaging was performed from the skull bases through the thighs in a single acquisition with data set reconstructed in axial, coronal, and sagittal planes at the computer workstation with fused data from both the PET imaging study and attenuation correction CT. The CT portion of the examination was done strictly for attenuation correction and is not a true diagnostic CT examination. DLP: 478 mGy-cm Radiopharmaceutical: 12.8 mCi of F-18 FDG IV. Blood glucose: 74 mg/dl. COMPARISON: Outside PET/CT January 2023 FINDINGS: HEAD AND NECK: No abnormal FDG activity. THORAX: Right upper lobe mass SUV max 2.5 (previously 20.4) with surrounding linear opacities/architectural distortion in keeping with posttreatment appearance measuring up to SUV Max 2.0. Other small pulmonary nodules do not demonstrate significant FDG activity due to size. No significant FDG avid thoracic or axillary lymphadenopathy. Interval decrease in size and FDG activity of right paratracheal lymph node SUV max 1.7 (previously SUV Max 6.1) Right-sided Port-A-Cath with tip in the cavoatrial junction. Nonspecific mild activity within the esophagus. ABDOMEN/PELVIS: High density material within the fundus of the stomach. Nonspecific focal activity within the gastric body and fundus measuring up to SUV Max 11.6. Posterior gastric outpouching is again noted as well as a duodenal diverticulum. Diverticulosis with nonspecific bowel activity also involving the anal canal. Hepatic and splenic calcification which may represent stigmata of prior granulomatous disease. 3.1 cm abdominal aortic aneurysm (similar to prior). Low-attenuation lesion in the left kidney without significant FDG activity. MUSCULOSKELETAL: No abnormal FDG activity. Procedure Note Elli Gomes MD - 03/23/2025 INDICATION: RIGHT NON-SMALL CELL LUNG CANCER. History of breast cancer.Restaging. TECHNIQUE: FDG PET-CT imaging was performed from the skull bases throughthe thighs in a single acquisition with data set reconstructed in axial,coronal, and sagittal planes at the computer workstation with fused datafrom both the PET imaging study and attenuation correction CT. The CTportion of the examination was done strictly for attenuation correctionand is not a true diagnostic CT examination. DLP: 478 mGy-cm Radiopharmaceutical: 12.8 mCi of F-18 FDG IV. Blood glucose: 74 mg/dl. COMPARISON: Outside PET/CT January 2023 FINDINGS: HEAD AND NECK: No abnormal FDG activity. THORAX: Right upper lobe mass SUV max 2.5 (previously 20.4) withsurrounding linear opacities/architectural distortion in keeping withposttreatment appearance measuring up to SUV Max 2.0. Other smallpulmonary nodules do not demonstrate significant FDG activity due tosize. No significant FDG avid thoracic or axillary lymphadenopathy. Intervaldecrease in size and FDG activity of right paratracheal lymph node SUV max1.7 (previously SUV Max 6.1) Right-sided Port-A-Cath with tip in the cavoatrial junction. Nonspecificmild activity within the esophagus. ABDOMEN/PELVIS: High density material within the fundus of the stomach.Nonspecific focal activity within the gastric body and fundus measuring upto SUV Max 11.6. Posterior gastric outpouching is again noted as well asa duodenal diverticulum. Diverticulosis with nonspecific bowel activity also involving the analcanal. Hepatic and splenic calcification which may represent stigmata ofprior granulomatous disease. 3.1 cm abdominal aortic aneurysm (similar toprior). Low-attenuation lesion in the left kidney without significant FDGactivity. MUSCULOSKELETAL: No abnormal FDG activity. IMPRESSION: 1. Interval decrease in size and FDG activity of right upper lobe massand right paratracheal lymph node in keeping with treatment response. 2. Nonspecific focal activity within the gastric body and fundus.Correlation with patient's clinical symptoms and endoscopy is suggested. Please note: The CT was acquired at a low radiation dose settings. The images are ofnondiagnostic quality and used solely for purposes of attenuationcorrection and slice localization for the PET scan. If a diagnostic CTstudy is desired it must be ordered separately. -------- FINAL REPORT -------- Dictated By: Elli Gomes Dictated Date: 03/23/2025 05:18 ET Assigned Physician: Elli Gomes Reviewed and Electronically Signed By: Elli Gomes Signed Date: 03/23/2025 10:23 ET Workstation ID: [id number] Transcribed By: Self Edit Transcribed Date: 03/23/2025 05:58 ET Rex Wolff MD IMG NM PROCEDURES Final Result from Last 3 Months Insurance [employer] MEDICARE
--- OUTSIDE RECORDS SUMMARY | 2025-04-07 11:22 | XMS_ITS | Encounter Summary ---
Author Organization [employer] Address [address] [facility] 7t [place] [address] Care Team Providers Care Slot Shift Supervisor Name Role Phone Sarah Mathews MD Primary Care Provider [phone] Reason for Visit * Reason Onset Date Comments FYI 06/16/2024 Encounter Details Date Type Department Care Team ([facility] st Contact Info) Description 06/16/2024 Telephone [facility] MEDICINE [address] [place] [address] Sarah Mathews MD [address] [place], [place] [phone] FYI Social History Tobacco Use Types Packs/Day [...] Description 05/26/2025 9:15 AM EST Office Visit [facility] MED & PEDS [address] [place] [address] Sandra Francois MD [address] [place] [address] documented as of this encounter Visit Diagnoses Not on filedocumented in this encounter Additional Health Concerns Assessment Noted Time PHQ-9 Depression Total Score: 2 04/29/20 24 10:19 AM EST documented as of this encounter Care Teams Slot Shift Supervisor Relationship Specialty Start Date End Date Sarah Mathews MD [address] [place] [address] PCP - General Family Medicine 04/15/12 Juan BENITES 06/15/24 documented as of this encounter
--- OUTSIDE RECORDS SUMMARY | 2025-04-07 11:22 | XMS_ITS | Encounter Summary ---
Author Organization [employer] Address [address] [facility] 7t [place] [address] Care Team Providers Care Upper Trimmer Name Role Phone Sarah Mathews MD Primary Care Provider [phone] Reason for Visit * Reason Onset Date Comments Med Refill 11/17/2024 Encounter Details Date Type Department Care Team ([facility] st Contact Info) Description 11/17/2024 Telephone [facility] MEDICINE [address] [place] [address] Sarah Mathews MD [address] [place], [place] [phone] Med Refill Social History Tobacco Use Types [...] 9:15 AM EST Office Visit [facility] MED & PEDS [address] [place] [address] Sandra Francois MD [address] [place] [address] documented as of this encounter Visit Diagnoses Not on filedocumented in this encounter Additional Health Concerns Assessment Noted Time PHQ-9 Depression Total Score: 2 04/29/20 24 10:19 AM EST documented as of this encounter Care Teams Upper Trimmer Relationship Specialty Start Date End Date Sarah Mathews MD [address] [facility] [place] [address] PCP - General Family Medicine 04/15/12 Juan BENITES 06/15/24 documented as of this encounter
--- OUTSIDE RECORDS SUMMARY | 2025-04-07 11:22 | XMS_ITS | Encounter Summary ---
Author Organization [employer] Address [address] [facility] 7t [place] [address] Care Team Providers Care Airline Reservation Agent Name Role Phone Sarah Mathews MD Primary Care Provider [phone] Reason for Visit * Reason Onset Date Comments Nurse Triage 07/01/2024 Encounter Details Date Type Department Care Team ([facility] st Contact Info) Description 07/01/2024 Telephone [facility] MEDICINE [address] [place] [address] Sarah Mathews MD [address] [place], [place] [phone] Nurse Triage Social History Tobacco Use Types [...] speak for Pt. Pt was admitted to [facility] 06/11/24for dx of copd exacerbation and covid. Pt was discharged 06/13/24. Pt has been having low blood pressure even while in the hospital. Note, Pt has been undergoing chemotherapy prior to ED visit. Pt was seen by traffic court referee yesterday and had a BP of 84/48. [...] this advice and disposition. ASK apt in [facility] today at 240pm. Insurance is verified [...] Upcoming Encounters Date Type Department Care Team ([facility] st Contact Info) Description 05/26/2025 9:15 AM EST Office Visit [facility] MED & PEDS [address] [place] [address] Sandra Francois MD [address] [place] [address] documented as of this encounter Visit Diagnoses Not on filedocumented in this encounter Additional Health Concerns Assessment Noted Time PHQ-9 Depression Total Score: 2 04/29/20 24 10:19 AM EST documented as of this encounter Care Teams Airline Reservation Agent Relationship Specialty Start Date End Date Sarah Mathews MD [address] [place] [address] PCP - General Family Medicine 04/15/12 Juan BENITES 06/15/24 documented as of this encounter
--- OUTSIDE RECORDS SUMMARY | 2025-04-07 11:22 | XMS_ITS | Encounter Summary ---
Author Organization [employer] Address [address] [facility] 7t [place] [address] Care Team Providers Care Medical Reception Specialist Name Role Phone Sarah Mathews MD Primary Care Provider [phone] Reason for Visit * Reason Onset Date Comments Hospital Follow-up 08/05/2024 Encounter Details Date Type Department Care Team ([facility] st Contact Info) Description 08/05/2024 Telephone [facility] MEDICINE [address] [place] [address] Sarah Mathews MD [address] [place], [place] [phone] Hospital Follow-up Social History Tobacco Use Types [...] Miscellaneous Notes * Telephone Encounter - Abel Shieldsyes - 08/05/2024 3:54 PM EST Tc from pt requesting a HDF appt. Hospital: [facility] Date of admission: 08/03/2024 Discharge date: 08/05/2024 Diagnosed: Respiratory Problems and UTI *Send message to Welcome Clinical Care Coordinators documented in this encounter Plan of Treatment Upcoming Encounters Date Type Department Care Team (Late st Contact Info) Description 05/26/2025 9:15 AM EST Office Visit [facility] MED & PEDS [address] [place] [address] Sandra Francois MD [address] [place] [address] documented as of this encounter Visit Diagnoses Not on filedocumented in this encounter Additional Health Concerns Assessment Noted Time PHQ-9 Depression Total Score: 2 04/29/20 24 10:19 AM EST documented as of this encounter Care Teams Medical Reception Specialist Relationship Specialty Start Date End Date Sarah Mathews MD [address] [place] [address] PCP - General Family Medicine 04[facility]15[facility]12 [facility] documented as of this encounter
--- OUTSIDE RECORDS SUMMARY | 2025-04-07 11:22 | XMS_ITS | Encounter Summary ---
Author Organization [employer] Address [address] [facility] 7t [place] [address] Care Team Providers Care Coding Analyst Name Role Phone Sarah Mathews MD Primary Care Provider [phone] Reason for Visit * Reason Onset Date Comments FYI 09/16/2023 Encounter Details Date Type Department Care Team ([facility] st Contact Info) Description 09/16/2023 Telephone C [facility] MED & PEDS [address] [place], [place] [phone] Sarah Mathews MD [address] [place], [place] [phone] FYI Social History Tobacco Use Types Packs/Day [...] MG tablet. Any questions, contact [place] at [phone] documented in this encounter Plan of Treatment Upcoming Encounters Date Type Department Care Team (Late st Contact Info) Description 05/26/2025 9:15 AM EST Office Visit [facility] MED & PEDS [address] [place] [address] Sandra Francois MD [address] [place] [address] documented as of this encounter Visit Diagnoses Not on filedocumented in this encounter Care Teams Coding Analyst Relationship Specialty Start Date End Date Sarah Mathews MD [address] [place] [address] PCP - General Family Medicine 04/15/12 Juan BENITES 06/15/24 documented as of this encounter
--- OUTSIDE RECORDS SUMMARY | 2025-04-07 11:22 | XMS_ITS | Clinical Summary ---
Author Organization [facility] Address [address] [facility] [address] [place] [address] Phone Care Team Providers Care Blasting Worker Name Role Phone Sarah Mathews MD Primary Care Provider [phone] Yosef Wolff MD Unavailable [phone] Allergies No known active allergies Medications albuterol [...] PCV) 02/03/2017 02/04/2016 BLOOD PRESSURE 10/22/2023 04/23/2023 LIPID PANEL 09/29/2024 09/30/2023, 12/21/2022 INFLUENZA VACCINE (#1) 2025 COVID-19 VACCINE (2024-2 6 season) 2025 Adult Td,Tdap Booster 12/21/2032 12/21/2022 HEPATITIS A [...] topic Medical Devices Not on file Insurance MEDICARE REPLACEMENT [facility] FULL MEDICARE PART A & B [facility] AAR MEDICARE REPLACEMENT [facility] FULL MEDICARE PART A & B [facility] [place] [address] [place] [address] MEDICARE REPLACEMENT [facility] FULL MEDICARE PART A & B [facility] [place] [id number] [address] FULL MEDICARE PART A & B [facility] AARP MEDICARE REPLACEMENT [facility] FULL MEDICARE PART A & B [facility] MEDICARE REPLACEMENT [facility] FULL MEDICARE PART A & B Member Subscriber Plan / Payer (Ef fective 2006-Present) Name:Janine Felder Member ID:[id number] Relation to Subscriber:Self Name:Janine Felder Subscriber ID:[id number] Payer ID:[id number] Group ID:Not on file Type:Medicare Address: [facility] [address] [place] [address] [facility] Care Teams Blasting Worker Relationship Specialty Start Date End Date Sarah Mathews MD [address] [place] [address] PCP - General Family Medicine 04/09/23 Yosef Wolff MD [address] [place] [address] Primary Oncologist 07/08/23 Additional Source Comments The information contained in this document represents components of the legal health record. It is not the complete legal health record.[facility]
--- OUTSIDE RECORDS SUMMARY | 2025-04-07 11:22 | XMS_ITS | Encounter Summary ---
Author Organization [employer] Address [address] [facility] 7t [place] [address] Care Team Providers Care Honey Producer Name Role Phone Sarah Mathews MD Primary Care Provider [phone] Reason for Visit * Reason Onset Date Comments FYI 07/20/2024 Encounter Details Date Type Department Care Team ([facility] st Contact Info) Description 07/20/2024 Telephone C [facility] MED [facility] PEDS [address] [place], [place] [phone] Sarah Mathews MD [address] [place] [address] FYI Social History Tobacco Use Types Packs/Day [...] - 07/20/2024 9:38 AM EST Tc from [facility] with [facility] calling to inform pt missed today visit next visit is 07/23/24. documented in this encounter Plan of Treatment Upcoming Encounters Date Type Department Care Team (Late st Contact Info) Description 05/26/2025 9:15 AM EST Office Visit [facility] MED & PEDS [address] [place] [address] Sandra Francois MD [address] [place] [address] documented as of this encounter Visit Diagnoses Not on filedocumented in this encounter Additional Health Concerns Assessment Noted Time PHQ-9 Depression Total Score: 2 04/29/20 24 10:19 AM EST documented as of this encounter Care Teams Honey Producer Relationship Specialty Start Date End Date Sarah Mathews MD [address] [place] [address] PCP - General Family Medicine 04/15/12 [facility] 06/15/24 documented as of this encounter
--- OUTSIDE RECORDS SUMMARY | 2025-04-07 11:22 | XMS_ITS | Encounter Summary ---
Author Organization [employer] Address [address] [facility] 7t [place] [address] Care Team Providers Care Guitar Technician Name Role Phone Sarah Mathews MD Primary Care Provider [phone] Reason for Visit * Reason Onset Date Comments Medication Question 07/29/2024 Encounter Details Date Type Department Care Team ([facility] st Contact Info) Description 07/29/2024 Telephone C [facility] MED [facility] PEDS [address] [place], [place] [phone] Sarah Mathews MD [address] [place] [address] Medication Question Social History Tobacco Use Types [...] give Pt 10 mg. Contact pt at [phone] * Telephone Encounter - Abel Rutledge - 07/30/2024 4:08 PM EST Tc from Pt daughter requesting that 10 mg furosemide (Lasix) could be sent to [id number] AT [facility]. Pt daughter is also waiting for call to schedule and endogram for pt. Daughter Contact: [phone] * Telephone Encounter - Sarah Mathews MD - 07/29/2024 6:33 PM EST Please send verbal order of 10mg.[facility] does not let me send 10mg * Telephone Encounter - Melissa Kirby - 07/29/2024 12:15 PM EST Tc from pt daughter Lamar calling to inform went to [facility] medication furosemide (Lasix) 20 MG tablet but was advised by a pharmacist to contact pcp office to switch script over to 10 mg instead of 20 mg so that its easier to spilt medication in half. Any further questions please contact phone # [phone] documented in this encounter Plan of Treatment Upcoming Encounters Date Type Department Care Team ([facility] st Contact Info) Description 05/26/2025 9:15 AM EST Office Visit [facility] MED & PEDS [address] [place] [address] Snadra Francois MD [address] [place] [address] documented as of this encounter Visit Diagnoses Not on filedocumented in this encounter Additional Health Concerns Assessment Noted Time PHQ-9 Depression Total Score: 2 04/29/20 24 10:19 AM EST documented as of this encounter Care Teams Guitar Technician Relationship Specialty Start Date End Date Sarah Mathews MD [address] [place] [address] PCP - General Family Medicine 04/15/12 Juan BENITES 06/15/24 documented as of this encounter
--- OUTSIDE RECORDS SUMMARY | 2025-04-07 11:22 | XMS_ITS | Encounter Summary ---
Author Organization [employer] Address [address] [place] [address] 7 [place] [address] Care Team Providers Care Gluten Settling Tender Name Role Phone Sarah Mathews MD Primary Care Provider [phone] Reason for Referral * Consultation (Routine) - Closed Specialty Diagnoses / Procedures Referred By Contac t Referred To Contact Pharmacy Diagnoses Urinary tract infection without hematuria, site unspecified Tash Walker, PharmD [address] [place] [address] Phone: tel: fax: Referral ID Status Reason Start Date Expiration Date V isits Requested Visits Authorized [id number] Closed Continuity of Care 09/12/2023 09/11/2024 1 1 Encounter Details Date Type Department Care Team (Late st Contact Info) Description 09/12/2023 Orders Only [facility] MEDICINE [address] [place], [place] [phone] Tash Walker, PharmD [address] [place], [place] [phone] Urinary tract infection without hematuria, site unspecified [...] Description 05/26/2025 9:15 AM EST Office Visit [facility] MED & PEDS [address] [place] [address] Sandra Francois MD [address] [place] [address] Scheduled Referrals Name Type Priority Associated Diagnoses Orde r Schedule Referral to Pharmacy MTM Outpatient Referral Routine Urinary tract infection without hematuria, site unspecified Ordered: 09/12/2023 documented as of this encounter Visit Diagnoses Diagnosis Urinary tract infection without hematuria, site unspecified- Primary documented in this encounter Care Teams Gluten Settling Tender Relationship Specialty Start Date End Date Sarah Mathews MD [address] [place] [address] PCP - General Family Medicine 04/15/12 Juan BENITES 06/15/24 documented as of this encounter
--- OUTSIDE RECORDS SUMMARY | 2025-04-07 11:22 | XMS_ITS | Encounter Summary ---
Author Organization [employer] Address 75 [facility] 7t [place] [address] Care Team Providers Care Kitchen Designer Name Role Phone Sarah Mathews MD Primary Care Provider [phone] Reason for Visit * Reason Onset Date Comments Results 10/09/2023 Encounter Details Date Type Department Care Team ([facility] st Contact Info) Description 10/09/2023 Telephone [facility] CHC MED & PEDS [address] [place], [place] [phone] Sarah Mathews MD [address] [place], [place] [phone] Results Social History Tobacco Use Types Packs/Day [...] for ordered:liver panel, BMP, lipid panel from [facility] and printed to [facility] for medical records and for providerto [...] needed. RN will forward message to [facility] to obtain lab results for provider. TC from pt daughter requesting call back regarding Results. Type of results: labs Date when done: 09/30/23 Facility: [facility] [place] * Telephone Encounter - Melissa Kirby - 10/09/2023 12:35 PM EDT TC from pt daughter requesting call back regarding Results. Type of results: labs Date when done: 09/30/23 Facility: [facility] [place] documented in this encounter Plan of Treatment Upcoming Encounters Date Type Department Care Team (Late st Contact Info) Description 05/26/2025 9:15 AM EST Office Visit [facility] MED & PEDS [address] [place] [address] Sandra Francois MD [address] [place] [address] documented as of this encounter Visit Diagnoses Not on filedocumented in this encounter Care Teams Kitchen Designer Relationship Specialty Start Date End Date Sarah Mathews MD [address] [place] [address] PCP - General Family Medicine 04/15/12 Juan BENITES 06/15/24 documented as of this encounter
--- OUTSIDE RECORDS SUMMARY | 2025-04-07 11:22 | XMS_ITS | Encounter Summary ---
Author Organization [employer] Address 75 [facility] 7t [place] [address] Care Team Providers Care Chemistry Laboratory Technician Name Role Phone Sarah Mathews MD Primary Care Provider [phone] Reason for Visit * Reason Onset Date Comments Hospital Follow-up 09/11/2023 Encounter Details Date Type Department Care Team ([facility] Contact Info) Description 09/11/2023 Telephone C [facility] MED & PEDS [address] [place], [place] [phone] Sarah Mathews MD 505 [place], [place] [phone] Hospital Follow-up Social History Tobacco Use Types [...] from pt requesting a HDF appt. Hospital: [facility] [place] Date of admission: 09/06 Discharge date: 09/08 Diagnosed: UTI, Fall, Acute kidney injury, Hypokalemia Please contact daughter at [phone] documented in this encounter Plan of Treatment Upcoming Encounters Date Type Department Care Team (Late st Contact Info) Description 05/26/2025 9:15 AM EST Office Visit [facility] CHC MED & PEDS [address] [place] [address] Sandra Francois MD [address] [place] [address] documented as of this encounter Visit Diagnoses Not on filedocumented in this encounter Care Teams Chemistry Laboratory Technician Relationship Specialty Start Date End Date Sarah Mathews MD [address] [place] [address] PCP - General Family Medicine 04/15/12 [facility] 06/15/24 documented as of this encounter
== END 2025-04-07 10:40 | disposition home or self-care (01) ==
LOC: HO.HPS 09:52
PROVIDERS: PCP Student in an Organized Health Care Education/Training Program; Visit Provider Internal Medicine
DX: J44.9 Chronic obstructive pulmonary disease, unspecified (principal); F17.200 Nicotine dependence, unspecified, uncomplicated; R09.02 Hypoxemia; C80.1 Malignant (primary) neoplasm, unspecified
CPT/HCPCS: 99213

== ENCOUNTER → 2025-04-07 09:51 | Outpatient (BNVA) | payer MEDICARE, MEDICAID, SELFPAY | PROVIDERS: PCP Student in an Organized Health Care Education/Training Program; Visit Provider Internal Medicine | DX: J44.9 Chronic obstructive pulmonary disease, unspecified (principal); F17.210 Nicotine dependence, cigarettes, uncomplicated; R09.02 Hypoxemia; C80.1 Malignant (primary) neoplasm, unspecified | CPT/HCPCS: 99212 ==

== ENCOUNTER 2025-05-06 10:45 | Outpatient (REF) | payer MEDICARE, MEDICAID, SELFPAY ==
--- NOTE | ~2025-05-06 | US_ITS ---
CLINICAL HISTORY: N39.0 - Urinary tract infection, site not specified US Renal Comparison: None provided Findings: Right kidney normal size and echotexture, 9.1 cm length. Left kidney normal size and echotexture, 8.3 cm length. No collecting system dilatation of either kidney. Normal color Doppler. Left renal cortical Bosniak 1 cyst measuring 3.5 x 3.5 x 3.2 cm Urinary bladder is unremarkable. Prevoid volume 245 mL. Postvoid volume 0 mL. Bilateral ureteral jets are visualized. IMPRESSION: 1. No acute findings This document has been electronically signed by: Willi Ratliff MD on 05/07/2025 11:45:31
--- OUTSIDE RECORDS SUMMARY | 2025-05-06 13:14 | XMS_ITS | Clinical Summary ---
Author Organization [email or web address] Address 75 [facility] 7t [place] [address] Care Team Providers Care Gristmiller Name Role Phone Sandra Francois MD Primary Care Provider [phone] Allergies No known active allergies Medications ALPRAZolam [...] 03/08/2025 11:00 AM EDT Office Visit [facility] MED & PEDS [address] [place] [address] Sarah Mathews MD Wound cellulitis (Primary Dx) 03/08/2025 Travel 03/05/2025 Telephone [facility] MED & PEDS [address] [place] [address] Sarah Mathews MD Chart Prep from Last 3 Months Immunizations Immunization Administration [...] Description 05/26/2025 9:15 AM EST Office Visit [facility] CHC MED & PEDS 505 [place] [address] Sandra Francois MD 505 [place] [address] Health Maintenance Due Date Last Done Comments [...] 8:09 AM EST) Triglycerides 48 <150 mg/dL [facility] Comment:Desirable Triglyceri de: less than 150 mg/dLBorderline High Triglyceride 150-199 mg/dLHigh Triglyceride: 200-499 mg/dLVery High Triglyceride: greater than or equal to 5OO mg/dL Cholesterol 158 <200 mg/dL [facility] Comment:Desirable Cholestero l: less than 200 mg/dLBorderline High Cholesterol: 200-239 mg/dLHigh Cholesterol: greater than 239 mg/dL LDL Cholesterol Calculated 82 <100 mg/dL [facility] Comment:Desirable LDL: less than 100 mg/dLNear Optimal/Above Optimal LDL: 110- 129 mg/dLBorderline High LDL: 130-159 mg/dLHigh LDL: 160-189 mg/dLVery High LDL: greater than or equal to 190 mg/dL HDL Cholesterol 67 >40 mg/dL [facility] Comment:Desirable HDL: great er than 40 mg/dL Note: This HDL assay may give artificially low results in patients with liver disease. Blood Venous blood specimen / Unknown 05/09/2024 8:09 AM EST 05/09/2024 8:09 AM EST us Sarah Mathews MD LAB BLOOD ORDERABLES Final Resul t [facility] [address] [place] [address] [phone] from Last 3 Months or Most Recently Relevant to Health Maintenance Insurance [employer] FULL [facility] MEDICARE ADVANTAGE HMO Care Teams Gristmiller Relationship Specialty Start Date End Date Sandra Francois MD [address] [place] [address] PCP - General Family Medicine 04/21/25 Juan BENITES 06/15/24
--- OUTSIDE RECORDS SUMMARY | 2025-05-06 13:14 | XMS_ITS | Encounter Summary ---
Author Organization [email or web address] Address 75 [facility] 7t [place] [address] Care Team Providers Care Transportation Director Name Role Phone Sarah Mathews MD Primary Care Provider [phone] Sandra Francois MD Primary Care Provider [phone] Reason for Visit * Reason Onset Date Comments Medication Question 07/29/2024 Encounter Details Date Type Department Care Team ([facility] Contact Info) Description 07/29/2024 Telephone C [facility] MED [facility] PEDS 505 [place], [place] [phone] Sarah Mathews MD 505 [place] [address] Medication Question Social History Tobacco Use Types [...] Pt 10 mg. Contact pt at [phone] * Telephone Encounter - Abel Rutledge - 07/30/2024 4:08 PM EST Tc from Pt daughter requesting that 10 mg furosemide (Lasix) could be sent to [id number] - [place], [place] - [address] [place] [address] AT [address] [facility]. Pt daughter is also waiting for call to schedule and endogram for pt. Daughter Contact: [phone] * Telephone Encounter - Sarah Mathews MD - 07/29/2024 6:33 PM EST Please send verbal order of 10mg.[facility] does not let me send 10mg * Telephone Encounter - Melissa Kirby - 07/29/2024 12:15 PM EST Tc from pt daughter Lamar calling to inform went to pick up driver medication furosemide (Lasix) 20 MG tablet but was advised by a pharmacist to contact pcp office to switch script over to 10 mg instead of 20 mg so that its easier to spilt medication in half. Any further questions please contact phone # [phone] documented in this encounter Plan of Treatment Upcoming Encounters Date Type Department Care Team ([facility] st Contact Info) Description 05/26/2025 9:15 AM EST Office Visit [facility] MED & PEDS 505 [place] [address] Sandra Francois MD 505 [place] [address] documented as of this encounter Visit Diagnoses Not on filedocumented in this encounter Additional Health Concerns Assessment Noted Time PHQ-9 Depression Total Score: 2 04/29/20 24 10:19 AM EST documented as of this encounter Care Teams Transportation Director Relationship Specialty Start Date End Date Sarah Mathews MD [address] [place] [address] PCP - General Family Medicine 04/15/12 04/20/25 Sandra Francois MD [address] [place] [address] PCP - General Family Medicine 04/21/25 Juan A 06/15/24 documented as of this encounter
--- OUTSIDE RECORDS SUMMARY | 2025-05-06 13:15 | XMS_ITS | Encounter Summary ---
Author Organization [employer] Address 75 [facility] 7t [place] [address] Care Team Providers Care Nursing Professor Name Role Phone Sarah Mathews MD Primary Care Provider [phone] Sandra Francois MD Primary Care Provider [phone] Reason for Visit * Reason Onset Date Comments FYI 06/16/2024 Encounter Details Date Type Department Care Team ([facility] Contact Info) Description 06/16/2024 Telephone [facility] MEDICINE [address] [place] [address] Sarah Mathews MD [address] [place] [address] FYI Social History Tobacco Use Types Packs/Day [...] - 06/16/2024 11:21 AM EST Tc from [place] [facility] Stating that they admitted pt into Physical Therapy and will be seeing pt once a week. documented in this encounter Plan of Treatment Upcoming Encounters Date Type Department Care Team (Late st Contact Info) Description 05/26/2025 9:15 AM EST Office Visit [facility] MED & PEDS 505 [place] [address] Sandra Francois MD 505 [place] [address] documented as of this encounter Visit Diagnoses Not on filedocumented in this encounter Additional Health Concerns Assessment Noted Time PHQ-9 Depression Total Score: 2 04/29/20 24 10:19 AM EST documented as of this encounter Care Teams Nursing Professor Relationship Specialty Start Date End Date Sarah Mathews MD [address] [place] [address] PCP - General Family Medicine 04/15/12 04/20/25 Sandra Francois MD [address] [place] [address] PCP - General Family Medicine 04/21/25 Juan BENITES 06/15/24 documented as of this encounter
--- OUTSIDE RECORDS SUMMARY | 2025-05-06 13:15 | XMS_ITS | Encounter Summary ---
Author Organization [employer] Address 75 [facility] 7t [place] [address] Care Team Providers Care Reading Coach Name Role Phone Sarah Mathews MD Primary Care Provider Sandra Francois MD Primary Care Provider [phone] Reason for Visit * Reason Onset Date Comments FYI 09/16/2023 Encounter Details Date Type Department Care Team ([facility] Contact Info) Description 09/16/2023 Telephone [facility] CHC MED & PEDS [address] [place], [place] [phone] Sarah Mathews MD 505 [place] [address] FYI Social History Tobacco Use Types Packs/Day [...] MG tablet. Any questions, contact [place] at [phone] documented in this encounter Plan of Treatment Upcoming Encounters Date Type Department Care Team (Late st Contact Info) Description 05/26/2025 9:15 AM EST [facility] [address] [place] [address] Sandra Francois MD 505 [place] [address] documented as of this encounter Visit Diagnoses Not on filedocumented in this encounter Care Teams Reading Coach Relationship Specialty Start Date End Date Sarah Mathews MD [address] [place] [address] PCP - General Family Medicine 04/15/12 04/20/25 Sandra Francois MD [address] [place] [address] PCP - General Family Medicine 04/21/25 Juan BENITES 06/15/24 documented as of this encounter
--- OUTSIDE RECORDS SUMMARY | 2025-05-06 13:15 | XMS_ITS | Clinical Summary ---
Author Organization 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
--- OUTSIDE RECORDS SUMMARY | 2025-05-06 13:15 | XMS_ITS | Clinical Summary ---
Author Organization [facility] Address [address] [facility] [address] [place] [address] Phone Care Team Providers Care Advertising Campaign Manager Name Role Phone Sarah Mathews MD Primary Care Provider [phone] Yosef Wolff MD Unavailable [phone] Allergies No known active allergies Medications albuterol [...] patient's age to complete this topic IPV VACCINES Aged Out No longer eligi ble based on patient's age to complete this topic MENINGOCOCCAL VACCINES (ACWY) Aged Out No longer eligible based on patient's age to complete this topic MENINGOCOCCAL VACCINES (B) Aged Out N o longer eligible based on patient's age to complete this topic Medical Devices Not on file Insurance MEDICARE REPLACEMENT FULL MEDICARE PART A & B [facility] AARP MEDICARE REPLACEMENT [facility] FULL MEDICARE PART A & B [facility] AARP MEDICARE REPLACEMENT [facility] FULL MEDICARE PART A & B [facility] [place] [address] MEDICARE REPLACEMENT [facility] FULL MEDICARE PART A & B [facility] QMB [facility] MEDICARE REPLACEMENT FULL MEDICARE PART A & B [facility] QMB [facility] AARP MEDICARE REPLACEMENT [facility] FULL MEDICARE PART A & B [facility] [place] [phone] Care Teams Advertising Campaign Manager Relationship Specialty Start Date End Date Sarah Mathews MD [address] [place] [address] PCP - General Family Medicine 04/09/23 Yosef Wolff MD [address] [place] [address] Primary Oncologist 07/08/23 Additional Source Comments The information contained in this document represents components of the legal health record. It is not the complete legal health record.[facility]
--- OUTSIDE RECORDS SUMMARY | 2025-05-06 13:15 | XMS_ITS | Encounter Summary ---
Author Organization [employer] Address [address] [place] [address] 7 [place] [address] Care Team Providers Care Pipe Blanks Cut Off Saw Operator Name Role Phone Sarah Mathews MD Primary Care Provider [phone] Sandra Francois MD Primary Care Provider [phone] Reason for Referral * Consultation (Routine) - Closed Specialty Diagnoses / Procedures Referred By Contac t Referred To Contact Pharmacy Diagnoses Urinary tract infection without hematuria, site unspecified Tash Walker, PharmD [address] [place] [address] Phone: tel: fax: Referral ID Status Reason Start Date Expiration Date V isits Requested Visits Authorized [id number] Closed Continuity of Care 09/12/2023 09/11/2024 1 1 Encounter Details Date Type Department Care Team (Late st Contact Info) Description 09/12/2023 Orders Only [facility] MEDICINE [address] [place], [place] [phone] Tash Walker, PharmD [address] [place], [place] [phone] Urinary tract infection without hematuria, site unspecified [...] the past 12 months, has t he [employer], gas, oil or water [employer] threatened to shut off services in your [...] Description 05/26/2025 9:15 AM EST Office Visit [facility] CHC MED & PEDS 505 [place] [address] Sandra Francois MD 505 [place] [address] Scheduled Referrals Name Type Priority Associated Diagnoses Orde r Schedule Referral to Pharmacy MTM Outpatient Referral Routine Urinary tract infection without hematuria, site unspecified Ordered: 09/12/2023 documented as of this encounter Visit Diagnoses Diagnosis Urinary tract infection without hematuria, site unspecified- Primary documented in this encounter Care Teams Pipe Blanks Cut Off Saw Operator Relationship Specialty Start Date End Date Sarah Mathews MD [address] [place] [address] PCP - General Family Medicine 04/15/12 04/20/25 Sandra Francois MD 505 [place] [address] PCP - General Family Medicine 04/21/25 Juan LANGE 06/15/24 documented as of this encounter
--- OUTSIDE RECORDS SUMMARY | 2025-05-06 13:15 | XMS_ITS | Encounter Summary ---
Author Organization [employer] Address 75 [facility] 7t [place] [address] Care Team Providers Care Bowling Ball Weigher And Packer Name Role Phone Sarah Mathews MD Primary Care Provider [phone] Sandra Francois MD Primary Care Provider [phone] Reason for Visit * Reason Onset Date Comments Hospital Follow-up 09/11/2023 Encounter Details Date Type Department Care Team ([facility] Contact Info) Description 09/11/[address] [facility] CHC MED & PEDS [address] [place], [place] [phone] Sarah Mathews MD 505 [place] [address] Hospital Follow-up Social History Tobacco Use Types [...] from pt requesting a HDF appt. [place] [facility] admission[place] 09/06 Discharge date: 09/08 Diagnosed: UTI, Fall, Acute kidney injury, Hypokalemia Please contact daughter at [phone] documented in this encounter Plan of Treatment Upcoming Encounters Date Type Department Care Team (Late st Contact Info) Description 05/26/2025 9:15 AM EST Office Visit [facility] CHC MED & PEDS [address] [place] [address] Sandra Francois MD [address] [place] [address] documented as of this encounter Visit Diagnoses Not on filedocumented in this encounter Care Teams Bowling Ball Weigher And Packer Relationship Specialty Start Date End Date Sarah Mathews MD [address] [place] [address] PCP - General Family Medicine 04/15/12 04/20/25 Sandra Francois MD [address] [place] [address] PCP - General Family Medicine 04/21/25 [facility] 06/15/24 documented as of this encounter
--- OUTSIDE RECORDS SUMMARY | 2025-05-06 13:15 | XMS_ITS | Encounter Summary ---
Author Organization [employer] Address 75 [facility] 7t [place] [address] Care Team Providers Care Cooker Tender Name Role Phone Sarah Mathews MD Primary Care Provider [phone] Sandra Francois MD Primary Care Provider Reason for Visit * Reason Onset Date Comments FYI 07/20/2024 Encounter Details Date Type Department Care Team ([facility] Contact Info) Description 07/20/2024 Telephone C [facility] MED [facility] PEDS [address] [place], [place] [phone] Sarah Mathews MD 505 [place] [address] FYI Social History Tobacco Use Types Packs/Day [...] Kirby - 07/20/2024 9:38 AM EST Tc r[facility] calling to inform pt missed today visit next visit is 07/23/24. documented in this encounter Plan of Treatment Upcoming Encounters Date Type Department Care Team (Late st Contact Info) Description 05/26/2025 9:15 AM EST Office Visit [facility] CHC MED & PEDS [address] [place] [address] Sandra Francois MD [address] [place] [address] documented as of this encounter Visit Diagnoses Not on filedocumented in this encounter Additional Health Concerns Assessment Noted Time PHQ-9 Depression Total Score: 2 04/29/20 24 10:19 AM EST documented as of this encounter Care Teams Cooker Tender Relationship Specialty Start Date End Date Sarah Mathews MD [address] [place] [address] PCP - General Family Medicine 04/15/12 04/20/25 Sandra Francois MD [address] [place] [address] PCP - General Family Medicine 04/21/25 Juan BENITES 06/15/24 documented as of this encounter
--- OUTSIDE RECORDS SUMMARY | 2025-05-06 13:15 | XMS_ITS | Encounter Summary ---
Author Organization [employer] Address 75 [facility] 7t [place] [address] Care Team Providers Care Starch Mangle Tender Name Role Phone Sarah Mathews MD Primary Care Provider [phone] Sandra Francois MD Primary Care Provider [phone] Reason for Visit * Reason Comments Med Refill Encounter Details Date Type Department Care Team ([facility] st Contact Info) Description 02/09/2024 Refill [facility] MEDICINE [address] [place] [address] Sarah Mathews MD [address] [place] [address] Primary hypertension Social History Tobacco Use Types [...] 05/26/2025 9:15 AM EST Office Visit [facility] MED & PEDS 505 [place] [address] Sandra Francois MD 505 [place] [address] documented as of this encounter Visit Diagnoses Diagnosis Primary hypertension Unspecified essential hypertension documented in this encounter Care Teams Starch Mangle Tender Relationship Specialty Start Date End Date Sarah Mathews MD [address] [place] [address] PCP - General Family Medicine 04/15/12 04/20/25 Sandra Francois MD [address] [place] [address] PCP - General Family Medicine 04/21/25 Juan A 06/15/24 documented as of this encounter
--- OUTSIDE RECORDS SUMMARY | 2025-05-06 13:15 | XMS_ITS | Encounter Summary ---
Author Organization [employer] Address [address] [facility] 7t [place] [address] Care Team Providers Care Patient Scheduler Name Role Phone Sarah Mathews MD Primary Care Provider [phone] Sandra Francois MD Primary Care Provider [phone] Reason for Visit * Reason Onset Date Comments Hospital Follow-up 08/05/2024 Encounter Details Date Type Department Care Team ([facility] st Contact Info) Description 08/05/2024 Telephone [facility] MEDICINE [address] [place] [address] Sarah Mathews MD [address] [place] [address] Hospital Follow-up Social History Tobacco Use Types [...] Miscellaneous Notes * Telephone Encounter - Abel Rutledge - 08/05/2024 3:54 PM EST Tc from pt requesting a HDF appt. Hospital: [facility] Date of admission: 08/03/2024 Discharge date: 08/05/2024 Diagnosed: Respiratory Problems and UTI *Send message to [place] Clinical Care Coordinators documented in this encounter Plan of Treatment Upcoming Encounters Date Type Department Care Team (Late st Contact Info) Description 05/26/2025 9:15 AM EST Office Visit [facility] MED & PEDS [address] [place] [address] Sandra Francois MD [address] [place] [address] documented as of this encounter Visit Diagnoses Not on filedocumented in this encounter Additional Health Concerns Assessment Noted Time PHQ-9 Depression Total Score: 2 04/29/20 24 10:19 AM EST documented as of this encounter Care Teams Patient Scheduler Relationship Specialty Start Date End Date Sarah Mathews MD [address] [place] [address] PCP - General Family Medicine 04/15/12 04/20/25 Sandra Francois MD [address] [place] [address] PCP - General Family Medicine 04/21/25 Juan BENITES 06/15/24 documented as of this encounter
--- OUTSIDE RECORDS SUMMARY | 2025-05-06 13:15 | XMS_ITS | Encounter Summary ---
Author Organization [employer] Address [address] [facility] 7t [place] [address] Care Team Providers Care Malt Liquors Sales Supervisor Name Role Phone Sarah Mathews MD Primary Care Provider [phone] Sandra Francois MD Primary Care Provider [phone] Reason for Visit * Reason Onset Date Comments Nurse Triage 07/01/2024 Encounter Details Date Type Department Care Team ([facility] st Contact Info) Description 07/01/2024 Telephone [facility] MEDICINE [address] [place] [address] Sarah Mathews MD [address] [place] [address] Nurse Triage Social History Tobacco Use Types [...] speak for Pt. Pt was admitted to [facility] 06/11/24for dx of copd exacerbation and covid. Pt was discharged 06/13/24. Pt has been having low blood pressure even while in the hospital. Note, Pt has been undergoing chemotherapy prior to ED visit. Pt was seen by investment sales assistant yesterday and had a BP of 84/48. [...] this advice and disposition. ASK apt in [facility] today at [...] Description 05/26/2025 9:15 AM EST Office Visit [facility] MED & PEDS [address] [place] [address] Sandra Francois MD [address] [place] [address] documented as of this encounter Visit Diagnoses Not on filedocumented in this encounter Additional Health Concerns Assessment Noted Time PHQ-9 Depression Total Score: 2 04/29/20 24 10:19 AM EST documented as of this encounter Care Teams Malt Liquors Sales Supervisor Relationship Specialty Start Date End Date Sarah Mathews MD [address] [place] [address] PCP - General Family Medicine 04/15/12 04/20/25 Sandra Francois MD [address] [place] [address] PCP - General Family Medicine [facility] documented as of this encounter
--- OUTSIDE RECORDS SUMMARY | 2025-05-06 13:15 | XMS_ITS | Encounter Summary ---
Author Organization [employer] Address [address] [facility] 7t [place] [address] Care Team Providers Care Psychiatry Adult Physician Name Role Phone Sarah Mathews MD Primary Care Provider [phone] Sandra Francois MD Primary Care Provider [phone] Reason for Visit * Reason Onset Date Comments Results 10/09/2023 Encounter Details Date Type Department Care Team ([facility] Contact Info) Description 10/09/2023 Telephone [facility] CHC MED & PEDS [address] [place], [place] [id number] Sarah Mathews MD [address] [place] [address] Results Social History Tobacco Use Types Packs/Day [...] t he electric, gas, oil or water [employer] threatened to shut off services in your [...] for ordered:liver panel, BMP, lipid panel from [facility] and printed to [facility] for medical records and for providerto review. [...] as needed. RN will forward message to CHC to obtain lab results for provider. TC from pt daughter requesting call back regarding Results. Type of results: labs Date when done: 09/30/23 Facility: [facility] * Telephone Encounter - Melissa Kirby - 10/09/2023 12:35 PM EDT TC from pt daughter requesting call back regarding Results. Type of results: labs Date when done: 09/30/23 Facility: [facility] documented in this encounter Plan of Treatment Upcoming Encounters Date Type Department Care Team ([facility] st Contact Info) Description 05/26/2025 9:15 AM EST Office Visit [facility] MED & PEDS [address] [place] [address] Sandra Francois MD [address] [place] [address] documented as of this encounter Visit Diagnoses Not on filedocumented in this encounter Care Teams Psychiatry Adult Physician Relationship Specialty Start Date End Date Sarah Mathews MD [address] [place] [address] PCP - General Family Medicine 04/15/12 04/20/25 Sandra Francois MD [address] [place] [address] PCP - General Family Medicine 04/21/25 [facility] 06/15/24 documented as of this encounter
--- OUTSIDE RECORDS SUMMARY | 2025-05-06 13:15 | XMS_ITS | Patient Health Record ---
Author Organization [facility] Address [address] [place] [address] Care Team Providers Care Wood Tank Builder Name Role Phone ITALIA NEIL Primary Care [...] Risk Notes Problem Change in bowel habit (46018618) Change in bowel habits (R19.4) Active confirmed Problem Irritable bowel syndrome with diarrhea (895866156) Irritable bowel syndrome with diarrhea (K58.0) Active confirmed Problem Long-term current use of antiplatelet drug (062695882656185) Long-term use of aspirin therapy (Z79.82) Active confirmed Plan Of Treatment Future Test Test Name Order Date COLONOSCOPY 05/09/2017 Insurance Providers Payer Name Payer Address Payer Phone Subscriber Number Group Number Insured Name Patient Relationship to Insured Coverage Start Date Coverage End Date AARP MEDI COMPLETE (REFERRAL REQUIRED) [address] [address] [place] [address] [phone] [id number] ONEIL ROBBINS Self - patient is the insured Medicare of [facility] [address] [place] [phone] [id number] ONEIL ROBBINS Self - patient is the insured MEDICAID OF [facility] [address] [place] [phone] [id number] ONEIL ROBBINS Self - patient is the insured Medical (General) History Medical History History ICD Code hypercholesterolemia trigger finger tobacco abuse past hx of diverticulitis Denies SC,DM,CVA,Lung disease,renal dise ase Surgical History Surgery Date(Month/Year) lumpectomy, right breast was on tamoxife n for 7 years tonsillectomy appendectomy partial hysterectomy
--- OUTSIDE RECORDS SUMMARY | 2025-05-06 13:15 | XMS_ITS | Encounter Summary ---
Author Organization [email or web address] Address [address] [facility] 7t [place] [address] Care Team Providers Care Soft Work Wrapper Examiner Name Role Phone Sarah Mathews MD Primary Care Provider [phone] Sandra Francois MD Primary Care Provider [phone] Reason for Visit * Reason Onset Date Comments Med Refill 11/17/2024 Encounter Details Date Type Department Care Team ([facility] st Contact Info) Description 11/17/2024 Telephone [facility] MEDICINE [address] [place] [address] Sarah Mathews MD [address] [place] [address] Med Refill Social History Tobacco Use Types [...] 10 MG tablet To be sent to: [facility] documented in this encounter Plan of Treatment Upcoming Encounters Date Type Department Care Team (Late st Contact Info) Description 05/26/2025 9:15 AM EST Office Visit [facility] MED & PEDS [address] [place] [address] Sandra Francois MD [address] [place] [address] documented as of this encounter Visit Diagnoses Not on filedocumented in this encounter Additional Health Concerns Assessment Noted Time PHQ-9 Depression Total Score: 2 04/29/20 24 10:19 AM EST documented as of this encounter Care Teams Soft Work Wrapper Examiner Relationship Specialty Start Date End Date Sarah Mathews MD [address] [place] [address] PCP - General Family Medicine 04/15/12 04/20/25 Sandra Francois MD [address] [place] [address] PCP - General Family Medicine 04/21/25 [facility] 06/15/24 documented as of this encounter
== END 2025-05-06 10:46 | disposition home or self-care (01) ==
LOC: HO.US 10:45
PROVIDERS: PCP Family Medicine; Visit Provider Nurse Practitioner Family
DX: N39.0 Urinary tract infection, site not specified (principal)
CPT/HCPCS: 76770

== ENCOUNTER → 2025-05-06 10:48 | Outpatient (BNV) | payer MEDICARE, MEDICAID, SELFPAY | PROVIDERS: PCP Family Medicine; Visit Provider Specialist | DX: N39.0 Urinary tract infection, site not specified (principal) | CPT/HCPCS: 76770 ==

== ENCOUNTER 2025-05-13 09:41 | Outpatient (REF) | payer MEDICARE, MEDICAID, SELFPAY ==
--- OUTSIDE RECORDS SUMMARY | 2025-05-13 14:44 | XMS_ITS | Patient Health Record ---
Author Organization [facility] Address [address] [place] [address] Care Team Providers Care Automotive Electrical Helper Name Role Phone NEIL ECHAVARRIA Primary Care Provider [place] Jr Unavailable Reason For Referral No Information Medications Medication SIG (Take, Route, Frequency, Duration) Notes Start Date End Date Status Aspirin Adult Low Dose 81 MG Tablet Delayed Release 1 tablet Orally Once a day Active Ibuprofen 800 MG Tablet 1 tablet with fo od or milk as needed Orally Three times a day Active ProAir HFA 108 (90 Base) MCG/ACT Aerosol Solution INHALE TWO PUFFS FOUR TIMES DAILY NEEDED Inhalation; Duration: 25 Active Pravastatin Sodium 20 MG Tablet Oral; Duration: 90 Active Nicotine 21 MG/24HR Patch 24 Hour APPLY PATCH TO SKIN IN THE MORNING AND REMOVE AT NIGHT. DO NOT SMOKE WHILE USING PATCH Transdermal; Duration: 30 Active Colyte with Flavor Packs 240 GM Solution Reconstituted As directed Orally Over the specified time.; Duration: 1 day(s) Active Gemfibrozil 600 MG Tablet Oral; Duration: 30 Active Social History Tobacco Use: Social History Observation Description Date Details (start date - stop date) Current Smoker NA - NA Social History Drugs/Alcohol: Social Info Question Answer Notes Alcohol Screen Did you have a drink containing alcohol in the past year? No Points 0 Interpretation Negative Tobacco Use: Social Info Question Answer Notes Tobacco Use/Smoking Patient is a current smoker How often do you smoke cigarettes? every day Are you interested in quitting? 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 Section Notes: patient currently on nicotin e patches Problems Problem Type SNOMED Code ICD Code Onset Dates Problem Status W/U Status Risk Notes Problem Change in bowel habit (47459495) Change in bowel habits (R19.4) Active confirmed Problem Irritable bowel syndrome with diarrhea (828955180) Irritable bowel syndrome with diarrhea (K58.0) Active confirmed Problem Long-term current use of antiplatelet drug (688713747069619) Long-term use of aspirin therapy (Z79.82) Active confirmed Plan Of Treatment Future Test Test Name Order Date COLONOSCOPY 05/09/2017 Insurance Providers Payer Name Payer Address Payer Phone Subscriber Number Group Number Insured Name Patient Relationship to Insured Coverage Start Date Coverage End Date AARP [facility] COMPLETE (REFERRAL REQUIRED) [address] [address] [place] [address] [phone] [id number] ITZEL ANDREIAE Self - patient is the insured Medicare of [place] [address] [place] [address] [id number] ITZELANDREIA VIGILE Self - patient is the insured MEDICAID OF [facility] [address] [place] [phone] [id number] ITZELONEIL VIGIL Self - patient is the insured Medical (General) History Medical History History ICD Code hypercholesterolemia trigger finger tobacco abuse past hx of diverticulitis Denies [place],DM,CVA,Lung disease,renal dise ase Surgical History Surgery Date(Month/Year) lumpectomy, right breast was on tamoxife n for 7 years tonsillectomy appendectomy partial hysterectomy
== END 2025-05-13 09:42 | disposition home or self-care (01) ==
LOC: HO.LAB 09:41
PROVIDERS: PCP Student in an Organized Health Care Education/Training Program; Visit Provider Nurse Practitioner Family
DX: N28.1 Cyst of kidney, acquired (principal); N39.0 Urinary tract infection, site not specified; R31.29 Other microscopic hematuria; F17.200 Nicotine dependence, unspecified, uncomplicated
CPT/HCPCS: 81003; 88112; 99212

== ENCOUNTER 2025-05-13 09:41 | Outpatient (AMB) | payer MEDICARE, MEDICAID, SELFPAY ==
--- NOTE | 2025-05-13 09:42 | MHC.OFFVIS ---
Intake Visit Reasons: 2m/US/PVR Intake Note: Patient is present for 2M/US/PVR Urology Medication: Antibiotic Allergy: Blood Thinner: Todays PVR: Geochemical Laboratory Technician Required: No Allergies nitrofurantoin Allergy (Verified 05/13/25 10:20) Nausea Medication List - Last Reconciled 05/13/25 by MONALISA Phoenix-EDI albuterol sulfate 2.5 mg (3 mL) inhalation Q4H PRN albuterol sulfate 90 mcg/actuation (Ventolin HFA) 2 inhalations inhalation Q6H PRN alprazolam 0.25 mg PO BEDTIME PRN aspirin (Adult Low Dose Aspirin) 81 mg PO DAILY blood pressure test kit-large As directed cetirizine (All Day Allergy (cetirizine)) 10 mg PO DAILY estradiol 0.01%(0.1mg/gram) (Estrace) 1 g vaginal 3XW 90 days fluticasone furoate-vilanterol 100-25 mcg/dose (Breo Ellipta) 1 inh inhalation DAILY gemfibrozil 600 mg PO BID levothyroxine (Synthroid) 100 mcg PO DAILY levothyroxine 112 mcg PO DAILY ondansetron 8 mg PO Q8H pravastatin 20 mg PO BEDTIME HPI Comments Details: Janine is a pleasant 84-year-old female patient of Dr. Mathews who was accompanied by her daughter Kiara at today's office visit. 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 She presents to the office today for follow-up of her recurrent urinary tract infections. In discussion with the patient today she denies having had any UTIs and or UTI like symptoms since her last office visit here. Most recent retroperitoneal ultrasound results were reviewed with the patient and her daughter today. 05/18 bilateral kidneys are normal in size and echotexture. No collecting system dilatation of either kidney no hydronephrosis or renal calculi noted bilaterally. Left renal cortical Bosniak 1 cysts per radiology report. The urinary bladder is unremarkable. Postvoid bladder volume 0 mL. No acute findings per radiology report. In review of patient's chart it appears urine cultures are as follows: 03/16 Streptococcus viridans group, 09/14 Klebsiella pneumoniae, 2/ E coli, 6/ ecoli, 6/ E coli, 8/ E coli. In office urinalysis results reviewed with the patient today negative leukocytes negative nitrates. Trace microscopic hematuria. We discussed longstanding history of nicotine dependence with microscopic hematuria. We did discuss potential in office cystoscopy given recurrent urinary tract infections as well as microscopic hematuria noted on UA today. She currently denies any bothersome urinary issues or concerns. In office urinalysis results reviewed with the patient today. PVR 0 mL. We did discuss potential causes of recurrent urinary tract infections as well as further treatment options. She is not currently sexually active. She does have a history of IBS. We did discuss correlation of bowel issues and recurrent urinary tract infections. She denies urinary urgency, urinary frequency, incontinence, nocturia, hematuria, dysuria, foul smelling urine, changes to urinary stream, flank pain, fever, and or chills. She is happy with her current voiding parameters. She does report compliance with Estrace cream as prescribed. All questions were answered. She otherwise offers no other issues or concerns at this time. [facility] Medical History COPD (chronic obstructive pulmonary disease) Anemia Hypoxemia Smoker Diverticulosis Hypercholesteremia IBS (irritable bowel syndrome) HTN (hypertension) Surgical History Small cell carcinoma Hx of tonsillectomy Hx of appendectomy History of lumpectomy Lymphadenopathy, mediastinal Lung mass H/O colonoscopy Family History Sister Breast cancer Social History (Updated 04/07/25 @ 10:22 by APURVA Hitchcock) Household Members: None Housing: Apartment Do you presently have visiting nurse or other home services: No Alcohol intake: never Patient Tobacco Use Status: Current everyday Tobacco user Tobacco use type: Cigarette Cigarette Packs Per Day: 0.25 Cigarettes Per Day: 6 Years Smoked: 60 e-Cigarette/Vaping Use: Currently Using Second Hand Smoke Exposure: No Advance Directives Date on File: 08/04/24 service: No Current occupational status: retired Review of Systems Const All systems reviewed & are unremarkable except as noted in HPI and below Physical Exam Const General: cooperative, healthy appearing, comfortable, no acute distress, well developed, alert and awake Orientation/consciousness: patient oriented x3 Limitations: no limitations HEENT Head: Yes normal to inspection, Yes normocephalic and Yes atraumatic Ears: hearing grossly normal bilaterally Eyes General: appearance normal, both eyes and all related structures Neck Neck: Yes normal visual inspection and Yes trachea midline Chest Chest palpation & inspection: normal inspection of the chest Resp Effort & Inspection: normal respiratory effort and able to speak in complete sentences Cardio Rate: regular rate GI Inspection: Yes normal to inspection General: Yes no CVA tenderness Back/Spine/Pelvis Back: no CVA tenderness Skin General skin exam: no rashes or lesions noted Neuro General: patient oriented x3 Extrem General: Yes normal to inspection Psych Appearance: grossly normal and well kempt Mental Status: mental status grossly normal Speech and movement: Normal speech and movement present and Clear speech present Affect: normal affect Attitude: cooperative Thought process: Normal thought process present Thought content: Normal thought content present Insight: Fair insight present (Psych) Judgement: Fair judgement present (Psych) Results Reviewed Results Reviewed: Date of Service: 05/06/25 Procedure(s): US retroperitoneal comp Findings: Right kidney normal size and echotexture, 9.1 cm length. Left kidney normal size and echotexture, 8.3 cm length. No collecting system dilatation of either kidney. Normal color Doppler. Left renal cortical Bosniak 1 cyst measuring 3.5 x 3.5 x 3.2 cm Urinary bladder is unremarkable. Prevoid volume 245 mL. Postvoid volume 0 mL. Bilateral ureteral jets are visualized. IMPRESSION: 1. No acute findings Assessment & Plan Assessment & Plan (1) Recurrent UTI: Code(s): N39.0 - Urinary tract infection, site not specified Category: Medical (2) Renal cyst: Code(s): N28.1 - Cyst of kidney, acquired Category: Medical (3) Microscopic hematuria: Code(s): R31.29 - Other microscopic hematuria Category: Medical (4) Nicotine dependence: Code(s): F17.200 - Nicotine dependence, unspecified, uncomplicated Category: Medical Plan In office urinalysis results reviewed with the patient and her daughter today; as noted above; will send for urine cytology. PVR 0 mL Most recent retroperitoneal ultrasound results reviewed with the patient today; as noted above. We did discuss in office cystoscopy She currently denies any bothersome urinary issues or concerns. She reports be happy with current voiding parameters. Continue Estrace cream. We did discussed potential causes of microscopic hematuria as well as recurrent urinary tract infections; we discussed further treatment options and risks and benefits of these treatment options. All questions were answered. Follow-up in 3 months with PVR; or sooner with any issues, concerns, and or questions. Orders: Orders Urine Cytology Today N39.0 - Urinary tract infection, site not specified AMB Urinalysis Automated Today Z13.9 - Encounter for screening, unspecified Patient Instructions: The patient had an opportunity to ask questions regarding the treatment plan. All questions were answered. Physical exam, labs, and imaging were discussed and reviewed in detail. As well as risks, benefits, and discussion of treatment choices. No major barriers to understanding were identified. The patient expressed understanding and agreement with the above treatment plan. The patient was made aware they should contact our office by phone for worsening of their current condition, the appearance of new symptoms, or with any questions or concerns. Compliance is encouraged with any medications and follow up testing that is ordered. It is a privilege to be allowed the opportunity to participate in? your urological care.? Again, if you have any questions or concerns If you have any questions or concerns please do not hesitate to contact me. The office is [phone]. This note is constructed using voice recognition software. While every effort has been made to ensure accuracy hematology nurse errors may have been included. Yours sincerely, ANNIE Phoenix Coding Level of Care Code Est Pt Level 3 (59290) Complex EM visit Add On G2211 Diagnoses Recurrent UTI N39.0 Renal cyst N28.1 Microscopic hematuria R31.29 Nicotine dependence F17.200
== END 2025-05-13 10:12 | disposition home or self-care (01) ==
LOC: HO.HUSH 09:42
PROVIDERS: PCP Student in an Organized Health Care Education/Training Program; Visit Provider Nurse Practitioner Family
DX: N39.0 Urinary tract infection, site not specified (principal); N28.1 Cyst of kidney, acquired; R31.29 Other microscopic hematuria; F17.200 Nicotine dependence, unspecified, uncomplicated; Z13.9 Encounter for screening, unspecified
CPT/HCPCS: 99213; G2211

== ENCOUNTER 2025-06-16 13:35 | Outpatient (AMB) | payer MEDICARE, MEDICAID, SELFPAY ==
--- OUTSIDE RECORDS SUMMARY | 2025-06-14 10:30 | XMS_ITS | Encounter Summary ---
Author Organization [employer] Address [address] [facility] 7[address] [place] [address] Care Team Providers Care Assistant Elementary Teacher Name Role Phone Sandra Francosi MD Primary Care Provider [phone] Reason for Visit * Reason Comments Wound Infection Encounter Details Date Type Department Care Team ([facility] st Contact Info) Description 06/14/2025 10:30 AM EST Clinical Support [facility] MED & PEDS [address] [place] [address] Brianna Echols RN Wound cellulitis Social History Tobacco Use Types Packs/Day Years [...] as of this encounter Progress Notes * Brianna Echols RN - 06/14/2025 10:30 AM EST S: Janine Felder is a 84 year old female who presents today for a wound check with team nurses forthe skin tear on her right forearm. She presents today with her daughter Lamar. Janine denies pain with skin tear. Janine and Lamar state that sometimes gauze dressing does fall off and this morning dressing was removed after Janine reports catching arm on a corner and re opened skin tear. [place] state that today is the last day of the oral antibiotics for cellulitis of the right forearm. [place] that when she has been changing Janine's dressings, it has been very painful and wound re opens even with moistening gauze before removal. O: Right forearm wound partially scabbed over, 3 o'clock of wound bed dry with no eschar noted. 9 o'clock of wound has visible clotted blood where wound was re opened this morning. Surrounding skin warm with normal color for ethnicity. No drainage noted. + CMS to RUE. A: Right forearm skin tear healing complicated due to loss of skin elasticity and immunocompromisedstatus. P: Addendum to treatment to increase hydration to wound to allow for healing and less painful dressing changes: Cleans wound with normal saline or gentle water. Pat dry. Apply xeroform petroleum dressing over half of wound bed with no eschar, apply gauze pad over wound bed including xeroform. Applygauze wrap around arm and secure with tape. Change daily. Education provided to Lamar on how to apply dressing and education provided to use additional clothing to secure dressing such as sock sleeve or quyen wrap. Advised for Janine to use moisturizing scent free lotion such as CeraVe daily on intact skin to increase hydration and strength to prevent skin tears. Advised for Janine to wear long sleeves to prevent future skin tears. Education provided on changes with aging related to increase in skin tears. Follow up wound check and assessment in 1 week with team nurse. Supplies given to Janine for home wound care. Janine and Lamar verbalized understanding and agreement with plan. Brianna Echols RN documented in this encounter Plan of Treatment Upcoming Encounters Date Type Department Care Team (Late st Contact Info) Description 06/21/2025 9:00 AM EST Clinical Support [facility]ED[facility] [address] [place] [address] 08/04/2025 9:45 AM EST Immunization [facility]ED[facility] [address] [place] [address] documented as of this encounter Visit Diagnoses Diagnosis Wound cellulitis documented in this encounter Additional Health Concerns Assessment Noted Time PHQ-9 Depression Total Score: 2 03/08/20 25 11:06 AM EDT documented as of this encounter Care Teams Assistant Elementary Teacher Relationship Specialty Start Date End Date Sandra Francois MD [address] [place] [address] PCP - General Family Medicine 04/21/25 Yosef Wolff MD Consulting Physician Hematology and Oncology 05/26/25 Shiraz Staton MD Salesperson Toy [employer] Accessories Cardiology 05/26/25 Denise SHELDON- Nurse Practitioner Urology 05/26/25 Janet Soliz MD Consulting Physician Pulmonary Disease 05/26/25 documented as of this encounter
--- OUTSIDE RECORDS SUMMARY | 2025-06-16 13:37 | XMS_ITS | Encounter Summary ---
Author Organization [employer] Address 75 [facility] 7t [place] [address] Care Team Providers Care Adjunct Instructor Chemistry Name Role Phone Sarah Mathews MD Primary Care Provider Sandra Francois MD Primary Care Provider [phone] Reason for Visit * Reason Onset Date Comments Medication Question 07/29/2024 Encounter Details Date Type Department Care Team ([facility] Contact Info) Description 07/29/2024 Telephone C [facility]S [address] [place], [place] [phone] Sarah Mathews MD 505 [place] [address] Medication Question Social History Tobacco Use Types [...] give Pt 10 mg. Contact pt at [phone] * Telephone Encounter - Abel Rutledge - 07/30/2024 4:08 PM EST Tc from Pt daughter requesting that 10 mg furosemide (Lasix) could be sent to [id number] - [place], [place] - [address] [place] [address] AT SEC OF [facility]. Pt daughter is also waiting for call to schedule and endogram for pt. Daughter Contact: [phone] * Telephone Encounter - Sarah Mathews MD - 07/29/2024 6:33 PM EST Please send verbal order of 10mg.[facility] does not let me send 10mg * Telephone Encounter - Melissa Kirby - 07/29/2024 12:15 PM EST Tc from pt daughter Lamar calling to inform went to orange picker machine operator medication furosemide (Lasix) 20 MG tablet but was advised by a pharmacist to contact pcp office to switch script over to 10 mg instead of 20 mg so that its easier to spilt medication in half. Any further questions please contact phone # [phone] documented in this encounter Plan of Treatment Upcoming Encounters Date Type Department Care Team ([facility] st Contact Info) Description 06/21/2025 9:00 AM EST Clinical Support [facility] MED & PEDS [address] [place] [address] 08/04/2025 9:45 AM EST Immunization [facility] MED & PEDS [address] [place] [address] documented as of this encounter Visit Diagnoses Not on filedocumented in this encounter Additional Health Concerns Assessment Noted Time PHQ-9 Depression Total Score: 2 04/29/20 24 10:19 AM EST documented as of this encounter Care Teams Adjunct Instructor Chemistry Relationship Specialty Start Date End Date Sarah Mathews MD [address] [place] [address] PCP - General Family Medicine 04/15/12 04/20/25 Sandra Francois MD [address] [place] [address] PCP - General Family Medicine 04/21/25 [facility] 06/15/24 05/25/25 Yosef Wolff MD Consulting Physician Hematology and Oncology 05/26/25 Shiraz Staton MD Gym Instructor Cardiology 05/26/25 Denise Lewis [facility] Nurse Practitioner Urology 05/26/25 Janet Soliz MD Consulting Physician Pulmonary Disease 05/26/25 documented as of this encounter
--- OUTSIDE RECORDS SUMMARY | 2025-06-16 13:38 | XMS_ITS | Encounter Summary ---
Author Organization [employer] Address 75 [facility] 7t [place] [address] Care Team Providers Care Whitesmith Name Role Phone Sarah Mathews MD Primary Care Provider [phone] Sandra Francois MD Primary Care Provider [phone] Reason for Visit * Reason Comments Med Refill Encounter Details Date Type Department Care Team ([facility] st Contact Info) Description 02/09/2024 Refill [facility] MEDICINE [address] [place] [address] Sarah Mathews MD [address] [place] [address] Primary hypertension Social History Tobacco Use Types [...] Description 06/21/2025 9:00 AM EST Clinical Support [facility] MED & PEDS 505 [place] [address] 08/04/2025 9:45 AM EST Immunization [facility] MED & PEDS 505 [place] [address] documented as of this encounter Visit Diagnoses Diagnosis Primary hypertension Unspecified essential hypertension documented in this encounter Care Teams Whitesmith Relationship Specialty Start Date End Date Sarah Mathews MD [address] [place] [address] PCP - General Family Medicine 04/15/12 04/20/25 Sandra Francois MD 505 [place] [address] PCP - General Family Medicine 04/21/25 [facility] 06/15/24 05/25/25 Yosef Wolff MD Consulting Physician Hematology and Oncology 05/26/25 Shiraz Staton MD Flask Cleaner Cardiology 05/26/25 [facility] Nurse Practitioner Urology 05/26/25 Janet Soliz MD Consulting Physician Pulmonary Disease 05/26/25 documented as of this encounter
--- OUTSIDE RECORDS SUMMARY | 2025-06-16 13:38 | XMS_ITS | Encounter Summary ---
Author Organization [employer] Address 75 [facility] 7t [place] [address] Care Team Providers Care Jet Engine Mechanic Name Role Phone Sarah Mathews MD Primary Care Provider Sandra Francois MD Primary Care Provider [phone] Reason for Visit * Reason Onset Date Comments FYI 09/16/2023 Encounter Details Date Type Department Care Team ([facility] Contact Info) Description 09/16/[address] [facility] MED & PEDS [address] [place], [place] [phone] Sarah Mathews MD 505 [place], [place] [phone] FYI Social History Tobacco Use Types Packs/Day [...] MG tablet. Any questions, contact [place] at [phone] documented in this encounter Plan of Treatment Upcoming Encounters Date Type Department Care Team (Late st Contact Info) Description 06/21/2025 9:00 AM EST Clinical Support [facility] MED & PEDS 505 [place] [address] 08/04/2025 9:45 AM EST Immunization [facility] MED & PEDS 505 [place] [address] documented as of this encounter Visit Diagnoses Not on filedocumented in this encounter Care Teams Jet Engine Mechanic Relationship Specialty Start Date End Date Sarah Mathews MD [address] [place] [address] FERNANDO [place] [address] PCP - General Family Medicine 04/15/12 04/20/25 Sandra Francois MD [address] [place] [address] PCP - General Family Medicine 04/21/25 Juan [facility] 06/15/24 05/25/25 Yosef Wolff MD Consulting Physician Hematology and Oncology 05/26/25 Shiraz Staton MD Pineapple Plantation Manager Cardiology 05/26/25 Denise Lewis [facility]- Nurse Practitioner Urology 05/26/25 Janet Soliz MD Consulting Physician Pulmonary Disease 05/26/25 documented as of this encounter
--- OUTSIDE RECORDS SUMMARY | 2025-06-16 13:38 | XMS_ITS | Encounter Summary ---
Author Organization [email or web address] Address [address] [facility] 7t [place] [address] Care Team Providers Care Keyliner Name Role Phone Sarah Mathews MD Primary Care Provider [phone] Sandra Francois MD Primary Care Provider [phone] Reason for Visit * Reason Onset Date Comments Nurse Triage 07/01/2024 Encounter Details Date Type Department Care Team ([facility] st Contact Info) Description 07/01/2024 Telephone [facility] MEDICINE [address] [place] [address] Sarah Mathews MD [address] [place] [address] Nurse Triage Social History Tobacco Use Types [...] speak for Pt. Pt was admitted to [facility] 06/11/24for dx of copd exacerbation and covid. Pt was discharged 06/13/24. Pt has been having low blood pressure even while in the hospital. Note, Pt has been undergoing chemotherapy prior to ED visit. Pt was seen by field cane scaler helper yesterday and had a BP of [...] this advice and disposition. ASK apt in [facility]C today at 240pm. Insurance is verified [...] Description 06/21/2025 9:00 AM EST Clinical Support [facility] MED & PEDS [address] [place] [address] 08/04/2025 9:45 AM EST Immunization [facility] MED & PEDS [address] [place] [address] documented as of this encounter Visit Diagnoses Not on filedocumented in this encounter Additional Health Concerns Assessment Noted Time PHQ-9 Depression Total Score: 2 04/29/20 24 10:19 AM EST documented as of this encounter Care Teams Keyliner Relationship Specialty Start Date End Date Sarah Mathews MD [address] [place] [address] PCP - General Family Medicine 04/15/12 04/20/25 Sandra Francois MD 505 [place] [address] PCP - General Family Medicine 04/21/25 [facility] 06/15/24 05/25/25 Yosef Wolff MD Consulting Physician Hematology and Oncology 05/26/25 Shiraz Staton MD Radiologic Technology Teacher Cardiology 05/26/25 Denise Lewis [facility] Nurse Practitioner Urology 05/26/25 Janet Soliz MD Consulting Physician Pulmonary Disease 05/26/25 documented as of this encounter
--- OUTSIDE RECORDS SUMMARY | 2025-06-16 13:38 | XMS_ITS | Clinical Summary ---
Author Organization [facility] Address [address] [facility] [address] [place] [address] Phone Care Team Providers Care Drywall Professional Name Role Phone Sarah Mathews MD Primary Care Provider [phone] Yosef Wolff MD Unavailable [phone] Allergies No known active allergies Medications albuterol [...] you interested in more education? Not on garht e 04/10/2023 Are you concerned about learning? [...] Devices Not on file Insurance MEDICARE REPLACEMENT [facility] FULL MEDICARE PART A & [facility] AAR MEDICARE REPLACEMENT [facility] FULL MEDICARE PART A & [facility] [place] [address] [address] MEDICARE REPLACEMENT [facility] FULL MEDICARE PART A & B [facility] QMB [facility] [place] [id number] FULL MEDICARE PART A & B [facility] AARP MEDICARE REPLACEMENT [facility] FULL MEDICARE PART A & B Member Subscriber Plan / Payer (Ef fective 2006-Present) Name:Janine Felder Member ID:[id number] Relation to Subscriber:Self Name:Janine Felder Subscriber ID:[id number] Payer ID:[id number] Group ID:Not on file Type:Medicare Address: [employer] [facility] Safe Case [facility] [address] [place] [address] [facility] MEDICARE REPLACEMENT [facility] FULL MEDICARE PART A & B [facility] Care Teams Drywall Professional Relationship Specialty Start Date End Date Sarah Mathews MD [address] [place] [address] PCP - General Family Medicine 04/09/23 Yosef Wolff MD [address] [place] [address] Primary Oncologist 07/08/23 Additional Source Comments The information contained in this document represents components of the legal health record. It is not the complete legal health record.[facility]
--- OUTSIDE RECORDS SUMMARY | 2025-06-16 13:38 | XMS_ITS | Encounter Summary ---
Author Organization [employer] Address [address] [facility] 7t [place] [address] Care Team Providers Care Disintegrator Operator Name Role Phone Sarah Mathews MD Primary Care Provider [phone] Sandra Francois MD Primary Care Provider Reason for Visit * Reason Onset Date Comments FYI 07/20/2024 Encounter Details Date Type Department Care Team ([facility] Contact Info) Description 07/20/2024 Telephone C [facility] MED [facility]EDS [address] [place], [place] [phone] Sarah Mathews MD [address] [place] [address] FYI Social History Tobacco Use Types Packs/Day [...] - 07/20/2024 9:38 AM EST Tc rach [facility] with [facility] calling to inform pt missed today visit next visit is 07/23/24. documented in this encounter Plan of Treatment Upcoming Encounters Date Type Department Care Team ([facility] st Contact Info) Description 06/21/2025 9:00 AM EST Clinical Support [facility] MED & PEDS [address] [place] [address] 08/04/2025 9:45 AM EST Immunization [facility] MED & PEDS [address] [place] [address] documented as of this encounter Visit Diagnoses Not on filedocumented in this encounter Additional Health Concerns Assessment Noted Time PHQ-9 Depression Total Score: 2 04/29/20 24 10:19 AM EST documented as of this encounter Care Teams Disintegrator Operator Relationship Specialty Start Date End Date Sarah Mathews MD [address] [place] [address] PCP - General Family Medicine 04/15/12 04/20/25 Sandra Francois MD [address] [place] [address] PCP - General Family Medicine 04/21/25 Juan [facility] 06/15/24 05/25/25 Yosef Wolff MD Consulting Physician Hematology and Oncology 05/26/25 Shiraz Staton MD Oil Well Service Unit Operator Cardiology 05/26/25 Denise Lewis [facility] Nurse Practitioner Urology 05/26/25 Janet Soliz MD Consulting Physician Pulmonary Disease 05/26/25 documented as of this encounter
--- OUTSIDE RECORDS SUMMARY | 2025-06-16 13:38 | XMS_ITS | Encounter Summary ---
Author Organization [employer] Address [address] [facility] 7t [place] [address] Care Team Providers Care Ventilating Equipment Installer Name Role Phone Sarah Mathews MD Primary Care Provider [phone] Sandra Francois MD Primary Care Provider [phone] Reason for Visit * Reason Onset Date Comments Results 10/09/2023 Encounter Details Date Type Department Care Team ([facility] Contact Info) Description 10/09/2023 Telephone [facility] MED & PEDS [address] [place], [place] [phone] Sarah Mathews MD [address] [place] [address] Results Social History Tobacco Use Types Packs/Day [...] t he electric, gas, oil or water [employer] threatened to shut off services in your [...] for ordered:liver panel, BMP, lipid panel from [facility] and printed to [facility] for medical records and for [...] results: labs Date when done: 09/30/23 Facility: [facility] * Telephone Encounter - Melissa Kirby - 10/09/2023 12:35 PM EDT TC from pt daughter requesting call back regarding Results. Type of results: labs Date when done: 09/30/23 Facility: [facility] documented in this encounter Plan of Treatment Upcoming Encounters Date Type Department Care Team (Late st Contact Info) Description 06/21/2025 9:00 AM EST Clinical Support [facility] MED & PEDS [address] [place] [address] 08/04/2025 9:45 AM EST Immunization [facility] MED & PEDS [address] [place] [address] documented as of this encounter Visit Diagnoses Not on filedocumented in this encounter Care Teams Ventilating Equipment Installer Relationship Specialty Start Date End Date Sarah Mathews MD [address] [place] [address] PCP - General Family Medicine 04/15/12 04/20/25 Sandra Francois MD [address] [place] [address] PCP - General Family Medicine 04/21/25 [facility] 06/15/24 05/25/25 Yosef Wolff MD Consulting Physician Hematology and Oncology 05/26/25 Shiraz Staton MD Heating Engineer Cardiology 05/26/25 Den[facility] Nurse Practitioner Urology 05/26/25 Janet Soliz MD Consulting Physician Pulmonary Disease 05/26/25 documented as of this encounter
--- OUTSIDE RECORDS SUMMARY | 2025-06-16 13:38 | XMS_ITS | Clinical Summary ---
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
--- OUTSIDE RECORDS SUMMARY | 2025-06-16 13:38 | XMS_ITS | Encounter Summary ---
Author Organization [employer] Address [address] [facility] 7t [place] [address] Care Team Providers Care Probation Officer Name Role Phone Sarah Mathews MD Primary Care Provider [phone] Sandar Francois MD Primary Care Provider [phone] Reason for Visit * Reason Onset Date Comments Med Refill 11/17/2024 Encounter Details Date Type Department Care Team ([facility] st Contact Info) Description 11/17/2024 Telephone [facility] MEDICINE [address] [place] [address] Sarah Mathews MD [address] [place] [address] Med Refill Social History Tobacco Use Types [...] 10 MG tablet To be sent to: [facility] documented in this encounter Plan of Treatment Upcoming Encounters Date Type Department Care Team (Late st Contact Info) Description 06/21/2025 9:00 AM EST Clinical Support [facility] MED & PEDS [address] [place] [address] 08/04/2025 9:45 AM EST Immunization [facility] MED & PEDS [address] [place] [address] documented as of this encounter Visit Diagnoses Not on filedocumented in this encounter Additional Health Concerns Assessment Noted Time PHQ-9 Depression Total Score: 2 04/29/20 24 10:19 AM EST documented as of this encounter Care Teams Probation Officer Relationship Specialty Start Date End Date Sarah Mathews MD [address] [place] [address] PCP - General Family Medicine 04/15/12 04/20/25 Sandra Francois MD [address] [place] [address] PCP - General Family Medicine 04/21/25 [facility] 06/15/24 05/25/25 Yosef Wolff MD Consulting Physician Hematology and Oncology 05/26/25 Shiraz Staton MD Advertising Clerk Cardiology 05/26/25 Denise Lewis [facility] Nurse Practitioner Urology 05/26/25 Janet Soliz MD Consulting Physician Pulmonary Disease 05/26/25 documented as of this encounter
--- OUTSIDE RECORDS SUMMARY | 2025-06-16 13:38 | XMS_ITS | Encounter Summary ---
Author Organization [email or web address] Address [address] [facility] 7t [place] [address] Care Team Providers Care Ditching Machine Engineer Name Role Phone Sarah Mathews MD Primary Care Provider [phone] Sandra Francois MD Primary Care Provider [phone] Reason for Visit * Reason Onset Date Comments Hospital Follow-up 08/05/2024 Encounter Details Date Type Department Care Team ([facility] st Contact Info) Description 08/05/2024 Telephone [facility] MEDICINE [address] [place] [address] Sarah Mathews MD [address] [place] [address] Hospital Follow-up Social History Tobacco Use Types [...] from pt requesting a HDF appt. Hospital: [facility] Date of admission: 08/03/2024 Discharge date: 08/05/2024 Diagnosed: Respiratory Problems and UTI *Send message to [place] Clinical Care Coordinators documented in this encounter Plan of Treatment Upcoming Encounters Date Type Department Care Team ([facility] st Contact Info) Description 06/21/2025 9:00 AM EST Clinical Support [facility] MED & PEDS [address] [place] [address] 08/04/2025 9:45 AM EST Immunization [facility] MED & PEDS 505 [place] [address] documented as of this encounter Visit Diagnoses Not on filedocumented in this encounter Additional Health Concerns Assessment Noted Time PHQ-9 Depression Total Score: 2 04/29/20 24 10:19 AM EST documented as of this encounter Care Teams Ditching Machine Engineer Relationship Specialty Start Date End Date Sarah Mathews MD [address] [place] [address] PCP - General Family Medicine 04/15/12 04/20/25 Sandra Francois MD [address] [place] [address] PCP - General Family Medicine 04/21/25 Juan [facility] 06/15/24 05/25/25 Yosef Wolff MD Consulting Physician Hematology and Oncology 05/26/25 Shiraz Staton MD Offc Spec Cardiology 05/26/25 Denise Lewis [facility] Nurse Practitioner Urology 05/26/25 Janet Soliz MD Consulting Physician Pulmonary Disease 05/26/25 documented as of this encounter
--- OUTSIDE RECORDS SUMMARY | 2025-06-16 13:38 | XMS_ITS | Encounter Summary ---
Author Organization [employer] Address [address] [facility] 7 [place] [address] Care Team Providers Care Office Specialist Name Role Phone Sarah Mathews MD Primary Care Provider [phone] Sandra Francois MD Primary Care Provider [phone] Reason for Referral * Consultation (Routine) - Closed Specialty Diagnoses / Procedures Referred By Contac t Referred To Contact Pharmacy Diagnoses Urinary tract infection without hematuria, site unspecified Tash Walker, PharmD [address] [place] [address] Phone: tel: fax: Referral ID Status Reason Start Date Expiration Date V isits Requested Visits Authorized [id number] Closed Continuity of Care 09/12/2023 09/11/2024 1 1 Encounter Details Date Type Department Care Team (Late st Contact Info) Description 09/12/2023 Orders Only [facility] MEDICINE [address] [place], [place] [phone] Tash Walker, PharmD [address] [place], [place] [phone] Urinary tract infection without hematuria, site unspecified [...] the past 12 months, has t he [employer], gas, oil or water company threatened to [...] 9:00 AM EST Clinical Support [facility] MED & PEDS [address] [place] [address] 08/04/2025 9:45 AM EST Immunization [facility] MED & PEDS [address] [place] [address] Scheduled Referrals Name Type Priority Associated Diagnoses Orde r Schedule Referral to Pharmacy MTM Outpatient Referral Routine Urinary tract infection without hematuria, site unspecified Ordered: 09/12/2023 documented as of this encounter Visit Diagnoses Diagnosis Urinary tract infection without hematuria, site unspecified- Primary documented in this encounter Care Teams Office Specialist Relationship Specialty Start Date End Date Sarah Mathews MD [address] [place] [address] PCP - General Family Medicine 04/15/12 04/20/25 Sandra Francois MD [address] [place] [address] PCP - General Family Medicine 04/21/25 [place] [facility] 06/15/24 05/25/25 Yosef Wolff MD Consulting Physician Hematology and Oncology 05/26/25 Shiraz Staton MD Edi Analyst Cardiology 05/26/25 Denise Lewis [facility] Nurse Practitioner Urology 05/26/25 Janet Soliz MD Consulting Physician Pulmonary Disease 05/26/25 documented as of this encounter
--- OUTSIDE RECORDS SUMMARY | 2025-06-16 13:38 | XMS_ITS | Patient Health Record ---
Author Organization 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 Section Notes: patient currently on nicotin e patches Problems Problem Type SNOMED Code ICD Code Onset Dates Problem Status W/U Status Risk Notes Problem Change in bowel habit (45681660) Change in bowel habits (R19.4) Active confirmed Problem Irritable bowel syndrome with diarrhea (124154964) Irritable bowel syndrome with diarrhea (K58.0) Active confirmed Problem Long-term current use of antiplatelet drug (774904086854190) Long-term use of aspirin therapy (Z79.82) Active confirmed Plan Of Treatment Future Test Test Name Order Date COLONOSCOPY 05/09/2017 Insurance Providers Payer Name Payer Address Payer Phone Subscriber Number Group Number Insured Name Patient Relationship to Insured Coverage Start Date Coverage End Date AARP [facility] COMPLETE (REFERRAL REQUIRED) [address] [address] [place] [address] [phone] [id number] ITZEL ANDREIAE Self - patient is the insured Medicare of [place] SECONDARY [address] [place] [address] [id number] ITZELANDREIA VIGILE Self - patient is the insured MEDICAID OF [facility] [address] [place] [address] [phone] [id number] ITZELONEIL VIGIL Self - patient is the insured Medical (General) History Medical History History ICD Code hypercholesterolemia trigger finger tobacco abuse past hx of diverticulitis Denies TX,DM,CVA,Lung disease,renal dise ase Surgical History Surgery Date(Month/Year) lumpectomy, right breast was on tamoxife n for 7 years tonsillectomy appendectomy partial hysterectomy
--- OUTSIDE RECORDS SUMMARY | 2025-06-16 13:38 | XMS_ITS | Clinical Summary ---
Author Organization [employer] Address [address] [facility] 7t [place] [address] Care Team Providers Care Hospitality House Supervisor Name Role Phone Sandra Francois MD Primary Care Provider [phone] Allergies No known active allergies Medications ALPRAZolam [...] inhaler 1 Device 1 08/13/19 25 Active cetirizine (ZyrTEC) 10 MG tablet Take 1 tablet (10 mg) by mouth Once per day. 30 tablet 11 12/31/19 25 026 Active silver sulfADIAZINE (Silvadene) 1 % cream Apply topically 2 times daily. 50 g 12/31/19 25 026 Active levothyroxine (Synthroid, Levoxyl) 112 MCG tablet Take 1 tablet by mouth Once per day. 05/24/20 25 Active aspirin 81 MG EC tablet Take 81 mg by mouth Once per day. Active Fluticasone Furoate-Vilante rol (Breo Ellipta) 100-25 MCG/ACT aerosol powder Inhale 100 mcg Once per day. 60 each 3 05/26/20 25 Active gemfibrozil (Lopid) 600 MG tabletIndicatio ns:Primary hypertension Take 1 tablet (600 mg) by mouth 2 times daily. 180 tablet 3 05/26/20 25 026 Active pravastatin (Pravachol) 20 MG tablet TAKE 1 TABLET BY MOUTH EVERY NIGHT AT BEDTIME 90 tablet 1 05/26/20 25 Active gemfibrozil (Lopid) 600 MG tabletIndicatio ns:Primary hypertension Take 1 tablet (600 mg) by mouth 2 times daily. 180 tablet 3 09/29/19 25 025 Discontinued(Re order (will not trigger notification to Pharmacy)) pravastatin (Pravachol) 20 MG tablet TAKE 1 TABLET BY MOUTH EVERY NIGHT AT BEDTIME 90 tablet 1 12/31/19 25 025 Discontinued(Re order (will not trigger notification to Pharmacy)) Fluticasone Furoate-Vilante rol (Breo Ellipta) 100-25 MCG/ACT aerosol powder Inhale 100 mcg Once per day. 60 each 3 12/31/19 25 025 Discontinued(Re order (will not trigger notification to Pharmacy)) bacitracin-poly myxin b (Polysporin) ointment Apply topically 2 times daily. 15 g 12/31/19 25 025 Discontinued(Th erapy completed) levothyroxine (Synthroid, Levoxyl) 125 MCG tablet Take 1 tablet (125 mcg) by mouth before breakfast. 30 tablet 11 12/31/19 25 025 Discontinued estradiol (Estrace) 0.1 MG/GM vaginal cream USE 1 GRAM VAGINALLY 3 TIMES A WEEK 02/26/20 25 025 Discontinued(Th erapy completed) zoster vaccine-recombi nant adjuvanted (Shingrix) 50 MCG/0.5ML vaccineIndicati ons:Primary hypertension Inject 0.5 mL (50 mcg) into the muscle 1 (one) time for 1 dose. 0.5 mL 5 10:41 AM EST 05/26/20 25 025 cephalexin (Keflex) 500 MG capsule Take 1 capsule (500 mg) by mouth 2 times daily for 7 days. 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 Mixed simple and mucopurulent chronic bronchitis (CMS/HCC) 05/26/2025 Atrophic vaginitis 05/26/2025 Acquired hypothyroidism 05/26/2025 Anxiety 05/26/2025 Mitral valve stenosis 05/26/2025 Requires supplemental oxygen 05/26/2025 Overview (05/26/2025): Uses at night 2 L and as needed Vitamin B12 deficiency 05/26/2025 Overview (05/26/2025): Follow with heme/onc in [facility], received bimontly Idiopathic hypotension 07/01/2024 Assessment & Plan (07/02/2024 9:12 AM EST): Low BP sp illness that persisted. At this moment will discontinue hydrochlorothiazide and f.up in 1 week with nursing. Cough 07/01/2024 Assessment & Plan (07/02/2024 9:10 AM EST): Normal lung exam. Hemodynamically stable. At this moment will send expectorant. RTC if symptoms worsen/ don't improve Syncope 09/16/2023 Smoker 09/16/2023 Overview (05/26/2025): Past history of smoking for 45 pack years. Quit in 2022 Currently smoking about 2-3 cigarettes a day. 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 Acquired trigger finger 10/16/2012 Hypercholesterolemia 10/16/2012 Tobacco dependence syndrome 10/16/2012 Encounters Date Type Department Care Team Description 06/14/2025 10:30 AM EST Clinical Support [facility] PED[facility] [address] [place] [address] Brianna Echols RN Wound cellulitis 06/14/2025 Travel 06/07/2025 2:45 PM EST Office Visit [facility] [address] [place] [address] Behzad Simental MD 06/07/2025 Travel 06/07/2025 Telephone [facility] MED[facility] [address] [place] [address] Sandra Francois MD Nurse Triage 05/26/2025 9:15 AM EST Office Visit [facility] [address] [place] [address] Sandra Francois MD Mixed simple and mucopurulent chronic bronchitis (CMS/HCC) (HCC) (Primary Dx); Atrophic vaginitis; Acquired hypothyroidism; Anxiety; Primary hypertension; Mitral valve stenosis, unspecified etiology; Requires supplemental oxygen; Vitamin B12 deficiency 05/26/2025 Travel 05/25/2025 Telephone [facility] MED & PEDS [address] [place] [address] Sommer Em [place] chart prep 05/13/2025 Orders Only GENERIC EXTERNAL DATA DEPARTMENT Provider, Generic External Data 05/13/2025 Patient Outreach [facility] [address] [place] [address] Sandra Francois MD Pre-visit Planning (SDOH Screening negative and Tobacco screening negative) 05/06/2025 Orders Only [facility] External Provider, [facility] from Last 3 Months Immunizations Immunization Administration Dates Next Due Influenza Quadrivalent Adjuvanted 06/06/2022, Influenza injectable quadriv alent IIV4 with preservative 03/08/2015 Influenza, High Dose Seasona l, Preservative Free 03/11/2025,04/29/2024,02/01/2017,02/03 Influenza, IIV3, injectable 04/03/2012 Influenza, Split (incl. frederick fied surface antigen) 03/06/2013 Influenza, trivalent, adjuvanted 04/27/2018 Pfizer Covid-19 Vaccine 12+ 03/23/2021,,08/06/2020 Pneumococcal Conjugate PCV 20 09/02/2023 Pneumococcal Polysaccharide PPSV23 02/04/2016 RSV Adjuvant 03/11/2025 TD (adult), 2 Lf tetanus tox oid, preservative free, adsorbed 02/21/2007 Tdap 12/21/2022 Zoster, Recombinant 05/26/2025 Zoster, live 06/26/2015 Social History Tobacco Use [...] Reading Time Taken Comments Blood Pressure 124/70 06/07/2025 3:04 PM EST Pulse 84 06/07/2025 3:04 PM EST Temperature 36.6 C (97.8 F) 06/07/2025 3:04 PM EST Respiratory Rate 12 06/07/2025 3:04 PM EST Oxygen Saturation 95% 06/07/2025 3:04 PM EST Inhaled Oxygen Concentration - - Weight 60.3 kg (133 lb) 06/07/2025 3:04 PM EST Height 165.1 cm (5' 5 ) 06/07/2025 3:04 PM EST Body Mass Index 22.13 06/07/2025 3:04 PM EST Plan of Treatment Upcoming Encounters Date Type Department Care Team (Late st Contact Info) Description 06/21/2025 9:00 AM EST Clinical Support [facility] MED [facility]ED[facility] [address] [facility] [place] [address] 08/04/2025 9:45 AM EST Immunization [facility] [address] [facility] [place] [address] Health Maintenance Due Date Last Done Comments Zoster Vaccines (3 of 3) 07/21/2025 05/26/2025, 08/2015 Alcohol/Substance Use Screening 07/29/2025 07/29/2024 COVID-19 Vaccine ( season) 2025 03/11/2025, 06/06/2022, 03/23/2021, Additional history exists Depression Screening 03/08/2026 03/08/2025, 03/08/20 SDOH Screening 05/13/2026 05/13/2025 Tobacco Screening 05/26/2026 05/26/2025 Lipid Panel 05/09/2029 05/09/2024, 04/0 01/2024, 12/21/2022, [...] Procedure Name Priority Date/Time Associated Diagnosis Comments CYTOPATH-CELL ENHANCED Routine 9:45 AM EST US RETROPERITONEAL COMPLETE Routine 05/07/2025 11:45 AM EST LIPID PANEL, STANDARD Routine 05/09/2024 8:09 AM EST Primary hypertension Hypothyroidism, unspecified type from Last 3 Months or Most Recently Relevant to Health Maintenance Results * Cytopath-cell enhanced (05/13/2025 9:45 AM EST) 05/13/2025 9:45 AM EST 05/14/2025 12:50 PM EST [facility] - 05/17/2025 4:00 PM EST ----- ------- Name: Janine Felder Age/Sex: 84/F : 1940 Unit#: [id number] Attend Dr: Denise Lewis [facility] Re05/13/25 Status: DEP REF Location: .LAB Disch: ----- ------- SPEC : [id number] RECD: 05/14/25 STATUS: KENYATTA MARTINEZ NUM: [id number] MARCOS: 05/13/[address] [facility] [address]: Denise Lewis [facility] ENTERED: 05/14/25-5196 SP TYPE: Cytology OTHR DR: Sarah Mathews MD ORDERED: Cyto-enhanced Diagnosis Urine: Negative for high-grade urothelial carcinoma. Comment: Examination of a monolayer preparation slide shows scattered benign urothelial cells with focal reactive changes, scattered benign squamous cells, many acute inflammatory cells, and occasional red blood cells. Clinical History Urinary tract infection Material Received Urine Gross Description Received is 35 cc of slightly cloudy light yellow fluid from which a ThinPrep slide is prepared. IHC S/NG Disclaimer NOTE: Unless otherwise stated, all tissue is formalin-fixed and paraffin-embedded. Some or all of the immunohistochemical tests reported herein may have been developed and their performance characteristics determined by [facility]. They have not been cleared or approved by the U.S. Food and Drug Administration (FDA). However, the FDA has determined that such clearance or approval is not necessary. This laboratory is certified under the Clinical Laboratory Improvement Amendments of 1988 (CLIA) as qualified to perform high complexity clinical laboratory testing. Copies To: Denise Lewis [facility] [address] [place] [address] [address]. [address] [place] [address] [email or web address] Sarah Mathews MD [address] [address] CONTINUED ON NEXT PAGE ----- ------- Name: Janine Felder Age/Sex: 84/F : 1940 Unit#: [id number] Attend Dr: Denise Lewis [facility] Re05/13/25 Status: DEP [facility] Disch: ----- ------- SPEC : [id number] RECD: 05/14/25 STATUS: KENYATTA MARTINEZ NUM: [id number] MARCOS: 05/13/[address] [facility] [address]: Denise Lewis [facility] ENTERED: 05/14/25 SP TYPE: Cytology OTHR DR: Sarah Mathews MD ORDERED: Cyto-enhanced ----- ------- Signed (signature on file) Merlyn Sherman MD 05/17/25 1600 ----- ------- END OF REPORT us Generic External Data Provider LAB CYTOLOGY SAIRA SWANSON Final Result [facility] [address] [place] [phone] * US Retroperitoneal Complete (05/07/2025 11:45 AM EST) Anatomical Region Laterality Modality Ultrasound 05/07/2025 11:4 5 AM EST Narrative 05/07/2025 11:47 AM EST [address] [address] Ultrasound Report Signed Patient: Janine Felder MR#: [id number] 33 : 1940 Acct:[id number] Age/Sex: 84 / F ADM Date: 05/06/25 Loc: HO.US Attending Dr: Denise VALENCIA Ordering Physician: Denise Lewis Date of Service: 05/06/25 Procedure(s): US retroperitoneal comp Accession Number(s): [id number] cc: Denise Lewis; Sandra Francois MD Reason for Exam: N39.0 - Urinary tract infection, site not specified CLINICAL HISTORY: N39.0 - Urinary tract infection, site not specified US Renal Comparison: None provided Findings: Right kidney normal size and echotexture, 9.1 cm length. Left kidney normal size and echotexture, 8.3 cm length. No collecting system dilatation of either kidney. Normal color Doppler. Left renal cortical Bosniak 1 cyst measuring 3.5 x 3.5 x 3.2 cm Urinary bladder is unremarkable. Prevoid volume 245 mL. Postvoid volume 0 mL. Bilateral ureteral jets are visualized. IMPRESSION: 1. No acute findings This document has been electronically signed by: Willi Ratliff MD on 05/07/2025 11:45:31 Dictated By: Willi Ratliff MD Signed By: <Electronically signed by Willi Ratliff MD in OV> 05/07/25 1146 DD/ 1145 TD/TT: 05/07/25 1145 Dark Room Attendant: Procedure Note Donotuseinterpreter, Image - 05/07/[address] [address] Ultrasound Report Signed Patient: Vanesa Felder#: [id number] 33 : 1940cct:[id number] Age/Sex: 84 / FADM Date: 05/06/25 Loc: HO.US Attending Dr: Denise VALENCIA Ordering Physician: Denise Lewis Date of Service: 05/06/25 Procedure(s): US retroperitoneal comp Accession Number(s): [id number] cc: Denise Lewis-BC; Sandra Francois MD Reason for Exam: N39.0 - Urinary tract infection, site not specified CLINICAL HISTORY: N39.0 - Urinary tract infection, site not specified US Renal Comparison: None provided Findings: Right kidney normal size and echotexture, 9.1 cm length. Left kidney normal size and echotexture, 8.3 cm length. No collecting system dilatation of either kidney. Normal color Doppler. Left renal cortical Bosniak 1 cyst measuring 3.5 x 3.5 x 3.2 cm Urinary bladder is unremarkable. Prevoid volume 245 mL. Postvoid volume 0 mL. Bilateral ureteral jets are visualized. IMPRESSION: 1. No acute findings This document has been electronically signed by: Willi Ratliff MD on 05/07/2025 11:45:31 Dictated By: Willi Ratliff MD Signed By: <Electronically signed by Wlili Ratliff MD in OV> 05/07/25 1146 DD/ 1145 TD/TT: 05/07/25 1145 Dark Room Attendant: us [facility] External Provider IMG US PROCEDURES Final Result * Lipid Panel, Standard (05/09/2024 8:09 AM EST) Triglycerides 48 <150 mg/dL [facility] Comment:Desirable Triglyceri de: less than 150 mg/dLBorderline High Triglyceride 150-199 mg/dLHigh Triglyceride: 200-499 mg/dLVery High Triglyceride: greater than or equal to 5OO mg/dL Cholesterol 158 <200 mg/dL [facility] Comment:Desirable Cholestero l: less than 200 mg/dLBorderline High Cholesterol: 200-239 mg/dLHigh Cholesterol: greater than 239 mg/dL LDL Cholesterol Calculated 82 <100 mg/dL [facility] Comment:Desirable LDL: less than 100 mg/dLNear Optimal/Above Optimal LDL: 110- 129 mg/dLBorderline High LDL: 130-159 mg/dLHigh LDL: 160-189 mg/dLVery High LDL: greater than or equal to 190 mg/dL HDL Cholesterol 67 >40 mg/dL [facility] Comment:Desirable HDL: great er than 40 mg/dL Note: This HDL assay may give artificially low results in patients with liver disease. Blood Venous blood specimen / Unknown 05/09/2024 8:09 AM EST 05/09/2024 8:09 AM EST us Sarah Mathews MD LAB BLOOD ORDERABLES Final Resul t [facility] [address] [place] [address] [phone] from Last 3 Months or Most Recently Relevant to Health Maintenance Insurance [facility] MEDICARE ADVANTAGE HMO [facility] STANDARD * Guarantor: Janine Felder Account Type Relation to Patient Date of Phone Billing Address Personal/Family Self [place], [place] Care Teams Hospitality House Supervisor Relationship Specialty Start Date End Date Sandra Francois MD [address] [place] [address] PCP - General Family Medicine 04/21/25 Yosef Wolff MD Consulting Physician Hematology and Oncology 05/26/25 Shiraz Staton MD Airplane Refueler Cardiology 05/26/[address] [facility]- Nurse Practitioner Urology 05/26/25 Janet Soliz MD Consulting Physician Pulmonary Disease 05/26/25
--- OUTSIDE RECORDS SUMMARY | 2025-06-16 13:38 | XMS_ITS | Encounter Summary ---
Author Organization [employer] Address [address] [facility] 7t [place] [address] Care Team Providers Care Disk Recordist Name Role Phone Sarah Mathews MD Primary Care Provider [phone] Sandra Francois MD Primary Care Provider [phone] Reason for Visit * Reason Onset Date Comments Hospital Follow-up 09/11/2023 Encounter Details Date Type Department Care Team ([facility] Contact Info) Description 09/11/2023 Telephone [facility] MED & PEDS [address] [place], [place] [phone] Sarah Mathews MD [address] [place] [address] Hospital Follow-up Social History Tobacco Use Types [...] from pt requesting a HDF appt. Hospital: [facility] Date of admission: 09/06 Discharge date: 09/08 Diagnosed: UTI, Fall, Acute kidney injury, Hypokalemia Please contact daughter at [phone] documented in this encounter Plan of Treatment Upcoming Encounters Date Type Department Care Team ([facility] st Contact Info) Description 06/21/2025 9:00 AM EST Clinical Support [facility] MED & PEDS [address] [place] [address] 08/04/2025 9:45 AM EST Immunization [facility] P[facility] [address] [place] [address] documented as of this encounter Visit Diagnoses Not on filedocumented in this encounter Care Teams Disk Recordist Relationship Specialty Start Date End Date Sarah Mathews MD [address] [place] [address] PCP - General Family Medicine 04/15/12 04/20/25 Sandra Francois MD [address] [place] [address] PCP - General Family Medicine 04/21/25 [facility] 06/15/24 05/25/25 Yosef Wolff MD Consulting Physician Hematology and Oncology 05/26/25 Shiraz Staton MD Eyeglass Frames Inspector Cardiology 05/26/25 Denise GLEASONP- Nurse Practitioner Urology 05/26/25 Janet Soliz MD Consulting Physician Pulmonary Disease 05/26/25 documented as of this encounter
--- OUTSIDE RECORDS SUMMARY | 2025-06-16 13:38 | XMS_ITS | Encounter Summary ---
Author Organization [employer] Address [address] [facility] 7t [place] [address] Care Team Providers Care Car Rental Agency Manager Name Role Phone Sarah Mathews MD Primary Care Provider [phone] Sandra Francois MD Primary Care Provider [phone] Reason for Visit * Reason Onset Date Comments FYI 06/16/2024 Encounter Details Date Type Department Care Team ([facility] Contact Info) Description 06/16/2024 Telephone [facility] MEDICINE [address] [place] [address] Sarah Mathews MD [address] [place] [address] FYI Social History Tobacco Use Types Packs/Day [...] - 06/16/2024 11:21 AM EST Tc from [facility] Stating that they admitted pt into Physical Therapy and will be seeing pt once a week. documented in this encounter Plan of Treatment Upcoming Encounters Date Type Department Care Team ([facility] st Contact Info) Description 06/21/2025 9:00 AM EST Clinical Support [facility] MED & PEDS [address] [place] [address] 08/04/2025 9:45 AM EST Immunization [facility] P[facility] [address] [place] [address] documented as of this encounter Visit Diagnoses Not on filedocumented in this encounter Additional Health Concerns Assessment Noted Time PHQ-9 Depression Total Score: 2 04/29/20 24 10:19 AM EST documented as of this encounter Care Teams Car Rental Agency Manager Relationship Specialty Start Date End Date Sarah Mathews MD [address] [place] [address] PCP - General Family Medicine 04/15/12 04/20/25 Sandra Francois MD [address] [place] [address] PCP - General Family Medicine 04/21/25 Juan BENITES 06/15/24 05/25/25 Yosef Wolff MD Consulting Physician Hematology and Oncology 05/26/25 Shiraz Staton MD Senior Maintenance Technician Cardiology 05/26/25 Denise Lewis [facility]- Nurse Practitioner Urology 05/26/25 Janet Soliz MD Consulting Physician Pulmonary Disease 05/26/25 documented as of this encounter
--- OUTSIDE RECORDS SUMMARY | 2025-06-16 13:38 | XMS_ITS | Encounter Summary ---
Author Organization [employer] Address [address] [facility] 7t [place] [address] Care Team Providers Care Machine Shop Apprentice Name Role Phone Sandra Francois MD Primary Care Provider [phone] Encounter Details Date Type Department Care Team (Latest Contact Info) Description 06/14/2025 Travel Social History Tobacco Use Types Packs/Day [...] [facility] [address] [place] [address] 08/04/2025 9:45 AM EST Immunization [facility] [address] [place] [address] documented as of this encounter Visit Diagnoses Not on filedocumented in this encounter Additional Health Concerns Assessment Noted Time PHQ-9 Depression Total Score: 2 03/08/20 25 11:06 AM EDT documented as of this encounter Care Teams Machine Shop Apprentice Relationship Specialty Start Date End Date Sandra Francois MD [address] [place] [address] PCP - General Family Medicine 04/21/25 Yosef Wolff MD Consulting Physician Hematology and Oncology 05/26/25 Shiraz Staton MD Slitter And Rewinder Machine Operator Cardiology 05/26/25 Denise SHELDON- Nurse Practitioner Urology 05/26/25 Janet Soliz MD Consulting Physician Pulmonary Disease 05/26/25 documented as of this encounter
--- NOTE | 2025-06-16 13:59 | A.OFFVIS_ITS ---
Vital Signs 06/16/25 14:09 Height 5 ft 5 in Weight 132 lb BMI 22.0 BP 124/56 L Blood Pressure Location Rt brachial Position Sitting Pulse 78 Pulse Source Pulse Oximeter Pulse Oximetry (%) 94 Oxygen Delivery Method Room Air Intake Visit Reasons: colo screen Intake Note: New pt for EGD consult per recent PET scan abnormality. CC; C/O LUQ pain, intermittent nausea and constipation. No additional sx or concerns at this time. Pt is currently receiving chemo therapy. Template Inspector Required: No Accompanied by: Daughter Allergies nitrofurantoin Allergy (Verified 05/13/25 10:20) Nausea Medication List - Last Reconciled 06/16/25 by Lulu Winkler CNP albuterol sulfate 2.5 mg (3 mL) inhalation Q4H PRN albuterol sulfate 90 mcg/actuation (Ventolin HFA) 2 inhalations inhalation Q6H PRN alprazolam 0.25 mg PO BEDTIME PRN aspirin (Adult Low Dose Aspirin) 81 mg PO DAILY blood pressure test kit-large As directed cetirizine (All Day Allergy (cetirizine)) 10 mg PO DAILY estradiol 0.01%(0.1mg/gram) (Estrace) 1 g vaginal 3XW 90 days fluticasone furoate-vilanterol 100-25 mcg/dose (Breo Ellipta) 1 inh inhalation DAILY gemfibrozil 600 mg PO BID levothyroxine 112 mcg PO DAILY ondansetron 8 mg PO Q8H pravastatin 20 mg PO BEDTIME HPI HPI colo screen: Details: Patient is a 84-year-old female with PMH of nicotine dependence, COPD, anemia. Patient is accompanied by her daughter Lamar. Presents for nonspecific focal activity within the stomach, an incidental finding on a recent PET scan. The PET scan was performed as part of her annual surveillance for small cell lung carcinoma. She does occasionally use [place] for heartburn approx 1x/month. She otherwise denies any upper gastrointestinal symptoms including regurgitation, dysphagia, nausea, or vomiting. She reports a good appetite and stable weight. Regarding her bowel habits, she reports daily bowel movements without straining or feeling of incomplete evacuation, and denies any blood in the stool. Her last colonoscopy was many years ago. She has never had an upper endoscopy. Her past medical history is significant for small cell lung carcinoma, diagnosed over two years ago, for which she actively receives chemotherapy every other Saturday. She has a history of breast cancer status-post lump removal, for which she was on medication for five years. Other chronic conditions include COPD managed by a lockstitch sleeve maker, and hypothyroidism, with a recent dose increase of levothyroxine to 112 mcg. She also has a history of stable baseline anemia and normal liver enzymes. She sees cardiology and is scheduled for a follow-up echocardiogram. Her medications include daily baby aspirin, levothyroxine 112 mcg, a Breo inhaler, and as-needed Zofran for chemotherapy-related nausea and alprazolam. Patient denies: fever/chills, n/v, appetite changes, pyrosis, regurgitation,dysphasia, unintentional wt loss, ab pain or melena/hematochezia. Social hx: -denies ETOH use -denies recreational drug use -current smoker, 6 cigerttes/day - family hx as below -denies personal hx of CA -denies significant cardiopulmonary history -tolerated anesthesia in the past without difficulty. FOR[facility] Medical History (Updated 06/16/25 @ 15:18 by Lulu Winkler CNP) Acid reflux COPD (chronic obstructive pulmonary disease) Anemia Hypoxemia Smoker Diverticulosis Hypercholesteremia IBS (irritable bowel syndrome) HTN (hypertension) Surgical History Small cell carcinoma Hx of tonsillectomy Hx of appendectomy History of lumpectomy Lymphadenopathy, mediastinal Lung mass H/O colonoscopy Family History Sister Breast cancer Social History Household Members: None Housing: Apartment Do you presently have visiting nurse or other home services: No Alcohol intake: never Patient Tobacco Use Status: Current everyday Tobacco user Tobacco use type: Cigarette Cigarette Packs Per Day: 0.25 Cigarettes Per Day: 6 Years Smoked: 60 e-Cigarette/Vaping Use: Currently Using Second Hand Smoke Exposure: No Advance Directives Date on File: 08/04/24 service: No Current occupational status: retired Review of Systems Const Reports as per HPI ENT Reports as per HPI Card Reports as per HPI Resp Reports as per HPI GI Reports as per HPI Reports as per HPI Physical Exam Vital Signs: Last Vital Signs Pulse 78 06/16/25 14:09 BP 124/56 L 06/16/25 14:09 Pulse Ox 94 06/16/25 14:09 Oxygen Delivery Method Room Air 06/16/25 14:09 BMI result Body Mass Index 22.0 Const General: healthy appearing, no acute distress and well developed Nutritional Appearance: average body habitus Orientation/consciousness: patient oriented x3 HEENT Head: Yes normal to inspection, Yes normocephalic and Yes atraumatic Face and sinus: Yes normal facial exam Eyes General: appearance normal, both eyes and all related structures Neck Neck: Yes normal visual inspection Resp Effort & Inspection: normal respiratory effort, able to speak in complete sentences, no tracheal deviation and symmetric chest movement Cardio Jugular venous distension: no JVD GI Inspection: Yes normal to inspection and No distended Palpation (GI): Soft to palpation, not firm, nontender and No hepatosplenomegaly present Auscultation: normal bowel sounds Neuro General: patient oriented x3 Gait exam (Neuro): Normal gait present Psych Appearance: grossly normal Mental Status: mental status grossly normal Speech and movement: Normal speech and movement present Affect: normal affect Attitude: cooperative Thought process: Normal thought process present Thought content: Normal thought content present Insight: Good insight present (Psych) Judgement: Good judgement present (Psych) Assessment & Plan Assessment & Plan (1) Acid reflux: Code(s): K21.9 - Gastro-esophageal reflux disease without esophagitis Category: Medical Qualifiers: Esophagitis presence: esophagitis presence not specified Qualified Code(s): K21.9 - Gastro-esophageal reflux disease without esophagitis Plan: The patient presents for evaluation of nonspecific focal activity in the stomach found incidentally on a PET scan. - Despite Minimal/rare symptoms, further investigation is warranted given her history of malignancy. - Two diagnostic options were discussed: an upper GI series and an upper endoscopy (EGD). - Considering her age and overall health status, an upper GI series is an appropriate, less-invasive first step. - However, due to the need to definitively rule out malignancy, an EGD is also a reasonable option as it allows for direct visualization and biopsy. - Plan is to place orders for both an upper GI series (as urgent) and an EGD. - The patient will proceed with the upper GI series first. - If the results are normal, the need for the EGD will be revisited. - Will follow up after the upper GI series is completed to review results -Lifestyle modifications were recommended, including avoiding trigger foods and beverages (caffeine, carbonation, fatty/greasy foods), not lying down immediatel y after eating, and avoiding overeating. (2) Diverticulosis: Code(s): K57.90 - Diverticulosis of intestine, part unspecified, without perforation or abscess without bleeding Category: Medical Plan: This was an incidental finding on the PET scan. - The patient was educated on the difference between diverticulosis and diverticulitis. - Recommendations were provided to prevent progression to diverticulitis, including maintaining good fiber intake, staying hydrated, and consuming probiotics such as yogurt. - The patient was advised of the signs and symptoms of diverticulitis (e.g., severe abdominal pain, nausea, vomiting, fever) and instructed to seek care if they occur. Plan Follow-up after UGI or sooner as needed Time: I spent a total of 45 minutes on the date of encounter which includes: Preparing to see the patient (reviewed previous documentation, test results and medical history) Performing a medically appropriate exam and/or evaluation Ordering medications, tests, and procedures Documenting clinical information in the health record Orders: Orders [place] upper GI small bowel Today C34.90 - Malignant neoplasm of unspecified part of unspecified bronchus or lung, K21.9 - Gastro-esophageal reflux disease without esophagitis Referrals GI Procedure Notification C34.90 - Malignant neoplasm of unspecified part of unspecified bronchus or lung, K21.9 - Gastro-esophageal reflux disease without esophagitis, R93.89 - Abnormal findings on diagnostic imaging of other specified body structures Coding Level of Care Code New Pt New Pt Level 4 (74838) Patient Type New Diagnoses Gastroesophageal reflux disease, unspecified whether esophagitis present K21.9 Esophagitis presence: esophagitis presence not specified Diverticulosis K57.90
[2025-06-16 14:09] VITALS: BP 124/56; PULSE 78; O2SAT 94; BMI 22.0
== END 2025-06-16 15:12 | disposition home or self-care (01) ==
LOC: HO.HGI 13:36
PROVIDERS: PCP Family Medicine; Visit Provider Nurse Practitioner Family
DX: K21.9 Gastro-esophageal reflux disease without esophagitis (principal); K57.90 Diverticulosis of intestine, part unspecified, without perforation or abscess without bleeding
CPT/HCPCS: 99204

== ENCOUNTER → 2025-06-16 13:35 | Outpatient (BNVA) | payer MEDICARE, MEDICAID, SELFPAY | PROVIDERS: PCP Family Medicine; Visit Provider Nurse Practitioner Family | DX: K21.9 Gastro-esophageal reflux disease without esophagitis (principal); K57.90 Diverticulosis of intestine, part unspecified, without perforation or abscess without bleeding; Z08 Encounter for follow-up examination after completed treatment for malignant neoplasm; F17.210 Nicotine dependence, cigarettes, uncomplicated; Z85.118 Personal history of other malignant neoplasm of bronchus and lung; Z85.3 Personal history of malignant neoplasm of breast; Z79.82 Long term (current) use of aspirin | CPT/HCPCS: 99202 ==